=== PATIENT | female | born 1970 | race Caucasian/White ===

== ENCOUNTER 2022-12-20 09:23 | Outpatient (OUT) | payer MEDICARE, MEDICAID, SELFPAY ==
[2022-12-20 10:16] LABS: Basophils Absolute Auto 0.1 10^3/uL (0.0-0.1); Basophils Percent Auto 0.5 % (0.2-2.0); Eosinophils Absolute Auto 0.2 10^3/uL (0.0-0.7); Eosinophils Percent Auto 1.9 % (0.9-7.0); Hematocrit 47.2 % (36.0-48.0); Hemoglobin 15.5 g/dL (12.0-16.0); Immature Granulocytes Abs Auto 0.05 10^3/uL (0.00-0.03); Immature Granulocytes Pct Auto 0.5 % (0.0-0.5); Lymphocytes Absolute Auto 2.7 10^3/uL (1.2-3.8); Lymphocytes Percent Auto 25.8 % (20.5-60.0); Mean Corpuscular HGB Conc 32.8 g/dL (29.9-35.2); Mean Corpuscular Hemoglobin 27.9 pg (26.7-34.0); Mean Corpuscular Volume 84.9 fL (81.0-99.0); Mean Platelet Volume 10.1 fL (9.5-13.5); Monocytes Absolute Auto 0.8 10^3/uL (0.3-0.8); Monocytes Percent Auto 7.4 % (1.7-12.0); Neutrophils Absolute Auto 6.6 10^3/uL (1.4-6.5); Neutrophils Percent Auto 63.9 % (43.0-75.0); Platelet Count 326 10^3/uL (150-450); Red Blood Count 5.56 10^6/uL (4.20-5.40); Red Cell Distribution Width 14.4 % (11.0-15.0); White Blood Count 10.4 10^3/uL (4.0-11.0)
[2022-12-20 13:15] LABS: Anion Gap 14.7; Carbon Dioxide 24.6 mmol/L (21.0-32.0); Chloride 102 mmol/L (98-107); Potassium 4.3 mmol/L (3.5-5.1); Sodium 137 mmol/L (136-145)
[2022-12-20 13:16] LABS: Alanine Aminotransferase 44 U/L (14-59); Albumin Globulin Ratio 0.8; Albumin Level 3.4 g/dL (3.4-5.0); Alkaline Phosphatase 128 U/L (46-116); Aspartate Amino Transferase 20 U/L (15-37); BUN Creatinine Ratio 19.1; Bilirubin Total 0.3 mg/dL (0.2-1.0); Calcium 9.3 mg/dL (8.5-10.1); Cholesterol 210 mg/dL (<=200); Estimated GFR (African America >60 (>=60); Estimated GFR (Non-African Ame >60 (>=60); Globulin 4.4 g/dL; Glucose 99 mg/dL (74-106); Total Protein 7.8 g/dL (6.4-8.2); Triglycerides 144 mg/dL (<=150); VLDL CHOLESTEROL 28.8 mg/dL
[2022-12-20 13:17] LABS: Chol HDL Ratio 4.5; HDL Cholesterol 47 mg/dL (40-60)
[2022-12-20 13:45] LABS: Estimated Average Glucose 111 mg/dL; Glycohemoglobin A1C 5.5 % (4.5-6.2)
== END 2022-12-20 09:24 | disposition home or self-care (01) ==
PROVIDERS: PCP Family Medicine; Visit Provider Nurse Practitioner Acute Care
DX: I11.9 Hypertensive heart disease without heart failure (principal); E78.2 Mixed hyperlipidemia; E11.9 Type 2 diabetes mellitus without complications
CPT/HCPCS: 36415; 80053; 80061; 83036; 85025

== ENCOUNTER 2023-11-08 07:43 | Outpatient (OUT) | payer MEDICARE, MEDICAID, SELFPAY ==
--- NOTE | 2023-11-08 07:46 | CT_ITS ---
The [address] [address] Patient Name: AGNES ROSSI MRN: [id number] date: 1970 Sex: F Assigned Patient Location: CT Current Patient Location: Accession/Order Number: [id number] Exam Date: 11/08/2023 07:49 Report Date: 11/09/2023 09:21 At the request of: RAFAEL MELTON Procedure: CT lung screening low-dose EXAMINATION: CT lung screening low-dose HISTORY: Nicotine Dependence F17.219 COMPARISON: CT chest 10/27/2022 TECHNIQUE: Axial, Coronal, and Sagittal images were created without the administration of IV contrast material. Dose reduction techniques were achieved by using automated exposure control and/or adjustment of mA and/or kV according to patient size and/or use of iterative reconstruction technique. FINDINGS: LUNGS: Scattered calcified granulomas. No suspicious nodules or acute infiltrates. No significant emphysematous changes. PLEURA: No mass, effusion, or pneumothorax. VASCULATURE: No abnormality. NEY: Calcified lymph nodes compatible with chronic granulomatous disease. MEDIASTINUM: Calcified lymph nodes. CARDIAC: No enlargement, pericardial thickening, or pericardial effusion. Coronary artery calcifications: Absent. AORTA: No aneurysm or dissection. CHEST WALL: No mass or axillary adenopathy BONES: No bone lesion or fracture. LIMITED ABDOMEN: No suspicious findings. Limited images of the upper abdomen. OTHER: Negative. CT/CT lung screening low-dose IMPRESSION: 1. Lung-RADS 2- Benign Appearance or Behavior. Nodules with a very low likelihood of becoming a clinically active cancer due to size or lack of growth. Follow-up CT Chest in 1 year. Electronically authenticated by: ALEM PASCUAL Date: 11/09/2023 09:21
== END 2023-11-08 07:44 | disposition home or self-care (01) ==
LOC: CT 07:43
PROVIDERS: PCP Family Medicine; Visit Provider Internal Medicine
DX: F17.219 Nicotine dependence, cigarettes, with unspecified nicotine-induced disorders (principal)
CPT/HCPCS: 71271

== ENCOUNTER 2023-12-14 12:57 | Outpatient (OUT) | payer MEDICARE, SELFPAY ==
--- NOTE | 2023-12-14 13:02 | MM_ITS ---
Patient Name: AGNES ROSSI MR#: [id number] : 1970 Exam Date: 12/14/2023 Ordering Doctor: DR. MELISSA ERAZO . RADIOLOGY REPORT PROCEDURE: MM TOMOSYNTHESIS SCREENING BI COMPARISON: MG MAMM SCREEN ROMI W CAD, 09/19/2016. MG MAMM SCREEN 3D ROMI CAD, 12/01/2021. INDICATIONS: Screening Calculator Name NCI Breast Cancer Risk Assessment Tool 5 Year Breast Cancer Risk 1.00% Lifetime Breast Cancer Risk 8.50% Personal Breast Cancer No Personal Ovarian Cancer No Treatments None Family Cancers None LOCATION: [facility] BREAST COMPOSITION: The breasts are heterogeneously dense,which may obscure small masses. FINDINGS: DIAGNOSTIC CATEGORY 2--BENIGN FINDING. NO CHANGE FROM COMPARISON. Scattered benign-appearing lymph nodes are present. RIGHT BREAST: No significant suspicious finding. LEFT BREAST: No significant suspicious finding. RECOMMENDATIONS: ROUTINE MAMMOGRAM AND CLINICAL EVALUATION IN 12 MONTHS. PLEASE NOTE: A NORMAL MAMMOGRAM DOES NOT EXCLUDE THE POSSIBILITY OF BREAST CANCER. A CLINICALLY SUSPICIOUS PALPABLE LUMP SHOULD BE BIOPSIED. Dictated by: Minh Sanderson MD on 12/14/2023 at 14:38 Approved by: Minh Sanderson MD on 12/14/2023 at 14:39
== END 2023-12-14 12:58 | disposition home or self-care (01) ==
LOC: MAMMO 12:57
PROVIDERS: PCP Family Medicine; Visit Provider Family Medicine
DX: Z12.31 Encounter for screening mammogram for malignant neoplasm of breast (principal)
CPT/HCPCS: 77063; 77067

== ENCOUNTER 2023-12-19 19:41 | Outpatient (OUT) | payer MEDICARE, MEDICAID, SELFPAY ==
--- OUTSIDE RECORDS SUMMARY | 2023-12-19 20:07 | XMS_ITS | CCD ---
Author Organization [facility] Care Team Providers Care Fire Lieutenant Name Role Phone MD Charu Pham Attending Provider [phone] MD Elvia Sweeney Primary Care Provider Charu Pham Unavailable MD Elvia Sweeney Primary Care Provider MD Charu Pham Attending Provider ELVIA SWEENEY Primary Care Physician MD Elvia Sweeney Primary Care Provider [phone] MD Charu Pham Attending Provider SWEENEY ., DR ELVIA Alex Attending Unavailable SWEENEY ., DR ELVIA Alex Consulting Unavailable SWEENEY ., DR ELVIA Alex Admitting Unavailable SWEENEY ., DR ELVIA Alex Primary Care Unavailable SWEENEY ., DR ELVIA Alex Primary Care Unavailable ALGHONAVDEEP EVANS Admitting Unavailable MAYANK MOHAMAD Attending Unavailable DR BRAD SHORE Admitting Unavailable SWEENEY ., DR ELVIA Alex Primary Care Unavailable MONE, DR SALINAS Attending Unavailable DR BRAD SHORE Consulting Unavailable BERRY VIRGEN Admitting Unavailable SWEENEY ., DR ELVIA Alex Primary Care Unavailable BERRY VIRGEN Attending Unavailable BERRY VIRGEN Consulting Unavailable CAITLYN WATTS Consulting Unavailable SWEENEY ., DR ELVIA Alex Primary Care Unavailable JOHANNA MAHAN Admitting Unavailable JOHANNA MAHAN Attending Unavailable JOHANNA MAHAN Consulting Unavailable SWEENEY ., DR ELVIA Alex Primary Care Unavailable JOHANNA MAHAN Admitting Unavailable JOHANNA MAHAN Attending Unavailable JOHANNA MAHAN Consulting Unavailable DR ALEM PASCUAL Consulting Unavailable RENALDO, ASHA Admitting Unavailable MELISSA ERAZO Primary Care Unavailable RENALDO, ASHA Attending Unavailable RENALDO, ASHA Consulting Unavailable SAMSA ., RAFAEL Admitting Unavailable MELISSA ERAZO Primary Care Unavailable SAMSA ., RAFAEL Attending Unavailable ANKUR, DR ALEM Amado Consulting Unavailable SAMSA ., RAFAEL Consulting Unavailable SWEENEY ., DR ELVIA Alex Admitting Unavailable SWEENEY ., DR ELVIA Alex Attending Unavailable SWEENEY ., DR ELVIA Alex Consulting Unavailable SWEENEY ., DR ELVIA Alex Primary Care Unavailable RUDY, DR EULALIA West Consulting Unavailable Renaldobing BRIAN, Asha Unavailable Melissa Erazo Primary Care Physician NAVDEEP TALLEY Attending Unavailable ROCHELLE WOOTENMITPadmini Attending Unavailable NAVDEEP TALLEY Attending Unavailable LUÍS WOOTEN Attending Unavailable Edenilson Moyer Attending Unavailab Edenilson Caballero Admitting Unavailab Elvia Velasco Primary Care Unavailable Melissa Erazo Attending Unavailable Melissa Erazo Attending Unavailable Melissa Erazo Attending Unavailable Melissa Erazo Attending Unavailable Melissa Erazo Attending Unavailable Melissa Erazo Attending Unavailable Melissa Erazo Attending Unavailable Momario, Mohamad A. Admitting Unavailable Mouchmaye Mohamad A. Attending Unavailable Steffanie Mohamad A. Referring Unavailable Melissa Erazo Admitting Unavailable Melissa Erazo Attending Unavailable Matthew Valienteamad A. Attending Unavailable Steffanie Mohamad A. Attending Unavailable Melissa Erazo Referring Unavailable Allergies Allergy Classification Reported Allergen(s) Allergy Type Date of Onset Reaction(s) Facility (20 sources) Dexamethasone; Translations: [dexamethasone] Drug Allergy 12-11-19 21 Unknown (qualifier value), GI Upset [facility] (8 sources) Penicillins; Translations: [Penicillins] Allergy to substance 02-12-20 13 Other: See Comments [facility] (5 sources) Penicillins (Antibiotic) Propensity to adverse reactions [email or web address] Other (8 sources) Penicillin; Translations: [penicillin] Drug Allergy Unknown (qualifier value) [facility] (6 sources) predniSONE; Translations: [prednisone] Drug Allergy Unknown (qualifier value) [facility] (1 source) Acetaminophen / HYDROcodone; Translations: [HYDROCODONE-ACET AMINOPHEN] Drug Allergy 06-23-19 17 [facility] (1 source) Lisinopril; Translations: [LISINOPRIL] Drug Allergy 05-15-20 [facility] (1 source) Dexamethasone; Translations: [Decadron] Drug Allergy [facility] Repository Medications Current Medications Medication Drug Class(es) Dates Sig (Normalized) Sig (Original) 3 ML semaglutide 1.34 MG/ML Pen Injector [Ozempic] (4 sources) Start: 09-25-2023 inject 1 mg by subcutaneous injection every week Ozempic (1 mg dose) 4 mg/3 mL subcutaneous solution See Instructions, INJECT 1 MG SUBCUANEOUSLY WEEKLY, # 9 mL, Refills(s) 3, Pharmacy: [id number], 162, cm, 09/25/23 13:12:00 EDT, Height/Length Dosing, 121.7, kg, 09/25/23 13:12:00 EDT, Weight Dosing Start Date: 09/25/23 Status: Ordered acetaminophen 325 mg / HYDROcodone bitartrate 5 mg oral tablet (7 sources) Opioid Agonist Start: 09-22-2021 take 1 tablet by mouth every four to six hours Hydrocodone-Acetami nophen Active 1 - 2 TAB PO EVERY 4-6 HOURS 30 September 22, 2021 Start: 04-14-2021 End: 09-15-2021 take 1 tablet by mouth every four to six hours Hydrocodone-Acetaminophen Discontinued 1 - 2 TAB PO EVERY 4-6 HOURS 30 April 14, 2021 September 15, 2021 1:33pm apixaban 5 mg oral tablet (1 source) Factor Xa Inhibitor Start: 10-30-2023 take 1 tablet by mouth twice daily Eliquis 5 mg oral tablet 5 mg = 1 tab(s), Oral, BID, Refills(s) 0 Start Date: 10/30/23 Status: Ordered carvedilol 12.5 mg oral tablet (1 source) alpha-Adrenergic Pranay, beta-Adrenergic Pranay Start: 10-31-2023 take 1 tablet by mouth twice daily Coreg 12.5 mg Tab 12.5 mg = 1 tab(s), Oral, BID, Refills(s) 0 Start Date: 10/31/23 Status: Ordered cephalexin 500 mg oral capsule (8 sources) Cephalosporin Antibacterial Start: 09-15-2021 take 500 mg by mouth three times daily Cephalexin Active 500 MG PO Three times daily September 15, 2021 12:00am Start: 09-15-2021 End: 09-15-2021 Cephalexin Discontinued MG A pril 2021 12:00am September 15, 2021 2:19pm cholecalciferol 0.125 mg oral capsule (4 sources) Vitamin D Start: 04-01-2021 take 125 ug by mouth once daily Cholecalciferol (Vitamin D3) Active 125 MCG PO Daily April 01, 2021 12:00am doxycycline hyclate 100 mg oral tablet (11 sources) Tetracycline-c lass Drug Start: 09-22-2021 take 100 mg by mouth twice daily Doxycycline Hyclate Active 100 MG PO Twice daily 03 08September 22, 2021 12:00am Start: 04-14-2021 End: 09-15-2021 take 100 mg by mouth twice daily Doxycycline Hyclate Discontinued 100 MG PO Twice daily 03 08April 14, 2021 1:00am September 15, 2021 1:31pm Start: 02-14-2018 End: 02-24-2018 take 100 mg by mouth twice daily Doxycycline Hyclate Discontinued 100 MG PO Twice daily 23 03February 14, 2018 12:00am February 24, 2018 12:02am DULoxetine 30 mg delayed release oral capsule (9 sources) Serotonin and Norepinephrine Reuptake Inhibitor Start: 04-01-2021 take 60 mg by mouth once daily at bedtime Duloxetine Active 60 MG PO Daily at bedtime April 01, 2021 12:00am take 1 capsule by [facility] every twenty-four hours DULoxetine HCl 60 MG 1 capsule Orally Once a day Active take 1 capsule by mo [facility] every twenty-four hours DULoxetine HCl 30 MG 1 capsule Orally Once a day Active duloxetine 30 mg Cap-DR (1 source) Start: 09-01-2022 take 1 capsule by mouth once daily duloxetine 30 mg Cap-DR 30 mg, Oral, Daily, Refills(s) 0 Start Date: 09/01/22 Status: Ordered famotidine 20 mg oral tablet (9 sources) Histamine-2 Receptor Antagonist Start: 09-15-2021 take 20 mg by mouth once daily Famotidine Active 20 MG PO Daily September 15, 2021 12:00am Start: 05-16-2016 End: 04-01-2021 take 40 mg by mouth once daily Famotidine Discontinued 40 MG PO Daily February 14, 2018 12:00am April 01, 2021 11:02am Comment on above: Famotidine Active 40 MG Oral Daily February 14, 2018 11:07am gabapentin 100 mg oral capsule (12 sources) Anti-epileptic Agent Start: 2020 take 100 mg by mouth three times daily Gabapentin Active 100 MG PO Three times daily April 01, 2021 12:00am Comment on above: Take 100 mg by mouth three times daily. hydroCHLOROthiazide 25 mg oral tablet (3 sources) Thiazide Diuretic Start: 2023 take 1 tablet by mouth once daily hydrochlorothiazide 25 mg Tab 25 mg = 1 tab(s), Oral, Daily, # 90 tab(s), Refills(s) 0, Pharmacy: [id number], 162, cm, 09/25/23 13:12:00 EDT, Height/Length Dosing, 121.7, kg, 09/25/23 13:12:00 EDT, Weight Dosing Start Date: 09/25/23 Status: Ordered hydroCHLOROthiazide 12.5 mg / lisinopril 20 mg oral tablet (3 sources) Thiazide Diuretic, Angiotensin Converting Enzyme Inhibitor take 1 tablet by mouth every twenty-four hours Lisinopril-hydroCHLOROthi azide 20-12.5 MG 1 tablet Orally Once a day Active take 1 tablet by mouth every twe nty-four hours losartan potassium 100 mg oral tablet (11 sources) Angiotensin 2 Receptor Pranay Start: 09-25-2023 take 1 tablet by mouth once daily losartan 100 mg Tab 100 mg = 1 tab(s), Oral, Daily, # 90 tab(s), Refills(s) 0, Pharmacy: [id number], 162, cm, 09/25/23 13:12:00 EDT, Height/Length Dosing, 121.7, kg, 09/25/23 13:12:00 EDT, Weight Dosing Start Date: 09/25/23 Status: Ordered Start: 09-15-2021 take 1 tablet by bony once daily losartan 25 mg Tab 25 mg = 1 tab(s), Oral, Daily, Refills(s) 0 Start Date: 09/01/22 Status: Ordered Losartan Leigh um Active metFORMIN hydrochloride 500 mg oral tablet (17 sources) Biguanide Start: 01-23-2023 take 1 tablet by mouth once daily metformin 500 mg Tab See Instructions, TAKE 1 TABLET BY MOUTH EVERY DAY, # 90 tab(s), Refills(s) 3, Pharmacy: [id number], 162, cm, 09/25/22 11:02:00 EDT, Height/Length Dosing, 138.5, kg, 09/25/22 11:02:00 EDT, Weight Dosing Start Date: 01/23/23 Status: Ordered Start: 02-14-2018 metFORMIN (GLU COPHAGE) 500 mg tablet Metformin Active 500 MG Oral Daily February 14, 2018 11:07am 0 02/14/2018 Active Comment on above: Metformin Active 500 MG Oral Daily February 14, 2018 11:07am minocycline 100 mg oral capsule (1 source) Tetracycline-class Drug take 1 capsule by mouth every twelve hours Minocycline HCl 100 MG 1 capsule Orally every 12 hrs Active montelukast 10 mg oral tablet (5 sources) Leukotriene Receptor Antagonist Start: take 1 tablet by mouth once daily montelukast 10 mg Tab 10 mg = 1 tab(s), Oral, Daily, Refills(s) 0, Shortness of breath or wheezing Start Date: 09/01/22 Status: Ordered Comment on above: Take 10 mg by mouth once daily. Nurtec (3 sources) Nurtec Active Nurtec Damien-Olinda g omeprazole 20 mg delayed release oral capsule (16 sources) Proton Pump Inhibitor Start: 09-01-2022 omeprazo le 20 mg Cap-DR 20 mg = 1 cap(s), Oral, Daily, Refills(s) 0, Control of stomach acid Start Date: 09/01/22 Status: Ordered Start: 04-01-2021 End: 09-15-2021 take 20 mg by mouth once daily in the morning Omeprazole Discontinued 20 MG PO Every morning April 01, 2021 12:00am September 15, 2021 1:43pm take 1 capsule by [facility] once daily Omeprazole 40 MG 1 capsule 30 minutes before morning meal Orally Once a day Active Ozempic (3 sources) Ozempic Active polyethylene glycol 3350 88276 mg powder for oral solution (3 sources) Osmotic Laxative Start: 3 take 17 g by mouth once daily polyethylene glycol 3350 Oral Pwdr for Recon 17 gm, Oral, Daily, Refills(s) 0 Start Date: 09/01/22 Status: Ordered rimegepant 75 mg disintegrating oral tablet (9 sources) Start: 3 take 1 tablet under the tongue once Nurtec ODT 75 mg oral tablet, disintegrating 75 mg = 1 tab(s), SubLingual, Once, at onset of migraine, Refills(s) 0, Migraine headache Start Date: 09/25/22 Status: Ordered Start: 09-15-2021 Rimegepant (Nu rtec Odt) 75 mg tablet,disintegrating Active 75 MG PO As Directed September 15, 2021 12:00am 1 mg dose 1.5 ml semaglutide 1.34 mg/ml pen injector (1 source) Start: 09-25-2022 inject 1 mg by subcutaneous injection every week Ozempic 2 mg/1.5 mL (1 mg dose) subcutaneous solution 1 mg, SubCutaneous, qWeek, 6 EA, Refill(s) 0, [facility] #[id number], 162, cm, 09/25/22 11:02:00 EDT, Height/Length Dosing, 138.5, kg, 09/25/22 11:02:00 EDT, Weight Dosing Start Date: 09/25/22 Status: Ordered SUMAtriptan 100 mg oral tablet (6 sources) Serotonin-1b and Serotonin-1d Receptor Agonist Start: 10-04-2020 Sumatriptan Succinate Active 100 MG PO As Directed April 01, 2021 12:00am SUMAtriptan Acti ve Comment on above: TAKE 1 TAB AT ONSET OF MIGRAINE,MAY REPEAT IN 2 HRS MAX 2 TABS/DAY, 2 TIMES A WEEK topiramate 50 mg oral tablet (20 sources) Start: 09-01-2022 take 1 tablet by mouth twice daily Topamax 50 mg Tab 50 mg = 1 tab(s), Oral, BID, Refills(s) 0, Migraine headache Start Date: 09/01/22 Status: Ordered Start: 04-01-2021 End: 09-15-2021 take 1 tablet by mouth twice daily Topamax 50 mg Tab 50 mg = 1 tab(s), Oral, BID, Refills(s) 0 Start Date: 09/01/22 Status: Ordered Start: 12-01-2020 take 1 tablet by bony th twice daily topiramate (TOPAMAX) 25 mg tablet Take 25 mg by mouth twice daily. 0 12/01/2020 Active take 1 tablet by bony th every twenty-four hours Topamax 50 MG 1 tablet Orally Once a day Active Comment on above: Take 25 mg by mouth twice daily. Vitamin D3 (1 source) Vitamin D3 Activ e Completed/Discontinued Medications Medication Drug Class(es) Dates Sig (Normalized) Sig (Original) acetaminophen 300 mg / codeine phosphate 30 mg oral tablet (4 sources) Opioid Agonist Start: 02-14-2018 End: 04-01-2021 take 1 tablet by mouth every four to six hours Acetaminophen-Code ine Discontinued 1 TAB PO EVERY 4-6 HOURS February 14, 2018 12:00am April 01, 2021 11:05am albuterol 0.83 mg/ml inhalation solution (11 sources) beta2-Adrenergic Agonist Start: 02-14-2018 albuterol (PROVENTIL) 2.5 mg /3 mL (0.083 %) nebulizer solution Albuterol Sulfate Active 1 INH Inhalation EVERY 4-6 HOURS February 14, 2018 11:07am 0 02/14/2018 Active Start: 02-14-2018 take 1 puff(s) by in halation every four to six hours Albuterol Sulfate Active 1 PUFF INHALATION EVERY 4-6 HOURS February 14, 2018 12:07pm Start: 02-14-2018 Albuterol Sulf ate Active 1 INH INHALATION EVERY 4-6 HOURS February 14, 2018 12:00am Start: 02-14-2018 take 1 puff(s) by in halation every four to six hours Albuterol Sulfate Active 1 PUFF INHALATION EVERY 4-6 HOURS February 14, 2018 12:00am Start: 02-14-2018 take 1 puff(s) by in halation every four to six hours Albuterol Sulfate Active 1 PUFF INHALATION EVERY 4-6 HOURS February 13, 2018 11:00pm take 2 puff(s) by in halation every four hours as needed Albuterol Sulfate HFA 108 (90 Base) MCG/ACT INHALE 2 PUFFS EVERY 4 HOURS NEEDED Inhalation for 17 Days Active Comment on above: Albuterol Sulfate Ac tive 1 INH Inhalation EVERY 4-6 HOURS February 14, 2018 11:07am benzonatate 100 mg oral capsule (4 sources) Non-narcotic Antitussive Start: 02-15-20 18 End: 02-20-20 18 take 1 capsule by mouth three times daily Benzonatate (Tessalon Perles) 100 mg capsule Discontinued 100 MG PO Three times daily 20 February 14, 2018 12:57pm February 19, 2018 12:01am 60 actuat budesonide 0.16 mg/actuat / formoterol fumarate 0.0045 mg/actuat metered dose inhaler (7 sources) Corticosteroid, beta2-Adrenergic Agonist Start: 11-27-19 take 2 puff(s) by inhalation twice daily SYMBICORT 160-4.5 mcg/actuation inhaler Inhale 2 Puffs as instructed twice daily. 0 11/26/2020 Active Start: 02-14-2018 End: 04-01-2021 take 1 puff(s) by inhalation every four to six hours Budesonide-Formoterol (Symbicort) 160-4.5 mcg/actuation HFA aerosol inhaler Discontinued 1 PUFF INHALATION EVERY 4-6 HOURS February 14, 2018 12:07pm April 01, 2021 11:05am Start: 02-14-2018 End: 04-01-2021 take 1 puff(s) by inhalation every four to six hours Budesonide-Formoterol (Symbicort) 160-4.5 mcg/actuation HFA aerosol inhaler Discontinued 1 PUFF INHALATION EVERY 4-6 HOURS February 14, 2018 12:00am April 01, 2021 11:05am Start: 02-14-2018 End: 04-01-2021 take 1 puff(s) by inhalation every four to six hours Budesonide-Formoterol (Symbicort) 160-4.5 mcg/actuation HFA aerosol inhaler Discontinued 1 PUFF INHALATION EVERY 4-6 HOURS February 13, 2018 11:00pm April 01, 2021 10:05am take 2 puff(s) by mo uth twice daily Symbicort 160-4.5 MCG/ACT INHALE 2 PUFFS BY MOUTH TWICE A DAY Inhalation for 30 Days Active Comment on above: Inhale 2 Puffs as in structed twice daily. dicyclomine hydrochloride 20 mg oral tablet (1 source) Anticholinergic Start: take 1 tablet by mouth every six hours as needed for pain dicyclomine (BENTYL) 20 mg tablet TAKE 1 TABLET BY MOUTH EVERY 6 HOURS NEEDED FOR ABDOMINAL PAIN 0 10/17/2020 Active Comment on above: TAKE 1 TABLET BY BONY TH EVERY 6 HOURS NEEDED FOR ABDOMINAL PAIN metoclopramide 10 mg oral tablet (1 source) Dopamine-2 Receptor Antagonist Start: take 1 tablet by mouth every six hours as needed metoclopramide HCl (REGLAN) 10 mg tablet Take 10 mg by mouth every 6 hours as needed. 0 10/17/2020 Active Comment on above: Take 10 mg by mouth every 6 hours as needed. nystatin 100 unt/mg topical powder (1 source) Polyene Antifungal Start: nystatin (MYCOSTATIN) powder APPLY TO AFFECTED AREA 4 TIMES A DAY NEEDED 0 12/29/2019 Active Comment on above: APPLY TO AFFECTED AR EA 4 TIMES A DAY NEEDED sertraline 25 mg oral tablet (1 source) Serotonin Reuptake Inhibitor Start: take 1 tablet by mouth once daily in the morning sertraline (ZOLOFT) 25 mg tablet TAKE 1 TABLET BY MOUTH EVERY DAY IN THE MORNING 0 12/26/2019 Active Comment on above: TAKE 1 TABLET BY BONY TH EVERY DAY IN THE MORNING triamcinolone acetonide 40 mg/ml injectable suspension (2 sources) Corticosteroid Start: Kenalog-40 October, 20 mg verapamil hydrochloride 120 mg extended release oral tablet (9 sources) Calcium Channel Pranay Start: End: Verapamil Discontinued 120 MG PO 1700 April 01, 2021 12:00am September 15, 2021 2:19pm take 1 tablet by mouth every eig ht hours Verapamil HCl 120 MG 1 tablet Orally Three times a day Not-Taking Problems Active Problems Problem Classification Problem Date Documented Da te Episodic/Chronic Abdominal hernia (2 sources) Diaphragmatic hernia; Translations: [Diaphragmatic hernia without obstruction or gangrene] Onset: 4 Episodic Asthma (11 sources) 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; Translations: [Asthma] Onset: 3 09-01-2022 Chronic Cardiac dysrhythmias (1 source) Atrial fibrillation 10-30-2023 Chronic Cardiac dysrhythmias (2 sources) Palpitations; Translations: [Palpitations] Onset: 3 Episodic Chronic obstructive pulmonary disease and bronchiectasis (2 sources) Chronic obstructive pulmonary disease, unspecified; Translations: [Chronic obstructive pulmonary disease, unspecified] Onset: 3 Chronic Diabetes mellitus with complications (1 source) Type 2 diabetes mellitus with unspecified complications; Translations: [TYPE 2 DM W/UNS COMPLICATIONS] Onset: 2 Chronic Diabetes mellitus without complication (12 sources) Type 2 diabetes mellitus; Translations: [Type 2 diabetes mellitus without complication] Onset: 3 09-01-2022 Chronic Disorders of lipid metabolism (3 sources) Pure hypercholesterolemia, unspecified; Translations: [Mixed hyperlipidemia] Onset: 2 Chronic Esophageal disorders (5 sources) Gastroesophageal reflux disease without esophagitis; Translations: [Gastro-esophageal reflux disease without esophagitis] Onset: 4 Chronic Essential hypertension (7 sources) Hypertensive disorder; Translations: [Essential (primary) hypertension] Onset: 3 09-25-2022 Chronic Headache; including migraine (5 sources) Headache 09-01-2022 Episodic Hemorrhoids (5 sources) Hemorrhoids 09-01-2022 Episodic Hypertension with complications and secondary hypertension (2 sources) Hypertensive heart disease without heart failure; Translations: [Hypertensive heart disease without heart failure] Onset: 3 Chronic Joint disorders and dislocations; trauma-related (5 sources) Derangement of knee 09-01-2022 Chronic Nutritional deficiencies (6 sources) Deficiency of vitamin D3; Translations: [Vitamin D deficiency, unspecified] Onset: 2 09-01-2022 Chronic Osteoarthritis (5 sources) Osteoarthritis 09-01-2022 Chronic Comment on above: idiopathic Other and unspecified benign neoplasm (2 sources) Polyp of colon; Translations: [Polyp of colon] Onset: 4 Episodic Other circulatory disease (10 sources) Raynaud's phenomenon 09-01-2022 Chronic Comment on above: isolated, primary Other connective tissue disease (5 sources) Thumb joint painful on movement 09-25-2022 Episodic Other connective tissue disease (2 sources) Pain in right hand Episodic Other connective tissue disease (2 sources) Trigger thumb, right thumb Episodic Other connective tissue disease (1 source) Disorder of muscle; Translations: [Other specified disorders of muscle] Onset: 4 Episodic Other connective tissue disease (3 sources) Pelvic floor dysfunction 10-18-2023 Episodic Other gastrointestinal disorders (1 source) Constipation by outlet obstruction; Translations: [Outlet dysfunction constipation] Onset: 4 Episodic Other gastrointestinal disorders (3 sources) Constipation 10-18-2023 Episodic Other gastrointestinal disorders (1 source) Constipation, unspecified; Translations: [Constipation, unspecified] Onset: 4 Episodic Other inflammatory condition of skin (5 sources) Psoriasis 09-01-2022 Chronic Other liver diseases (5 sources) Steatosis of liver 09-01-2022 Chronic Other liver diseases (1 source) Fatty (change of) liver, not elsewhere classified; Translations: [FATTY CHANGE LIVER NEC] Onset: 2 Chronic Other lower respiratory disease (1 source) Apnea; Translations: [Apnea, not elsewhere classified] Onset: 4 Episodic Other nervous system disorders (4 sources) Carpal tunnel syndrome; Translations: [Carpal tunnel syndrome, unspecified upper limb] 04-14-2021 Chronic Other nervous system disorders (4 sources) Ulnar nerve entrapment at elbow; Translations: [Lesion of ulnar nerve, unspecified upper limb] 04-14-2021 Chronic Other nervous system disorders (12 sources) Lesion of ulnar nerve, left upper limb; Translations: [Cubital tunnel syndrome on left] Onset: 1 Resolved: 2 Chronic Other nervous system disorders (7 sources) Carpal tunnel syndrome of left wrist; Translations: [Carpal tunnel syndrome, left upper limb] Chronic Other nervous system disorders (5 sources) Carpal tunnel syndrome, left upper limb; Translations: [Left carpal tunnel syndrome G56.02] Onset: 1 Resolved: 2 Chronic Other nervous system disorders (3 sources) Carpal tunnel syndrome of right wrist; Translations: [Carpal tunnel syndrome, right upper limb] Chronic Other nervous system disorders (1 source) Carpal tunnel syndrome, right upper limb Chronic Other nervous system disorders (5 sources) 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 Comment on above: left arm Other nervous system disorders (4 sources) Pain in limb; Translations: [Other acute postprocedural pain] 04-14-2021 Episodic Other nervous system disorders (2 sources) Anesthesia of skin Onset: 2 Resolved: 2 Episodic Other non-traumatic joint disorders (4 sources) Pain in unspecified hip; Translations: [PAIN IN UNSPECIFIED HIP] Onset: 3 Episodic Other nutritional; endocrine; and metabolic disorders (5 sources) Metabolic syndrome X 09-01-2022 Chronic Other nutritional; endocrine; and metabolic disorders (6 sources) Morbid obesity; Translations: [Morbid (severe) obesity due to excess calories] Onset: 4 09-01-2022 Chronic Other nutritional; endocrine; and metabolic disorders (1 source) Metabolic syndrome; Translations: [METABOLIC SYNDROME] Onset: 2 Chronic Other nutritional; endocrine; and metabolic disorders (5 sources) Body mass index 40+ - severely obese; Translations: [Morbid (severe) obesity due to excess calories] Onset: 1 12-10-2020 Chronic Other nutritional; endocrine; and metabolic disorders (2 sources) Morbid (severe) obesity due to excess calories; Translations: [Morbid (severe) obesity due to excess calories] Onset: 3 Chronic Other nutritional; endocrine; and metabolic disorders (1 source) Obesity; Translations: [Other obesity due to excess calories] Onset: 4 Chronic Other nutritional; endocrine; and metabolic disorders (1 source) Obesity caused by energy imbalance 11-14-2023 Chronic Other screening for suspected conditions (not mental disorders or infectious disease) (9 sources) Encounter for screening mammogram for malignant neoplasm of breast; Translations: [Encounter for screening for malignant neoplasm of cervix] Onset: 2 Episodic Residual codes; unclassified (4 sources) Obstructive sleep apnea (adult) (pediatric); Translations: [OBSTRUCTIVE SLEEP APNEA] Onset: 2 Chronic Residual codes; unclassified (1 source) Idiopathic hypersomnia with long sleep time; Translations: [IDIO HYPERSOMNIA W/LONG SLEEP TIME] Onset: 2 Chronic Residual codes; unclassified (4 sources) Other specified postprocedural states Onset: 1 Resolved: 2 Episodic Residual codes; unclassified (2 sources) Acquired absence of organ; Translations: [Acquired absence of other specified parts of digestive tract] Onset: 4 Episodic Residual codes; unclassified (2 sources) Pelvic organ finding; Translations: [Acquired absence of both cervix and uterus] Onset: 4 Episodic Spondylosis; intervertebral disc disorders; other back problems (2 sources) Arthropathy of lumbar facet joint; Translations: [Spondylosis without myelopathy or radiculopathy, lumbar region] 02-02-2021 Chronic Spondylosis; intervertebral disc disorders; other back problems (5 sources) Sciatica 09-01-2022 Episodic Substance-related disorders (11 sources) Smoker; Translations: [Nicotine dependence, cigarettes, with unspecified nicotine-induced disorders] Onset: 3 09-25-2022 Chronic Unclassified (2 sources) COUGH, UNSPECIFIED; Translations: [COUGH, UNSPECIFIED] Onset: 2 Unclassified (1 source) CONTACT W/AND (SUSP) EXPOS COVID-19; Translations: [CONTACT W/AND (SUSP) EXPOS COVID-19] Onset: 2 Unclassified (4 sources) Patient encounter status 09-25-2023 Past or Other Problems Problem Classification Problem Date Documented Da te Episodic/Chronic Other upper respiratory infections (1 source) Acute upper respiratory infection, unspecified; Translations: [ACUTE UP RESPIRATORY INFECTION UNS] Onset: 11-28-2021 Episodic Residual codes; unclassified (2 sources) Tobacco use; Translations: [Tobacco use] Onset: 02-16-2023 Episodic Unclassified (1 source) COUGH, UNSPECIFIED; Translations: [COUGH, UNSPECIFIED] Onset: 11-25-2021 Results Test Name Value Interpretation Reference Range [facility] [place] [facility] Office/Clini c Noteon 12-13-2023 Family Medicine Office/Clinic Note Family Medicine Office/Clinic Note Chief Complaint Inital Medicare Wellness Visit Review of Systems PHQ Score Initial Depression Screen Score: 0 SCORE Physical Exam Vitals & Measurements HR: 65(Peripheral) BP: 130/70 SpO2: 93% HT: 161.5 cm HT: 64 in WT: 123.7 kg WT: 272.14 lb BMI: 47.43 Assessment/Plan 1. Encounter for initial annual wellness visit in Medicare patient (Z00.00: Encounter for general adult medical examination without abnormal findings) The patient was given a customized and personalized print out of all the current AHRQ USPSTF?s recommendations for preventative services and all current CDC recommended immunizations, relevant risk recommendations and the following patient brochures were given. Reviewed Medicare Prevention Services checklist. CDC-Falls Prevention and home safety screening reviewed. [place] Advance Directives reviewed. Patient provided with education and documents given to patient to take home and complete. Patient encouraged to bring in for scanning into chart. Patient denies any problems with ADL?s and Instrumental ADL?s. Cognitive screening completed with memory and clock face drawing. No deficits noted. Immunization record reviewed patient declined flu and pneumococcal immunizations today. Discussed Shingrix vaccine with educational handout and availability. No COVID vaccines have been administered. Allergies and medications reviewed and up to date. No concerns with taking medication as prescribed. Reviewed OTC medications, medication list up to date. Blood tests were reviewed. Labs are UTD. No concerns with bowel/bladder. Colonoscopy last completed 10/22/2023. Reviewed pain symptoms : chronic knee pain, rates pain as a 3 out of 10, no pain medications taken. Patient sees Dr. Kay as needed for knee pain. Patient does not have a follow up scheduled as she reports she is to call and make an appointment when she is ready for knee replacement surgery. Patient declines any signs or symptoms of depression at this time. 8 minutes spent with screening and documentation. PHQ2 screening score 0. Patient denies alcohol usage. 2 minutes spent with screening and documentation. Audit score 0 . Follow up scheduled with PCP, 12/27/2023. AWV has been scheduled, 12/04/2024. Abnormal findings with fall risk. Patient admits to 3-4 falls in last 12 months and voices worries about falling. Patient has problems with sitting, standing or ambulation due to chronic pain in her knees. Patient aware with keeping walk way area free of clutter to prevent tripping and/or falling. Patient admits to using a cane at home to assist her with ambulation. Patient qualifies for chronic care management, declines at this time. Handout provided to patient on CCM and instructed to call office if she changes her mind. 2. Afib (I48.91: Unspecified atrial fibrillation) Patient denies having episodes with irregular or fast/rapid heartbeat. Heart rate in office today is 65 and regular. Taking medications Eliquis and carvedilol. Denies concerns with increased fatigue and/or sudden change in weight. No pain to chest or belly region. Patients are at higher risk of this condition if you smoke, are older, have diabetes, or are overweight. Voices understanding with symptoms to monitor for and follow instructions about medicines, diet, exercise, and follow up visits. Patient follows up with [facility], last visit notes available in chart and have been reviewed. Cardiac Healthy Nutrition reviewed with patient. Patient has cardiology follow up 12/14/2023. 3. Morbid obesity (E66.01: Morbid (severe) obesity due to excess calories) A combination of diet and exercise can help you lose weight. Discussed weight loss benefits to dietary management and overall health with increased cardiovascular risks associated with waist measurement female>35 men>40. Reminded of importance to work on lowering current body weight with healthy dietary intake choices and portion control. Reviewed goals and patients readiness with needing to make a lifestyle change. Will work on increasing daily activity to prevent further weight gain. Will continue to monitor during office visits with progress. 4. Body mass index (BMI) of 45.0-49.9 in adult (Z68.42: Body mass index [BMI] 45.0-49.9, adult) The standard range for ages 18 and older is >=18.5 and < 25 kg/m2. Your BMI 47.43 today was above this range, this falls in the morbid obese category and there are medical benefits to weight loss. BMI monitoring is helpful with identifying a weight problem that may be related to a medical condition, or may increase the risk for medical problems. Your BMI and weight management will be followed at subsequent visits with your provider and monitored for progress. 5. Controlled type 2 diabetes mellitus without complication, without long-term current use of insulin, (E11.9: Type 2 diabetes mellitus without complications)Diabe tavo mellitus type II, controlled Patient is compliant on current DM medica (more content not included)... [facility] Comment on above: Result Comment: Elec tronically Signed By: Freeman AIKEN, Melissa Mary\.br\Date and Time Signed: 12/13/23 08:15 EDT\.br\Electronically Co-Signed By: Sophie Cano\.elijah\Date and Time Co-Signed: 12/03/23 15:44 EDT Ambulatory Visit Summaryon 0 12-03-2023 Ambulatory Visit Summary Ambulatory Visit Summary JOVANA XIE :1970 Visit Date:12/03/2023 Ambulatory Visit Instructions Your Diagnosis Encounter for initial annual wellness visit in Medicare patient Afib Morbid obesity Body mass index (BMI) of 45.0-49.9 in adult Controlled type 2 diabetes mellitus without complication, without long-term current use of insulin, Diabetes mellitus type II, controlled HTN (hypertension) Osteoarthritis Advanced directives, counseling/discussi on Screening mammogram for breast cancer, Screening mammogram for breast cancer Immunization refused Tests Performed [place] Mamm Screen w/CAD if perf and 3D Armaan -- Results Pending -- Please visit your patient portal for your results or contact your primary care physician. Your Care Team Attending Physician - Melissa Erazo MD Primary Care Physician - Melissa Erazo MD. This Is Your Medications List apixaban (Eliquis 5 mg oral tablet) carvedilol (Coreg 12.5 mg Tab) hydrochlorothiazide (hydrochlorothiazid e 25 mg Tab) losartan (losartan 100 mg Tab) metformin (metformin 500 mg Tab) omeprazole (omeprazole 20 mg Cap-DR) rimegepant (Nurtec ODT 75 mg oral tablet, disintegrating) semaglutide (Ozempic (1 mg dose) 4 mg/3 mL subcutaneous solution) topiramate (Topamax 50 mg Tab) Procedures Performed Colonoscopy (10/22/2023), Esophagogastroduode noscopy (10/22/2023), Cardiac catheter (2005), MANDI BSO - Total abdominal hysterectomy and bilateral salpingo-oophorecto my (01/15/2004), Arthroscopy, History of lumbar spine surgery, Tonsillectomy and adenoidectomy. Discharge Vitals Heart Rate (Peripheral) 65 Blood Pressure 130/70 Height 161.5 cm Height 64 in Weight 123.7 kg Weight 272.14 lb BMI 47.43 What to do next Scheduled Follow-Up Appointments 2023 2:00 PM EDT With: Freeman AIKEN, Melissa Mary Where: [facility] [address] [place] [id number]- \.br\ Medications\.br\ What How Much When Instructions\.br\ Unchanged apixaban (Eliquis 5 mg oral tablet) 1 Tablets By Mouth 2 times a day\.br\ Unchanged carvedilol (Coreg 12.5 mg Tab) 1 Tablets By Mouth 2 times a day\.br\ Unchanged hydrochlorothiazide (hydrochlorothiazide 25 mg Tab) 1 Tablets By Mouth Every day\.br\ Unchanged losartan (losartan 100 mg Tab) 1 Tablets By Mouth Every day\.br\ Unchanged metformin (metformin 500 mg Tab) See instructions TAKE 1 TABLET BY MOUTH EVERY DAY \.br\ Unchanged omeprazole (omeprazole 20 mg Cap-DR) 1 Capsules By Mouth Every day\.br\ Unchanged rimegepant (Nurtec ODT 75 mg oral tablet, disintegrating) 1 Tablets Sublingual Once at onset of migraine \.br\ Unchanged semaglutide (Ozempic (1 mg dose) 4 mg/ 3 mL subcutaneous solution) See instructions INJECT 1 MG SUBCUANEOUSLY WEEKLY \.br\ Unchanged topiramate (Topamax 50 mg Tab) 1 Tablets By Mouth 2 times a day\.br\ Allergies\.br\ Decadron (Unknown)\.br\ predniSONE (Unknown)\.br\ penicillin (Unknown)\.br\ Problems\.br\ Ongoing - Any problem that you are currently receiving treatment for.\.br\ Afib\.br\ Body mass index (BMI) of 45.0-49.9 in adult\.br\ Chronic GERD\.br\ Colon cancer screening\.br\ Colon polyp\.br\ Constipation, outlet dysfunction\.br\ Controlled type 2 diabetes mellitus without complication, without long-term current use of insulin\.br\ Derangement of knee\.br\ Diabetes mellitus type II, controlled\.br\ Extrinsic asthma with status asthmaticus\.br\ Headache\.br\ Hemorrhoids\.br\ Hiatal hernia\.br\ HTN (hypertension)\.br\ Metabolic syndrome X\.br\ Morbid obesity\.br\ Obesity due to excess calories\.br\ Osteoarthritis\.br\ Pain in thumb joint with movement of right hand\.br\ Pelvic floor dysfunction\.br\ Psoriasis\.br\ Raynaud's phenomenon without gangrene\.br\ Raynauds phenomenon\.br\ S/P cholecystectomy\.br\ S/P hysterectomy\.br\ Sciatica\.br\ Smoker\.br\ Steatosis of liver\.br\ Ulnar neuropathy\.br\ Vitamin D3 deficiency\.br\ Historical - Any problem that you are no longer receiving treatment for.\.br\ Asthma\.br\ Patient Survey\.br\ You may receive a survey via text or e-mail asking about your office visit. Please share your experience with us by completing your survey. We appreciate your feedback and thank you for choosing us for your care.\.br\ Education Materials\.br\ Diabetes Mellitus Basics\.br\ \.br\ Diabetes mellitus, or diabetes, is a long-term (chronic) disease. It occurs when the body does not properly use sugar (glucose) that is released from food after you eat.\.br\ Diabetes mellitus may be caused by one or both of these problems:\.br\ ? \.br\ Your pancreas does not make enough of a hormone called insulin.\.br\ ? \.br\ Your body does not react in a normal way to the insulin that it makes.\.br\ Insulin lets glucose enter cells in your body. This gives you energy. If you have diabetes, glucose cannot get into cells. This causes high blood glucose (hyperglycemia).\.br \ How to treat and manage diabetes\.br\ You may need to take insulin or other diabetes medicines daily to keep your glucose in balance. If you are prescribed insulin, you will learn how to give yourself insulin by injection. You may need to adjust the amount of insulin you take based on the foods that you eat.\.br\ You will need to check your blood glucose levels using a glucose monitor as told by your health care provider. The readings can help determine if you have low or high blood glucose.\.br\ Generally, you should have these blood glucose levels:\.br\ ? \.br\ Before meals (preprandial): 80?130 mg/dL (4.4?7.2 mmol/L).\.br\ ? \.br\ After meals (postprandial): below 180 mg/dL (10 mmol/L).\.br\ ? \.br\ Hemoglobin A1c (HbA1c) level: less than 7%.\.br\ Your health care provider will set treatment goals for you.\.br\ Keep all follow-up visits. This is important.\.br\ Follow these instructions at home:\.br\ Diabetes medicines\.br\ Take your diabetes medicines every day as told by your health care provider. List your diabetes medicines here:\.br\ ? \.br\ Name of medicine: \.br\ ? \.br\ Amount (dose): Time (a.m./p.m.): Notes: \.br\ ? \.br\ Name of medicine: \.br\ ? \.br\ Amount (dose): Time (a.m./p.m.): Notes: \.br\ ? \.br\ Name of medicine: \.br\ ? \.br\ Amount (dose): Time (a.m./p.m.): Notes: \.br\ Insulin\.br\ If you use insulin, list the types of insulin you use here:\.br\ ? \.br\ Insulin type: \.br\ ? \.br\ Amount (dose): Time (a.m./p.m.): Notes : \.br\ ? \.br\ Insulin type: \.br\ ? \.br\ Amount (dose): Time (a.m./p.m.): Notes: \.br\ ? \.br\ Insulin type: \.br\ ? \.br\ Amount (dose): Time (a.m./p.m.): Notes: \.br\ ? \.br\ Insulin type: \.br\ ? \.br\ Amount (dose): Time (a.m./p.m.): Notes: \.br\ ? \.br\ Insulin type: \.br\ ? \.br\ Amount (dose): Time (a.m./p.m.): Notes: \.br\ Managing blood glucose\.br\ \.br\ Check your blood glucose levels using a glucose monitor as told by your health care provider.\.br\ Write down the times that you check your glucose levels here:\.br\ ? \.br\ Time: Notes: \.br\ ? \.br\ Time: Notes: \.br\ ? \.br\ Time: Notes: \.br\ ? \.br\ Time: Notes: \.br\ ? \.br\ Time: Notes: \.br\ ? \.br\ Time: Notes: \.br\ Low blood glucose\.br\ Low blood glucose (hypoglycemia) is when glucose is at or below 70 mg/dL (3.9 mmol/L). Symptoms may include:\.br\ ? \.br\ Feeling:\.br\ ? \.br\ Hungry.\.br\ ? \.br\ Sweaty and clammy.\.br\ ? \.br\ Irritable or easily upset.\.br\ ? \.br\ Dizzy.\.br\ ? \.br\ Sleepy.\.br\ ? \.br\ Having:\.br\ ? \.br\ A fast heartbeat.\.br\ ? \.br\ A headache.\.br\ ? \.br\ A change in your vision.\.br\ ? \.br\ Numbness around the mouth, lips, or tongue.\.br\ ? \.br\ Having trouble with:\.br\ ? \.br\ Moving (coordination).\.br\ ? \.br\ Sleeping.\.br\ Treating low blood glucose\.br\ To treat low blood glucose, eat or drink something containing sugar right away. If you can think clearly and swallow safely, follow the 15:15 rule:\.br\ ? \.br\ Take 15 grams of a fast-acting carb (carbohydrate), as told by your health care provider.\.br\ ? \.br\ Some fast-acting carbs are:\.br\ ? \.br [facility] Consultation Noteon 11-28-19 Consultation Note [id number] Normal [facility] Ambulatory Visit Summaryon 0 11-27-2023 Ambulatory Visit Summary JOVANA XIE :1970 Visit Date:11/27/2023 Ambulatory Visit Instructions Your Diagnosis HTN (hypertension) Your Care Team Attending Physician - Melissa Erazo MD Primary Care Physician - Melissa Erazo MD This Is Your Medications List apixaban (Eliquis 5 mg oral tablet) carvedilol (Coreg 12.5 mg Tab) losartan (losartan 100 mg Tab) metformin (metformin 500 mg Tab) omeprazole (omeprazole 20 mg Cap-DR) rimegepant (Nurtec ODT 75 mg oral tablet, disintegrating) semaglutide (Ozempic (1 mg dose) 4 mg/3 mL subcutaneous solution) topiramate (Topamax 50 mg Tab) Procedures Performed Colonoscopy (10/22/2023), Esophagogastroduode noscopy (10/22/2023), Cardiac catheter (2005), MANDI BSO - Total abdominal hysterectomy and bilateral salpingo-oophorecto my (01/15/2004), Arthroscopy, History of lumbar spine surgery, Tonsillectomy and adenoidectomy. Discharge Vitals Temperature (Oral) 36.6 ?C Heart Rate (Peripheral) 70 Respiratory Rate 18 Blood Pressure 128/82 Height 162 cm Height 64 in Weight 122.5 kg Weight 269.5 lb BMI 46.68 What to do next Scheduled Follow-Up Appointments Sunday 11:00 AM EDT Where: [facility] [place] [facility] Family Medicine Office/Clini c Noteon 11-27-2023 Family Medicine Office/Clinic Note HPI Staff Jovana is a 53 year old female presenting for one month follow up htn Patient is here for follow up on hypertension. How often are you checking your blood pressure? Daily What are your average readings? feels it's good Yearly BMP: 09/25/23 questions/concerns; says the a fib is driving her nuts, has appt cardiology the 12th History of Present Illness Pt here for follow up. - Feeling off with the her HR - Has had pulses of 30-40 by machine and then 70-80 manually. Review of Systems PHQ Score Initial Depression Screen Score: 0 SCORE Physical Exam Vitals & Measurements T: 36.6 ?C(Oral) HR: 70(Peripheral) RR: 18 BP: 128/82 SpO2: 98% HT: 64 in HT: 162 cm WT: 122.5 kg WT: 269.5 lb BMI: 46.68 General: alert, no acute distress ENMT: oral mucosa moist, Cardiovascular: irregularly-irregul ar rate and rhythm, normal peripheral perfusion Respiratory: Lungs CTA, respirations non labored Extremities: no deformity, no trauma Neurological: oriented x 4, LOC appropriate for age, CN II-XII intact, motor strength equal & normal bilaterally, speech normal Abdomen: Soft, Nontender, Non-distended, + BS Assessment/Plan Total time spent preparing for the encounter, evaluating and assessing the patient, documenting the visit, and ordering appropriate follow-up work was 40 minutes. 1. HTN (hypertension) (I10: Essential (primary) hypertension) - At goal. - No issues at this time. - On a BB 2. Afib (I48.91: Unspecified atrial fibrillation) - Intermittent - Normal SR then has a bout of Afib. - Called cardiology they want to see her. - Then if its abnormal, they want her to go to the ER - Concerns discussed with [facility] that its when she coughs that her heart rhythm goes back in NSR. Follow-up No qualifying data available Patient Education Hypertension, Adult Problem List/Past Medical History Ongoing Afib Asthma Body mass index (BMI) of 45.0-49.9 in adult Chronic GERD Colon cancer screening Colon polyp Constipation, outlet dysfunction Controlled type 2 diabetes mellitus without complication, without long-term current use of insulin Derangement of knee Diabetes mellitus type II, controlled Extrinsic asthma with status asthmaticus Headache Hemorrhoids Hiatal hernia HTN (hypertension) Metabolic syndrome X Morbid obesity Obesity due to excess calories Osteoarthritis Pain in thumb joint with movement of right hand Pelvic floor dysfunction Psoriasis Raynaud's phenomenon without gangrene Raynauds phenomenon S/P cholecystectomy S/P hysterectomy Sciatica Smoker Steatosis of liver Ulnar neuropathy Vitamin D3 deficiency Historical No qualifying data Procedure/Surgical History Colonoscopy (10/22/2023), Esophagogastroduode noscopy (10/22/2023), Cardiac catheter (2005), MANDI BSO - Total abdominal hysterectomy and bilateral salpingo-oophorecto my (01/15/2004), Arthroscopy, History of lumbar spine surgery, Tonsillectomy and adenoidectomy. Medications Coreg 12.5 mg Tab, 12.5 mg= 1 tab(s), Oral, BID Eliquis 5 mg oral tablet, 5 mg= 1 tab(s), Oral, BID losartan 100 mg Tab, 100 mg= 1 tab(s), Oral, Daily metformin 500 mg Tab, See Instructions Nurtec ODT 75 mg oral tablet, disintegrating, 75 mg= 1 tab(s), SubLingual, Once omeprazole 20 mg Cap-DR, 20 mg= 1 cap(s), Oral, Daily Ozempic (1 mg dose) 4 mg/3 mL subcutaneous solution, See Instructions, 3 refills Topamax 50 mg Tab, 50 mg= 1 tab(s), Oral, BID, Not taking Allergies Decadron (Unknown) predniSONE (Unknown) penicillin (Unknown) Social History Tobacco Former smoker, quit more than 30 days ago Tobacco Use:. Never Smokeless Tobacco Use:. Cigarettes, Vaping, 11/27/2023 Former smoker, quit more than 30 days ago Tobacco Use:., 11/14/2023 Family History Patient was adopted Diabetes mellitus type 1: Father. Primary malignant neoplasm of female breast: Mother. [facility] Comment on above: Result Comment: Elec tronically Signed By: Freeman AIKEN, Melissa Mary\.br\Date and Time Signed: 11/27/23 09:49 EDT Patient Educationon 11-27-19 Patient Education Cardiovascular Hypertension, Adult High blood pressure (hypertension) is when the force of blood pumping through the arteries is too strong. The arteries are the blood vessels that carry blood from the heart throughout the body. Hypertension forces the heart to work harder to pump blood and may cause arteries to become narrow or stiff. Untreated or uncontrolled hypertension can lead to a heart attack, heart failure, a stroke, kidney disease, and other problems. A blood pressure reading consists of a higher number over a lower number. Ideally, your blood pressure should be below 120/80. The first ( top ) number is called the systolic pressure. It is a measure of the pressure in your arteries as your heart beats. The second ( bottom ) number is called the diastolic pressure. It is a measure of the pressure in your arteries as the heart relaxes. What are the causes? The exact cause of this condition is not known. There are some conditions that result in high blood pressure. What increases the risk? Certain factors may make you more likely to develop high blood pressure. Some of these risk factors are under your control, including: ? Smoking. ? Not getting enough exercise or physical activity. ? Being overweight. ? Having too much fat, sugar, calories, or salt (sodium) in your diet. ? Drinking too much alcohol. Other risk factors include: ? Having a personal history of heart disease, diabetes, high cholesterol, or kidney disease. ? Stress. ? Having a family history of high blood pressure and high cholesterol. ? Having obstructive sleep apnea. ? Age. The risk increases with age. What are the signs or symptoms? High blood pressure may not cause symptoms. Very high blood pressure (hypertensive crisis) may cause: ? Headache. ? Fast or irregular heartbeats (palpitations). ? Shortness of breath. ? Nosebleed. ? Nausea and vomiting. ? Vision changes. ? Severe chest pain, dizziness, and seizures. How is this diagnosed? This condition is diagnosed by measuring your blood pressure while you are seated, with your arm resting on a flat surface, your legs uncrossed, and your feet flat on the floor. The cuff of the blood pressure monitor will be placed directly against the skin of your upper arm at the level of your heart. Blood pressure should be measured at least twice using the same arm. Certain conditions can cause a difference in blood pressure between your right and left arms. If you have a high blood pressure reading during one visit or you have normal blood pressure with other risk factors, you may be asked to: ? Return on a different day to have your blood pressure checked again. ? Monitor your blood pressure at home for 1 week or longer. If you are diagnosed with hypertension, you may have other blood or imaging tests to help your health care provider understand your overall risk for other conditions. How is this treated? This condition is treated by making healthy lifestyle changes, such as eating healthy foods, exercising more, and reducing your alcohol intake. You may be referred for counseling on a healthy diet and physical activity. Your health care provider may prescribe medicine if lifestyle changes are not enough to get your blood pressure under control and if: ? Your systolic blood pressure is above 130. ? Your diastolic blood pressure is above 80. Your personal target blood pressure may vary depending on your medical conditions, your age, and other factors. Follow these instructions at home: Eating and drinking ? Eat a diet that is high in fiber and potassium, and low in sodium, added sugar, and fat. An example of this eating plan is called the DASH diet. DASH stands for Dietary Approaches to Stop Hypertension. To eat this way: ? Eat plenty of fresh fruits and vegetables. Try to fill one half of your plate at each meal with fruits and vegetables. ? Eat whole grains, such as whole-wheat pasta, brown rice, or whole-grain bread. Fill about one fourth of your plate with whole grains. ? Eat or drink low-fat dairy products, such as skim milk or low-fat yogurt. ? Avoid fatty cuts of meat, processed or cured meats, and poultry with skin. Fill about one fourth of your plate with lean proteins, such as fish, chicken without skin, beans, eggs, or tofu. ? Avoid pre-made and processed foods. These tend to be higher in sodium, added sugar, and fat. ? Reduce your daily sodium intake. Many people with hypertension should eat less than 1,500 mg of sodium a day. ? Do not drink alcohol if: ? Your health care provider tells you not to drink. ? You are , may be , or are planning to become . ? If you drink alcohol: ? Limit how much you have to: ? 0?1 drink a day for women. ? 0?2 drinks a day for men. ? Know how much alcohol is in your drink. In the [place] one drink equals one 12 oz bottle of beer (355 mL), one 5 oz glass of wine (148 mL), or one 1? oz glass (more content not included)... Normal [facility] RAD - CT Reporton 11-15-2023 RAD - CT Report [id number] [id number] Normal [facility] Ambulatory Visit Summaryon 0 11-14-2023 Ambulatory Visit Summary JOVANA XIE :1970 Visit Date:11/14/2023 Ambulatory Visit Instructions Your Diagnosis Chronic GERD Constipation Colon polyp S/P hysterectomy S/P cholecystectomy Obesity due to excess calories Hiatal hernia Your Care Team Attending Physician - Steffanie AIKEN, Navdeep Rodríguez Primary Care Physician - Freeman AIKEN, Melissa Mary This Is Your Medications List Contact prescribing physician if questions or concerns apixaban (Eliquis 5 mg oral tablet) carvedilol (Coreg 12.5 mg Tab) losartan (losartan 100 mg Tab) metformin (metformin 500 mg Tab) omeprazole (omeprazole 20 mg Aidan-) rimegepant (Nurtec ODT 75 mg oral tablet, disintegrating) semaglutide (Ozempic (1 mg dose) 4 mg/3 mL subcutaneous solution) topiramate (Topamax 50 mg Tab) Procedures Performed Colonoscopy (10/22/2023), Esophagogastroduode noscopy (10/22/2023), Cardiac catheter (2005), MANDI BSO - Total abdominal hysterectomy and bilateral salpingo-oophorecto my (01/15/2004), Arthroscopy, History of lumbar spine surgery, Tonsillectomy and adenoidectomy. Discharge Vitals Heart Rate (Peripheral) 71 Respiratory Rate 16 Blood Pressure 122/83 Height 162 cm Height 64 in Weight 120 kg Weight 264 lb BMI 45.72 What to do next Scheduled Follow-Up Appointments Sunday 9:15 AM EDT With: Melissa Erazo MD Where: [facility] [place] Normal [facility] Gastroenterology Office/Clin ic Noteon 11-14-2023 Gastroenterology Office/Clinic Note Chief Complaint follow up to EGD/Colon HPI Staff This is a 53 year old female who presents today for a follow up to EGD and Colonoscopy. Last office visit w/ Dr Valiente. History of Present Illness PT is asymptomatic constipation for years every other day - BMs pt pushes for BMs incomplete evacuation Pt tried miralax in the past hysterectomy in the past on omeprazole for GERD. started in second grade Assessment/Plan 1. Screen for colon cancer (Z12.11: Encounter for screening for malignant neoplasm of colon) 2. Morbid obesity (E66.01: Morbid (severe) obesity due to excess calories) 3. Chronic GERD (K21.9: Gastro-esophageal reflux disease without esophagitis) 4. Constipation, outlet dysfunction (K59.02: Outlet dysfunction constipation) 5. Pelvic floor dysfunction (M62.89: Other specified disorders of muscle) 6. S/P cholecystectomy (Z90.49: Acquired absence of other specified parts of digestive tract) 7. S/P hysterectomy (Z90.710: Acquired absence of both cervix and uterus) Apnea, not elsewhere classified (R06.81: Apnea, not elsewhere classified) Schedule upper endoscopy to evaluate GERD Schedule colonoscopy to screen for colon cancer Patient will benefit from losing weight and eating healthy Advised to use squatty potty and massage the colon Continue MiraLAX as needed Advised to use prunes and kiwi fruits EGD/Colon w/ Dr Valiente 10/22/23 Impression and Plan gastropathy Nonobstructing Schatzki's ring Hiatal hernia Impression and Plan Sigmoid colon polyp Internal and external hemorrhoids Recommendations: Repeat colonoscopy:: In 5 years. Final Diagnosis (Verified) A: STOMACH, BIOPSY: - Gastric antral and fundic gland mucosa with mild chronic nonspecific gastritis - Negative for intestinal metaplasia or dysplasia - Negative for H. pylori (immunohistochemica l staining) Note: Appropriate positive controls reviewed for H. pylori immunostaining. B: POLYP, SIGMOID COLON, POLYPECTOMY: - Tubular adenoma History of Present Illness I have reviewed HPI staff note, most recent labs and imaging, more than 30 minutes spent reviewing the chart, during encounter, placing orders and counseling the patient. Pt eats spices every now and then constipation is doing better Review of Systems All systems reviewed, negative except as mentioned above Physical Exam Vitals & Measurements HR: 71(Peripheral) RR: 16 BP: 122/83 HT: 64 in HT: 162 cm WT: 120 kg WT: 264 lb BMI: 45.72 General: alert, no acute distress HEENT: atraumatic normocephalic Extremities: no deformity, no trauma Assessment/Plan 1. Chronic GERD (K21.9: Gastro-esophageal reflux disease without esophagitis) 2. Constipation (K59.00: Constipation, unspecified) 3. Colon polyp (K63.5: Polyp of colon) 4. S/P hysterectomy (Z90.710: Acquired absence of both cervix and uterus) 5. S/P cholecystectomy (Z90.49: Acquired absence of other specified parts of digestive tract) 6. Obesity due to excess calories (E66.09: Other obesity due to excess calories) 7. Hiatal hernia (K44.9: Diaphragmatic hernia without obstruction or gangrene) cont PPI cont ozempic. advised to continue to lose weight and eat healthy Patient should lose 10% of current weight if possible Continue as needed MiraLAX/prunes Repeat colonoscopy after 5 years Follow-up No qualifying data available Problem List/Past Medical History Ongoing Afib Asthma Body mass index (BMI) of 45.0-49.9 in adult Chronic GERD Colon cancer screening Colon polyp Constipation, outlet dysfunction Controlled type 2 diabetes mellitus without complication, without long-term current use of insulin Derangement of knee Diabetes mellitus type II, controlled Extrinsic asthma with status asthmaticus Headache Hemorrhoids Hiatal hernia HTN (hypertension) Metabolic syndrome X Morbid obesity Obesity due to excess calories Osteoarthritis Pain in thumb joint with movement of right hand Pelvic floor dysfunction Psoriasis Raynaud's phenomenon without gangrene Raynauds phenomenon S/P cholecystectomy S/P hysterectomy Sciatica Smoker Steatosis of liver Ulnar neuropathy Vitamin D3 deficiency Historical No qualifying data Procedure/Surgical History Colonoscopy (10/22/2023), Esophagogastroduode noscopy (10/22/2023), Cardiac catheter (2005), MANDI BSO - Total abdominal hysterectomy and bilateral salpingo-oophorecto my (01/15/2004), Arthroscopy, History of lumbar spine surgery, Tonsillectomy and adenoidectomy. Medications Coreg 12.5 mg Tab, 12.5 mg= 1 tab(s), Oral, BID Eliquis 5 mg oral tablet, 5 mg= 1 tab(s), Oral, BID losartan 100 mg Tab, 100 mg= 1 tab(s), Oral, Daily metformin 500 mg Tab, See Instructions Nurtec ODT 75 mg oral tablet, disintegrating, 75 mg= 1 tab(s), SubLingual, Once omeprazole 20 mg Cap-DR, 20 mg= 1 cap(s), Oral, Daily Ozempic (1 mg dose) 4 mg/3 mL subcutaneous solution, See Instructions, 3 refills Topamax 50 mg Tab, 50 mg (more content not included)... Normal [facility] Comment on above: Result Comment: Elec tronically Signed By: Steffanie AIKEN, Navdeep Rodríguez\.br\Date and Time Signed: 11/14/23 12:56 EDT Consultation Noteon 11-01-19 Consultation Note [id number] 8#1.00TIFF Normal [facility] Medicine Office/Clini c Noteon 10-30-2023 Family Medicine Office/Clinic Note HPI Staff Jovana is a 53 year old female presenting for one month follow up DM, HTN JIMMIE increased losartan and added HCTZ Do you have any of the following symptoms? Foot Exam: none Eye Exam: coming up Last A1C: Hgb A1C %: 5.2 % (09/25/23 13:45:00) Statin: Patient is here for follow up on hypertension. How often are you checking your blood pressure? randomly What are your average readings? up and down Yearly BMP: 09/25/23 questions/concerns: saw heating and ventilating tender and wearing a heart monitor. she was called yesterday by heating and ventilating tender [facility] and he put her on a blood thinner eliquis 5mg bid History of Present Illness Here for follow up. - BS have been great. - No concerns Bps are great. Found to have Afib on her holter. Ed called in already. - Needs rate control meds. Review of Systems PHQ Score Initial Depression Screen Score: 0 SCORE Physical Exam Vitals & Measurements T: 36.1 ?C(Oral) HR: 76(Peripheral) RR: 16 BP: 130/72 SpO2: 96% HT: 64 in HT: 162 cm WT: 122.8 kg WT: 270.16 lb BMI: 46.79 General: alert, no acute distress ENMT: oral mucosa moist, Cardiovascular: irregularly-irregul ar rate and rhythm, normal peripheral perfusion Respiratory: Lungs CTA, respirations non labored Extremities: no deformity, no trauma Neurological: oriented x 4, LOC appropriate for age, CN II-XII intact, motor strength equal & normal bilaterally, speech normal Abdomen: Soft, Nontender, Non-distended, + BS Assessment/Plan 1. Controlled type 2 diabetes mellitus without complication, without long-term current use of insulin (E11.9: Type 2 diabetes mellitus without complications) - At goal. - Continue on meds - Follow up in 6 months. 2. HTN (hypertension) (I10: Essential (primary) hypertension) - Will D/C HCTZ and add BB - Follow up with Cardiology. - Will see back in 1 month. 3. Afib (I48.91: Unspecified atrial fibrillation) - As above - Please supervisor opening and picking the elquis. 4. Colon polyp (K63.5: Polyp of colon) - Per Patient. - Following with GI. Orders: metoprolol, 25 mg = 1 tab(s), Oral, Daily, # 90 tab(s), Refills(s) 0, Pharmacy: [facility]/pharmacy #[id number], 162, cm, 10/30/23 9:51:00 EDT, Height/Length Dosing, 122.8, kg, 10/30/23 9:51:00 EDT, Weight Dosing Follow-up No qualifying data available Problem List/Past Medical History Ongoing Afib Asthma Body mass index (BMI) of 45.0-49.9 in adult Chronic GERD Colon cancer screening Colon polyp Constipation, outlet dysfunction Controlled type 2 diabetes mellitus without complication, without long-term current use of insulin Derangement of knee Diabetes mellitus type II, controlled Extrinsic asthma with status asthmaticus Headache Hemorrhoids HTN (hypertension) Metabolic syndrome X Morbid obesity Osteoarthritis Pain in thumb joint with movement of right hand Pelvic floor dysfunction Psoriasis Raynaud's phenomenon without gangrene Raynauds phenomenon S/P cholecystectomy S/P hysterectomy Sciatica Smoker Steatosis of liver Ulnar neuropathy Vitamin D3 deficiency Historical No qualifying data Procedure/Surgical History Colonoscopy (10/22/2023), Esophagogastroduode noscopy (10/22/2023), Cardiac catheter (2005), MANDI BSO - Total abdominal hysterectomy and bilateral salpingo-oophorecto my (01/15/2004), Arthroscopy, History of lumbar spine surgery, Tonsillectomy and adenoidectomy. Medications Eliquis 5 mg oral tablet, 5 mg= 1 tab(s), Oral, BID losartan 100 mg Tab, 100 mg= 1 tab(s), Oral, Daily metformin 500 mg Tab, See Instructions metoprolol 25 mg ER Tab, 25 mg= 1 tab(s), Oral, Daily Nurtec ODT 75 mg oral tablet, disintegrating, 75 mg= 1 tab(s), SubLingual, Once omeprazole 20 mg Cap-DR, 20 mg= 1 cap(s), Oral, Daily Ozempic (1 mg dose) 4 mg/3 mL subcutaneous solution, See Instructions, 3 refills Topamax 50 mg Tab, 50 mg= 1 tab(s), Oral, BID Allergies Decadron (Unknown) predniSONE (Unknown) penicillin (Unknown) Social History Tobacco Former smoker, quit more than 30 days ago Tobacco Use:. Never Smokeless Tobacco Use:. Cigarettes, Vaping, 10/30/2023 Family History Patient was adopted Diabetes mellitus type 1: Father. Primary malignant neoplasm of female breast: Mother. [facility] Comment on above: Result Comment: Elec tronically Signed By: Freeman AIKEN, Melissa Carson\Date and Time Signed: 10/30/23 10:17 EDT IntraOperative Documentson 0 10-26-2023 IntraOperative Documents [id number]#1.00TIFF [facility] Postoperative Documentson Postoperative Documents [id number]#1.00TIFF [facility] Consenton 10-23-2023 Consent [id number] 67#1.00TIFF [facility] Discharge Instructionson Discharge Instructions [id number] 80#1.00TIFF [facility] Main OR Intraoperative Recor don 10-23-2023 Main OR Intraoperative Record IntraOp Document Type FT Summary Primary Physician: Navdeep Valiente MD Finalized Date/Time: 10/23/23 11:51:00 Pt. Name: JOVANA XIE/Sex: 1970 Female Med Rec #: [id number] Physician: Navdeep Valiente MD Financial #: [id number] Pt. Type: O Room/Bed: / Admit/Disch: 10/22/23 09:21:35 - 10/22/23 23:59:59 Institution: Case Times FT Entry 1 Patient Times In Room 10/22/23 10:23:00 Out Room 10/22/23 10:51:00 Procedure Times Start 10/22/23 10:30:00 Stop 10/22/23 10:47:00 Anesthesia Times Start 10/22/23 10:23:00 Stop 10/22/23 10:51:00 Time at [place] 10/22/23 10:37:00 Last Modified By: Kannan SWAIN, Maki 10/22/23 10:49:12 General Comments: 1033-EGD completed/AW RN 1035-Colonoscopy started/AW RN 10/23/23 Chart opened for charge review per Rito Aldana RN. [place] Case Attendance FT Entry 1 Entry 2 Entry 3 Case Attendee Kylee CEE, Pa Oliveira, Camille Clemons CAR FERRIER, Radha Abebe Role Performed Anesthesiologist Scrub - Primary Staff - Other Digital Assistant Time In 10/22/23 10:23:00 10/22/23 10:23:00 10/22/23 10:23:00 Time Out 10/22/23 10:51:00 10/22/23 10:51:00 10/22/23 10:51:00 Procedure EGD AND COLONOSCOPY(.) EGD AND COLONOSCOPY(.) EGD AND COLONOSCOPY(.) Comments supervising help in room Last Modified By: Kannan RN, Maki Brunner RN, Maki Brunner RN, Maki 10/22/23 10:49:13 10/22/23 10:49:13 10/22/23 10:49:13 Entry 4 Entry 5 Case Attendee Steffanie AIKEN, Navdeep Brunner RN, Maki Role Performed Surgeon - Primary Hardware Assembler - Primary Time In 10/22/23 10:23:00 10/22/23 10:23:00 Time Out 10/22/23 10:51:00 10/22/23 10:51:00 Procedure EGD AND COLONOSCOPY(.) EGD AND COLONOSCOPY(.) Comments Last Modified By: Kannan RN, Maki Brunner RN, Maki 10/22/23 10:49:13 10/22/23 10:49:13 Perioperative Protocols FT Pre-Care Text: Implements protective measures prior to operative or invasive procedure, confirms identity before the operative or invasive procedure, verifies operative procedure, surgical site, and laterality Entry 1 Procedure(s) EGD AND COLONOSCOPY(.) Patient Identity Birthday, ID Band Verified (select at Check, Patient least 2): Participation Consents / H and P Anesthesia Consent, Operative Site N/A Verified HandP, Surgery/Procedure Marking Verified Consent Surgical Site No Laterality Verified n/a Verified Procedure Verified Yes Correct Patient Yes Position Verified Availability Equipment, Medication Prep Dry n/a Verified (If Applicable) PreOp Antibiotic No Time Out Pa Sotelo Given Participants Roxanne Wilkinson Micala E, Deonte CAR FERRIER, Steffanie Egan MD, Navdeep Rodríguez, Maki Brunner RN Time Out Complete 10/22/23 10:27:00 Outcomes Met? Yes Last Modified By: Maki Brunnre RN 10/22/23 10:28:39 Post-Care Text: The patient is free from signs and symptoms of injury caused by extraneous objects Allergy Information FT Pre-Care Text: Verifies allergies Entry 1 Allergies Reviewed? Yes Allergies Reviewed Self/Patient With Outcomes Met? Yes Last Modified By: Maki Brunner RN 10/22/23 10:28:48 Post-Care Text: The patient received appropriate medication(s) safely administered during the perioperative period Surgical Procedures FT Entry 1 Procedure Description Procedure EGD AND COLONOSCOPY Modifiers . Surgeon Description EGD with gastric biopsy. Colonoscopy with sigmoid colon polypectomy Primary Procedure Yes Primary Surgeon Steffanie AIKEN, Navdeep Rodríguez Start 10/22/23 10:30:00 Stop 10/22/23 10:47:00 Anesthesia Type General Surgical Service Gastroenterology Wound Class 2 - Clean-Contaminated Last Modified By: Maki Brunner RN 10/22/23 10:48:14 General Case Data FT Pre-Care Text: Classifies surgical wound, implements aseptic technique, initiates traffic control Entry 1 Case Information OR ENDO 1 FT Case Level Level 2 Wound Class 2 - Clean-Contaminated Specialty Gastroenterology ASA Class 3 Preop Diagnosis SCREENING, GERD Postop Same As Preop No Postop Diagnosis EGD-hiatal hernia, Outcomes Met? Yes gastropathy, schatzki ring. Colonoscopy-sigmoid colon polyp, diverticulosis and internal hemorrhoids Last Modified By: Maki Brunner RN 10/22/23 10:49:03 Post-Care Text: The patient is free from signs and symptoms of infection Skin Assessment (Pre Procedure) FT Pre-Care Text: Implements protective measures to prevent skin/ tissue injury due to thermal or mechanical sources Evaluates for signs and symptoms of physical injury to skin and tissue Entry 1 Skin Integrity Intact, [place], Warm, and Skin Abnormality No Dry Outcomes Met? Yes Last Modified By: Maki Brunner RN 10/22/23 10:29:47 Post-Care Text: The patient is free from signs and symptoms of injury caused by extraneous objects Patient Positioning FT Pre-Care Text: Identifies physical alterations that require additional precautions for procedure-specific (more content not included)... [facility] Consent for Treatmenton 10-03 Consent for Treatment [id number]#1.00TIFF [facility] Discharge Instructionson Discharge Instructions JOVANA XIE :1970 Visit Date:10/22/2023 Inpatient Discharge Instructions Your Care Team Admitting Physician - Navdeep Vlaiente MD Referring Physician - Navdeep Valiente MD Reason for Your Visit SCREENING, GERD Your Diagnosis Gastropathy Hiatal hernia Polyp of sigmoid colon Schatzki's ring Tests Performed Pathology Tissue Exam -- Results Pending -- Please visit your patient portal for your results or contact your primary care physician. This Is Your Medications List hydrochlorothiazide (hydrochlorothiazid e 25 mg Tab) losartan (losartan 100 mg Tab) metformin (metformin 500 mg Tab) montelukast (montelukast 10 mg Tab) omeprazole (omeprazole 20 mg Cap-DR) rimegepant (Nurtec ODT 75 mg oral tablet, disintegrating) semaglutide (Ozempic (1 mg dose) 4 mg/3 mL subcutaneous solution) topiramate (Topamax 50 mg Tab) Procedure History Cardiac catheter (2005), MANDI BSO - Total abdominal hysterectomy and bilateral salpingo-oophorecto my (01/15/2004), Arthroscopy, History of lumbar spine surgery, Tonsillectomy and adenoidectomy. Discharge Vitals Temperature (Temporal Artery) 36.9 ?C Heart Rate (Monitored) 66 Respiratory Rate 25 Blood Pressure 96/56 Height 162 cm Weight 121.6 kg What to do next Instructions From Your Doctor No qualifying data available. Previously Scheduled Follow-Up Appointments Sunday 9:45 AM EDT With: Freeman AIKEN, Melissa Mary Where: [facility] Comment on above: Result Comment: Elec tronically Signed By: Daniel SWAIN, Olvin.elijah\Date and Time Signed: 10/22/23 11:00 EDT Gurmeet 10-22-2023 Esophagogastroduod enoscopy Patient: JOVANA XIE Age: 53 years Sex: Female : 1970 Associated Diagnoses: None Author: Navdeep Valiente MD Pre-Procedure Procedure Date 10/22/2023 10:55:00 . Procedure Type: Esophagogastroduode noscopy with biopsy. Procedure provider Performed by Navdeep Valiente MD. Current history and physical Documented on chart. Informed Consent After discussing the rationale, risks and benefits, and alternatives to this procedure, the patient provided signed consent for the procedure. Pre-procedure diagnosis: anemia. Medications (Selected) Inpatient Medications Ordered Sodium Chloride 0.9% IV Ruth 1000 mL 1,000 mL: 1,000 mL, IV, 20 mL/hr, Routine, Start date 10/22/23 6:40:00 EDT, 50 hour(s), Total volume (mL): 1,000, 121.6 kg, 2.34, m2 Prescriptions Prescribed Ozempic (1 mg dose) 4 mg/3 mL subcutaneous solution: See Instructions, INJECT 1 MG SUBCUANEOUSLY WEEKLY, # 9 mL, Refills(s) 3, Pharmacy: [id number], 162, cm, 09/25/23 13:12:00 EDT, Height/Length Dosing, 121.7, kg, 09/25/23 13:12:00 EDT, Weight Dosing hydrochlorothiazide 25 mg Tab: 25 mg = 1 tab(s), Oral, Daily, # 90 tab(s), Refills(s) 0, Pharmacy: [id number], 162, cm, 09/25/23 13:12:00 EDT, Height/Length Dosing, 121.7, kg, 09/25/23 13:12:00 EDT, Weight Dosing losartan 100 mg Tab: 100 mg = 1 tab(s), Oral, Daily, # 90 tab(s), Refills(s) 0, Pharmacy: [id number], 162, cm, 09/25/23 13:12:00 EDT, Height/Length Dosing, 121.7, kg, 09/25/23 13:12:00 EDT, Weight Dosing metformin 500 mg Tab: See Instructions, TAKE 1 TABLET BY MOUTH EVERY DAY, # 90 tab(s), Refills(s) 3, Pharmacy: [id number], 162, cm, 09/25/22 11:02:00 EDT, Height/Length Dosing, 138.5, kg, 09/25/22 11:02:00 EDT, Weight Dosing Documented Medications Documented Nurtec ODT 75 mg oral tablet, disintegratin mg = 1 tab(s), SubLingual, Once, at onset of migraine, Refills(s) 0, Migraine headache Topamax 50 mg Tab: 50 mg = 1 tab(s), Oral, BID, Refills(s) 0, Migraine headache montelukast 10 mg Tab: 10 mg = 1 tab(s), Oral, Daily, Refills(s) 0, Shortness of breath or wheezing omeprazole 20 mg Cap-DR: 20 mg = 1 cap(s), Oral, Daily, Refills(s) 0, Control of stomach acid Anticoagulant/antip latelet None. ASA Classification: Class III. . Monitoring: See anesthesia record. . Procedure The procedure was performed in the hospital. See anesthesia record for sedation given during procedure. The patient was positioned starting in the left lateral decubitus position and with safety measures. Endoscope type used was a pediatric-size, introduced orally, advanced to the 2nd portion of the duodenum. No difficulty was encountered during the procedure. Views were excellent. The patient tolerated the procedure well. Findings 1. Normal esophagus. Z-line at 38 cm. 2 cm hiatal hernia. Nonobstructing Schatzki's ring in the lower esophagus. 2. Erythema in the antrum, mild patchy. Otherwise normal stomach. Biopsies of the stomach were taken to rule out H. pylori. 3. Normal duodenum. Images Procedure images: [id number]_hd_video_2023_ _[id number] jpg Rec1_hd_video_2023_ _[id number]. jpg Rec1_hd_video_2023_ _[id number] Rec_hd_video__[id number]. jpg Rec1_hd_video_2023_ _[id number]. jpg Rec1_hd_video_2023_ _[id number]. jpg . Post-Procedure Complications: none. Estimated blood loss: minimal. Specimens: sent to pathology. Devices/ implants: none left in place. Impression and Plan gastropathy Nonobstructing Schatzki's ring Hiatal hernia Recommendations: -Resume previous diet -Resume home medications -Avoid NSAIDs -Await pathology results, follow in GI clinic in 1-2 after discharge [facility] Comment on above: Other Comment: Latha sim Attachment - attachment storage system not supported [id number] Can be viewed in source systemMissing Attachment - attachment storage system not supported [id number] Can be viewed in source systemMissing Attachment - attachment storage system not supported [id number] Can be viewed in source systemMissing Attachment - attachment storage system not supported [id number] Can be viewed in source systemMissing Attachment - attachment storage system not supported [id number] Can be viewed in source systemMissing Attachment - attachment storage system not supported [id number] Can be viewed in source system Colonoscopy Procedure Report Patient: JOVANA XIE Age: 53 years Sex: Female : 1970 Associated Diagnoses: None Author: Navdeep Valiente MD Pre-Procedure Procedure Date 10/22/2023 10:52:00 . Procedure Type: Colonoscopy with removal of tumor(s), polyp(s), or other lesion(s) by cold snare technique. Procedure provider Performed by Navdeep Valiente MD. Current history and physical Documented on chart. Cardiac catheter ([id number]) in 2006 at 36 Years. [facility] - Total abdominal hysterectomy and bilateral salpingo-oophorecto my ([id number]) on 01/15/2004 at 33 Years. Tonsillectomy and adenoidectomy ([id number]). Arthroscopy ([id number]). Comments: 09/01/2022 10:00 Daija Mendosa LPN left and right, separate times History of lumbar spine surgery ([id number]). Comments: 09/01/2022 10:01 Daija Mendosa LPN L4-L5 disc December 2015. Past Medical History No active or resolved past medical history items have been selected or recorded.. Family History Patient was adopted. Diabetes mellitus type 1 Father Primary malignant neoplasm of female breast Mother . Procedure History Cardiac catheter ([id number]) in 2005 at 36 Years. [facility] - Total abdominal hysterectomy and bilateral salpingo-oophorecto my ([id number]) on 01/15/2004 at 33 Years. Tonsillectomy and adenoidectomy ([id number]). Arthroscopy ([id number]). Comments: 09/01/2022 10:00 Daija Mendosa LPN left and right, separate times History of lumbar spine surgery ([id number]). Comments: 09/01/2022 10:01 Daija Mendosa LPN L4-L5 disc December 2015. Colorectal neoplasm risk assessment Average risk. Informed Consent After discussing the rationale, risks and benefits, and alternatives to this procedure, the patient provided signed consent for the procedure. Pre-procedure diagnosis: Screening. Medications (Selected) Inpatient Medications Ordered Sodium Chloride 0.9% IV Ruth 1000 mL 1,000 mL: 1,000 mL, IV, 20 mL/hr, Routine, Start date 10/22/23 6:40:00 EDT, 50 hour(s), Total volume (mL): 1,000, 121.6 kg, 2.34, m2 Prescriptions Prescribed Ozempic (1 mg dose) 4 mg/3 mL subcutaneous solution: See Instructions, INJECT 1 MG SUBCUANEOUSLY WEEKLY, # 9 mL, Refills(s) 3, Pharmacy: [facility], 162, cm, 09/25/23 13:12:00 EDT, Height/Length Dosing, 121.7, kg, 09/25/23 13:12:00 EDT, Weight Dosing hydrochlorothiazide 25 mg Tab: 25 mg = 1 tab(s), Oral, Daily, # 90 tab(s), Refills(s) 0, Pharmacy: [facility], 162, cm, 09/25/23 13:12:00 EDT, Height/Length Dosing, 121.7, kg, 09/25/23 13:12:00 EDT, Weight Dosing losartan 100 mg Tab: 100 mg = 1 tab(s), Oral, Daily, # 90 tab(s), Refills(s) 0, Pharmacy: [facility], 162, cm, 09/25/23 13:12:00 EDT, Height/Length Dosing, 121.7, kg, 09/25/23 13:12:00 EDT, Weight Dosing metformin 500 mg Tab: See Instructions, TAKE 1 TABLET BY MOUTH EVERY DAY, # 90 tab(s), Refills(s) 3, Pharmacy: [facility] [id number], 162, cm, 09/25/22 11:02:00 EDT, Height/Length Dosing, 138.5, kg, 09/25/22 11:02:00 EDT, Weight Dosing Documented Medications Documented Nurtec ODT 75 mg oral tablet, disintegratin mg = 1 tab(s), SubLingual, Once, at onset of migraine, Refills(s) 0, Migraine headache Topamax 50 mg Tab: 50 mg = 1 tab(s), Oral, BID, Refills(s) 0, Migraine headache montelukast 10 mg Tab: 10 mg = 1 tab(s), Oral, Daily, Refills(s) 0, Shortness of breath or wheezing omeprazole 20 mg Cap-DR: 20 mg = 1 cap(s), Oral, Daily, Refills(s) 0, Control of stomach acid ASA Classification: Class III. . Monitoring: See anesthesia record. . Procedure The procedure was performed in the hospital. See anesthesia record for sedation given during procedure. The patient was positioned starting in the left lateral decubitus position. Endoscope type used was a pediatric-size. The endoscope was lubricated then introduced through the anus. The scope was advanced to the cecum. No difficulties encountered during the procedure. The bowel preparation quality was good and was adequate (see polyps greater than or equal to 6 millimeters). The patient tolerated the procedure well. Time to Cecum: min Withdrawal time min Last colonoscopy: Findings 1. Large internal and external hemorrhoids 2. Five mm sessile polyp seen in the sigmoid resected with cold snare completely Images Procedure images: Rec1_hd_video_2023_ _[id number]. jpg Rec1_hd_video_2023_ _[id number]. jpg Rec1_hd_video_2023_ _[id number]. jpg Rec1_hd_video_2023_ _[id number]. jpg Rec1_hd_video_2023_ _[id number]. jpg Rec1_hd_video_2023_ _[id number]. jpg Rec1_hd_video_2023_ _[id number]. jpg Rec1_hd_video_20 (more content not included)... [facility] Comment on above: Other Comment: Latha sim Attachment - attachment storage system not supported [id number] Can be [facility] Attachment - attachment storage system not supported [id number] Can be viewed [facility] Attachment - attachment storage system not supported [id number] Can be viewed [facility] Attachment - attachment storage system not supported [id number] Can be viewed [facility] Attachment - attachment storage system not supported [id number] Can be viewed [facility] Attachment - attachment storage system not supported [id number] Can be viewed [facility] Attachment - attachment storage system not supported [id number] Can be viewed [facility] Attachment - attachment storage system not supported [id number] Can be viewed in source system Esophagogastroduod enoscopy Patient: JOVANA XIE Age: 53 years Sex: Female : 1970 Associated Diagnoses: None Author: Navdeep Valiente MD Pre-Procedure Procedure Date 10/22/2023 10:52:00 . Procedure Type: Colonoscopy with removal of tumor(s), polyp(s), or other lesion(s) by cold snare technique. Procedure provider Performed by Navdeep Valiente MD. Current history and physical Documented on chart. Cardiac catheter ([id number]) in 2005 at 36 Years. [facility] - Total abdominal hysterectomy and bilateral salpingo-oophorecto my ([id number]) on 01/15/2004 at 33 Years. Tonsillectomy and adenoidectomy ([id number]). Arthroscopy ([id number]). Comments: 09/01/2022 10:00 Daija Mendosa LPN left and right, separate times History of lumbar spine surgery ([id number]). Comments: 09/01/2022 10:01 Daija Mendosa LPN L4-L5 disc December 2015. Past Medical History No active or resolved past medical history items have been selected or recorded.. Family History Patient was adopted. Diabetes mellitus type 1 Father Primary malignant neoplasm of female breast Mother . Procedure History Cardiac catheter ([id number]) in 2005 at 36 Years. [facility] - Total abdominal hysterectomy and bilateral salpingo-oophorecto my ([id number]) on 01/15/2004 at 33 Years. Tonsillectomy and adenoidectomy ([id number]). Arthroscopy ([id number]). Comments: 09/01/2022 10:00 Daija Mendosa LPN left and right, separate times History of lumbar spine surgery ([id number]). Comments: 09/01/2022 10:01 Daija Mendosa LPN L4-L5 disc December 2015. Colorectal neoplasm risk assessment Average risk. Informed Consent After discussing the rationale, risks and benefits, and alternatives to this procedure, the patient provided signed consent for the procedure. Pre-procedure diagnosis: Screening. Medications (Selected) Inpatient Medications Ordered Sodium Chloride 0.9% IV Ruth 1000 mL 1,000 mL: 1,000 mL, IV, 20 mL/hr, Routine, Start date 10/22/23 6:40:00 EDT, 50 hour(s), Total volume (mL): 1,000, 121.6 kg, 2.34, m2 Prescriptions Prescribed Ozempic (1 mg dose) 4 mg/3 mL subcutaneous solution: See Instructions, INJECT 1 MG SUBCUANEOUSLY WEEKLY, # 9 mL, Refills(s) 3, Pharmacy: [facility], 162, cm, 09/25/23 13:12:00 EDT, Height/Length Dosing, 121.7, kg, 09/25/23 13:12:00 EDT, Weight Dosing hydrochlorothiazide 25 mg Tab: 25 mg = 1 tab(s), Oral, Daily, # 90 tab(s), Refills(s) 0, Pharmacy: [facility], 162, cm, 09/25/23 13:12:00 EDT, Height/Length Dosing, 121.7, kg, 09/25/23 13:12:00 EDT, Weight Dosing losartan 100 mg Tab: 100 mg = 1 tab(s), Oral, Daily, # 90 tab(s), Refills(s) 0, Pharmacy: [facility], 162, cm, 09/25/23 13:12:00 EDT, Height/Length Dosing, 121.7, kg, 09/25/23 13:12:00 EDT, Weight Dosing metformin 500 mg Tab: See Instructions, TAKE 1 TABLET BY MOUTH EVERY DAY, # 90 tab(s), Refills(s) 3, Pharmacy: [facility] [id number], 162, cm, 09/25/22 11:02:00 EDT, Height/Length Dosing, 138.5, kg, 09/25/22 11:02:00 EDT, Weight Dosing Documented Medications Documented Nurtec ODT 75 mg oral tablet, disintegratin mg = 1 tab(s), SubLingual, Once, at onset of migraine, Refills(s) 0, Migraine headache Topamax 50 mg Tab: 50 mg = 1 tab(s), Oral, BID, Refills(s) 0, Migraine headache montelukast 10 mg Tab: 10 mg = 1 tab(s), Oral, Daily, Refills(s) 0, Shortness of breath or wheezing omeprazole 20 mg Cap-DR: 20 mg = 1 cap(s), Oral, Daily, Refills(s) 0, Control of stomach acid ASA Classification: Class III. . Monitoring: See anesthesia record. . Procedure The procedure was performed in the hospital. See anesthesia record for sedation given during procedure. The patient was positioned starting in the left lateral decubitus position. Endoscope type used was a pediatric-size. The endoscope was lubricated then introduced through the anus. The scope was advanced to the cecum. No difficulties encountered during the procedure. The bowel preparation quality was good and was adequate (see polyps greater than or equal to 6 millimeters). The patient tolerated the procedure well. Time to Cecum: min Withdrawal time min Last colonoscopy: Findings 1. Large internal and external hemorrhoids 2. Five mm sessile polyp seen in the sigmoid resected with cold snare completely Images Procedure images: Rec1_hd_video_2023_ _[id number]. jpg Rec1_hd_video_2023_ _[id number]. jpg Rec1_hd_video_2023_ _[id number]. jpg Rec1_hd_video_2023_ _[id number]. jpg Rec1_hd_video_2023_ _[id number]. jpg Rec1_hd_video_2023_ _[id number]. jpg Rec1_hd_video_2023_ _[id number]. jpg Rec1_hd_video_20 (more content not included)... [facility] Comment on above: Other Comment: Latha sim Attachment - attachment storage system not supported [id number] Can be viewed in source systemMissing Attachment - attachment storage system not supported [id number] Can be viewed in source systemMissing Attachment - attachment storage system not supported [id number] Can be viewed in source systemMissing Attachment - attachment storage system not supported [id number] Can be viewed in source systemMissing Attachment - attachment storage system not supported [id number] Can be viewed in source systemMissing Attachment - attachment storage system not supported [id number] Can be viewed in source systemMissing Attachment - attachment storage system not supported [id number] Can be viewed in source systemMissing Attachment - attachment storage system not supported [id number] Can be viewed in source system Main OR PACU I Recordon 05 Main OR PACU I Record PACU Phase I Document Type FT Summary Primary Physician: Navdeep Valiente MD Finalized Date/Time: 10/22/23 12:06:11 Pt. Name: ANNE-MARIE JOVANA Dorcas/Sex: 1970 Female Med Rec #: [id number] Physician: Navdeep Valiente MD Financial #: [id number] Pt. Type: O Room/Bed: / Admit/Disch: 10/22/23 09:21:35 - Institution: Case Times PACU I FT Pre-Care Text: Identifies barriers to communication and implements measures to provide psychological support Develops individualized plan of care, and ensures continuity of care Maintains patient's dignity and privacy, and maintains patient confidentiality Identifies and reports philosophical, cultural, and spiritual beliefs and values Identifies individual values and wishes concerning care Implements aseptic technique, and administers prescribed antibiotic therapy and immunizing agents as ordered Evaluates postoperative tissue perfusion Implements thermoregulation measures, and monitors body temperature Evaluates postoperative respiratory status Evaluates postoperative cardiac status Evaluates postoperative neurological status Assesses pain control, collaborated in initiating patient-controlled analgesia and implements alternative methods of pain control Verifies allergies, administers prescribed medications and solutions, evaluates response to medications Entry 1 In PACU I 10/22/23 10:52:00 Discharge from PACU 10/22/23 11:35:00 I Outcomes Met? Yes Last Modified By: Lorri Sanchez RN 10/22/23 12:05:52 Post-Care Text: The patient demonstrates knowledge of the expected response to the operative or invasive procedure The patient's care is consistent with the individualized perioperative plan of care The patient's right to privacy is maintained The patient's value system, lifestyle, ethnicity, and culture are considered, respected, and incorporated into the perioperative plan of care The patient participates in decisions affecting his or her perioperative plan of care The patient is free from signs and symptoms of infection The patient has wound/tissue perfusion consistent with or improved from baseline levels established preoperatively The patient is at or returning to normothermia at the conclusion of the immediate postoperative period The patient's respiratory function is consistent with or improved from baseline levels established preoperatively The patient's cardiovascular status is consistent with or improved from baseline levels established preoperatively The patient's cardiovascular status is consistent with or improved from baseline levels established preoperatively The patient demonstrates and/or reports adequate pain control throughout the perioperative period The patient received appropriate medication(s), safely administered during the perioperative period Acuity Level PACU I FT Entry 1 Start Time 10/22/23 10:52:00 Stop Time 10/22/23 11:35:00 Acuity Level Acuity Level I Last Modified By: Lorri Sanchez RN 10/22/23 12:06:07 Finalized By: Lorri Sanchez RN Document Signatures Signed By: Lorri Sanchez RN 10/22/23 12:06 Normal [facility] Main OR Preoperative Recordo n 10-22-2023 Main OR Preoperative Record Holding Area Document Type FT Summary Primary Physician: Navdeep Valiente MD Finalized Date/Time: 10/22/23 09:34:35 Pt. Name: JOVANA XIE Dorcas/Sex: 1970 Female Med Rec #: [id number] Physician: Navdeep Valiente MD Financial #: [id number] Pt. Type: O Room/Bed: / Admit/Disch: 10/22/23 09:21:35 - Institution: Case Times Holding FT Pre-Care Text: Verifies consent for planned procedure, identifies individual values and wishes concerning care, includes family members in perioperative teaching Secures patient's records' belongings, and valuables, maintains patient's dignity and privacy, and maintains patient confidentiality Entry 1 In Holding 10/22/23 09:26:00 Outcomes Met? Yes Last Modified By: Fely Leon RN 10/22/23 09:28:00 Post-Care Text: The patient participates in decisions affecting his or her perioperative plan of care The patient's right to privacy is maintained Surgery Checklist FT Entry 1 Patient Birthday, ID Band Procedure History and Physical, Identification: Check, Patient Verification: Surgical Consent, With Participation Patient NPO after Midnight: Yes Results Reviewed Clear/yellow Comments: Personal Items: Glasses, Jewelry Personal Items Glassess, heart Comment: monitor, ring Limitations: Vision Complaints of Pain: No Pain Comment: Denies Operative Site n/a Marking: Availability Equipment Verified: Does Patient Smoke Yes If Yes to Smoking. Occasional Cigars or Cigarettes. How much per day? Patient states Yes Comment - Adult Shanon postop adult Supervision supervision available Case Cancelled in No Holding Area see comments below for reason Last Modified By: Fely Leon RN 10/22/23 09:34:31 General Comments: Pt completed prep at 0500 and remained NPO since/TANYARN Finalized By: Fely Leon RN Document Signatures Signed By: Fely Leon RN 10/22/23 09:34 Normal [facility] Monitor Recordon 10-22-2023 Monitor Record [id number] Normal [facility] Monitor Record [id number] Normal [facility] Patient Education - Texton 0 10-22-2023 Patient Education - Text Diverticulosis Many people have small pouches in their colon called diverticulum. The diverticulum bulge outward through weak spots in the colon. You could have one or more of these pouches in the colon. The condition of having these pouches in the colon is called diverticulosis or diverticular disease. Diverticulosis is usually diagnosed by tests to evaluate something else. For example, you may have had a colonoscopy to screen for colon cancer when the diverticulosis was found. Most people with diverticulosis do not have any discomfort or problems. If symptoms develop, they may include mild cramps, bloating, and constipation. A complication of this condition is called diverticulitis. This is when the diverticulum become inflamed and infected. How to treat diverticulosis: Increasing the amount of fiber in the diet may reduce symptoms of diverticulosis and prevent complications such as diverticulitis (infected diverticuli). Fiber keeps stool soft and lowers pressure inside the colon so that bowel contents can move through easily. You should eat 20 to 35 grams of fiber each day. The table below shows the amount of fiber in some foods that you can easily add to your diet. Adding fiber slowly may decrease the bloating and fullness sometimes felt with an immediate high fiber diet. The doctor may also recommend taking a fiber product such as Citrucel or Metamucil once a day. In the past people with diverticulosis were to avoid nuts, corn, and seeds. This has not been found to be true. If you find that certain foods create cramping or bloating, avoid that food. Foods high in fiber include: Fresh fruits, fresh vegetables, legumes (beans), whole wheat bread, bran muffins or cereal, and nuts. See the table below for examples of high fiber foods. Remember, your goal is 20-35 grams per day. Amount of fiber in different foods Food Serving Grams of fiber Fruits Apple (with skin) 1 medium apple 4.4 Banana 1 medium banana 3.1 Oranges 1 orange 3.1 Prunes 1 cup, pitted 12.4 Juices Apple, unsweetened, w/added ascorbic acid 1 cup 0.5 Grapefruit, white, canned, sweetened 1 cup 0.2 Grape, unsweetened, w/added ascorbic acid 1 cup 0.5 [place] 1 cup 0.7 Vegetables Cooked Green beans 1 cup 4.0 Carrots 1/2 cup sliced 2.3 Peas 1 cup 8.8 Potato (baked, with skin) 1 medium potato 3.8 Raw [place] (with peel) 1 cucumber 1.5 Lettuce 1 cup shredded 0.5 Tomato 1 medium tomato 1.5 Spinach 1 cup 0.7 Legumes Baked beans, canned, no salt added 1 cup 13.9 Kidney beans, canned 1 cup 13.6 Nova beans, canned 1 cup 11.6 Lentils, boiled 1 cup 15.6 Breads, pastas, flours Bran muffins 1 medium muffin 5.2 Oatmeal, cooked 1 cup 4.0 White bread 1 slice 0.6 Whole-wheat bread 1 slice 1.9 Pasta and rice, cooked Macaroni 1 cup 2.5 Rice, brown 1 cup 3.5 Rice, white 1 cup 0.6 Spaghetti (regular) 1 cup 2.5 Nuts Almonds 1/2 cup 8.7 Peanuts 1/2 cup 7.9 Chart from [facility] 2013. SEEK IMMEDIATE MEDICAL CARE IF: You develop abdominal (belly) pain. An oral temperature above _ 101? F__develops. Repeated vomiting occurs. Blood is being passed in stools (bright red or black tarry stools). You develop any bowel problems or changes which you have not had before. Extra Information: To learn how much fiber and other nutrients are in different foods, visit the [place] Department of Agriculture (USDA) National Nutrient Database at: http://www.[employer].usda .gov/fnic/foodcomp/ search/ Created using data from the USDA National Nutrient Database for Standard Reference. Available at http://www.[employer].usda .gov/fnic/foodcomp/ search/. Information adapted from: [facility]? Patient Information ?2009 [place]. [facility] 2012 http://www.[employer]/contents/diver moxtxev-lqizeyt-swm vqn-how-iacxrh Colonoscopy Care After Surgery Please read the instructions outlined below and refer to this sheet in the next few weeks. These discharge instructions provide you with general information on caring for yourself after you leave the hospital. Your doctor may also give you specific instructions. While your treatment has been planned according to the most current medical practices available, unavoidable complications occasionally occur. If you have any problems or questions after discharge, please call your doctor. ACTIVITY You may resume your regular activity, but move at a slower pace for the next 24 hours. Take frequent rest periods for the next 24 hours. Walking will help get rid of the air and reduce the bloated feeling in your abdomen (belly). No driving for 24 hours (because of the anesthesia (medicine) used during the test). You may shower. Do not sign any important legal documents or operate any machinery for 24 hours (because of the anesthesia used during the test). NUTRITION Drink plenty of fluids. You may resume your normal diet as instructed by your doctor. Begin with a light meal and progress (more content not included)... Normal [facility] Progress Note-Physicianon Progress Note-Physician Patient: JOVANA XIE Age: 53 years Sex: Female : 1970 Associated Diagnoses: None Author: Campbell Santiago DO Postoperative Information Postoperative disposition: Postoperative disposition: To PACU. Anesthetic utilized: General. Health Status Allergies: Allergic Reactions (Selected) Severe Decadron- Unknown. Mild PredniSONE- Unknown. Severity Not Documented Penicillin- Unknown. Current medications: (Selected) Inpatient Medications Ordered Sodium Chloride 0.9% IV Ruth 1000 mL 1,000 mL: 1,000 mL, IV, 20 mL/hr, Routine, Start date 10/22/23 6:40:00 EDT, 50 hour(s), Total volume (mL): 1,000, 121.6 kg, 2.34, m2 Prescriptions Prescribed Ozempic (1 mg dose) 4 mg/3 mL subcutaneous solution: See Instructions, INJECT 1 MG SUBCUANEOUSLY WEEKLY, # 9 mL, Refills(s) 3, Pharmacy: [facility], 162, cm, 09/25/23 13:12:00 EDT, Height/Length Dosing, 121.7, kg, 09/25/23 13:12:00 EDT, Weight Dosing hydrochlorothiazide 25 mg Tab: 25 mg = 1 tab(s), Oral, Daily, # 90 tab(s), Refills(s) 0, Pharmacy: [facility], 162, cm, 09/25/23 13:12:00 EDT, Height/Length Dosing, 121.7, kg, 09/25/23 13:12:00 EDT, Weight Dosing losartan 100 mg Tab: 100 mg = 1 tab(s), Oral, Daily, # 90 tab(s), Refills(s) 0, Pharmacy: [facility], 162, cm, 09/25/23 13:12:00 EDT, Height/Length Dosing, 121.7, kg, 09/25/23 13:12:00 EDT, Weight Dosing metformin 500 mg Tab: See Instructions, TAKE 1 TABLET BY MOUTH EVERY DAY, # 90 tab(s), Refills(s) 3, Pharmacy: [facility] [address], 162, cm, 09/25/22 11:02:00 EDT, Height/Length Dosing, 138.5, kg, 04/24/23 11:02:00 EDT, Weight Dosing Documented Medications Documented Nurtec ODT 75 mg oral tablet, disintegratin mg = 1 tab(s), SubLingual, Once, at onset of migraine, Refills(s) 0, Migraine headache Topamax 50 mg Tab: 50 mg = 1 tab(s), Oral, BID, Refills(s) 0, Migraine headache montelukast 10 mg Tab: 10 mg = 1 tab(s), Oral, Daily, Refills(s) 0, Shortness of breath or wheezing omeprazole 20 mg Cap-DR: 20 mg = 1 cap(s), Oral, Daily, Refills(s) 0, Control of stomach acid, Home Medications (8) Active hydrochlorothiazide 25 mg Tab 25 mg = 1 tab(s), Oral, Daily losartan 100 mg Tab 100 mg = 1 tab(s), Oral, Daily metformin 500 mg Tab See Instructions montelukast 10 mg Tab 10 mg = 1 tab(s), Oral, Daily Nurtec ODT 75 mg oral tablet, disintegrating 75 mg = 1 tab(s), SubLingual, Once omeprazole 20 mg Cap-DR 20 mg = 1 cap(s), Oral, Daily Ozempic (1 mg dose) 4 mg/3 mL subcutaneous solution See Instructions Topamax 50 mg Tab 50 mg = 1 tab(s), Oral, BID Problem list: All Problems Asthma / SNOMED CT [id number] / Confirmed Body mass index (BMI) of 45.0-49.9 in adult / SNOMED CT 9563020244 / Confirmed Chronic GERD / SNOMED CT 262911180 / Confirmed Colon cancer screening / SNOMED CT 083228156 / Confirmed Constipation, outlet dysfunction / SNOMED CT 62173055 / Confirmed Controlled type 2 diabetes mellitus without complication, without long-term current use of insulin / SNOMED CT 075380318 / Confirmed Derangement of knee / SNOMED CT 630064646 / Confirmed Diabetes mellitus type II, controlled / SNOMED CT 037047731 / Confirmed Extrinsic asthma with status asthmaticus / SNOMED CT 3320340457 / Confirmed Headache / SNOMED CT 08762134 / Confirmed Hemorrhoids / SNOMED CT 582426291 / Confirmed HTN (hypertension) / SNOMED CT 8974246273 / Confirmed Metabolic syndrome X / SNOMED CT 513266866 / Confirmed Morbid obesity / SNOMED CT 011853754 / Confirmed Osteoarthritis / SNOMED CT 1951375064 / Confirmed idiopathic Pain in thumb joint with movement of right hand / SNOMED CT 379196478 / Confirmed Pelvic floor dysfunction / SNOMED CT 1661031784 / Confirmed Psoriasis / SNOMED CT 72591920 / Confirmed Raynaud's phenomenon without gangrene / SNOMED CT 981725294 / Confirmed Raynauds phenomenon / SNOMED CT 747991020 / Confirmed isolated, primary S/P cholecystectomy / SNOMED CT 8150330348 / Confirmed S/P hysterectomy / SNOMED CT 799505928 / Confirmed Sciatica / SNOMED CT 88905292 / Confirmed Smoker / SNOMED CT 720912187 / Confirmed Steatosis of liver / SNOMED CT 449724875 / Confirmed 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 Vitamin D3 deficiency / SNOMED CT 0532267532 / Confirmed Canceled: Fatigue / IMO 54742 Canceled: Folliculitis / IMO 43 Canceled: GERD with apnea / SNOMED CT 3718923406 Physical Examination Vital Signs 10/22/2023 11:00 EDT Heart Rate Monitored 68 bpm Respiratory Rate Monitored 13 br/min Systolic Blood Pressure 90 mmHg Diastolic Blood Pressure 55 mmHg LOW Blood Pressure Location Right arm Mean Arterial Pressure, Cuff 67 mmHg SpO2 96 % 10/22/2023 10:55 EDT Heart Rate Monitored 66 bpm Respiratory Rate Monitored 25 br/min Systolic Blood Pressure 96 mmHg Diastolic Blood Pressure 56 mmHg LOW Blood Pressure Location Right arm Mean Arterial Pressure, Cuff 69 mmHg SpO2 93 % 10/22/2023 10:52 E (more content not included)... Normal [facility] Comment on above: Result Comment: Elec tronically Signed By: Campbell Santiago DO\.br\Date and Time Signed: 10/22/23 11:08 EDT Progress Note-Physician Patient: JOVANA XIE Age: 53 years Sex: Female : 1970 Associated Diagnoses: None Author: Campbell Santiago DO Preoperative Information Anesthesia history: Patient history: None. Family history+: None. Anesthesia results Informed consent: Signed by patient. Including risks, benefits, and alternatives related to the: Anesthetic plan, Postoperative pain management plan. Re-evaluation prior to induction: Campbell Santiago DO Health Status Allergies: Allergic Reactions (Selected) Severe Decadron- Unknown. Mild PredniSONE- Unknown. Severity Not Documented Penicillin- Unknown., Allergies (3) Active Severity Reaction Decadron Severe Unknown predniSONE Mild Unknown penicillin Unknown Current medications: (Selected) Inpatient Medications Ordered Sodium Chloride 0.9% IV Ruth 1000 mL 1,000 mL: 1,000 mL, IV, 20 mL/hr, Routine, Start date 10/22/23 6:40:00 EDT, 50 hour(s), Total volume (mL): 1,000, 121.6 kg, 2.34, m2 Prescriptions Prescribed Ozempic (1 mg dose) 4 mg/3 mL subcutaneous solution: See Instructions, INJECT 1 MG SUBCUANEOUSLY WEEKLY, # 9 mL, Refills(s) 3, Pharmacy: [id number], 162, cm, 09/25/23 13:12:00 EDT, Height/Length Dosing, 121.7, kg, 09/25/23 13:12:00 EDT, Weight Dosing hydrochlorothiazide 25 mg Tab: 25 mg = 1 tab(s), Oral, Daily, # 90 tab(s), Refills(s) 0, Pharmacy: [facility], 162, cm, 09/25/23 13:12:00 EDT, Height/Length Dosing, 121.7, kg, 09/25/23 13:12:00 EDT, Weight Dosing losartan 100 mg Tab: 100 mg = 1 tab(s), Oral, Daily, # 90 tab(s), Refills(s) 0, Pharmacy: [facility], 162, cm, 09/25/23 13:12:00 EDT, Height/Length Dosing, 121.7, kg, 09/25/23 13:12:00 EDT, Weight Dosing metformin 500 mg Tab: See Instructions, TAKE 1 TABLET BY MOUTH EVERY DAY, # 90 tab(s), Refills(s) 3, Pharmacy: [facility] [id number], 162, cm, 09/25/22 11:02:00 EDT, Height/Length Dosing, 138.5, kg, 09/25/22 11:02:00 EDT, Weight Dosing Documented Medications Documented Nurtec ODT 75 mg oral tablet, disintegratin mg = 1 tab(s), SubLingual, Once, at onset of migraine, Refills(s) 0, Migraine headache Topamax 50 mg Tab: 50 mg = 1 tab(s), Oral, BID, Refills(s) 0, Migraine headache montelukast 10 mg Tab: 10 mg = 1 tab(s), Oral, Daily, Refills(s) 0, Shortness of breath or wheezing omeprazole 20 mg Cap-DR: 20 mg = 1 cap(s), Oral, Daily, Refills(s) 0, Control of stomach acid, Home Medications (8) Active hydrochlorothiazide 25 mg Tab 25 mg = 1 tab(s), Oral, Daily losartan 100 mg Tab 100 mg = 1 tab(s), Oral, Daily metformin 500 mg Tab See Instructions montelukast 10 mg Tab 10 mg = 1 tab(s), Oral, Daily Nurtec ODT 75 mg oral tablet, disintegrating 75 mg = 1 tab(s), SubLingual, Once omeprazole 20 mg Cap-DR 20 mg = 1 cap(s), Oral, Daily Ozempic (1 mg dose) 4 mg/3 mL subcutaneous solution See Instructions Topamax 50 mg Tab 50 mg = 1 tab(s), Oral, BID , Medications (1) Active Scheduled: (0) Continuous: (1) Sodium Chloride 0.9% 1,000 mL 1,000 mL, IV, 20 mL/hr PRN: (0) Problem list: All Problems Asthma / SNOMED CT 268440215 / Confirmed Body mass index (BMI) of 45.0-49.9 in adult / SNOMED CT 9794437900 / Confirmed Chronic GERD / SNOMED CT 764386272 / Confirmed Colon cancer screening / SNOMED CT 558571089 / Confirmed Constipation, outlet dysfunction / SNOMED CT 31422323 / Confirmed Controlled type 2 diabetes mellitus without complication, without long-term current use of insulin / SNOMED CT 199269068 / Confirmed Derangement of knee / SNOMED CT 058555716 / Confirmed Diabetes mellitus type II, controlled / SNOMED CT 834376713 / Confirmed Extrinsic asthma with status asthmaticus / SNOMED CT 3243543198 / Confirmed Headache / SNOMED CT 30460760 / Confirmed Hemorrhoids / SNOMED CT 995037264 / Confirmed HTN (hypertension) / SNOMED CT 0465101604 / Confirmed Metabolic syndrome X / SNOMED CT 450790392 / Confirmed Morbid obesity / SNOMED CT 952771231 / Confirmed Osteoarthritis / SNOMED CT 5601318535 / Confirmed idiopathic Pain in thumb joint with movement of right hand / SNOMED CT 900394443 / Confirmed Pelvic floor dysfunction / SNOMED CT 0052062754 / Confirmed Psoriasis / SNOMED CT 04193929 / Confirmed Raynaud's phenomenon without gangrene / SNOMED CT 763045093 / Confirmed Raynauds phenomenon / SNOMED CT 160471423 / Confirmed isolated, primary S/P cholecystectomy / SNOMED CT 6031303524 / Confirmed S/P hysterectomy / SNOMED CT 070893641 / Confirmed Sciatica / SNOMED CT 61582319 / Confirmed Smoker / SNOMED CT 046907981 / Confirmed Steatosis of liver / SNOMED CT 448684560 / Confirmed Ulnar neuropathy / SNOMED CT 602884258 / Confirmed left arm Vitamin D3 deficiency / SNOMED CT 2083563860 / Confirmed Canceled: Fatigue / IMO 53416 Canceled: Folliculitis / IMO 43 Canceled: GERD with apnea / SNOMED CT 6056127665, Active Problems (27) Asthma Body mass index (BMI) of 45.0-49.9 in adult Chronic GERD Col (more content not included)... Normal [facility] Comment on above: Result Comment: Elec tronically Signed By: Campbell Santiago DO\.br\Date and Time Signed: 10/22/23 09:59 EDT Consent for Procedure/Surger yon 10-19-2023 Consent for Procedure/Surgery [id number] Normal [facility] Office Visiton 10-19-2023 Follow-up visit [id number] Jovana Xie 1970 F Date Provider Department Center 10/19/2023 Dyan8-NAVDEEP TALLEY Family History Problem Relation Age of Onset Coronary artery disease Mother Other Mother Family Status - Relation Status Age at Mother Level of Service:54336 NE OFFICE/OUTPATIENT ESTABLISHED MOD MDM 30 MIN Normal [facility] Ambulatory Visit Summaryon 0 10-18-2023 Ambulatory Visit Summary JOVANA XIE :1970 Visit Date:10/18/2023 Ambulatory Visit Instructions Your Diagnosis Screen for colon cancer Morbid obesity Chronic GERD Constipation, outlet dysfunction Pelvic floor dysfunction S/P cholecystectomy S/P hysterectomy Apnea, not elsewhere classified Your Care Team Attending Physician - Navdeep Valiente MD Primary Care Physician - Melissa Erazo MD Referring Physician - Melissa Erazo MD This Is Your Medications List Contact prescribing physician if questions or concerns hydrochlorothiazide (hydrochlorothiazid e 25 mg Tab) losartan (losartan 100 mg Tab) metformin (metformin 500 mg Tab) montelukast (montelukast 10 mg Tab) omeprazole (omeprazole 20 mg Cap-DR) polyethylene glycol 3350 (polyethylene glycol 3350 Oral Pwdr for Recon) rimegepant (Nurtec ODT 75 mg oral tablet, disintegrating) semaglutide (Ozempic (1 mg dose) 4 mg/3 mL subcutaneous solution) topiramate (Topamax 50 mg Tab) Procedures Performed Cardiac catheter (2005), MANDI BSO - Total abdominal hysterectomy and bilateral salpingo-oophorecto my (01/15/2004), Arthroscopy, History of lumbar spine surgery, Tonsillectomy and adenoidectomy. Discharge Vitals Heart Rate (Peripheral) 76 Blood Pressure 118/82 Height 162 cm Height 64 in Weight 121.6 kg Weight 267.52 lb BMI 46.33 What to do next Scheduled Follow-Up Appointments October. 2023 9:30 AM EDT With: Melissa Erazo MD Where: [facility] [place] Normal [facility] Gastroenterology Office/Clin ic Noteon 10-18-2023 Gastroenterology Office/Clinic Note Chief Complaint Colonoscopy HPI Staff Patient referred by: Dr Erazo Screening colonoscopy Family history of colon cancer : Unknown Patient adopted If yes - relation :_ Age relative diagnosed if known : Symptoms: Rectal bleeding: Denies Diarrhea: Denies Constipation: Complains of Rectal pain: Denies Change in bowel habits: Denies Abdominal Pain: Denies Abdominal cramping: Denies Currently taking blood thinner? Denies If yes, list medication and why taking: Cardiac history? Yes Name of heating and ventilating tender: [facility] Cardiology If yes, does patient have pacemaker or stents? _ Is patient currently taking any of the following GLP-1 medication? Yes Ozempic If yes, appropriate instruction to hold prior to procedure given. Dulaglutide (Trulicity) (weekly) Exenatide extended release (Bydureon bcise) (weekly) Exenatide (Byetta) (twice daily) Semaglutide (Ozempic) (weekly) Liraglutide (Victoza, Saxenda) (daily) Any previous issues with anesthesia? No History of Present Illness I have reviewed HPI staff note, most recent labs and imaging, more than 30 minutes spent reviewing the chart, during encounter, placing orders and counseling the patient. PT is asymptomatic constipation for years every other day - BMs pt pushes for BMs incomplete evacuation Pt tried miralax in the past hysterectomy in the past on omeprazole for GERD. started in second grade Review of Systems PHQ Score Initial Depression Screen Score: 0 SCORE All systems reviewed, negative except as mentioned above Physical Exam Vitals & Measurements HR: 76(Peripheral) BP: 118/82 HT: 64 in HT: 162 cm WT: 121.6 kg WT: 267.52 lb BMI: 46.33 General: alert, no acute distress HEENT: atraumatic normocephalic Cardiovascular: regular rate and rhythm, normal peripheral perfusion Respiratory: Lungs CTA, respirations non labored Extremities: no deformity, no trauma Abdomen: Benign, soft, nontender nondistended Assessment/Plan 1. Screen for colon cancer (Z12.11: Encounter for screening for malignant neoplasm of colon) Ordered: Colonoscopy (Hospital Procedure) EGD Endoscopy (Hospital Procedure) 2. Morbid obesity (E66.01: Morbid (severe) obesity due to excess calories) Ordered: EGD Endoscopy (Hospital Procedure) 3. Chronic GERD (K21.9: Gastro-esophageal reflux disease without esophagitis) 4. Constipation, outlet dysfunction (K59.02: Outlet dysfunction constipation) 5. Pelvic floor dysfunction (M62.89: Other specified disorders of muscle) 6. S/P cholecystectomy (Z90.49: Acquired absence of other specified parts of digestive tract) 7. S/P hysterectomy (Z90.710: Acquired absence of both cervix and uterus) Apnea, not elsewhere classified (R06.81: Apnea, not elsewhere classified) Schedule upper endoscopy to evaluate GERD Schedule colonoscopy to screen for colon cancer Patient will benefit from losing weight and eating healthy Advised to use squatty potty and massage the colon Continue MiraLAX as needed Advised to use prunes and kiwi fruits Follow-up No qualifying data available Problem List/Past Medical History Ongoing Asthma Body mass index (BMI) of 45.0-49.9 in adult Chronic GERD Colon cancer screening Constipation, outlet dysfunction Controlled type 2 diabetes mellitus without complication, without long-term current use of insulin Derangement of knee Diabetes mellitus type II, controlled Extrinsic asthma with status asthmaticus Headache Hemorrhoids HTN (hypertension) Metabolic syndrome X Morbid obesity Osteoarthritis Pain in thumb joint with movement of right hand Pelvic floor dysfunction Psoriasis Raynaud's phenomenon without gangrene Raynauds phenomenon S/P cholecystectomy S/P hysterectomy Sciatica Smoker Steatosis of liver Ulnar neuropathy Vitamin D3 deficiency Historical No qualifying data Procedure/Surgical History Cardiac catheter (2005), MANDI BSO - Total abdominal hysterectomy and bilateral salpingo-oophorecto my (01/15/2004), Arthroscopy, History of lumbar spine surgery, Tonsillectomy and adenoidectomy. Medications hydrochlorothiazide 25 mg Tab, 25 mg= 1 tab(s), Oral, Daily losartan 100 mg Tab, 100 mg= 1 tab(s), Oral, Daily metformin 500 mg Tab, See Instructions montelukast 10 mg Tab, 10 mg= 1 tab(s), Oral, Daily Nurtec ODT 75 mg oral tablet, disintegrating, 75 mg= 1 tab(s), SubLingual, Once omeprazole 20 mg Cap-DR, 20 mg= 1 cap(s), Oral, Daily Ozempic (1 mg dose) 4 mg/3 mL subcutaneous solution, See Instructions, 3 refills polyethylene glycol 3350 Oral Pwdr for Recon, 17 gm, Oral, Daily Topamax 50 mg Tab, 50 mg= 1 tab(s), Oral, BID Allergies Decadron (Unknown) predniSONE (Unknown) penicillin (Unknown) Social History Tobacco Former smoker, quit more than 30 days ago Tobacco Use:. Never, Former vaping or e-cigarette use Smokeless Tobacco Use:. Cigarettes, Vaping, 10/18/2023 Family History Patient was adopted Diabetes toño (more content not included)... Normal [facility] Comment on above: Result Comment: Elec tronically Signed By: Steffanie AIKEN, Navdeep Rodríguez\.br\Date and Time Signed: 10/18/23 10:03 EDT Ambulatory Visit Summaryon 0 4-23-2024 Ambulatory Visit Summary JOVANA XIE :1970 Visit Date:09/25/2023 Ambulatory Visit Instructions Your Diagnosis Controlled type 2 diabetes mellitus without complication, without long-term current use of insulin Morbid obesity, Class 3 severe obesity due to excess calories with body mass index (BMI) of 45.0 to 49.9 in adult HTN (hypertension) Colon cancer screening Derangement of knee Body mass index (BMI) of 45.0-49.9 in adult, BMI 45.0-49.9, adult, Body mass index [BMI] 45.0-49.9, adult Former smoker Your Care Team Attending Physician - Melissa Erazo MD. Primary Care Physician - Melissa Erazo MD This Is Your Medications List hydrochlorothiazide (hydrochlorothiazid e 25 mg Tab) losartan (losartan 100 mg Tab) semaglutide (Ozempic (1 mg dose) 4 mg/3 mL subcutaneous solution) Contact prescribing physician if questions or concerns metformin (metformin 500 mg Tab) montelukast (montelukast 10 mg Tab) omeprazole (omeprazole 20 mg Cap-DR) polyethylene glycol 3350 (polyethylene glycol 3350 Oral Pwdr for Recon) rimegepant (Nurtec ODT 75 mg oral tablet, disintegrating) topiramate (Topamax 50 mg Tab) [Image Removed: STOP]Stop taking these medications duloxetine (duloxetine 30 mg Cap-DR) Procedures Performed Cardiac catheter (2005), MANDI BSO - Total abdominal hysterectomy and bilateral salpingo-oophorecto my (01/15/2004), Arthroscopy, History of lumbar spine surgery, Tonsillectomy and adenoidectomy. Discharge Vitals Temperature (Temporal Artery) 37.0 ?C Heart Rate (Peripheral) 72 Respiratory Rate 16 Blood Pressure 150/96 Height 162 cm Height 64 in Weight 121.7 kg Weight 267.74 lb BMI 46.37 What to do next Scheduled Follow-Up Appointments 2023 9:30 AM EDT With: Melissa Erazo MD Where: [facility] [place] Normal [facility] CBC w/ Auto Diffon 4 Basophils/100 WBC (Bld) 0.3 % Normal 0.0-2.0 [facility] Comment on above: Performed By: #### 2 [id number], [id number], 9967159, 78845100 ####[address] [address] Basophils/Leukocyt es Auto (Bld) [Pure # fraction] 0.0 E9/L Normal 0.0-0.2 [facility] Comment on above: Performed By: #### 2 063054, [id number], 7340273, [id number] ####[address] [address] Eosinophils (Bld) [#/Vol] 0.5 E9/L Normal 0.0-0.5 [facility] Comment on above: Performed By: #### 2 737324, [id number], 9778862, 27788419 ####[address] [address] Eosinophils/100 WBC (Bld) 4.4 % Normal 0.0-8.0 [facility] Comment on above: Performed By: #### 2 440401, 912376968, 8522693, 83344479 ####[address] [address] Erythrocyte distribution width (RBC) [Ratio] 15.2 % High 10.9-14.2 [facility] Comment on above: Performed By: #### 2 578753, [id number], 4985484, 32465049 ####[address] [address] Hematocrit (Bld) [Volume fraction] 38.6 % Normal 34.0-46.0 [facility] Comment on above: Performed By: #### 2 617128, [id number], 0269080, 88788701 ####[address] [address] Hemoglobin (Bld) [Mass/Vol] 12.7 g/dL Normal 12.0-16.0 [facility] Comment on above: Performed By: #### 2 928919, 346954606, 7597489, 81825050 ####[address] [address] Lymphocytes (Bld) [#/Vol] 2.5 E9/L Normal 1.0-4.0 [facility] Comment on above: Performed By: #### 2 730672, 813315994, 2754363, 72688328 ####[address] [address] Lymphocytes/100 WBC (Bld) 23.7 % Normal 14.0-50.0 [facility] Comment on above: Performed By: #### 2 120116, 246622205, 7979158, 76830526 ####[address] [address] MCH (RBC) [Entitic mass] 29.0 pg Normal 27.0-34.0 [facility] Comment on above: Performed By: #### 2 217788, 192523997, 9136043, 27782084 ####[address] [address] MCHC (RBC) [Mass/Vol] 33.0 g/dL Normal 31.4-36.0 [facility] Comment on above: Performed By: #### 2 701764, 907841789, 1710118, 20556837 ####[address] [address] MCV (RBC) [Entitic vol] 88.1 fL Normal 80.0-100.0 [facility] Comment on above: Performed By: #### 2 505044, 824306825, 3217212, 43391058 ####[address] [address] Monocytes (Bld) [#/Vol] 0.6 E9/L Normal 0.2-1.0 [facility] Comment on above: Performed By: #### 2 496818, 339874020, 1636861, 45903117 ####[facility] [address] [place] [address] Neutrophils (Bld) [#/Vol] 7.0 E9/L Normal 2.0-7.5 [facility] Comment on above: Performed By: #### 2 239314, 049282351, 8870228, 21454608 ####[facility] [address] [place] [address] Neutrophils/100 WBC (Bld) 65.8 % Normal 36.0-75.0 [facility] Comment on above: Performed By: #### 2 417117, 171463605, 8690385, 96384304 ####[address] [address] Platelet 344.0 E9/L Normal 150.0-500.0 [facility] Comment on above: Performed By: #### 2 104353, 543717284, 3676090, 61183868 ####[address] [address] Platelet mean volume (Bld) [Entitic vol] 8.9 fL Normal 6.4-10.8 [facility] Comment on above: Performed By: #### 2 640640, 641754983, 8171810, 51974585 ####[address] [address] RBC (Bld) [#/Vol] 4.4 E12/L Normal 4.3-5.9 [facility] Comment on above: Performed By: #### 2 735611, 941374081, 5532810, 88412756 ####[facility] [address] [place] [address] WBC corrected for nucl RBC Auto (Bld) [#/Vol] 10.6 E9/L Normal 4.0-11.0 [facility] Comment on above: Performed By: #### 2 942855, 270927671, 9029705, 05599382 ####[facility] [address] [place] [address] CHEMISTRYOrdered By: SYSTEM SYSTEM on 09-25-2023 Albumin [Mass/Vol] 3.5 g/dL Normal 3.3 - 5.0 gm/dL R emisol Chem Albumin DL <= 20 mg/L (U) [Mass/Vol] 0.7 mg/dL Normal 0.0 - 1.9 mg/dL Remisol Chem Albumin/Globulin [Mass ratio] 1.2 {ratio} Normal 1.1 - 2.2 Remisol Chem ALP [Catalytic activity/Vol] 99 [iU]/d High 21 - 98 Int._Unit/L Remisol Chem ALT No additional P-5'-P [Catalytic activity/Vol] 30 [iU]/d Normal 6 - 46 Int._Unit/L Remisol Chem Anion gap [Moles/Vol] 11 mmol/L Normal 6 - 16 mEq/L Remisol Chem AST [Catalytic activity/Vol] 20 [iU]/d Normal 5 - 43 Int._Unit/L Remisol Chem Bilirubin [Mass/Vol] 0.5 mg/dL Normal 0.0 - 1.1 mg/dL Remisol Chem Calcium [Mass/Vol] 9.4 mg/dL Normal 8.9 - 11.1 mg/dL Remisol Chem Chloride [Moles/Vol] 104 mmol/L Normal 101 - 111 mmol/L Remisol Chem CO2 [Moles/Vol] 26 mmol/L Normal 21 - 31 mmol/L Remis ol Chem Creatinine [Mass/Vol] 0.8 mg/dL Normal 0.5 - 1.3 mg/dL Remisol Chem eGFR 88 mL/min/1.73 m2 Normal >=59mL/min/1.73 m2 Remisol Chem Globulin (S) [Mass/Vol] 3.0 g/dL Normal 1.4 - 4.0 gm/dL Remisol Chem Glucose [Mass/Vol] 113 mg/dL Normal 55 - 199 mg/dL Re misol Chem Potassium [Moles/Vol] 4.3 mmol/L Normal 3.5 - 5.3 mmol/L Remisol Chem Protein [Mass/Vol] 6.5 g/dL Normal 6.0 - 7.8 gm/dL R emisol Chem Sodium [Moles/Vol] 137 mmol/L Normal 135 - 145 mmol/L Remisol Chem Urea nitrogen [Mass/Vol] 20 mg/dL Normal 5 - 21 mg/dL Remisol Chem Urea nitrogen/Creatinin e [Mass ratio] 25 mg/mg High 10 - 20 Remisol Chem CHEMISTRYOrdered By: Leyn Crabtree on 09-25-2023 HbA1c (Bld) [Mass fraction] 5.2 % Normal <=5.9% [facility] ChemAutoSS CMPon 09-25-2023 Albumin [Mass/Vol] 3.5 g/dL Normal 3.3-5.0 [facility] Comment on above: Performed By: #### 2 879701, [id number], 3499758, 17664534 ####[facility] [address] [place] [address] Albumin/Globulin (S) [Mass conc ratio] 1.2 Normal 1.1-2.2 [facility] Comment on above: Performed By: #### 2 396753, 221005529, 4498856, 27217273 ####[facility] [address] [place] [address] ALP [Catalytic activity/Vol] 99 Int._Unit/L High 21-98 [facility] Comment on above: Performed By: #### 2 981226, 359162118, 4138805, 31200044 ####[facility] [address] [facility] [place] [address] ALT No additional P-5'-P [Catalytic activity/Vol] 30 Int._Unit/L Normal 6-46 [facility] Comment on above: Performed By: #### 2 967761, 065886552, 0012191, 14407686 ####[facility] [address] [facility] [place] [address] Anion gap [Moles/Vol] 11 mmol/L Normal 6-16 [facility] Comment on above: Performed By: #### 2 709196, 102072545, 2824828, 56249805 ####[facility] [address] [facility] [place] [address] AST [Catalytic activity/Vol] 20 Int._Unit/L Normal 5-43 [facility] Comment on above: Performed By: #### 2 887743, [id number], 0153316, 90615146 ####[facility] [address] [place] [address] Bilirubin [Mass/Vol] 0.5 mg/dL Normal 0.0-1.1 [facility] Comment on above: Performed By: #### 2 831290, 790280400, 3228121, 08892915 ####[facility] [address] [place] [address] Calcium [Mass/Vol] 9.4 mg/dL Normal 8.9-11.1 [facility] Comment on above: Performed By: #### 2 767489, 906822207, 4428745, 78974767 ####[address] [address] Chloride [Moles/Vol] 104 mmol/L Normal 101-111 [facility] Comment on above: Performed By: #### 2 346585, 035592483, 8850048, 16773220 ####[facility] [address] [place] [address] CO2 [Moles/Vol] 26 mmol/L Normal 21-31 [facility] Comment on above: Performed By: #### 2 914026, 772236940, 5171051, 50832002 ####[facility] [address] [place] [address] Creatinine [Mass/Vol] 0.8 mg/dL Normal 0.5-1.3 [facility] Comment on above: Performed By: #### 2 [id number], [id number], [id number], [id number] ####[facility] [address] [place] [address] Globulin (S) [Mass/Vol] 3.0 g/dL Normal 1.4-4.0 [facility] Comment on above: Performed By: #### 2 [id number], [id number], [id number], [id number] ####[facility] [address] [place] [address] [place] [address] Glucose [Mass/Vol] 113 mg/dL Normal 55-199 [facility] Comment on above: Performed By: #### 2 160909, [id number], [id number], [id number] ####[facility] [address] [place] [address] Potassium [Moles/Vol] 4.3 mmol/L Normal 3.5-5.3 [facility] Comment on above: Performed By: #### 2 450756, [id number], [id number], [id number] ####[facility] [address] [place] [address] Protein [Mass/Vol] 6.5 g/dL Normal 6.0-7.8 [facility] Comment on above: Performed By: #### 2 111240, [id number], [id number], [id number] ####[facility] [address] [place] [address] Sodium [Moles/Vol] 137 mmol/L Normal 135-145 [facility] Comment on above: Performed By: #### 2 336594, [id number], [id number], [id number] ####[facility] [address] [place] [address] Urea nitrogen [Mass/Vol] 20 mg/dL Normal 5-21 [facility] Comment on above: Performed By: #### 2 [id number], [id number], [id number], [id number] ####[facility] [address] [place] [address] Urea nitrogen/Creatinin e [Mass ratio] 25 No Units High 10-20 [facility] Comment on above: Performed By: #### 2 [id number], [id number], [id number], [id number] ####[facility] [address] [place] [address] Family Medicine Office/Clini c Noteon 09-25-2023 Family Medicine Office/Clinic Note HPI Staff Jovana is a 53 year old female presenting for medication refills Acute: lost weight, medication making her sick Says she's been incarcerated for a couple months and lost weight while there had the shot while there but got home and once she got home the shot started making her sick, vomiting badly and diarrhea also. Never was able to get a colonoscopy done, faltered on some things. Wants to get back on track now that's she's home History of Present Illness - Here to re-establish. - Was incarcerated - Unsure where your BS are. - Unsure where her labs are. Review of Systems PHQ Score Initial Depression Screen Score: 0 SCORE Physical Exam Vitals & Measurements T: 37.0 ?C(Temporal Artery) HR: 72(Peripheral) RR: 16 BP: 150/96 SpO2: 95% HT: 64 in HT: 162 cm WT: 121.7 kg WT: 267.74 lb BMI: 46.37 General: alert, no acute distress, Morbidly Obese ENMT: oral mucosa moist, Cardiovascular: regular rate and rhythm, normal peripheral perfusion Respiratory: Lungs CTA, respirations non labored Extremities: no deformity, no trauma Neurological: oriented x 4, LOC appropriate for age, CN II-XII intact, motor strength equal & normal bilaterally, speech normal Abdomen: Soft, Nontender, Non-distended, + BS Assessment/Plan 1. Controlled type 2 diabetes mellitus without complication, without long-term current use of insulin (E11.9: Type 2 diabetes mellitus without complications) - Will do labs. - Continue on meds - Adjust base of labs. - Follow up in 1 month. Ordered: hydrochlorothiazide , 25 mg = 1 tab(s), Oral, Daily, # 90 tab(s), Refills(s) 0, Pharmacy: [facility], 162, cm, 09/25/23 13:12:00 EDT, Height/Length Dosing, 121.7, kg, 09/25/23 13:12:00 EDT, Weight Dosing CBC w/ Auto Diff Comprehensive Metabolic Panel [facility] Internal Ambulatory Referral HgbA1c Microalbumin Level Urine 2. Morbid obesity (E66.01: Morbid (severe) obesity due to excess calories) - Diet and exercise advised Ordered: hydrochlorothiazide , 25 mg = 1 tab(s), Oral, Daily, # 90 tab(s), Refills(s) 0, Pharmacy: [facility], 162, cm, 09/25/23 13:12:00 EDT, Height/Length Dosing, 121.7, kg, 09/25/23 13:12:00 EDT, Weight Dosing CBC w/ Auto Diff Comprehensive Metabolic Panel [facility] Internal Ambulatory Referral HgbA1c Microalbumin Level Urine 3. HTN (hypertension) (I10: Essential (primary) hypertension) - Will increase the losartan and add HCTZ. - Follow up in 1 month Ordered: hydrochlorothiazide , 25 mg = 1 tab(s), Oral, Daily, # 90 tab(s), Refills(s) 0, Pharmacy: [facility], 162, cm, 09/25/23 13:12:00 EDT, Height/Length Dosing, 121.7, kg, 09/25/23 13:12:00 EDT, Weight Dosing CBC w/ Auto Diff Comprehensive Metabolic Panel [facility] Internal Ambulatory Referral HgbA1c Microalbumin Level Urine 4. Colon cancer screening (Z12.11: Encounter for screening for malignant neoplasm of colon) - Will send for colonoscopy Ordered: hydrochlorothiazide , 25 mg = 1 tab(s), Oral, Daily, # 90 tab(s), Refills(s) 0, Pharmacy: [facility], 162, cm, 09/25/23 13:12:00 EDT, Height/Length Dosing, 121.7, kg, 09/25/23 13:12:00 EDT, Weight Dosing CBC w/ Auto Diff Comprehensive Metabolic Panel [facility] Internal Ambulatory Referral HgbA1c Microalbumin Level Urine 5. Derangement of knee (M23.90: Unspecified internal derangement of unspecified knee) - Use of cane PRN. - Follow up next month Ordered: hydrochlorothiazide , 25 mg = 1 tab(s), Oral, Daily, # 90 tab(s), Refills(s) 0, Pharmacy: [facility], 162, cm, 09/25/23 13:12:00 EDT, Height/Length Dosing, 121.7, kg, 09/25/23 13:12:00 EDT, Weight Dosing CBC w/ Auto Diff Comprehensive Metabolic Panel [facility] Internal Ambulatory Referral HgbA1c Microalbumin Level Urine 6. Body mass index (BMI) of 45.0-49.9 in adult (Z68.42: Body mass index [BMI] 45.0-49.9, adult) - BMI education discussed. - Diet and exercise advised. Ordered: hydrochlorothiazide , 25 mg = 1 tab(s), Oral, Daily, # 90 tab(s), Refills(s) 0, Pharmacy: [facility], 162, cm, 09/25/23 13:12:00 EDT, Height/Length Dosing, 121.7, kg, 09/25/23 13:12:00 EDT, Weight Dosing Orders: losartan, 100 mg = 1 tab(s), Oral, Daily, # 90 tab(s), Refills(s) 0, Pharmacy: [facility], 162, cm, 09/25/23 13:12:00 EDT, Height/Length Dosing, 121.7, kg, 09/25/23 13:12:00 EDT, Weight Dosing semaglutide, See Instructions, INJECT 1 MG SUBCUANEOUSLY WEEKLY, # 9 mL, Refills(s) 3, Pharmacy: [facility], 162, cm, 09/25/23 13:12:00 EDT, Height/Length Dosing, 121.7, kg, 09/25/23 13:12:00 EDT, Weight Dosing Follow-up No qualifying data available Patient Education BMI for Adults Problem List/Past Medical History Ongoing Asthma Body mass index (BMI) of 45.0-49.9 in adult Colon cancer screening Controlled type 2 diabetes mellitus without complication, without long-term current use of insulin Derangement of knee Diabetes mellitus type II, controlled Extrinsic asthma with st (more content not included)... Normal [facility] Comment on above: Result Comment: Elec tronically Signed By: Freeman AIKEN, Melissa [email or web address].br\Date and Time Signed: 09/25/23 13:42 EDT HEMATOLOGYOrdered By: SYSTEM SYSTEM on 09-25-2023 Basophils/100 WBC (Bld) 0.3 % Normal 0.0 - 2.0 % Remisol Heme Basophils/Leukocyt es Auto (Bld) [Pure # fraction] 0.0 E9/L Normal 0.0 - 0.2 E9/L Remisol Heme Eosinophils (Bld) [#/Vol] 0.5 E9/L Normal 0.0 - 0.5 E9/L Remisol Heme Eosinophils/100 WBC (Bld) 4.4 % Normal 0.0 - 8.0 % Remisol Heme Erythrocyte distribution width (RBC) [Ratio] 15.2 % High 10.9 - 14.2 % Remisol Heme Hematocrit (Bld) [Volume fraction] 38.6 % Normal 34.0 - 46.0 % Remisol Heme Hemoglobin (Bld) [Mass/Vol] 12.7 g/dL Normal 12.0 - 16.0 gm/dL Remisol Heme Lymphocytes (Bld) [#/Vol] 2.5 E9/L Normal 1.0 - 4.0 E9/L Remisol Heme Lymphocytes/100 WBC (Bld) 23.7 % Normal 14.0 - 50.0 % Remisol Heme MCH (RBC) [Entitic mass] 29.0 pg Normal 27.0 - 34.0 pg Remisol Heme MCHC (RBC) [Mass/Vol] 33.0 g/dL Normal 31.4 - 36.0 gm/dL Remisol Heme MCV (RBC) [Entitic vol] 88.1 fL Normal 80.0 - 100.0 fL Remisol Heme Monocytes (Bld) [#/Vol] 0.6 E9/L Normal 0.2 - 1.0 E9/L Remisol Heme Monocytes/100 WBC (Bld) 5.8 % Normal 4.0 - 14.0 % Remisol Heme Neutrophils (Bld) [#/Vol] 7.0 E9/L Normal 2.0 - 7.5 E9/L Remisol Heme Neutrophils/100 WBC (Bld) 65.8 % Normal 36.0 - 75.0 % Remisol Heme Platelet 344.0 E9/L Normal 150.0 - 500.0 E9/L Remiso l Heme Platelet mean volume (Bld) [Entitic vol] 8.9 fL Normal 6.4 - 10.8 fL Remisol Heme RBC (Bld) [#/Vol] 4.4 E12/L Normal 4.3 - 5.9 E12/L Re misol Heme WBC corrected for nucl RBC Auto (Bld) [#/Vol] 10.6 E9/L Normal 4.0 - 11.0 E9/L Remisol Heme [id number] 09-25-2023 HbA1c (Bld) [Mass fraction] 5.2 % Normal <=5.9 [facility] Comment on above: Performed By: #### 2 [id number], [id number], [id number], [id number] ####[facility] [address] [place] [address] Patient Educationon 09-25-19 24 Patient Education Nutrition BMI for Adults What is BMI? Body mass index (BMI) is a number that is calculated from a person's weight and height. BMI can help estimate how much of a person's weight is composed of fat. BMI does not measure body fat directly. Rather, it is an alternative to procedures that directly measure body fat, which can be difficult and expensive. BMI can help identify people who may be at higher risk for certain medical problems. What are BMI measurements used for? BMI is used as a screening tool to identify possible weight problems. It helps determine whether a person is obese, overweight, a healthy weight, or underweight. BMI is useful for: ? Identifying a weight problem that may be related to a medical condition or may increase the risk for medical problems. ? Promoting changes, such as changes in diet and exercise, to help reach a healthy weight. BMI screening can be repeated to see if these changes are working. How is BMI calculated? BMI involves measuring your weight in relation to your height. Both height and weight are measured, and the BMI is calculated from those numbers. This can be done either in [place] ([place] or metric measurements. Note that charts and online BMI calculators are available to help you find your BMI quickly and easily without having to do these calculations yourself. To calculate your BMI in [place] measurements: 1. Measure your weight in pounds (lb). 2. Multiply the number of pounds by 703. ? For example, for a person who weighs 180 lb, multiply that number by 703, which equals 126,540. 3. Measure your height in inches. Then multiply that number by itself to get a measurement called inches squared. ? For example, for a person who is 70 inches tall, the inches squared measurement is 70 inches x 70 inches, which equals 4,900 inches squared. 4. Divide the total from step 2 (number of lb x 703) by the total from step 3 (inches squared): 126,540 ? 4,900 = 25.8. This is your BMI. To calculate your BMI in metric measurements: 1. Measure your weight in kilograms (kg). 2. Measure your height in meters (m). Then multiply that number by itself to get a measurement called meters squared. ? For example, for a person who is 1.75 m tall, the meters squared measurement is 1.75 m x 1.75 m, which is equal to 3.1 meters squared. 3. Divide the number of kilograms (your weight) by the meters squared number. In this example: 70 ? 3.1 = 22.6. This is your BMI. What do the results mean? BMI charts are used to identify whether you are underweight, normal weight, overweight, or obese. The following guidelines will be used: ? Underweight: BMI less than 18.5. ? Normal weight: BMI between 18.5 and 24.9. ? Overweight: BMI between 25 and 29.9. ? Obese: BMI of 30 or above. Keep these notes in mind: ? Weight includes both fat and muscle, so someone with a muscular build, such as an athlete, may have a BMI that is higher than 24.9. In cases like these, BMI is not an accurate measure of body fat. ? To determine if excess body fat is the cause of a BMI of 25 or higher, further assessments may need to be done by a health care provider. ? BMI is usually interpreted in the same way for men and women. Where to find more information For more information about BMI, including tools to quickly calculate your BMI, go to these websites: ? Centers for Disease Control and Prevention: www.cdc.gov ? [place] Heart Association: www.heart.org ? National Heart, Lung, and Blood [place]: www.nhlbi.nih.gov Summary ? Body mass index (BMI) is a number that is calculated from a person's weight and height. ? BMI may help estimate how much of a person's weight is composed of fat. BMI can help identify those who may be at higher risk for certain medical problems. ? BMI can be measured using [place]ese measurements or metric measurements. ? BMI charts are used to identify whether you are underweight, normal weight, overweight, or obese. This information is not intended to replace advice given to you by your health care provider. Make sure you discuss any questions you have with your health care provider. Document Revised: 02/11/2020 Document Reviewed: 12/19/2019 [employer] Patient Education ? 2022 [employer] Normal [facility] U Microalbon 09-25-2023 Albumin DL <= 20 mg/L (U) [Mass/Vol] 0.7 mg/dL Normal 0.0-1.9 [facility] Comment on above: Performed By: #### 1 [id number] ####[facility] [address] [place] [address] eGFRon 09-25-2023 eGFR 88 mL/min/1.73 m2 Normal >=59 [facility] Comment on above: Order Comment: Order added by Discern Expert. Performed By: #### 2 [id number], [id number], [id number], [id number] ####[facility] [address] [place] [address] Pre-Certification Formon Pre-Certification Form [id number] 97#[id number] Normal [facility] Consultation Noteon 06-05-19 Consultation Note [id number] BF#1.00TIFF Normal [facility] Office Visiton 02-16-2023 Follow-up visit [id number] Jovana Xie 1970 Date Provider Department Center 02/16/2023 [id number]-QTCWCCLYFLUÍS ARTIS Family History Problem Relation Age of Onset Coronary artery disease Mother Other Mother Family Status - Relation Status Age at Mother Level of Service:99882 NE OFFICE/OUTPATIENT ESTABLISHED MOD MDM 30-39 MIN Normal [facility] Office Visiton 12-20-2022 Follow-up visit [id number] Jovana Xie 1970 F Date Provider Department Center 12/20/2022 [id number]-XUYTNVYBALUÍS DAVIDSON Family History Problem Relation Age of Onset Coronary artery disease Mother Other Mother Family Status - Relation Status Age at Mother Level of Service:92172 NE OFFICE/OUTPATIENT ESTABLISHED MOD MDM 30-39 MIN Reason for Visit and Comments: Follow-up [807910] - 1 month follow up Normal [facility] Office Visiton 11-13-2022 Follow-up visit [id number] Jovana Xie 1970 F Date Provider Department Center 11/13/2022 3848-SILVERIOROMAMATTHEW EVANSMARIISury TENZIN [facility] Family History Problem Relation Age of Onset Coronary artery disease Mother Other Mother Family Status - Relation Status Age at Mother Level of Service:08483 NE OFFICE/OUTPATIENT ESTABLISHED MOD MDM 30-39 MIN Normal [facility] CT LUNG CANCER SCREENINGon 0 10-27-2022 CT LUNG CANCER SCREENING EXAMINATION: CT LUNG CANCER SCREENING HISTORY: Nicotine dependence COMPARISON: No relevant comparison available. TECHNIQUE: Axial, Coronal, and Sagittal images were created without the administration of IV contrast material. Dose reduction techniques were achieved by using automated exposure control and/or adjustment of mA and/or kV according to patient size and/or use of iterative reconstruction technique. FINDINGS: LUNGS: A few calcified granulomas. No suspicious nodules. No infiltrates or significant chronic interstitial changes. PLEURA: No mass, effusion, or pneumothorax. VASCULATURE: No abnormality. NEY: Calcified lymph nodes bilaterally. MEDIASTINUM: Calcified lymph nodes. CARDIAC: No enlargement, pericardial thickening, or significant calcification. AORTA: No aneurysm or dissection. CHEST WALL: No mass or axillary adenopathy BONES: No bone lesion or fracture. LIMITED ABDOMEN: No suspicious findings. Limited images of the upper abdomen. OTHER: Negative. IMPRESSION: 1. Lung-RADS 2- Benign Appearance or Behavior. Nodules with a very low likelihood of becoming a clinically active cancer due to size or lack of growth. Follow-up CT Chest in 1 year. Electronically authenticated by: ALEM PASCUAL Date: 2022-10-27 09:10 Normal [facility] HEMOGLOBINon 10-27-2022 Hemoglobin (Bld) [Mass/Vol] 14.8 g/dL Normal 12.0-16.0 [facility] Comment on above: Performed By: #### H GB #### [facility] [address] [place] [address] Dr. Eron Spencer XR hand BI 3Von 10-11-2022 XR hand BI 3V [facility] [employer] Other XR hand BI 3V [facility] [place] [employer] Other XR hand BI 3V [address] [facility] [employer] Other XR hand [place] [address] [facility] [employer] Other XR hand BI 3V XRay Report Merged with [facility] [employer] Other XR hand BI 3V Signed [email or web address] Other XR hand BI 3V Patient: Jovana Xie MR#: [id number] [place] [employer] Other XR hand BI 3V 585 [email or web address] Other XR hand BI 3V : 1970 Acct:[id number] [place] [employer] Other XR hand BI 3V Age/Sex: 52 / F ADM Date: 10/11/22 [email or web address] Other XR hand BI 3V Loc: [facility]XD Room: Type: [facility] [email or web address] Other XR hand BI 3V Attending Dr: Charu Pham MD [email or web address] Other XR hand BI 3V Copies to: Charu Pham MD [email or web address] Other XR hand BI 3V Ordering Provider: Charu Pham MD [email or web address] Other XR hand BI 3V Date of Service: 10/11/22 [email or web address] Other XR hand BI 3V XR/XR hand BI 3V: Right hand pain [email or web address] Other XR hand BI 3V BILATERAL HANDS - 4 views each [email or web address] Other XR hand BI 3V COMPARISON: None [email or web address] Other XR hand BI 3V CLINICAL DATA: Bilateral hand pain, greatest at the right first carpometacarpal joint. Numbness at [email or web address] Other XR hand BI 3V the left third through fifth fingers. [email or web address] Other XR hand BI 3V AP, lateral, oblique and supplemental AP views of the thumbs were obtained. There are no acute [email or web address] Other XR hand BI 3V fractures or dislocation. No disproportionate joint space narrowing or prominent hypertrophy is [email or web address] Other XR hand BI 3V seen. There are no focal soft tissue abnormalities. [email or web address] Other XR hand BI 3V XR/XR hand BI 3V [email or web address] Other XR hand BI 3V IMPRESSION: [employer] Other XR hand BI 3V NO ACUTE BONY FINDINGS. [email or web address] Other XR hand BI 3V Impression dictated by: Daina Downs M.D.10/11/2022 2:43 PM [email or web address] Other XR hand BI 3V Dictation Location: [place] [address] [email or web address] Other XR hand BI 3V Transcribed By: DEANGELO 10/11/22 [facility] [email or web address] Other XR hand BI 3V Dictated By: Daina Downs MD 10/11/22 [facility] [email or web address] Other XR hand BI 3V Signed By: [email or web address] Other XR hand BI 3V 10/11/22 [facility] [employer] Other XR cerv spine AP/LAT/FLX/EXT on 06-21-2022 XR cerv spine AP/LAT/FLX/EXT [facility] [email or web address] Other XR cerv spine AP/LAT/FLX/EXT [facility] [address] [email or web address] Other XR cerv spine AP/LAT/FLX/EXT [address] [place] [address] [email or web address] Other XR cerv spine AP/LAT/FLX/[place] [address] [email or web address] Other XR cerv spine AP/LAT/FLX/EXT XRay Report [email or web address] Other XR cerv spine AP/LAT/FLX/EXT Signed [email or web address] Other XR cerv spine AP/LAT/FLX/EXT Patient: Jovana Xie MR#: [id number] [email or web address] Other XR cerv spine AP/LAT/FLX/EXT 585 [email or web address] Other XR cerv spine AP/LAT/FLX/EXT : 1970 Acct:[id number] [email or web address] Other XR cerv spine AP/LAT/FLX/EXT Age/Sex: 52 / F ADM Date: 06/21/22 [email or web address] Other XR cerv spine AP/LAT/FLX/EXT Loc: SOXD Room: Type: [facility] [email or web address] Other XR cerv spine AP/LAT/FLX/EXT Attending Dr: Charu Pham MD [email or web address] Other XR cerv spine AP/LAT/FLX/EXT Copies to: Charu Pham MD [email or web address] Other XR cerv spine AP/LAT/FLX/EXT Ordering Provider: Charu Pham MD [email or web address] Other XR cerv spine AP/LAT/FLX/EXT Date of Service: 06/21/22 [email or web address] Other XR cerv spine AP/LAT/FLX/EXT XR/XR cerv spine AP/LAT/FLX/EXT: Numbness of left hand [email or web address] Other XR cerv spine AP/LAT/FLX/EXT AP with lateral neutral, flexion extension views of the cervical spine [email or web address] Other XR cerv spine AP/LAT/FLX/EXT HISTORY: Cervical spine pain. Numbness and tingling of the arms [email or web address] Other XR cerv spine AP/LAT/FLX/EXT COMPARISON: None [email or web address] Other XR cerv spine AP/LAT/FLX/EXT Cervical lordosis is adequate. [email or web address] Other XR cerv spine AP/LAT/FLX/EXT No acute cervical spine fracture identified. [email or web address] Other XR cerv spine AP/LAT/FLX/EXT No cervical spine listhesis identified. [email or web address] Other XR cerv spine AP/LAT/FLX/EXT Disc spaces are adequate. [email or web address] Other XR cerv spine AP/LAT/FLX/EXT Facets are in adequate alignment. [email or web address] Other XR cerv spine AP/LAT/FLX/EXT No hypermobility with flexion and extension views. [email or web address] Other XR cerv spine AP/LAT/FLX/EXT The dens is intact. [email or web address] Other XR cerv spine AP/LAT/FLX/EXT The craniocervical junction is unremarkable. [email or web address] Other XR cerv spine AP/LAT/FLX/EXT No paraspinal soft tissue abnormality seen. Benign posterior soft tissue calcification at C7 level. [email or web address] Other XR cerv spine AP/LAT/FLX/EXT XR/XR cerv spine AP/LAT/FLX/EXT [email or web address] Other XR cerv spine AP/LAT/FLX/EXT IMPRESSION: No hypermobility. No acute cervical spine fracture. [email or web address] Other XR cerv spine AP/LAT/FLX/EXT Impression dictated by: Devin Norwood M.D.06/21/2022 3:15 PM [email or web address] Other XR cerv spine AP/LAT/FLX/EXT Dictation Location: [facility]-- [email or web address] Other XR cerv spine AP/LAT/FLX/EXT Transcribed By: PWS 06/21/22 8527 [email or web address] Other XR cerv spine AP/LAT/FLX/EXT Dictated By: Devin Norwood DO 06/21/22 7772 [email or web address] Other XR cerv spine AP/LAT/FLX/EXT Signed By: [email or web address] Other XR cerv spine AP/LAT/FLX/EXT 06/21/22 7340 [email or web address] Other PAP ACOG PANEL 2: 30 to 65on 12-06-2021 . . Normal [facility] Comment on above: Result Comment: Perf ormed at: WB Performed By: #### 4 [id number] #### [facility] [address] [place] [address] Dr. Eron Spencer Age Gdln ACOG Testing 30-65 Normal [facility] Comment on above: Performed By: #### 4 [id number] #### [facility] [address] [place] [address] Dr. Eron Spencer DIAGNOSIS: Comment Normal [facility] Comment on above: Result Comment: NEGA TIVE FOR INTRAEPITHELIAL LESION OR MALIGNANCY. THIS SPECIMEN WAS RESCREENED PART OF OUR MAINTENANCE PAINTER PROGRAM. Performed at: WB Performed By: #### 4 [id number] #### [facility] [address] [place] [address] [address] Eron Spencer HPV Aptima Negative Normal Negative [facility] Comment on above: Result Comment: This nucleic acid amplification test detects fourteen high-risk HPV types (16,18,31,33,35,39,45,51,52,56,58,59,66,68) without differentiation. Performed at: =G Performed By: #### 4 [id number] #### [facility] [address] [place] [address] Dr. Eron Spencer Methodology: Comment Normal [facility] Comment on above: Result Comment: This liquid based ThinPrep(R) pap test was screened with the use of an image guided system. Performed at: WB Performed By: #### 4 [id number] #### [facility] [address] [place] [address] Dr. Eron Spencer Note: Comment Normal [facility] Comment on above: Result Comment: The Pap smear is a screening test designed to aid in the detection of premalignant and malignant conditions of the uterine cervix. It is not a diagnostic procedure and should not be used as the sole means of detecting cervical cancer. Both false-positive and false-negative reports do occur. . Performed at: WB Performed By: #### 4 [id number] #### [facility] [address] [place] [address] Dr. Eron Spencer Performed by: Comment Normal [facility] Comment on above: Result Comment: Kimberly Duarte, Multi Slide Machine Tender (ASCP) Performed at: WB Performed By: #### [id number] #### [facility] [address] [place] [address] Dr. Eron Spencer QC reviewed by: Comment Normal [facility] Comment on above: Result Comment: Israel Velazquez, Supervisory Multi Slide Machine Tender (ASCP) Performed at: WB Performed By: #### [id number] #### [facility] [address] [place] [address] Dr. Eron Spencer Specimen adequacy: Comment Normal [facility] Comment on above: Result Comment: Sati sfactory for evaluation. No endocervical component is identified. Performed at: WB Performed By: #### [id number] #### [facility] [address] [place] [address] Dr. Eron Spencer MG MAMM SCREEN 3D ARMAAN CADon 12-01-2021 MG MAMM SCREEN 3D ARMAAN CAD Patient: JOVANA XIE Exam Date: 12/01/2021 : 1970 Gender:F Ordering : DR ELVIA SWEENEY . Admission #: [id number] Family : Order #: [id number] CLICK HERE TO VIEW EXAM RADIOLOGY REPORT PROCEDURE: MAMMOGRAM SCREENING 3D BILATERAL CAD COMPARISON: DIGITIZED_MAMMO, 04/15/2010. MG MAMM SCREEN ARMAAN W CAD, 09/19/2016. INDICATIONS: Screening mammography Calculator Name NCI Breast Cancer Risk Assessment Tool 5 Year Breast Cancer Risk 0.90% Lifetime Breast Cancer Risk 8.80% Personal Breast Cancer No Personal Ovarian Cancer No Treatments None Family Cancers None LOCATION: [facility] BREAST COMPOSITION: Heterogeneously dense,which may obscure small masses. FINDINGS: DIAGNOSTIC CATEGORY 1--NEGATIVE. NO CHANGE FROM COMPARISON ASSESSMENT. Scattered benign-appearing calcifications are present. Scattered benign-appearing lymph nodes are present. RIGHT BREAST: No significant suspicious finding. LEFT BREAST: No significant suspicious finding. Stable focal asymmetry upper outer quadrant, posterior breast RECOMMENDATIONS: ROUTINE MAMMOGRAM AND CLINICAL EVALUATION IN 12 MONTHS. PLEASE NOTE: A NORMAL MAMMOGRAM DOES NOT EXCLUDE THE POSSIBILITY OF BREAST CANCER. A CLINICALLY SUSPICIOUS PALPABLE LUMP SHOULD BE BIOPSIED. Dictated by: Eulalia Sanderson MD on 12/01/2021 at 11:29 Approved by: Eulalia Sanderson MD on 12/01/2021 at 11:45 Normal [facility] CBC AUTO DIFFon 11-30-2021 BASO # 0.0 103/ul Normal 0.0-0.1 [facility] Comment on above: Performed By: #### L IPID, CMP #### [facility] [address] [address] [address] Eron Spencer Basophils/100 WBC (Bld) 0.4 % Normal 0.2-2.0 [facility] Comment on above: Performed By: #### L IPID, CMP #### [facility] [address] [address] [address] Eron Spencer EO # 0.2 103/ul Normal 0.0-0.7 [facility] Comment on above: Performed By: #### L IPID, CMP #### [facility] [address] [address] [address] Eron Spencer Eosinophils/100 WBC (Bld) 2.0 % Normal 0.9-7.0 [facility] Comment on above: Performed By: #### L IPID, CMP #### [facility] [address] [address] [address] Eron Spencer Erythrocyte distribution width (RBC) [Ratio] 14.0 % Normal 11.0-15.0 [facility] Comment on above: Performed By: #### L IPID, CMP #### [facility] [address] [place] [address] Dr. Eron Spencer Hematocrit (Bld) [Volume fraction] 46.7 % Normal 36.0-48.0 [facility] Comment on above: Performed By: #### L IPID, CMP #### [facility] [address] [place] [address] Dr. Eron Spencer Hemoglobin (Bld) [Mass/Vol] 15.3 g/dL Normal 12.0-16.0 [facility] Comment on above: Performed By: #### L IPID, CMP #### [facility] [address] [place] [address] Dr. Eron Spencer IG # 0.03 10e3/ul Normal 0.00-0.03 [facility] Comment on above: Performed By: #### L IPID, CMP #### [facility] [address] [place] [address] Dr. Erno Spencer IG % 0.3 % Normal 0.0-0.5 [facility] Comment on above: Performed By: #### L IPID, CMP #### [facility] [address] [place] [address] Dr. Eron Spencer LYMPH # 2.7 103/ul Normal 1.2-3.8 [facility] Comment on above: Performed By: #### L IPID, CMP #### [facility] [address] [place] [address] Dr. Eron Spencer Lymphocytes/100 WBC (Bld) 29.7 % Normal 20.5-60.0 [facility] Comment on above: Performed By: #### L IPID, CMP #### [facility] [address] [place] [address] Dr. Eron Spencer MANUAL DIFF REQ NO Normal [facility] Comment on above: Performed By: #### L IPID, CMP #### [facility] [address] [place] [address] Dr. Eron Spencer MCH (RBC) [Entitic mass] 27.7 pg Normal 26.7-34.0 [facility] Comment on above: Performed By: #### L IPID, CMP #### [facility] [address] [place] [address] Dr. Eron Spencer MCHC (RBC) [Mass/Vol] 32.8 g/dL Normal 29.9-35.2 [facility] Comment on above: Performed By: #### L IPID, CMP #### [facility] [address] [place] [address] Dr. Eron Spencer MCV (RBC) [Entitic vol] 84.6 fL Normal 81.0-99.0 [facility] Comment on above: Performed By: #### L IPID, CMP #### [facility] [address] [place] [address] Dr. Eron Spencer MONO # 0.6 103/ul Normal 0.3-0.8 [facility] Comment on above: Performed By: #### L IPID, CMP #### [facility] [address] [place] [address] Dr. Eron Spencer Monocytes/100 WBC (Bld) 7.0 % Normal 1.7-12.0 [facility] Comment on above: Performed By: #### L IPID, CMP #### [facility] [address] [place] [address] Dr. Eron Spencer NEUT # 5.4 103/ul Normal 1.4-6.5 [facility] Comment on above: Performed By: #### L IPID, CMP #### [facility] [address] [place] [address] Dr. Eron Spencer Neutrophils/100 WBC (Bld) 60.6 % Normal 43.0-75.0 [facility] Comment on above: Performed By: #### L IPID, CMP #### [facility] [address] [place] [address] Dr. Eron Spencer Platelet mean volume (Bld) [Entitic vol] 10.1 fL Normal 9.5-13.5 [facility] Comment on above: Performed By: #### L IPID, CMP #### [facility] [address] [address] [address] Eron Spencer PLT 297 103/ul Normal 150-450 [facility] Comment on above: Performed By: #### L IPID, CMP #### [facility] [address] [place] [address] Dr. Eron Spencer RBC 5.52 106/ul Critically high 4.20-5.40 [facility] Comment on above: Performed By: #### L IPID, CMP #### [facility] [address] [place] [address] Dr. Eron Spencer WBC 9.0 103/ul Normal 4.0-11.0 [facility] Comment on above: Performed By: #### L IPID, CMP #### [facility] [address] [place] [address] Dr. Eron Spencer GLYCOHEMOGLOBIN A1Con 2021 ADA RECOMMENDATION SEE BELOW Normal [facility] Comment on above: Result Comment: ADA RECOMMENDED LIMIT 4.0 - 6.0 ADA THERAPEUTIC TARGET < 7.0 ACTION SUGGESTED > 7.0 Performed By: #### A 1C #### [facility] [address] [place] [address] Dr. Eron Spencer Glucose [Mass/Vol] 117 mg/dL Normal [facility] Comment on above: Performed By: #### A 1C #### [facility] [address] [place] [address] Dr. Eron Spencer HbA1c (Bld) [Mass fraction] 5.7 % Normal 4.5-6.2 [facility] Comment on above: Performed By: #### A 1C #### [facility] [address] [place] [address] Dr. Eron Spencer LIPID PROFILEon 11-30-2021 CHOL-HDL RATIO NORM SEE BELOW Normal [facility] Comment on above: Result Comment: 3.3 - 4.4 LOW RISK 4.4 - 7.1 AVERAGE RISK 7.1 - 11.0 MODERATE RISK >11.0 HIGH RISK Performed By: #### L IPID, CMP #### [facility] [address] [place] [address] Dr. Eron Spencer Cholesterol [Mass/Vol] 187 mg/dL Normal <=200 [facility] Comment on above: Performed By: #### L IPID, CMP #### [facility] [address] [address] [address] Eron Spencer Cholesterol in HDL [Mass/Vol] 42 mg/dL Normal 40-60 [facility] Comment on above: Performed By: #### L IPID, CMP #### [facility] [address] [address] [address] Eron Spencer Cholesterol in LDL [Mass/Vol] 127.4 mg/dL Normal [facility] Comment on above: Performed By: #### L IPID, CMP #### [facility] [address] [address] [address] Eron Spencer Cholesterol.total/ Cholesterol in HDL [Mass ratio] 4.5 {ratio} Normal [facility] Comment on above: Performed By: #### L IPID, CMP #### [facility] [address] [address] [address] Eron Spencer HDL NORMAL > or = 60 mg/dl - LOW CARDIOVASCULAR RISK <40 mg/dl - HIGH CARDIOVASCULAR RISK Normal [facility] Comment on above: Performed By: #### L IPID, CMP #### [facility] [address] [place] [address] Dr. Eron Spencer LDL CALC NORMAL SEE BELOW Normal [facility] Comment on above: Result Comment: <100 mg/dl OPTIMAL 100 - 129 mg/dl NEAR OR ABOVE OPTIMAL 130 - 159 mg/dl BORDERLINE HIGH 160 - 189 mg/dl HIGH >190 mg/dl VERY HIGH Performed By: #### L IPID, CMP #### [facility] [address] [address] [address] Eron Spencer Triglyceride [Mass/Vol] 88 mg/dL Normal <=150 [facility] Comment on above: Performed By: #### L IPID, CMP #### [facility] [address] [address] [address] Eron Spencer VLDL CALC 17.6 mg/dL Normal [facility] Comment on above: Performed By: #### L IPID, CMP #### [facility] [address] [address] [address] Eron Spencer PROF 14(COMP METB)on 022 Albumin [Mass/Vol] 3.3 g/dL Critically low 3.4-5.0 [facility] Comment on above: Performed By: #### L IPID, CMP #### [facility] [address] [address] [address] Eron Spencer Albumin/Globulin [Mass ratio] 0.8 {ratio} Normal [facility] Comment on above: Performed By: #### L IPID, CMP #### [facility] [address] [address] [address] Eron Spencer ALP [Catalytic activity/Vol] 132 U/L Critically high 46-116 [facility] Comment on above: Performed By: #### L IPID, CMP #### [facility] [address] [address] [address] Eron Spencer ALT [Catalytic activity/Vol] 79 U/L Critically high 14-59 [facility] Comment on above: Performed By: #### L IPID, CMP #### [facility] [address] [place] [address] Dr. Eron Spencer Anion gap [Moles/Vol] 15.4 mmol/L Normal [facility] Comment on above: Performed By: #### L IPID, CMP #### [facility] [address] [address] [address] Eron Spencer AST [Catalytic activity/Vol] 44 U/L Critically high 15-37 [facility] Comment on above: Performed By: #### L IPID, CMP #### [facility] [address] [address] [address] Eron Spencer Bilirubin [Mass/Vol] 0.6 mg/dL Normal 0.2-1.0 [facility] Comment on above: Performed By: #### L IPID, CMP #### [facility] [address] [address] [address] Eron Spencer Calcium [Mass/Vol] 9.0 mg/dL Normal 8.5-10.1 [facility] Comment on above: Performed By: #### L IPID, CMP #### [facility] [address] [place] [address] Dr. Eron Spencer Chloride [Moles/Vol] 102 mmol/L Normal 98-107 [facility] Comment on above: Performed By: #### L IPID, CMP #### [facility] [address] [place] [address] Dr. Eron Spencer CO2 [Moles/Vol] 24.5 mmol/L Normal 21.0-32.0 [facility] Comment on above: Performed By: #### L IPID, CMP #### [facility] [address] [place] [address] Dr. Eron Spencer Creatinine [Mass/Vol] 0.90 mg/dL Normal 0.55-1.02 [facility] Comment on above: Performed By: #### L IPID, CMP #### [facility] [address] [place] [address] Dr. Eron Spencer EGFR-AF MONTENEGRIN >80 Normal >=60 [facility] Comment on above: Performed By: #### L IPID, CMP #### [facility] [address] [place] [address] Dr. Eron Spencer EGFR-NON AF MONTENEGRIN >66 Normal >=60 [facility] Comment on above: Performed By: #### L IPID, CMP #### [facility] [address] [place] [address] Dr. Eron Spencer Globulin (S) [Mass/Vol] 4.1 g/dL Normal [facility] Comment on above: Performed By: #### L IPID, CMP #### [facility] [address] [place] [address] Dr. Eron Spencer Glucose [Mass/Vol] 96 mg/dL Normal 74-106 [facility] Comment on above: Performed By: #### L IPID, CMP #### [facility] [address] [place] [address] Dr. Eron Spencer Potassium [Moles/Vol] 3.9 mmol/L Normal 3.5-5.1 [facility] Comment on above: Performed By: #### L IPID, CMP #### [facility] [address] [place] [address] Dr. Eron Spencer Protein [Mass/Vol] 7.4 g/dL Normal 6.4-8.2 [facility] Comment on above: Performed By: #### L IPID, CMP #### [facility] [address] [place] [address] Dr. Eron Spencer Sodium [Moles/Vol] 138 mmol/L Normal 136-145 [facility] Comment on above: Performed By: #### L IPID, CMP #### [facility] [address] [place] [address] Dr. Eron Spencer Urea nitrogen [Mass/Vol] 12.0 mg/dL Normal 7.0-18.0 [facility] Comment on above: Performed By: #### L IPID, CMP #### [facility] [address] [place] [address] Dr. Eron Spencer Urea nitrogen/Creatinin e [Mass ratio] 13.3 mg/mg Normal [facility] Comment on above: Performed By: #### L IPID, CMP #### [facility] [address] [place] [address] Dr. Eron Spencer VITAMIN D 25 OHon 11-30-2021 VIT D 25-OH 35.6 ng/mL Normal [facility] Comment on above: Performed By: #### L IPID, CMP #### [facility] [address] [place] [address] Dr. Eron Spencer VIT D RANGES SEE BELOW Normal [facility] Comment on above: Result Comment: <20 ng/mL Vit D deficient 20 - <30 ng/mL Vit D insufficient 30 - 100 ng/mL Vit D sufficient >100 ng/mL Potential Toxicity Performed By: #### L IPID, CMP #### [facility] [address] [place] [address] Dr. Eron Spencer GROUP A STREP CULTUREon 11-03 S. pyogenes Ag Ql (Unsp spec) Culture Observations: NEGATIVE FOR GROUP A STREPTOCOCCUS. Normal [facility] Comment on above: Performed By: #### L IPID, CMP #### [facility] [address] [address] [address] Eron Spencer STREPT SCREENon 11-25-2021 STREP SCREEN A Negative Normal NEGATIVE [facility] Comment on above: Performed By: #### S SCRN, GRASTCX #### [facility] [address] [id number] Eron Spencer XR CHEST 1 Von 11-25-2021 XR CHEST 1 V EXAM: XR CHEST 1 V HISTORY: COUGH EXAM: XR CHEST 1 V INDICATION: 51 years old Female COUGH COMPARISON: September 14, 2021 FINDINGS: The cardiac silhouette is normal. There is no pulmonary edema. The lungs are clear. There is no pneumonia. There is no pneumothorax. There is no abnormal foreign body. IMPRESSION: There is no acute abnormality. Electronically authenticated by: CAITLYN WATTS Date: 2021-11-25 15:41 Normal [facility] Covid-19 PCR (CVDTB)on 11-03 SARS-CoV-2 (COVID-19) RNA SAVANNAH+probe Ql (Unsp spec) Not detected Normal NOT DETECTED [facility] Comment on above: Result Comment: This test is not yet approved or cleared by the [place] FDA. When there are no FDA-approved or cleared tests available, and other criteria are met, FDA can make tests available under an emergency access mechanism called an Emergency Use Authorization (EUA). The EUA for this test is supported by the [place] of Health and Human Service's (HHS's) declaration that circumstances exist to justify the emergency use of in vitro diagnostics for the detection and/or diagnosis of the virus that causes COVID-19. This EUA will remain in effect (meaning this test can be used) for the duration of the COVID-19 declaration justifying emergency of IVDs, unless it is terminated or revoked by FDA (after which the test may no longer be used). When diagnostic testing is negative, the possibility of a false negative should be considered in the context of a patient's recent exposures and the presence of clinical signs and symptoms consistent with SARS-CoV-2. Performed By: #### L IPID, CMP #### [facility] [address] [address] [address] Eron Spencer Glucose Glucometer (BldC) [M ass/Vol]Ordered By: Charu Pham on 09-22-2021 Glucose [Mass/Vol] 97 mg/dL [facility] Comment on above: Random Glucose Refer ence Range is dependent on time and content of last meal. Glucose of more than 200 mg/dL in a nonstressed, ambulatory subject supports the diagnosis of Diabetes Mellitus. COVID-19 Positive/NegativeOr dered By: Charu Pham on 09-20-2021 SARS-CoV-2 (COVID-19) N gene SAVANNAH+probe Ql (Resp) Negative Negative [facility] Comment on above: Testing for SARS-CoV -2 by RT-PCRThis test was developed and its performance characteristics determined by [employer] and validated at the [facility]. This test has not been FDA cleared or approved. This test has been authorized by FDA under an Emergency Use Authorization (EUA). This test has been validated in accordance with the FDA's Guidance Document (Policy for Diagnostics Testing in Laboratories Certified to Perform High Complexity Testing under CLIA prior to Emergency Use Authorization for Coronavirus Disease-2019 during the Public Health Emergency) issued on September 04, 2019. This test is only authorized for the duration of time the declaration that circumstances exist justifying the authorization of the emergency use of in vitro diagnostic tests for detection of SARS-CoV-2 virus and/or diagnosis of COVID-19 infection under section 564(b)(1) of the Act, 21 U.S.C. 360bbb-3(b)(1), unless the authorization is terminated or revoked sooner. Basophils Auto (Bld) [#/Vol] Ordered By: Charu Pham on 09-15-2021 Basophils (Bld) [#/Vol] 0.1 10*3/uL 0.0-0.2 [facility] Basophils/100 WBC Auto (Bld) Ordered By: Charu Pham on 09-15-2021 Basophils/100 WBC (Bld) 0.6 % [facility] Blood hemoglobin measurement (mass/volume)Ordered By: Charu Pham on 09-15-2021 Hemoglobin (Bld) [Mass/Vol] 13.7 g/dL 11.8-15.4 [facility] Blood leukocytes automated c ount (number/volume)Ordered By: Charu Pham on 09-15-2021 WBC (Bld) [#/Vol] 9.4 10*3/uL 4.5-11.0 [facility] Body fluid albumin measureme nt (mass/volume)Ordered By: Charu Pham on 09-15-2021 Albumin (Body fld) [Mass/Vol] 3.0 g/dL 3.2-5.5 [facility] Creatinine and Glomerular fi ltration rate.predicted panel (S/P/Bld)Ordered By: Charu Pham on 09-15-2021 Creatinine [Mass/Vol] 0.82 mg/dL 0.44-1.03 [facility] Eosinophils Auto (Bld) [#/Vo l]Ordered By: Charu Pham on 09-15-2021 Eosinophils (Bld) [#/Vol] 0.3 10*3/uL 0.0-0.45 [facility] Eosinophils/100 WBC Auto (Bl d)Ordered By: Charu Pham on 09-15-2021 Eosinophils/100 WBC (Bld) 3.1 % [facility] Erythrocyte distribution wid th Auto (RBC) [Ratio]Ordered By: Charu Pham on 09-15-2021 Erythrocyte distribution width (RBC) [Ratio] 15.0 % 11.9-15.3 [facility] Estimated glomerular filtrat ion rate (GFR) non- AmericanOrdered By: Charu Pham on 09-15-2021 GFR/1.73 sq M.predicted among non-blacks MDRD (S/P/Bld) [Vol rate/Area] > 60 mL/Min [facility] Globulin Calc (S) [Mass/Vol] Ordered By: Charu Pham on 09-15-2021 Globulin (S) [Mass/Vol] 2.9 g/dL [facility] Hematocrit Auto (Bld) [Volum e fraction]Ordered By: Charu Pham on 09-15-2021 Hematocrit (Bld) [Volume fraction] 40.8 % 34.0-46.4 [facility] Laboratory - Hematology and Cell countsOrdered By: Charu Pham on 09-15-2021 Nucleated RBC/100 WBC (Bld) [Ratio] 0.0 % 0-0.5 [facility] Lymphocytes Auto (Bld) [#/Vo l]Ordered By: Charu Pham on 09-15-2021 Lymphocytes (Bld) [#/Vol] 2.3 10*3/uL 1.00-4.8 [facility] Lymphocytes/100 WBC Auto (Bl d)Ordered By: Charu Pham on 09-15-2021 Lymphocytes/100 WBC (Bld) 24.5 % [facility] MCH Auto (RBC) [Entitic mass ]Ordered By: Charu Pham on 09-15-2021 MCH (RBC) [Entitic mass] 28.4 pg 24.7-34.3 [facility] MCHC Auto (RBC) [Mass/Vol]Or dered By: Charu Pham on 09-15-2021 MCHC (RBC) [Mass/Vol] 33.6 g/dL 32.0-35.0 [facility] MCV Auto (RBC) [Entitic vol] Ordered By: Charu Pham on 09-15-2021 MCV (RBC) [Entitic vol] 84.6 fL 80-100 [facility] Monocytes Auto (Bld) [#/Vol] Ordered By: Charu Pham on 09-15-2021 Monocytes (Bld) [#/Vol] 0.9 10*3/uL 0.0-0.8 [facility] Monocytes/100 WBC Auto (Bld) Ordered By: Charu Pham on 09-15-2021 Monocytes/100 WBC (Bld) 9.7 % [facility] Neutrophils Auto (Bld) [#/Vo l]Ordered By: Charu Pham on 09-15-2021 Neutrophils (Bld) [#/Vol] 5.9 10*3/uL 1.8-7.7 [facility] Neutrophils/100 WBC Auto (Bl d)Ordered By: Charu Pham on 09-15-2021 Neutrophils/100 WBC (Bld) 62.1 % [facility] No Panel InformationOrdered By: Charu Pham on 09-15-2021 Estimated GFR () > 60 mL/Min [facility] Comment on above: GFR estimated refere nce range: According to KDOQI guidelines, <60 ml/min/1.73m2 is sufficient to diagnose a patient with chronic kidney disease. Pharmacy Creatinine Clearance (Chem N/A [facility] Platelet mean volume Auto (B ld) [Entitic vol]Ordered By: Charu Pham on 09-15-2021 Platelet mean volume (Bld) [Entitic vol] 9.1 fL 6.3-10.7 [facility] Platelets Auto (Bld) [#/Vol] Ordered By: Charu Pham on 09-15-2021 Platelets (Bld) [#/Vol] 285 10*3/uL 150-450 [facility] Protein [Mass/volume] in Ser um or PlasmaOrdered By: Charu Pham on 09-15-2021 Protein [Mass/Vol] 5.9 g/dL 6.1-7.9 [facility] RBC Auto (Bld) [#/Vol]Ordere d By: Charu Pham on 09-15-2021 RBC (Bld) [#/Vol] 4.82 10*6/uL 3.60-5.00 [facility] Serum or plasma alanine martinez otransferase measurement without P-5'-P (enzymatic activiOrdered By: Charu Pham on 09-15-2021 ALT No additional P-5'-P [Catalytic activity/Vol] 59 U/L 10-60 [facility] Serum or plasma albumin/glob ulin mass ratioOrdered By: Charu Pham on 09-15-2021 Albumin/Globulin [Mass ratio] 1.0 {ratio} [facility] Serum or plasma alkaline sera sphatase measurement (enzymatic activity/volume)Ordered By: Charu Pham on 09-15-2021 ALP [Catalytic activity/Vol] 90 U/L 32-92 [facility] Serum or plasma aspartate am inotransferase measurement (enzymatic activity/volume)Ordered By: Charu Pham on 09-15-2021 AST [Catalytic activity/Vol] 40 U/L 10-42 [facility] Serum or plasma calcium khurram urement (mass/volume)Ordered By: Charu Pham on 09-15-2021 Calcium [Mass/Vol] 8.9 mg/dL 8.2-10.2 [facility] Serum or plasma chloride rae surement (moles/volume)Ordered By: Charu Pham on 09-15-2021 Chloride [Moles/Vol] 105 mmol/L 95-114 [facility] Serum or plasma glucose khurram urement (mass/volume)Ordered By: Charu Pham on 09-15-2021 Glucose [Mass/Vol] 94 mg/dL 70-100 [facility] Comment on above: ADA recommended refe rence rangeRandom Glucose Reference Range is dependent on time and content of last meal. Glucose of more than 200 mg/dL in a nonstressed, ambulatory subject supports the diagnosis of Diabetes Mellitus. Serum or plasma potassium me asurement (moles/volume)Ordered By: Charu Pham on 09-15-2021 Potassium [Moles/Vol] 4.3 mmol/L 3.5-5.1 [facility] Serum or plasma sodium measu rement (moles/volume)Ordered By: Charu Pham on 09-15-2021 Sodium [Moles/Vol] 140 mmol/L 136-146 [facility] Serum or plasma total biliru bin measurement (mass/volume)Ordered By: Charu Pham on 09-15-2021 Bilirubin [Mass/Vol] 0.6 mg/dL 0.3-1.2 [facility] Serum or plasma total carbon dioxide measurement (moles/volume)Ordered By: Charu Pham on 09-15-2021 CO2 [Moles/Vol] 25.2 mmol/L 22.0-30.0 [facility] Serum or plasma urea nitroge n measurement (mass/volume)Ordered By: Charu Pham on 09-15-2021 Urea nitrogen [Mass/Vol] 11 mg/dL 02-24 [facility] Bhumi 04-26-2021 KARLA Telephone (JACOBO) ---- JOVANA XIE ([id number]) 1970 F Date Time Provider Department 04/26/21 MAEGAN ANGULO During your visit today, we recorded the following information about you: Calli Wu Jj 04/26/2021 10:21 AM Signed Patient called to follow up on records to see if they had been received. Informed patient that they are not in her chart at this time. Encouraged patient to have records sent to [phone]. Calli L Jj Martinezaliyah Wu Jj 04/26/2021 11:57 AM Signed Records received and placed on Maris Ramirez's desk for review. Calli Wu Jj Allergies As of Date: 04/26/2021 Noted Allergy Reaction DEXAMETHASONE 12/10/2020 8 - GI Upset Comments: HAIR LOSS PENICILLINS 12/10/2020 14 - Other: See Comments Comments: HIGH FEVER-CHILLS Date Reviewed: 02/10/2021 Reviewed by: Maris Ramirez, CESAR.ASPHALT ENGINEER - Fully Assessed Reason for Visit: Nurse Triage Call [185] Prescriptions as of 04/26/2021 - albuterol (PROVENTIL) 2.5 mg /3 mL (0.083 %) nebulizer solution Albuterol Sulfate Active 1 INH Inhalation EVERY 4-6 HOURS February 14, 2018 11:07am - SYMBICORT 160-4.5 mcg/actuation inhaler Inhale 2 Puffs as instructed twice daily. - dicyclomine (BENTYL) 20 mg tablet TAKE 1 TABLET BY MOUTH EVERY 6 HOURS NEEDED FOR ABDOMINAL PAIN - famotidine (PEPCID) 40 mg tablet Famotidine Active 40 MG Oral Daily February 14, 2018 11:07am - gabapentin (NEURONTIN) 100 mg capsule Take 100 mg by mouth three times daily. - metFORMIN (GLUCOPHAGE) 500 mg tablet Metformin Active 500 MG Oral Daily February 14, 2018 11:07am - metoclopramide HCl (REGLAN) 10 mg tablet Take 10 mg by mouth every 6 hours as needed. - montelukast (SINGULAIR) 10 mg tablet Take 10 mg by mouth once daily. - nystatin (MYCOSTATIN) powder APPLY TO AFFECTED AREA 4 TIMES A DAY NEEDED - sertraline (ZOLOFT) 25 mg tablet TAKE 1 TABLET BY MOUTH EVERY DAY IN THE MORNING - SUMAtriptan (IMITREX) 100 mg tablet TAKE 1 TAB AT ONSET OF MIGRAINE,MAY REPEAT IN 2 HRS MAX 2 TABS/DAY, 2 TIMES A WEEK - topiramate (TOPAMAX) 25 mg tablet Take 25 mg by mouth twice daily. Problem List As Of Date 04/26/2021 Noted Resolved Obesity, Class III, BMI >= 40 [E66.01] 12/10/2020 Encounter Status:Closed by CALLI LIVE on 04/26/21 [facility] Bhumi 02-11-2021 KARLA Telephone (PAINMN) ---- JOVANA XIE ([id number]) 1970 F Date Time Provider Department 02/11/21 MARIS RAMIREZ During your visit today, we recorded the following information about you: Maris Ramirez APRN.ASPHALT ENGINEER 02/11/2021 7:37 AM Signed Please advise patient we received a fax from [facility]. It was the discharge page after her MRI. This is not what I had asked her to send. We need the procedure notes from her pain physician to see what procedures she has had done in the past. Thanks, LITTLE Steel APRN.CNP 02/11/2021 7:40 AM Signed Her provider in [place] is [facility]. Also need the EMG. Thanks, Maris Ramirez APRN.ILEANA Allergies As of Date: 02/11/2021 Noted Allergy Reaction DEXAMETHASONE 12/10/2020 8 - GI Upset Comments: HAIR LOSS PENICILLINS 12/10/2020 14 - Other: See Comments Comments: HIGH FEVER-CHILLS Date Reviewed: 02/10/2021 Reviewed by: Maris Ramirez APRN.ASPHALT ENGINEER - Fully Assessed Reason for Visit: Patient Update [1234] Prescriptions as of 02/11/2021 - albuterol (PROVENTIL) 2.5 mg /3 mL (0.083 %) nebulizer solution Albuterol Sulfate Active 1 INH Inhalation EVERY 4-6 HOURS February 14, 2018 11:07am - SYMBICORT 160-4.5 mcg/actuation inhaler Inhale 2 Puffs as instructed twice daily. - dicyclomine (BENTYL) 20 mg tablet TAKE 1 TABLET BY MOUTH EVERY 6 HOURS NEEDED FOR ABDOMINAL PAIN - famotidine (PEPCID) 40 mg tablet Famotidine Active 40 MG Oral Daily February 14, 2018 11:07am - gabapentin (NEURONTIN) 100 mg capsule Take 100 mg by mouth three times daily. - metFORMIN (GLUCOPHAGE) 500 mg tablet Metformin Active 500 MG Oral Daily February 14, 2018 11:07am - metoclopramide HCl (REGLAN) 10 mg tablet Take 10 mg by mouth every 6 hours as needed. - montelukast (SINGULAIR) 10 mg tablet Take 10 mg by mouth once daily. - nystatin (MYCOSTATIN) powder APPLY TO AFFECTED AREA 4 TIMES A DAY NEEDED - sertraline (ZOLOFT) 25 mg tablet TAKE 1 TABLET BY MOUTH EVERY DAY IN THE MORNING - SUMAtriptan (IMITREX) 100 mg tablet TAKE 1 TAB AT ONSET OF MIGRAINE,MAY REPEAT IN 2 HRS MAX 2 TABS/DAY, 2 TIMES A WEEK - topiramate (TOPAMAX) 25 mg tablet Take 25 mg by mouth twice daily. Problem List As Of Date 02/11/2021 Noted Resolved Obesity, Class III, BMI >= 40 [E66.01] 12/10/2020 Encounter Status:[facility] ILEANAN [facility] (PAINMN) ---- JOVANA XIE ([id number]) 1970 F Date Time Provider Department 02/02/21 MARIS RAMIREZ PAINMN During your visit today, we recorded the following information about you: Maris Ramirez APRN.ASPHALT ENGINEER 02/02/2021 12:33 PM Signed Please advise patient that the flexion extension xrays are still needed. She has a virtual visit with me on morning. Copied from staff messages: Maris I looked at the MRI and her other imaging studies. 1. There is no value in doing any epidural injections. 2. She still needs to get the lumbar spine flexion and extension imaging to be certain there is no movement from her old pars fractures. 3. She has some facet arthropathy on the left side at L4-5 and L5-S1 and might benefit from medial branch blocks and a subsequent RFA procedure. 4. Her biggest problem is her weight and it will be extremely challenging to provide meaningful back pain relief in the absence of weight loss and an overall improvement in her physical conditioning. Steve Live 02/02/2021 2:44 PM Signed Spoke with patient and informed her of need for x-ray films. Patient states she will try to get to [facility] today to get films. Calli Live Allergies As of Date: 02/02/2021 Noted Allergy Reaction DEXAMETHASONE 12/10/2020 8 - GI Upset Comments: HAIR LOSS PENICILLINS 12/10/2020 14 - Other: See Comments Comments: HIGH FEVER-CHILLS Date Reviewed: 01/27/2021 Reviewed by: José Miguel Suarez, truck operator - Fully Assessed Reason for Visit: Results [95] Prescriptions as of 02/02/2021 - albuterol (PROVENTIL) 2.5 mg /3 mL (0.083 %) nebulizer solution Albuterol Sulfate Active 1 INH Inhalation EVERY 4-6 HOURS February 14, 2018 11:07am - SYMBICORT 160-4.5 mcg/actuation inhaler Inhale 2 Puffs as instructed twice daily. - dicyclomine (BENTYL) 20 mg tablet TAKE 1 TABLET BY MOUTH EVERY 6 HOURS NEEDED FOR ABDOMINAL PAIN - famotidine (PEPCID) 40 mg tablet Famotidine Active 40 MG Oral Daily February 14, 2018 11:07am - gabapentin (NEURONTIN) 100 mg capsule Take 100 mg by mouth three times daily. - metFORMIN (GLUCOPHAGE) 500 mg tablet Metformin Active 500 MG Oral Daily February 14, 2018 11:07am - metoclopramide HCl (REGLAN) 10 mg tablet Take 10 mg by mouth every 6 hours as needed. - montelukast (SINGULAIR) 10 mg tablet Take 10 mg by mouth once daily. - nystatin (MYCOSTATIN) powder APPLY TO AFFECTED AREA 4 TIMES A DAY NEEDED - sertraline (ZOLOFT) 25 mg tablet TAKE 1 TABLET BY MOUTH EVERY DAY IN THE MORNING - SUMAtriptan (IMITREX) 100 mg tablet TAKE 1 TAB AT ONSET OF MIGRAINE,MAY REPEAT IN 2 HRS MAX 2 TABS/DAY, 2 TIMES A WEEK - topiramate (TOPAMAX) 25 mg tablet Take 25 mg by mouth twice daily. Problem List As Of Date 02/02/2021 Noted Resolved Obesity, Class III, BMI >= 40 [E66.01] 12/10/2020 Encounter Status:Closed by MARIS RAMIREZ on 02/02/21 [facility] XR LUMBAR 4V AP/LAT/ FLEX/EX Ton 02-02-2021 XR LUMBAR 4V AP/LAT/ FLEX/EXT * * *Final Report* * * DATE OF EXAM: Feb 02 2021 5:22PM LNX [id number] - XR LUMBAR 4V AP/LAT/ FLEX/EXT / PROCEDURE REASON: multiple diagnoses * * * * Physician Interpretation * * * * EXAMINATION: XR LUMBAR 4V AP/LAT/ FLEX/EXT HISTORY: Low back pain, bilateral leg pain, foot swelling Facet arthropathy, lumbar Degenerative disc disease, lumbar . TECHNIQUE: XR LUMBAR 4V AP/LAT/ FLEX/EXT Laterality: NOT APPLICABLE Number of different views (projections): 4 M: XB_1 COMPARISON: Lumbar spine MRI 01/27/2021 RESULT: 5 images all labeled upright include dynamic flexion and extension lateral views. Counting reference: Lumbosacral junction. For the purposes of this report, L5 pedicles is considered the level of the iliac crest. Partial lumbarization of S1. Small accessory ribs L1. Very slight lateral curvature. Maintained gradual lordosis. Slight L5-S1 anterolisthesis does not change with extension and flexion. Identifiable appropriate angular motion at each level. Disc space narrowing mild L4-5 and L5-S1. Endplate osteophytosis mild L4-5. Facet joint hypertrophy moderate to severe L4-5 and L5-S1, worse on the left than the right. No vertebral collapse or evident bone destruction or other acute abnormality. No acute soft tissue abnormality. Postoperative right upper abdomen. IMPRESSION: 1. No acute findings. 2. Transitional anatomy as above. 3. Mild L5-S1 degenerative spondylolisthesis without findings of dynamic instability. 4. Advanced lower lumbar facet arthrosis. Mild lower lumbar spondylosis. Superintendent House: [facility] Transcribe Date/Time: Feb 03 2021 9:38A Dictated by : SAULO ROCA MD This examination was interpreted and the report reviewed and electronically signed by: SAULO ROCA MD on Feb 03 2021 9:44AM EST [id number] Normal [facility] XR LUMBAR MOTION 4V AP/LAT/ FLEX/EXTon 02-02-2021 [facility] MRI LUMBAR SPINE WO/W IVCONo n 01-27-2021 MRI LUMBAR SPINE WO/W IVCON * * *Final Report* * * DATE OF EXAM: Jan 27 2021 10:37AM [facility] 0304 - MRI LUMBAR SPINE WO/W IVCON / PROCEDURE REASON: Pathological fracture, other site, initial encounter for fracture * * * * Physician Interpretation * * * * EXAMINATION: MRI LUMBAR SPINE WO/W IVCON CLINICAL HISTORY: Degenerative changes noted on outside CT of the abdomen and pelvis. History of prior spine surgery. TECHNIQUE: Routine lumbosacral spine MR protocol without and with intravenous gadolinium. MQ: [id number] Contrast: IV administration of 20 ml of Dotarem COMPARISON: Outside MRI of the lumbar spine 04/21/2020 and 11/18/2019, outside CT abdomen pelvis 10/17/2020 RESULT: Counting reference: Lumbosacral junction. For the purposes of this report, L4-5 is considered the level of the iliac crest and assume there are 5 lumbar-type vertebrae. Anatomic variant: None. Localizer images: No significant findings. Alignment: Alignment is anatomic. Remote postsurgical changes of right L4 hemilaminotomy. Bone marrow signal/fracture: No evidence of pathologic marrow infiltration. Hemangioma of the T12 vertebral body. Chronic appearing fractures of the right L4 inferior articular facet and the left L4 pars interarticularis. These changes were likely present on the outside CT from 04/21/2020. Conus: The conus is within normal limits of signal intensity and morphology. No abnormal enhancement. Paraspinal soft tissues: Paraspinal soft tissues are within normal limits. Lower thoracic spine: Visualized lower thoracic canal and foramina are patent. T12-L1: Canal and foramina are patent. Meningeal cyst versus small synovial cyst in the superior aspect of the left foramen without apparent mass effect on the exiting nerve root. No significant change since 11/18/2019. L1-L2: Canal and foramina are patent. L2-L3: Canal and foramina are patent L3-L4: Mild narrowing of the left subarticular recess secondary to disc bulge and facet arthropathy. Spinal canal is otherwise patent. Mild left foraminal stenosis due to endplate spurring and facet arthropathy. Patent right foramen. Incidental 4 mm synovial cyst in the dorsal epidural space without significant mass effect. No significant change since 11/18/2019. L4-L5: No significant spinal canal stenosis despite central disc protrusion. Mild to moderate bilateral foraminal stenosis due to endplate spurring and facet arthropathy. No significant change L5-S1: Canal and foramina are patent. Sacrum and iliac wings: The visualized sacrum and iliac wings are within normal limits. IMPRESSION: 1. Degenerative changes of the lumbar spine without high-grade spinal canal stenosis. Foraminal stenosis is most pronounced bilaterally at L4-L5. No significant change since outside MRI from 11/18/2019. 2. Remote fractures of the L4 pars interarticularis bilaterally, likely present on outside MRI from 11/18/2019. 3. Remote postsurgical changes of right L4 hemilaminotomy. Anatomic Thoracic/Lumbar Variant: None. L4-5 is considered the level of the iliac crest and assume there are 5 lumbar-type vertebrae. Superintendent House: [facility] Transcribe Date/Time: Jan 27 2021 11:21A Dictated by : MARIELLE SCOTT MD This examination was interpreted and the report reviewed and electronically signed by: MARIELLE SCOTT MD on Jan 27 2021 11:45AM EST [id number] Normal [facility] Bhumi 12-22-2020 CNPN Telephone (PAINMN) ---- JOVANA XIE ([id number]) 1970 F Date Time Provider Department 12/22/20 MARIS RAMIREZ During your visit today, we recorded the following information about you: Maris Ramirez APRN.ASPHALT ENGINEER 12/22/2020 3:00 PM Signed ----- Message from [employer] sent at 12/22/2020 12:17 PM EDT ----- Regarding: Confidential // Denial: Pt. Jovana Xie // // Maegan Silva morning all, The below information is for a peer to peer and appeal for a service you have requested. Peer to Peer Information Is a Peer to Peer available?: Yes Does Peer to Peer need to be scheduled?: No Who can schedule?: N/A Who can complete the Peer to Peer?: , PA, DIRECTOR CLINICAL RESEARCH, LN Allowable Peer to Peer timeframe?: 3 business days starting from 12/20/2020 Payer Information Insurance Name: [employer] Insurance P2P option 3 Case #: [id number] Appeal Information Appeal Address: [employer]. Attn: Appeals Department [address] [place] [address] Appeal Fax#: [phone] Special Appeal Instruction: Send it attention to: Appeals department and attached any pertinent supporting documenation Allowable Timeframe for Appeal: 90 days from the denial date Facility Information Location: [facility] Tax ID#: [id number] Patient Demographics Patient Last Name: Anne-Marie Patient First Name: Jovana Date of : 1970 Clinical/Denial Information Ordering Provider: Maegan Angulo Approved Services: N/A Denied Services: [id number] - MRI LUMBAR SPINE WO/W IVCON Alternative Recommendation : N/A Date of Service (DOS): 12/27/20 Denial Reason: The notes sent do not meet JENN's Lumbar Spine MRI guidelines. Thus, the procedure is not shown to be medically needed. A physician reviewer made this decision based on a review of the following notes that were sent: pain. . Prior to an approval, the following doctor's notes should be sent: doctor's notes that say you did six weeks of back stretches (physical therapy, chiropractic treatments, or medically directed home exercise program) in the last six months. If you did this, the notes do not show the dates that you did the exercises. Doctor's notes also say the findings of a recent test (same test approved on 04/15/20). That test should show why more picture tests are needed. Clinical documentation provided: OFFICE NOTES:Latia ANGULO For questions, please contact April [email or web address]. Thank you for the Selma pritchard. Maris Ramirez APRN.CNP 12/22/2020 3:03 PM Signed Can you check on this? For authorization for MRI that was ordered. Prior to an approval, the following doctor's notes should be sent: doctor's notes that say you did six weeks of back stretches (physical therapy, chiropractic treatments, or medically directed home exercise program) in the last six months. If you did this, the notes do not show the dates that you did the exercises. Thanks, LITTLE Steel APRN.CNP 12/23/2020 9:26 AM Signed I called the patient to ask about previous PT. Needs to be within the last 6 months to get MRI authorized. I had to leave a message asking for a call back. LITTLE Steel 12/24/2020 2:15 PM Signed Patient returned call. States that she has completed PT at [facility]. Patient given fax number to have records sent to our office. Calli Live 12/24/2020 2:50 PM Signed PT report received from [facility]. Scanned into chart. Calli Ramirez APRN.CNP 12/24/2020 4:21 PM Signed I have now spoken to 2 physician reviewers and reviewed previous MRI and advised that PT notes are scanned into [employer]. They are requiring the PT notes be uploaded to [email or web address]. I sent a message to our authorization folks to have this done. She will need to reschedule the MRI. I sent her a [employer] message advising her of this. Maris Ramirez APRN.ASPHALT ENGINEER Calli Wu Jj 12/24/2020 4:34 PM Signed Patient notified via phone and verbalizes understanding. She will reschedule. Calli Wu [place] Allergies As of Date: 12/22/2020 Noted Allergy Reaction DEXAMETHASONE 12/10/2020 8 - GI Upset Comments: HAIR LOSS PENICILLINS 12/10/2020 14 - Other: See Comments Comments: HIGH FEVER-CHILLS Date Reviewed: 12/10/2020 Reviewed by: Jovana Sepulveda LPN - Fully Assessed Reason for Visit: Patient Update [1234] Prescriptions as of 12/24/2020 - albuterol (PROVENTIL) 2.5 mg /3 mL (0.083 %) nebulizer solution Albuterol Sulfate Active 1 INH Inhalation EVERY 4-6 HOURS February 14, 2018 11:07am - SYMBICORT 160-4.5 mcg/actuation inhaler Inhale 2 Puffs as instructed twice daily. - dicyclomine (BENTYL) 20 m (more content not included)... Normal [facility] Bhumi 12-17-2020 KARLA Telephone (PAINMN) ---- JOVANA XIE ([id number]) 1970 F Date Time Provider Department 12/17/20 MAEGAN ANGULO (HIST) JACOBO During your visit today, we recorded the following information about you: Calli Wu Jj 12/17/2020 12:11 PM Signed Patient called asking if her records had been faxed to her referring provider, Asha Louis. Records faxed per patient request. Calli Live Allergies As of Date: 12/17/2020 Noted Allergy Reaction DEXAMETHASONE 12/10/2020 8 - GI Upset Comments: HAIR LOSS PENICILLINS 12/10/2020 14 - Other: See Comments Comments: HIGH FEVER-CHILLS Date Reviewed: 12/10/2020 Reviewed by: Jovana Sepulveda LPN - Fully Assessed Reason for Visit: Nurse Triage Call [185] Prescriptions as of 12/17/2020 - albuterol (PROVENTIL) 2.5 mg /3 mL (0.083 %) nebulizer solution Albuterol Sulfate Active 1 INH Inhalation EVERY 4-6 HOURS February 14, 2018 11:07am - SYMBICORT 160-4.5 mcg/actuation inhaler Inhale 2 Puffs as instructed twice daily. - dicyclomine (BENTYL) 20 mg tablet TAKE 1 TABLET BY MOUTH EVERY 6 HOURS NEEDED FOR ABDOMINAL PAIN - famotidine (PEPCID) 40 mg tablet Famotidine Active 40 MG Oral Daily February 14, 2018 11:07am - gabapentin (NEURONTIN) 100 mg capsule Take 100 mg by mouth three times daily. - metFORMIN (GLUCOPHAGE) 500 mg tablet Metformin Active 500 MG Oral Daily February 14, 2018 11:07am - metoclopramide HCl (REGLAN) 10 mg tablet Take 10 mg by mouth every 6 hours as needed. - montelukast (SINGULAIR) 10 mg tablet Take 10 mg by mouth once daily. - nystatin (MYCOSTATIN) powder APPLY TO AFFECTED AREA 4 TIMES A DAY NEEDED - sertraline (ZOLOFT) 25 mg tablet TAKE 1 TABLET BY MOUTH EVERY DAY IN THE MORNING - SUMAtriptan (IMITREX) 100 mg tablet TAKE 1 TAB AT ONSET OF MIGRAINE,MAY REPEAT IN 2 HRS MAX 2 TABS/DAY, 2 TIMES A WEEK - topiramate (TOPAMAX) 25 mg tablet Take 25 mg by mouth twice daily. Problem List As Of Date 12/17/2020 Noted Resolved Obesity, Class III, BMI >= 40 [E66.01] 12/10/2020 Encounter Status:Closed by CALLI LIVE on 12/17/20 [facility] CNOVon 12-10-2020 CNOV Office Visit (PAINMN) ---- JOVANA XIE ([id number]) 1970 F Date Time Provider Department 12/10/20 3:30 PM MAEGAN ANGULO During your visit today, we recorded the following information about you: Temperature Pulse Respiration Blood pressure 97.8 degrees 104/minute 16/minute 160/109 Weight Height 131.5 kg 1.626 m Maegan Angulo MD 12/11/2020 9:37 AM Signed Chronic Pain Consult Note Date: December 10, 2020 - 4:01 PM Referring physician: Self This consult was requested by Self for my medical opinion. My final recommendations will be communicated to the referring physician by way of the shared medical record for internal providers or by letter via the [employer] for external providers. Chief Complaint: Back pain History of Present Illness: Jovana Xie is a 50 year old who presents to [facility] Pain Management Department for a follow up appointment for low back pain. She states that she has had this pain for years. She has had lumbar decompression surgery approx 4-5 years ago. She states that she was pain free up until about a year and a half ago when she had a fall. She states that after her fall she had knee pain and was told that it was her back pain that was causing her knee pain. Per MRI report that was brought with her to her appt she has degenerative facet arthropathy at L5-S1. She was being treated by [facility] management [facility] and was receiving steroid injections with moderate relief of pain for 1 week. She states that her pain management physician wanted to do an ablation but she sought a second opinion and per patient she was discharged from his practice which meant she was also cut off her Tylenol #3 prescription. She states the Tylenol #3 was helping. She states that the pain is in her lower back and intermittently radiates down her buttocks or up her back at times. The patient is unable to describe the pain. The pain is constant. The pain is partially relieved by lying down, the pain is exacerbated by standing or walking. The patient denies difficulty with bowel or bladder control, unintentional weight loss and fevers, chills, or night sweats. Previous pain treatments: physical therapy, medications, surgery, injections Physical Therapy/Home Exercise: Yes Pain Medications: - Opioids: none - NSAIDs: none - Anti-Depressants: zoloft 25 mg daily, topamax 25 mg BID - Anti-Convulsants: neurontin 100 mg TID - Others: NA OARRS Report: Reviewed: The patient's OARRS report was reviewed and is consistent with the reported medication use. Pain medications reviewed: Yes Past Medical History: PAST MEDICAL HISTORY Diagnosis Date - Anxiety state - Arthritis - COPD (chronic obstructive pulmonary disease) (HCC) - Essential hypertension - Insulin resistance - Tobacco use disorder Past Surgical History: PAST SURGICAL HISTORY Procedure Laterality Date - PAST SURGICAL HISTORY OF BACK SURGERY DUE TO HERNIATED DISC X6 - PAST SURGICAL HISTORY OF Bilateral KNEE SCOPE - REMOVAL GALLBLADDER - VAGINAL HYSTERECTOMY Family History: FAMILY HISTORY Adopted: Yes Social History: Alcohol Use: Never Tobacco Use: .5 packs/day Types: Cigarettes Drug Use: Yes Occupation: off work for now due to pain, seeking disability Psychiatric History: depression, anxiety Allergies: ALLERGIES Allergen Reactions - Dexamethasone GI Upset HAIR LOSS - Penicillins Other: See Comments HIGH FEVER-CHILLS Current Outpatient Medications: Current Outpatient Medications Medication Sig - albuterol (PROVENTIL) 2.5 mg /3 mL (0.083 %) nebulizer solution Albuterol Sulfate Active 1 INH Inhalation EVERY 4-6 HOURS February 14, 2018 11:07am - SYMBICORT 160-4.5 mcg/actuation inhaler Inhale 2 Puffs as instructed twice daily. - dicyclomine (BENTYL) 20 mg tablet TAKE 1 TABLET BY MOUTH EVERY 6 HOURS NEEDED FOR ABDOMINAL PAIN - famotidine (PEPCID) 40 mg tablet Famotidine Active 40 MG Oral Daily February 14, 2018 11:07am - gabapentin (NEURONTIN) 100 mg capsule Take 100 mg by mouth three times daily. - metFORMIN (GLUCOPHAGE) 500 mg tablet Metformin Active 500 MG Oral Daily February 14, 2018 11:07am - metoclopramide HCl (REGLAN) 10 mg tablet Take 10 mg by mouth every 6 hours as needed. - montelukast (SINGULAIR) 10 mg tablet Take 10 mg by mouth once daily. - nystatin (MYCOSTATIN) powder APPLY TO AFFECTED AREA 4 TIMES A DAY NEEDED - sertraline (ZOLOFT) 25 mg tablet TAKE 1 TABLET BY MOUTH EVERY DAY IN THE MORNING - SUMAtriptan (IMITREX) 100 mg tablet TAKE 1 TAB AT ONSET OF MIGRAINE,MAY REPEAT IN 2 HRS MAX 2 TABS/DAY, 2 TIMES A WEEK - topiramate (TOPAMAX) 25 mg tablet Take 25 mg by mouth twice daily. - iv contrast (will be provided with radiology test) MRI LSP Inject, intravenously, once for 1 dose. No IV access, insert saline lock prior to (more content not included)... Normal [facility] OT-CT ABD/PELVIS WO CON IMPO RTon 10-17-2020 OT-CT ABD/PELVIS WO CON IMPORT Images were obtained outside of [facility] [id number] Normal [facility] Vital Signs Date Time Vital Sign Value Performing Clinician Facility 11-14-2023 12:31-0400 Blood Pressure Location Navdeep Valiente [facility] 11-14-2023 12:31-0400 Diastolic blood pressure 83 mm[Hg] Navdeep Valiente [facility] 11-14-2023 12:31-0400 Heart rate 71 /min Navdeep Valiente [facility] 11-14-2023 12:31-0400 Respiratory rate 16 /min Navdeep Valiente [facility] 11-14-2023 12:31-0400 Systolic blood pressure 122 mm[Hg] Navdeep Valiente [facility] 10-22-2023 11:30-0400 Blood Pressure Location Navdeep Valiente [facility] 10-22-2023 11:30-0400 Diastolic blood pressure 64 mm[Hg] Navdeep Valiente [facility] 10-22-2023 11:30-0400 Heart rate 63 /min Mohamad Mouchli [facility] 10-22-2023 11:30-0400 Mean blood pressure 83 mm[Hg] Mohamad Mouchli [facility] 10-22-2023 11:30-0400 Respiratory rate 13 /min Mohamad Mouchli [facility] 10-22-2023 11:30-0400 SaO2% (BldA) [Mass fraction] 93 % Mohamad Mouchli [facility] 10-22-2023 11:30-0400 Systolic blood pressure 122 mm[Hg] Mohamad Mouchli [facility] 10-22-2023 11:20-0400 Blood Pressure Location Mohamad Mouchli [facility] 10-22-2023 11:20-0400 Diastolic blood pressure 63 mm[Hg] Mohamad Mouchli [facility] 10-22-2023 11:20-0400 Heart rate 64 /min Mohamad Mouchli [facility] 10-22-2023 11:20-0400 Mean blood pressure 79 mm[Hg] Mohamad Mouchli [facility] 10-22-2023 11:20-0400 Respiratory rate 12 /min Mohamad Mouchli [facility] 10-22-2023 11:20-0400 SaO2% (BldA) [Mass fraction] 93 % Mohamad Mouchli [facility] 10-22-2023 11:20-0400 Systolic blood pressure 111 mm[Hg] Mohamad Mouchli [facility] 10-22-2023 11:05-0400 Blood Pressure Location Mohamad Mouchli [facility] 10-22-2023 11:05-0400 Diastolic blood pressure 57 mm[Hg] Mohamad Mouchli [facility] 10-22-2023 11:05-0400 Heart rate 64 /min Mohamad Mouchli [facility] 10-22-2023 11:05-0400 Mean blood pressure 72 mm[Hg] Mohamad Mouchli [facility] 10-22-2023 11:05-0400 Respiratory rate 25 /min Mohamad Mouchli [facility] 10-22-2023 11:05-0400 SaO2% (BldA) [Mass fraction] 95 % Mohamad Mouchli [facility] 10-22-2023 11:05-0400 Systolic blood pressure 102 mm[Hg] Mohamad Mouchli [facility] 10-22-2023 10:52-0400 Body temperature 98.42 [degF] Mohamad Mouchli [facility] 10-22-2023 09:47-0400 Body temperature 97.52 [degF] Mohamad Mouchli [facility] 10-18-2023 09:31-0400 Blood Pressure Location Mohamad Mouchli [facility] 10-18-2023 09:31-0400 Diastolic blood pressure 82 mm[Hg] Mohamad Mouchli [facility] 10-18-2023 09:31-0400 Heart rate 76 /min Mohamad Mouchli [facility] 10-18-2023 09:31-0400 Systolic blood pressure 118 mm[Hg] Navdeep Valiente [facility] 11-08-2022 09:45-0400 Body height 162.56 cm Charu Calvey Other [email or web address] Other 11-08-2022 09:45-0400 Body mass index (BMI) [Ratio] 51.49 kg/m2 Charu Calvey Other [email or web address] Other 11-08-2022 09:45-0400 Body weight 136.08 kg Charu Calvey Other [email or web address] Other 10-11-2022 11:15-0400 Body height 162.56 cm Charu Calvey Other [email or web address] Other 10-11-2022 11:15-0400 Body mass index (BMI) [Ratio] 51.49 kg/m2 Charu Calvey Other [email or web address] Other 10-11-2022 11:15-0400 Body weight 136.08 kg Charu Calvey Other [email or web address] Other 06-21-2022 11:30-0500 Body height 162.56 cm Charu Calvey Other [email or web address] Other 06-21-2022 11:30-0500 Body mass index (BMI) [Ratio] 48.06 kg/m2 Charu Calvey Other [email or web address] Other 06-21-2022 11:30-0500 Body weight 127.01 kg Charu Calvey Other [email or web address] Other 09-22-2021 14:30-0400 Diastolic blood pressure 77 mm[Hg] MD Charu Pham Work Phone: [facility] 09-22-2021 14:30-0400 Heart rate 65 /min MD Charu Pham Work Phone: [facility] 09-22-2021 14:30-0400 Respiratory rate 16 /min MD Charu Pham Work Phone: [facility] 09-22-2021 14:30-0400 SaO2% (BldA) [Mass fraction] 95 % MD Charu Pham Work Phone: [facility] 09-22-2021 14:30-0400 Systolic blood pressure 131 mm[Hg] MD Charu Pham Work Phone: [facility] 09-22-2021 13:37-0400 Inhaled oxygen flow rate 8 L/min MD Charu Pham Work Phone: [facility] 09-22-2021 12:37-0400 Body height 162.56 cm MD Charu Pham Work Phone: [facility] 09-22-2021 12:37-0400 Body mass index (BMI) [Ratio] 54.1 kg/m2 MD Charu Pham Work Phone: [facility] 09-22-2021 12:37-0400 Body weight 143 kg MD Charu Pham Work Phone: [facility] 09-22-2021 11:44-0400 Body temperature 97.6 [degF] MD Charu Pham Work Phone: [facility] 07-29-2021 09:30-0500 Body height 162.56 cm Charu Pham Other [facility] [employer] Other 07-29-2021 09:30-0500 Body mass index (BMI) [Ratio] 53.21 kg/m2 Charu Pham Other [email or web address] Other 07-29-2021 09:30-0500 Body weight 140.62 kg Charu Calvey Other [email or web address] Other 06-17-2021 09:15-0500 Body height 162.56 cm Charu Calvey Other [email or web address] Other 06-17-2021 09:15-0500 Body mass index (BMI) [Ratio] 53.21 kg/m2 Charu Calvey Other [email or web address] Other 06-17-2021 09:15-0500 Body weight 140.62 kg Charu Calvey Other [email or web address] Other 05-20-2021 09:30-0500 Body height 162.56 cm Charu Calvey Other [email or web address] Other 05-20-2021 09:30-0500 Body mass index (BMI) [Ratio] 51.49 kg/m2 Charu Calvey Other [email or web address] Other 05-20-2021 09:30-0500 Body weight 136.08 kg Charu Calvey Other [email or web address] Other 03-23-2021 11:00-0400 Body height 162.56 cm Charu Calvey Other [email or web address] Other 03-23-2021 11:00-0400 Body mass index (BMI) [Ratio] 51.15 kg/m2 Charu Calvey Other [email or web address] Other 03-23-2021 11:00-0400 Body weight 135.17 kg Charu Calvey Other [email or web address] Other Encounters Encounter Date Encounter Type Care Provider Facility Start: 12-04-2024 ambulatory Melissa Erazo Facility :[facility] [place] Start: 12-27-2023 ambulatory Melissa Erazo Facility :[facility] [place] Start: 12-04-2023 ambulatory Edenilson Wise acility:[facility] Start: 12-03-2023 End: 12-03-2023 ambulatory Melissa Erazo Facility:[facility] [place] Start: 11-27-2023 End: 11-27-2023 ambulatory Melissa Erazo Facility:[facility] [place] Start: 11-14-2023 End: 11-14-2023 ambulatory Navdeep Valiente Facility:[facility] Start: 11-14-2023 End: 11-14-2023 Patient encounter procedure Navdeep Valiente [facility] Start: 10-30-2023 End: 10-30-2023 ambulatory Melissa Erazo Facility:[facility] [place] Start: 10-25-2023 End: 10-25-2023 ambulatory Melissa Erazo Facility:[facility] [place] Start: 10-22-2023 End: 10-22-2023 ambulatory Navdeep Valiente Facility:[facility] Start: 10-22-2023 End: 10-22-2023 Patient encounter procedure Navdeep Valiente [facility] Start: 10-19-2023 End: 10-19-2023 [facility] Start: 10-18-2023 End: 10-18-2023 ambulatory Navdeep Valiente Facility:[facility] Start: 10-18-2023 End: 10-18-2023 Patient encounter procedure Navdeep Valiente [facility] Start: 09-26-2023 ambulatory [facility] Start: 09-25-2023 End: 09-25-2023 Lab Drop off Melissa Erazo [facility] Start: 09-25-2023 End: 09-25-2023 ambulatory Melissa Erazo Facility:[facility] Start: 02-16-2023 End: 02-16-2023 ambulatory [facility] Start: 12-20-2022 End: 12-20-2022 ambulatory [facility] Start: 11-13-2022 End: 11-13-2022 ambulatory NAVDEEP [facility] Start: 11-08-2022 End: 11-08-2022 ambulatory Charu Pham Other [email or web address] Other Start: 11-08-2022 Office outpatient vi sit 15 minutes Charu Calvey [facility] Start: 10-27-2022 End: 10-28-[address] ALEM PASCUAL Facility: Start: 10-11-2022 Office outpatient vi sit 15 minutes Charu Calvey [facility] Start: 10-11-2022 End: 10-11-2022 ambulatory MD Elvia Sweeney Work Phone: [facility] Work Phone: Start: 10-11-2022 End: 10-11-2022 Patient encounter procedure MD Elvia Sweeney Work Phone: [facility] Start: 09-25-2022 End: 09-25-2022 Lab Drop off Melissa Erazo [facility] Start: 06-21-2022 Office outpatient vi sit 15 minutes Charu Calvey [facility] Start: 06-21-2022 End: 01-18-2023 ambulatory MD Elvia Sweeney Work Phone: [facility] Work Phone: Start: 06-21-2022 End: 06-21-2022 Patient encounter procedure MD Elvia Sweeney Work Phone: [facility] Start: 12-27-2021 End: 12-28-[address] ELVIA SWEENEY . Facility:[facility] Start: 12-01-2021 End: 12-02-[address] ELVIA SWEENEY . Facility:[facility] Start: 11-30-2021 End: 12-01-[address] ELVIA SWEENEY . Facility:[facility] Start: 11-29-2021 End: 11-30-[address] ELVIA SWEENEY . Facility:[facility] Start: 11-25-2021 End: 11-25-2021 ambulatory BERRY VIRGEN Facility:[facility] Start: 11-23-2021 Encounter for preprocedural laboratory examination DR BRAD SHORE [facility] Start: 11-21-2021 End: 11-21-[address] BRAD SHORE Facility:[facility] Start: 11-21-2021 End: 11-21-2021 Encounter for preprocedural laboratory examination DR BRAD SHORE Facility:[facility] Start: 09-22-2021 End: 09-22-2021 Admission to same day surgery center MD Charu Pham Work Phone: [facility] Start: 09-20-2021 End: 09-20-2021 Patient encounter procedure MD Charu Pham Work Phone: [facility] Start: 09-15-2021 End: 09-15-2021 Patient encounter procedure MD Charu Pham Work Phone: [facility] Start: 07-29-2021 End: 07-29-2021 ambulatory Charu Pham Other [email or web address] Other Start: 07-29-2021 Office outpatient vi sit 15 minutes [facility] Start: 06-17-2021 End: 06-17-2021 ambulatory Charu Pham Other [email or web address] Other Start: 06-17-2021 Postop follow up vis it related to original px Charuruth Pham [facility] Start: 05-20-2021 End: 05-20-2021 ambulatory Charu Pham Other [email or web address] Other Start: 05-20-2021 Postop follow up vis it related to original px Charu Pham [facility] Start: 03-23-2021 Encounter for other preprocedural examination Charu Pham [facility] Start: 03-23-2021 Office outpatient ne w 45 minutes Charu Pham [facility] Start: 02-02-2021 End: 02-02-2021 Subsequent hospital visit by physician Ester [facility] Radiology Comment on above: Facet arthropathy, l umbar [M47.816] Procedures Date Procedure Procedure Detail Performing Clinician Start: 10-22-2023 Colonoscopy Navdeep Valiente Start: 10-22-2023 Esophagogastroduodenoscopy Navdeep villavicencio Start: 10-11-2022 Plain X-ray of bilateral hands MD Elvia kulkarni Work Phone: Start: 06-21-2022 X-ray of cervical spine MD Elvia Sweeney Work Phone: Start: 09-22-2021 Decompression of median nerve MD Charu Pham Work Phone: Start: 02-02-2021 Radex spine lumbosacral minimum 4 views Aparna Boudreaux MD Work Phone: Start: 06-04-2005 Cardiac catheter (physical object) Melissa Erazo Start: 01-15-2004 Total abdominal hysterectomy with bilateral salpingo-oophorectomy Melissa Erazo Arthroscopy Melissa Erazo Comment on above: left and right, separate times H/O: hysterectomy S/P hysterectomy Chuck sury Valiente History of cholecystectomy S/P cholecyste ctomy Chucksury Valiente History of operative procedure on lumbar spinal structure Melissa Erazo Comment on above: L4-L5 disc December 2015 Tonsillectomy and adenoidectomy Melissa Erazo Plan of Treatment Date Care Activity Detail Author Start: 02-02-2023 Influenza vaccination INFLUENZA (#1) [facility] Start: 06-04-2022 DEPRESSION ASSESSMENT DEPRESSION ASSESSMENT [facility] Start: 2021 SHINGRIX VACCINE (1 of 2) SHINGRIX VACCINE (1 of 2) [facility] Start: 2016 COLOGUARD (FIT-DNA) COLOGUARD (FIT-DNA) [facility] Start: 2016 Colonoscopy COLONOSCOPY [facility] Start: 2016 COLORECTAL CANCER SCREENING COLORECTAL CANCER SCREENING [facility] Start: [address] COLONOGRAPHY [facility] Start: 2016 DIABETES SCREEN DIABETES SCREEN [facility] Start: 2016 FECAL OCCULT BLOOD FECAL OCCULT BLOOD [facility] Start: 2016 LIPID SCREEN LIPID SCREEN [facility] Start: 2016 SIGMOIDOSCOPY SIGMOIDOSCOPY [facility] Start: 2011 Mammography MAMMOGRAM [facility] Start: 2001 HPV TESTING HPV TESTING [facility] Start: 1992 PAP TESTING PAP TESTING [facility] Start: 1990 Urine microalbumin profile DTAP,TDAP,TD (1 - Tdap) [facility] Start: 1989 HEPATITIS C SCREENING HEPATITIS C SCREENING [facility] Start: 1989 HIV SCREENING HIV SCREENING [facility] Start: 1977 PNEUMOCOCCAL (1 - PCV) PNEUMOCOCCAL (1 - PCV) [facility] Start: 1971 COVID-19 VACCINE (#1) COVID-19 VACCINE (#1) [facility] Start: 1971 HEPATITIS B (1 of 3 - 3-dose series) HEPATITIS B (1 of 3 - 3-dose series) [facility] Patient referral [facility] Work Phone: Payers Date Payer Category Payer Self-pay [id number] 2017 Medicaid [employer] [facility] MEDICAID [id number] 2017-2022 [address] [place] [address] Medicaid [id number] 1971 Unknown [id number] [id number] 1971 Unknown [id number] 2.16.840.1.477798.3.579.2.593 1971 Unknown [id number] 2.16.840.1.834717.3.579.2.593 1971 Unknown [id number] 2.16.840.1.621794.3.579.2.593 1971 Unknown [id number] 2.16.840.1.520882.3.579.2.593 1971 Unknown [id number] 2.16.840.1.477076.3.579.2.593 1971 Unknown [id number] 2.16.840.1.906672.3.579.2.593 1971 Unknown [id number] 2.16.840.1.975871.3.579.2.593 1971 Unknown [id number] 2.16.840.1.854439.3.579.2.593 1971 Unknown [id number] 2.16.840.1.202089.3.579.2.727 1971 Unknown [id number] 2.16.840.1.678089.3.579.2.727 1971 Unknown [id number] 2.16.840.1.794584.3.579.2.727 1971 Unknown [id number] 2.16.840.1.062019.3.579.2.727 1971 Unknown [id number] 2.16.840.1.136779.3.579.2.727 1971 Unknown [id number] 2.16.840.1.775743.3.579.2.727 1971 Unknown [id number] 2.16.840.1.049864.3.579.2.727 1971 Unknown [id number] 2.16.840.1.428847.3.579.2.727 1971 Unknown [id number] 2.16.840.1.089174.3.579.2.727 1971 Unknown [id number] 2.16.840.1.585471.3.579.2.727 1971 Unknown [id number] 2.16.840.1.146855.3.579.2.727 1959 Medicaid [id number] 1958 Medicare [id number] [id number] Unknown [facility] [id number] Unknown [employer] [id number] Unknown [id number] [id number] Social History Date Type Detail Facility Start: 09-15-2021 End: 09-22-2021 Tobacco smoking status PRIS Smoker (finding) [facility] Start: 1970 Sex Assigned At Female F [facility] Start: 12-10-2020 Sex Assigned At F [facility] Start: 09-25-2022 Tobacco smoking status Heavy t obacco smoker (finding) [facility] Tobacco smoking status Never [facility] Start: 12-10-2020 [facility] History of tobacco use Cigarette Smoker [facility] Start: 12-10-2020 Cigarettes smoked current (pack per day) - Reported 0.5 [facility] Start: 12-10-2020 Tobacco use and exposure Smokeless tobacco non-user [facility] Start: 12-10-2020 Alcohol intake Lifetime non-d joey (finding) [facility] Start: 12-14-2020 Gender identity Identifies as female gender (finding) [facility] Start: 12-14-2020 Sexual orientation Heterosexual (fin ding) [facility] Start: 12-28-2020 End: 01-27-2021 Exposure to SARS-CoV-2 (event) Not sure [facility] Start: 09-25-2023 End: 11-14-2023 Tobacco smoking status Ex-smoker (finding) [facility] Goals Date Patient Goal Desired Activity /State Functional Status Date Assessment Result Facility 11-14-2023 Functional Status N/A [facility] 10-22-2023 Functional Status N/A [facility] 10-18-2023 Functional Status N/A [facility] Clinical Notes 12-10-2020 to 12-03-2023 Note Date & Type Note Facility 12-03-2023 Note Patient Education Cardiovascular Atrial Fibrillation Atrial fibrillation is a type of heartbeat that is irregular or fast. If you have this condition, your heart beats without any order. This makes it hard for your heart to pump blood in a normal way. Atrial fibrillation may come and go, or it may become a long-lasting problem. If this condition is not treated, it can put you at higher risk for stroke, heart failure, and other heart problems. What are the causes? This condition may be caused by diseases that damage the heart. They include: ? High blood pressure. ? Heart failure. ? Heart valve disease. ? Heart surgery. Other causes include: ? Diabetes. ? Thyroid disease. ? Being overweight. ? Kidney disease. Sometimes the cause is not known. What increases the risk? You are more likely to develop this condition if: ? You are older. ? You smoke. ? You exercise often and very hard. ? You have a family history of this condition. ? You are a man. ? You use drugs. ? You drink a lot of alcohol. ? You have lung conditions, such as emphysema, pneumonia, or COPD. ? You have sleep apnea. What are the signs or symptoms? Common symptoms of this condition include: ? A feeling that your heart is beating very fast. ? Chest pain or discomfort. ? Feeling short of breath. ? Suddenly feeling light-headed or weak. ? Getting tired easily during activity. ? Fainting. ? Sweating. In some cases, there are no symptoms. How is this treated? Treatment for this condition depends on underlying conditions and how you feel when you have atrial fibrillation. They include: ? Medicines to: ? Prevent blood clots. ? Treat heart rate or heart rhythm problems. ? Using devices, such as a pacemaker, to correct heart rhythm problems. ? Doing surgery to remove the part of the heart that sends bad signals. ? Closing an area where clots can form in the heart (left atrial appendage). In some cases, your doctor will treat other underlying conditions. Follow these instructions at home: Medicines ? Take fzvi-eiq-gwzcshj and prescription medicines only as told by your doctor. ? Do not take any new medicines without first talking to your doctor. ? If you are taking blood thinners: ? Talk with your doctor before you take any medicines that have aspirin or NSAIDs, such as ibuprofen, in them. ? Take your medicine exactly as told by your doctor. Take it at the same time each day. ? Avoid activities that could hurt or bruise you. Follow instructions about how to prevent falls. ? Wear a bracelet that says you are taking blood thinners. Or, carry a card that lists what medicines you take. Lifestyle ? Do not use any products that have nicotine or tobacco in them. These include cigarettes, e-cigarettes, and chewing tobacco. If you need help quitting, ask your doctor. ? Eat heart-healthy foods. Talk with your doctor about the right eating plan for you. ? Exercise regularly as told by your doctor. ? Do not drink alcohol. ? Lose weight if you are overweight. ? Do not use drugs, including cannabis. General instructions ? If you have a condition that causes breathing to stop for a short period of time (apnea), treat it as told by your doctor. ? Keep a healthy weight. Do not use diet pills unless your doctor says they are safe for you. Diet pills may make heart problems worse. ? Keep all follow-up visits as told by your doctor. This is important. Contact a doctor if: ? You notice a change in the speed, rhythm, or strength of your heartbeat. ? You are taking a blood-thinning medicine and you get more bruising. ? You get tired more easily when you move or exercise. ? You have a sudden change in weight. Get help right away if: ? You have pain in your chest or your belly (abdomen). ? You have trouble breathing. ? You have side effects of blood thinners, such as blood in your vomit, poop (stool), or pee (urine), or bleeding that cannot stop. ? You have any signs of a stroke. BE FAST is an easy way to remember the main warning signs: ? B - Balance. Signs are dizziness, sudden trouble walking, or loss of balance. ? E - Eyes. Signs are trouble seeing or a change in how you see. ? F - Face. Signs are sudden weakness or loss of feeling in the face, or the face or eyelid drooping on one side. ? A - Arms. Signs are weakness or loss of feeling in an arm. This happens suddenly and usually on one side of the body. ? S - Speech. Signs are sudden trouble speaking, slurred speech, or trouble understanding what people say. ? T - Time. Time to call emergency services. Write down what time symptoms started. ? You have other signs of a stroke, such as: ? A sudden, very bad headache with no known cause. ? Feeling like you may vomit (nausea). ? Vomiting. ? A seizure. Thes (more content not included)... [facility] 10-23-2023 Note [id number] #[id number] [facility] 10-22-2023 Evaluation + Plan note Extrac olesya from: Title:ANES Post General Author:Nolan Santiago DO Date:10/22/23 Plan Transfer/Discharge: Patient exhibiting no signs of N/V. Hydration status is adequate. Extracted from: Title:Jack Basic PRE Author:Jordin Santiago DO Date:10/22/23 Plan [place] [employer] (ASA) physical status classification: Class III. Anesthetic Preoperative Plan: Anesthesia General. Future Appointments Appointment Date:10/30/2023 09:45:00 AM Scheduled Provider:Melissa Erazo MD Location:[facility] Appointment Type:[facility]05-20-2024 Hospital Discharge instructions Patient Education 10/22/2023 11:00:14 Hiatal Hernia Hiatal Hernia A hiatal hernia occurs when part of the stomach slides above the muscle that separates the abdomen from the chest (diaphragm). A person can be born with a hiatal hernia (congenital), or it may develop over time. In almost all cases of hiatal hernia, only the top part of the stomach pushes through the diaphragm. Many people have a hiatal hernia with no symptoms. The larger the hernia, the more likely it is that you will have symptoms. In some cases, a hiatal hernia allows stomach acid to flow back into the tube that carries food from your mouth to your stomach (esophagus). This may cause heartburn symptoms. The development of heartburn symptoms may mean that you have a condition called gastroesophageal reflux disease (GERD). What are the causes? This condition is caused by a weakness in the opening (hiatus) where the esophagus passes through the diaphragm to attach to the upper part of the stomach. A person may be born with a weakness in thehiatus, or a weakness can develop over time. What increases the risk? This condition is more likely to develop in: Older people. Age is a major risk factor for a hiatal hernia, especially if you are over the age of50. women. People who are overweight. People who have frequent constipation. What are the signs or symptoms? Symptoms of this condition usually develop in the form of GERD symptoms. Symptoms include: Heartburn. Upset stomach (indigestion). Trouble swallowing. Coughing or wheezing. Wheezing is making high-pitched whistling sounds when you breathe. Sore throat. Chest pain. Nausea and vomiting. How is this diagnosed? This condition may be diagnosed during testing for GERD. Tests that may be done include: X-rays of your stomach or chest. An upper gastrointestinal (GI) series. This is an X-ray exam of your GI tract that is taken after you swallow a chalky liquid that shows up clearly on the X-ray. Endoscopy. This is a procedure to look into your stomach using a thin, flexible tube that has a tiny camera and light on the end of it. How is this treated? This condition may be treated by: Dietary and lifestyle changes to help reduce GERD symptoms. Medicines. These may include: ?Zurr-uyr-nwufagk antacids. ?Medicines that make your stomach empty more quickly. ?Medicines that block the production of stomach acid (H2 blockers). ?Stronger medicines to reduce stomach acid (proton pump inhibitors). Surgery to repair the hernia, if other treatments are not helping. If you have no symptoms, you may not need treatment. Follow these instructions at home: Lifestyle and activity Do not use any products that contain nicotine or tobacco. These products include cigarettes, chewing tobacco, and vaping devices, such as e-cigarettes. If you need help quitting, ask your health careprovider. Try to achieve and maintain a healthy body weight. Avoid putting pressure on your abdomen. Anything that puts pressure on your abdomen increases the amount of acid that may be pushed up into your esophagus. ?Avoid bending over, especially after eating. ?Raise the head of your bed by putting blocks under the legs. This keeps your head and esophagus higher than your stomach. ?Do not wear tight clothing around your chest or stomach. ?Try not to strain when having a bowel movement, when urinating, or when lifting heavy objects. Eating and drinking Avoid foods that can worsen GERD symptoms. These may include: ?Fatty foods, like fried foods. ?[place] fruits, like oranges or lemon. ?Other foods and drinks that contain acid, like orange juice or tomatoes. ?Spicy food. ?Chocolate. Eat frequent small meals instead of three large meals a day. This helps prevent your stomach from getting too full. ?Eat slowly. ?Do not lie down right after eating. ?Do not eat 1 2 hours before bed. Do not drink beverages with caffeine. These include cola, coffee, cocoa, and tea. Do not drink alcohol. General instructions Take okzg-qeq-ozwrxij and prescription medicines only as told by your health care provider. Keep all follow-up visits. Your health care provider will want to check that any new prescribed medicines are helping your symptoms. Contact a health care provider if: Your symptoms are not controlled with medicines or lifestyle changes. You are having trouble swallowing. You have coughing or wheezing that will not go away. Your pain is getting worse. Your pain spreads to your arms, neck, jaw, teeth, or back. You feel nauseous or you vomit. Get help right away if: You have shortness of breath. You vomit blood. You have bright red blood in your stools. You have black, tarry stools. These symptoms may be an emergency. Get help right away. Call 911. Do not wait to see if the symptoms will go away. Do not drive yourself to the hospital. Summary A hiatal hernia occurs when part of the stomach slides above the muscle that separates the abdomen from the chest. A person may be born with a weakness in the hiatus, or a weakness can develop over time. Symptoms of a hiatal hernia may include heartburn, trouble swallowing, or sore throat. Management of a hiatal hernia includes eating frequent small meals instead of three large meals a day. Get help right away if you vomit blood, have bright red blood in your stools, or have black, tarry stools. This information is not intended to replace advice given to you by your health care provider. Make sure you discuss any questions you have with your health care provider. Document Revised: 07/18/2022 Document Reviewed: 07/18/2022 [employer] Patient Education 2022 [employer]. 10/22/2023 11:00:06 Diverticulosis MAGR (CUSTOM) Diverticulosis Many people have small pouches in their colon called diverticulum. The diverticulum bulge outward through weak spots in the colon. You could have one or more of these pouches in the colon. The condition of having these pouches in the colon is called diverticulosis or diverticular disease. Diverticulosis is usually diagnosed by tests to evaluate something else. For example, you may have had a colonoscopy to screen for colon cancer when the diverticulosis was found. Most people with diverticulosis do not have any discomfort or problems. If symptoms develop, they may include mild cramps, bloating, and constipation. A complication of this condition is called diverticulitis. This is when the diverticulum become inflamed and infected. How to treat diverticulosis: Increasing the amount of fiber in the diet may reduce symptoms of diverticulosis and prevent complications such as diverticulitis (infected diverticuli). Fiber keeps stool soft and lowers pressure inside the colon so that bowel contents can move througheasily. You should eat 20 to 35 grams of fiber each day. The table below shows the amount of fiber in some foods that you can easily add to your diet. Adding fiber slowly may decrease the bloating and fullness sometimes felt with an immediate high fiber diet. The doctor may also recommend taking a fiber product such as Citrucel or Metamucil once a day. In the past people with diverticulosis were to avoid nuts, corn, and seeds. This has not been foundto be true. If you find that certain foods create cramping or bloating, avoid that food. Foods high in fiber include: Fresh fruits, fresh vegetables, legumes (beans), whole wheat bread, bran muffins or cereal, and nuts. See the table below for examples of high fiber foods. Remember, your goal is 20- 35 grams per day. Amount of fiber in different foods Food Serving Grams of fiber Fruits Apple (with skin) 1 medium apple 4.4 Banana 1 medium banana 3.1 Oranges 1 orange 3.1 Prunes 1 cup, pitted 12.4 Juices Apple, unsweetened, w/added ascorbic acid 1 cup 0.5 Grapefruit, white, canned, sweetened 1 cup 0.2 Grape, unsweetened, w/added ascorbic acid 1 cup 0.5 [place] 1 cup 0.7 Vegetables Cooked Green beans 1 cup 4.0 Carrots 1/2 cup sliced 2.3 Peas 1 cup 8.8 Potato (baked, with skin) 1 medium potato 3.8 Raw [place] (with peel) 1 cucumber 1.5 Lettuce 1 cup shredded 0.5 Tomato 1 medium tomato 1.5 Spinach 1 cup 0.7 Legumes Baked beans, canned, no salt added 1 cup 13.9 Kidney beans, canned 1 cup 13.6 Nova beans, canned 1 cup 11.6 Lentils, boiled 1 cup 15.6 Breads, pastas, flours Bran muffins 1 medium muffin 5.2 Oatmeal, cooked 1 cup 4.0 White bread 1 slice 0.6 Whole-wheat bread 1 slice 1.9 Pasta and rice, cooked Macaroni 1 cup 2.5 Rice, brown 1 cup 3.5 Rice, white 1 cup 0.6 Spaghetti (regular) 1 cup 2.5 Nuts Almonds 1/2 cup 8.7 Peanuts 1/2 cup 7.9 Chart from [facility] 2013. SEEK IMMEDIATE MEDICAL CARE IF: You develop abdominal (belly) pain. An oral temperature above _ 101 F__develops. Repeated vomiting occurs. Blood is being passed in stools (bright red or black tarry stools). You develop any bowel problems or changes which you have not had before. Extra Information: To learn how much fiber and other nutrients are in different foods, visit the [place] Department of Agriculture (USDA) National Nutrient Database at: http://www.nal.usda.gov/fnic/foodcomp/search/ Created using data from the USDA National Nutrient Database for Standard Reference. Available at http://www.[employer].usda.gov/fnic/foodcomp/search/. Information adapted from: ExitCare Patient Information 2009 [employer]. [employer] 2013 http://www.[employer]/contents/boickogrywcd-zfvcdxs-ncsgzz-the-basics 10/22/2023 11:00:00 Colon Polyps Colon Polyps Colon polyps are tissue growths inside the colon, which is part of the large intestine. They are one of the types of polyps that can grow in the body. A polyp may be a round bump or a mushroom-shapedgrowth. You could have one polyp or more than one. Most colon polyps are noncancerous (benign). However, some colon polyps can become cancerous over time. Finding and removing the polyps early can help prevent this. What are the causes? The exact cause of colon polyps is not known. What increases the risk? The following factors may make you more likely to develop this condition: Having a family history of colorectal cancer or colon polyps. Being older than 45 years of age. Being younger than 45 years of age and having a significant family history of colorectal cancer or colon polyps or a genetic condition that puts you at higher risk of getting colon polyps. Having inflammatory bowel disease, such as ulcerative colitis or Crohn's disease. Having certain conditions passed from parent to child (hereditary conditions), such as: ?Familial adenomatous polyposis (FAP). ?Earl syndrome. ?Turcot syndrome. ?Peutz Jeghers syndrome. ?MUTYH-associated polyposis (MAP). Being overweight. Certain lifestyle factors. These include smoking cigarettes, drinking too much alcohol, not gettingenough exercise, and eating a diet that is high in fat and red meat and low in fiber. Having had childhood cancer that was treated with radiation of the abdomen. What are the signs or symptoms? Many times, there are no symptoms. If you have symptoms, they may include: Blood coming from the rectum during a bowel movement. Blood in the stool (feces). The blood may be bright red or very dark in color. Pain in the abdomen. A change in bowel habits, such as constipation or diarrhea. How is this diagnosed? This condition is diagnosed with a colonoscopy. This is a procedure in which a lighted, flexible scope is inserted into the opening between the buttocks (anus) and then passed into the colon to examine the area. Polyps are sometimes found when a colonoscopy is done as part of routine cancer screening tests. How is this treated? This condition is treated by removing any polyps that are found. Most polyps can be removed during a colonoscopy. Those polyps will then be tested for cancer. Additional treatment may be needed depending on the results of testing. Follow these instructions at home: Eating and drinking Eat foods that are high in fiber, such as fruits, vegetables, and whole grains. Eat foods that are high in calcium and vitamin D, such as milk, cheese, yogurt, eggs, liver, fish, and broccoli. Limit foods that are high in fat, such as fried foods and desserts. Limit the amount of red meat, precooked or cured meat, or other processed meat that you eat, such as hot dogs, sausages, hua, or meat loaves. Limit sugary drinks. Lifestyle Maintain a healthy weight, or lose weight if recommended by your health care provider. Exercise every day or as told by your health care provider. Do not use any products that contain nicotine or tobacco, such as cigarettes, e- cigarettes, and chewing tobacco. If you need help quitting, ask your health care provider. Do not drink alcohol if: ?Your health care provider tells you not to drink. ?You are , may be , or are planning to become . If you drink alcohol: ?Limit how much you use to: ?0 1 drink a day for women. ?0 2 drinks a day for men. ?Know how much alcohol is in your drink. In the [place] one drink equals one 12 oz bottle of beer (355 mL), one 5 oz glass of wine (148 mL), or one 1 oz glass of hard liquor (44 mL). General instructions Take ytmb-jfs-lalkzgv and prescription medicines only as told by your health care provider. Keep all follow-up visits. This is important. This includes having regularly scheduled colonoscopies. Talk to your health care provider about when you need a colonoscopy. Contact a health care provider if: You have new or worsening bleeding during a bowel movement. You have new or increased blood in your stool. You have a change in bowel habits. You lose weight for no known reason. Summary Colon polyps are tissue growths inside the colon, which is part of the large intestine. They are one type of polyp that can grow in the body. Most colon polyps are noncancerous (benign), but some can become cancerous over time. This condition is diagnosed with a colonoscopy. This condition is treated by removing any polyps that are found. Most polyps can be removed during a colonoscopy. This information is not intended to replace advice given to you by your health care provider. Make sure you discuss any questions you have with your health care provider. Document Revised: 09/08/2020 Document Reviewed: 09/08/2020 [employer] Patient Education 2022 [employer]. 10/22/2023 10:59:59 Colonoscopy, Care After Surgery Salam (CUSTOM) Colonoscopy Care After Surgery Please read the instructions outlined below and refer to this sheet in the next few weeks. These discharge instructions provide you with general information on caring [facility] Your doctor may also give you specific instructions. While your treatment has been planned according to the most current medical practices available, unavoidable complications occasionally occur. If you have any problems or questions after discharge, please call your doctor. ACTIVITY You may resume your regular activity, but move at a slower pace for the next 24 hours. Take frequent rest periods for the next 24 hours. Walking will help get rid of the air and reduce the bloated feeling in your abdomen (belly). No driving for 24 hours (because of the anesthesia (medicine) used during the test). You may shower. Do not sign any important legal documents or operate any machinery for 24 hours (because of the anesthesia used during the test). NUTRITION Drink plenty of fluids. You may resume your normal diet as instructed by your doctor. Begin with a light meal and progress to your normal diet. Heavy or fried foods are harder to digestand may make you feel nauseated (sick to your stomach). Avoid alcoholic beverages for 24 hours or as instructed. MEDICATIONS You may resume your normal medications unless your doctor tells you otherwise. WHAT YOU CAN EXPECT TODAY Some feelings of bloating in the abdomen. Passage of more gas than usual. Spotting of blood in your stool or on the toilet paper. FOLLOW-UP Your doctor will discuss the results of your test with you. SEEK IMMEDIATE MEDICAL ATTENTION IF: There is more than a spotting of blood in your stool. There is abdominal distention (your abdomen is swollen). There is vomiting. You have a temperature over 101.5 F. There is abdominal pain or discomfort that is severe or gets worse throughout the day. 10/22/2023 10:59:56 Endoscopy, Care After Procedure [facility] ([facility]) Endoscopy Care After Procedure Please read the instructions outlined below and refer to this sheet in the next few weeks. These discharge instructions provide you with general information on caring for [facility] Your doctor may also give you specific instructions. While your treatment has been planned according to the most current medical practices available, unavoidable complications occasionally occur. If you have any problems or questions after discharge, please call your doctor. ACTIVITY You may resume your regular activity but move at a slower pace for the next 24 hours. Take frequent rest periods for the next 24 hours. Walking will help expel (get rid of) the air and reduce the bloated feeling in your abdomen. No driving for 24 hours (because of the anesthesia (medicine) used during the test). You may shower. Do not sign any important legal documents or operate any machinery for 24 hours (because of the anesthesia used during the test). NUTRITION Drink plenty of fluids. You may resume your normal diet. Begin with a light meal and progress to your normal diet. Avoid alcoholic beverages for 24 hours or as instructed by your caregiver. MEDICATIONS You may resume your normal medications unless your caregiver tells you otherwise. WHAT YOU CAN EXPECT TODAY You may experience abdominal discomfort such as a feeling of fullness or gas pains. FOLLOW-UP Your doctor will discuss the results of your test with you. SEEK IMMEDIATE MEDICAL ATTENTION IF ANY OF THE FOLLOWING OCCUR: Excessive nausea (feeling sick to your stomach) and/or vomiting. Severe abdominal pain and distention (swelling). Trouble swallowing. Temperature over 100 F (37.8 C). Rectal bleeding or vomiting of blood. Document Released: 01/02/2005 Document Re-Released: 11/12/2006 ExitCare Patient Information 2009 [employer]. Follow Up Care 10/18/2023 10:35:15 With:Navdeep Valiente Address: [address] [place] [address], [address] [place] [address]- [phone] Business (1) When:1 to 2 weeks Comments:Call for any problems. [facility] Subjective Jovana Xie is a 53 y.o. year old female With past medical history of hyperlipidemia, hypertension, COPD, and obstructive sleep apnea on CPAP. She presents today for follow up. Patient today complains of palpitations. States she feels like a butterfly is having a seizure in her chest. Denies chest pain and SOB. Says her BP last night was 130/88 and HR 141. She [facility] in [facility] 3 months and has lost 35# since last visit. Had labs recently for Dr. Erazo. She said since she wasn't getting all her meds while in [facility], Dr. Erazo wanted to start from scratch with her meds. She was not restarted on carvedilol, verapamil, or atorvastatin yet. States she has bottles of them at home still. No additional complaints or concerns ROS 10 points ROS is performed and is negative unless otherwise specified in HPI Patient Active Problem List Diagnosis Hypertension Asthma Chronic pain syndrome Controlled type 2 diabetes mellitus without complication, without long-term current use of insulin ([facility]) Diabetes mellitus type II, controlled ([facility]) Derangement of knee Dyspnea Extrinsic asthma with status asthmaticus Headache Hemorrhoids Low back pain Metabolic syndrome X Morbid obesity ([facility]) Obesity, Class III, BMI 40-49.9 (morbid obesity) ([facility]) Osteoarthritis Pain in right foot Pain in thumb joint with movement of right hand Raynaud's phenomenon without gangrene Psoriasis Palpitations Sciatica Smoker Unilateral primary osteoarthritis, left knee Ulnar neuropathy Steatosis of liver Vitamin D3 deficiency Family History Problem Relation Name Age of Onset Coronary artery disease Mother Other (pacemaker) Mother Social History Tobacco Use Smoking status: Every Day Packs/day: .5 Types: Cigarettes Smokeless tobacco: Never Substance Use Topics Alcohol use: Not Currently Update: 12/20/2022 She is here to follow-up on hypertension She was started on verapamil 180 mg daily during last office visit with Dr. Gomez 1 month ago Thinks she is using Verapamil Checks BP daily, does not have log but thinks they are high Smoking half a pack a day ROS 10 point ROS is performed and is negative unless otherwise specified in HPI Objective Visit Vitals Smoking Status Every Day Physical Exam General: Awake, alert, good spirits. NAD Pulm: Breath sounds clear to ascultation bilaterally with no wheeze, crackles or rhonchi Cards: Regular rate and rhythm, S1, S2. No S3 or S4 gallop. Murmur: none Extr: Lower extremity edema: None. Skin: warm, dry, well perfused Neuro: A&Ox3, No gross deficits Allergies Allergies Allergen Reactions Dexamethasone Other HAIR LOSS Hydrocodone-Acetaminophen Lisinopril Penicillins Other HIGH FEVER-CHILLS Medications Current Outpatient Medications: Advair Diskus 250-50 mcg/dose diskus inhaler, INHALE 1 PUFF BY MOUTH TWICE A DAY *RINSE MOUTH AFTER USE*, Disp: , Rfl: albuterol 90 mcg/actuation inhaler, albuterol sulfate HFA 90 mcg/actuation aerosol inhaler, Disp: , Rfl: atorvastatin (Lipitor) 40 mg tablet, Take 1 tablet (40 mg) by mouth at bedtime., Disp: 90 tablet, Rfl: 3 budesonide-formoteroL (Symbicort) 160-4.5 mcg/actuation inhaler, Symbicort 160 mcg-4.5 mcg/actuation HFA aerosol inhaler, Disp: , Rfl: carvedilol (Coreg) 12.5 mg tablet, Take 1 tablet (12.5 mg) by mouth with breakfast and with evening meal., Disp: 180 tablet, Rfl: 3 famotidine (Pepcid) 20 mg tablet, famotidine 20 mg tablet TAKE 1 TABLET BY MOUTH EVERY DAY AT BEDTIME FOR 30 DAYS, Disp: , Rfl: gabapentin (Neurontin) 100 mg capsule, if needed., Disp: , Rfl: losartan-hydrochlorothiazide (Hyzaar) 100-25 mg tablet, Take 1 tablet by mouth in the morning., Disp: 30 tablet, Rfl: 11 metFORMIN (Glucophage) 500 mg tablet, metformin 500 mg tablet TAKE 1 TABLET BY MOUTH EVERY DAY, Disp: , Rfl: omeprazole (PriLOSEC) [address] capsule, omeprazole 40 mg capsule,delayed release TAKE 1 CAPSULE BY MOUTH EVERY MORNING 30 TO 60 MINUTES PRIOR TO BREAKFAST, Disp: , Rfl: rimegepant (Nurtec ODT) 75 mg tablet,disintegrating, Nurtec ODT 75 mg disintegrating tablet TAKE 1 TABLET AT ONSET OF MIGRAINE, MAX 1 TABLET DAILY 2 DAYS PER WEEK, Disp: , Rfl: semaglutide (Ozempic) 0.25 mg or 0.5 mg(2 mg/1.5 mL) pen injector, Ozempic 0.25 mg or 0.5 mg (2 mg/1.5 mL) subcutaneous pen injector INJECT 0.25MG SUBCUTANEOUSLY EVERY WEEK, Disp: , Rfl: topiramate 50 mg tablet, Take 1 tablet by mouth at bedtime., Disp: , Rfl: verapamil SR (Calan-SR) 180 mg ER tablet, Take 1 tablet (180 mg) by mouth once daily as directed. Do not crush or chew., Disp: 90 tablet, Rfl: 3 Recent Labs Labs 06/07/2021: CBC-WBC 7.9, Hgb 13.5, HCT 42.3, platelet 288 CMP-creatinine 0.88, BUN 19, K3.9, NA 141, GFR greater than 60, ALT 85, AST 42, High-sensitivity troponin-7.7 TSH-3.773 Imaging and other test Echo: 07/06/2021 Normal ventricu (more content not included)...[facility]09-15-2023 NotePatient here for 2 mo follow up hypertension and hyperlipidemia. At last apt in December, carvedilol was doubled to 12.5mg bid. She brought her BP log from home with her today. Says she's still running high, around 165/115. Yesterday was 195 systolic. Her home BP cuff read 150/108 today in the office (L wrist sitting). Review of Systems Cardiovascular: Positive for dyspnea on exertion and leg swelling. Respiratory: Positive for shortness of breath. Musculoskeletal: Positive for back pain. Gastrointestinal: Positive for nausea. Neurological: Positive for headaches. All other systems reviewed and are negative.[facility] 02-16-2023 NoteCardiology Clinic Note Subjective Jovana Xie is a 52 y.o. year old female With past medical history of hyperlipidemia, hypertension, GERD, insulin resistance, migraines, COPD, and obstructive sleep apnea on CPAP seen in follow-up. Patient Active Problem List Diagnosis Hypertension Asthma Chronic pain syndrome Controlled type 2 diabetes mellitus without complication, without long-term current use of insulin (CMS/HCC) Diabetes mellitus type II, controlled (CMS/HCC) Derangement of knee Dyspnea Extrinsic asthma with status asthmaticus Headache Hemorrhoids Low back pain Metabolic syndrome X Morbid obesity (CMS/HCC) Obesity, Class III, BMI 40-49.9 (morbid obesity) (CMS/HCC) Osteoarthritis Pain in right foot Pain in thumb joint with movement of right hand Raynaud's phenomenon without gangrene Psoriasis Palpitations Sciatica Smoker Unilateral primary osteoarthritis, left knee Ulnar neuropathy Steatosis of liver Vitamin D3 deficiency Family History Problem Relation Name Age of Onset Coronary artery disease Mother Other (pacemaker) Mother Social History Tobacco Use Smoking status: Every Day Packs/day: 0.50 Types: Cigarettes Smokeless tobacco: Never Substance Use Topics Alcohol use: Not Currently Update: 12/20/2022 She is here to follow-up on hypertension She was started on verapamil 180 mg daily during last office visit with Dr. Gomez 1 month ago Thinks she is using Verapamil Checks BP daily, does not have log but thinks they are high Smoking half a pack a day Update: 02/16/2023 Blood pressure remains poorly controlled Monitoring at least 2-3x/day averaging 150-160/90-100s Smoking 1/2 ppd Review of Systems Cardiovascular: Negative for chest pain, dyspnea on exertion, irregular heartbeat, leg swelling, near-syncope, orthopnea, palpitations, paroxysmal nocturnal dyspnea and syncope. Respiratory: Positive for cough. Objective Visit Vitals BP (!) 173/94 (BP Location: Left wrist, Patient Position: Sitting) Pulse 76 Ht 1.626 m (5' 4 ) Wt (!) 137 kg (303 lb) SpO2 93% BMI 52.01 kg/m??? Smoking Status Every Day BSA 2.49 m??? Physical Exam General: Awake, alert, good spirits. NAD Pulm: Breath sounds clear to ascultation bilaterally with no wheeze, crackles or rhonchi Cards: Regular rate and rhythm, S1, S2. No S3 or S4 gallop. Murmur: none Extr: Lower extremity edema: None. Skin: warm, dry, well perfused Neuro: A&Ox3, No gross deficits Allergies Allergies Allergen Reactions Dexamethasone Other HAIR LOSS Hydrocodone-Acetaminophen Lisinopril Penicillins Other HIGH FEVER-CHILLS Medications Current Outpatient Medications: Advair Diskus 250-50 mcg/dose diskus inhaler, INHALE 1 PUFF BY MOUTH TWICE A DAY *RINSE MOUTH AFTER USE*, Disp: , Rfl: albuterol 90 mcg/actuation inhaler, albuterol sulfate HFA 90 mcg/actuation aerosol inhaler, Disp: , Rfl: budesonide-formoteroL (Symbicort) 160-4.5 mcg/actuation inhaler, Symbicort 160 mcg-4.5 mcg/actuation HFA aerosol inhaler, Disp: , Rfl: carvedilol (Coreg) 12.5 mg tablet, Take 1 tablet (12.5 mg) by mouth with breakfast and with evening meal., Disp: 180 tablet, Rfl: 3 famotidine (Pepcid) 20 mg tablet, famotidine 20 mg tablet TAKE 1 TABLET BY MOUTH EVERY DAY AT BEDTIME FOR 30 DAYS, Disp: , Rfl: gabapentin (Neurontin) 100 mg capsule, if needed., Disp: , Rfl: metFORMIN (Glucophage) 500 mg tablet, metformin 500 mg tablet TAKE 1 TABLET BY MOUTH EVERY DAY, Disp: , Rfl: omeprazole (PriLOSEC) [address] capsule, omeprazole 40 mg capsule,delayed release TAKE 1 CAPSULE BY MOUTH EVERY MORNING 30 TO 60 MINUTES PRIOR TO BREAKFAST, Disp: , Rfl: rimegepant (Nurtec ODT) 75 mg tablet,disintegrating, Nurtec ODT 75 mg disintegrating tablet TAKE 1 TABLET AT ONSET OF MIGRAINE, MAX 1 TABLET DAILY 2 DAYS PER WEEK, Disp: , Rfl: semaglutide (Ozempic) 0.25 mg or 0.5 mg(2 mg/1.5 mL) pen injector, Ozempic 0.25 mg or 0.5 mg (2 mg/1.5 mL) subcutaneous pen injector INJECT 0.25MG SUBCUTANEOUSLY EVERY WEEK, Disp: , Rfl: topiramate 50 mg tablet, Take 1 tablet by mouth at bedtime., Disp: , Rfl: verapamil SR (Calan-SR) 180 mg ER tablet, Take 1 tablet (180 mg) by mouth once daily as directed. Do not crush or chew., Disp: 90 tablet, Rfl: 3 atorvastatin (Lipitor) 40 mg tablet, Take 1 tablet (40 mg) by mouth at bedtime., Disp: 90 tablet, Rfl: 3 losartan-hydrochlorothiazide (Hyzaar) 100-25 mg tablet, Take 1 tablet by mouth in the morning., Disp: 30 tablet, Rfl: 11 Recent Labs 12/20/2022 WBC 10.4, Hgb 15.5, Hct 47.2, Platelet 326 Sodium 137, potassium 4.3, chloride 102, CO2 24.6, BUN 17, Scr 0.89, eGFR >60%, AST 20, ALT 44 Hgcb A1C 5.5% TC 210, TG 144, LDL 13, HDL 47 Labs 06/07/2021: CBC-WBC 7.9, Hgb 13.5, HCT 42.3, platelet 288 CMP-creatinine 0.88, BUN 19, K3.9, NA 141, GFR greater than 60, ALT 85, AST 42, High-sensitivity troponin-7.7 TSH-3.773 Imaging and other test (more content not included)...[facility]07-19-2023 NoteCardiology Clinic Note Subjective Jovana Xie is a 52 y.o. year old female With past medical history of hyperlipidemia, hypertension, GERD, insulin resistance, migraines, COPD, and obstructive sleep apnea on CPAP seen in follow-up. Patient Active Problem List Diagnosis Hypertension Asthma Chronic pain syndrome Controlled type 2 diabetes mellitus without complication, without long-term current use of insulin ([facility]) Diabetes mellitus type II, controlled (CMS/[facility]) Derangement of knee Dyspnea Extrinsic asthma with status asthmaticus Headache Hemorrhoids Low back pain Metabolic syndrome X Morbid obesity (CMS/HCC) Obesity, Class III, BMI 40-49.9 (morbid obesity) (CMS/[facility]) Osteoarthritis Pain in right foot Pain in thumb joint with movement of right hand Raynaud's phenomenon without gangrene Psoriasis Palpitations Sciatica Smoker Unilateral primary osteoarthritis, left knee Ulnar neuropathy Steatosis of liver Vitamin D3 deficiency Family History Problem Relation Name Age of Onset Coronary artery disease Mother Other (pacemaker) Mother Social History Tobacco Use Smoking status: Every Day Packs/day: 0.50 Types: Cigarettes Smokeless tobacco: Never Substance Use Topics Alcohol use: Not Currently Update: 12/20/2022 She is here to follow-up on hypertension She was started on verapamil 180 mg daily during last office visit with Dr. Gomez 1 month ago Thinks she is using Verapamil Checks BP daily, does not have log but thinks they are high Smoking half a pack a day Review of Systems Cardiovascular: Negative for chest pain, dyspnea on exertion, irregular heartbeat, leg swelling, near-syncope, orthopnea, palpitations, paroxysmal nocturnal dyspnea and syncope. Respiratory: Positive for cough. Objective Visit Vitals BP (!) 168/107 (BP Location: Left arm, Patient Position: Sitting) Pulse 78 Ht 1.626 m (5' 4 ) Wt 136 kg (299 lb) SpO2 97% BMI 51.32 kg/m??? Smoking Status Every Day BSA 2.48 m??? Physical Exam General: Awake, alert, good spirits. NAD Pulm: Breath sounds clear to ascultation bilaterally with no wheeze, crackles or rhonchi Cards: Regular rate and rhythm, S1, S2. No S3 or S4 gallop. Murmur: none Extr: Lower extremity edema: None. Skin: warm, dry, well perfused Neuro: A&Ox3, No gross deficits Allergies Allergies Allergen Reactions Dexamethasone Other HAIR LOSS Hydrocodone-Acetaminophen Lisinopril Penicillins Other HIGH FEVER-CHILLS Medications Current Outpatient Medications: Advair Diskus 250-50 mcg/dose diskus inhaler, INHALE 1 PUFF BY MOUTH TWICE A DAY *RINSE MOUTH AFTER USE*, Disp: , Rfl: albuterol 90 mcg/actuation inhaler, albuterol sulfate HFA 90 mcg/actuation aerosol inhaler, Disp: , Rfl: budesonide-formoteroL (Symbicort) 160-4.5 mcg/actuation inhaler, Symbicort 160 mcg-4.5 mcg/actuation HFA aerosol inhaler, Disp: , Rfl: famotidine (Pepcid) 20 mg tablet, famotidine 20 mg tablet TAKE 1 TABLET BY MOUTH EVERY DAY AT BEDTIME FOR 30 DAYS, Disp: , Rfl: gabapentin (Neurontin) 100 mg capsule, if needed., Disp: , Rfl: losartan (Cozaar) 50 mg tablet, Take 1 tablet (50 mg) by mouth once daily as directed., Disp: 90 tablet, Rfl: 1 metFORMIN (Glucophage) 500 mg tablet, metformin 500 mg tablet TAKE 1 TABLET BY MOUTH EVERY DAY, Disp: , Rfl: omeprazole (PriLOSEC) [address] capsule, omeprazole 40 mg capsule,delayed release TAKE 1 CAPSULE BY MOUTH EVERY MORNING 30 TO 60 MINUTES PRIOR TO BREAKFAST, Disp: , Rfl: rimegepant (Nurtec ODT) 75 mg tablet,disintegrating, Nurtec ODT 75 mg disintegrating tablet TAKE 1 TABLET AT ONSET OF MIGRAINE, MAX 1 TABLET DAILY 2 DAYS PER WEEK, Disp: , Rfl: semaglutide (Ozempic) 0.25 mg or 0.5 mg(2 mg/1.5 mL) pen injector, Ozempic 0.25 mg or 0.5 mg (2 mg/1.5 mL) subcutaneous pen injector INJECT 0.25MG SUBCUTANEOUSLY EVERY WEEK, Disp: , Rfl: topiramate 50 mg tablet, Take 1 tablet by mouth at bedtime., Disp: , Rfl: carvedilol (Coreg) 12.5 mg tablet, Take 1 tablet (12.5 mg) by mouth with breakfast and with evening meal., Disp: 180 tablet, Rfl: 3 verapamil SR (Calan-SR) 180 mg ER tablet, Take 1 tablet (180 mg) by mouth once daily as directed. Do not crush or chew., Disp: 90 tablet, Rfl: 3 Recent Labs Labs 06/07/2021: CBC-WBC 7.9, Hgb 13.5, HCT 42.3, platelet 288 CMP-creatinine 0.88, BUN 19, K3.9, NA 141, GFR greater than 60, ALT 85, AST 42, High-sensitivity troponin-7.7 TSH-3.773 Imaging and other test Echo: 07/06/2021 Normal ventricular function No valvular dysfunction Normal right-sided pressures No pericardial effusion EC06/07/2021 Sinus rhythm with sinus arrhythmia Assessment Diagnoses and all orders for this visit: Benign hypertensive heart disease without congestive heart failure - verapamil SR (Calan-SR) 180 mg ER tablet; Take 1 tablet (180 mg) by mouth once daily as directed. Do not crush or chew. - CBC; Future - Comprehensi (more content not included)...[facility] 12-20-2022 NotePatient here for 1 mo follow up hypertension. She is back on verapamil but says her BP is still elevated when she checks it at home. Still denies chest pain. Says she's only taking carvedilol once daily. Review of Systems Cardiovascular: Positive for dyspnea on exertion and leg swelling. Respiratory: Positive for shortness of breath. Musculoskeletal: Positive for back pain. Gastrointestinal: Positive for nausea. Neurological: Positive for headaches. All other systems reviewed and are negative.[facility] 11-13-2022 NotePatient here for 6 mo follow up hypertension, EVANS, and palpitations. Had PFT's a few weeks ago for Dr. Merritt. Denies chest pain. Corina Stock asked her to resume verapamil at her last apt in May 2022, but she states she misunderstood this and is still not taking it.[facility]06-12-2023 Note Cardiology Clinic Note Subjective Jovana Xie is a 52 y.o. year old female With past medical history of hyperlipidemia, hypertension, COPD, and obstructive sleep apnea on CPAP. She presents today for follow up. Today, patient states that she feels well. She denies any cardiac complaints or concerns. She denies any chest pain or shortness of breath. She denies any lower extreme edema, orthopnea, paroxysmal nocturnal dyspnea. Her blood pressure is elevated in clinic today. She is not taking her verapamil. She is only taking losartan. She denies any headache or dizziness. No visual disturbances. Patient Active Problem List Diagnosis Hypertension Asthma Chronic pain syndrome Controlled type 2 diabetes mellitus without complication, without long-term current use of insulin ([facility]) Diabetes mellitus type II, controlled ([facility]) Derangement of knee Dyspnea Extrinsic asthma with status asthmaticus Headache Hemorrhoids Low back pain Metabolic syndrome X Morbid obesity ([facility]) Obesity, Class III, BMI 40-49.9 (morbid obesity) ([facility]) Osteoarthritis Pain in right foot Pain in thumb joint with movement of right hand Raynaud's phenomenon without gangrene Psoriasis Palpitations Sciatica Smoker Unilateral primary osteoarthritis, left knee Ulnar neuropathy Steatosis of liver Vitamin D3 deficiency Family History Problem Relation Name Age of Onset Coronary artery disease Mother Other (pacemaker) Mother Social History Tobacco Use Smoking status: Every Day Packs/day: 0.50 Types: Cigarettes Smokeless tobacco: Never Substance Use Topics Alcohol use: Not Currently Update: 12/20/2022 She is here to follow-up on hypertension She was started on verapamil 180 mg daily during last office visit with Dr. Gomez 1 month ago Thinks she is using Verapamil Checks BP daily, does not have log but thinks they are high Smoking half a pack a day ROS 10 point ROS is performed and is negative unless otherwise specified in HPI Objective Visit Vitals BP (!) 170/100 (BP Location: Left arm, Patient Position: Sitting) Pulse 88 Ht 1.626 m (5' 4 ) Wt (!) 137 kg (303 lb) SpO2 96% BMI 52.01 kg/m??? Smoking Status Every Day BSA 2.49 m??? Physical Exam General: Awake, alert, good spirits. NAD Pulm: Breath sounds clear to ascultation bilaterally with no wheeze, crackles or rhonchi Cards: Regular rate and rhythm, S1, S2. No S3 or S4 gallop. Murmur: none Extr: Lower extremity edema: None. Skin: warm, dry, well perfused Neuro: A&Ox3, No gross deficits Allergies Allergies Allergen Reactions Dexamethasone Other HAIR LOSS Hydrocodone-Acetaminophen Lisinopril Penicillins Other HIGH FEVER-CHILLS Medications Current Outpatient Medications: albuterol 90 mcg/actuation inhaler, albuterol sulfate HFA 90 mcg/actuation aerosol inhaler, Disp: , Rfl: budesonide-formoteroL (Symbicort) 160-4.5 mcg/actuation inhaler, Symbicort 160 mcg-4.5 mcg/actuation HFA aerosol inhaler, Disp: , Rfl: famotidine (Pepcid) 20 mg tablet, famotidine 20 mg tablet TAKE 1 TABLET BY MOUTH EVERY DAY AT BEDTIME FOR 30 DAYS, Disp: , Rfl: gabapentin (Neurontin) 100 mg capsule, if needed., Disp: , Rfl: losartan (Cozaar) 50 mg tablet, Take 1 tablet (50 mg) by mouth once daily as directed., Disp: 90 tablet, Rfl: 1 metFORMIN (Glucophage) 500 mg tablet, metformin 500 mg tablet TAKE 1 TABLET BY MOUTH EVERY DAY, Disp: , Rfl: omeprazole (PriLOSEC) [address] capsule, omeprazole 40 mg capsule,delayed release TAKE 1 CAPSULE BY MOUTH EVERY MORNING 30 TO 60 MINUTES PRIOR TO BREAKFAST, Disp: , Rfl: rimegepant (Nurtec ODT) 75 mg tablet,disintegrating, Nurtec ODT 75 mg disintegrating tablet TAKE 1 TABLET AT ONSET OF MIGRAINE, MAX 1 TABLET DAILY 2 DAYS PER WEEK, Disp: , Rfl: semaglutide (Ozempic) 0.25 mg or 0.5 mg(2 mg/1.5 mL) pen injector, Ozempic 0.25 mg or 0.5 mg (2 mg/1.5 mL) subcutaneous pen injector INJECT 0.25MG SUBCUTANEOUSLY EVERY WEEK, Disp: , Rfl: topiramate 50 mg tablet, Take 1 tablet by mouth at bedtime., Disp: , Rfl: Advair Diskus 250-50 mcg/dose diskus inhaler, INHALE 1 PUFF BY MOUTH TWICE A DAY *RINSE MOUTH AFTER USE*, Disp: , Rfl: carvedilol (Coreg) 12.5 mg tablet, Take 1 tablet (12.5 mg) by mouth with breakfast and with evening meal., Disp: 180 tablet, Rfl: 3 verapamil SR (Calan-SR) 180 mg ER tablet, Take 1 tablet (180 mg) by mouth once daily as directed. Do not crush or chew., Disp: 90 tablet, Rfl: 3 Recent Labs Labs 06/07/2021: CBC-WBC 7.9, Hgb 13.5, HCT 42.3, platelet 288 CMP-creatinine 0.88, BUN 19, K3.9, NA 141, GFR greater than 60, ALT 85, AST 42, High-sensitivity troponin-7.7 TSH-3.773 Imaging and other test Echo: 07/06/2021 Normal ventricular function No valvular dysfunction Normal right-sided pressures No pericardial effusion EC06/07/2021 Sinus rhythm with sinus arrhythmia Assessment Diagnoses and all orders for this visi (more content not included)...[facility]06-07-2023 Evaluation note* Encounter Date Diagnosis Assessment Notes Treatment Notes Treatment Clinical Notes Nov, Right hand pain (ICD-10 - M79.641) Nov, Trigger thumb, right thumb (ICD-10 - M65.311) Patient is progressing well. May return for repeat injection or to discuss surgical release if recurs. Call with questions/concerns. [email or web address] Other 05-26-2023 NotePROCEDURE: XR HIPS ARMAAN 3_4V WO PELVIS, XR SACROILIAC JOINT 3 VIEWS HISTORY: Hip pain ; chronic bilateral hip pain COMPARISON: None. FINDINGS: BONES:No fracture, acute abnormality, or significant arthropathy. SOFT TISSUES:No visible soft tissue swelling. EFFUSION:None visible. SACRUM: No fracture, disruption of the sacral ala line, or cortical irregularity. COCCYX: No fracture or suspicious alignment. SOFT TISSUES: No widening of the sacroiliac joints. No radiopaque foreign body. OTHER: IMPRESSION: 1. No acute bone abnormality or significant degenerative changes of the hip joints. 2. Unremarkable sacroiliac joints. Electronically authenticated by: ALEM PASCUAL Date: 2022-10-27 09:15[facility]05-26-2023 NotePROCEDURE: XR HIPS ARMAAN 3_4V WO PELVIS, XR SACROILIAC JOINT 3 VIEWS HISTORY: Hip pain ; chronic bilateral hip pain COMPARISON: None. FINDINGS: BONES:No fracture, acute abnormality, or significant arthropathy. SOFT TISSUES:No visible soft tissue swelling. EFFUSION:None visible. SACRUM: No fracture, disruption of the sacral ala line, or cortical irregularity. COCCYX: No fracture or suspicious alignment. SOFT TISSUES: No widening of the sacroiliac joints. No radiopaque foreign body. OTHER: IMPRESSION: 1. No acute bone abnormality or significant degenerative changes of the hip joints. 2. Unremarkable sacroiliac joints. Electronically authenticated by: ALEM PASCUAL Date: 2022-10-27 09:15[facility]05-10-2023 Evaluation note* Encounter Date Diagnosis Assessment Notes Treatment Notes Treatment Clinical Notes October, Right hand pain (ICD-10 - M79.641) October, Trigger thumb, right thumb (ICD-10 - M65.311) This appears to trigger finger. We discussed the cause of this condition and the treatment options. We discussed stretching of the finger as well as massage of the palmar MCP region. We discussed the use of cortisone injection into the palmar aspect of the hand at the trigger site can be helpful in relieving painful symptoms. We also discussed the option of surgical release which can eliminate the problem. We performed a cortisone injection into the palmar aspect of the right thumb near at the A1 paulo under sterile technique. The patient tolerated this well without complication. We discussed that the finger may feel numb and tingle for hours after this injection. Patient advised to followup with neurosurgeon regarding left hand/arm numbness [email or web address] Other 01-18-2023 Evaluation note* Encounter Date Diagnosis Assessment Notes Treatment Notes Treatment Clinical Notes Jun, Cubital tunnel syndrome on left (ICD-10 - G56.22) Jun, Right carpal tunnel syndrome (ICD-10 - G56.01) Jun, Left carpal tunnel syndrome (ICD-10 - G56.02) Jun, Other specified postprocedural states (ICD-10 - Z98.890) Jun, Numbness of left crowley d (ICD-10 - R20.0) Discussed patient may be experiencing some level of compression at the cervical spine, versus neuropathy secondary to her diabetes. Extensive discussion about current condition and treatment options available. Based on relatively benign cervical spine radiographs, it appears more likely this is a neuropathy. We will have patient follow up with neurology as scheduled for further treatment options. Call with questions/concerns . [email or web address] Other 02-25-2022 Evaluation note* Encounter Date Diagnosis Assessment Notes Treatment Notes Treatment Clinical Notes Jul, Cubital tunnel syndrome on left (ICD-10 - G56.22) Patient doing well, progress as tolerated Jul, Left carpal tunnel syndrome (ICD-10 - G56.02) Jul, Other specified postprocedural states (ICD-10 - Z98.890) Jul, Numbness of right hand (ICD-10 - R20.0) We will refer patient for EMG right upper extremity [email or web address] Other 12-17-2021 Evaluation note* Encounter Date Diagnosis Assessment Notes Treatment Notes Treatment Clinical Notes May, Cubital tunnel syndrome on left (ICD-10 - G56.22) Patient is healing well and improving as expected. We will continue to give this more healing time. She can continue with activity as tolerated without restrictions. We will follow up with the patient in about 4 weeks. May, Left carpal tunnel syndrome (ICD-10 - G56.02) May, Other specified postprocedural states (ICD-10 - Z98.890) [email or web address] Other 10-20-2021 Evaluation note* Encounter Date Diagnosis Assessment Notes Treatment Notes Treatment Clinical Notes Mar, Cubital tunnel syndrome on left (ICD-10 - G56.22) EMG was reviewed. Based on location of pain and exam findings we will proceed with a left cubital tunnel release and a left carpal tunnel release. Risks and benefits of procedure explained to patient; patient verbalizes understanding. Mar, Left carpal tunnel syndrome (ICD-10 - G56.02) Mar, Pre-op exam (ICD-10 - Z01.818) [email or web address] Other 09-09-2021 NoteHNO ID: [id number] Author: Maris Ramirez APRN.ASPHALT ENGINEER Service: ? Author Type: Nurse Practitioner Type: Progress Notes Filed: 02/11/2021 7:54 AM Note Text: Chronic Pain Clinic Virtual Visit Evaluation Patient is identified by name and date of . This is a virtual visit using [employer] video visit. It required patient-provider interaction for the medical decision making as documented below. Date: February 10, 2021 - 7:34 AM Chief Complaint: lower back pain SUBJECTIVE: Jovana Xie is a 50 year old who presents to [facility] for a follow up appointment. She is seen by pain management for lower back pain. It radiates to the lateral legs down to her knee. She is s/p lumbar decompression surgery approx 4-5 years ago. She states that she was pain free up until about a year and a half ago when she had a fall. She relates that her pain is rated 5 today on 0-10 scale. It is exacerbated by standing and walking and alleviated by rest, medicaiton. The plan from the last visit on was: ? 1. MRI lumbar spine with and without contrast 2. Flexion/extension xrays of Lumbar spine 3. Ms. iXe to return to clinic to discuss results when completed Since the last office visit, she states her pain has been persistent. She has b/l foot and ankle swelling that at times goes up to her mid calf. Her feet and ankles are painful. She describes it as burring and spasms. Feels like it is pulsating. She has had this for about a year. She has had an EMG in the past for her LE's. She does not recall being advised that she has neuropathy. She has had multiple injections with her local pain physician in [place]. She does not recall the names of the injections, she states she is allergic to Dexamethasone. She is seen by [facility]. She is Rx'd Gabapentin 100 mg TID. She can not take higher doses due to nausea. She is also on Topamax 50 mg BID. Current Outpatient Medications: Current Outpatient Medications Medication Sig - albuterol (PROVENTIL) 2.5 mg /3 mL (0.083 %) nebulizer solution Albuterol Sulfate Active 1 INH Inhalation EVERY 4-6 HOURS February 14, 2018 11:07am - SYMBICORT 160-4.5 mcg/actuation inhaler Inhale 2 Puffs as instructed twice daily. - dicyclomine (BENTYL) 20 mg tablet TAKE 1 TABLET BY MOUTH EVERY 6 HOURS NEEDED FOR ABDOMINAL PAIN - famotidine (PEPCID) 40 mg tablet Famotidine Active 40 MG Oral Daily February 14, 2018 11:07am - gabapentin (NEURONTIN) 100 mg capsule Take 100 mg by mouth three times daily. - metFORMIN (GLUCOPHAGE) 500 mg tablet Metformin Active 500 MG Oral Daily February 14, 2018 11:07am - metoclopramide HCl (REGLAN) 10 mg tablet Take 10 mg by mouth every 6 hours as needed. - montelukast (SINGULAIR) 10 mg tablet Take 10 mg by mouth once daily. - nystatin (MYCOSTATIN) powder APPLY TO AFFECTED AREA 4 TIMES A DAY NEEDED - sertraline (ZOLOFT) 25 mg tablet TAKE 1 TABLET BY MOUTH EVERY DAY IN THE MORNING - SUMAtriptan (IMITREX) 100 mg tablet TAKE 1 TAB AT ONSET OF MIGRAINE,MAY REPEAT IN 2 HRS MAX 2 TABS/DAY, 2 TIMES A WEEK - topiramate (TOPAMAX) 25 mg tablet Take 25 mg by mouth twice daily. No current facility-administered medications for this visit. Exam: She is a very pleasant female, awake alert and oriented, comfortable and conversant. There is no sedation. Respirations are unlabored. Her thought processes are logical and organized. She points to her lower back and posterior legs as areas of pain. Also photos sent via [employer] were reviewed during this visit. New Imaging and Diagnostic Studies: No Lumbar MRI 01/27/21 IMPRESSION: 1. ?Degenerative changes of the lumbar spine without high-grade spinal canal stenosis. ?Foraminal stenosis is most pronounced bilaterally at L4-L5. ?No significant change since outside MRI from 11/18/2019. 2. ?Remote fractures of the L4 pars interarticularis bilaterally, likely present on outside MRI from 11/18/2019. 3. ?Remote postsurgical changes of right L4 hemilaminotomy. Anatomic Thoracic/Lumbar Variant: None. ?L4-5 is considered the level of the iliac crest and assume there are 5 lumbar-type vertebrae. 02/03/21 - XR Lumbar - flexion/extention: IMPRESSION: 1. ?No acute findings. 2. ?Transitional anatomy as above. 3. ?Mild L5-S1 degenerative spondylolisthesis without findings of dynamic instability. 4. ?Advanced lower lumbar facet arthrosis. ?Mild lower lumbar spondylosis. ASSESSMENT: M43.06 Lumbar spondylolysis (primary encounter diagnosis) M47.816 Facet arthropathy, lumbar M51.36 Degenerative disc disease, lumbar E66.01 Obesity, Class III, BMI 40-49.9 (morbid obesity) ([facility]) Jovana Xie is a 50 year old female with lower back pain that intermittently radiates down to her buttocks and posterior legs. She is s/p lumbar decompression surgery approx 4-5 years ago. She states that she was pain free up until about a year and a half ago (more content not included)...[facility]09-01-2021 NoteHNO ID: [id number] Author: RT Nikkie(R) Service: ? Author Type: Business Continuity Planning Director Type: Progress Notes Filed: 02/02/2021 5:23 PM Note Text: Radiology Service Progress Note PATIENT NAME: Jovana Xie DATE OF SERVICE: February 02, 2021 TIME: 5:23 PM PATIENT IDENTITY VERIFICATION COMPLETED USING TWO (2) IDENTIFIERS: Name and Date of confirmed by patient verbally. FALL SCREENING: Has the patient had 2 falls in the last year or 1 fall with injury or currently using an Ambulatory Assistive Device (Walker, Cane, Wheelchair, Crutches, etc.)? No PATIENT GENDER DATA: Female. status: : No status: NO. PATIENT RELEVANT IMPLANT DATA REVIEWED: Not Applicable RADIOLOGY DEPARTMENT: General X-ray: Exam(s) Completed: Spine X-Ray(s): Lumbar AP / LAT / L5-S1 / FLEX-EXT PERIPHERAL IV DATA: Not applicable SIGNED BY: Kourtney Johnson RT(R) February 02, 2021 5:23 [facility]08-26-2021 NoteHNO ID: [id number] Author: SHABANA Nelson Service: Radiology Author Type: Business Continuity Planning Director Type: Progress Notes Filed: 01/27/2021 10:27 AM Note Text: Radiology Service Progress Note DATE OF SERVICE: January 27, 2021 TIME: 10:02 AM PATIENT IDENTITY VERIFICATION COMPLETED USING TWO (2) STANDARD IDENTIFIERS: Name and Date of confirmed by patient verbally. FALL SCREENING: Has the patient had 2 falls in the last year or 1 fall with injury or currently using an Ambulatory Assistive Device (Walker, Cane, Wheelchair, Crutches, etc.)? No PATIENT GENDER DATA: Female. status: : No status: NO. PATIENT RELEVANT IMPLANT DATA REVIEWED: Yes ALLERGIES: Reviewed and unchanged CONTRAST ALLERGY: NO. EXAM: MRI - CONTRAST TYPE: GROUP II PERIPHERAL IV DATA: Ambulatory: A peripheral IV was started in the Right hand with a Butterfly: 25 gauge. RADIOLOGY DEPARTMENT: MR; Exam(s) Completed: Spine: Lumbar spine SIGNATURE: SHABANA Nelson PATIENT NAME: Jovana Xie DATE: January 27, 2021 TIME: 10:02 [facility]07-09-2021 NoteHNO ID: [id number] Author: Maegan Angulo MD Service: ? Author Type: Physician Type: Progress Notes Filed: 12/11/2020 9:37 AM Note Text: Chronic Pain Consult Note Date: December 10, 2020 - 4:01 PM Referring physician: Self This consult was requested by Self for my medical opinion. My final recommendations will be communicated to the referring physician by way of the shared medical record for internal providers or by letter via the [employer] for external providers. Chief Complaint: Back pain History of Present Illness: Jovana Xie is a 50 year old who presents to [facility] for a follow up appointment for low back pain. She states that she has had this pain for years. She has had lumbar decompression surgery approx 4-5 years ago. She states that she was pain free up until about a year and a half ago when she had a fall. She states that after her fall she had knee pain and was told that it was her back pain that was causing her knee pain. Per MRI report that was brought with her to her appt she has degenerative facet arthropathy at L5-S1. She was being treated by [facility] management [facility] and was receiving steroid injections with moderate relief of pain for 1 week. She states that her pain management physician wanted to do an ablation but she sought a second opinion and per patient she was discharged from his practice which meant she was also cut off her Tylenol #3 prescription. She states the Tylenol #3 was helping. She states that the pain is in her lower back and intermittently radiates down her buttocks or up her back at times. The patient is unable to describe the pain. The pain is constant. The pain is partially relieved by lying down, the pain is exacerbated by standing or walking. The patient denies difficulty with bowel or bladder control, unintentional weight loss and fevers, chills, or night sweats. Previous pain treatments: physical therapy, medications, surgery, injections Physical Therapy/Home Exercise: Yes Pain Medications: - Opioids: none - NSAIDs: none - Anti-Depressants: zoloft 25 mg daily, topamax 25 mg BID - Anti-Convulsants: neurontin 100 mg TID - Others: NA OARRS Report: Reviewed: The patient's OARRS report was reviewed and is consistent with the reported medication use. Pain medications reviewed: Yes Past Medical History: PAST MEDICAL HISTORY Diagnosis Date - Anxiety state - Arthritis - COPD (chronic obstructive pulmonary disease) (HCC) - Essential hypertension - Insulin resistance - Tobacco use disorder Past Surgical History: PAST SURGICAL HISTORY Procedure Laterality Date - PAST SURGICAL HISTORY OF BACK SURGERY DUE TO HERNIATED DISC X6 - PAST SURGICAL HISTORY OF Bilateral KNEE SCOPE - REMOVAL GALLBLADDER - VAGINAL HYSTERECTOMY Family History: FAMILY HISTORY Adopted: Yes Social History: Alcohol Use: Never Tobacco Use: .5 packs/day Types: Cigarettes Drug Use: Yes Occupation: off work for now due to pain, seeking disability Psychiatric History: depression, anxiety Allergies: ALLERGIES Allergen Reactions - Dexamethasone GI Upset HAIR LOSS - Penicillins Other: See Comments HIGH FEVER-CHILLS Current Outpatient Medications: Current Outpatient Medications Medication Sig - albuterol (PROVENTIL) 2.5 mg /3 mL (0.083 %) nebulizer solution Albuterol Sulfate Active 1 INH Inhalation EVERY 4-6 HOURS February 14, 2018 11:07am - SYMBICORT 160-4.5 mcg/actuation inhaler Inhale 2 Puffs as instructed twice daily. - dicyclomine (BENTYL) 20 mg tablet TAKE 1 TABLET BY MOUTH EVERY 6 HOURS NEEDED FOR ABDOMINAL PAIN - famotidine (PEPCID) 40 mg tablet Famotidine Active 40 MG Oral Daily February 14, 2018 11:07am - gabapentin (NEURONTIN) 100 mg capsule Take 100 mg by mouth three times daily. - metFORMIN (GLUCOPHAGE) 500 mg tablet Metformin Active 500 MG Oral Daily February 14, 2018 11:07am - metoclopramide HCl (REGLAN) 10 mg tablet Take 10 mg by mouth every 6 hours as needed. - montelukast (SINGULAIR) 10 mg tablet Take 10 mg by mouth once daily. - nystatin (MYCOSTATIN) powder APPLY TO AFFECTED AREA 4 TIMES A DAY NEEDED - sertraline (ZOLOFT) 25 mg tablet TAKE 1 TABLET BY MOUTH EVERY DAY IN THE MORNING - SUMAtriptan (IMITREX) 100 mg tablet TAKE 1 TAB AT ONSET OF MIGRAINE,MAY REPEAT IN 2 HRS MAX 2 TABS/DAY, 2 TIMES A WEEK - topiramate (TOPAMAX) 25 mg tablet Take 25 mg by mouth twice daily. - iv contrast (will be provided with radiology test) MRI LSP Inject, intravenously, once for 1 dose. No IV access, insert saline lock prior to the beginning of sedation, infusion, injection of imaging exam. Discontinue saline lock post exam. If Pt. has a central line or IVAD, may access for administration according to line specific nursing protocol. Once exam is complete flush line and de-access according to line specific nursing protocol (more content not included)...[facility] Evaluation + Plan note No data available for this section [facility] Future Appointments Appointment Date:10/25/2023 09:30:00 AM Scheduled Provider:Melissa Erazo MD [facility] Appointments Appointment Date:10/22/2023 10:30:00 AM Scheduled Provider: Location:[facility] Appointment Type:Surgery FT Appointment Date:10/25/2023 09:30:00 AM Scheduled Provider:Melissa Erazo MD Location:[facility] Appointment Type:[facility] Evaluation + Plan note Future Appointments Appointment Date:11/27/2023 09:15:00 AM Scheduled Provider:Melissa Erazo MD Location:[facility] Appointment Type:[facility] evaluation noteNo assessment information available [facility] Work Phone: Evaluation noteNort [employer] Other Evaluation note* Diagnosis Facet arthropathy, lumbar Lumbosacral spondylosis without myelopathy Degenerative disc disease, lumbar Degeneration of lumbar or lumbosacral intervertebral disc documented in this encounter [facility] general Narrative - Reported* Type Description Date Medical History CARPAL TUNNEL Medical History HTN Medical History hyperglycemia Surgical History HYSTERECTOMY Surgical History TONSILECTOMY Surgical History BACK SURGERY Surgical History cholecystectomy Surgical History dental surgery Hospitalization History See Above [facility] ExpertFile Other History general [facility] - [facility] [employer] Other Hospital Discharge instructions No data available for this section [facility] No data available for this section [facility] Summary Purpose Family History No Family History Records Found Relationship Condition Age at Onset Recorded Date/T priya Not Specified Adopted Unknown daughter Lupus Unknown family member Heart disease Unknown Advance Directives No Advanced Directives Records Found Advance Directive Response Recorded Date/ Time Advance Directives No February 12:34pm Advance Directive Response Recorded Date/ Time Advance Directives No February 11:34am Chief Complaint and Reason for Visit Chief Complaint Carpal Tunnel Carpal Tunnel Chief Complaint Carpal Tunnel Carpal Tunnel Carpal Tunnel Chief Complaint R20.0 Reason for Referral Reason Refer to [facility] or Dr Padmini nath for EMG right upper ext Diagnosis 1 Numbness of right ro[place] nd (R20.0) Referral Organization [facility] Referring Provider First Name Charu Referring Provider Last Name Jaylondominga Referring Provider Specialty Hand Surger y Referred Organization Unknown Facility Referred Provider Specialty Neurology Referral Priority Routine Additional Source Comments INFORMATION SOURCE (unrecogn ized section and content) DATE CREATED AUTHOR 07/07/2021 [facility] DATE CREATED AUTHOR AUTHOR'S ORGANIZ ATION 11/10/2022 [facility] DATE CREATED AUTHOR AUTHOR'S ORGANIZ ATION 10/30/2023 [facility] DATE CREATED AUTHOR AUTHOR'S ORGANIZ ATION 12/05/2023 [facility] DATE CREATED AUTHOR AUTHOR'S ORGANIZ ATION 12/19/2023 [facility] Care Teams (unrecognized sec tion and content) Team Status: Inactive Member Role Status Dates Charu Pham MD Attending Provider Active Elvia Sweeney MD Primary Care Provider Active Team Status: Active Member Role Status Dates Elvia Sweeney MD Primary Care Provider Active Team Status: Inactive Member Role Status Dates Elvia Sweeney MD Primary Care Provider Active Charu Pham MD Attending Provider Active Fire Lieutenant Relationship Specialty Start Date End Date Asha Louis PA-C [address] [place] [address] Referring Neurology 12/09/20 Goals (unrecognized section and content) Goals may be documented in a n alternate sectionNo InformationNo InformationNo InformationGoals may be documented in an alternate sectionNo Information No data available for this sectionGoals may be documented in an alternate sectionNo InformationNo Information No data available for this section No data available for this section No data available for this section No data available for this section REASON FOR VISIT (unrecogniz ed section and content) Left Upper Extremity PainRec heck Left HandRecheck Left Cubital Tunnel ReleaseLeft Capral TunnelRight Thumb PainRecheck Right Thumb Source Comments (unrecognize d section and content) In the event this informatio n is protected by the Federal Confidentiality of Alcohol and Drug Abuse Patient Records regulations: The Federal rules restrict any use of the information to criminally investigate or prosecute any alcohol or drug abuse patient.[facility] FOR RECORDS PERTAINING TO PATIENTS WHO ARE OR HAVE BEEN ENROLLED IN A CHEMICAL DEPENDENCY/SUBSTANCEABUSE PROGRAM, SOME INFORMATION MAY BE OMITTED. This clinical summary was aggregated from multiple sources. Caution should be exercised in using it in the provision of clinical care. This summary normalizes information from multiple sources, and as a consequence, information in this document may materially change the coding, format and clinical context of patient data. In addition, data may be omitted in some cases. CLINICAL DECISIONS SHOULD BE BASED ON THE PRIMARY CLINICAL RECORDS. [facility] [employer] [facility]. provides no warranty or guarantee of the accuracy or completeness of information in this document.
== END 2023-12-19 19:42 | disposition home or self-care (01) ==
LOC: SLEEP 20:03
PROVIDERS: PCP Nurse Practitioner; Visit Provider Nurse Practitioner
DX: G47.33 Obstructive sleep apnea (adult) (pediatric) (principal)
CPT/HCPCS: 95810

== ENCOUNTER 2023-12-25 08:59 | Outpatient (OUT) | payer MEDICARE, SELFPAY ==
--- NOTE | 2023-12-25 09:00 | CA_ITS ---
Patient Name: AGNES ROSSI MR#: [id number] : 1970 Exam Date: 12/25/2023 Ordering Doctor: MEGAN MURPHY ECHOCARDIOGRAM REPORT PROCEDURE: CA ECHO DOPPLER COMPLETE INDICATIONS: Dyspnea on exertion, hypertension, diabetes, smoker COMPARISON: None. DESCRIPTION: COMPLETE ECHOCARDIOGRAM Real-time transthoracic echocardiography with 2D, M-mode, spectral and color flow Doppler performed. QUALITY: Technical quality was good. LEFT VENTRICLE: Normal chamber size. Mild concentric left ventricular hypertrophy. Normal systolic function. LV EF: Normal left ventricular ejection fraction, (>55%). DIASTOLIC: Diastolic function is indeterminate. ATRIAL SEPTUM: LEFT ATRIUM: Normal chamber size. RIGHT ATRIUM: Normal chamber size. RIGHT VENTRICLE: Normal chamber size. Normal right ventricular systolic function. TRICUSPID VALVE: Normal mobility and thickness. No stenosis with no regurgitation. Unable to assess right-sided pressures due to lack of measurable tricuspid regurgitation. MITRAL VALVE: Normal mobility and thickness. No evidence of mitral valve stenosis. There is no mitral annular calcification. No mitral regurgitation. AORTIC VALVE: Normal trileaflet appearance. No visible sclerosis. Normal leaflet mobility. No evidence of aortic valve stenosis. No aortic regurgitation. AORTIC ROOT: Normal diameter and appearance. Ascending aorta is normal in size. PULMONIC VALVE: Normal thickness and mobility. No stenosis. No regurgitation. PERICARDIUM: No evidence of pericardial effusion. IVC: IVC is normal in size, does not collapse. PLEURA: CONCLUSION: 1. Mild concentric left ventricular hypertrophy with normal systolic function. LVEF is estimated at 60 to 65%. 2. Normal right ventricular size and systolic function. 3. No significant valvular dysfunction. 4. Unable to assess right-sided pressures due to lack of measurable tricuspid regurgitation. Adult Echocardiography Procedure Report Left Ventricle LVEDD (3.7 - 5.6 cm): 4.81 cm LVESD (2.2 - 4.0 cm): 3.25 cm LVIVS thickness (0.6 - 1.2 cm): 1.43 cm LVPW thickness (0.5 - 1.0 cm): 1.18 cm e': 0.08 m/s E - e': 8.70 LVOT Max Gradient: 1.14 mm[Hg] LVOT Area (cm2): 0.53 m/s Peak Velocity (LVOT): 0.53 m/s Mean Velocity (LVOT): 0.35 m/s LVOT Diameter 2.52 cm Left Atrium LA Volume Index (2D A2C): 35.32 ml/m2 Left Atrium Systolic Dimension: 3.90 cm Mitral Valve MV E to A Ratio: 0.90 Mitral Valve A-Wave Peak Velocity: 0.80 m/s Mitral Valve E-Wave Peak Velocity: 0.71 m/s Right Ventricle Aorta AO Root Diam: 3.75 cm Ascending Ao Diam: 3.13 cm Aortic Valve AoV Area (Peak Hari): 3.47 cm2, 3.47 cm2 AoV Area (VTI): 3.74 cm2, 3.74 cm2 Peak Velocity(Antegrade Flow): 0.76 m/s Peak Gradient(Antegrade Flow): 2.34 mm[Hg] Mean Velocity(Antegrade Flow): 0.50 m/s Mean Gradient(Antegrade Flow): 1.14 mm[Hg] Velocity Time Integral: 17.12 cm Tricuspid Valve Pulmonic Valve Mean Gradient: 1.75 mm[Hg] Mean Velocity: 0.60 m/s Peak Velocity: 0.94 m/s, 0.87 m/s Peak Gradient: 3.55 mm[Hg], 3.02 mm[Hg] Right Atrium Right Atrium Systolic Pressure: 63.17 ml, 63.17 ml Dictated by: Jose Figueroa M.D. on 12/26/2023 at 15:53 Approved by: Jose Figueroa M.D. on 12/26/2023 at 15:56
== END 2023-12-25 09:00 | disposition home or self-care (01) ==
LOC: CARD 08:59
PROVIDERS: PCP Nurse Practitioner; Visit Provider Nurse Practitioner
DX: I10 Essential (primary) hypertension (principal); R06.09 Other forms of dyspnea
CPT/HCPCS: 93306

== ENCOUNTER 2023-12-26 08:29 | Outpatient (OUT) | payer MEDICARE, SELFPAY ==
--- OUTSIDE RECORDS SUMMARY | 2023-12-26 08:42 | XMS_ITS | CCD ---
Author Organization [facility] Care Team Providers Care Hazardous Substances Engineer Name Role Phone MD Charu Pham Attending Provider MD Elvia Sweeney Primary Care Provider Charu Pham Unavailable MD Elvia Sweeney Primary Care Provider MD Charu Pham Attending Provider [phone] ELVIA SWEENEY Primary Care Physician [phone] MD Elvia Sweeney Primary Care Provider MD Charu Pham Attending Provider SWEENEY ., DR ELVIA Alex Attending Unavailable SWEENEY ., DR ELVIA Alex Consulting Unavailable SWEENEY ., DR ELVIA Alex Admitting Unavailable SWEENEY ., DR ELVIA Alex Primary Care Unavailable SWEENEY ., DR ELVIA Alex Primary Care Unavailable ALGHOCRISTINA, NAVDEEP Admitting Unavailable MAYANK, MOHAMAD Attending Unavailable MONE, DR SALINAS Admitting Unavailable SWEENEY ., DR ELVIA Alex [...] MAHAN Attending Unavailable JOHANNA MAHAN Consulting Unavailable ANKUR, DR ALEM Amado Consulting Unavailable RENALDO, ASHA Admitting Unavailable MELISSA [...] ., DR ELVIA Alex Primary Care Unavailable [employer], DR EULALIA West Consulting Unavailable Renaldobing BRIAN, Asha Unavailable Melissa Erazo Primary Care Physician [phone] MEGAN MURPHY Attending Unavailable NAVDEEP TALLEY Attending Unavailable LUÍS WOOTEN Attending Unavailable LUÍS WOOTEN Attending Unavailable Edenilson Moyer Attending Unavailab Edenilson Caballero Admitting Unavailab Elvia Velasco Primary Care Unavailable Melissa Erazo Attending Unavailable Melissa Erazo Attending Unavailable Melissa Erazo Attending Unavailable Melissa Erazo Attending Unavailable Melissa Erazo Attending Unavailable Melissa Erazo Attending Unavailable Melissa Erazo Attending Unavailable Momario, Mohamad A. Admitting Unavailable Moamrio Mohamad A. Attending Unavailable Steffanie Mohamad A. Referring Unavailable Melissa Erazo Admitting Unavailable Melissa Erazo Attending Unavailable Navdeep Valiente ASantos Attending Unavailable Steffanie Mohamad A. Attending Unavailable Melissa Erazo Referring Unavailable Allergies Allergy Classification Reported Allergen(s) Allergy Type Date of Onset Reaction(s) Facility (20 sources) Dexamethasone; Translations: [dexamethasone] Drug Allergy 12-11-19 21 Unknown (qualifier value), GI Upset [facility] (8 sources) Penicillins; Translations: [Penicillins] Allergy to substance 02-12-20 13 Other: See Comments [facility] (5 sources) Penicillins (Antibiotic) Propensity to adverse reactions [facility] Other (8 sources) Penicillin; Translations: [penicillin] Drug Allergy Unknown (qualifier value) [facility] (6 sources) predniSONE; Translations: [prednisone] Drug Allergy Unknown (qualifier value) [facility] (1 source) Acetaminophen / HYDROcodone; Translations: [HYDROCODONE-ACET AMINOPHEN] Drug Allergy 06-23-19 17 [facility] Repository (1 source) Lisinopril; Translations: [LISINOPRIL] Drug Allergy 05-15-20 [facility] Repository (1 source) Dexamethasone; Translations: [Decadron] Drug Allergy [facility] Repository Medications Current Medications Medication Drug Class(es) Dates Sig (Normalized) Sig (Original) 3 ML semaglutide 1.34 MG/ML Pen Injector [Ozempic] (4 sources) Start: 09-25-2023 inject 1 mg by subcutaneous injection every week Ozempic (1 mg dose) 4 mg/3 mL subcutaneous solution See Instructions, INJECT 1 MG SUBCUANEOUSLY WEEKLY, # 9 mL, Refills(s) 3, Pharmacy: [facility], 162, cm, 09/25/23 13:12:00 EDT, [...] Hyclate Active 100 MG PO Twice daily 10 September 22, 2021 12:00am Start: 04-14-2021 End: 09-15-2021 [...] 01, 2021 12:00am take 1 capsule by [facility] every twenty-four hours DULoxetine HCl 60 MG 1 capsule Orally Once a day Active take 1 capsule by mo ut every twenty-four hours DULoxetine HCl 30 MG [...] Daily, # 90 tab(s), Refills(s) 0, Pharmacy: [facility], 162, cm, 09/25/23 13:12:00 EDT, [...] Daily, # 90 tab(s), Refills(s) 0, Pharmacy: [facility], 162, cm, 09/25/23 13:12:00 EDT, [...] DAY, # 90 tab(s), Refills(s) 3, Pharmacy: [id number], 162, cm, 09/25/22 11:02:00 EDT, Height/Length Dosing, [...] 15, 2021 1:43pm take 1 capsule by [facility] once daily Omeprazole 40 MG 1 capsule 30 minutes before morning meal Orally Once a day Active Ozempic (3 sources) Ozempic Active polyethylene glycol 3350 98226 mg powder for oral solution (3 sources) [...] mg, SubCutaneous, qWeek, 6 EA, Refill(s) 0, [facility]/pharmacy #[id number], 162, cm, 09/25/22 11:02:00 EDT, Height/Length [...] Hypertensive disorder; Translations: [Essential (primary) hypertension] Onset: 2 09-25-2022 Chronic Headache; including migraine (5 sources) Headache 09-01-2022 Episodic Hemorrhoids (5 sources) Hemorrhoids 09-01-2022 Episodic Hypertension with complications and secondary hypertension (2 sources) Hypertensive heart disease without heart failure; Translations: [Hypertensive heart disease without heart failure] Onset: 4 Chronic Joint disorders and dislocations; trauma-related (5 sources) Derangement of knee 09-01-2022 Chronic Nonspecific chest pain (2 sources) Other chest pain; Translations: [Other chest pain] Onset: 4 Episodic Nutritional deficiencies (6 sources) Deficiency of vitamin [...] not elsewhere classified] Onset: 4 Episodic Other lower respiratory disease (2 sources) Other forms of dyspnea; Translations: [Other forms of dyspnea] Onset: 4 Episodic Other nervous system disorders [...] caused by energy imbalance 11-14-2023 Chronic Other nutritional; endocrine; and metabolic disorders (2 sources) Morbid (severe) obesity due to excess calories; Translations: [Morbid (severe) obesity due to excess calories] Onset: 3 Chronic Other screening for suspected conditions (not mental disorders or infectious disease) (9 sources) Encounter for screening mammogram for malignant neoplasm of breast; Translations: [Encounter for screening for malignant neoplasm of cervix] Onset: 2 Episodic Residual codes; unclassified (6 sources) Obstructive sleep apnea (adult) (pediatric); Translations: [...] both cervix and uterus] Onset: 4 Episodic Residual codes; unclassified (2 sources) Inadequate sleep hygiene; Translations: [Inadequate sleep hygiene] Onset: 4 Episodic Spondylosis; intervertebral disc disorders; [...] Results Test Name Value Interpretation Reference Range Facil itsachi 37on 12-14-2023 37 Increase Carvedilol to 25 mg twice a day Call office for any concerns- increased fatigue, shortness of breath, lightheadedness/diz ziness or any concerns Orders for sleep study, stress test and echcocardiogram Normal [facility] Office Visiton 12-14-2023 Follow-up visit [id number] Jovana Xie 1970 F Date Provider Department Center 12/14/2023 MEGAN GUO CARD [facility] Family History Problem Relation Age of Onset Coronary artery disease Mother Other Mother Family Status - Relation Status Age at Mother Level of Service:54657 [place] OFFICE/OUTPATIENT ESTABLISHED MOD MDM 30 MIN Normal [facility] Family Medicine Office/Clini c Noteon 12-13-2023 Family [...] CDC-Falls Prevention and home safety screening reviewed. [place] Advance Directives reviewed. Patient provided with education [...] follow up visits. Patient follows up with Manager Bridge, last visit notes available in chart and [...] DM medica (more content not included)... Normal [facility] Comment on above: Result Comment: Elec tronically Signed By: Melissa Erazo MD\.br\Date and Time Signed: 12/13/23 08:15 EDT\.br\Electronically Co-Signed By: Sophie Cano\.br\Date and Time Co-Signed: 12/03/23 15:44 EDT Ambulatory [...] (10/22/2023), Esophagogastroduode noscopy (10/22/2023), Cardiac catheter (2005), [facility] - Total abdominal hysterectomy and bilateral salpingo-oophorecto my (01/15/2004), Arthroscopy, History of lumbar spine surgery, Tonsillectomy and adenoidectomy. Discharge Vitals Heart Rate (Peripheral) 65 Blood Pressure 130/70 Height 161.5 cm Height 64 in Weight 123.7 kg Weight 272.14 lb BMI 47.43 What to do next Scheduled Follow-Up Appointments 2023 2:00 PM EDT With: Freeman AIKEN, Melissa Mary Where: [place] [id number] \.br\ Medications\.br\ What How Much When Instructions\.br\ [...] \.br\ Some fast-acting carbs are:\.br\ ? \.br [facility] Consultation Noteon 11-28-19 24 Consultation Note [id number] 1C#1.00TIFF Normal [facility] Ambulatory Visit Summaryon 0 11-27-2023 Ambulatory [...] Follow-Up Appointments Sunday 11:00 AM EDT Where: [facility] [place] Normal [facility] Medicine Office/Clini c Noteon 11-27-2023 Family Medicine Office/Clinic Note HPI Staff Jovana is a 53 year old female presenting for one month follow up htn Patient is here for follow up on hypertension. How often are you checking your blood pressure? Daily What are your average readings? feels it's good Yearly BMP: 09/25/23 questions/concerns; says the shirlene slater is driving her nuts, has appt cardiology the History of Present Illness Pt here for [...] the ER - Concerns discussed with [facility] that its when she coughs that her [...] Primary malignant neoplasm of female breast: Mother. Normal [facility] Comment on above: Result Comment: Elec [...] oz glass (more content not included)... Normal [facility] RAD - CT Reporton 11-15-2023 RAD - CT Report [id number] F#1.00TIFF Normal [facility] Ambulatory Visit Summaryon 0 11-14-2023 Ambulatory [...] Follow-Up Appointments Sunday 9:15 AM EDT With: Freeman AIKEN, Melissa Mary Where: [facility] [place] Normal [facility] Gastroenterology Office/Clin ic Noteon 11-14-2023 Gastroenterology [...] 50 mg (more content not included)... Normal [facility] Comment on above: Result Comment: Elec tronically Signed By: Steffanie AIKEN, Navdeep Rodríguez\.br\Date and Time Signed: 11/14/23 12:56 EDT Consultation Noteon 11-01-19 Consultation Note [id number] 8#1.00TIFF Normal [facility] Family Medicine Office/Clini c Noteon 10-30-2023 Family Medicine [...] and down Yearly BMP: 09/25/23 questions/concerns: saw loan supervisor and wearing a heart monitor. she was called yesterday by loan supervisor [facility] and he put her on a blood [...] atrial fibrillation) - As above - Please shredder picker the elquis. 4. Colon polyp (K63.5: Polyp of colon) - Per Patient. - Following with GI. Orders: metoprolol, 25 mg = 1 tab(s), Oral, Daily, # 90 tab(s), Refills(s) 0, Pharmacy: [facility]/pharmacy #[id number], 162, cm, 10/30/23 9:51:00 EDT, Height/Length [...] Primary malignant neoplasm of female breast: Mother. [facility] Comment on above: Result Comment: Elec tronically Signed By: Freeman AIKEN, Melissa Peterson.br\Date and Time Signed: 10/30/23 10:17 EDT IntraOperative Documentson 0 10-26-2023 IntraOperative Documents [id number] 0451#1.00TIFF [facility] Postoperative Documentson Postoperative Documents [id number] 0988#1.00TIFF [facility] Consenton 10-23-2023 Consent [id number] 67#1.00TIFF [facility] Discharge Instructionson Discharge Instructions [id number] 80#1.00TIFF Normal [facility] Main OR Intraoperative Recor don 10-23-2023 Main OR Intraoperative Record IntraOp Document Type FT Summary Primary Physician: Navdeep Valiente MD Finalized Date/Time: 10/23/23 11:51:00 Pt. Name: JOVANA XIE Dorcas/Sex: 1970 Female Med Rec #: [id number] Physician: Navdeep Valiente MD Financial #: [id number] Pt. Type: O Room/Bed: / Admit/Disch: 10/22/23 09:21:35 - 10/22/23 23:59:59 Institution: Case Times FT Entry 1 Patient Times In Room 10/22/23 10:23:00 Out Room 10/22/23 10:51:00 Procedure Times Start 10/22/23 10:30:00 Stop 10/22/23 10:47:00 Anesthesia Times Start 10/22/23 10:23:00 Stop 10/22/23 10:51:00 Time at [facility] 10/22/23 10:37:00 Last Modified By: Maki Brunner RN 10/22/23 10:49:12 General Comments: 1033-EGD completed/AW RN 1035-Colonoscopy started/AW RN 10/23/23 Chart opened for charge review per Rito Aldana RN. [place] Case Attendance FT Entry 1 Entry 2 Entry 3 Case Attendee Kylee CEE, Pa Oliveira, Camille Clemons ROUGH AND TRUING MACHINE OPERATOR, Radha Abebe Role Performed Anesthesiologist Scrub - Primary Staff - Other Environmental Health Nurse Time In 10/22/23 10:23:00 10/22/23 10:23:00 10/22/23 10:23:00 Time Out 10/22/23 10:51:00 10/22/23 10:51:00 10/22/23 10:51:00 Procedure EGD AND COLONOSCOPY(.) EGD AND COLONOSCOPY(.) EGD AND COLONOSCOPY(.) Comments supervising help in room Last Modified By: Kannan SWAIN, Maki Brunner RN, Maki Liu RN 10/22/23 10:49:13 10/22/23 10:49:13 10/22/23 10:49:13 Entry 4 Entry 5 Case Attendee Steffanie AIKEN, Navdeep Brunner RN, Maki Role Performed Surgeon - Primary Missile Inspector Preflight - Primary Time In 10/22/23 10:23:00 10/22/23 10:23:00 Time Out 10/22/23 10:51:00 10/22/23 10:51:00 Procedure EGD AND COLONOSCOPY(.) EGD AND COLONOSCOPY(.) Comments Last Modified By: Kannan SWAIN, Maki Brunner RN, Maki 10/22/23 10:49:13 10/22/23 [...] Sotelo Given Participants Roxanne Wilkinson Micala E, Schafer CST, Steffanie Egan MD, Kannan Mireles RN, Angela Time Out Complete 10/22/23 10:27:00 Outcomes Met? Yes Last Modified By: Maki Brunner RN 10/22/23 10:28:39 Post-Care Text: The patient [...] colon polypectomy Primary Procedure Yes Primary Surgeon Navdeep Valiente MD Start 10/22/23 10:30:00 Stop 10/22/23 10:47:00 Anesthesia [...] and tissue Entry 1 Skin Integrity Intact, [place], Warm, and Skin Abnormality No Dry Outcomes Met? Yes Last Modified By: Maki Brunner RN 10/22/23 10:29:47 Post-Care Text: The patient is free from signs and symptoms of injury caused by extraneous objects Patient Positioning FT Pre-Care Text: Identifies physical alterations that require additional precautions for procedure-specific (more content not included)... Normal [facility] Consent for Treatmenton 10-03 Consent for Treatment [id number] 5A#1.00TIFF [facility] Discharge Instructionson Discharge Instructions JOVANA XIE :1970 Visit Date:10/22/2023 Inpatient Discharge Instructions Your Care Team Admitting Physician - Navdeep Valiente MD Referring Physician - Navdeep Valiente MD [...] qualifying data available. Previously Scheduled Follow-Up Appointments Sunday. 2023 9:45 AM EDT With: Freeman AIKEN, Melissa Mary Where: [facility] Comment on above: Result Comment: Elec tronically Signed By: Daniel SWAIN, Lorri\.br\Date and Time Signed: 10/22/23 11:00 EDT Gurmeet [...] WEEKLY, # 9 mL, Refills(s) 3, Pharmacy: [facility], 162, cm, 09/25/23 13:12:00 EDT, Height/Length Dosing, 121.7, kg, 09/25/23 13:12:00 EDT, Weight Dosing hydrochlorothiazide 25 mg Tab: 25 mg = 1 tab(s), Oral, Daily, # 90 tab(s), Refills(s) 0, Pharmacy: [facility], 162, cm, 09/25/23 13:12:00 EDT, Height/Length Dosing, 121.7, kg, 09/25/23 13:12:00 EDT, Weight Dosing losartan 100 mg Tab: 100 mg = 1 tab(s), Oral, Daily, # 90 tab(s), Refills(s) 0, Pharmacy: [facility], 162, cm, 09/25/23 13:12:00 EDT, Height/Length Dosing, 121.7, kg, 09/25/23 13:12:00 EDT, Weight Dosing metformin 500 mg Tab: See Instructions, TAKE 1 TABLET BY MOUTH EVERY DAY, # 90 tab(s), Refills(s) 3, Pharmacy: [id number], 162, cm, 09/25/22 11:02:00 EDT, Height/Length Dosing, [...] 3. Normal duodenum. Images Procedure images: Rec1_hd_video_2023_ _[id number]. jpg Rec1_hd_video__[id number]. jpg Rec1_hd_video__T09_[id number]. jpg Rec1_hd_video__[id number]. jpg Rec1_hd_video__T09_[id number]. jpg Rec1_hd_video__[id number]. jpg . Post-Procedure Complications: none. Estimated blood loss: minimal. Specimens: sent to pathology. Devices/ implants: none left in place. Impression and Plan gastropathy Nonobstructing Schatzki's ring Hiatal hernia Recommendations: -Resume previous diet -Resume home medications -Avoid NSAIDs -Await pathology results, follow in GI clinic in 1-2 after discharge Normal [facility] Comment on above: Other Comment: Latha sim Attachment - attachment storage system not supported [id number] Can be viewed in source systemMissing Attachment - attachment storage system not supported [id number] Can be viewed in source systemMissing Attachment - attachment storage system not supported [id number] Can be viewed in source systemMissing Attachment - attachment storage system not supported [id number] Can be viewed in source systemMissing Attachment - attachment storage system not supported [id number] Can be viewed in source systemMissing Attachment - attachment storage system not supported [id number] Can be viewed in source system Colonoscopy Procedure Report Patient: JOVANA XIE Age: 53 years Sex: Female : 1970 Associated Diagnoses: None Author: Navdeep Valiente MD Pre-Procedure Procedure Date 10/22/2023 10:52:00 . Procedure Type: Colonoscopy with removal of tumor(s), polyp(s), or other lesion(s) by cold snare technique. Procedure provider Performed by Navdeep Valiente MD. Current history and physical Documented on chart. Cardiac catheter ([id number]) in 2005 at 36 Years. [facility] - Total abdominal hysterectomy and bilateral salpingo-oophorecto my ([id number]) on 01/15/2004 at 33 Years. Tonsillectomy and adenoidectomy ([id number]). Arthroscopy ([id number]). Comments: 09/01/2022 10:00 Daija Mendosa LPN left and right, separate times History of lumbar spine surgery ([id number]). Comments: 09/01/2022 10:01 Daija Mendosa LPN L4-L5 disc December 2015. Past Medical History No active or resolved past medical history items have been selected or recorded.. Family History Patient was adopted. Diabetes mellitus type 1 Father Primary malignant neoplasm of female breast Mother . Procedure History Cardiac catheter ([id number]) in 2005 at 36 Years. [facility] - Total abdominal hysterectomy and bilateral salpingo-oophorecto my ([id number]) on 01/15/2004 at 33 Years. Tonsillectomy and adenoidectomy ([id number]). Arthroscopy ([id number]). Comments: 09/01/2022 10:00 Daija Mendosa LPN left and right, separate times History of lumbar spine surgery ([id number]). Comments: 09/01/2022 10:01 EDT - Zara MILLERDaija L4-L5 disc December 2015. Colorectal neoplasm risk [...] WEEKLY, # 9 mL, Refills(s) 3, Pharmacy: [facility], 162, cm, 09/25/23 13:12:00 EDT, Height/Length Dosing, 121.7, kg, 09/25/23 13:12:00 EDT, Weight Dosing hydrochlorothiazide 25 mg Tab: 25 mg = 1 tab(s), Oral, Daily, # 90 tab(s), Refills(s) 0, Pharmacy: [facility], 162, cm, 09/25/23 13:12:00 EDT, Height/Length Dosing, 121.7, kg, 09/25/23 13:12:00 EDT, Weight Dosing losartan 100 mg Tab: 100 mg = 1 tab(s), Oral, Daily, # 90 tab(s), Refills(s) 0, Pharmacy: [facility], 162, cm, 09/25/23 13:12:00 EDT, Height/Length Dosing, 121.7, kg, 09/25/23 13:12:00 EDT, Weight Dosing metformin 500 mg Tab: See Instructions, TAKE 1 TABLET BY MOUTH EVERY DAY, # 90 tab(s), Refills(s) 3, Pharmacy: [facility], 162, cm, 09/25/22 11:02:00 EDT, Height/Length Dosing, 138.5, kg, 09/25/22 11:02:00 EDT, Weight Dosing Documented Medications Documented Nurte ODT 75 mg oral tablet, disintegratin mg [...] with cold snare completely Images Procedure images: Rec_hd_video__[id number]. jpg Rec_hd_video__[id number]. jpg Rec_hd_video__[id number]. jpg Rec_hd_video__51_11_[id number]. jpg Rec_hd_video__52_[id number]. jpg Rec_hd_video__53_[id number]. jpg Rec_hd_video_2023_ 05_20T09_[id number]. jpg Rec1_hd_video_20 (more content not included)... Normal [facility] Comment on above: Other Comment: Latha sim Attachment - attachment storage system not supported [id number] Can be viewed in source systemMissing Attachment - attachment storage system not supported [id number] Can be viewed in source systemMissing Attachment - attachment storage system not supported [id number] Can be viewed in source systemMissing Attachment - attachment storage system not supported [id number] Can be viewed in source systemMissing Attachment - attachment storage system not supported [id number] Can be viewed in source systemMissing Attachment - attachment storage system not supported [id number] Can be viewed in source systemMissing Attachment - attachment storage system not supported [id number] Can be viewed in source systemMissing Attachment - attachment storage system not supported [id number] Can be viewed in source system Esophagogastroduod enoscopy Patient: JOVANA XIE Age: 53 years Sex: Female : 1970 Associated Diagnoses: None Author: Navdeep Valiente MD Pre-Procedure Procedure Date 10/22/2023 10:52:00 . Procedure Type: Colonoscopy with removal of tumor(s), polyp(s), or other lesion(s) by cold snare technique. Procedure provider Performed by Navdeep Valiente MD. Current history and physical Documented on chart. Cardiac catheter ([id number]) in 2005 at 36 Years. [facility] - Total abdominal hysterectomy and bilateral salpingo-oophorecto my ([id number]) on 01/15/2004 at 33 Years. Tonsillectomy and adenoidectomy ([id number]). Arthroscopy ([id number]). Comments: 09/01/2022 10:00 Daija Mendosa LPN left and right, separate times History of lumbar spine surgery ([id number]). Comments: 09/01/2022 10:01 Daija Mendosa LPN L4-L5 disc December 2015. Past Medical History No active or resolved past medical history items have been selected or recorded.. Family History Patient was adopted. Diabetes mellitus type 1 Father Primary malignant neoplasm of female breast Mother . Procedure History Cardiac catheter ([id number]) in 2005 at 36 Years. [facility] - Total abdominal hysterectomy and bilateral salpingo-oophorecto my ([id number]) on 01/15/2004 at 33 Years. Tonsillectomy and adenoidectomy ([id number]). Arthroscopy ([id number]). Comments: 09/01/2022 10:00 EDT Daija Beyer LPN left and right, separate times History of lumbar spine surgery ([id number]). Comments: 09/01/2022 10:01 Daija Mendosa LPN L4-L5 [...] WEEKLY, # 9 mL, Refills(s) 3, Pharmacy: [facility], 162, cm, 09/25/23 13:12:00 EDT, Height/Length Dosing, 121.7, kg, 09/25/23 13:12:00 EDT, Weight Dosing hydrochlorothiazide 25 mg Tab: 25 mg = 1 tab(s), Oral, Daily, # 90 tab(s), Refills(s) 0, Pharmacy: [facility], 162, cm, 09/25/23 13:12:00 EDT, Height/Length Dosing, 121.7, kg, 09/25/23 13:12:00 EDT, Weight Dosing losartan 100 mg Tab: 100 mg = 1 tab(s), Oral, Daily, # 90 tab(s), Refills(s) 0, Pharmacy: [facility], 162, cm, 09/25/23 13:12:00 EDT, Height/Length Dosing, 121.7, kg, 09/25/23 13:12:00 EDT, Weight Dosing metformin 500 mg Tab: See Instructions, TAKE 1 TABLET BY MOUTH EVERY DAY, # 90 tab(s), Refills(s) 3, Pharmacy: [facility], 162, cm, 09/25/22 11:02:00 EDT, Height/Length Dosing, [...] with cold snare completely Images Procedure images: Rec_hd_video_2023_ _[id number]. jpg Rec_hd_video_2023_ _[id number]. jpg Rec_hd_video_2023_ _[id number]. jpg Rec1_hd_video__09_51_11_[id number]. jpg Rec_hd_video_09_[id number]. jpg [id number]. jpg Rec1_hd_video_2023_ _[id number]. jpg Rec1_hd_video_20 (more content not included)... [facility] Comment on above: Other Comment: Latha sim Attachment - attachment storage system not supported [id number] Can be viewed in source systemMissing Attachment - attachment storage system not supported [id number] Can be viewed in source systemMissing Attachment - attachment storage system not supported [id number] Can be viewed in source systemMissing Attachment - attachment storage system not supported [id number] Can be viewed in source systemMissing Attachment - attachment storage system not supported [id number] Can be viewed in source systemMissing Attachment - attachment storage system not supported [id number] Can be viewed in source systemMissing Attachment - attachment storage system not supported [id number] Can be viewed in source systemMissing Attachment - attachment storage system not supported [id number] Can be viewed in source system Main OR PACU I Recordon 10-03 Main OR PACU I Record PACU Phase I Document Type FT Summary Primary Physician: Navdeep Valiente MD Finalized Date/Time: 10/22/23 12:06:11 Pt. Name: JOVANA XIE/Sex: 1970 Female Med Rec #: [id number] Physician: Navdeep Valiente MD Financial #: [id number] Pt. Type: O Room/Bed: / Admit/Disch: 10/22/23 [...] Signed By: Lorri Sanchez RN 10/22/23 12:[address] [facility] Main OR Preoperative Recordo n 10-22-2023 Main OR Preoperative Record Holding Area Document Type FT Summary Primary Physician: Navdeep Valiente MD Finalized Date/Time: 10/22/23 09:34:35 Pt. Name: JOVANA XIE/Sex: 1970 Female Med Rec #: [id number] Physician: Navdeep Valiente MD Financial #: [id number] Pt. Type: O Room/Bed: / Admit/Disch: 10/22/23 [...] comments below for reason Last Modified By: Fley Leon RN 10/22/23 09:34:31 General Comments: Pt completed prep at 0500 and remained NPO since/BRYNN MARTÍNEZ Finalized By: Fely Leon RN Document Signatures Signed By: Fely Leon RN 10/22/23 09:[address] [facility] Monitor Recordon 10-22-2023 Monitor Record [id number] [facility] Monitor Record [id number] Normal [facility] Patient Education - Texton 0 10-22-2023 [...] unsweetened, w/added ascorbic acid 1 cup 0.5 [place] 1 cup 0.7 Vegetables Cooked Green beans 1 cup 4.0 Carrots 1/2 cup sliced 2.3 Peas 1 cup 8.8 Potato (baked, with skin) 1 medium potato 3.8 Raw [place] (with peel) 1 cucumber 1.5 Lettuce 1 [...] 8.7 Peanuts 1/2 cup 7.9 Chart from [facility] 2013. SEEK IMMEDIATE MEDICAL CARE IF: You [...] of Agriculture (USDA) National Nutrient Database at: http://www.nal.usda .gov/fnic/foodcomp/ search/ Created using data from the USDA National Nutrient Database for Standard Reference. Available at http://www.nal.usda .gov/fnic/foodcomp/ search/. Information adapted from: Nikky? Patient Information ?2009 [employer]. [facility] 2012 [email or web address]/diver ntiscmu-iggotcd-mdw byp-kgf-zbzqqr Colonoscopy Care After Surgery Please read the [...] and progress (more content not included)... Normal [facility] Progress Note-Physicianon Progress Note-Physician Patient: JOVANA [...] WEEKLY, # 9 mL, Refills(s) 3, Pharmacy: [facility], 162, cm, 09/25/23 13:12:00 EDT, Height/Length Dosing, 121.7, kg, 09/25/23 13:12:00 EDT, Weight Dosing hydrochlorothiazide 25 mg Tab: 25 mg = 1 tab(s), Oral, Daily, # 90 tab(s), Refills(s) 0, Pharmacy: [facility], 162, cm, 09/25/23 13:12:00 EDT, Height/Length Dosing, 121.7, kg, 09/25/23 13:12:00 EDT, Weight Dosing losartan 100 mg Tab: 100 mg = 1 tab(s), Oral, Daily, # 90 tab(s), Refills(s) 0, Pharmacy: [facility], 162, cm, 09/25/23 13:12:00 EDT, Height/Length Dosing, 121.7, kg, 09/25/23 13:12:00 EDT, Weight Dosing metformin 500 mg Tab: See Instructions, TAKE 1 TABLET BY MOUTH EVERY DAY, # 90 tab(s), Refills(s) 3, Pharmacy: [facility] [address], 162, cm, 09/25/22 11:02:00 EDT, Height/Length Dosing, [...] list: All Problems Asthma / SNOMED CT 266549331 / Confirmed Body mass index (BMI) of 45.0-49.9 in adult / SNOMED CT 9679350391 / Confirmed Chronic GERD / SNOMED CT 130003342 / Confirmed Colon cancer screening / SNOMED CT 166827632 / Confirmed Constipation, outlet dysfunction / SNOMED CT 25850407 / Confirmed Controlled type 2 diabetes mellitus without complication, without long-term current use of insulin / SNOMED CT 403003759 / Confirmed Derangement of knee / SNOMED CT 247054605 / Confirmed Diabetes mellitus type II, controlled / SNOMED CT 638558437 / Confirmed Extrinsic asthma with status asthmaticus / SNOMED CT 6364655087 / Confirmed Headache / SNOMED CT 79400552 / Confirmed Hemorrhoids / SNOMED CT 342840391 / Confirmed HTN (hypertension) / SNOMED CT 7102685103 / Confirmed Metabolic syndrome X / SNOMED CT 927427718 / Confirmed Morbid obesity / SNOMED CT 362394590 / Confirmed Osteoarthritis / SNOMED CT 5055793986 / Confirmed idiopathic Pain in thumb joint with movement of right hand / SNOMED CT 885066747 / Confirmed Pelvic floor dysfunction / SNOMED CT 9252716608 / Confirmed Psoriasis / SNOMED CT 73691170 / Confirmed Raynaud's phenomenon without gangrene / SNOMED CT 492340550 / Confirmed Raynauds phenomenon / SNOMED CT 160724437 / Confirmed isolated, primary S/P cholecystectomy / SNOMED CT 5323958673 / Confirmed S/P hysterectomy / SNOMED CT 540223423 / Confirmed Sciatica / SNOMED CT 16047287 / Confirmed Smoker / SNOMED CT 309004528 / Confirmed Steatosis of liver / SNOMED CT 651468053 / Confirmed 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 Normal [facility] Comment on above: Result Comment: Elec [...] plan. Re-evaluation prior to induction: Campbell Santiago DO. Health Status Allergies: Allergic Reactions (Selected) Severe [...] WEEKLY, # 9 mL, Refills(s) 3, Pharmacy: [facility], 162, cm, 09/25/23 13:12:00 EDT, Height/Length Dosing, 121.7, kg, 09/25/23 13:12:00 EDT, Weight Dosing hydrochlorothiazide 25 mg Tab: 25 mg = 1 tab(s), Oral, Daily, # 90 tab(s), Refills(s) 0, Pharmacy: [facility], 162, cm, 09/25/23 13:12:00 EDT, Height/Length Dosing, 121.7, kg, 09/25/23 13:12:00 EDT, Weight Dosing losartan 100 mg Tab: 100 mg = 1 tab(s), Oral, Daily, # 90 tab(s), Refills(s) 0, Pharmacy: [facility], 162, cm, 09/25/23 13:12:00 EDT, Height/Length Dosing, 121.7, kg, 09/25/23 13:12:00 EDT, Weight Dosing metformin 500 mg Tab: See Instructions, TAKE 1 TABLET BY MOUTH EVERY DAY, # 90 tab(s), Refills(s) 3, Pharmacy: [facility] [address], 162, cm, 09/25/22 11:02:00 EDT, Height/Length Dosing, [...] list: All Problems Asthma / SNOMED CT 931695003 / Confirmed Body mass index (BMI) of 45.0-49.9 in adult / SNOMED CT 8828767577 / Confirmed Chronic GERD / SNOMED CT 940373570 / Confirmed Colon cancer screening / SNOMED CT 592238224 / Confirmed Constipation, outlet dysfunction / SNOMED CT 19641171 / Confirmed Controlled type 2 diabetes mellitus without complication, without long-term current use of insulin / SNOMED CT 476064712 / Confirmed Derangement of knee / SNOMED CT 470905188 / Confirmed Diabetes mellitus type II, controlled / SNOMED CT 618099667 / Confirmed Extrinsic asthma with status asthmaticus / SNOMED CT 9861111614 / Confirmed Headache / SNOMED CT 35248184 / Confirmed Hemorrhoids / SNOMED CT 457779137 / Confirmed HTN (hypertension) / SNOMED CT 2376804813 / Confirmed Metabolic syndrome X / SNOMED CT 473188852 / Confirmed Morbid obesity / SNOMED CT 436281228 / Confirmed Osteoarthritis / SNOMED CT 6170002638 / Confirmed idiopathic Pain in thumb joint with movement of right hand / SNOMED CT 325345771 / Confirmed Pelvic floor dysfunction / SNOMED CT 9814652677 / Confirmed Psoriasis / SNOMED CT 14301308 / Confirmed Raynaud's phenomenon without gangrene / SNOMED CT 635209005 / Confirmed Raynauds phenomenon / SNOMED CT 405146230 / Confirmed isolated, primary S/P cholecystectomy / SNOMED CT 2710474221 / Confirmed S/P hysterectomy / SNOMED CT 162666038 / Confirmed Sciatica / SNOMED CT 01432241 / Confirmed Smoker / SNOMED CT 142870642 / Confirmed Steatosis of liver / SNOMED CT 449346846 / Confirmed Ulnar neuropathy / SNOMED CT 705885813 / Confirmed left arm Vitamin D3 deficiency / SNOMED CT 6302073770 / Confirmed Canceled: Fatigue / IMO 99754 Canceled: Folliculitis / IMO 43 Canceled: GERD with apnea / SNOMED CT 0353584216, Active Problems (27) Asthma Body mass index (BMI) of 45.0-49.9 in adult Chronic GERD Col (more content not included)... Normal [facility] Comment on above: Result Comment: Elec tronically Signed By: Campbell Santiago DO\Santosbr\Date and Time Signed: 10/22/23 09:59 EDT Consent for Procedure/Surger yon 10-19-2023 Consent for Procedure/Surgery [id number] Normal [facility] Office Visiton 10-19-2023 Follow-up visit [id number] Jovana Xie Shirlene 1970 F Date Provider Department Center 10/19/2023 3848-NAVDEEP TALLEY Family History Problem Relation Age of Onset Coronary artery disease Mother Other Mother Family Status - Relation Status Age at Mother Level of Service:00338 [place] OFFICE/OUTPATIENT ESTABLISHED MOD MDM 30 MIN Normal [facility] Ambulatory Visit Summaryon 0 10-18-2023 [...] Appointments October. 2023 9:30 AM EDT With: Freeman AIKEN, Melissa Mary Where: [facility] [place] Normal [facility] Gastroenterology Office/Clin ic Noteon 10-18-2023 Gastroenterology [...] why taking: Cardiac history? 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 Normal [facility] Comment on above: Result Comment: Elec tronically Signed By: Steffanie AIKEN, Navdeep Rodríguez\.br\Date and Time Signed: 10/18/23 10:03 EDT Ambulatory Visit Summaryon 0 09-25-2023 Ambulatory Visit Summary JOVANA XIE :1970 Visit [...] Follow-Up Appointments 2023 9:30 AM EDT With: Freeman AIKEN, Melissa Mary Where: [facility] [place] Normal [facility] CBC w/ Auto Diffon 4 Basophils/100 WBC (Bld) 0.3 % Normal 0.0-2.0 [facility] Comment on above: Performed By: #### 2 829150, [id number], 4763873, 02374487 ####[facility] [address] [place] [address] Basophils/Leukocyt es Auto (Bld) [Pure # fraction] 0.0 E9/L Normal 0.0-0.2 [facility] Comment on above: Performed By: #### 2 752102, 181833383, 7552667, 88698093 ####[facility] [address] [place] [address] Eosinophils (Bld) [#/Vol] 0.5 E9/L Normal 0.0-0.5 [facility] Comment on above: Performed By: #### 2 318298, 436189029, 7913706, 52591107 ####[facility] [address] [place] [address] Eosinophils/100 WBC (Bld) 4.4 % Normal 0.0-8.0 [facility] Comment on above: Performed By: #### 2 502142, 259215372, 9054126, 68707545 ####[address] [place] [address] Erythrocyte distribution width (RBC) [Ratio] 15.2 % High 10.9-14.2 [facility] Comment on above: Performed By: #### 2 936194, 027314901, 7861336, 55866727 ####[address] [address] Hematocrit (Bld) [Volume fraction] 38.6 % Normal 34.0-46.0 [facility] Comment on above: Performed By: #### 2 718591, 857781243, 3319865, 27811188 ####[address] [address] Hemoglobin (Bld) [Mass/Vol] 12.7 g/dL Normal 12.0-16.0 [facility] Comment on above: Performed By: #### 2 487515, 145298539, 0458311, 19818457 ####[address] [address] Lymphocytes (Bld) [#/Vol] 2.5 E9/L Normal 1.0-4.0 [facility] Comment on above: Performed By: #### 2 619628, 803332034, 2220218, 02721319 ####[address] [place] [address] Lymphocytes/100 WBC (Bld) 23.7 % Normal 14.0-50.0 [facility] Comment on above: Performed By: #### 2 546750, 968937518, 1389046, 99292869 ####[address] [place] [address] MCH (RBC) [Entitic mass] 29.0 pg Normal 27.0-34.0 [facility] Comment on above: Performed By: #### 2 938317, 652986793, 1096226, 86446282 ####[address] [address] MCHC (RBC) [Mass/Vol] 33.0 g/dL Normal 31.4-36.0 [facility] Comment on above: Performed By: #### 2 164658, 971115785, 7482408, 22462090 ####[address] [address] MCV (RBC) [Entitic vol] 88.1 fL Normal 80.0-100.0 [facility] Comment on above: Performed By: #### 2 830336, 524699603, 7725005, 53043167 ####[address] [address] Monocytes (Bld) [#/Vol] 0.6 E9/L Normal 0.2-1.0 [facility] Comment on above: Performed By: #### 2 438474, 873702195, 1817207, 70436459 ####[address] [address] Neutrophils (Bld) [#/Vol] 7.0 E9/L Normal 2.0-7.5 [facility] Comment on above: Performed By: #### 2 678735, 266538048, 5571081, 94227054 ####[address] [address] Neutrophils/100 WBC (Bld) 65.8 % Normal 36.0-75.0 [facility] Comment on above: Performed By: #### 2 612226, 617726494, 1220736, 21024788 ####[address] [address] Platelet 344.0 E9/L Normal 150.0-500.0 [facility] Comment on above: Performed By: #### 2 460697, 856984740, 0938364, 30797156 ####[address] [address] Platelet mean volume (Bld) [Entitic vol] 8.9 fL Normal 6.4-10.8 [facility] Comment on above: Performed By: #### 2 803862, 374725115, 2857165, 47018344 ####[facility] [address] [place] [address] RBC (Bld) [#/Vol] 4.4 E12/L Normal 4.3-5.9 [facility] Comment on above: Performed By: #### 2 455742, 642049232, 3776081, 15804717 ####[facility] [address] [place] [address] WBC corrected for nucl RBC Auto (Bld) [#/Vol] 10.6 E9/L Normal 4.0-11.0 [facility] Comment on above: Performed By: #### 2 627246, 779182627, 6170046, 34380929 ####[facility] [address] [place] [address] CHEMISTRYOrdered By: SYSTEM SYSTEM on 09-25-2023 Albumin [...] 10 - 20 Remisol Chem CHEMISTRYOrdered By: Leny Crabtree on 09-25-2023 HbA1c (Bld) [Mass fraction] 5.2 % Normal <=5.9% [facility] ChemAutoSS CMPon 09-25-2023 Albumin [Mass/Vol] 3.5 g/dL Normal 3.3-5.0 [facility] Comment on above: Performed By: #### 2 372272, 595466220, 3262586, 73982439 ####[facility] [address] [place] [address] Albumin/Globulin (S) [Mass conc ratio] 1.2 Normal 1.1-2.2 [facility] Comment on above: Performed By: #### 2 597273, 074385967, 0643770, 17465357 ####[facility] [address] [place] [address] ALP [Catalytic activity/Vol] 99 Int._Unit/L High 21-98 [facility] Comment on above: Performed By: #### 2 724407, 194545671, 0761954, 44907946 ####[facility] [address] [place] [address] ALT No additional P-5'-P [Catalytic activity/Vol] 30 Int._Unit/L Normal 6-46 [facility] Comment on above: Performed By: #### 2 677742, 928683252, 2648327, 26729930 ####[facility] [address] [place] [address] Anion gap [Moles/Vol] 11 mmol/L Normal 6-16 [facility] Comment on above: Performed By: #### 2 580413, 967900561, 8887016, 53439388 ####[address] [address] AST [Catalytic activity/Vol] 20 Int._Unit/L Normal 5-43 [facility] Comment on above: Performed By: #### 2 919422, 952874557, 5963529, 37606275 ####[facility] [address] [place] [address] Bilirubin [Mass/Vol] 0.5 mg/dL Normal 0.0-1.1 [facility] Comment on above: Performed By: #### 2 258645, 439232844, 7703060, 11707211 ####[facility] [address] [place] [address] Calcium [Mass/Vol] 9.4 mg/dL Normal 8.9-11.1 [facility] Comment on above: Performed By: #### 2 745190, 570636151, 9081651, 50970315 ####[facility] [address] [place] [address] Chloride [Moles/Vol] 104 mmol/L Normal 101-111 [facility] Comment on above: Performed By: #### 2 522067, 087987903, 5474008, 94621672 ####[facility] [address] [place] [address] CO2 [Moles/Vol] 26 mmol/L Normal 21-31 [facility] Comment on above: Performed By: #### 2 844052, 488646229, 1799207, 84675203 ####[facility] [address] [facility] [place] [address] Creatinine [Mass/Vol] 0.8 mg/dL Normal 0.5-1.3 [facility] Comment on above: Performed By: #### 2 711542, 279237090, 6888523, 71558919 ####[facility] [address] [place] [address] Globulin (S) [Mass/Vol] 3.0 g/dL Normal 1.4-4.0 [facility] Comment on above: Performed By: #### 2 935556, 009001916, 4329357, 51804841 ####[facility] [address] [place] [address] Glucose [Mass/Vol] 113 mg/dL Normal 55-199 [facility] Comment on above: Performed By: #### 2 393145, 340949599, 7128148, 83768127 ####[facility] [address] [place] [address] Potassium [Moles/Vol] 4.3 mmol/L Normal 3.5-5.3 [facility] Comment on above: Performed By: #### 2 431282, 911782015, 4357663, 59949966 ####[facility] [address] [place] [address] Protein [Mass/Vol] 6.5 g/dL Normal 6.0-7.8 [facility] Comment on above: Performed By: #### 2 756199, 576682243, 0574170, 26438642 ####[facility] [address] [place] [address] Sodium [Moles/Vol] 137 mmol/L Normal 135-145 [facility] Comment on above: Performed By: #### 2 426007, 577038958, 9167847, 52806479 ####[facility] [address] [place] [address] Urea nitrogen [Mass/Vol] 20 mg/dL Normal 5-21 [facility] Comment on above: Performed By: #### 2 169822, 462237732, 5435505, 68192589 ####[facility] [address] [place] [address] Urea nitrogen/Creatinin e [Mass ratio] 25 No Units High 10-20 [facility] Comment on above: Performed By: #### 2 983147, 782730413, 2927116, 73856597 ####[facility] [address] [place] [address] Family Medicine Office/Clini c Noteon 09-25-2023 Family [...] Daily, # 90 tab(s), Refills(s) 0, Pharmacy: [facility], 162, cm, 09/25/23 13:12:00 EDT, Height/Length Dosing, 121.7, kg, 09/25/23 13:12:00 EDT, Weight Dosing CBC w/ Auto Diff Comprehensive Metabolic Panel [facility] Internal Ambulatory Referral HgbA1c Microalbumin Level Urine 2. Morbid obesity (E66.01: Morbid (severe) obesity due to excess calories) - Diet and exercise advised Ordered: hydrochlorothiazide , 25 mg = 1 tab(s), Oral, Daily, # 90 tab(s), Refills(s) 0, Pharmacy: [facility], 162, cm, 09/25/23 13:12:00 EDT, Height/Length Dosing, 121.7, kg, 09/25/23 13:12:00 EDT, Weight Dosing CBC w/ Auto Diff Comprehensive Metabolic Panel [facility] Internal Ambulatory Referral HgbA1c Microalbumin Level Urine 3. HTN (hypertension) (I10: Essential (primary) hypertension) - Will increase the losartan and add HCTZ. - Follow up in 1 month Ordered: hydrochlorothiazide , 25 mg = 1 tab(s), Oral, Daily, # 90 tab(s), Refills(s) 0, Pharmacy: [facility], 162, cm, 09/25/23 13:12:00 EDT, Height/Length Dosing, 121.7, kg, 09/25/23 13:12:00 EDT, Weight Dosing CBC w/ Auto Diff Comprehensive Metabolic Panel [facility] Internal Ambulatory Referral HgbA1c Microalbumin Level Urine 4. Colon cancer screening (Z12.11: Encounter for screening for malignant neoplasm of colon) - Will send for colonoscopy Ordered: hydrochlorothiazide , 25 mg = 1 tab(s), Oral, Daily, # 90 tab(s), Refills(s) 0, Pharmacy: [facility], 162, cm, 09/25/23 13:12:00 EDT, Height/Length Dosing, 121.7, kg, 09/25/23 13:12:00 EDT, Weight Dosing CBC w/ Auto Diff Comprehensive Metabolic Panel [facility] Internal Ambulatory Referral HgbA1c Microalbumin Level Urine 5. Derangement of knee (M23.90: Unspecified internal derangement of unspecified knee) - Use of cane PRN. - Follow up next month Ordered: hydrochlorothiazide , 25 mg = 1 tab(s), Oral, Daily, # 90 tab(s), Refills(s) 0, Pharmacy: [facility], 162, cm, 09/25/23 13:12:00 EDT, Height/Length Dosing, 121.7, kg, 09/25/23 13:12:00 EDT, Weight Dosing CBC w/ Auto Diff Comprehensive Metabolic Panel [facility] Internal Ambulatory Referral HgbA1c Microalbumin Level Urine 6. Body mass index (BMI) of 45.0-49.9 in adult (Z68.42: Body mass index [BMI] 45.0-49.9, adult) - BMI education discussed. - Diet and exercise advised. Ordered: hydrochlorothiazide , 25 mg = 1 tab(s), Oral, Daily, # 90 tab(s), Refills(s) 0, Pharmacy: [facility], 162, cm, 09/25/23 13:12:00 EDT, Height/Length Dosing, 121.7, kg, 09/25/23 13:12:00 EDT, Weight Dosing Orders: losartan, 100 mg = 1 tab(s), Oral, Daily, # 90 tab(s), Refills(s) 0, Pharmacy: [facility], 162, cm, 09/25/23 13:12:00 EDT, Height/Length Dosing, 121.7, kg, 09/25/23 13:12:00 EDT, Weight Dosing semaglutide, See Instructions, INJECT 1 MG SUBCUANEOUSLY WEEKLY, # 9 mL, Refills(s) 3, Pharmacy: [facility], 162, cm, 09/25/23 13:12:00 EDT, [...] with st (more content not included)... Normal [facility] Comment on above: Result Comment: Elec [...] Normal 4.0 - 11.0 E9/L Remisol Heme MboJ2iti 09-25-2023 HbA1c (Bld) [Mass fraction] 5.2 % Normal <=5.9 [facility] Comment on above: Performed By: #### 2 132883, [id number], 2518353, 29643776 ####[facility] [address] [place] [id number] Patient Educationon 09-25-19 24 Patient Education Nutrition [...] numbers. This can be done either in [place] ([place].) or metric measurements. Note that charts and online BMI calculators are available to help you find your BMI quickly and easily without having to do these calculations yourself. To calculate your BMI in [place] ([place].) measurements: 1. Measure your weight in [...] for Disease Control and Prevention: www.cdc.gov ? [place] [employer]: www.heart.org ? National Heart, Lung, and Blood [place]: www.nhlbi.nih.gov Summary ? Body mass index (BMI) is a number that is calculated from a person's weight and height. ? BMI may help estimate how much of a person's weight is composed of fat. BMI can help identify those who may be at higher risk for certain medical problems. ? BMI can be measured using [place]ian measurements or metric measurements. ? BMI charts are used to identify whether you are underweight, normal weight, overweight, or obese. This information is not intended to replace advice given to you by your health care provider. Make sure you discuss any questions you have with your health care provider. Document Revised: 02/11/2020 Document Reviewed: 12/19/2019 [employer] Patient Education ? 2022 theeventwall. Normal [facility] U Microalbon 09-25-2023 Albumin DL <= 20 mg/L (U) [Mass/Vol] 0.7 mg/dL Normal 0.0-1.9 [facility] Comment on above: Performed By: #### 1 [id number] ####[facility] [address] [place] [address] eGFRon 09-25-2023 eGFR 88 mL/min/1.73 m2 Normal >=59 [facility] Comment on above: Order Comment: Order added by Discern Expert. Performed By: #### 2 [id number] ####[facility] [address] [place] [address] Pre-Certification Formon Pre-Certification Form [id number] 97#[id number] Normal [facility] Consultation Noteon 01-02-20 24 Consultation Note [id number] BF#1.00TIFF Normal [facility] Office Visiton 02-16-2023 Follow-up visit [id number] Jovana Xie 1970 Date Provider Department Center 02/16/[id number] [facility] Family History Problem Relation Age of Onset Coronary artery disease Mother Other Mother Family Status - Relation Status Age at Mother Level of Service:73792 [place] OFFICE/OUTPATIENT ESTABLISHED MOD MDM 30-39 MIN Normal [facility] Office Visiton 12-20-2022 Follow-up visit [id number] Jovana iXe 1970 Date Provider Department Center 12/20/2022 [id number] WOOTEN TEN[place] [facility] Family History Problem Relation Age of Onset Coronary artery disease Mother Other Mother Family Status - Relation Status Age at Mother Level of Service:02921 [place] OFFICE/OUTPATIENT ESTABLISHED MOD MDM 30-39 MIN Reason for Visit and Comments: Follow-up [831161] - 1 month follow up Normal [facility] CT LUNG CANCER SCREENINGon 0 [...] by: ALEM PASCUAL Date: 2022-10-27 09:10 Normal [facility] HEMOGLOBINon 10-27-2022 Hemoglobin (Bld) [Mass/Vol] 14.8 g/dL Normal 12.0-16.0 [facility] Comment on above: Performed By: #### H GB #### [facility] [address] [address] [address] Eron Spencer XR hand BI 3Von 10-11-2022 XR hand BI 3V [facility] [employer] Other XR hand BI 3V [facility] [employer] Other XR hand BI 3V [address] [place] [address] [employer] Other XR hand BI 3V [place], [place] [id number] [place] [address] [employer] Other XR hand BI 3V XRay Report [facility] [employer] Other XR hand BI 3V Signed [employer] Other XR hand BI 3V Patient: Jovana Xie MR#: [id number] [facility] [employer] Other XR hand BI 3V 585 [employer] Other XR hand BI 3V : 1970 Acct:[id number] [employer] Other XR hand BI 3V Age/Sex: 52 / F ADM Date: 10/11/22 [employer] Other XR hand BI 3V Loc: SOXD Room: Type: [facility] [employer] Other XR hand BI 3V Attending Dr: Charu Pham MD [employer] Other XR hand BI 3V Copies to: Charu Pham MD [employer] Other XR hand BI 3V Ordering Provider: Charu Pham MD [employer] Other XR hand BI 3V Date of Service: 10/11/22 [employer] Other XR hand BI 3V XR/XR hand BI 3V: Right hand pain [employer] Other XR hand BI 3V BILATERAL HANDS - 4 views each [employer] Other XR hand BI 3V COMPARISON: None [employer] Other XR hand BI 3V CLINICAL DATA: Bilateral hand pain, greatest at the right first carpometacarpal joint. Numbness at [employer] Other XR hand BI 3V the left third through fifth fingers. [employer] Other XR hand BI 3V AP, lateral, oblique and supplemental AP views of the thumbs were obtained. There are no acute [employer] Other XR hand BI 3V fractures or dislocation. No disproportionate joint space narrowing or prominent hypertrophy is [employer] Other XR hand BI 3V seen. There are no focal soft tissue abnormalities. [employer] Other XR hand BI 3V XR/XR hand BI 3V [employer] Other XR hand BI 3V IMPRESSION: [employer] Other XR hand BI 3V NO ACUTE BONY FINDINGS. [employer] Other XR hand BI 3V Impression dictated by: Daina Downs M.D.10/11/2022 2:43 PM [employer] Other XR hand BI 3V Dictation Location: [facility] [address] [employer] Other XR hand BI 3V Transcribed By: DEANGELO 10/11/22 [facility] [employer] Other XR hand BI 3V Dictated By: Daina Downs MD 10/11/22 [facility] [employer] Other XR hand BI 3V Signed By: [employer] Other XR hand BI 3V 10/11/22 1443 [facility] [employer] Other XR cerv spine AP/LAT/FLX/EXT on 06-21-2022 XR cerv spine AP/LAT/FLX/EXT [facility] [employer] Other XR cerv spine AP/LAT/FLX/EXT [facility] [employer] Other XR cerv spine AP/LAT/FLX/EXT [address] [facility] [employer] Other XR cerv spine AP/LAT/FLX/[place] [address] [employer] Other XR cerv spine AP/LAT/FLX/EXT XRay Report [employer] Other XR cerv spine AP/LAT/FLX/EXT Signed [employer] Other XR cerv spine AP/LAT/FLX/EXT Patient: Jovana Xie MR#: [id number] [employer] Other XR cerv spine AP/LAT/FLX/EXT 585 [employer] Other XR cerv spine AP/LAT/FLX/EXT : 1970 Acct:[id number] [employer] Other XR cerv spine AP/LAT/FLX/EXT Age/Sex: 52 / F ADM Date: 06/21/22 [employer] Other XR cerv spine AP/LAT/FLX/EXT Loc: SOXD Room: Type: REG CLI [employer] Other XR cerv spine AP/LAT/FLX/EXT Attending Dr: Charu Pham MD [employer] Other XR cerv spine AP/LAT/FLX/EXT Copies to: Charu Pham MD [employer] Other XR cerv spine AP/LAT/FLX/EXT Ordering Provider: Charu Pham MD [employer] Other XR cerv spine AP/LAT/FLX/EXT Date of Service: 06/21/22 [employer] Other XR cerv spine AP/LAT/FLX/EXT XR/XR cerv spine AP/LAT/FLX/EXT: Numbness of left hand [employer] Other XR cerv spine AP/LAT/FLX/EXT AP with lateral neutral, flexion extension views of the cervical spine [employer] Other XR cerv spine AP/LAT/FLX/EXT HISTORY: Cervical spine pain. Numbness and tingling of the arms [employer] Other XR cerv spine AP/LAT/FLX/EXT COMPARISON: None [employer] Other XR cerv spine AP/LAT/FLX/EXT Cervical lordosis is adequate. [employer] Other XR cerv spine AP/LAT/FLX/EXT No acute cervical spine fracture identified. [employer] Other XR cerv spine AP/LAT/FLX/EXT No cervical spine listhesis identified. [employer] Other XR cerv spine AP/LAT/FLX/EXT Disc spaces are adequate. [employer] Other XR cerv spine AP/LAT/FLX/EXT Facets are in adequate alignment. [employer] Other XR cerv spine AP/LAT/FLX/EXT No hypermobility with flexion and extension views. [employer] Other XR cerv spine AP/LAT/FLX/EXT The dens is intact. [employer] Other XR cerv spine AP/LAT/FLX/EXT The craniocervical junction is unremarkable. [employer] Other XR cerv spine AP/LAT/FLX/EXT No paraspinal soft tissue abnormality seen. Benign posterior soft tissue calcification at C7 level. [employer] Other XR cerv spine AP/LAT/FLX/EXT XR/XR cerv spine AP/LAT/FLX/EXT [employer] Other XR cerv spine AP/LAT/FLX/EXT IMPRESSION: No hypermobility. No acute cervical spine fracture. [employer] Other XR cerv spine AP/LAT/FLX/EXT Impression dictated by: Devin Norwood M.D.06/21/2022 3:15 PM [employer] Other XR cerv spine AP/LAT/FLX/EXT Dictation Location: [place] [address] [employer] Other XR cerv spine AP/LAT/FLX/EXT Transcribed By: PWS 06/21/22 [facility] [employer] Other XR cerv spine AP/LAT/FLX/EXT Dictated By: Devin Norwood DO 06/21/22 Pending sale to [facility] [employer] Other XR cerv spine AP/LAT/FLX/EXT Signed By: [employer] Other XR cerv spine AP/LAT/FLX/EXT 06/21/22 [facility] [employer] Other PAP ACOG PANEL 2: 30 to 65on 12-06-2021 . . Normal [facility] Comment on above: Result Comment: Perf ormed at: WB Performed By: #### 4 [id number] #### [facility] [address] [address] [address] Eron Spencer Age Gdln ACOG Testing 30-65 Normal [facility] Comment on above: Performed By: #### 4 [id number] #### [facility] [address] [address] [address] Eron Spencer DIAGNOSIS: Comment Normal [facility] Comment on above: Result Comment: NEGA TIVE FOR INTRAEPITHELIAL LESION OR MALIGNANCY. THIS SPECIMEN WAS RESCREENED PART OF OUR WIRE WINDING MACHINE TENDER PROGRAM. Performed at: WB Performed By: #### 4 [id number] #### [facility] [address] [place] [address] Dr. Eron Spencer HPV Aptima Negative Normal Negative [facility] Comment on above: Result Comment: This nucleic acid amplification test detects fourteen high-risk HPV types (16,18,31,33,35,39,45,51,52,56,58,59,66,68) without differentiation. Performed at: =G Performed By: #### 4 [id number] #### [facility] [address] [place] [address] Dr. Eron Spencer Methodology: Comment Normal [facility] Comment on above: Result Comment: This liquid based ThinPrep(R) pap test was screened with the use of an image guided system. Performed at: WB Performed By: #### 4 [id number] #### [facility] [address] [place] [address] Dr. Eron Spencer Note: Comment Normal [facility] Comment on above: Result Comment: The Pap smear is a screening test designed to aid in the detection of premalignant and malignant conditions of the uterine cervix. It is not a diagnostic procedure and should not be used as the sole means of detecting cervical cancer. Both false-positive and false-negative reports do occur. . Performed at: WB Performed By: #### 4 [id number] #### [facility] [address] [place] [address] Dr. Eron Spencer Performed by: Comment Normal [facility] Comment on above: Result Comment: Kimberly Duarte, Acid Patroller (ASCP) Performed at: WB Performed By: #### 4 [id number] #### [facility] [address] [place] [address] Dr. Eron Spencer QC reviewed by: Comment Normal [facility] Comment on above: Result Comment: Israel Velazquez, Supervisory Acid Patroller (ASCP) Performed at: WB Performed By: #### 4 [id number] #### [facility] [address] [place] [address] Dr. Eron Spencer Specimen adequacy: Comment Normal [facility] Comment on above: Result Comment: Sati sfactory for evaluation. No endocervical component is identified. Performed at: WB Performed By: #### 4 [id number] #### [facility] [address] [address] [address] Eron Spencer MG MAMM SCREEN 3D ARMAAN CADon 12-01-2021 MG MAMM SCREEN 3D ARMAAN CAD Patient: JOVANA XIE Exam Date: 12/01/2021 : 1970 Gender:F Ordering : DR ELVIA SWEENEY . Admission #: [id number] Family : Order #: [id number] CLICK HERE TO VIEW EXAM RADIOLOGY REPORT PROCEDURE: MAMMOGRAM SCREENING 3D BILATERAL CAD COMPARISON: DIGITIZED_MAMMO, 04/15/2010. MG MAMM SCREEN ARMAAN W CAD, 09/19/2016. INDICATIONS: Screening mammography Calculator Name NCI Breast Cancer Risk Assessment Tool 5 Year Breast Cancer Risk 0.90% Lifetime Breast Cancer Risk 8.80% Personal Breast Cancer No Personal Ovarian Cancer No Treatments None Family Cancers None LOCATION: [facility] BREAST COMPOSITION: Heterogeneously dense,which may obscure [...] Sanderson MD on 12/01/2021 at 11:45 Normal [facility] CBC AUTO DIFFon 11-30-2021 BASO # 0.0 103/ul Normal 0.0-0.1 [facility] Comment on above: Performed By: #### L IPID, CMP #### [facility] [address] [address] [address] Eron Spencer Basophils/100 WBC (Bld) 0.4 % Normal 0.2-2.0 [facility] Comment on above: Performed By: #### L IPID, CMP #### [facility] [address] [address] [address] Eron Spencer EO # 0.2 103/ul Normal 0.0-0.7 [facility] Comment on above: Performed By: #### L IPID, CMP #### [facility] [address] [place] [address] Dr. Eron Spencer Eosinophils/100 WBC (Bld) 2.0 % Normal 0.9-7.0 [facility] Comment on above: Performed By: #### L IPID, CMP #### [facility] [address] [place] [address] Dr. Eron Spencer Erythrocyte distribution width (RBC) [Ratio] 14.0 % Normal 11.0-15.0 [facility] Comment on above: Performed By: #### L IPID, CMP #### [facility] [address] [place] [address] Dr. Eron Spencer Hematocrit (Bld) [Volume fraction] 46.7 % Normal 36.0-48.0 [facility] Comment on above: Performed By: #### L IPID, CMP #### [facility] [address] [place] [address] Dr. Eron Spencer Hemoglobin (Bld) [Mass/Vol] 15.3 g/dL Normal 12.0-16.0 [facility] Comment on above: Performed By: #### L IPID, CMP #### [facility] [address] [place] [address] Dr. Eron Spencer IG # 0.03 10e3/ul Normal 0.00-0.03 [facility] Comment on above: Performed By: #### L IPID, CMP #### [facility] [address] [place] [address] Dr. Eron Spencer IG % 0.3 % Normal 0.0-0.5 [facility] Comment on above: Performed By: #### L IPID, CMP #### [facility] [address] [place] [address] Dr. Eron Spencer LYMPH # 2.7 103/ul Normal 1.2-3.8 [facility] Comment on above: Performed By: #### L IPID, CMP #### [facility] [address] [place] [address] Dr. Eron Spencer Lymphocytes/100 WBC (Bld) 29.7 % Normal 20.5-60.0 [facility] Comment on above: Performed By: #### L IPID, CMP #### [facility] [address] [place] [address] Dr. Eron Spencer MANUAL DIFF REQ NO Normal [facility] Comment on above: Performed By: #### L IPID, CMP #### [facility] [address] [place] [address] Dr. Eron Spencer MCH (RBC) [Entitic mass] 27.7 pg Normal 26.7-34.0 [facility] Comment on above: Performed By: #### L IPID, CMP #### [facility] [address] [place] [address] Dr. Eron Spencer MCHC (RBC) [Mass/Vol] 32.8 g/dL Normal 29.9-35.2 [facility] Comment on above: Performed By: #### L IPID, CMP #### [facility] [address] [place] [address] Dr. Eron Spencer MCV (RBC) [Entitic vol] 84.6 fL Normal 81.0-99.0 [facility] Comment on above: Performed By: #### L IPID, CMP #### [facility] [address] [place] [address] Dr. Eron Spencer MONO # 0.6 103/ul Normal 0.3-0.8 [facility] Comment on above: Performed By: #### L IPID, CMP #### [facility] [address] [place] [address] Dr. Eron Spencer Monocytes/100 WBC (Bld) 7.0 % Normal 1.7-12.0 [facility] Comment on above: Performed By: #### L IPID, CMP #### [facility] [address] [place] [address] Dr. Eron Spencer NEUT # 5.4 103/ul Normal 1.4-6.5 [facility] Comment on above: Performed By: #### L IPID, CMP #### [facility] [address] [address] [address] Eron Spencer Neutrophils/100 WBC (Bld) 60.6 % Normal 43.0-75.0 [facility] Comment on above: Performed By: #### L IPID, CMP #### [facility] [address] [address] [address] Eron Spencer Platelet mean volume (Bld) [Entitic vol] 10.1 fL Normal 9.5-13.5 [facility] Comment on above: Performed By: #### L IPID, CMP #### [facility] [address] [address] [address] Eron Spencer PLT 297 103/ul Normal 150-450 [facility] Comment on above: Performed By: #### L IPID, CMP #### [facility] [address] [address] [address] Eron Spencer RBC 5.52 106/ul Critically high 4.20-5.40 [facility] Comment on above: Performed By: #### L IPID, CMP #### [facility] [address] [address] [address] Eron Spencer WBC 9.0 103/ul Normal 4.0-11.0 [facility] Comment on above: Performed By: #### L IPID, CMP #### [facility] [address] [address] [address] Eron Spencer GLYCOHEMOGLOBIN A1Con 2021 ADA RECOMMENDATION SEE BELOW Normal [facility] Comment on above: Result Comment: ADA RECOMMENDED LIMIT 4.0 - 6.0 ADA THERAPEUTIC TARGET < 7.0 ACTION SUGGESTED > 7.0 Performed By: #### A 1C #### [facility] [address] [place] [address] Dr. Eron Spencer Glucose [Mass/Vol] 117 mg/dL Normal [facility] Comment on above: Performed By: #### A 1C #### [facility] [address] [address] [address] Eron Spencer HbA1c (Bld) [Mass fraction] 5.7 % Normal 4.5-6.2 [facility] Comment on above: Performed By: #### A 1C #### [facility] [address] [address] [address] Eron Spencer LIPID PROFILEon 11-30-2021 CHOL-HDL RATIO NORM SEE BELOW Normal [facility] Comment on above: Result Comment: 3.3 - 4.4 LOW RISK 4.4 - 7.1 AVERAGE RISK 7.1 - 11.0 MODERATE RISK >11.0 HIGH RISK Performed By: #### L IPID, CMP #### [facility] [address] [address] [address] Eron Spencer Cholesterol [Mass/Vol] 187 mg/dL Normal <=200 [facility] Comment on above: Performed By: #### L IPID, CMP #### [facility] [address] [address] [address] Eron Spencer Cholesterol in HDL [Mass/Vol] 42 mg/dL Normal 40-60 [facility] Comment on above: Performed By: #### L IPID, CMP #### [facility] [address] [address] [address] Eron Spencer Cholesterol in LDL [Mass/Vol] 127.4 mg/dL Normal [facility] Comment on above: Performed By: #### L IPID, CMP #### [facility] [address] [address] [address] Eron Spencer Cholesterol.total/ Cholesterol in HDL [Mass ratio] 4.5 {ratio} Normal [facility] Comment on above: Performed By: #### L IPID, CMP #### [facility] [id number] Eron Spencer HDL NORMAL > or = 60 mg/dl - LOW CARDIOVASCULAR RISK <40 mg/dl - HIGH CARDIOVASCULAR RISK Normal [facility] Comment on above: Performed By: #### L IPID, CMP #### [facility] [address] [address] [address] Eron Spencer LDL CALC NORMAL SEE BELOW Normal [facility] Comment on above: Result Comment: <100 mg/dl OPTIMAL 100 - 129 mg/dl NEAR OR ABOVE OPTIMAL 130 - 159 mg/dl BORDERLINE HIGH 160 - 189 mg/dl HIGH >190 mg/dl VERY HIGH Performed By: #### L IPID, CMP #### [facility] [address] [place] [address] Dr. Eron Spencer Triglyceride [Mass/Vol] 88 mg/dL Normal <=150 [facility] Comment on above: Performed By: #### L IPID, CMP #### [facility] [address] [place] [address] Dr. Eron Spencer VLDL CALC 17.6 mg/dL Normal [facility] Comment on above: Performed By: #### L IPID, CMP #### [facility] [address] [place] [address] Dr. Erno Spencer PROF 14(COMP METB)on 022 Albumin [Mass/Vol] 3.3 g/dL Critically low 3.4-5.0 [facility] Comment on above: Performed By: #### L IPID, CMP #### [facility] [address] [place] [address] Dr. Eron Spencer Albumin/Globulin [Mass ratio] 0.8 {ratio} Normal [facility] Comment on above: Performed By: #### L IPID, CMP #### [facility] [address] [place] [address] Dr. Eron Spencer ALP [Catalytic activity/Vol] 132 U/L Critically high 46-116 [facility] Comment on above: Performed By: #### L IPID, CMP #### [facility] [address] [place] [address] Dr. Eron Spencer ALT [Catalytic activity/Vol] 79 U/L Critically high 14-59 [facility] Comment on above: Performed By: #### L IPID, CMP #### [facility] [address] [place] [address] Dr. Eron Spencer Anion gap [Moles/Vol] 15.4 mmol/L Normal [facility] Comment on above: Performed By: #### L IPID, CMP #### [facility] [address] [place] [address] Dr. Eron Spencer AST [Catalytic activity/Vol] 44 U/L Critically high 15-37 [facility] Comment on above: Performed By: #### L IPID, CMP #### [facility] [address] [address] [address] Eron Spencer Bilirubin [Mass/Vol] 0.6 mg/dL Normal 0.2-1.0 [facility] Comment on above: Performed By: #### L IPID, CMP #### [facility] [address] [place] [address] Dr. Eron Spencer Calcium [Mass/Vol] 9.0 mg/dL Normal 8.5-10.1 [facility] Comment on above: Performed By: #### L IPID, CMP #### [facility] [address] [place] [address] Dr. Eron Spencer Chloride [Moles/Vol] 102 mmol/L Normal 98-107 [facility] Comment on above: Performed By: #### L IPID, CMP #### [facility] [address] [place] [address] Dr. Eron Spencer CO2 [Moles/Vol] 24.5 mmol/L Normal 21.0-32.0 [facility] Comment on above: Performed By: #### L IPID, CMP #### [facility] [address] [place] [address] Dr. Eron Spencer Creatinine [Mass/Vol] 0.90 mg/dL Normal 0.55-1.02 [facility] Comment on above: Performed By: #### L IPID, CMP #### [facility] [address] [place] [address] Dr. Eron Spencer EGFR-AF GUINEAN >80 Normal >=60 [facility] Comment on above: Performed By: #### L IPID, CMP #### [facility] [address] [place] [address] Dr. Eron Spencer EGFR-NON AF GUINEAN >66 Normal >=60 [facility] Comment on above: Performed By: #### L IPID, CMP #### [facility] [address] [place] [address] Dr. Eron Spencer Globulin (S) [Mass/Vol] 4.1 g/dL Normal [facility] Comment on above: Performed By: #### L IPID, CMP #### [facility] [address] [place] [address] Dr. Eron Spencer Glucose [Mass/Vol] 96 mg/dL Normal 74-106 [facility] Comment on above: Performed By: #### L IPID, CMP #### [facility] [address] [place] [address] Dr. Eron Spencer Potassium [Moles/Vol] 3.9 mmol/L Normal 3.5-5.1 [facility] Comment on above: Performed By: #### L IPID, CMP #### [facility] [address] [place] [address] Dr. Eron Spencer Protein [Mass/Vol] 7.4 g/dL Normal 6.4-8.2 [facility] Comment on above: Performed By: #### L IPID, CMP #### [facility] [address] [place] [address] Dr. Eron Spencer Sodium [Moles/Vol] 138 mmol/L Normal 136-145 [facility] Comment on above: Performed By: #### L IPID, CMP #### [facility] [address] [place] [address] Dr. Eron Spencer Urea nitrogen [Mass/Vol] 12.0 mg/dL Normal 7.0-18.0 [facility] Comment on above: Performed By: #### L IPID, CMP #### [facility] [address] [place] [address] Dr. Eron Spencer Urea nitrogen/Creatinin e [Mass ratio] 13.3 mg/mg Normal [facility] Comment on above: Performed By: #### L IPID, CMP #### [facility] [address] [place] [address] Dr. Eron Spencer VITAMIN D 25 OHon 11-30-2021 VIT D 25-OH 35.6 ng/mL Normal [facility] Comment on above: Performed By: #### L IPID, CMP #### [facility] [address] [place] [address] Dr. Eron Spencer VIT D RANGES SEE BELOW Normal [facility] Comment on above: Result Comment: <20 ng/mL Vit D deficient 20 - <30 ng/mL Vit D insufficient 30 - 100 ng/mL Vit D sufficient >100 ng/mL Potential Toxicity Performed By: #### L IPID, CMP #### [facility] [address] [place] [address] Dr. Eron Spencer GROUP A STREP CULTUREon 11-03 S. pyogenes Ag Ql (Unsp spec) Culture Observations: NEGATIVE FOR GROUP A STREPTOCOCCUS. Normal [facility] Comment on above: Performed By: #### L IPID, CMP #### [facility] [address] [place] [address] Dr. Eron Spencer STREPT SCREENon 11-25-2021 STREP SCREEN A Negative Normal NEGATIVE [facility] Comment on above: Performed By: #### S SCRN, GRASTCX #### [facility] [address] [place] [address] Dr. Eron Spencer XR CHEST 1 Von [...] CAITLYN WATTS Date: 2021-11-25 15:41 Normal [facility] Covid-19 PCR (CVDTBH)on 11-03 SARS-CoV-2 (COVID-19) RNA SAVANNAH+probe Ql (Unsp spec) Not detected Normal NOT DETECTED [facility] Comment on above: Result Comment: This test is not yet approved or cleared by the [place] FDA. When there are no FDA-approved or cleared tests available, and other criteria are met, FDA can make tests available under an emergency access mechanism called an Emergency Use Authorization (EUA). The EUA for this test is supported by the [employer] of Health and Human Service's (HHS's) declaration [...] Performed By: #### L IPID, CMP #### [facility] [address] [place] [address] Dr. Eron Spencer Glucose Glucometer (dC) [M ass/Vol]Ordered By: Charu Pham on 09-22-2021 Glucose [Mass/Vol] 97 mg/dL [facility] [place] Comment on above: Random Glucose Refer ence Range is dependent on time and content of last meal. Glucose of more than 200 mg/dL in a nonstressed, ambulatory subject supports the diagnosis of Diabetes Mellitus. COVID-19 Positive/NegativeOr dered By: Chrau Pham on 09-20-2021 SARS-CoV-2 (COVID-19) N gene SAVANNAH+probe Ql (Resp) Negative Negative [facility] Comment on above: Testing for SARS-CoV -2 by RT-PCRThis test was developed and its performance characteristics determined by [employer] ([employer]) and validated at the [facility]. This test has not been FDA cleared [...] 09-15-2021 Basophils (Bld) [#/Vol] 0.1 10*3/uL 0.0-0.2 [facility] Basophils/100 WBC Auto (Bld) Ordered By: Charu Pham on 09-15-2021 Basophils/100 WBC (Bld) 0.6 % [facility] Blood hemoglobin measurement (mass/volume)Ordered By: Charu Pham on 09-15-2021 Hemoglobin (Bld) [Mass/Vol] 13.7 g/dL 11.8-15.4 [facility] Blood leukocytes automated c ount (number/volume)Ordered By: Charu Pham on 09-15-2021 WBC (Bld) [#/Vol] 9.4 10*3/uL 4.5-11.0 [facility] [place] Body fluid albumin measureme nt (mass/volume)Ordered By: Charu Pham on 09-15-2021 Albumin (Body fld) [Mass/Vol] 3.0 g/dL 3.2-5.5 [facility] Creatinine and Glomerular fi ltration rate.predicted panel (S/P/Bld)Ordered By: Charu Pham on 09-15-2021 Creatinine [Mass/Vol] 0.82 mg/dL 0.44-1.03 [facility] Eosinophils Auto (Bld) [#/Vo l]Ordered By: Charu Pham on 09-15-2021 Eosinophils (Bld) [#/Vol] 0.3 10*3/uL 0.0-0.45 [facility] Eosinophils/100 WBC Auto (Bl d)Ordered By: Charu Pham on 09-15-2021 Eosinophils/100 WBC (Bld) 3.1 % [facility] Erythrocyte distribution wid th Auto (RBC) [Ratio]Ordered By: Charu Pham on 09-15-2021 Erythrocyte distribution width (RBC) [Ratio] 15.0 % 11.9-15.3 [facility] Estimated glomerular filtrat ion rate (GFR) non- AmericanOrdered By: Charu Pham on 09-15-2021 GFR/1.73 sq M.predicted among non-blacks MDRD (S/P/Bld) [Vol rate/Area] > 60 mL/Min [facility] Globulin Calc (S) [Mass/Vol] Ordered By: Charu Pham on 09-15-2021 Globulin (S) [Mass/Vol] 2.9 g/dL [facility] Hematocrit Auto (Bld) [Volum e fraction]Ordered By: Charu Pham on 09-15-2021 Hematocrit (Bld) [Volume fraction] 40.8 % 34.0-46.4 [facility] Laboratory - Hematology and Cell countsOrdered By: Charu Pham on 09-15-2021 Nucleated RBC/100 WBC (Bld) [Ratio] 0.0 % 0-0.5 [facility] Lymphocytes Auto (Bld) [#/Vo l]Ordered By: Charu Pham on 09-15-2021 Lymphocytes (Bld) [#/Vol] 2.3 10*3/uL 1.00-4.8 [facility] Lymphocytes/100 WBC Auto (Bl d)Ordered By: Charu Pham on 09-15-2021 Lymphocytes/100 WBC (Bld) 24.5 % [facility] MCH Auto (RBC) [Entitic mass ]Ordered By: Charu Pham on 09-15-2021 MCH (RBC) [Entitic mass] 28.4 pg 24.7-34.3 [facility] MCHC Auto (RBC) [Mass/Vol]Or dered By: Charu Pham on 09-15-2021 MCHC (RBC) [Mass/Vol] 33.6 g/dL 32.0-35.0 [facility] MCV Auto (RBC) [Entitic vol] Ordered By: Charu Pham on 09-15-2021 MCV (RBC) [Entitic vol] 84.6 fL 80-100 [facility] Monocytes Auto (Bld) [#/Vol] Ordered By: Charu Pham on 09-15-2021 Monocytes (Bld) [#/Vol] 0.9 10*3/uL 0.0-0.8 [facility] Monocytes/100 WBC Auto (Bld) Ordered By: Charu Pham on 09-15-2021 Monocytes/100 WBC (Bld) 9.7 % [facility] Neutrophils Auto (Bld) [#/Vo l]Ordered By: Charu Pham on 09-15-2021 Neutrophils (Bld) [#/Vol] 5.9 10*3/uL 1.8-7.7 [facility] Neutrophils/100 WBC Auto (Bl d)Ordered By: Charu Pham on 09-15-2021 Neutrophils/100 WBC (Bld) 62.1 % [facility] No Panel InformationOrdered By: Charu Pham on 09-15-2021 Estimated GFR () > 60 mL/Min [facility] Comment on above: GFR estimated refere nce range: According to KDOQI guidelines, <60 ml/min/1.73m2 is sufficient to diagnose a patient with chronic kidney disease. Pharmacy Creatinine Clearance (Chem N/A [facility] Platelet mean volume Auto (B ld) [Entitic vol]Ordered By: Charu Pham on 09-15-2021 Platelet mean volume (Bld) [Entitic vol] 9.1 fL 6.3-10.7 [facility] Platelets Auto (Bld) [#/Vol] Ordered By: Charu Pham on 09-15-2021 Platelets (Bld) [#/Vol] 285 10*3/uL 150-450 [facility] Protein [Mass/volume] in Ser um or PlasmaOrdered By: Charu Pham on 09-15-2021 Protein [Mass/Vol] 5.9 g/dL 6.1-7.9 [facility] RBC Auto (Bld) [#/Vol]Ordere d By: Charu Pham on 09-15-2021 RBC (Bld) [#/Vol] 4.82 10*6/uL 3.60-5.00 [facility] Serum or plasma alanine martinez otransferase measurement without P-5'-P (enzymatic activiOrdered By: Charu Pham on 09-15-2021 ALT No additional P-5'-P [Catalytic activity/Vol] 59 U/L 10-60 [facility] Serum or plasma albumin/glob ulin mass ratioOrdered By: Charu Pham on 09-15-2021 Albumin/Globulin [Mass ratio] 1.0 {ratio} [facility] Serum or plasma alkaline sera sphatase measurement (enzymatic activity/volume)Ordered By: Charu Pham on 09-15-2021 ALP [Catalytic activity/Vol] 90 U/L 32-92 [facility] Serum or plasma aspartate am inotransferase measurement (enzymatic activity/volume)Ordered By: Charu Pham on 09-15-2021 AST [Catalytic activity/Vol] 40 U/L 10-42 [facility] Serum or plasma calcium khurram urement (mass/volume)Ordered By: Charu Pham on 09-15-2021 Calcium [Mass/Vol] 8.9 mg/dL 8.2-10.2 [facility] Serum or plasma chloride rae surement (moles/volume)Ordered By: Charu Pham on 09-15-2021 Chloride [Moles/Vol] 105 mmol/L 95-114 [facility] Serum or plasma glucose khurram urement (mass/volume)Ordered By: Charu Pham on 09-15-2021 Glucose [Mass/Vol] 94 mg/dL 70-100 [facility] Comment on above: ADA recommended refe rence rangeRandom Glucose Reference Range is dependent on time and content of last meal. Glucose of more than 200 mg/dL in a nonstressed, ambulatory subject supports the diagnosis of Diabetes Mellitus. Serum or plasma potassium me asurement (moles/volume)Ordered By: Charu Pham on 09-15-2021 Potassium [Moles/Vol] 4.3 mmol/L 3.5-5.1 [facility] Serum or plasma sodium measu rement (moles/volume)Ordered By: Charu Pham 09-15-2021 Sodium [Moles/Vol] 140 mmol/L 136-146 [facility] Serum or plasma total biliru bin measurement (mass/volume)Ordered By: Charu Pham 09-15-2021 Bilirubin [Mass/Vol] 0.6 mg/dL 0.3-1.2 [facility] Serum or plasma total carbon dioxide measurement (moles/volume)Ordered By: Charu Pham on 09-15-2021 CO2 [Moles/Vol] 25.2 mmol/L 22.0-30.0 [facility] Serum or plasma urea nitroge n measurement (mass/volume)Ordered By: Charu Pham on 09-15-2021 Urea nitrogen [Mass/Vol] 11 mg/dL 02-24 [facility] Bhumi 04-26-2021 CNPN Telephone (JACOBO) ---- JOVANA XIE ([id number]) 1970 F Date Time Provider Department 04/26/21 MAEGAN ANGULO During your visit today, we recorded the following information about you: Calli Live 04/26/2021 10:21 AM Signed Patient called to follow up on records to see if they had been received. Informed patient that they are not in her chart at this time. Encouraged patient to have records sent to [phone]. [facility] 04/26/2021 11:57 AM Signed Records received and placed on Maris Ramirez's desk for review. [facility] Allergies As of Date: 04/26/2021 Noted Allergy Reaction DEXAMETHASONE 12/10/2020 8 - GI Upset Comments: HAIR LOSS PENICILLINS 12/10/2020 14 - Other: See Comments Comments: HIGH FEVER-CHILLS Date Reviewed: 02/10/2021 Reviewed by: Maris Ramirez, CESAR.BATTERY SERVICE TECHNICIAN - Fully Assessed Reason for Visit: Nurse [...] Encounter Status:Closed by CALLI LIVE on 04/26/21 [facility] 02-11-2021 KARLA Telephone (BRAXTONMN) ---- JOVANA XIE ([id number]) 1970 F Date Time Provider Department 02/11/21 MARIS RAMIREZ During your visit today, we recorded the following information about you: Maris Ramirez APRN.[facility] 02/11/2021 7:37 AM Signed Please advise patient we received a fax from [facility]. It was the discharge page after her MRI. This is not what I had asked her to send. We need the procedure notes from her pain physician to see what procedures she has had done in the past. Thanks, Maris Ramirez APRN.ILEANA Ramirez APRN.ILEANA 02/11/2021 7:40 AM Signed Her provider in [place] is [facility]. Also need the EMG. Thanks, Maris Ramirez APRN.ILEANA Allergies As of Date: 02/11/2021 Noted Allergy Reaction DEXAMETHASONE 12/10/2020 8 - GI Upset Comments: HAIR LOSS PENICILLINS 12/10/2020 14 - Other: See Comments Comments: HIGH FEVER-CHILLS Date Reviewed: 02/10/2021 Reviewed by: Maris Ramirez APRN.CNP - Fully Assessed Reason for Visit: Patient [...] Encounter Status:Closed by [facility]N Tele[facility] (PAINMN) ---- SABINO XIEA ([id number]) 1970 F Date Time Provider Department 02/02/21 MARIS RAMIREZ During your visit today, we recorded the following information about you: Maris Ramirez APRN.BATTERY SERVICE TECHNICIAN 02/02/2021 12:33 PM Signed Please advise patient that the flexion extension xrays are still needed. She has a virtual visit with me on . Copied from staff messages: Cam Arita looked at the MRI and her other [...] states she will try to get to [facility] today to get films. [facility]i Live Allergies As of Date: 02/02/2021 Noted Allergy Reaction DEXAMETHASONE 12/10/2020 8 - GI Upset Comments: HAIR LOSS PENICILLINS 12/10/2020 14 - Other: See Comments Comments: HIGH FEVER-CHILLS Date Reviewed: 01/27/2021 Reviewed by: José Miguel Suarez, mold filler and drainer - Fully Assessed Reason for Visit: Results [...] Encounter Status:Closed by MARIS RAMIREZ on 02/02/21 Normal [facility] XR LUMBAR 4V AP/LAT/ FLEX/EX Ton [...] lumbar facet arthrosis. Mild lower lumbar spondylosis. Oyster Bed Worker: PSCB Transcribe Date/Time: Feb 03 2021 9:38A Dictated by : SAULO ROCA MD This examination was interpreted and the report reviewed and electronically signed by: SAULO ROCA MD on Feb 03 2021 9:44AM EST [id number] Normal [facility] XR LUMBAR MOTION 4V AP/LAT/ FLEX/EXTon 02-02-2021 [facility] MRI LUMBAR SPINE WO/W IVCONo n 01-27-2021 MRI LUMBAR SPINE WO/W IVCON * * *Final Report* * * DATE OF EXAM: Jan 27 2021 10:37AM [facility] 0304 - MRI LUMBAR SPINE [...] and assume there are 5 lumbar-type vertebrae. Oyster Bed Worker: RASHMI Transcribe Date/Time: Jan 27 2021 11:21A Dictated by : MARIELLE SCOTT MD This examination was interpreted and the report reviewed and electronically signed by: MARIELLE SCOTT MD on Jan 27 2021 11:45AM EST [id number] Normal [facility] CNPNon 12-22-2020 CNPN Telephone (PAINMN) ---- JOVANA XIE ([id number]) 1970 F Date Time Provider Department 12/22/20 MARIS RAMRIEZ During your visit today, we recorded the following information about you: Maris Ramirez APRN.BATTERY SERVICE TECHNICIAN 12/22/2020 3:00 PM Signed ----- Message from [employer]ar[employer] Vendor sent at 12/22/2020 12:17 PM EDT ----- Regarding: Confidential // Denial: PtSantos Xie // // Meagan Silva morning all, The below information is for a peer to peer and appeal for a service you have requested. Peer to Peer Information Is a Peer to Peer available?: Yes Does Peer to Peer need to be scheduled?: No Who can schedule?: N/A Who can complete the Peer to Peer?: , PA, PRODUCT MARKETING ENGINEER, LN Allowable Peer to Peer timeframe?: 3 business days starting from 12/20/2020 Payer Information Insurance Name: [employer] Insurance P2P option 3 Case #: [id number] Appeal Information Appeal Address: [facility]. Attn: Appeals Department [address] [place] [address] Appeal Fax#: [phone] Special Appeal Instruction: Send it attention to: Appeals department and attached any pertinent supporting documenation Allowable Timeframe for Appeal: 90 days from the denial date Facility Information Location: [facility] Tax ID#: [id number] Patient Demographics Patient Last Name: Anne-Marie Patient First Name: Jovana Date of : 1970 Clinical/Denial Information Ordering Provider: Maegan Angulo Approved Services: N/A Denied Services: 99646 - MRI LUMBAR SPINE WO/W IVCON Alternative [...] NOTES:Latia ANGULO For questions, please contact April [email or web address]. Thank you for the attentionSelma. Maris Ramirez APRN.CNP 12/22/2020 3:03 PM Signed [...] a message asking for a call back. Maris Ramirez APRN.ILEANA Calli Wu Jj 12/24/2020 2:15 PM Signed Patient returned call. States that she has completed PT at [facility]. Patient given fax number to have records sent to our office. Calli Wu Jj Calli Wu Jj 12/24/2020 2:50 PM Signed PT report received from [facility]. Scanned into chart. Calli Wu Jj Ramirez APRN.ILEANA 12/24/2020 4:21 PM Signed I have now spoken to 2 physician reviewers and reviewed previous MRI and advised that PT notes are scanned into [facility]. They are requiring the PT notes be uploaded to [facility] book. I sent a message to our authorization folks to have this done. She will need to reschedule the MRI. I sent her a MtoV message advising her of this. Maris Ramirez APRN.ILEANA Calli Wu Jj 12/24/2020 4:34 PM Signed Patient notified via phone and verbalizes understanding. She will reschedule. Calli Wu Jj Allergies As of Date: 12/22/2020 Noted Allergy [...] 20 m (more content not included)... Normal [facility] Bhumi 12-17-2020 KARLA Telephone (PAINMN) ---- JOVANA XIE ([id number]) 1970 F Date Time Provider Department 12/17/20 MAEGAN ANGULO (HIST) PAINMN During your visit today, we recorded the following information about you: Calli Live 12/17/2020 12:11 PM Signed Patient called asking [...] Encounter Status:Closed by CALLI LIVE on 12/17/20 Normal [facility] CNOVon 12-10-2020 CNOV Office Visit (PAINMN) ---- JOVANA XIE ([id number]) 1970 F Date Time Provider Department 12/10/20 [...] internal providers or by letter via the [employer] Postal Service for external providers. Chief Complaint: Back pain History of Present Illness: Jovana Xie is a 50 year old who presents to [facility] Pain Management Department for a follow [...] prior to (more content not included)... Normal [facility] OT-CT ABD/PELVIS WO CON IMPO RTon 10-17-2020 OT-CT ABD/PELVIS WO CON IMPORT Images were obtained outside of [facility] [id number] [id number] Normal [facility] Vital Signs Date Time Vital Sign Value Performing Clinician Facility 11-14-2023 12:31-0400 Blood Pressure Location Navdeep Valiente [facility] 11-14-2023 12:31-0400 Diastolic blood pressure 83 mm[Hg] Navdeep Valiente [facility] 11-14-2023 12:31-0400 Heart rate 71 /min Navdeep Valiente [facility] 11-14-2023 12:31-0400 Respiratory rate 16 /min Mohamad Mouchli [facility] 11-14-2023 12:31-0400 Systolic blood pressure 122 mm[Hg] Mohamad Mouchli [facility] 10-22-2023 11:30-0400 Blood Pressure Location Mohamad Mouchli [facility] 10-22-2023 11:30-0400 Diastolic blood pressure 64 mm[Hg] Mohamad Mouchli [facility] 10-22-2023 11:30-0400 Heart rate 63 /min Mohamad Mouchli [facility] 10-22-2023 11:30-0400 Mean blood pressure 83 mm[Hg] Mohamad Mouchli [facility] 10-22-2023 11:30-0400 Respiratory rate 13 /min Mohamad Mouchli [facility] 10-22-2023 11:30-0400 SaO2% (BldA) [Mass fraction] 93 % Mohamad Mouchli [facility] 10-22-2023 11:30-0400 Systolic blood pressure 122 mm[Hg] Mohamad Mouchli [facility] 10-22-2023 11:20-0400 Blood Pressure Location Mohamad Mouchli [facility] 10-22-2023 11:20-0400 Diastolic blood pressure 63 mm[Hg] Mohamad Mouchli [facility] 10-22-2023 11:20-0400 Heart rate 64 /min Mohamad Mouchli [facility] 10-22-2023 11:20-0400 Mean blood pressure 79 mm[Hg] Mohamad Mouchli [facility] 10-22-2023 11:20-0400 Respiratory rate 12 /min Mohamad Mouchli [facility] 10-22-2023 11:20-0400 SaO2% (BldA) [Mass fraction] 93 % Mohamad Mouchli [facility] 10-22-2023 11:20-0400 Systolic blood pressure 111 mm[Hg] Mohamad Mouchli [facility] 10-22-2023 11:05-0400 Blood Pressure Location Mohamad Mouchli [facility] 10-22-2023 11:05-0400 Diastolic blood pressure 57 mm[Hg] Mohamad Mouchli [facility] 10-22-2023 11:05-0400 Heart rate 64 /min Mohamad Mouchli [facility] 10-22-2023 11:05-0400 Mean blood pressure 72 mm[Hg] Mohamad Mouchli [facility] 10-22-2023 11:05-0400 Respiratory rate 25 /min Mohamad Mouchli [facility] 10-22-2023 11:05-0400 SaO2% (BldA) [Mass fraction] 95 % Mohamad Mouchli [facility] 10-22-2023 11:05-0400 Systolic blood pressure 102 mm[Hg] Mohamad Mouchli [facility] 10-22-2023 10:52-0400 Body temperature 98.42 [degF] Mohamad Mouchli [facility] 10-22-2023 09:47-0400 Body temperature 97.52 [degF] Navdeep CrockettTheramyt [employer] [facility] 10-18-2023 09:31-0400 Blood Pressure Location Navdeep Crockettmaye [facility] 10-18-2023 09:31-0400 Diastolic blood pressure 82 mm[Hg] Jermainesury Keirali [facility] 10-18-2023 09:31-0400 Heart rate 76 /min Jermainesury KeiraTheramyt [employer] 10-18-2023 09:31-0400 Systolic blood pressure 118 mm[Hg] [facility] [facility] [employer] Vitalea SciencelanTheramyt [employer] [facility] 11-08-2022 09:45-0400 Body height 162.56 cm Charu Calvdominga Other [employer] Other 11-08-2022 09:45-0400 Body mass index (BMI) [Ratio] 51.49 kg/m2 Charu Calvey Other [employer] Other 11-08-2022 09:45-0400 Body weight 136.08 kg Charu Calvey Other [employer] Other 10-11-2022 11:15-0400 Body height 162.56 cm Charu Calvey Other [employer] Other 10-11-2022 11:15-0400 Body mass index (BMI) [Ratio] 51.49 kg/m2 Charu Calvey Other [employer] Other 10-11-2022 11:15-0400 Body weight 136.08 kg Charu Calvey Other [employer] Other 06-21-2022 11:30-0500 Body height 162.56 cm Charu Pham Other [employer] Other 06-21-2022 11:30-0500 Body mass index (BMI) [Ratio] 48.06 kg/m2 Charu Pham Other [employer] Other 06-21-2022 11:30-0500 Body weight 127.01 kg Charu Pham Other [employer] Other 09-22-2021 14:30-0400 Diastolic blood pressure 77 mm[Hg] MD Charu Pham Work Phone: [facility] 09-22-2021 14:30-0400 Heart rate 65 /min MD Charu Pham Work Phone: [facility] 09-22-2021 14:30-0400 Respiratory rate 16 /min MD Charu Pham Work Phone: [facility] 09-22-2021 14:30-0400 SaO2% (BldA) [Mass fraction] 95 % MD Charu Pham Work Phone: [facility] 09-22-2021 14:30-0400 Systolic blood pressure 131 mm[Hg] MD Charu Pham Work Phone: [facility] 09-22-2021 13:37-0400 Inhaled oxygen flow rate 8 L/min MD Charu Pham Work Phone: [facility] 09-22-2021 12:37-0400 Body height 162.56 cm MD Charu Pham Work Phone: [facility] 09-22-2021 12:37-0400 Body mass index (BMI) [Ratio] 54.1 kg/m2 MD Charu Pham Work Phone: [facility] 09-22-2021 12:37-0400 Body weight 143 kg MD Charu Pham Work Phone: [facility] 09-22-2021 11:44-0400 Body temperature 97.6 [degF] MD Charu Pham Work Phone: [facility] 07-29-2021 09:30-0500 Body height 162.56 cm Charu Calvey Other [employer] Other 07-29-2021 09:30-0500 Body mass index (BMI) [Ratio] 53.21 kg/m2 Charu Calvey Other [employer] Other 07-29-2021 09:30-0500 Body weight 140.62 kg Charu Calvey Other [employer] Other 06-17-2021 09:15-0500 Body height 162.56 cm Charu Calvey Other [employer] Other 06-17-2021 09:15-0500 Body mass index (BMI) [Ratio] 53.21 kg/m2 Charu Calvey Other [employer] Other 06-17-2021 09:15-0500 Body weight 140.62 kg Charu Calvey Other [employer] Other 05-20-2021 09:30-0500 Body height 162.56 cm Charu Calvey Other [employer] Other 05-20-2021 09:30-0500 Body mass index (BMI) [Ratio] 51.49 kg/m2 Charu Calvey Other [employer] Other 05-20-2021 09:30-0500 Body weight 136.08 kg Charu Calvey Other [employer] Other 03-23-2021 11:00-0400 Body height 162.56 cm Charu Pham Other [employer] Other 03-23-2021 11:00-0400 Body mass index (BMI) [Ratio] 51.15 kg/m2 Charu Pham Other [employer] Other 03-23-2021 11:00-0400 Body weight 135.17 kg Charu Pham Other [employer] Other Encounters Encounter Date Encounter Type Care Provider Facility Start: 12-04-2024 ambulatory Melissa Erazo Facility : [facility] Start: 12-27-2023 ambulatory Melissa Erazo Facility : [facility] Start: 12-14-2023 End: 12-14-2023 ambulatory [facility] Start: 12-03-2023 End: 12-03-2023 ambulatory Melissa Erazo Facility:[facility] Start: 11-27-2023 End: 11-27-2023 ambulatory Melissa Erazo Facility: [facility] [place] Start: 11-14-2023 End: 11-14-2023 ambulatory Navdeep Valiente Facility:[facility] Start: 11-14-2023 End: 11-14-2023 Patient encounter procedure Navdeep Valiente [facility] Start: 10-30-2023 End: 10-30-2023 ambulatory Melissa Erazo Facility: [facility] Start: 10-25-2023 End: 10-25-2023 ambulatory Melissa Erazo Facility: [facility] Start: 10-22-2023 End: 10-22-2023 ambulatory Navdeep Valiente Facility:[facility] Start: 10-22-2023 End: 10-22-2023 Patient encounter procedure Navdeep Valiente [facility] Start: 10-19-2023 End: 10-19-2023 ambulatory JERMAINESury [facility] Start: 10-18-2023 End: 10-18-2023 ambulatory Navdeep Valiente Facility:[facility] Start: 10-18-2023 End: 10-18-2023 Patient encounter procedure [facility] Health Start: 09-26-2023 ambulatory Melissa Erazo Facility:[facility] Start: 09-25-2023 End: 09-25-2023 Lab Drop off Melissa Erazo [facility] Start: 09-25-2023 End: 09-25-2023 ambulatory Melissa Erazo Facility:[facility] Start: 02-16-2023 End: 02-16-2023 ambulatory [facility] Start: 12-20-2022 End: 12-20-2022 ambulatory [facility] Start: 11-08-2022 End: 11-08-2022 ambulatory Charu Pham Other [employer] Other Start: 11-08-2022 Office outpatient vi sit 15 minutes Charu Ankit [facility] Start: 10-27-2022 End: 10-28-[address] ALEM PASCUAL Facility: Start: 10-11-2022 Office outpatient vi sit 15 minutes Charu Calvey [facility] Start: 10-11-2022 End: 10-11-2022 ambulatory MD Elvia Sweeney Work Phone: [facility] Work Phone: Start: 10-11-2022 End: 10-11-2022 Patient encounter procedure MD Elvia Sweeney Work Phone: [facility] Start: 09-25-2022 End: 09-25-2022 Lab Drop off Melissa Erazo [facility] Start: 06-21-2022 Office outpatient vi sit 15 minutes [facility] Start: 06-21-2022 End: 06-21-2022 ambulatory MD Elvia Sweeney Work Phone: [facility] Work Phone: Start: 06-21-2022 End: 06-21-2022 Patient encounter procedure MD Elvia Sweeney Work Phone: [facility] Start: 12-27-2021 End: 12-28-[address] ELVIA SWEENEY . Facility:[facility] Start: 12-01-2021 End: 12-02-[address] ELVIA SWEENEY . Facility:[facility] Start: 11-30-2021 End: 12-01-[address] ELVIA SWEENEY . Facility:[facility] Start: 11-29-2021 End: 11-30-[address] ELVIA SWEENEY . Facility:[facility] Start: 11-25-2021 End: 11-25-2021 ambulatory BERRY VIRGEN Facility:[facility] Start: 11-23-2021 Encounter for preprocedural laboratory examination DR BRAD SHORE [facility] Start: 11-21-2021 End: 11-21-[address] BRAD SHORE Facility:[facility] Start: 11-21-2021 End: 11-21-2021 Encounter for preprocedural laboratory examination DR BRAD SHORE Facility:[facility] Start: 09-22-2021 End: 09-22-2021 Admission to same day surgery center MD Charu Pham Work Phone: [facility] [address] Start: 09-20-2021 End: 09-20-2021 Patient encounter procedure MD Charu Pham Work Phone: [facility] Start: 09-15-2021 End: 09-15-2021 Patient encounter procedure MD Charu Pham Work Phone: [facility] Start: 07-29-2021 End: 07-29-2021 ambulatory Charu Pham Other [employer] Other Start: 07-29-2021 Office outpatient vi sit 15 minutes Charu Jayloney [facility] Start: 06-17-2021 End: 06-17-2021 ambulatory Charu Calvdominga Other [employer] Other Start: 06-17-2021 Postop follow up vis it related to original px Charu Calvey [facility] Start: 05-20-2021 End: 05-20-2021 ambulatory Charuruth Pham Other [employer] Other Start: 05-20-2021 Postop follow up vis it related to original px Charu Calvey [facility] Start: 03-23-2021 Encounter for other preprocedural examination Charu Calvey [facility] Start: 03-23-2021 Office outpatient ne w 45 minutes Charu Calvey [facility] Start: 02-02-2021 End: 02-02-2021 Subsequent hospital visit by physician Ester [facility] Comment on above: Facet arthropathy, l [...] right, separate times H/O: hysterectomy S/P hysterectomy Nikhillane sury Adanmario History of cholecystectomy S/P cholecyste ctomy Jermainesury Adanmario History of operative procedure on lumbar spinal structure Melissa Erazo Comment on above: L4-L5 disc December 2015 Tonsillectomy and adenoidectomy Melissa Erazo Plan of Treatment Date Care Activity Detail Author Start: 02-02-2023 Influenza vaccination INFLUENZA (#1) [facility] Start: 06-04-2022 DEPRESSION ASSESSMENT DEPRESSION ASSESSMENT [facility] Start: 2021 SHINGRIX VACCINE (1 of 2) SHINGRIX VACCINE (1 of 2) [facility] Start: 2016 COLOGUARD (FIT-DNA) COLOGUARD (FIT-DNA) [facility] Start: 2016 Colonoscopy COLONOSCOPY [facility] Start: 2016 COLORECTAL CANCER SCREENING COLORECTAL CANCER SCREENING [facility] Start: [address] COLONOGRAPHY [facility] Start: 2016 DIABETES SCREEN DIABETES SCREEN [facility] Start: 2016 FECAL OCCULT BLOOD FECAL OCCULT BLOOD [facility] Start: 2016 LIPID SCREEN LIPID SCREEN [facility] Start: 2016 SIGMOIDOSCOPY SIGMOIDOSCOPY [facility] Start: 2011 Mammography MAMMOGRAM [facility] Start: 2001 HPV TESTING HPV TESTING [facility] Start: 1992 PAP TESTING PAP TESTING [facility] Start: 1990 Urine microalbumin profile DTAP,TDAP,TD (1 - Tdap) [facility] Start: 1989 HEPATITIS C SCREENING HEPATITIS C SCREENING [facility] Start: 1989 HIV SCREENING HIV SCREENING [facility] Start: 1977 PNEUMOCOCCAL (1 - PCV) PNEUMOCOCCAL (1 - PCV) [facility] Start: 1971 COVID-19 VACCINE (#1) COVID-19 VACCINE (#1) [facility] Start: 1971 HEPATITIS B (1 of 3 - 3-dose series) HEPATITIS B (1 of 3 - 3-dose series) [facility] Patient referral [facility] Work Phone: Payers Date Payer Category Payer Self-pay [id number] 2017 Medicaid [id number] [id number] 2017-[address] [place] [address] Medicaid [id number] 1971 Unknown [id number] 2.16.840.1.844867.3.579.2.593 1971 Unknown [id number] 2.16.840.1.763677.3.579.2.593 1971 Unknown [id number] 2.16.840.1.290737.3.579.2.593 1971 Unknown [id number] 2.16.840.1.837195.3.579.2.593 1971 Unknown [id number] 2.16.840.1.797220.3.579.2.593 1971 Unknown [id number] 2.16.840.1.468027.3.579.2.593 1971 Unknown [id number] 2.16.840.1.382255.3.579.2.593 1971 Unknown [id number] 2.16.840.1.106500.3.579.2.593 1971 Unknown [id number] 2.16.840.1.912168.3.579.2.593 1971 Unknown [id number] 2.16.840.1.736416.3.579.2.727 1971 Unknown [id number] 2.16.840.1.252856.3.579.2.727 1971 Unknown [id number] 2.16.840.1.203360.3.579.2.727 1971 Unknown [id number] 2.16.840.1.779432.3.579.2.727 1971 Unknown [id number] 2.16.840.1.029019.3.579.2.727 1971 Unknown [id number] 2.16.840.1.813385.3.579.2.727 1971 Unknown [id number] 2.16.840.1.827873.3.579.2.727 1971 Unknown [id number] 2.16.840.1.790729.3.579.2.727 1971 Unknown [id number] 2.16.840.1.980581.3.579.2.727 1971 Unknown [id number] 2.16.840.1.530422.3.579.2.727 1971 Unknown [id number] 2.16.840.1.965238.3.579.2.727 1959 Medicaid [id number] 1958 Medicare [id number] 2.16.840.1.214890.19 Unknown [facility] [id number] [facility] [id number] Unknown [id number] 2.16.840.1.138345.3.579.2.531 Social History Date Type Detail Facility Start: 09-15-2021 End: 09-22-2021 Tobacco smoking status NHIS Smoker (finding) [facility] Start: 1970 Sex Assigned At Female F [facility] Start: 12-10-2020 Sex Assigned At F [facility] Start: 09-25-2022 Tobacco smoking status Heavy t obacco smoker (finding) [facility] Tobacco smoking status Never [facility] Start: 12-10-2020 [facility] History of tobacco use Cigarette Smoker C [facility] Start: 12-10-2020 Cigarettes smoked current (pack per day) - Reported 0.5 [facility] Start: 12-10-2020 Tobacco use and exposure Smokeless tobacco non-user [facility] Start: 12-10-2020 Alcohol intake Lifetime non-d joey (finding) [facility] Start: 12-14-2020 Gender identity Identifies as female gender (finding) [facility] Start: 12-14-2020 Sexual orientation Heterosexual (fin zander) [facility] Start: 12-28-2020 End: 01-27-2021 Exposure to SARS-CoV-2 (event) Not sure [facility] Start: 09-25-2023 End: 11-14-2023 Tobacco smoking status Ex-smoker (finding) [facility] Goals Date Patient Goal Desired Activity /State Functional Status Date Assessment Result Facility 11-14-2023 Functional Status N/A [facility] 10-22-2023 Functional Status N/A [facility] 10-18-2023 Functional Status N/A [facility] Clinical Notes 12-10-2020 to 12-15-2023 Note Date & Type Note Facility 12-15-2023 Note In light of recurren t chest pain and EVANS, risk factors of HTN, DM, current smoker and obesity. Further testing with echocardiogram and stress test ordered. [facility] 12-15-2023 Note In light of EVANS, piter st pain, new onset a fib will order echocardiogram for cardiac evaluation of cardiac and valvular function, and lexiscan for cardiac perfusion- she states that she is not able to walk a treadmill r/t SOB. [facility] 12-15-2023 Note Hypertension is unch anged. Continue medications as prescribed Blood pressure will be reassessed at the next regular appointment. [facility] 12-15-2023 Note Pt states that she w as diagnosed with YU in the past and know that she needs to wear a Cpap- but she was not able to wear in the past and states she needs to be re-evaluated and f/U with sleep medicine [facility] 12-14-2023 Note Patient here for fol low up 30 day event monitor. She was started on Eliquis by Dr. Talley for new onset afib. She denies lightheadedness/syncope and bleeding on Eliquis. Denies chest pain. Says EVANS remains unchanged and LE edema is improving. Review of Systems Cardiovascular: Positive for dyspnea on exertion, leg swelling (improving) and palpitations. Respiratory: Positive for shortness of breath. Musculoskeletal: Positive for back pain. Gastrointestinal: Positive for nausea. Neurological: Positive for headaches. All other systems reviewed and are negative. [facility] 12-14-2023 Note [facility] CARDIOLOGY PROGR ESS NOTE HPI: Jovana Xie is a 53 y.o. female here for routine F/U 53 y.o. year old female With past medical history of hyperlipidemia, hypertension, COPD, and obstructive sleep apnea. Patient here for follow up 30 day event monitor. She was started on Eliquis by Dr. Talley for new onset afib. She denies lightheadedness/syncope and bleeding on Eliquis. Denies chest pain. Says EVANS remains unchanged and LE edema is improving. Reports palpitations almost daily and fast heart rate. Admits SOB on exertion- and that she would not be able to walk up 1-2 flights of stairs or 1 block without SOB stopping her. Admits chest heaviness with exertion with SOB, denied radiation, nausea or sweating with CP. Reports this lasts only a couple minutes and resolves with rest. Admits weight gain over the last couple of months. Admits that she does not sleep well at night, + snoring, and awakens multiple times a night and C/o daytime sleepiness. Chest Pain This is a recurrent problem. The current episode started more than 1 month ago. The onset quality is sudden. The problem occurs every several days. The problem has been unchanged. The pain is present in the substernal region. The pain is at a severity of 3/10. The pain is mild. The quality of the pain is described as pressure. The pain does not radiate. Associated symptoms include exertional chest pressure, irregular heartbeat, palpitations and shortness of breath. The pain is aggravated by exertion. She has tried rest for the symptoms. The treatment provided no relief. Risk factors include post-menopausal, sedentary lifestyle, smoking/tobacco exposure, lack of exercise and obesity. Her past medical history is significant for diabetes, hypertension and sleep apnea. Pertinent negatives for past medical history include no COPD. Her family medical history is significant for diabetes, heart disease and hypertension. Review of Systems Cardiovascular: Positive for dyspnea on exertion, leg swelling (improving) and palpitations. Respiratory: Positive for shortness of breath. Musculoskeletal: Positive for back pain. Gastrointestinal: Positive for nausea. Neurological: Positive for headaches. All other systems reviewed and are negative. Previous HPI per Dr Talley Subjective Jovana Xie is a 53 y.o. [...] 130/88 and HR 141. [facility] and has lost 35# since last visit. Had labs recently for Dr. Erazo. She said since she wasn't getting all her meds [facility]. Erazo wanted to start from scratch with her meds. She was not restarted on carvedilol, verapamil, or atorvastatin yet. States she has bottles of them at home still. Visit Vitals BP 138/86 (BP Location: Right wrist, Patient Position: Sitting) Pulse 78 Ht 1.626 m (5' 4 ) Wt 124 kg (273 lb) SpO2 95% BMI 46.86 kg/m??? Smoking Status Every Day BSA 2.37 m??? Allergies Allergen Reactions Dexamethasone Other HAIR LOSS Hydrocodone-Acetaminophen Lisinopril Penicillins Other HIGH FEVER-CHILLS Medications: Current Outpatient Medications on File Prior to Visit Medication Sig Dispense Refill Advair Diskus 250-50 mcg/dose diskus inhaler INHALE 1 PUFF BY MOUTH TWICE A DAY *RINSE MOUTH AFTER USE* albuterol 90 mcg/actuation inhaler albuterol sulfate HFA 90 mcg/actuation aerosol inhaler apixaban (Eliquis) 5 mg tablet Take 1 tablet (5 mg) by mouth in the morning and at bedtime. 60 tablet 3 budesonide-formoteroL (Symbicort) 160-4.5 mcg/actuation inhaler Symbicort 160 mcg-4.5 mcg/actuation HFA aerosol inhaler famotidine (Pepcid) 20 mg tablet famotidine 20 mg tablet TAKE 1 TABLET BY MOUTH EVERY DAY AT BEDTIME FOR 30 DAYS gabapentin (Neurontin) 100 mg capsule if needed. hydroCHLOROthiazide (HYDRODiuril) 25 mg tablet Take 25 mg by mouth in the morning. losartan (Cozaar) 100 mg tablet Take 100 mg by mouth in the morning. metFORMIN (Glucophage) 500 mg tablet metformin 500 mg tablet TAKE 1 TABLET BY MOUTH EVERY DAY omeprazole (PriLOSEC) [address] capsule omeprazole 40 mg capsule,delayed release TAKE 1 CAPSULE BY MOUTH EVERY MORNING 30 TO 60 MINUTES PRIOR TO BREAKFAST rimegepant (Nurtec ODT) 75 mg tablet,disintegrating Nurtec ODT 75 mg disintegrating tablet TAKE 1 TABLET AT ONSET OF MIGRAINE, MAX 1 TABLET DAILY 2 DAYS PER WEEK [DISCONTINUED] carvedilol (Coreg) 12.5 mg tablet Take 1 tablet (12.5 mg) by mouth with breakfast and with evening meal. 60 tablet 3 [DISCONTINUED] semaglutide (Ozempic) 0.25 mg or 0.5 mg(2 mg/1.5 mL) pen injector Ozempic 0.25 mg or 0.5 mg (2 mg/1.5 mL) subcutaneous pen injector INJECT (more content not included)... [facility] 12-14-2023 Note [id number] 3 fema le, HTN, DM Continue eliquis anticoagulation, and coreg Event monitor to be reviewed by Dr Watts RTC with Dr Watts in 1-3 months [facility] 12-03-2023 Note Patient Education Cardiovascular Atrial Fibrillation [...] these instructions at home: Medicines ? Take oknw-wqu-gnnyjmj and prescription medicines only as told by [...] A seizure. Thes (more content not included)... [facility] 10-23-2023 Note [id number] [facility] 10-22-2023 Evaluation + Plan note Extrac olesya from: Title:ANES Post General Author:Nolan Santiago DO Date:10/22/23 Plan Transfer/Discharge: Patient exhibiting no signs of N/V. Hydration status is adequate. Extracted from: Title:Jack Basic PRE Author:Jordin Santiago DO Date:10/22/23 Plan [place] [employer] Anesthesiologists (ASA) physical status classification: Class III. Anesthetic Preoperative Plan: Anesthesia General. Future Appointments Appointment Date:10/30/2023 09:45:00 AM Scheduled Provider:Melissa Erazo MD Location:[facility] Appointment Type:[facility]05-20-2024 Hospital Discharge instructions Patient Education 10/22/2023 11:00:14 [...] reduce GERD symptoms. Medicines. These may include: ?Cqgb-cyd-caczuiq antacids. ?Medicines that make your stomach empty [...] may include: ?Fatty foods, like fried foods. ?[employer] fruits, like oranges or lemon. ?Other foods [...] Do not drink alcohol. General instructions Take jacq-ilf-qtcuqqz and prescription medicines only as told by [...] provider. Document Revised: 07/18/2022 Document Reviewed: 07/18/2022 [employer] Patient Education 2022 [email or web address]. 10/22/2023 11:00:06 Diverticulosis MAGR (CUSTOM) Diverticulosis Many [...] unsweetened, w/added ascorbic acid 1 cup 0.5 [place] 1 cup 0.7 Vegetables Cooked Green beans 1 cup 4.0 Carrots 1/2 cup sliced 2.3 Peas 1 cup 8.8 Potato (baked, with skin) 1 medium potato 3.8 Raw [place] (with peel) 1 cucumber 1.5 Lettuce 1 [...] 8.7 Peanuts 1/2 cup 7.9 [facility]. SEEK IMMEDIATE MEDICAL CARE IF: You [...] Nutrient Database for Standard Reference. Available at http://www.nal.usda.gov/fnic/foodcomp/search/. Information adapted from: ExitCare Patient Information 2009 [employer]. MoonbasaDaAGC 2012 http://www.Health Data Vision/contents/loicydyprqso-walnyqm-czldzb-the-basics 10/22/2023 11:00:00 Colon Polyps Colon Polyps Colon [...] hard liquor (44 mL). General instructions Take xnlm-jus-cjtztll and prescription medicines only as told by [...] provider. Document Revised: 09/08/2020 Document Reviewed: 09/08/2020 [employer] Patient Education 2022 [email or web address]. 10/22/2023 10:59:59 Colonoscopy, Care After Surgery [facility] (CUSTOM) Colonoscopy Care After Surgery Please read the instructions outlined below and refer to this sheet in the next few weeks. These discharge instructions provide you with general information on caring for yourself after you leave thehospital. Your doctor may also give you specific [...] day. 10/22/2023 10:59:56 Endoscopy, Care After Procedure [facility] (CUSTOM) Endoscopy Care After Procedure Please read the instructions outlined below and refer to this sheet in the next few weeks. These discharge instructions provide you with general information on caring for yourself after you leave thehospital. Your doctor may also give you specific [...] Document Re-Released: 11/12/2006 ExitCare Patient Information 2009 [employer]. Follow Up Care 10/18/2023 10:35:15 With:Navdeep Valiente Address: [address] [place] [address], [address] [place] [address]- [phone] Business (1) When:1 to 2 weeks Comments:Call for any problems. [facility] Subjective Jovana [...] 130/88 and HR 141. [facility] and has lost 35# since last visit. Had labs recently for Dr. Erazo. She said since she wasn't getting all her meds [facility] in [facility], [facility]. Erazo wanted to start from scratch [...] complication, without long-term current use of insulin ([facility]) Diabetes mellitus type II, controlled ([facility]) Derangement of knee Dyspnea Extrinsic asthma with status asthmaticus Headache Hemorrhoids Low back pain Metabolic syndrome X Morbid obesity ([facility]) Obesity, Class III, BMI 40-49.9 (morbid obesity) ([facility]) Osteoarthritis Pain in right foot Pain in [...] Echo: 07/06/2021 Normal ventricu (more content not included)...[facility]09-15-2023 NoteCardiology Clinic Note Subjective Jovana Xie is [...] Imaging and other test (more content not included)...[facility]09-15-2023 NotePatient here for 2 mo [...] headaches. All other systems reviewed and are negative.[facility] 12-20-2022 NoteCardiology Clinic Note Subjective Jovana Xie is a 52 y.o. year old female With past medical history of hyperlipidemia, hypertension, GERD, insulin resistance, migraines, COPD, and obstructive sleep apnea on CPAP seen in follow-up. Patient Active Problem List Diagnosis Hypertension Asthma Chronic pain syndrome Controlled type 2 diabetes mellitus without complication, without long-term current use of insulin ([facility]) Diabetes mellitus type II, controlled ([facility]) Derangement of knee Dyspnea Extrinsic asthma with status asthmaticus Headache Hemorrhoids Low back pain Metabolic syndrome X Morbid obesity ([facility]) Obesity, Class III, BMI 40-49.9 (morbid obesity) ([facility]) Osteoarthritis Pain in right foot Pain in [...] CBC; Future - Comprehensi (more content not included)...[facility] 12-20-2022 NotePatient here for 1 [...] headaches. All other systems reviewed and are negative.[facility] 11-08-2022 Evaluation note* Encounter Date Diagnosis Assessment Notes Treatment Notes Treatment Clinical Notes Nov, Right hand pain (ICD-10 - M79.641) Nov, Trigger thumb, right thumb (ICD-10 - M65.311) Patient is progressing well. May return for repeat injection or to discuss surgical release if recurs. Call with questions/concerns. [facility] Other 05-26-2023 NotePROCEDURE: XR HIPS ARMAAN 3_4V [...] Electronically authenticated by: ALEM PASCUAL Date: 2022-10-27 09:15[facility]05-26-2023 NotePROCEDURE: XR HIPS ARMAAN 3_4V WO [...] Electronically authenticated by: ALEM PASCUAL Date: 2022-10-27 09:15[facility]05-10-2023 Evaluation note* Encounter Date Diagnosis Assessment [...] followup with neurosurgeon regarding left hand/arm numbness [facility] Other 01-18-2023 Evaluation note* Encounter Date Diagnosis [...] further treatment options. Call with questions/concerns . [facility] Other 02-25-2022 Evaluation note* Encounter Date Diagnosis Assessment Notes Treatment Notes Treatment Clinical Notes Jul, Cubital tunnel syndrome on left (ICD-10 - G56.22) Patient doing well, progress as tolerated Jul, Left carpal tunnel syndrome (ICD-10 - G56.02) Jul, Other specified postprocedural states (ICD-10 - Z98.890) Jul, Numbness of right hand (ICD-10 - R20.0) We will refer patient for EMG right upper extremity [facility] 12-17-2021 Evaluation note* Encounter Date Diagnosis [...] Other specified postprocedural states (ICD-10 - Z98.890) [facility] 10-20-2021 Evaluation note* Encounter Date Diagnosis [...] G56.02) Mar, Pre-op exam (ICD-10 - Z01.818) [facility] Other 09-09-2021 NoteHNO ID: [id number] Author: Maris Ramirez APRN.[facility] Service: ? Author Type: Nurse Practitioner Type: Progress Notes Filed: 02/11/2021 7:54 AM Note Text: Chronic Pain Clinic Virtual Visit Evaluation Patient is identified by name and date of . This is a virtual visit using T3 MOTION video visit. It required patient-provider interaction for the medical decision making as documented below. Date: February 10, 2021 - 7:34 AM Chief Complaint: lower back pain SUBJECTIVE: Jovana Xie is a 50 year old who presents to [facility] Pain Management Department for a follow [...] Flexion/extension xrays of Lumbar spine 3. Ms. Xie to return to clinic to discuss results [...] injections with her local pain physician in [place]. She does not recall the names of [...] areas of pain. Also photos sent via MtoV were reviewed during this visit. New Imaging [...] Obesity, Class III, BMI 40-49.9 (morbid obesity) ([facility]) Jovana Xie is a 50 year old female with lower back pain that intermittently radiates down to her buttocks and posterior legs. She is s/p lumbar decompression surgery approx 4-5 years ago. She states that she was pain free up until about a year and a half ago (more content not included)...[facility]09-01-2021 NoteHNO ID: [id number] Author: Kourtney Johnson RT(R) Service: ? Author Type: Knit Goods Cutter Hand Type: Progress Notes Filed: 02/02/2021 5:23 PM [...] IV DATA: Not applicable SIGNED BY: Kourtney Johnson, RT(R) February 02, 2021 5:23 [facility]08-26-2021 NoteHNO ID: [id number] Author: SHABANA Nelson Service: Radiology Author Type: Knit Goods Cutter Hand Type: Progress Notes Filed: 01/27/2021 10:27 AM [...] Xie DATE: January 27, 2021 TIME: 10:02 [facility]07-09-2021 NoteHNO ID: [id number] Author: Maegan Angulo MD Service: ? Author [...] internal providers or by letter via the [employer] for external providers. Chief Complaint: Back pain History of Present Illness: Jovana Xie is a 50 year old who presents to [facility] Pain Management Department for a follow [...] line specific nursing protocol (more content not included)...[facility] Evaluation + Plan note No data available for this section [facility] App[facility]ments Appointment Date:10/25/2023 09:30:00 AM Scheduled Provider:Melissa Erazo MD Location:[facility] Future Appointments Appointment Date:10/22/2023 10:30:00 AM Scheduled Provider: Location:[facility] Appointment Type:Surgery FT Appointment Date:10/25/2023 09:30:00 AM Scheduled Provider:Melissa Erazo MD Location:[facility] Appointment Type:[facility] Evaluation + Plan note Future Appointments Appointment Date:11/27/2023 09:15:00 AM Scheduled Provider:Melissa Erazo MD Location:[facility] Appointment Type:[facility] Evaluation noteNo assessment information available [facility] Work Phone: Evaluation noteNort [facility] Other Evaluation note* Diagnosis Facet arthropathy, lumbar Lumbosacral spondylosis without myelopathy Degenerative disc disease, lumbar Degeneration of lumbar or lumbosacral intervertebral disc documented in this encounter [facility] general Narrative - Reported* Type Description Date Medical History CARPAL TUNNEL Medical History HTN Medical History hyperglycemia Surgical History HYSTERECTOMY Surgical History TONSILECTOMY Surgical History BACK SURGERY Surgical History cholecystectomy Surgical History dental surgery Hospitalization History See Above [facility] Other History general Narrative - ReportedNort [facility] Other Hospital Discharge instructions No data available for this section [facility] No data available for this section [facility] Summary Purpose Family History No Family [...] of right [place] (R20.0) Referral Organization [facility] Referring Provider First Name Charu Referring Provider Last Name Ankit Referring Provider Specialty Hand Surger y Referred Organization Unknown Facility Referred Provider Specialty Neurology Referral Priority Routine Additional Source Comments INFORMATION SOURCE (unrecogn ized section and content) DATE CREATED AUTHOR 07/07/2021 [facility] DATE CREATED AUTHOR AUTHOR'S ORGANIZ ATION 11/10/2022 [facility] DATE CREATED AUTHOR AUTHOR'S ORGANIZ ATION 12/20/2023 [facility] DATE CREATED AUTHOR AUTHOR'S ORGANIZ ATION 12/20/2023 [facility] DATE CREATED AUTHOR AUTHOR'S ORGANIZ ATION 12/24/2023 [facility] Care Teams (unrecognized sec tion and content) Team Status: Inactive Member Role Status Dates Charu Pham MD Attending Provider Active Elvia Sweeney MD Primary Care Provider Active Team Status: Active Member Role Status Dates Elvia Sweeney MD Primary Care Provider Active Team Status: Inactive Member Role Status Dates Elvia Sweeney MD Primary Care Provider Active Charu Pham MD Attending Provider Active Hazardous Substances Engineer Relationship Specialty Start Date End Date Asha Louis PA-C [address] [place] [address] Referring Neurology 12/09/20 Goals (unrecognized section and [...] or prosecute any alcohol or drug abuse patient.[facility] FOR RECORDS PERTAINING TO PATIENTS WHO [...] BE BASED ON THE PRIMARY CLINICAL RECORDS. [facility] [employer] [facility]. provides no warranty or guarantee of the accuracy or completeness of information in this document.
== END 2023-12-26 08:30 | disposition home or self-care (01) ==
LOC: NM 08:30
PROVIDERS: PCP Family Medicine; Visit Provider Nurse Practitioner
DX: R07.89 Other chest pain (principal); E11.9 Type 2 diabetes mellitus without complications; R06.09 Other forms of dyspnea
CPT/HCPCS: 78452; A9500

== ENCOUNTER 2024-01-01 08:59 | Outpatient (OUT) | payer MEDICARE, SELFPAY ==
--- OUTSIDE RECORDS SUMMARY | 2024-01-01 09:14 | XMS_ITS | CCD ---
Author Organization [facility] Care Team Providers Care Rig Site Engineer Name Role Phone MD Charu Pham Attending Provider MD Elvia Sweeney Primary Care Provider Charu Pham Unavailable MD Elvia Sweeney Primary Care Provider MD Charu Pham Attending Provider SANAZ, ELVIA Alex Primary Care Physician MD Elvia Sweeney Primary Care Provider [phone] MD Charu Pham Attending Provider SWEENEY ., DR ELVIA Alex Attending Unavailable SWEENEY ., DR ELVIA Alex Consulting Unavailable SWEENEY ., DR ELVIA Alex Admitting Unavailable SWEENEY ., DR ELVIA Alex Primary Care Unavailable SWEENEY ., DR ELVIA Alex Primary Care Unavailable ALGHOTHJOVI, NAVDEEP Admitting Unavailable ALGHOCRISTINA MOHAMAD Attending Unavailable MONE, DR SALINAS Admitting Unavailable SWEENEY ., DR ELVIA Alex Primary Care Unavailable MONE, DR SALINAS Attending Unavailable MONE, DR SALINAS Consulting Unavailable BERRY VIRGEN Admitting Unavailable SWEENEY ., DR ELVIA Alex Primary Care Unavailable BERRY VIRGEN Attending Unavailable BERRY VIRGEN Consulting Unavailable WATTS, CAITLYN Consulting Unavailable SWEENEY ., DR ELVIA Alex Primary Care Unavailable JOHANNA MAHAN Admitting Unavailable JOHANNA MAHAN Attending Unavailable JOHANNA MAHAN Consulting Unavailable SWEENEY ., DR ELVIA Alex Primary Care Unavailable JOHANNA MAHAN Admitting Unavailable JOHANNA MAHAN Attending Unavailable JOHANNA MAHAN Consulting Unavailable ANKUR, DR ALEM Amado Consulting Unavailable RENALDO, ASHA Admitting Unavailable MELISSA ERAZO Primary Care Unavailable RENALDO ASHA Attending Unavailable RENALDO, ASHA Consulting Unavailable SAM ., RAFAEL Admitting Unavailable MELISSA ERAZO Primary Care Unavailable SAMSA ., RAFAEL Attending Unavailable ANKUR, DR ALEM Amado Consulting Unavailable SAMSA ., RAFAEL Consulting Unavailable SWEENEY ., DR ELVIA Alex Admitting Unavailable SWEENEY ., DR ELVIA Alex Attending Unavailable SWEENEY ., DR ELVIA Alex Consulting Unavailable SWEENEY ., DR ELVIA Alex Primary Care Unavailable [place]AM, DR EULALIA West Consulting Unavailable Renaldo BRIAN Asha Unavailable Melissa Erazo Primary Care Physician MEGAN MURPHY Attending Unavailable NAVDEEP TALLEY Attending Unavailable LUÍS WOOTEN Attending Unavailable LUÍS WOOTEN Attending Unavailable Edenilson Moyer Attending Unavailab Edenilson Caballero Admitting Unavailab Elvia Velasco Primary Care Unavailable Melissa Erazo Attending Unavailable Melissa Erazo Attending Unavailable Melissa Erazo Attending Unavailable Melissa Erazo Attending Unavailable Melissa Erazo Attending Unavailable Melissa Erazo Attending Unavailable Melissa Erazo Attending Unavailable Navdeep Valiente ASantos Admitting Unavailable MoNikhil martinamad A. Attending Unavailable Nikhil Valienteamad ASantos Referring Unavailable Melissa Erazo Admitting Unavailable Melissa Erazo Attending Unavailable Navdeep Valiente Attending Unavailable Navdeep Valiente ASantos Attending Unavailable Melissa Erazo Referring Unavailable Allergies Allergy Classification Reported Allergen(s) Allergy Type Date of Onset Reaction(s) Facility (20 sources) Dexamethasone; Translations: [dexamethasone] Drug Allergy 12-11-19 21 Unknown (qualifier value), GI Upset [facility] (8 sources) Penicillins; Translations: [Penicillins] Allergy to substance 02-12-20 13 Other: See Comments [facility] (5 sources) Penicillins (Antibiotic) Propensity to adverse reactions AFINOS Other (8 sources) Penicillin; Translations: [penicillin] Drug Allergy Unknown (qualifier value) [facility] (6 sources) predniSONE; Translations: [prednisone] Drug Allergy Unknown (qualifier value) [facility] (1 source) Acetaminophen / HYDROcodone; Translations: [HYDROCODONE-ACET AMINOPHEN] Drug Allergy 06-23-19 [facility] Repository (1 source) Lisinopril; Translations: [LISINOPRIL] Drug Allergy 05-15-20 [facility] Repository (1 source) Dexamethasone; Translations: [Decadron] Drug Allergy [facility] Repository Medications Current Medications Medication Drug Class(es) Dates Sig (Normalized) Sig (Original) 3 ML semaglutide 1.34 MG/ML Pen Injector [Ozempic] (4 sources) Start: 09-25-2023 inject 1 mg by subcutaneous injection every week Ozempic (1 mg dose) 4 mg/3 mL subcutaneous solution See Instructions, INJECT 1 MG SUBCUANEOUSLY WEEKLY, # 9 mL, Refills(s) 3, Pharmacy: [facility], 162, cm, 09/25/23 [...] 01, 2021 12:00am take 1 capsule by mo ut every twenty-four hours DULoxetine HCl 60 MG 1 capsule Orally Once a day Active take 1 capsule by mo uth every twenty-four hours DULoxetine HCl 30 MG [...] Daily, # 90 tab(s), Refills(s) 0, Pharmacy: [facility], 162, cm, 09/25/23 [...] Daily, # 90 tab(s), Refills(s) 0, Pharmacy: [facility], 162, cm, 09/25/23 13:12:00 EDT, Height/Length Dosing, 121.7, kg, 09/25/23 13:12:00 EDT, Weight Dosing Start Date: 09/25/23 Status: Ordered Start: 09-15-2021 take 1 tablet by bony th once daily losartan 25 mg Tab 25 mg = 1 tab(s), Oral, Daily, Refills(s) 0 Start Date: 09/01/22 Status: Ordered Losartan Potassi um Active metFORMIN hydrochloride 500 mg oral tablet (17 sources) Biguanide Start: 01-23-2023 take 1 tablet by mouth once daily metformin 500 mg Tab See Instructions, TAKE 1 TABLET BY MOUTH EVERY DAY, # 90 tab(s), Refills(s) 3, Pharmacy: [id number], 162, cm, 09/25/22 11:02:00 EDT, Height/Length Dosing, [...] Nurtec (3 sources) Nurtec Active Nurtec Damien-Olinda carey omeprazole 20 mg delayed release oral capsule [...] 15, 2021 1:43pm take 1 capsule by [facility] once daily Omeprazole 40 MG 1 capsule 30 minutes before morning meal Orally Once a day Active Ozempic (3 sources) Ozempic Active polyethylene glycol 3350 52068 mg powder for oral solution (3 sources) [...] mg, SubCutaneous, qWeek, 6 EA, Refill(s) 0, [facility]/pharmacy #[id number], 162, cm, 09/25/22 11:02:00 EDT, [...] capsule (4 sources) Non-narcotic Antitussive Start: 02-15-20 End: 02-20-20 take 1 capsule by mouth three times daily Benzonatate (Tessalon Perles) 100 mg capsule Discontinued 100 MG PO Three times daily 20 5 February 14, 2018 12:57pm February 19, 2018 [...] 2021 10:05am take 2 puff(s) by mo ut twice daily Symbicort 160-4.5 MCG/ACT INHALE 2 [...] Test Name Value Interpretation Reference Range Facil ity Patient Letter FTMCon 2023 Patient Letter [facility] Patient Letter [facility] December 24, 2023 JOVANA XIE [facility]ly [facility] [address] : 1970 Our office has been trying to reach you, when you receive this letter please give our office a call Family [address] [address] Normal [facility] 37on 12-14-2023 37 Increase Carvedilol to 25 mg twice a day Call office for any concerns- increased fatigue, shortness of breath, lightheadedness/diz ziness or any concerns Orders for sleep study, stress test and echcocardiogram Normal [facility] Office Visiton 12-14-2023 Follow-up visit [id number] Jovana Xie 1970 F Date Provider Department Center 12/14/2023 MEGAN GUO [facility] Family History Problem Relation Age of Onset Coronary artery disease Mother Other Mother Family Status - Relation Status Age at Mother Level of Service:04349 MD OFFICE/OUTPATIENT ESTABLISHED MOD MDM 30 MIN Normal [facility] Family Medicine Office/Clini c Noteon 12-13-2023 Family [...] CDC-Falls Prevention and home safety screening reviewed. [place] Advance Directives reviewed. Patient provided with education [...] follow up visits. Patient follows up with Merchandiser, last visit notes available in chart and [...] DM medica (more content not included)... Normal [facility] Comment on above: Result Comment: [...] Follow-Up Appointments 2023 2:00 PM EDT With: Melissa Erazo MD Where: [facility] Normal [address] [place] [address]- \.br\ Medications\.br\ What How Much When Instructions\.br\ [...] \.br\ Some fast-acting carbs are:\.br\ ? \.br [facility] Consultation Noteon 11-28-19 Consultation Note [id number] 1C#1.00TIFF Normal [facility] Ambulatory Visit Summaryon 0 11-27-2023 [...] Follow-Up Appointments Sunday 11:00 AM EDT Where: [facility] [place] Normal [facility] Family Medicine Office/Clini c Noteon 11-27-2023 [...] to the ER - Concerns discussed with [facility] that its when she coughs that [...] malignant neoplasm of female breast: Mother. Normal [facility] Comment on above: Result Comment: [...] oz glass (more content not included)... Normal [facility] RAD - CT Reporton 11-15-2023 RAD - CT Report [id number] F#1.00TIFF [facility] Ambulatory Visit Summaryon 0 11-14-2023 Ambulatory Visit [...] EDT With: Freeman AIKEN, Melissa Mary Where: [facility] [place] Normal [facility] Gastroenterology Office/Clin ic Noteon 11-14-2023 [...] 50 mg (more content not included)... Normal [facility] Comment on above: Result Comment: Elec tronically Signed By: Steffanie AIKEN, Navdeep Rodríguez\.br\Date and Time Signed: 11/14/23 12:56 EDT Consultation Noteon 11-01-19 Consultation Note [id number] 8#1.00TIFF Normal [facility] Family Medicine Office/Clini c Noteon [...] and down Yearly BMP: 09/25/23 questions/concerns: saw project design engineer and wearing a heart monitor. she was called yesterday by project design engineer [facility] and he put her on a [...] atrial fibrillation) - As above - Please pharmacy picking technician the elquis. 4. Colon polyp (K63.5: Polyp of colon) - Per Patient. - Following with GI. Orders: metoprolol, 25 mg = 1 tab(s), Oral, Daily, # 90 tab(s), Refills(s) 0, Pharmacy: [facility]/pharmacy #[id number], 162, cm, 10/30/23 9:51:00 EDT, [...] Primary malignant neoplasm of female breast: Mother. [facility] Comment on above: Result Comment: Elec tronically Signed By: Freeman AIKEN, Melissa Peterson.br\Date and Time Signed: 10/30/23 10:17 EDT IntraOperative Documentson 0 10-26-2023 IntraOperative Documents [id number]#1.00TIFF Normal [facility] Postoperative Documentson Postoperative Documents [id number] 0988#1.00TIFF Normal [facility] Consenton 10-23-2023 Consent [id number] 67#1.00TIFF Normal [facility] Discharge Instructionson Discharge Instructions [id number] 80#1.00TIFF Normal [facility] Main OR Intraoperative Recor don 10-23-2023 Main OR Intraoperative Record IntraOp Document Type FT Summary Primary Physician: Navdeep Valiente MD Finalized Date/Time: 10/23/23 11:51:00 Pt. Name: XIEJOVANA/Sex: 1970 Female Med Rec #: [id number] Physician: Navdeep Valiente MD Financial #: [id number] Pt. Type: O Room/Bed: / Admit/Disch: 10/22/23 [...] Attendee Kylee CEE, Pa Oliveira, Camille Clemons PERSONAL INVESTMENT ADVISER, Radha Abebe Role Performed Anesthesiologist Scrub - Primary Staff - Other [employer] Time In 10/22/23 10:23:00 10/22/23 10:23:00 10/22/23 [...] RN, Maki Role Performed Surgeon - Primary Electroencephalographic Technician - Primary Time In 10/22/23 10:23:00 10/22/23 [...] Micala E, Schafer CST, Steffanie Egan MD, Navdeep Rodríguez, Kannan SWAIN, Maki Time Out Complete 10/22/23 10:27:00 Outcomes Met? [...] and tissue Entry 1 Skin Integrity Intact, [place], Warm, and Skin Abnormality No Dry Outcomes Met? Yes Last Modified By: Maki Brunner RN 10/22/23 10:29:47 Post-Care Text: The patient is free from signs and symptoms of injury caused by extraneous objects Patient Positioning FT Pre-Care Text: Identifies physical alterations that require additional precautions for procedure-specific (more content not included)... Normal [facility] Consent for Treatmenton 10-03 Consent for Treatment [id number] 5A#1.00TIFF Normal [facility] Discharge Instructionson Discharge Instructions JOVANA XIE :1970 Visit Date:10/22/2023 Inpatient Discharge Instructions Your Care Team Admitting Physician - Navdeep Valiente MD. Referring Physician - Navdeep Valiente MD. Reason for Your Visit SCREENING, GERD Your [...] Appointments Sunday. 2023 9:45 AM EDT With: Melissa Erazo MD Where: [facility] Comment on above: Result Comment: Elec tronically Signed By: Daniel SWAIN, Lorri\.elijah\Date and Time Signed: 10/22/23 11:00 EDT Gurmeet [...] WEEKLY, # 9 mL, Refills(s) 3, Pharmacy: [facility], 162, cm, 09/25/23 13:12:00 EDT, Height/Length Dosing, 121.7, kg, 09/25/23 13:12:00 EDT, Weight Dosing hydrochlorothiazide 25 mg Tab: 25 mg = 1 tab(s), Oral, Daily, # 90 tab(s), Refills(s) 0, Pharmacy: [facility], 162, cm, 09/25/23 13:12:00 EDT, Height/Length Dosing, 121.7, kg, 09/25/23 13:12:00 EDT, Weight Dosing losartan 100 mg Tab: 100 mg = 1 tab(s), Oral, Daily, # 90 tab(s), Refills(s) 0, Pharmacy: [facility], 162, cm, 09/25/23 13:12:00 EDT, Height/Length Dosing, 121.7, kg, 09/25/23 13:12:00 EDT, Weight Dosing metformin 500 mg Tab: See Instructions, TAKE 1 TABLET BY MOUTH EVERY DAY, # 90 tab(s), Refills(s) 3, Pharmacy: [facility], 162, cm, 09/25/22 11:02:00 EDT, Height/Length Dosing, [...] pylori. 3. Normal duodenum. Images Procedure images: Rec_hd_video__[id number]. jpg Rec_hd_video__[id number]. jpg Rec_hd_video__[id number]. jpg Rec_hd_video__40_[id number]. jpg Rec_hd_video__40_[id number]. jpg Rec_hd_video__[id number]. jpg . Post-Procedure Complications: none. Estimated blood loss: minimal. Specimens: sent to pathology. Devices/ implants: none left in place. Impression and Plan gastropathy Nonobstructing Schatzki's ring Hiatal hernia Recommendations: -Resume previous diet -Resume home medications -Avoid NSAIDs -Await pathology results, follow in GI clinic in 1-2 after discharge [facility] Comment on above: Other Comment: Latha sim Attachment - attachment storage system not supported [id number] Can be viewed in source systemMissing Attachment - attachment storage system not supported [id number] Can be viewed in source systemMissing Attachment - attachment storage system not supported [id number] Can be viewed in source systemMissing Attachment - attachment storage system not supported [id number] Can be viewed in source systemMissing Attachment - attachment storage system not supported [id number] Can be viewed in source systemMissing Attachment - attachment storage system not supported [id number] Can be viewed in source system Colonoscopy Procedure Report Patient: JOVANA XIE Age: 53 years Sex: Female : 1970 Associated Diagnoses: None Author: Navdeep Valiente MD Pre-Procedure Procedure Date 10/22/2023 10:52:00 . Procedure Type: Colonoscopy with removal of tumor(s), polyp(s), or other lesion(s) by cold snare technique. Procedure provider Performed by Navdeep Valiente MD. Current history and physical Documented on chart. Cardiac catheter ([id number]) in 2005 at 36 Years. MANDI BSO - Total abdominal hysterectomy and bilateral salpingo-oophorecto my ([id number]) on 01/15/2004 at 33 Years. Tonsillectomy and adenoidectomy (241179421). Arthroscopy ([id number]). Comments: 09/01/2022 10:00 Daija Mendosa LPN left and right, separate times History of lumbar spine surgery ([id number]). Comments: 09/01/2022 10:01 Daija Mendosa LPN L4-L5 disc December 2015. Past Medical History No active or resolved past medical history items have been selected or recorded.. Family History Patient was adopted. Diabetes mellitus type 1 Father Primary malignant neoplasm of female breast Mother . Procedure History Cardiac catheter ([id number]) in 2006 at 36 Years. [facility] BSO - Total abdominal hysterectomy and bilateral salpingo-oophorecto my ([id number]) on 01/15/2004 at 33 Years. Tonsillectomy and adenoidectomy (977540302). Arthroscopy ([id number]). Comments: 09/01/2022 10:00 EDT - Daija Zuñiga LPN left and right, separate times History of lumbar spine surgery (6989852887). Comments: 09/01/2022 10:01 EDT Daija Beyer LPN L4-L5 disc December 2015. Colorectal neoplasm [...] WEEKLY, # 9 mL, Refills(s) 3, Pharmacy: [facility], 162, cm, 09/25/23 13:12:00 EDT, Height/Length Dosing, 121.7, kg, 09/25/23 13:12:00 EDT, Weight Dosing hydrochlorothiazide 25 mg Tab: 25 mg = 1 tab(s), Oral, Daily, # 90 tab(s), Refills(s) 0, Pharmacy: [facility], 162, cm, 09/25/23 13:12:00 EDT, Height/Length Dosing, 121.7, kg, 09/25/23 13:12:00 EDT, Weight Dosing losartan 100 mg Tab: 100 mg = 1 tab(s), Oral, Daily, # 90 tab(s), Refills(s) 0, Pharmacy: [facility], 162, cm, 09/25/23 13:12:00 EDT, Height/Length Dosing, 121.7, kg, 09/25/23 13:12:00 EDT, Weight Dosing metformin 500 mg Tab: See Instructions, TAKE 1 TABLET BY MOUTH EVERY DAY, # 90 tab(s), Refills(s) 3, Pharmacy: [facility], 162, cm, 09/25/22 11:02:00 EDT, Height/Length Dosing, [...] completely Images Procedure images: Rec_hd_video_2023_ _[id number]. jpg Rec_hd_video__[id number]. jpg Rec_hd_video_2023_ _[id number]. jpg Rec1_hd_video_2023_ _[id number]. jpg Rec1_hd_video__T09_[id number]. jpg Rec1_hd_video_2023_ _[id number]. jpg Rec1_hd_video_2023_ _[id number]. jpg Rec1_hd_video_20 (more content not included)... [facility] Comment on above: Other Comment: Latha sim Attachment - attachment storage system not supported [id number] Can be viewed in source systemMissing Attachment - attachment storage system not supported [id number] Can be viewed in source systemMissing Attachment - attachment storage system not supported [id number] Can be viewed in source systemMissing Attachment - attachment storage system not supported [id number] Can be viewed in source systemMissing Attachment - attachment storage system not supported [id number] Can be viewed in source systemMissing Attachment - attachment storage system not supported [id number] Can be viewed in source systemMissing Attachment - attachment storage system not supported [id number] Can be viewed in source systemMissing Attachment - attachment storage system not supported 8945386 Can be viewed in source system Esophagogastroduod enoscopy Patient: JOVANA XIE Age: 53 years Sex: Female : 1970 Associated Diagnoses: None Author: Navdeep Valiente MD Pre-Procedure Procedure Date 10/22/2023 10:52:00 . Procedure Type: Colonoscopy with removal of tumor(s), polyp(s), or other lesion(s) by cold snare technique. Procedure provider Performed by Navdeep Valiente MD. Current history and physical Documented on chart. Cardiac catheter ([id number]) in 2005 at 36 Years. [facility]I BSO - Total abdominal hysterectomy and bilateral salpingo-oophorecto my ([id number]) on 01/15/2004 at 33 Years. Tonsillectomy and adenoidectomy (448326026). Arthroscopy ([id number]). Comments: 09/01/2022 10:00 Daija Mendosa LPN left and right, separate times History of lumbar spine surgery (2515724739). Comments: 09/01/2022 10:01 Daija Mendosa LPN L4-L5 disc December 2015. Past Medical History No active or resolved past medical history items have been selected or recorded.. Family History Patient was adopted. Diabetes mellitus type 1 Father Primary malignant neoplasm of female breast Mother . Procedure History Cardiac catheter ([id number]) in 2005 at 36 Years. MANDI BSO - Total abdominal hysterectomy and bilateral salpingo-oophorecto my ([id number]) on 01/15/2004 at 33 Years. Tonsillectomy and adenoidectomy (157009077). Arthroscopy ([id number]). Comments: 09/01/2022 10:00 Daija Mendosa LPN left and right, separate times History of lumbar spine surgery ([id number]). Comments: 09/01/2022 10:01 Daija Mendosa LPN L4-L5 [...] WEEKLY, # 9 mL, Refills(s) 3, Pharmacy: [facility], 162, cm, 09/25/23 13:12:00 EDT, Height/Length Dosing, 121.7, kg, 09/25/23 13:12:00 EDT, Weight Dosing hydrochlorothiazide 25 mg Tab: 25 mg = 1 tab(s), Oral, Daily, # 90 tab(s), Refills(s) 0, Pharmacy: [facility], 162, cm, 09/25/23 13:12:00 EDT, Height/Length Dosing, 121.7, kg, 09/25/23 13:12:00 EDT, Weight Dosing losartan 100 mg Tab: 100 mg = 1 tab(s), Oral, Daily, # 90 tab(s), Refills(s) 0, Pharmacy: [facility], 162, cm, 09/25/23 13:12:00 EDT, Height/Length Dosing, 121.7, kg, 09/25/23 13:12:00 EDT, Weight Dosing metformin 500 mg Tab: See Instructions, TAKE 1 TABLET BY MOUTH EVERY DAY, # 90 tab(s), Refills(s) 3, Pharmacy: [facility] [address], 162, cm, 09/25/22 11:02:00 EDT, Height/Length Dosing, [...] jpg Rec1_hd_video_2023_ _[id number]. jpg Rec1_hd_video_2023_ _[id number]. jpg Rec1_hd_video__T09_53_17_111. jpg Rec1_hd_video_20 (more content not included)... [facility] Comment on above: Other Comment: Latha sim Attachment - attachment storage system not supported [id number] Can be viewed in source systemMissing Attachment - attachment storage system not supported [id number] Can be viewed in source systemMissing Attachment - attachment storage system not supported 3035962 Can be viewed in source systemMissing Attachment - attachment storage system not supported [id number] Can be viewed in source systemMissing Attachment - attachment storage system not supported 4535908 Can be viewed in source systemMissing Attachment - attachment storage system not supported 8113448 Can be viewed in [facility] Attachment - attachment storage system not supported [id number] Can be viewed in source systemMissing Attachment - attachment storage system not supported [id number] Can be viewed in source system Main OR PACU I Recordon 05 Main OR PACU I Record PACU Phase I Document Type FT Summary Primary Physician: Navdeep Valiente MD Finalized Date/Time: 10/22/23 12:06:11 Pt. Name: JOVANA XIE /Sex: 1970 Female Med Rec #: [id number] Physician: aNvdeep Valiente MD Financial #: [id number] Pt. Type: O Room/Bed: / Admit/Disch: 10/22/23 [...] By: Lorri Sanchez RN 10/22/23 12:06 Normal [facility] Main OR Preoperative Recordo n 10-22-2023 Main OR Preoperative Record Holding Area Document Type FT Summary Primary Physician: Navdeep Valiente MD Finalized Date/Time: 10/22/23 09:34:35 Pt. Name: ANNE-MARIEJOVANA/Sex: 1970 Female Med Rec #: [id number] Physician: Navdeep Valiente MD Financial #: [id number] Pt. Type: O Room/Bed: / Admit/Disch: 10/22/23 [...] completed prep at 0500 and remained NPO since/TANYA,RN Finalized By: Fely Leon RN Document Signatures Signed By: Fely Leon RN 10/22/23 09:34 Normal [facility] Monitor Recordon 10-22-2023 Monitor Record [id number] 751#1.00TIFF Normal [facility] Monitor Record [id number] 432#1.00TIFF Normal [facility] Patient Education - Texton 0 [...] unsweetened, w/added ascorbic acid 1 cup 0.5 [place] 1 cup 0.7 Vegetables Cooked Green beans 1 cup 4.0 Carrots 1/2 cup sliced 2.3 Peas 1 cup 8.8 Potato (baked, with skin) 1 medium potato 3.8 Raw [place] (with peel) 1 cucumber 1.5 Lettuce 1 [...] 8.7 Peanuts 1/2 cup 7.9 Chart from [facility] 2013. SEEK IMMEDIATE MEDICAL CARE IF: You [...] Nutrient Database for Standard Reference. Available at http://www.[employer].usda .gov/fnic/foodcomp/ search/. Information adapted from: [employer]ky? Patient Information ?2009 [employer]. [employer] 2012 http://www.[employer]/contents/diver zauergi-ciekebw-stv axh-koe-slurye Colonoscopy Care After Surgery Please read the [...] and progress (more content not included)... Normal [facility] Progress Note-Physicianon Progress Note-Physician Patient: [...] WEEKLY, # 9 mL, Refills(s) 3, Pharmacy: [facility] #[facility], 162, cm, 09/25/23 13:12:00 EDT, Height/Length Dosing, 121.7, kg, 09/25/23 13:12:00 EDT, Weight Dosing hydrochlorothiazide 25 mg Tab: 25 mg = 1 tab(s), Oral, Daily, # 90 tab(s), Refills(s) 0, Pharmacy: [facility] #142, 162, cm, 09/25/23 13:12:00 EDT, Height/Length Dosing, 121.7, kg, 09/25/23 13:12:00 EDT, Weight Dosing losartan 100 mg Tab: 100 mg = 1 tab(s), Oral, Daily, # 90 tab(s), Refills(s) 0, Pharmacy: [facility] #142, 162, cm, 09/25/23 13:12:00 EDT, Height/Length Dosing, 121.7, kg, 09/25/23 13:12:00 EDT, Weight Dosing metformin 500 mg Tab: See Instructions, TAKE 1 TABLET BY MOUTH EVERY DAY, # 90 tab(s), Refills(s) 3, Pharmacy: [facility] [address], 162, cm, 09/25/22 11:02:00 EDT, Height/Length Dosing, [...] list: All Problems Asthma / SNOMED CT 003487935 / Confirmed Body mass index (BMI) of 45.0-49.9 in adult / SNOMED CT 9271877372 / Confirmed Chronic GERD / SNOMED CT 135596216 / Confirmed Colon cancer screening / SNOMED CT 114048190 / Confirmed Constipation, outlet dysfunction / SNOMED CT 53957202 / Confirmed Controlled type 2 diabetes mellitus without complication, without long-term current use of insulin / SNOMED CT 731679601 / Confirmed Derangement of knee / SNOMED CT 618688765 / Confirmed Diabetes mellitus type II, controlled / SNOMED CT 167842562 / Confirmed Extrinsic asthma with status asthmaticus / SNOMED CT 8058389077 / Confirmed Headache / SNOMED CT 03126828 / Confirmed Hemorrhoids / SNOMED CT 261490654 / Confirmed HTN (hypertension) / SNOMED CT 0807614822 / Confirmed Metabolic syndrome X / SNOMED CT 787012744 / Confirmed Morbid obesity / SNOMED CT 603976821 / Confirmed Osteoarthritis / SNOMED CT 9667853608 / Confirmed idiopathic Pain in thumb joint with movement of right hand / SNOMED CT 590615457 / Confirmed Pelvic floor dysfunction / SNOMED CT 4963673198 / Confirmed Psoriasis / SNOMED CT 63858419 / Confirmed Raynaud's phenomenon without gangrene / SNOMED CT 512748867 / Confirmed Raynauds phenomenon / SNOMED CT 610427729 / Confirmed isolated, primary S/P cholecystectomy / SNOMED CT 7988823723 / Confirmed S/P hysterectomy / SNOMED CT 418970598 / Confirmed Sciatica / SNOMED CT 41918390 / Confirmed Smoker / SNOMED CT 056644025 / Confirmed Steatosis of liver / SNOMED CT 331301618 / Confirmed 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 Normal [facility] Comment on above: Result Comment: [...] WEEKLY, # 9 mL, Refills(s) 3, Pharmacy: [facility], 162, cm, 09/25/23 13:12:00 EDT, Height/Length Dosing, 121.7, kg, 09/25/23 13:12:00 EDT, Weight Dosing hydrochlorothiazide 25 mg Tab: 25 mg = 1 tab(s), Oral, Daily, # 90 tab(s), Refills(s) 0, Pharmacy: [facility] #[facility], 162, cm, 09/25/23 13:12:00 EDT, Height/Length Dosing, 121.7, kg, 09/25/23 13:12:00 EDT, Weight Dosing losartan 100 mg Tab: 100 mg = 1 tab(s), Oral, Daily, # 90 tab(s), Refills(s) 0, Pharmacy: [facility], 162, cm, 09/25/23 13:12:00 EDT, Height/Length Dosing, 121.7, kg, 09/25/23 13:12:00 EDT, Weight Dosing metformin 500 mg Tab: See Instructions, TAKE 1 TABLET BY MOUTH EVERY DAY, # 90 tab(s), Refills(s) 3, Pharmacy: [facility] [address], 162, cm, 09/25/22 11:02:00 EDT, Height/Length Dosing, 138.5, kg, 09/25/22 11:02:00 EDT, Weight Dosing Documented Medications Documented [facility] ODT 75 mg oral tablet, disintegratin mg [...] list: All Problems Asthma / SNOMED CT 887250589 / Confirmed Body mass index (BMI) of 45.0-49.9 in adult / SNOMED CT 6613013358 / Confirmed Chronic GERD / SNOMED CT 219750660 / Confirmed Colon cancer screening / SNOMED CT 677151614 / Confirmed Constipation, outlet dysfunction / SNOMED CT 13816959 / Confirmed Controlled type 2 diabetes mellitus without complication, without long-term current use of insulin / SNOMED CT 482391873 / Confirmed Derangement of knee / SNOMED CT 713435371 / Confirmed Diabetes mellitus type II, controlled / SNOMED CT 418235103 / Confirmed Extrinsic asthma with status asthmaticus / SNOMED CT 5501637234 / Confirmed Headache / SNOMED CT 11380344 / Confirmed Hemorrhoids / SNOMED CT 652281131 / Confirmed HTN (hypertension) / SNOMED CT 2482519160 / Confirmed Metabolic syndrome X / SNOMED CT 231131102 / Confirmed Morbid obesity / SNOMED CT 936703293 / Confirmed Osteoarthritis / SNOMED CT 4390854098 / Confirmed idiopathic Pain in thumb joint with movement of right hand / SNOMED CT 753852027 / Confirmed Pelvic floor dysfunction / SNOMED CT 1200862559 / Confirmed Psoriasis / SNOMED CT 39315702 / Confirmed Raynaud's phenomenon without gangrene / SNOMED CT 308102404 / Confirmed Raynauds phenomenon / SNOMED CT 107587971 / Confirmed isolated, primary S/P cholecystectomy / SNOMED CT 3016968123 / Confirmed S/P hysterectomy / SNOMED CT 743142282 / Confirmed Sciatica / SNOMED CT 27718829 / Confirmed Smoker / SNOMED CT 764676528 / Confirmed Steatosis of liver / SNOMED CT 111979703 / Confirmed Ulnar neuropathy / SNOMED CT 719990684 / Confirmed left arm Vitamin D3 deficiency / SNOMED CT 7955901543 / Confirmed Canceled: Fatigue / IMO 09066 Canceled: Folliculitis / IMO 43 Canceled: GERD with apnea / SNOMED CT 2076736561, Active Problems (27) Asthma Body mass index (BMI) of 45.0-49.9 in adult Chronic GERD Col (more content not included)... Normal [facility] Comment on above: Result Comment: Elec tronically Signed By: Campbell Santiago DO\.br\Date and Time Signed: 10/22/23 09:59 EDT Consent for Procedure/Surger yon 10-19-2023 Consent for Procedure/Surgery [id number] Normal [facility] Office Visiton 10-19-2023 Follow-up visit [id number] Jovana Xie 1970 F Date Provider Department Center 10/19/2023 3848-NAVDEEP TALLEY TENZIN Arboleda Family History Problem Relation Age of Onset Coronary artery disease Mother Other Mother Family Status - Relation Status Age at Mother Level of Service:85920 MD OFFICE/OUTPATIENT ESTABLISHED MOD MDM 30 MIN Normal [facility] Ambulatory Visit Summaryon 0 10-18-2023 Ambulatory Visit Summary JOVANA XIE :1970 Visit Date:10/18/2023 Ambulatory Visit Instructions Your Diagnosis Screen for colon cancer Morbid obesity Chronic GERD Constipation, outlet dysfunction Pelvic floor dysfunction S/P cholecystectomy S/P hysterectomy Apnea, not elsewhere classified Your Care Team Attending Physician - Steffanie AIKEN, Navdeep Rodríguez Primary Care Physician - Melissa Erazo MD [...] EDT With: Freeman AIKEN, Melissa Mary Where: [facility] [place] Normal [facility] Gastroenterology Office/Clin ic Noteon 10-18-2023 [...] why taking: Cardiac history? 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 Normal [facility] Comment on above: Result Comment: [...] AM EDT With: Melissa Erazo MD Where: [facility] [place] Normal [facility] CBC w/ Auto Diffon 4 Basophils/100 WBC (Bld) 0.3 % Normal 0.0-2.0 [facility] Comment on above: Performed By: #### 2 657211, 829880713, 2200992, 31550304 ####[facility] [address] [place] [address] Basophils/Leukocyt es Auto (Bld) [Pure # fraction] 0.0 E9/L Normal 0.0-0.2 [facility] Comment on above: Performed By: #### 2 434888, 567010880, 8320909, 59289360 ####[address] [address] Eosinophils (Bld) [#/Vol] 0.5 E9/L Normal 0.0-0.5 [facility] Comment on above: Performed By: #### 2 686193, 783478381, 3830297, 01059238 ####[address] [address] Eosinophils/100 WBC (Bld) 4.4 % Normal 0.0-8.0 [facility] Comment on above: Performed By: #### 2 503185, 444045382, 4562184, 96776442 ####[address] [address] Erythrocyte distribution width (RBC) [Ratio] 15.2 % High 10.9-14.2 [facility] Comment on above: Performed By: #### 2 442714, 593396759, 8235980, 54399246 ####[address] [address] Hematocrit (Bld) [Volume fraction] 38.6 % Normal 34.0-46.0 [facility] Comment on above: Performed By: #### 2 620144, 540266293, 0997007, 47800120 ####[address] [address] Hemoglobin (Bld) [Mass/Vol] 12.7 g/dL Normal 12.0-16.0 [facility] Comment on above: Performed By: #### 2 782356, 524525042, 5563263, 98394069 ####[address] [address] Lymphocytes (Bld) [#/Vol] 2.5 E9/L Normal 1.0-4.0 [facility] Comment on above: Performed By: #### 2 325969, 146932938, 6326943, 85278294 ####[address] [address] Lymphocytes/100 WBC (Bld) 23.7 % Normal 14.0-50.0 [facility] Comment on above: Performed By: #### 2 360571, 839392154, 8881453, 83837248 ####[address] [address] MCH (RBC) [Entitic mass] 29.0 pg Normal 27.0-34.0 [facility] Comment on above: Performed By: #### 2 935089, 989663307, 6727386, 21002175 ####[address] [address] MCHC (RBC) [Mass/Vol] 33.0 g/dL Normal 31.4-36.0 [facility] Comment on above: Performed By: #### 2 341395, 517832593, 1621543, 23509924 ####[address] [address] MCV (RBC) [Entitic vol] 88.1 fL Normal 80.0-100.0 [facility] Comment on above: Performed By: #### 2 868871, 650040309, 9096503, 69269694 ####[address] [address] Monocytes (Bld) [#/Vol] 0.6 E9/L Normal 0.2-1.0 [facility] Comment on above: Performed By: #### 2 128278, 187325941, 6992393, 67138319 ####[address] [address] Neutrophils (Bld) [#/Vol] 7.0 E9/L Normal 2.0-7.5 [facility] Comment on above: Performed By: #### 2 597315, 506009449, 5077661, 01538767 ####[address] [address] Neutrophils/100 WBC (Bld) 65.8 % Normal 36.0-75.0 [facility] Comment on above: Performed By: #### 2 024561, 281161777, 0454246, 01741309 ####[facility] [address] [place] [address] Platelet 344.0 E9/L Normal 150.0-500.0 [facility] Comment on above: Performed By: #### 2 851106, 473600240, 0300262, 26552807 ####[address] [place] [address] Platelet mean volume (Bld) [Entitic vol] 8.9 fL Normal 6.4-10.8 [facility] Comment on above: Performed By: #### 2 989152, 566048159, 3199095, 06057331 ####[address] [place] [address] RBC (Bld) [#/Vol] 4.4 E12/L Normal 4.3-5.9 [facility] Comment on above: Performed By: #### 2 399664, 369782717, 4060938, 22585540 ####[address] [place] [address] WBC corrected for nucl RBC Auto (Bld) [#/Vol] 10.6 E9/L Normal 4.0-11.0 [facility] Comment on above: Performed By: #### 2 647870, 330981590, 8350190, 93872248 ####[address] [address] CHEMISTRYOrdered By: SYSTEM SYSTEM on 09-25-2023 Albumin [...] (Bld) [Mass fraction] 5.2 % Normal <=5.9% [facility] ChemAutoSS CMPon 09-25-2023 Albumin [Mass/Vol] 3.5 g/dL Normal 3.3-5.0 [facility] Comment on above: Performed By: #### 2 391269, 809537832, 3420752, 21176794 ####[facility] [address] [place] [address] Albumin/Globulin (S) [Mass conc ratio] 1.2 Normal 1.1-2.2 [facility] Comment on above: Performed By: #### 2 936680, 006421186, 4786937, 06676849 ####[facility] [address] [place] [address] ALP [Catalytic activity/Vol] 99 Int._Unit/L High 21-98 [facility] Comment on above: Performed By: #### 2 888425, 305036594, 2467152, 33242801 ####[facility] [address] [place] [address] ALT No additional P-5'-P [Catalytic activity/Vol] 30 Int._Unit/L Normal 6-46 [facility] Comment on above: Performed By: #### 2 744927, 631419907, 1250655, 00382416 ####[facility] [address] [place] [address] Anion gap [Moles/Vol] 11 mmol/L Normal 6-16 [facility] Comment on above: Performed By: #### 2 221593, 237102002, 8757013, 90628825 ####[facility] [address] [place] [address] AST [Catalytic activity/Vol] 20 Int._Unit/L Normal 5-43 [facility] Comment on above: Performed By: #### 2 921173, 975123098, 8415297, 63387123 ####[facility] [address] [place] [address] Bilirubin [Mass/Vol] 0.5 mg/dL Normal 0.0-1.1 [facility] Comment on above: Performed By: #### 2 342373, 836448907, 3092425, 55000733 ####[facility] [address] [place] [address] Calcium [Mass/Vol] 9.4 mg/dL Normal 8.9-11.1 [facility] Comment on above: Performed By: #### 2 159819, 720100468, 6801231, 07310362 ####[facility] [address] [place] [address] Chloride [Moles/Vol] 104 mmol/L Normal 101-111 [facility] Comment on above: Performed By: #### 2 286828, 049531791, 6699744, 74164335 ####[facility] [address] [place] [address] CO2 [Moles/Vol] 26 mmol/L Normal 21-31 [facility] Comment on above: Performed By: #### 2 474402, 318295986, 1782989, 81428940 ####[facility] [address] [place] [address] Creatinine [Mass/Vol] 0.8 mg/dL Normal 0.5-1.3 [facility] Comment on above: Performed By: #### 2 913919, 678805146, 2340235, 42087588 ####[facility] [address] [place] [address] Globulin (S) [Mass/Vol] 3.0 g/dL Normal 1.4-4.0 [facility] Comment on above: Performed By: #### 2 953454, 605032839, 4984754, 05197227 ####[facility] [address] [place] [address] Glucose [Mass/Vol] 113 mg/dL Normal 55-199 [facility] Comment on above: Performed By: #### 2 938196, 336204208, 7551520, 66143055 ####[facility] [address] [place] [address] Potassium [Moles/Vol] 4.3 mmol/L Normal 3.5-5.3 [facility] Comment on above: Performed By: #### 2 081713, 417647065, 6010822, 19101889 ####[facility] [address] [place] [address] Protein [Mass/Vol] 6.5 g/dL Normal 6.0-7.8 [facility] Comment on above: Performed By: #### 2 809632, 659455629, 8927354, 23204335 ####[facility] [address] [place] [address] Sodium [Moles/Vol] 137 mmol/L Normal 135-145 [facility] Comment on above: Performed By: #### 2 273828, 431722264, 4489826, 99256894 ####[facility] [address] [place] [address] Urea nitrogen [Mass/Vol] 20 mg/dL Normal 5-21 [facility] Comment on above: Performed By: #### 2 567411, 845570061, 0918304, 15071644 ####[facility] [address] [place] [address] Urea nitrogen/Creatinin e [Mass ratio] 25 No Units High 10-20 [facility] Comment on above: Performed By: #### 2 022417, 364770141, 8495958, 98251930 ####[facility] [address] [place] [address] Family Medicine Office/Clini c Noteon 09-25-2023 Family [...] Daily, # 90 tab(s), Refills(s) 0, Pharmacy: [facility] #142, 162, cm, 09/25/23 13:12:00 EDT, Height/Length Dosing, 121.7, kg, 09/25/23 13:12:00 EDT, Weight Dosing CBC w/ Auto Diff Comprehensive Metabolic Panel [facility] Internal Ambulatory Referral HgbA1c Microalbumin Level Urine 2. Morbid obesity (E66.01: Morbid (severe) obesity due to excess calories) - Diet and exercise advised Ordered: hydrochlorothiazide , 25 mg = 1 tab(s), Oral, Daily, # 90 tab(s), Refills(s) 0, Pharmacy: [facility] #[facility], 162, cm, 09/25/23 13:12:00 EDT, Height/Length Dosing, 121.7, kg, 09/25/23 13:12:00 EDT, Weight Dosing CBC w/ Auto Diff Comprehensive Metabolic Panel [facility] Internal Ambulatory Referral HgbA1c Microalbumin Level Urine 3. HTN (hypertension) (I10: Essential (primary) hypertension) - Will increase the losartan and add HCTZ. - Follow up in 1 month Ordered: hydrochlorothiazide , 25 mg = 1 tab(s), Oral, Daily, # 90 tab(s), Refills(s) 0, Pharmacy: [facility], 162, cm, 09/25/23 13:12:00 EDT, Height/Length Dosing, 121.7, kg, 09/25/23 13:12:00 EDT, Weight Dosing CBC w/ Auto Diff Comprehensive Metabolic Panel [facility] Internal Ambulatory Referral HgbA1c Microalbumin Level Urine 4. Colon cancer screening (Z12.11: Encounter for screening for malignant neoplasm of colon) - Will send for colonoscopy Ordered: hydrochlorothiazide , 25 mg = 1 tab(s), Oral, Daily, # 90 tab(s), Refills(s) 0, Pharmacy: [facility], 162, cm, 09/25/23 13:12:00 EDT, Height/Length Dosing, 121.7, kg, 09/25/23 13:12:00 EDT, Weight Dosing CBC w/ Auto Diff Comprehensive Metabolic Panel [facility] Internal Ambulatory Referral HgbA1c Microalbumin Level Urine 5. Derangement of knee (M23.90: Unspecified internal derangement of unspecified knee) - Use of cane PRN. - Follow up next month Ordered: hydrochlorothiazide , 25 mg = 1 tab(s), Oral, Daily, # 90 tab(s), Refills(s) 0, Pharmacy: [facility], 162, cm, 09/25/23 13:12:00 EDT, Height/Length Dosing, 121.7, kg, 09/25/23 13:12:00 EDT, Weight Dosing CBC w/ Auto Diff Comprehensive Metabolic Panel [facility] Internal Ambulatory Referral HgbA1c Microalbumin Level Urine 6. Body mass index (BMI) of 45.0-49.9 in adult (Z68.42: Body mass index [BMI] 45.0-49.9, adult) - BMI education discussed. - Diet and exercise advised. Ordered: hydrochlorothiazide , 25 mg = 1 tab(s), Oral, Daily, # 90 tab(s), Refills(s) 0, Pharmacy: [facility], 162, cm, 09/25/23 13:12:00 EDT, Height/Length Dosing, 121.7, kg, 09/25/23 13:12:00 EDT, Weight Dosing Orders: losartan, 100 mg = 1 tab(s), Oral, Daily, # 90 tab(s), Refills(s) 0, Pharmacy: [facility], 162, cm, 09/25/23 13:12:00 EDT, Height/Length Dosing, 121.7, kg, 09/25/23 13:12:00 EDT, Weight Dosing semaglutide, See Instructions, INJECT 1 MG SUBCUANEOUSLY WEEKLY, # 9 mL, Refills(s) 3, Pharmacy: [facility], 162, cm, 09/25/23 [...] with st (more content not included)... Normal [facility] Comment on above: Result Comment: Elec tronically Signed By: Freeman AIKEN, Melissa Mary\.br\Date and Time Signed: 09/25/23 13:42 EDT HEMATOLOGYOrdered [...] Normal 4.0 - 11.0 E9/L Remisol Heme RufF1fly 09-25-2023 HbA1c (Bld) [Mass fraction] 5.2 % Normal <=5.9 [facility] Comment on above: Performed By: #### 2 112904, 548455179, 2923095, 49999419 ####[facility] [address] [place] [address] Patient Educationon 09-25-19 24 Patient Education Nutrition [...] numbers. This can be done either in [place] or metric measurements. Note that charts and online BMI calculators are available to help you find your BMI quickly and easily without having to do these calculations yourself. To calculate your BMI in [place] measurements: 1. Measure your weight in [...] for Disease Control and Prevention: www.cdc.gov ? [place] Heart [employer]: www.heart.org ? National Heart, Lung, and Blood Victor: www.nhlbi.nih.gov Summary ? Body mass index (BMI) is a number that is calculated from a person's weight and height. ? BMI may help estimate how much of a person's weight is composed of fat. BMI can help identify those who may be at higher risk for certain medical problems. ? BMI can be measured using [place] measurements or metric measurements. ? BMI charts are used to identify whether you are underweight, normal weight, overweight, or obese. This information is not intended to replace advice given to you by your health care provider. Make sure you discuss any questions you have with your health care provider. Document Revised: 02/11/2020 Document Reviewed: 12/19/2019 [employer] Patient Education ? 2022 [employer] Normal [facility] U Microalbon 09-25-2023 Albumin DL <= 20 mg/L (U) [Mass/Vol] 0.7 mg/dL Normal 0.0-1.9 [facility] Comment on above: Performed By: #### 1 8285091 ####[facility] [address] [place] [address] eGFRon 09-25-2023 eGFR 88 mL/min/1.73 m2 Normal >=59 [facility] Comment on above: Order Comment: Order added by Discern Expert. Performed By: #### 2 807934, 226009781, 5525073, 86320203 ####[facility] [address] [place] [address] Pre-Certification Formon Pre-Certification Form [id number]#1.00TIFF Normal [facility] Consultation Noteon 06-05-19 Consultation Note [id number] BF#1.00TIFF Normal [facility] Office Visiton 02-16-2023 Follow-up visit [id number] Jovana Xie Shirlene 1970 Date Provider Department Center 02/16/202391815-BTBEUWPFZLUÍS DAVIDSON Family History Problem Relation Age of Onset Coronary artery disease Mother Other Mother Family Status - Relation Status Age at Mother Level of Service:87652 MD OFFICE/OUTPATIENT ESTABLISHED MOD MDM 30-39 MIN Normal [facility] Office Visiton 12-20-2022 Follow-up visit [id number] Odilia Xieshirlene Garber 1970 Date Provider Department Center 12/20/2022 LUÍS ANDREWS Family History Problem Relation Age of Onset Coronary artery disease Mother Other Mother Family Status - Relation Status Age at Mother Level of Service:08844 MD OFFICE/OUTPATIENT ESTABLISHED MOD MDM 30-39 MIN Reason for Visit and Comments: Follow-up [422672] - 1 month follow up Normal [facility] CT LUNG CANCER SCREENINGon 0 10-27-2022 CT [...] by: ALEM PASCUAL Date: 2022-10-27 09:10 Normal [facility] HEMOGLOBINon 10-27-2022 Hemoglobin (Bld) [Mass/Vol] 14.8 g/dL Normal 12.0-16.0 [facility] Comment on above: Performed By: #### H GB #### [facility] [address] [place] [address] Dr. Eron Spencer XR hand BI 3Von 10-11-2022 XR hand BI 3V [facility] [employer] Other XR hand BI 3V [facility] [employer] Other XR hand BI 3V [address] [place] [address] [employer] Other XR hand BI 3V [address] [employer] Other XR hand BI 3V XRay Report [facility] [employer] Other XR hand BI 3V Signed [facility] [employer] Other XR hand BI 3V Patient: Jovana Xie MR#: [id number] [facility] [employer] Other XR hand BI 3V 585 [facility] [employer] Other XR hand BI 3V : 1970 Acct:[id number] [facility] [employer] Other XR hand BI 3V Age/Sex: 52 / F ADM Date: 10/11/22 [facility] [employer] Other XR hand BI 3V Loc: [facility] Room: Type: [facility] CLI [employer] Other XR hand BI 3V Attending Dr: Charu Pham MD [employer] Other XR hand BI 3V Copies to: Charu Pham MD [employer] Other XR hand BI 3V Ordering Provider: Charu Pham MD [employer] Other XR hand BI 3V Date of Service: 10/11/22 [employer] Other XR hand BI 3V XR/XR hand BI 3V: Right hand pain [employer] Other XR hand BI 3V BILATERAL HANDS - 4 views each [employer] Other XR hand BI 3V COMPARISON: None [employer] Other XR hand BI 3V CLINICAL DATA: Bilateral hand pain, greatest at the right first carpometacarpal joint. Numbness at [employer] Other XR hand BI 3V the left third through fifth fingers. [employer] Other XR hand BI 3V AP, lateral, oblique and supplemental AP views of the thumbs were obtained. There are no acute [employer] Other XR hand BI 3V fractures or dislocation. No disproportionate joint space narrowing or prominent hypertrophy is [employer] Other XR hand BI 3V seen. There are no focal soft tissue abnormalities. [employer] Other XR hand BI 3V XR/XR hand BI 3V [employer] Other XR hand BI 3V IMPRESSION: [employer] Other XR hand BI 3V NO ACUTE BONY FINDINGS. [employer] Other XR hand BI 3V Impression dictated by: Daina Downs M.D.10/11/2022 2:43 PM [employer] Other XR hand BI 3V Dictation Location: [facility]-10 [employer] Other XR hand BI 3V Transcribed By: PWS 10/11/22 1443 [employer] Other XR hand BI 3V Dictated By: Daina Downs MD 10/11/22 1442 [employer] Other XR hand BI 3V Signed By: [employer] Other XR hand BI 3V 10/11/22 1443 [employer] [facility] [employer] Other XR cerv spine AP/LAT/FLX/EXT on 06-21-2022 XR cerv spine AP/LAT/FLX/EXT [facility] [employer] Other XR cerv spine AP/LAT/FLX/EXT [facility] [employer] Other XR cerv spine AP/LAT/FLX/EXT [address] [facility] [employer] Other XR cerv spine AP/LAT/FLX/[place] [address] [employer] Other XR cerv spine AP/LAT/FLX/EXT XRay Report [employer] Other XR cerv spine AP/LAT/FLX/EXT Signed [employer] Other XR cerv spine AP/LAT/FLX/EXT Patient: Jovana Xie MR#: [id number] [employer] Other XR cerv spine AP/LAT/FLX/EXT 585 [employer] Other XR cerv spine AP/LAT/FLX/EXT : 1970 Acct:[id number] [employer] Other XR cerv spine AP/LAT/FLX/EXT Age/Sex: 52 / F ADM Date: 06/21/22 [employer] Other XR cerv spine AP/LAT/FLX/EXT Loc: [facility] Room: Type: [facility] [employer] Other XR cerv spine AP/LAT/FLX/EXT Attending Dr: Charu Pham MD [employer] Other XR cerv spine AP/LAT/FLX/EXT Copies to: Charu Pham MD [employer] Other XR cerv spine AP/LAT/FLX/EXT Ordering Provider: Charu Pham MD [employer] Other XR cerv spine AP/LAT/FLX/EXT Date of Service: 06/21/22 [employer] Other XR cerv spine AP/LAT/FLX/EXT XR/XR cerv spine AP/LAT/FLX/EXT: Numbness of left hand [employer] Other XR cerv spine AP/LAT/FLX/EXT AP with lateral neutral, flexion extension views of the cervical spine [employer] Other XR cerv spine AP/LAT/FLX/EXT HISTORY: Cervical spine pain. Numbness and tingling of the arms [employer] Other XR cerv spine AP/LAT/FLX/EXT COMPARISON: None [employer] Other XR cerv spine AP/LAT/FLX/EXT Cervical lordosis is adequate. [employer] Other XR cerv spine AP/LAT/FLX/EXT No acute cervical spine fracture identified. [employer] Other XR cerv spine AP/LAT/FLX/EXT No cervical spine listhesis identified. [employer] Other XR cerv spine AP/LAT/FLX/EXT Disc spaces are adequate. [employer] Other XR cerv spine AP/LAT/FLX/EXT Facets are in adequate alignment. [employer] Other XR cerv spine AP/LAT/FLX/EXT No hypermobility with flexion and extension views. [employer] Other XR cerv spine AP/LAT/FLX/EXT The dens is intact. [employer] Other XR cerv spine AP/LAT/FLX/EXT The craniocervical junction is unremarkable. [employer] Other XR cerv spine AP/LAT/FLX/EXT No paraspinal soft tissue abnormality seen. Benign posterior soft tissue calcification at C7 level. [employer] Other XR cerv spine AP/LAT/FLX/EXT XR/XR cerv spine AP/LAT/FLX/EXT [employer] Other XR cerv spine AP/LAT/FLX/EXT IMPRESSION: No hypermobility. No acute cervical spine fracture. [employer] Other XR cerv spine AP/LAT/FLX/EXT Impression dictated by: Devin Norwood M.D.06/21/2022 3:15 PM [employer] Other XR cerv spine AP/LAT/FLX/EXT Dictation Location: [place] [address] [employer] Other XR cerv spine AP/LAT/FLX/EXT Transcribed By: PWS 06/21/22 [facility] [employer] Other XR cerv spine AP/LAT/FLX/EXT Dictated By: Devin Norwood DO 06/21/22 [facility] [employer] Other XR cerv spine AP/LAT/FLX/EXT Signed By: [employer] Other XR cerv spine AP/LAT/FLX/EXT 06/21/22 [facility]7 [employer] Other PAP ACOG PANEL 2: 30 to 65on 12-06-2021 . . Normal [facility] Comment on above: Result Comment: Perf ormed at: WB Performed By: #### [id number] #### [facility] [address] [place] [address] Dr. Eron Spencer Age Gdln ACOG Testing 30-65 Normal [facility] Comment on above: Performed By: #### [id number] #### [facility] [address] [place] [address] Dr. Eron Spencer DIAGNOSIS: Comment Normal [facility] Comment on above: Result Comment: NEGA TIVE FOR INTRAEPITHELIAL LESION OR MALIGNANCY. THIS SPECIMEN WAS RESCREENED PART OF OUR MANAGER ACCOUNT MANAGEMENT PROGRAM. Performed at: WB Performed By: #### [id number] #### [facility] [address] [place] [address] Dr. Eron Spencer HPV Aptima Negative Normal Negative [facility] Comment on above: Result Comment: This nucleic acid amplification test detects fourteen high-risk HPV types (16,18,31,33,35,39,45,51,52,56,58,59,66,68) without differentiation. Performed at: =G Performed By: #### [id number] #### [facility] [address] [place] [address] Dr. Eron Spencer Methodology: Comment Normal [facility] Comment on above: Result Comment: This liquid based ThinPrep(R) pap test was screened with the use of an image guided system. Performed at: WB Performed By: #### [id number] #### [facility] [address] [place] [address] Dr. Eron Spencer Note: Comment Normal [facility] Comment on above: Result Comment: The Pap smear is a screening test designed to aid in the detection of premalignant and malignant conditions of the uterine cervix. It is not a diagnostic procedure and should not be used as the sole means of detecting cervical cancer. Both false-positive and false-negative reports do occur. . Performed at: WB Performed By: #### [id number] #### [facility] [address] [place] [address] Dr. Eron Spencer Performed by: Comment Normal [facility] Comment on above: Result Comment: Kimberly Duarte, Thin Film Technician (ASCP) Performed at: WB Performed By: #### [id number] #### [facility] [address] [place] [address] Dr. Eron Spencer QC reviewed by: Comment Normal [facility] Comment on above: Result Comment: Israel Velazquez, Supervisory Thin Film Technician (ASCP) Performed at: WB Performed By: #### [id number] #### [facility] [address] [address] [address] Eron Spencer Specimen adequacy: Comment Normal [facility] Comment on above: Result Comment: Sati sfactory for evaluation. No endocervical component is identified. Performed at: WB Performed By: #### [id number] #### [facility] [address] [address] [address] Eron Spencer MG MAMM SCREEN 3D ARMAAN CADon 12-01-2021 MG MAMM SCREEN 3D ARMAAN CAD Patient: JOVANA XIE Exam Date: 12/01/2021 : 1970 Gender:F Ordering : DR ELVIA SWEENEY . Admission #: [id number] Family : Order #: [id number] CLICK HERE TO VIEW EXAM RADIOLOGY REPORT PROCEDURE: MAMMOGRAM SCREENING 3D BILATERAL CAD COMPARISON: DIGITIZED_MAMMO, 04/15/2010. MG MAMM SCREEN ARMAAN W CAD, 09/19/2016. INDICATIONS: Screening mammography Calculator Name NCI Breast Cancer Risk Assessment Tool 5 Year Breast Cancer Risk 0.90% Lifetime Breast Cancer Risk 8.80% Personal Breast Cancer No Personal Ovarian Cancer No Treatments None Family Cancers None LOCATION: [facility] BREAST COMPOSITION: Heterogeneously dense,which may obscure [...] Sanderson MD on 12/01/2021 at 11:45 Normal [facility] CBC AUTO DIFFon 11-30-2021 BASO # 0.0 103/ul Normal 0.0-0.1 [facility] Comment on above: Performed By: #### L IPID, CMP #### [facility] [address] [place] [address] Dr. Eron Spencer Basophils/100 WBC (Bld) 0.4 % Normal 0.2-2.0 [facility] Comment on above: Performed By: #### L IPID, CMP #### [facility] [address] [place] [address] Dr. Eron Spencer EO # 0.2 103/ul Normal 0.0-0.7 [facility] Comment on above: Performed By: #### L IPID, CMP #### [facility] [address] [place] [address] Dr. Eron Spencer Eosinophils/100 WBC (Bld) 2.0 % Normal 0.9-7.0 [facility] Comment on above: Performed By: #### L IPID, CMP #### [facility] [address] [place] [address] Dr. Eron Spencer Erythrocyte distribution width (RBC) [Ratio] 14.0 % Normal 11.0-15.0 [facility] Comment on above: Performed By: #### L IPID, CMP #### [facility] [address] [place] [address] Dr. Eron Spencer Hematocrit (Bld) [Volume fraction] 46.7 % Normal 36.0-48.0 [facility] Comment on above: Performed By: #### L IPID, CMP #### [facility] [address] [place] [address] Dr. Eron Spencer Hemoglobin (Bld) [Mass/Vol] 15.3 g/dL Normal 12.0-16.0 [facility] Comment on above: Performed By: #### L IPID, CMP #### [facility] [address] [place] [address] Dr. Eron Spencer IG # 0.03 10e3/ul Normal 0.00-0.03 [facility] Comment on above: Performed By: #### L IPID, CMP #### [facility] [address] [address] [address] Eron Spencer IG % 0.3 % Normal 0.0-0.5 [facility] Comment on above: Performed By: #### L IPID, CMP #### [facility] [address] [place] [address] Dr. Eron Spencer LYMPH # 2.7 103/ul Normal 1.2-3.8 [facility] Comment on above: Performed By: #### L IPID, CMP #### [facility] [address] [place] [address] Dr. Eron Spencer Lymphocytes/100 WBC (Bld) 29.7 % Normal 20.5-60.0 [facility] Comment on above: Performed By: #### L IPID, CMP #### [facility] [address] [place] [address] Dr. Eron Spencer MANUAL DIFF REQ NO Normal [facility] Comment on above: Performed By: #### L IPID, CMP #### [facility] [address] [place] [address] Dr. Eron Spencer MCH (RBC) [Entitic mass] 27.7 pg Normal 26.7-34.0 [facility] Comment on above: Performed By: #### L IPID, CMP #### [facility] [address] [place] [address] Dr. Eron Spencer MCHC (RBC) [Mass/Vol] 32.8 g/dL Normal 29.9-35.2 [facility] Comment on above: Performed By: #### L IPID, CMP #### [facility] [address] [place] [address] Dr. Eron Spencer MCV (RBC) [Entitic vol] 84.6 fL Normal 81.0-99.0 [facility] Comment on above: Performed By: #### L IPID, CMP #### [facility] [address] [place] [address] Dr. Eron Spencer MONO # 0.6 103/ul Normal 0.3-0.8 [facility] Comment on above: Performed By: #### L IPID, CMP #### [facility] [address] [address] [address] Eron Spencer Monocytes/100 WBC (Bld) 7.0 % Normal 1.7-12.0 [facility] Comment on above: Performed By: #### L IPID, CMP #### [facility] [address] [address] [address] Eron Spencer NEUT # 5.4 103/ul Normal 1.4-6.5 [facility] Comment on above: Performed By: #### L IPID, CMP #### [facility] [address] [place] [address] Dr. Eron Spencer Neutrophils/100 WBC (Bld) 60.6 % Normal 43.0-75.0 [facility] Comment on above: Performed By: #### L IPID, CMP #### [facility] [address] [place] [address] Dr. Eron Spencer Platelet mean volume (Bld) [Entitic vol] 10.1 fL Normal 9.5-13.5 [facility] Comment on above: Performed By: #### L IPID, CMP #### [facility] [address] [place] [address] Dr. Eron Spencer PLT 297 103/ul Normal 150-450 [facility] Comment on above: Performed By: #### L IPID, CMP #### [facility] [address] [place] [address] Dr. Eron Spencer RBC 5.52 106/ul Critically high 4.20-5.[address] [facility] Comment on above: Performed By: #### L IPID, CMP #### [facility] [address] [place] [address] Dr. Eron Spencer WBC 9.0 103/ul Normal 4.0-11.0 [facility] Comment on above: Performed By: #### L IPID, CMP #### [facility] [address] [place] [address] Dr. Eron Spencer GLYCOHEMOGLOBIN A1Con 2021 ADA RECOMMENDATION SEE BELOW Normal [facility] Comment on above: Result Comment: ADA RECOMMENDED LIMIT 4.0 - 6.0 ADA THERAPEUTIC TARGET < 7.0 ACTION SUGGESTED > 7.0 Performed By: #### A 1C #### [facility] [address] [address] [address] Eron Spencer Glucose [Mass/Vol] 117 mg/dL Normal [facility] Comment on above: Performed By: #### A 1C #### [facility] [address] [address] [address] Eron Spencer HbA1c (Bld) [Mass fraction] 5.7 % Normal 4.5-6.2 [facility] Comment on above: Performed By: #### A 1C #### [facility] [address] [address] [address] Eron Spencer LIPID PROFILEon 11-30-2021 CHOL-HDL RATIO NORM SEE BELOW Normal [facility] Comment on above: Result Comment: 3.3 - 4.4 LOW RISK 4.4 - 7.1 AVERAGE RISK 7.1 - 11.0 MODERATE RISK >11.0 HIGH RISK Performed By: #### L IPID, CMP #### [facility] [address] [place] [address] Dr. Eron Spencer Cholesterol [Mass/Vol] 187 mg/dL Normal <=200 [facility] Comment on above: Performed By: #### L IPID, CMP #### [facility] [address] [place] [address] Dr. Eron Spencer Cholesterol in HDL [Mass/Vol] 42 mg/dL Normal 40-60 [facility] Comment on above: Performed By: #### L IPID, CMP #### [facility] [address] [address] [address] Eron Spencer Cholesterol in LDL [Mass/Vol] 127.4 mg/dL Normal [facility] Comment on above: Performed By: #### L IPID, CMP #### [facility] [address] [place] [address] Dr. Eron Spencer Cholesterol.total/ Cholesterol in HDL [Mass ratio] 4.5 {ratio} Normal [facility] Comment on above: Performed By: #### L IPID, CMP #### [facility] [address] [address] [address] Eron Spencer HDL NORMAL > or = 60 mg/dl - LOW CARDIOVASCULAR RISK <40 mg/dl - HIGH CARDIOVASCULAR RISK Normal [facility] Comment on above: Performed By: #### L IPID, CMP #### [facility] [address] [address] [address] Eron Spencer LDL CALC NORMAL SEE BELOW Normal [facility] Comment on above: Result Comment: <100 mg/dl OPTIMAL 100 - 129 mg/dl NEAR OR ABOVE OPTIMAL 130 - 159 mg/dl BORDERLINE HIGH 160 - 189 mg/dl HIGH >190 mg/dl VERY HIGH Performed By: #### L IPID, CMP #### [facility] [address] [place] [address] Dr. Eron Spencer Triglyceride [Mass/Vol] 88 mg/dL Normal <=150 [facility] Comment on above: Performed By: #### L IPID, CMP #### [facility] [address] [place] [address] Dr. Eron Spencer VLDL CALC 17.6 mg/dL Normal [facility] Comment on above: Performed By: #### L IPID, CMP #### [facility] [address] [place] [address] Dr. Eron Spencer PROF 14(COMP METB)on 022 Albumin [Mass/Vol] 3.3 g/dL Critically low 3.4-5.0 [facility] Comment on above: Performed By: #### L IPID, CMP #### [facility] [address] [place] [address] Dr. Eron Spencer Albumin/Globulin [Mass ratio] 0.8 {ratio} Normal [facility] Comment on above: Performed By: #### L IPID, CMP #### [facility] [address] [place] [address] Dr. Eron Spenecr ALP [Catalytic activity/Vol] 132 U/L Critically high 46-116 [facility] Comment on above: Performed By: #### L IPID, CMP #### [facility] [address] [place] [address] Dr. Eron Spencer ALT [Catalytic activity/Vol] 79 U/L Critically high 14-59 [facility] Comment on above: Performed By: #### L IPID, CMP #### [facility] [address] [place] [address] Dr. Eron Spencer Anion gap [Moles/Vol] 15.4 mmol/L Normal [facility] Comment on above: Performed By: #### L IPID, CMP #### [facility] [address] [place] [address] Dr. Eron Spencer AST [Catalytic activity/Vol] 44 U/L Critically high 15-37 [facility] Comment on above: Performed By: #### L IPID, CMP #### [facility] [address] [place] [address] Dr. Eron Spencer Bilirubin [Mass/Vol] 0.6 mg/dL Normal 0.2-1.0 [facility] Comment on above: Performed By: #### L IPID, CMP #### [facility] [address] [place] [address] Dr. Eron Spencer Calcium [Mass/Vol] 9.0 mg/dL Normal 8.5-10.1 [facility] Comment on above: Performed By: #### L IPID, CMP #### [facility] [address] [place] [address] Dr. Eron Spencer Chloride [Moles/Vol] 102 mmol/L Normal 98-107 [facility] Comment on above: Performed By: #### L IPID, CMP #### [facility] [address] [place] [address] Dr. Eron Spencer CO2 [Moles/Vol] 24.5 mmol/L Normal 21.0-32.0 [facility] Comment on above: Performed By: #### L IPID, CMP #### [facility] [address] [place] [address] Dr. Eron Spencer Creatinine [Mass/Vol] 0.90 mg/dL Normal 0.55-1.02 [facility] Comment on above: Performed By: #### L IPID, CMP #### [facility] [address] [place] [address] Dr. Eron Spencer EGFR-AF NAMIBIAN >80 Normal >=[address] [facility] Comment on above: Performed By: #### L IPID, CMP #### [facility] [address] [address] [address] Eron Spencer EGFR-NON AF NAMIBIAN >66 Normal >=60 [facility] Comment on above: Performed By: #### L IPID, CMP #### [facility] [address] [address] [address] Eron Spencer Globulin (S) [Mass/Vol] 4.1 g/dL Normal [facility] Comment on above: Performed By: #### L IPID, CMP #### [facility] [address] [address] [address] Eron Spencer Glucose [Mass/Vol] 96 mg/dL Normal 74-106 [facility] Comment on above: Performed By: #### L IPID, CMP #### [facility] [address] [address] [address] Eron Spencer Potassium [Moles/Vol] 3.9 mmol/L Normal 3.5-5.1 [facility] Comment on above: Performed By: #### L IPID, CMP #### [facility] [address] [place] [address] Dr. Eron Spencer Protein [Mass/Vol] 7.4 g/dL Normal 6.4-8.2 [facility] Comment on above: Performed By: #### L IPID, CMP #### [facility] [address] [address] [address] Eron Spencer Sodium [Moles/Vol] 138 mmol/L Normal 136-145 [facility] Comment on above: Performed By: #### L IPID, CMP #### [facility] [address] [place] [address] Dr. Eron Spencer Urea nitrogen [Mass/Vol] 12.0 mg/dL Normal 7.0-18.0 [facility] Comment on above: Performed By: #### L IPID, CMP #### [facility] [address] [place] [address] Dr. Eron Spencer Urea nitrogen/Creatinin e [Mass ratio] 13.3 mg/mg Normal [facility] Comment on above: Performed By: #### L IPID, CMP #### [facility] [address] [place] [address] Dr. Eron Spencer VITAMIN D 25 OHon 11-30-2021 VIT D 25-OH 35.6 ng/mL Normal [facility] Comment on above: Performed By: #### L IPID, CMP #### [facility] [address] [place] [address] Dr. Eron Spencer VIT D RANGES SEE BELOW Normal [facility] Comment on above: Result Comment: <20 ng/mL Vit D deficient 20 - <30 ng/mL Vit D insufficient 30 - 100 ng/mL Vit D sufficient >100 ng/mL Potential Toxicity Performed By: #### L IPID, CMP #### [facility] [address] [place] [address] Dr. Eron Spencer GROUP A STREP CULTUREon 11-03 S. pyogenes Ag Ql (Unsp spec) Culture Observations: NEGATIVE FOR GROUP A STREPTOCOCCUS. Normal [facility] Comment on above: Performed By: #### L IPID, CMP #### [facility] [address] [place] [address] Dr. Eron Spencer STREPT SCREENon 11-25-2021 STREP SCREEN A Negative Normal NEGATIVE [facility] Comment on above: Performed By: #### S SCRN, GRASTCX #### [facility] [address] [place] [address] Dr. Eron Spencer XR CHEST 1 Von [...] by: CAITLYN WATTS Date: 2021-11-25 15:41 Normal [facility] Covid-19 PCR (CVDTBH)on 11-03 SARS-CoV-2 (COVID-19) RNA SAVANNAH+probe Ql (Unsp spec) Not detected Normal NOT DETECTED [facility] Comment on above: Result Comment: This test is not yet approved or cleared by the [place] FDA. When there are no FDA-approved or cleared tests available, and other criteria are met, FDA can make tests available under an emergency access mechanism called an Emergency Use Authorization (EUA). The EUA for this test is supported by the Information Assurance Officer of Health and Human Service's (HHS's) declaration [...] Performed By: #### L IPID, CMP #### [facility] [address] [place] [address] Dr. Eron Spencer Glucose Glucometer (dC) [M ass/Vol]Ordered By: Charu Pham on 09-22-2021 Glucose [Mass/Vol] 97 mg/dL [facility] Comment on above: Random Glucose Refer ence Range is dependent on time and content of last meal. Glucose of more than 200 mg/dL in a nonstressed, ambulatory subject supports the diagnosis of Diabetes Mellitus. COVID-19 Positive/NegativeOr dered By: Charu Pham on 09-20-2021 SARS-CoV-2 (COVID-19) N gene SAVANNAH+probe Ql (Resp) Negative Negative [facility] Comment on above: Testing for SARS-CoV -2 by RT-PCRThis test was developed and its performance characteristics determined by [employer] ([employer]) and validated at the [facility]. This test has not been FDA cleared [...] 09-15-2021 Basophils (Bld) [#/Vol] 0.1 10*3/uL 0.0-0.2 [facility] Basophils/100 WBC Auto (Bld) Ordered By: Charu Pham on 09-15-2021 Basophils/100 WBC (Bld) 0.6 % [facility] Blood hemoglobin measurement (mass/volume)Ordered By: Charu Pham on 09-15-2021 Hemoglobin (Bld) [Mass/Vol] 13.7 g/dL 11.8-15.4 [facility] Blood leukocytes automated c ount (number/volume)Ordered By: Charu Pham on 09-15-2021 WBC (Bld) [#/Vol] 9.4 10*3/uL 4.5-11.0 [facility] Body fluid albumin measureme nt (mass/volume)Ordered By: Charu Pham on 09-15-2021 Albumin (Body fld) [Mass/Vol] 3.0 g/dL 3.2-5.5 [facility] Creatinine and Glomerular fi ltration rate.predicted panel (S/P/Bld)Ordered By: Charu Pham on 09-15-2021 Creatinine [Mass/Vol] 0.82 mg/dL 0.44-1.03 [facility] Eosinophils Auto (Bld) [#/Vo l]Ordered By: Charu Pham on 09-15-2021 Eosinophils (Bld) [#/Vol] 0.3 10*3/uL 0.0-0.45 [facility] [facility] Eosin[facility]/100 WBC Auto (Bl d)Ordered By: Charu Pham on 09-15-2021 Eosinophils/100 WBC (Bld) 3.1 % [facility] Erythrocyte distribution wid th Auto (RBC) [Ratio]Ordered By: Charu Pham on 09-15-2021 Erythrocyte distribution width (RBC) [Ratio] 15.0 % 11.9-15.3 [facility] Estimated glomerular filtrat ion rate (GFR) non- AmericanOrdered By: Charu Pham on 09-15-2021 GFR/1.73 sq M.predicted among non-blacks MDRD (S/P/Bld) [Vol rate/Area] > 60 mL/Min [facility] Globulin Calc (S) [Mass/Vol] Ordered By: Charu Pham on 09-15-2021 Globulin (S) [Mass/Vol] 2.9 g/dL [facility] Hematocrit Auto (Bld) [Volum e fraction]Ordered By: Charu Pham on 09-15-2021 Hematocrit (Bld) [Volume fraction] 40.8 % 34.0-46.4 [facility] Laboratory - Hematology and Cell countsOrdered By: Charu Pham on 09-15-2021 Nucleated RBC/100 WBC (Bld) [Ratio] 0.0 % 0-0.5 [facility] Lymphocytes Auto (Bld) [#/Vo l]Ordered By: Charu Pham on 09-15-2021 Lymphocytes (Bld) [#/Vol] 2.3 10*3/uL 1.00-4.8 [facility] Lymphocytes/100 WBC Auto (Bl d)Ordered By: Charu Pham on 09-15-2021 Lymphocytes/100 WBC (Bld) 24.5 % [facility] MCH Auto (RBC) [Entitic mass ]Ordered By: Charu Pham on 09-15-2021 MCH (RBC) [Entitic mass] 28.4 pg 24.7-34.3 [facility] MCHC Auto (RBC) [Mass/Vol]Or dered By: Charu Pham on 09-15-2021 MCHC (RBC) [Mass/Vol] 33.6 g/dL 32.0-35.0 [facility] MCV Auto (RBC) [Entitic vol] Ordered By: Charu Pham on 09-15-2021 MCV (RBC) [Entitic vol] 84.6 fL 80-100 [facility] Monocytes Auto (Bld) [#/Vol] Ordered By: Charu Pham on 09-15-2021 Monocytes (Bld) [#/Vol] 0.9 10*3/uL 0.0-0.8 [facility] Monocytes/100 WBC Auto (Bld) Ordered By: Charu Pham on 09-15-2021 Monocytes/100 WBC (Bld) 9.7 % [facility] Neutrophils Auto (Bld) [#/Vo l]Ordered By: Charu Pham on 09-15-2021 Neutrophils (Bld) [#/Vol] 5.9 10*3/uL 1.8-7.7 [facility] Neutrophils/100 WBC Auto (Bl d)Ordered By: Charu Pham on 09-15-2021 Neutrophils/100 WBC (Bld) 62.1 % [facility] No Panel InformationOrdered By: Charu Pham on 09-15-2021 Estimated GFR () > 60 mL/Min [facility] Comment on above: GFR estimated refere nce range: According to KDOQI guidelines, <60 ml/min/1.73m2 is sufficient to diagnose a patient with chronic kidney disease. Pharmacy Creatinine Clearance (Chem N/A [facility] Platelet mean volume Auto (B ld) [Entitic vol]Ordered By: Charu Pham on 09-15-2021 Platelet mean volume (Bld) [Entitic vol] 9.1 fL 6.3-10.7 [facility] Platelets Auto (Bld) [#/Vol] Ordered By: Charu Pham on 09-15-2021 Platelets (Bld) [#/Vol] 285 10*3/uL 150-450 [facility] Protein [Mass/volume] in Ser um or PlasmaOrdered By: Charu Pham on 09-15-2021 Protein [Mass/Vol] 5.9 g/dL 6.1-7.9 [facility] RBC Auto (Bld) [#/Vol]Ordere d By: Charu Pham on 09-15-2021 RBC (Bld) [#/Vol] 4.82 10*6/uL 3.60-5.[address] [facility] Serum or plasma alanine martinez otransferase measurement without P-5'-P (enzymatic activiOrdered By: Charu Pham on 09-15-2021 ALT No additional P-5'-P [Catalytic activity/Vol] 59 U/L 10-60 [facility] Serum or plasma albumin/glob ulin mass ratioOrdered By: Charu Pham on 09-15-2021 Albumin/Globulin [Mass ratio] 1.0 {ratio} [facility] Serum or plasma alkaline sera sphatase measurement (enzymatic activity/volume)Ordered By: Charu Pham on 09-15-2021 ALP [Catalytic activity/Vol] 90 U/L 32-92 [facility] Serum or plasma aspartate am inotransferase measurement (enzymatic activity/volume)Ordered By: Charu Pham on 09-15-2021 AST [Catalytic activity/Vol] 40 U/L 10-42 [facility] Serum or plasma calcium khurram urement (mass/volume)Ordered By: Charu Pham on 09-15-2021 Calcium [Mass/Vol] 8.9 mg/dL 8.2-10.2 [facility] Serum or plasma chloride rae surement (moles/volume)Ordered By: Charu Pham on 09-15-2021 Chloride [Moles/Vol] 105 mmol/L 95-114 [facility] Serum or plasma glucose khurram urement (mass/volume)Ordered By: Charu Pham on 09-15-2021 Glucose [Mass/Vol] 94 mg/dL 70-100 [facility] Comment on above: ADA recommended refe rence rangeRandom Glucose Reference Range is dependent on time and content of last meal. Glucose of more than 200 mg/dL in a nonstressed, ambulatory subject supports the diagnosis of Diabetes Mellitus. Serum or plasma potassium me asurement (moles/volume)Ordered By: Charu Pham on 09-15-2021 Potassium [Moles/Vol] 4.3 mmol/L 3.5-5.1 [facility] Serum or plasma sodium measu rement (moles/volume)Ordered By: Charu Pham on 09-15-2021 Sodium [Moles/Vol] 140 mmol/L 136-146 [facility] Serum or plasma total biliru bin measurement (mass/volume)Ordered By: Charu Pham on 09-15-2021 Bilirubin [Mass/Vol] 0.6 mg/dL 0.3-1.2 [facility] Serum or plasma total carbon dioxide measurement (moles/volume)Ordered By: Charu Pham on 09-15-2021 CO2 [Moles/Vol] 25.2 mmol/L 22.0-30.0 [facility] Serum or plasma urea nitroge n measurement (mass/volume)Ordered By: Charu Pham on 09-15-2021 Urea nitrogen [Mass/Vol] 11 mg/dL 02-24 [facility] CNPNon 04-26-2021 CNPN Telephone (JACOBO) ---- JOVANA XIE ([id number]) 1970 F Date Time Provider Department 04/26/21 MAEGAN ANGULO During your visit today, we recorded the following information about you: Calli Live 04/26/2021 10:21 AM Signed Patient called to follow up on records to see if they had been received. Informed patient that they are not in her chart at this time. Encouraged patient to have records sent to [phone]. Calli Live 04/26/2021 11:57 AM Signed Records received and placed on Maris Ramirez's desk for review. [facility]i Live Allergies As of Date: 04/26/2021 Noted Allergy Reaction DEXAMETHASONE 12/10/2020 8 - GI Upset Comments: HAIR LOSS PENICILLINS 12/10/2020 14 - Other: See Comments Comments: HIGH FEVER-CHILLS Date Reviewed: 02/10/2021 Reviewed by: Maris Ramirez APRN.SOLUTION PROFESSIONAL - Fully Assessed Reason for Visit: Nurse [...] Encounter Status:Closed by CALLI LIVE on 04/26/21 [facility] Bhumi 02-11-2021 ILEANAN Telephone (PAINMN) ---- JOVANA XIE ([id number]) 1970 F Date Time Provider Department 02/11/21 MARIS RAMIREZ During your visit today, we recorded the following information about you: Maris Ramirez APRN.ILEANA 02/11/2021 7:37 AM Signed Please advise patient we received a fax from [facility]. It was the discharge page after her MRI. This is not what I had asked her to send. We need the procedure notes from her pain physician to see what procedures she has had done in the past. Thanks, Maris Ramirez APRN.ILEANA Ramirez APRN.CNP 02/11/2021 7:40 AM Signed Her provider in [place] is [facility]. Also need the EMG. Thanks, Maris Ramirez APRN.CNP Allergies As of Date: 02/11/2021 Noted Allergy Reaction DEXAMETHASONE 12/10/2020 8 - GI Upset Comments: HAIR LOSS PENICILLINS 12/10/2020 14 - Other: See Comments Comments: HIGH FEVER-CHILLS Date Reviewed: 02/10/2021 Reviewed by: Maris Ramirez APRN.ILEANA - Fully Assessed Reason for Visit: Patient [...] Status:Closed by MARIS RAMIREZ on 02/11/21 [facility] 02-02-2021 CNPN Telephone (PAINMN) ---- JOVANA XIE ([id number]) 1970 F Date Time Provider Department 02/02/21 MARIS RAMIREZ PAINMN During your visit today, we recorded the following information about you: Maris Ramirez APRN.[facility] 02/02/2021 12:33 PM Signed Please advise patient that the flexion extension xrays are still needed. She has a virtual visit with me on . Copied from staff messages: Maris I looked [...] states she will try to get to [facility] today to get films. Calli L Jj Allergies As of Date: 02/02/2021 Noted Allergy Reaction DEXAMETHASONE 12/10/2020 8 - GI Upset Comments: HAIR LOSS PENICILLINS 12/10/2020 14 - Other: See Comments Comments: HIGH FEVER-CHILLS Date Reviewed: 01/27/2021 Reviewed by: José Miguel Suarez, yeast culture developer - Fully Assessed Reason for Visit: Results [...] 12/10/2020 Encounter Status:Closed by MARIS RAMIREZ on 9/1/21 Normal [facility] XR LUMBAR 4V AP/LAT/ FLEX/EX Ton [...] lumbar facet arthrosis. Mild lower lumbar spondylosis. Director Of Preclinical Research: PSCChayo Transcribe Date/Time: Feb 03 2021 9:38A Dictated by : SAULO ROCA MD This examination was interpreted and the report reviewed and electronically signed by: SAULO ROCA MD on Feb 03 2021 9:44AM EST [id number] Normal [facility] XR LUMBAR MOTION 4V AP/LAT/ FLEX/EXTon 02-02-2021 [facility] MRI LUMBAR SPINE WO/W IVCONo n 01-27-2021 MRI LUMBAR SPINE WO/W IVCON * * *Final Report* * * DATE OF EXAM: Jan 27 2021 10:37AM LNM [id number] - MRI LUMBAR SPINE WO/W IVCON [...] and assume there are 5 lumbar-type vertebrae. Director Of Preclinical Research: PSCB Transcribe Date/Time: Jan 27 2021 11:21A Dictated by : MARIELLE SCOTT MD This examination was interpreted and the report reviewed and electronically signed by: MARIELLE SCOTT MD on Jan 27 2021 11:45AM EST [id number] Normal [facility] 12-22-2020 CNPN Telephone (PAINMN) ---- JOVANA XIE ([id number]) 1970 F Date Time Provider Department 12/22/20 MARIS RAMIREZ PAINMN During your visit today, we recorded the following information about you: Maris Ramirez APRN.[facility] 12/22/2020 3:00 PM Signed ----- Message from [email or web address] sent at 12/22/2020 12:17 PM EDT [...] Who can complete the Peer to Peer?: Dr, PA, [employer]TING, LN Allowable Peer to Peer timeframe?: 3 business days starting from 12/20/2020 Payer Information Insurance Name: [employer] P2P option 3 Case #: [id number] Appeal Information Appeal Address: [place]. Attn: Appeals Department [address] [place] [address] Appeal Fax#: [phone] Special Appeal Instruction: Send it attention to: Appeals department and attached any pertinent supporting documenation Allowable Timeframe for Appeal: 90 days from the denial date Facility Information Location: [facility] Tax ID#: [id number] Patient Demographics Patient Last Name: Anne-Marie Patient First Name: Jovana Date of : 1970 Clinical/Denial Information Ordering Provider: Maegan Angulo Approved Services: N/A Denied Services: 25689 - MRI LUMBAR SPINE WO/W IVCON Alternative [...] NOTES:Latia ANGULO For questions, please contact April [email or web address]. Thank you for the attentionSelma. Maris Ramirez APRN.SOLUTION PROFESSIONAL 12/22/2020 3:03 PM Signed Can you check [...] asking for a call back. Maris Ramirez APRN.CNP Calli Bryce Live 12/24/2020 2:15 PM Signed Patient returned call. States that she has completed PT at [facility]. Patient given fax number to have records sent to our office. Calli Live 12/24/2020 2:50 PM Signed PT report received from [facility]. Scanned into chart. Calli Wu Jj Ramirez APRN.CNP 12/24/2020 4:21 PM Signed I have now spoken to 2 physician reviewers and reviewed previous MRI and advised that PT notes are scanned into [employer]. They are requiring the PT notes be uploaded to [employer]. I sent a message to our authorization folks to have this done. She will need to reschedule the MRI. I sent her a [employer] message advising her of this. [employer] 12/24/2020 4:34 PM Signed Patient notified via phone and verbalizes understanding. She will reschedule. Calli Bryce Live Allergies As of Date: 12/22/2020 Noted Allergy [...] 20 m (more content not included)... Normal [facility] 12-17-2020 CNPN Telephone (PAINMN) ---- JOVANA XIE ([id number]) 1970 F Date Time Provider Department 12/17/20 MAEGAN ANGULO (HIST) PAINMN During your visit today, we recorded the following information about you: Calli Wu Jj 12/17/2020 12:11 PM Signed Patient called asking if her records had been faxed to her referring provider, Asha Louis. Records faxed per patient request. Calli Wu Jj Allergies As of Date: 12/17/2020 Noted Allergy [...] Encounter Status:Closed by CALLI LIVE on 12/17/20 [facility] CNOVon 12-10-2020 CNOV Office Visit (PAINMN) ---- JOVANA XIE ([id number]) 1970 F Date Time Provider Department 12/10/20 [...] internal providers or by letter via the [employer] for external providers. Chief Complaint: Back pain History of Present Illness: Jovana Xie is a 50 year old who presents to [facility] Pain Management Department for a follow [...] prior to (more content not included)... Normal [facility] OT-CT ABD/PELVIS WO CON IMPO RTon 10-17-2020 OT-CT ABD/PELVIS WO CON IMPORT Images were obtained outside of [facility] [id number] Normal [facility] Vital Signs Date Time Vital Sign Value Performing Clinician Facility 11-14-2023 12:31-0400 Blood Pressure Location Navdeep Valiente [facility] 11-14-2023 12:31-0400 Diastolic blood pressure 83 mm[Hg] Mohamad Mouchli [facility] 11-14-2023 12:31-0400 Heart rate 71 /min Mohamad Mouchli [facility] 11-14-2023 12:31-0400 Respiratory rate 16 /min Mohamad Mouchli [facility] 11-14-2023 12:31-0400 Systolic blood pressure 122 mm[Hg] Mohamad Mouchli [facility] 10-22-2023 11:30-0400 Blood Pressure Location Mohamad Mouchli [facility] 10-22-2023 11:30-0400 Diastolic blood pressure 64 mm[Hg] Mohamad Mouchli [facility] 10-22-2023 11:30-0400 Heart rate 63 /min Mohamad Mouchli [facility] 10-22-2023 11:30-0400 Mean blood pressure 83 mm[Hg] Mohamad Mouchli [facility] 10-22-2023 11:30-0400 Respiratory rate 13 /min Mohamad Mouchli [facility] 10-22-2023 11:30-0400 SaO2% (BldA) [Mass fraction] 93 % Mohamad Mouchli [facility] 10-22-2023 11:30-0400 Systolic blood pressure 122 mm[Hg] Mohamad Mouchli [facility] 10-22-2023 11:20-0400 Blood Pressure Location Mohamad Mouchli [facility] 10-22-2023 11:20-0400 Diastolic blood pressure 63 mm[Hg] Mohamad Mouchli [facility] 10-22-2023 11:20-0400 Heart rate 64 /min Mohamad Mouchli [facility] 10-22-2023 11:20-0400 Mean blood pressure 79 mm[Hg] Mohamad Mouchli [facility] 10-22-2023 11:20-0400 Respiratory rate 12 /min Mohamad Mouchli [facility] 10-22-2023 11:20-0400 SaO2% (BldA) [Mass fraction] 93 % Mohamad Mouchli [facility] 10-22-2023 11:20-0400 Systolic blood pressure 111 mm[Hg] Mohamad Mouchli [facility] 10-22-2023 11:05-0400 Blood Pressure Location Mohamad Mouchli [facility] 10-22-2023 11:05-0400 Diastolic blood pressure 57 mm[Hg] Mohamad Mouchli [facility] 10-22-2023 11:05-0400 Heart rate 64 /min Mohamad Mouchli [facility] 10-22-2023 11:05-0400 Mean blood pressure 72 mm[Hg] Mohamad Mouchli [facility] 10-22-2023 11:05-0400 Respiratory rate 25 /min Mohamad Mouchli [facility] 10-22-2023 11:05-0400 SaO2% (BldA) [Mass fraction] 95 % Chuckd Adanuchli [facility] 10-22-2023 11:05-0400 Systolic blood pressure 102 mm[Hg] Nikhilamad Adanuchli [facility] 10-22-2023 10:52-0400 Body temperature 98.42 [degF] Chuckd Mouchli [facility] 10-22-2023 09:47-0400 Body temperature 97.52 [degF] Chuckd Mouchli [facility] 10-18-2023 09:31-0400 Blood Pressure Location Mohlaned Keirali [facility] 10-18-2023 09:31-0400 Diastolic blood pressure 82 mm[Hg] Chuckd Adanuchli [facility] 10-18-2023 09:31-0400 Heart rate 76 /min Chuckd Adanuchli [facility] 10-18-2023 09:31-0400 Systolic blood pressure 118 mm[Hg] Chuckd Adanuchli [facility] 11-08-2022 09:45-0400 Body height 162.56 cm [employer] [facility] [employer] Other 11-08-2022 09:45-0400 Body mass index (BMI) [Ratio] 51.49 kg/m2 [employer] Other [employer] Other 11-08-2022 09:45-0400 Body weight 136.08 kg [employer] Other [employer] Other 10-11-2022 11:15-0400 Body height 162.56 cm Charu Pham Other [employer] Other 10-11-2022 11:15-0400 Body mass index (BMI) [Ratio] 51.49 kg/m2 Charu Pham Other [employer] Other 10-11-2022 11:15-0400 Body weight 136.08 kg Charu Pham Other [employer] Other 06-21-2022 11:30-0500 Body height 162.56 cm Charu Pham Other [employer] Other 06-21-2022 11:30-0500 Body mass index (BMI) [Ratio] 48.06 kg/m2 Charu Pham Other [employer] Other 06-21-2022 11:30-0500 Body weight 127.01 kg Charu Pham Other [employer] Other 09-22-2021 14:30-0400 Diastolic blood pressure 77 mm[Hg] MD Charu Pham Work Phone: [facility] 09-22-2021 14:30-0400 Heart rate 65 /min MD Charu Pham Work Phone: [facility] 09-22-2021 14:30-0400 Respiratory rate 16 /min MD Charu Pham Work Phone: [facility] 09-22-2021 14:30-0400 SaO2% (BldA) [Mass fraction] 95 % MD Charu Pham Work Phone: [facility] 09-22-2021 14:30-0400 Systolic blood pressure 131 mm[Hg] MD Charu Pham Work Phone: [facility] 09-22-2021 13:37-0400 Inhaled oxygen flow rate 8 L/min MD Charu Pham Work Phone: [facility] 09-22-2021 12:37-0400 Body height 162.56 cm MD Charu Pham Work Phone: [facility] 09-22-2021 12:37-0400 Body mass index (BMI) [Ratio] 54.1 kg/m2 MD Charu Pham Work Phone: [facility] 09-22-2021 12:37-0400 Body weight 143 kg MD Charu Pham Work Phone: [facility] 09-22-2021 11:44-0400 Body temperature 97.6 [degF] MD Charu Pham Work Phone: [facility] 07-29-2021 09:30-0500 Body height 162.56 cm Charu Iyerdominga Other [facility] [employer] Other 07-29-2021 09:30-0500 Body mass index (BMI) [Ratio] 53.21 kg/m2 Charu Calvey Other [employer] Other 07-29-2021 09:30-0500 Body weight 140.62 kg Charu Calvey Other [employer] Other 06-17-2021 09:15-0500 Body height 162.56 cm Charu Calvdominga Other [employer] Other 06-17-2021 09:15-0500 Body mass index (BMI) [Ratio] 53.21 kg/m2 Charu Calvey Other [employer] Other 06-17-2021 09:15-0500 Body weight 140.62 kg Charu Calvey Other [employer] Other 05-20-2021 09:30-0500 Body height 162.56 cm Charu Calvey Other [employer] Other 05-20-2021 09:30-0500 Body mass index (BMI) [Ratio] 51.49 kg/m2 Charu Calvdominga Other [employer] Other 05-20-2021 09:30-0500 Body weight 136.08 kg Charu Pham Other [employer] Other 03-23-2021 11:00-0400 Body height 162.56 cm Charu Pham Other [employer] Other 03-23-2021 11:00-0400 Body mass index (BMI) [Ratio] 51.15 kg/m2 Charu Pham Other [employer] Other 03-23-2021 11:00-0400 Body weight 135.17 kg Charu Pham Other [employer] Other Encounters Encounter Date Encounter Type Care Provider Facility Start: 12-04-2024 ambulatory Melissa Erazo Facility :[facility] [place] Start: 12-27-2023 ambulatory Melissa Erazo Facility :[facility] [place] Start: 12-14-2023 End: 12-14-2023 ambulatory [facility] Start: 12-03-2023 End: 12-03-2023 ambulatory Melissa Erazo Facility: [facility] [place] Start: 11-27-2023 End: 11-27-2023 ambulatory Melissa Erazo Facility:[facility] [place] Start: 11-14-2023 End: 11-14-2023 ambulatory Navdeep Valiente Facility:[facility] Start: 11-14-2023 End: 11-14-2023 Patient encounter procedure Navdeep Valiente [facility] Start: 10-30-2023 End: 10-30-2023 ambulatory Melissa Erazo [facility] Start: 10-25-2023 End: 10-25-2023 ambulatory Melissa Erazo Facility:[facility] Start: 10-22-2023 End: 10-22-2023 ambulatory Navdeep Valiente Facility:[facility] Start: 10-22-2023 End: 10-22-2023 Patient encounter procedure Navdeep Valiente [facility] Start: 10-19-2023 End: 10-19-2023 [facility] Start: 10-18-2023 End: 10-18-2023 ambulatory Navdeep Valiente Facility:[facility] Start: 10-18-2023 End: 10-18-2023 Patient encounter procedure Navdeep Valiente [facility] Start: 09-26-2023 ambulatory Melissa Erazo Facility:[facility] Start: 09-25-2023 End: 09-25-2023 Lab Drop off Melissa Erazo [facility] Start: 09-25-2023 End: 09-25-2023 ambulatory Melissa Erazo Facility:[facility] Start: 02-16-2023 End: 02-16-2023 ambulatory [facility] Start: 12-20-2022 End: 12-20-2022 ambulatory [facility] Start: 11-08-2022 End: 11-08-2022 ambulatory Charu Pham Other [employer] Other Start: 11-08-2022 Office outpatient vi sit 15 minutes Charu Pham [facility] Start: 10-27-2022 End: 10-28-[address] ALEM PASCUAL Facility:[facility] Start: 10-11-2022 Office outpatient vi sit 15 minutes Charu Calvey [facility] Start: 10-11-2022 End: 10-11-2022 ambulatory MD Elvia Sweeney Work Phone: [facility] Work Phone: Start: 10-11-2022 End: 10-11-2022 Patient encounter procedure MD Elvia Sweeney Work Phone: [facility] Start: 09-25-2022 End: 09-25-2022 Lab Drop off Melissa Erazo [facility] Start: 06-21-2022 Office outpatient vi sit 15 minutes Charuruth Pham [facility] Start: 06-21-2022 End: 06-21-2022 ambulatory MD Elvia Sweeney Work Phone: [facility] Work Phone: Start: 06-21-2022 End: 06-21-2022 Patient encounter procedure MD Elvia Sweeney Work Phone: [facility] Start: 12-27-2021 End: 12-28-[address] ELVIA SWEENEY . Facility:[facility] Start: 12-01-2021 End: 12-02-[address] ELVIA SWEENEY . Facility:[facility] Start: 11-30-2021 End: 12-01-[address] ELVIA SWEENEY . Facility:[facility] Start: 11-29-2021 End: 11-30-[address] ELVIA SWEENEY . Facility:[facility] Start: 11-25-2021 End: 11-25-2021 ambulatory BERRY VIRGEN Facility:[facility] Start: 11-23-2021 Encounter for preprocedural laboratory examination DR BRAD SHORE [facility] Start: 11-21-2021 End: 11-21-[address] BRAD SHORE Facility:[facility] Start: 11-21-2021 End: 11-21-2021 Encounter for preprocedural laboratory examination DR BRAD SHORE Facility:[facility] Start: 09-22-2021 End: 09-22-2021 Admission to same day surgery center MD Charu Pham Work Phone: [facility] [place] Start: 09-20-2021 End: 09-20-2021 Patient encounter procedure MD Charu Pham Work Phone: [facility] Start: 09-15-2021 End: 09-15-2021 Patient encounter procedure MD Charu Pham Work Phone: [facility] Start: 07-29-2021 End: 07-29-2021 ambulatory Charu Jaylondominga Other [employer] Other Start: 07-29-2021 Office outpatient vi sit 15 minutes Charu Calvey [facility] Start: 06-17-2021 End: 06-17-2021 ambulatory Charu Calvey Other [employer] Other Start: 06-17-2021 Postop follow up vis it related to original px Charu Calvey [facility] Start: 05-20-2021 End: 05-20-2021 ambulatory Charu Calvey Other [employer] Other Start: 05-20-2021 Postop follow up vis it related to original px Charu [facility] Start: 03-23-2021 Encounter for other preprocedural examination Charu [facility] Start: 03-23-2021 Office outpatient ne w 45 minutes Charu [facility] Start: 02-02-2021 End: 02-02-2021 Subsequent hospital visit by physician [facility] Comment on above: Facet arthropathy, l umbar [M47.816] Procedures Date Procedure Procedure Detail Performing Clinician Start: 10-22-2023 Colonoscopy Navdeep Valiente Start: 10-22-2023 Esophagogastroduodenoscopy Nikhillanesury villavicencio Start: 10-11-2022 Plain X-ray of bilateral [...] separate times H/O: hysterectomy S/P hysterectomy Chuck Valiente History of cholecystectomy S/P cholecyste ctomy Navdeep Valiente History of operative procedure on lumbar spinal structure Melissa Erazo Comment on above: L4-L5 disc December 2015 Tonsillectomy and adenoidectomy Melissa Erazo Plan of Treatment Date Care Activity Detail Author Start: 02-02-2023 Influenza vaccination INFLUENZA (#1) [facility] Start: 06-04-2022 DEPRESSION ASSESSMENT DEPRESSION ASSESSMENT [facility] Start: 2021 SHINGRIX VACCINE (1 of 2) SHINGRIX VACCINE (1 of 2) [facility] Start: 2016 COLOGUARD (FIT-DNA) COLOGUARD (FIT-DNA) [facility] Start: 2016 Colonoscopy COLONOSCOPY [facility] Start: 2016 COLORECTAL CANCER SCREENING COLORECTAL CANCER SCREENING [facility] Start: [address] COLONOGRAPHY [facility] Start: 2016 DIABETES SCREEN DIABETES SCREEN [facility] Start: 2016 FECAL OCCULT BLOOD FECAL OCCULT BLOOD [facility] Start: 2016 LIPID SCREEN LIPID SCREEN [facility] Start: 2016 SIGMOIDOSCOPY SIGMOIDOSCOPY [facility] Start: 2011 Mammography MAMMOGRAM [facility] Start: 2001 HPV TESTING HPV TESTING [facility] Start: 1992 PAP TESTING PAP TESTING [facility] Start: 1990 Urine microalbumin profile DTAP,TDAP,TD (1 - Tdap) [facility] Start: 1989 HEPATITIS C SCREENING HEPATITIS C SCREENING [facility] Start: 1989 HIV SCREENING HIV SCREENING [facility] Start: 1977 PNEUMOCOCCAL (1 - PCV) PNEUMOCOCCAL (1 - PCV) [facility] Start: 1971 COVID-19 VACCINE (#1) COVID-19 VACCINE (#1) [facility] Start: 1971 HEPATITIS B (1 of 3 - 3-dose series) HEPATITIS B (1 of 3 - 3-dose series) [facility] Patient referral [facility] Work Phone: Payers Date Payer Category Payer Self-pay [id number] 2017 Medicaid [place] [employer] [id number] [place] MEDICAID [id number] 2017-2022 [address] [place] [address] Medicaid [id number] 1971 Unknown [id number] 2.16.840.1.484943.3.579.2.593 1971 Unknown [id number] 2.16.840.1.441304.3.579.2.593 1971 Unknown [id number] 2.16.840.1.270198.3.579.2.593 1971 Unknown [id number] 2.16.840.1.433514.3.579.2.593 1971 Unknown [id number] 2.16.840.1.105398.3.579.2.593 1971 Unknown [id number] 2.16.840.1.794640.3.579.2.593 1971 Unknown [id number] 2.16.840.1.748182.3.579.2.593 1971 Unknown [id number] 2.16.840.1.524629.3.579.2.593 1971 Unknown [id number] 2.16.840.1.260938.3.579.2.593 1971 Unknown [id number] 2.16.840.1.852511.3.579.2.727 1971 Unknown [id number] 2.16.840.1.490121.3.579.2.727 1971 Unknown [id number] 2.16.840.1.298568.3.579.2.727 1971 Unknown [id number] 2.16.840.1.048051.3.579.2.727 1971 Unknown [id number] 2.16.840.1.636598.3.579.2.727 1971 Unknown [id number] 2.16.840.1.801158.3.579.2.727 1971 Unknown [id number] 2.16.840.1.372893.3.579.2.727 1971 Unknown [id number] 2.16.840.1.807976.3.579.2.727 1971 Unknown [id number] 2.16.840.1.910082.3.579.2.727 1971 Unknown [id number] 2.16.840.1.634719.3.579.2.727 1971 Unknown [id number] 2.16.840.1.856092.3.579.2.727 1959 Medicaid [id number] 1958 Medicare [id number] 2.16.840.1.385072.19 Unknown [facility] [id number] Unknown [employer] [id number] Unknown [id number] 2.16.840.1.582073.3.579.2.531 Social History Date Type Detail Facility Start: 09-15-2021 End: 09-22-2021 Tobacco smoking status NHIS Smoker (finding) [facility] Start: 1970 Sex Assigned At Female F [facility] Start: 12-10-2020 Sex Assigned At F [facility] Start: 09-25-2022 Tobacco smoking status Heavy t obacco smoker (finding) [facility] Tobacco smoking status Never [facility] Start: 12-10-2020 Tobacco smoking stat [facility] Smokes tobacco daily [facility] History of tobacco use Cigarette Smoker [facility] Start: 12-10-2020 Cigarettes smoked current (pack per day) - Reported 0.5 [facility] Start: 12-10-2020 Tobacco use and exposure Smokeless tobacco non-user [facility] Start: 12-10-2020 Alcohol intake Lifetime non-d joey (finding) [facility] Start: 12-14-2020 Gender identity Identifies as female gender (finding) [facility] Start: 12-14-2020 Sexual orientation Heterosexual (fin ding) [facility] Start: 12-28-2020 End: 01-27-2021 Exposure to SARS-CoV-2 (event) Not sure [facility] Start: 09-25-2023 End: 11-14-2023 Tobacco smoking status Ex-smoker (finding) [facility] Goals Date Patient Goal Desired Activity /State Functional Status Date Assessment Result Facility 11-14-2023 Functional Status N/A [facility] 10-22-2023 Functional Status N/A [facility] 10-18-2023 Functional Status N/A [facility] Clinical Notes 12-10-2020 to 12-15-2023 Note Date & Type Note Facility 12-15-2023 Note In light of recurren t chest pain and EVANS, risk factors of HTN, DM, current smoker and obesity. Further testing with echocardiogram and stress test ordered. [facility] 12-15-2023 Note In light of EVANS, piter st pain, new onset a fib will order echocardiogram for cardiac evaluation of cardiac and valvular function, and lexiscan for cardiac perfusion- she states that she is not able to walk a treadmill r/t SOB. [facility] 12-15-2023 Note Hypertension is unch anged. Continue medications as prescribed Blood pressure will be reassessed at the next regular appointment. [facility] 12-15-2023 Note Pt states that she w as diagnosed with YU in the past and know that she needs to wear a Cpap- but she was not able to wear in the past and states she needs to be re-evaluated and f/U with sleep medicine [facility] 12-14-2023 Note Patient here for fol low [...] All other systems reviewed and are negative. [facility] 12-14-2023 Note UTP CARDIOLOGY PROGR ESS NOTE [...] 130/88 and HR 141. She was in intermediate for 3 months and has lost 35# since last visit. Had labs recently for Dr. Erazo. She said since she wasn't getting all her meds while in intermediate, Dr. Erazo wanted to start from scratch [...] pen injector INJECT (more content not included)... [facility] 12-14-2023 Note [id number]- 3 fema le, HTN, DM Continue eliquis anticoagulation, and coreg Event monitor to be reviewed by Dr Watts RTC with Dr Watts in 1-3 months [facility] 12-03-2023 Note Patient Education Cardiovascular Atrial Fibrillation [...] these instructions at home: Medicines ? Take nwhz-vzk-fhomlvs and prescription medicines only as told by [...] A seizure. Thes (more content not included)... [facility] 10-23-2023 Note [id number] [facility] 10-22-2023 Evaluation + Plan note Extrac olesya from: Title:ANES Post General Author:Nolan Santiago DO Date:10/22/23 Plan Transfer/Discharge: Patient exhibiting no signs of N/V. Hydration status is adequate. Extracted from: Title:Jack Basic PRE Author:Jordin Santiago DO Date:10/22/23 Plan [place] [employer] Anesthesiologists (ASA) physical status classification: Class III. Anesthetic Preoperative Plan: Anesthesia General. Future Appointments Appointment Date:10/30/2023 09:45:00 AM Scheduled Provider:Melissa Erazo MD [facility] Hospital Discharge instructions Patient Education 10/22/2023 [...] reduce GERD symptoms. Medicines. These may include: ?Notk-gsj-rcxfzlr antacids. ?Medicines that make your stomach empty [...] may include: ?Fatty foods, like fried foods. ?[place] fruits, like oranges or lemon. ?Other foods [...] Do not drink alcohol. General instructions Take fhrf-xag-pkiewlp and prescription medicines only as told by [...] provider. Document Revised: 07/18/2022 Document Reviewed: 07/18/2022 [employer] Patient Education 2022 [employer] 10/22/2023 11:00:06 Diverticulosis MAGR (CUSTOM) Diverticulosis Many [...] unsweetened, w/added ascorbic acid 1 cup 0.5 [place] 1 cup 0.7 Vegetables Cooked Green beans 1 cup 4.0 Carrots 1/2 cup sliced 2.3 Peas 1 cup 8.8 Potato (baked, with skin) 1 medium potato 3.8 Raw [place] (with peel) 1 cucumber 1.5 Lettuce 1 [...] 8.7 Peanuts 1/2 cup 7.9 Chart from [facility] 2013. SEEK IMMEDIATE MEDICAL CARE IF: You [...] Information adapted from: ExitCare Patient Information 2009 [employer]. [employer] 2012 [email or web address] 10/22/2023 11:00:00 Colon Polyps Colon Polyps Colon [...] hard liquor (44 mL). General instructions Take ytzy-vqq-dqaolgx and prescription medicines only as told by [...] provider. Document Revised: 09/08/2020 Document Reviewed: 09/08/2020 [employer] Patient Education 2022 [employer] 10/22/2023 10:59:59 Colonoscopy, Care After Surgery Salam (CUSTOM) Colonoscopy Care After Surgery Please read the instructions outlined below and refer to this sheet in the next few weeks. These discharge instructions provide you with general information on caring for yourself after you leave thespital. Your doctor may also give you specific [...] day. 10/22/2023 10:59:56 Endoscopy, Care After Procedure [facility] Endoscopy Care After Procedure Please read the instructions outlined below and refer to this sheet in the next few weeks. These discharge instructions provide you with general information on [facility] Your doctor may also give you [...] Document Re-Released: 11/12/2006 ExitCare Patient Information 2009 [employer] [place]. Follow Up Care 10/18/2023 10:35:15 With:Navdeep Valiente Address: [address], [address] [place] [phone] Business (1) When:1 to 2 weeks Comments:Call for any problems. [facility]05[facility]17-[facility] Subjective Jovana Xie [...] 130/88 and HR 141. She was in intermediate for 3 months and has lost 35# since last visit. Had labs recently for Dr. Erazo. She said since she wasn't getting all her meds while in intermediate, Dr. Erazo wanted to start from scratch [...] complication, without long-term current use of insulin ([facility]) Diabetes mellitus type II, controlled ([facility]) Derangement of knee Dyspnea Extrinsic asthma with status asthmaticus Headache Hemorrhoids Low back pain Metabolic syndrome X Morbid obesity ([facility]) Obesity, Class III, BMI 40-49.9 (morbid obesity) ([facility]) Osteoarthritis Pain in right foot Pain [...] Echo: 07/06/2021 Normal ventricu (more content not included)...[facility]09-15-2023 NoteCardiology Clinic Note Subjective Jovana Xie is [...] Imaging and other test (more content not included)...[facility]09-15-2023 NotePatient here for 2 mo follow up hypertension and hyperlipidemia. At last apt in [place], carvedilol was doubled to 12.5mg bid. She [...] headaches. All other systems reviewed and are negative.[facility] 12-20-2022 NoteCardiology Clinic Note Subjective Jovana Xie is a 52 y.o. year old female With past medical history of hyperlipidemia, hypertension, GERD, insulin resistance, migraines, COPD, and obstructive sleep apnea on CPAP seen in follow-up. Patient Active Problem List Diagnosis Hypertension Asthma Chronic pain syndrome Controlled type 2 diabetes mellitus without complication, without long-term current use of insulin ([facility]) Diabetes mellitus type II, controlled ([facility]) Derangement of knee Dyspnea Extrinsic asthma [...] CBC; Future - Comprehensi (more content not included)...[facility] 12-20-2022 NotePatient here for 1 mo follow [...] headaches. All other systems reviewed and are negative.[facility] 11-08-2022 Evaluation note* Encounter Date Diagnosis Assessment Notes Treatment Notes Treatment Clinical Notes Nov, Right hand pain (ICD-10 - M79.641) Nov, Trigger thumb, right thumb (ICD-10 - M65.311) Patient is progressing well. May return for repeat injection or to discuss surgical release if recurs. Call with questions/concerns. [facility] Other 05-26-2023 NotePROCEDURE: XR HIPS ARMAAN 3_4V [...] Electronically authenticated by: ALEM PASCUAL Date: 2022-10-27 09:15[facility]05-26-2023 NotePROCEDURE: XR HIPS ARMAAN 3_4V WO PELVIS, [...] Electronically authenticated by: ALEM PASCUAL Date: 2022-10-27 09:15[facility]05-10-2023 Evaluation note* Encounter Date Diagnosis Assessment Notes [...] followup with neurosurgeon regarding left hand/arm numbness [facility] Other 01-18-2023 Evaluation note* Encounter Date Diagnosis Assessment Notes Treatment Notes Treatment Clinical Notes Jun, Cubital tunnel syndrome on left (ICD-10 - G56.22) Jun, Right carpal tunnel syndrome (ICD-10 - G56.01) Jun, Left carpal tunnel syndrome (ICD-10 - G56.02) Jun, Other specified postprocedural states (ICD-10 - Z98.890) Jun, Numbness of left crowlye d (ICD-10 - R20.0) Discussed patient may [...] further treatment options. Call with questions/concerns . [facility] Other 02-25-2022 Evaluation note* Encounter Date Diagnosis Assessment Notes Treatment Notes Treatment Clinical Notes Jul, Cubital tunnel syndrome on left (ICD-10 - G56.22) Patient doing well, progress as tolerated Jul, Left carpal tunnel syndrome (ICD-10 - G56.02) Jul, Other specified postprocedural states (ICD-10 - Z98.890) Jul, Numbness of right hand (ICD-10 - R20.0) We will refer patient for EMG right upper extremity [facility] Other 12-17-2021 Evaluation note* Encounter Date Diagnosis [...] Other specified postprocedural states (ICD-10 - Z98.890) [facility] Other 10-20-2021 Evaluation note* Encounter Date Diagnosis [...] G56.02) Mar, Pre-op exam (ICD-10 - Z01.818) [facility] Other 09-09-2021 NoteHNO ID: [id number] Author: Maris Ramirez APRN.SOLUTION PROFESSIONAL Service: ? Author Type: Nurse Practitioner Type: Progress Notes Filed: 02/11/2021 7:54 AM Note Text: Chronic Pain Clinic Virtual Visit Evaluation Patient is identified by name and date of . This is a virtual visit using EyeSpot video visit. It required patient-provider interaction for the medical decision making as documented below. Date: February 10, 2021 - 7:34 AM Chief Complaint: lower back pain SUBJECTIVE: Jovana Xie is a 50 year old who presents to [facility] Pain Management Department for a follow [...] injections with her local pain physician in [place]. She does not recall the names of [...] areas of pain. Also photos sent via Kw[employer] were reviewed during this visit. New Imaging [...] III, BMI 40-49.9 (morbid obesity) ([facility]) Jovana Xie is a 50 year old female with lower back pain that intermittently radiates down to her buttocks and posterior legs. She is s/p lumbar decompression surgery approx 4-5 years ago. She states that she was pain free up until about a year and a half ago (more content not included)...[facility]09-01-2021 NoteHNO ID: [id number] Author: Kourtney Johnson RT(R) Service: ? Author Type: Sugar Mixer Type: Progress Notes Filed: 02/02/2021 5:23 PM [...] Kourtney Johnson, RT(R) February 02, 2021 5:23 [facility]08-26-2021 NoteHNO ID: [id number] Author: SHABANA Nelson Service: Radiology Author Type: Sugar Mixer Type: Progress Notes Filed: 01/27/2021 10:27 AM [...] Xie DATE: January 27, 2021 TIME: 10:02 [facility]07-09-2021 NoteHNO ID: [id number] Author: Maegan Angulo MD Service: ? Author [...] internal providers or by letter via the [employer] for external providers. Chief Complaint: Back pain History of Present Illness: Jovana Xie is a 50 year old who presents to [facility] Pain Management Department for a follow [...] line specific nursing protocol (more content not included)...[facility] Evaluation + Plan note No data available for this section [facility] Future Appointments Appointment Date:10/25/2023 09:30:00 AM Scheduled Provider:Melissa Erazo MD [facility] Future Appointments Appointment Date:10/22/2023 10:30:00 AM Scheduled Provider: Location:[facility] Appointment Type:Surgery FT Appointment Date:10/25/2023 09:30:00 AM Scheduled Provider:Melissa Erazo MD [facility] Evaluation + Plan note Future Appointments Appointment Date:11/27/2023 09:15:00 AM Scheduled Provider:Melissa Erazo MD [facility] Appointment Type:[facility] evaluation noteNo assessment information available [facility] Work Phone: Evalubgbgx noteNort INCIDE Other Evaluation note* Diagnosis Facet arthropathy, lumbar Lumbosacral spondylosis without myelopathy Degenerative disc disease, lumbar Degeneration of lumbar or lumbosacral intervertebral disc documented in this encounter [facility] general Narrative - Reported* Type Description Date Medical History CARPAL TUNNEL Medical History HTN Medical History hyperglycemia Surgical History HYSTERECTOMY Surgical History TONSILECTOMY Surgical History BACK SURGERY Surgical History cholecystectomy Surgical History dental surgery Hospitalization History See Above [place] [facility] Other History general [facility] - [facility] Other Hospital Discharge instructions No data available for this section [facility] No data available for this section [facility] Summary Purpose Family History No Family History [...] of right ro[place] (R20.0) Referral Organization [facility] Referring Provider First Name Charu Referring Provider Last Name Ankit Referring Provider Specialty Hand Surger y Referred Organization Unknown Facility Referred Provider Specialty Neurology Referral Priority Routine Additional Source Comments INFORMATION SOURCE (unrecogn ized section and content) DATE CREATED AUTHOR 07/07/2021 [facility] DATE CREATED AUTHOR AUTHOR'S ORGANIZ ATION 11/10/2022 [facility] DATE CREATED AUTHOR AUTHOR'S ORGANIZ ATION 12/20/2023 [facility] DATE CREATED AUTHOR AUTHOR'S ORGANIZ ATION 12/20/2023 [facility] DATE CREATED AUTHOR AUTHOR'S ORGANIZ ATION 12/27/2023 [facility] Care Teams (unrecognized sec tion and content) Team Status: Inactive Member Role Status Dates Charu Pham MD Attending Provider Active Elvia Sweeney MD Primary Care Provider Active Team Status: Active Member Role Status Dates Elvia Sweeney MD Primary Care Provider Active Team Status: Inactive Member Role Status Dates Elvia Sweeney MD Primary Care Provider Active Charu Pham MD Attending Provider Active 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 FOR RECORDS PERTAINING TO PATIENTS WHO [...] BE BASED ON THE PRIMARY CLINICAL RECORDS. [employer] [facility]. provides no warranty or guarantee of the accuracy or completeness of information in this document.
[2024-01-01] MEDS: REGADENOSON 0.4 MG/5 ML SYRINGE IV (09:45)
--- NOTE | 2024-01-01 10:04 | PC.NURSE ---
Nursing Note Cardiac Stress Test Reviewed: Medication, allergies and patient history reviewed. Stress Test: [ x] Patient tolerated stress test well. [ ] Patient unable to tolerate walking on treadmill. Switched to Lexiscan stress test. [ ] No chest pain noted per patient [x ] Chest pain that resolved prior to leaving stress lab. [ x] No dyspnea noted. [ ] Dyspnea that resolved prior to leaving stress lab. [ x] Patient left stress lab asymptomatic and hemodynamically stable. [ ] Patient taken to the Emergency Room due to non-resolving symptoms following stress test. [ ] Patient achieved target heart rate. [ ] Patient unable to achieve target heart rate. [ ] Aminophylline administered as reversal agent to Lexiscan (Regadenoson). [ ] Nitro administered. Nursing Comments:Pt had Lexiscan done. Pt had some overall body and chest pressure after administration of lexiscan that went away within 3 minutes of injection. Pt states she felt back to normal prior to leaving stress lab and was taken down to the cafeteria by staff for breakfast prior to her second set of scans.
== END 2024-01-01 09:00 | disposition home or self-care (01) ==
LOC: CARD 08:59
PROVIDERS: PCP Family Medicine; Visit Provider Nurse Practitioner
DX: R06.09 Other forms of dyspnea (principal); R07.89 Other chest pain
CPT/HCPCS: 93017; J2785

== ENCOUNTER 2024-02-19 14:40 | Emergency (ER) | payer OTHER, MEDICAID, SELFPAY ==
[2024-02-19 14:46] VITALS: BP 136/96; PULSE 100; TEMP 36.6; O2SAT 97; BMI 47.9
--- NOTE | 2024-02-19 14:52 | ECG_ITS ---
[facility] Test Date: 2024-02-19 Pat Name: AGNES ROSSI Department: Room: - Gender: Female Chief Psychologist: : 1970 Requested By: MELISSA ERAZO Order Number: [id number] Reading MD: ADRIANNA KATZ Measurements Intervals [place] Rate: 92 P: 37 [place]: 160 QRS: 26 QRSD: 82 T: 27 QT: 356 QTc: 405 Interpretive Statements 1100 Sinus rhythm 8102 Low QRS voltage in chest leads 9120 atypical ECG Compared to ECG 11/25/2021 15:16:24 Low QRS voltage now present Electronically Signed On 02-19-2024 22:31:56 EDT by ADRIANNA KATZ
[2024-02-19] MEDS: 0.9 % SODIUM CHLORIDE 1,000 ML 1000 ML IV (15:32)
[2024-02-19] MEDS: ACETAMINOPHEN 500 MG TABLET PO (15:33)
[2024-02-19] MEDS: KETOROLAC TROMETHAMINE 30 MG/ML VIAL 15 MG IVP (15:33)
[2024-02-19] MEDS: METOCLOPRAMIDE HCL 10 MG/2 ML VIAL IVP (15:33)
--- NOTE | 2024-02-19 16:11 | ED_ITS ---
HPI HPI - General Adult General Chief complaint: Headache Stated complaint: FAST HEART RATE/ HEADACHE Time Seen by Provider: 02/19/24 15:03 Source: patient Mode of arrival: walk-in Limitations: no limitations History of Present Illness HPI narrative: Patient is a 53-year-old female who is presenting to the ER with chief complaint of headache to the top of her head. Patient states she does suffer from headaches and migraines in the past. Patient states that she was in the generalized headache, not more specific to the top of her head. Patient says it feels again a squeezing sensation, not necessarily sharp. Patient's headache was not the worse headache of her life, not sudden onset, not thunderclap in nature. Patient has no chest pain or shortness of breath. Patient was at Dr. Millard's office previously to the ER visit. Patient drove from Dr. Millard's office to the ER. Patient says that she lives [place] the [place] from the hospital. Patient does have a history of A-fib. Patient states that her heart rate was in the 170s in Dr. Millard's office, she can feel it going to her A-fib and then converted back to normal. Patient says that she felt her heart flip back into normal on the drive to the hospital. Patient went to see Dr. Millard initially just because of the headache to the top of her head. Patient does have history of headaches and migraines, patient does take migraine medication at home that typically works, but it did not help. Patient stated her headache started late Sunday evening or Sunday. Patient's had some nausea with no vomiting. No head injury, no recent falls. No vision or hearing changes. All systems are negative except as noted/marked. All systems reviewed and otherwise negative. Nurses note and vital signs reviewed and patient is not hypoxic. General: The patient appears well and in no apparent distress. Patient is resting comfortably on cart. Patient is not toxic, lethargic, or listless Skin: Warm, dry, no pallor noted. There is no rash noted. No petechiae, purpura. Head: Normocephalic, atraumatic; no tenderness to palpation to bilateral frontal or maxillary sinus. Eye: Normal conjunctiva, no drainage, EOMI. PERRL Ears, Nose, Mouth, and Throat: oral mucosa is moist. Nares patent. Mouth without vesicles. Cardiovascular: Regular Rate and Rhythm, no murmur, gallop, rub Respiratory: Patient is in no distress, no accessory muscle use, lungs are clear to auscultation, no wheezing, rales or rhonchi Back: non-tender, no CVA tenderness bilaterally to percussion. No CT LS midline pain GI: Obese, soft no tenderness Musculoskeletal: Patient has full range of motion of all of the extremities, no motor, sensory, or focal neurological deficits Neurological: A&O x4, normal speech Psychiatric: Cooperative Related Data Home Medications ?Medication ?Instructions ?Recorded ?Confirmed albuterol sulfate 90 mcg/actuation 2 puff inhalation Q4H PRN 02/19/24 02/19/24 aerosol inhaler shortness of breath or wheezing apixaban 5 mg tablet (Eliquis) 5 mg PO BID 02/19/24 02/19/24 nebivolol 10 mg tablet 10 mg PO DAILY 02/19/24 02/19/24 rimegepant 75 mg disintegrating 75 mg PO DAILY PRN migraine 02/19/24 02/19/24 tablet (Nurtec ODT) headache semaglutide 1 mg/dose (4 mg/3 mL) 1 mg subcut QWEEK 02/19/24 02/19/24 subcutaneous pen injector (Ozempic) Previous Rx's ?Medication ?Instructions ?Recorded metoclopramide HCl 10 mg tablet 10 mg PO Q6H PRN nausea and 02/19/24 (Reglan) vomiting 3 days #7 tabs ondansetron 4 mg disintegrating 4 mg PO Q4H PRN nausea and 02/19/24 tablet vomiting 3 days #6 tabs Allergies Allergy/AdvReac Type Severity Reaction Status Date / Time Penicillins AdvReac Severe pass out Verified 02/19/24 14:46 Opioid HPI Opioid Management Most Recent Opioid Data: No Data to Display PFSH PFSH Social History Little interest or pleasure in doing things: not at all Feeling down, depressed, or hopeless: not at all Exam Constitutional Vital Signs, click to edit/add: Last Vital Signs Temp 97.8 F 02/19/24 14:46 Pulse 100 H 02/19/24 14:46 Resp 18 02/19/24 14:46 BP 136/96 H 02/19/24 14:46 Pulse Ox 97 02/19/24 14:46 O2 Del Method Room Air 02/19/24 14:46 Course Vital Signs Vital signs: Vital Signs Temperature 97.8 F 02/19/24 14:46 Pulse Rate 100 H 02/19/24 14:46 Respiratory Rate 18 02/19/24 14:46 Blood Pressure 136/96 H 02/19/24 14:46 Pulse Oximetry 97 02/19/24 14:46 Oxygen Delivery Method Room Air 02/19/24 14:46 Temperature 97.8 F 02/19/24 14:46 Pulse Rate 100 H 02/19/24 14:46 Respiratory Rate 18 02/19/24 14:46 Blood Pressure 136/96 H 02/19/24 14:46 Pulse Oximetry 97 02/19/24 14:46 Oxygen Delivery Method Room Air 02/19/24 14:46 Medical Decision Making MDM Narrative Medical decision making narrative: Patient was initially given 1 L of IV fluid, Reglan, Toradol, and Tylenol. Patient did drive to the ER. Patient's heart rate has been in the 70s and 80s, she has not been in A-fib in the ER. Patient does take Eliquis for A-fib. Her social services designee is part of the [facility] group, she sees them at [facility]. 1630 patient's headache went from a 7/10 down to a 6/10. Patient has had a half a bag, 500 cc of normal saline. Patient was given IV fluids, Tylenol, Toradol, Reglan. Patient will be given Decadron, magnesium, Fioricet, and CT of the head to make sure there were not missing anything else acute. Patient's heart rate is stayed in the 70s, blood pressure has been normal. 1800 patient's headache has almost completely dissipated. CT of the head shows no acute findings. Patient felt much better with IV fluids and additional medication given. Patient was sent home with a prescription for Zofran and Reglan to use for nausea and headaches. Patient will follow-up with PCP. Patient has not had any tachycardic episode or A-fib with RVR the entire time patient has been in the ER. Patient has a history of A-fib, patient is on Eliquis, patient knows that A-fib does come and go, no cardiac workup was indicated at this time because she has been normal sinus rhythm entire time when she is in the ER Discharge Plan Discharge Chief Complaint: Headache Clinical Impression: Headache Patient Disposition: Home, Self-Care Time of Disposition Decision: 17:54 Condition: Fair Prescriptions / Home Meds: New ondansetron 4 mg tablet,disintegrating 4 mg PO Q4H PRN (Reason: nausea and vomiting) 3 Days Qty: 6 0RF metoclopramide HCl [Reglan] 10 mg tablet 10 mg PO Q6H PRN (Reason: nausea and vomiting) 3 Days Qty: 7 0RF No Action albuterol sulfate 90 mcg/actuation HFA aerosol inhaler 2 puff INHALATION Q4H PRN (Reason: shortness of breath or wheezing) Eliquis 5 mg tablet 5 mg PO BID nebivolol 10 mg tablet 10 mg PO DAILY Nurtec ODT 75 mg tablet,disintegrating 75 mg PO DAILY PRN (Reason: migraine headache) Ozempic 1 mg/dose (4 mg/3 mL) pen injector 1 mg SUBCUT QWEEK Print Language: Amharic Instructions: Acute Headache (ED) Additional Instructions: Use Zofran if needed for nausea. Use Reglan if needed for nausea, vomiting, or return of headache. You are given a dose of Decadron in the ER, this is to hopefully to prevent a rebound headache. Increase fluids at home. Follow-up with PCP for additional medication if needed. Referrals: MELISSA MILLARD [Primary Care Provider] - 1 week
--- NOTE | 2024-02-19 16:41 | CT_ITS ---
The [address] [address] Patient Name: AGNES ROSSI MRN: [id number] date: 1970 Sex: F Assigned Patient Location: ER Current Patient Location: .[facility] Accession/Order Number: [id number] Exam Date: 02/19/2024 16:39 Report Date: 02/19/2024 16:59 At the request of: JOSE SANTACRUZ Procedure: CT head/brain wo con EXAM: CT head/brain wo con HISTORY: top of head pain COMPARISON: CT brain 05/30/2018. TECHNIQUE: Axial CT scans through the head were obtained without IV contrast administration. Dose reduction techniques were achieved by using: automated exposure control and/or adjustment of mA and /or kV according to patient size and/or use of iterative reconstruction technique. FINDINGS: There is no acute intracranial hemorrhage or abnormal extra-axial fluid collection. No mass effect or midline shift is seen. There is no evidence of large acute territorial infarction. There is no hydrocephalus. To the limit of CT, the posterior fossa appears unremarkable. The calvaria and extra cranial soft tissues are unremarkable. The visualized orbits show no abnormality. The visualized paranasal sinuses show no air-fluid level. Mastoid air cells are clear. CT/CT head/brain wo con IMPRESSION: No acute intracranial process. Electronically authenticated by: MARIAELENA COMBS Date: 02/19/2024 16:59
[2024-02-19] MEDS: BUTALB/ACETAMINOPHEN/CAFFEINE 50-325-40MG TABLET 1 TAB PO (16:53)
[2024-02-19] MEDS: DEXAMETHASONE SOD PHOS 10 MG/ML VIAL IV (16:53)
[2024-02-19] MEDS: MAGNESIUM SULFATE IN WATER 2 GM/50 ML PREMIX IV (16:53)
== END 2024-02-19 18:16 | disposition home or self-care (01) ==
PROVIDERS: Emergency Provider Emergency Medicine; PCP Family Medicine
DX: R51.9 Headache, unspecified (principal); I48.91 Unspecified atrial fibrillation; E66.9 Obesity, unspecified; Z68.42 Body mass index [BMI] 45.0-49.9, adult; Z79.899 Other long term (current) drug therapy
CPT/HCPCS: 70450; 93005; 96365; 96375; 99285; J1100; J1885; J2765; J3475

== ENCOUNTER 2024-04-21 08:56 | Outpatient (RCR) | payer OTHER, MEDICAID, SELFPAY | END 2024-04-22 15:52 | disposition home or self-care (01) | LOC: PT 08:56 | PROVIDERS: PCP Family Medicine; Visit Provider Family Medicine | DX: M23.90 Unspecified internal derangement of unspecified knee (principal); M54.50 Low back pain, unspecified; M25.561 Pain in right knee; M25.562 Pain in left knee | CPT/HCPCS: 97110; 97112; 97161 ==

== ENCOUNTER 2024-07-08 08:30 | Outpatient (OUT) | payer OTHER, MEDICAID, SELFPAY ==
--- NOTE | 2024-07-08 08:35 | XR_ITS ---
The [address] [address] Patient Name: AGNES ROSSI MRN: [id number] date: 1970 Sex: F Assigned Patient Location: [facility] Current Patient Location: [facility] Accession/Order Number: [id number] Exam Date: 07/08/2024 08:40 Report Date: 07/08/2024 09:42 At the request of: MELISSA ERAZO Procedure: XR chest 2V EXAM: CHEST 2 VIEWS HISTORY: Rhonchi At Right Lung Base TECHNIQUE: PA and lateral views chest. COMPARISON: None. FINDINGS: Calcified right upper lobe granuloma. The lungs are clear. There is no focal lung consolidation, pleural effusion or pneumothorax. Pulmonary vasculature is within normal limits. Thoracic aorta is tortuous. Heart size is normal. XR/XR chest 2V IMPRESSION: 1. No acute cardiopulmonary disease. Electronically authenticated by: DAMIR HAN Date: 07/08/2024 09:42
--- OUTSIDE RECORDS SUMMARY | 2024-07-08 08:49 | XMS_ITS | CCD ---
Author Organization [facility] CliniSywy Care Team Providers Care Gta Name Role Phone MD Charu Pham Attending Provider MD Elvia Sweeney Primary Care Provider [phone] Charu Pham Unavailable MD Elvia Sweeney Primary Care Provider MD Charu Pham Attending Provider SANAZ, ELVIA Alex Primary Care Physician MD Elvia Sweeney Primary Care Provider [phone] MD Charu Pham Attending Provider SWEENEY ., DR ELVAI Alex Attending Unavailable SWEENEY ., DR ELVIA Alex Consulting Unavailable SWEENEY ., DR ELVIA Alex Admitting Unavailable SWEENEY ., DR ELVIA Alex Primary Care Unavailable SWEENEY ., DR ELVIA Alex Primary Care Unavailable ALGHONAVDEEP EVANS Admitting Unavailable MATTHEW TALLEYAMAD Attending Unavailable MONE, DR SALINAS Admitting Unavailable [...] Attending Unavailable RENALDO, ASHA Consulting Unavailable SAM .RAFAEL Admitting Unavailable MELISSA ERAZO Primary Care Unavailable SAMSA ., RAFAEL Attending Unavailable ANKUR, DR ALEM Amado Consulting Unavailable SAMSA ., RAFAEL Consulting Unavailable SWEENEY ., DR ELVIA Alex Admitting Unavailable SWEENEY ., DR ELVIA Alex Attending Unavailable SWEENEY ., DR ELVIA Alex Consulting Unavailable SWEENEY ., DR ELVIA Alex Primary Care Unavailable WEST, DR EULALIA West Consulting Unavailable Renaldo SNEHAL, Asha Unavailable [phone] Melissa Erazo. Primary Care Physician Unavailable Primary Care Provider UnavailYUSRA Otero Referring Unavailable Ayesha Brink DO Unavailable [phone] NAVDEEP TALLEY Attending Unavailable MEGAN MURPHY Attending Unavailable GRISEL SOLARES Attending Unavailable ADA PEDRAZA Attending Unavailable Aparna Briseno NP Unavailable Melissa Erazo MD Primary Care Provider [phone] AYESHA BRINK Attending Unavailable APARNA BRISENO Attending Unavailable Edenilson Moyer Attending Unavailab Edenilson Caballero Admitting Unavailab Elvia Velasco Primary Care Unavailable Freeman, Melissa E. Attending Unavailable Ross, Melissa E. Attending Unavailable Ross, Melissa E. Attending Unavailable Ross, Melissa E. Attending Unavailable Ross, Melissa E. Attending Unavailable Freeman, Melissa E. Attending Unavailable Freeman, Melissa E. Attending Unavailable Ross, Melissa E. Attending Unavailable Ross, Melissa E. Attending Unavailable Mouchli, Mohamad A. Referring Unavailable Mouchli, Mohamad A. Attending Unavailable Mouchli, Mohamad A. Admitting Unavailable Ross, Melissa E. Attending Unavailable Ross, Melissa E. Admitting Unavailable Ross, Melissa E. Attending Unavailable Ross, Melissa E. Attending Unavailable Ross, Melissa E. Attending Unavailable Ross, Melissa E. Attending Unavailable Ross, Melissa E. Admitting Unavailable Ross, Melissa E. Admitting Unavailable Mouchli, Mohamad A. Attending Unavailable Freeman, Melissa E. Referring Unavailable Mouchli, Mohamad A. Attending Unavailable Freeman, Melissa E. Attending Unavailable Ross, Melissa E. Attending Unavailable Ross, Melissa E. Attending Unavailable Ross, Melissa E. Attending Unavailable Ross, Melissa E. Admitting Unavailable Navdeep Valiente Attending Unavailable Melissa Erazo Attending Unavailable Allergies Allergy Classification Reported Allergen(s) Allergy Type Date of Onset Reaction(s) Facility (20 sources) Dexamethasone; Translations: [dexamethasone] Drug Allergy 12-11-19 21 Unknown (qualifier value), GI Upset, Nausea And Vomiting, Other (See Comments) [facility] (13 sources) Penicillins; Translations: [Penicillins] Allergy to substance 02-12-20 13 Other: See Comments, Unknown, Other [facility] (5 sources) Penicillins (Antibiotic) Propensity to adverse reactions [employer] Other (10 sources) Penicillin; Translations: [penicillin] Drug Allergy Unknown (qualifier value) [facility] (8 sources) predniSONE; Translations: [prednisone] Drug Allergy Unknown (qualifier value) [facility] (5 sources) Acetaminophen / HYDROcodone; Translations: [HYDROCODONE-ACET AMINOPHEN] Drug Allergy 06-23-19 17 [facility] (2 sources) Lisinopril; Translations: [LISINOPRIL] Drug Allergy 05-15-20 22 [facility] (4 sources) DULoxetine; Translations: [DULOXETINE] Drug Allergy 04-15-20 24 Nausea And Vomiting [facility] (3 sources) Lisinopril Propensity to adverse reactions 05-15-20 [facility] (2 sources) Dexamethasone; Translations: [Decadron] Drug Allergy [facility] Repository Medications Current Medications Medication Drug Class(es) Dates Sig (Normalized) Sig (Original) 3 ML semaglutide 1.34 MG/ML Pen Injector [Ozempic] (5 sources) Start: 12-27-2023 inject 1 mg by subcutaneous injection every week Ozempic (1 mg dose) 4 mg/3 mL subcutaneous solution See Instructions, INJECT 1 MG SUBCUANEOUSLY WEEKLY, # 9 mL, Refills(s) 3, Pharmacy: [facility]/pharmacy #[id number], 161.5, cm, 12/27/23 14:02:00 EDT, Height/Length Dosing, 124.4, kg, 12/27/23 14:02:00 EDT, Weight Dosing Start Date: 12/27/23 Status: Ordered Start: 09-25-2023 inject 1 mg by subcu taneous injection every week Ozempic (1 mg dose) 4 mg/3 mL subcutaneous solution See Instructions, INJECT 1 MG SUBCUANEOUSLY WEEKLY, # 9 mL, Refills(s) 3, Pharmacy: [id number], 162, cm, 09/25/23 13:12:00 EDT, Height/Length Dosing, 121.7, kg, 09/25/23 13:12:00 EDT, Weight Dosing Start Date: 09/25/23 Status: Ordered acetaminophen 300 mg / codeine phosphate 30 mg oral tablet (5 sources) Opioid Agonist Start: 11-17-2019 take 1 tablet by mouth once daily as needed acetaminophen-codeine (TYLENOL #3) 300-30 MG per tablet TAKE 1 TABLET BY MOUTH ONE TIME A DAY NEEDED. MUST LAST 30 DAYS. 11/17/2019 Active Start: 02-14-2018 End: 04-01-2021 take 1 tablet by mouth every four to six hours Acetaminophen-Codeine Discontinued 1 TAB PO EVERY 4-6 HOURS February 14, 2018 12:00am April 01, 2021 11:05am acetaminophen 325 mg / HYDROcodone bitartrate 5 mg oral tablet (7 sources) Opioid Agonist Start: 09-22-2021 take 1 tablet by mouth every four to six hours Hydrocodone-Acetaminophen Active 1 - 2 TAB PO EVERY 4-6 HOURS 30 September 22, 2021 Start: 04-14-2021 End: 09-15-2021 take 1 tablet by mouth every four to six hours Hydrocodone-Acetaminophen Discontinued 1 - 2 TAB PO EVERY 4-6 HOURS 30 4 April 14, 2021 September 15, 2021 1:33pm [id number] 200 actuat albuterol 0.09 mg/actuat metered dose inhaler (20 sources) beta2-Adrenergic Agonist Start: 12-29-2019 take 2 puff(s) by mouth every four hours as needed albuterol sulfate HFA 108 (90 Base) MCG/ACT inhaler TAKE 2 PUFFS BY MOUTH EVERY 4 HOURS NEEDED 12/29/2019 Active Start: 02-14-2018 albuterol (PRO VENTIL) 2.5 mg /3 mL (0.083 %) nebulizer solution Albuterol Sulfate Active 1 INH Inhalation EVERY 4-6 HOURS February 14, 2018 11:07am 02/14/2018 Active Start: 02-14-2018 take 1 puff(s) [...] 4-6 HOURS February 13, 2018 11:00pm take 1 puff(s) by in halation every four hours albuterol HFA 90 mcg/act inhaler Inhale 1 puff every 4 (four) hours if needed Active take 2 puff(s) by in halation every four hours as needed Albuterol Sulfate HFA 108 (90 Base) MCG/ACT INHALE 2 PUFFS EVERY 4 HOURS NEEDED Inhalation for 17 Days Active Comment on above: Albuterol Sulfate Ac tive 1 INH Inhalation EVERY 4-6 HOURS February 14, 2018 11:07am Albuterol (Eqv-Ventolin HFA) 90 mcg/inh inhalation aerosol (1 source) Start: 4 take 2 puff(s) by inhalation every six hours Albuterol (Eqv-Ventolin HFA) 90 mcg/inh inhalation aerosol 2 puff(s), Inhalation, q6hr Shortness of breath or wheezing, Refill(s) 0 Start Date: 01/07/24 Status: Ordered apixaban 5 mg oral tablet (9 sources) Factor Xa Inhibitor Start: 4 take 1 tablet by mouth twice daily ELIQUIS 5 MG TABS tablet Take 1 tablet by mouth 2 times daily 02/20/2024 Active take 1 tablet by mouth in the mo rning apixaban (Eliquis) 2.5 MG tablet Take 2.5 mg by mouth in the morning and 2.5 mg before bedtime. Active atorvastatin 40 mg oral tablet (7 sources) HMG-CoA Reductase Inhibitor Start: 02-16-2023 take 1 tablet by mouth at bedtime atorvastatin (Lipitor) 40 MG tablet Take 40 mg by mouth at bedtime 02/16/2023 Active betamethasone 0.5 mg/ml / clotrimazole 10 mg/ml topical cream (1 source) Azole Antifungal, Corticosteroid Start: 03-07-2024 clotrimazole-beta methasone (LOTRISONE) 1-0.05 % cream Indications: Vulvar itching Apply topically 2 times daily as needed for vulvar itching, not to exceed 6 weeks of continuous usage 45 g 1 03/07/2024 Active 60 actuat budesonide 0.16 mg/actuat / formoterol fumarate 0.0045 mg/actuat metered dose inhaler (9 sources) Corticosteroid, beta2-Adrenergic Agonist Start: 11-26-2020 take 2 puff(s) by inhalation twice daily SYMBICORT 160-4.5 mcg/actuation inhaler Inhale 2 Puffs as instructed twice daily. 11/26/2020 Active Start: 12-25-2019 take 2 puff(s) by mo uth twice daily SYMBICORT 160-4.5 MCG/ACT AERO TAKE TWO PUFFS BY MOUTH TWICE DAILY 12/25/2019 Active Start: 02-14-2018 End: 04-01-2021 take 1 [...] 2021 10:05am take 2 puff(s) by mo [facility] twice daily Symbicort 160-4.5 MCG/ACT INHALE 2 PUFFS BY MOUTH TWICE A DAY Inhalation for 30 Days Active Comment on above: Inhale 2 Puffs as in structed twice daily. carvedilol 25 mg oral tablet (9 sources) alpha-Adrenergic Pranay, beta-Adrenergic Pranay Start: 12-14-2023 take 1 tablet by mouth at dinner carvedilol (COREG) 25 MG tablet TAKE 1 TABLET BY MOUTH WITH BREAKFAST AND EVENING MEAL 12/14/2023 Active Start: 12-20-2022 take 1 tablet by bony in the morning carvedilol (Coreg) 12.5 MG tablet Take 12.5 mg by mouth in the morning and 12.5 mg in the evening. Take with meals. 12/20/2022 Active cephalexin 500 mg oral capsule (8 sources) Cephalosporin Antibacterial Start: 09-15-2021 take 500 mg by mouth three times daily Cephalexin Active 500 MG PO Three times daily September 15, 2021 12:00am Start: 09-15-2021 End: 09-15-2021 Cephalexin Discontinued MG A pril 2021 12:00am September 15, 2021 2:19pm cholecalciferol 0.125 mg oral capsule (12 sources) Vitamin D Start: 04-01-2021 take 125 ug by mouth once daily Cholecalciferol (Vitamin D3) Active 125 MCG PO Daily April 01, 2021 12:00am dicyclomine hydrochloride 20 mg oral tablet (2 sources) Anticholinergic Start: 10-17-2020 take 1 tablet by mouth every six hours as needed for pain dicyclomine (BENTYL) 20 mg tablet TAKE 1 TABLET BY MOUTH EVERY 6 HOURS NEEDED FOR ABDOMINAL PAIN 10/17/2020 Active Comment on above: TAKE 1 TABLET BY BONY EVERY 6 HOURS NEEDED FOR ABDOMINAL PAIN doxycycline hyclate 100 mg oral tablet (11 sources) Tetracycline-class Drug Start: 09-22-2021 take 100 mg by mouth twice daily Doxycycline Hyclate Active 100 MG PO Twice daily 10 September 22, 2021 12:00am Start: 04-14-2021 End: 09-15-2021 take 100 mg by mouth twice daily Doxycycline Hyclate Discontinued 100 MG PO Twice daily 10 April 14, 2021 1:00am September 15, 2021 1:31pm Start: 02-14-2018 End: 02-24-2018 take 100 mg by mouth twice daily Doxycycline Hyclate Discontinued 100 MG PO Twice daily 20 February 14, 2018 12:00am February 24, 2018 12:02am duloxetine 30 mg Cap-DR (1 source) Start: 09-01-2022 take 1 capsule by mouth once daily duloxetine 30 mg Cap-DR 30 mg, Oral, Daily, Refills(s) 0 Start Date: 09/01/22 Status: Ordered famotidine 20 mg oral tablet (18 sources) Histamine-2 Receptor Antagonist Start: 09-15-2021 take 1 tablet by mouth once daily famotidine (PEPCID) 20 MG tablet Take 1 tablet by mouth daily 01/07/2024 Active Start: 05-16-2016 famotidine (PE PCID) 40 mg tablet Famotidine Active 40 MG Oral Daily February 14, 2018 11:07am 05/16/2016 Active Start: 05-16-2016 End: 04-01-2021 take 40 mg by mouth once daily Famotidine Discontinued 40 MG PO Daily February 14, 2018 12:00am April 01, 2021 11:02am Comment on above: Famotidine Active 40 MG Oral Daily February 14, 2018 11:07am flecainide acetate 100 mg oral tablet (4 sources) Antiarrhythmic Start : 04-17 take 1 tablet by mouth every twelve hours flecainide 100 mg Tab 100 mg = 1 tab(s), Oral, q12hr, Refills(s) 0 Start Date: 04/17/24 Status: Ordered gabapentin 100 mg oral capsule (16 sources) Anti-epileptic Agent Start : 11-26 End: 04-07 take 1 capsule by mouth three times daily gabapentin (Neurontin) 100 MG capsule Indications: Chronic bilateral low back pain with bilateral sciatica TAKE 1 CAPSULE BY MOUTH THREE TIMES A DAY 90 capsule 3 05/10/2023 04/07/2024 Discontinued (Side effects) Comment on above: Take 100 mg by mouth three times daily. hydroCHLOROthiazide 25 mg oral tablet (3 sources) Thiazide Diuretic Start : 09-24 take 1 tablet by mouth once daily hydrochlorothiazide 25 mg Tab 25 mg = 1 tab(s), Oral, Daily, # 90 tab(s), Refills(s) 0, Pharmacy: [id number], 162, cm, 09/25/23 13:12:00 EDT, Height/Length Dosing, 121.7, kg, 09/25/23 13:12:00 EDT, Weight Dosing Start Date: 09/25/23 Status: Ordered hydroCHLOROthiazide 12.5 mg / lisinopril 20 mg oral tablet (3 sources) Thiazide Diuretic, Angiotensin Converting Enzyme Inhibitor take 1 tablet by mouth every twenty-four hours Lisinopril-hydroCHLOROth iazide 20-12.5 MG 1 tablet Orally Once a day Active take 1 tablet by mouth every twe nty-four hours losartan potassium 100 mg oral tablet (18 sources) Angiotensin 2 Receptor Pranay Start: 09-25-2023 take 1 tablet by mouth once daily losartan 100 mg Tab 100 mg = 1 tab(s), Oral, Daily, # 90 tab(s), Refills(s) 0, Pharmacy: [id number], 162, cm, 09/25/23 13:12:00 EDT, Height/Length Dosing, 121.7, kg, 09/25/23 13:12:00 EDT, Weight Dosing Start Date: 09/25/23 Status: Ordered Start: 09-15-2021 take 1 tablet by bony th once daily losartan 25 mg Tab 25 mg = 1 tab(s), Oral, Daily, Refills(s) 0 Start Date: 09/01/22 Status: Ordered take 1 tablet by bony th once daily losartan (Cozaar) 50 MG tablet Take 1 tablet by mouth Daily Active Losartan Potassi um Active metFORMIN hydrochloride 500 mg oral tablet (20 sources) Biguanide Start: 02-14-2018 take 1 tablet by mouth once daily metformin 500 mg Tab See Instructions, TAKE 1 TABLET BY MOUTH EVERY DAY, # 90 tab(s), Refills(s) 3, Pharmacy: [facility] [id number], 162, cm, 09/25/22 11:02:00 EDT, Height/Length Dosing, 138.5, kg, 09/25/22 11:02:00 EDT, Weight Dosing Start Date: 01/23/23 Status: Ordered Comment on above: Metformin Active 500 MG Oral Daily February 14, 2018 11:07am metoclopramide 10 mg oral tablet (3 sources) Dopamine-2 Receptor Antagonist Start: 10-17-2020 take 1 tablet by mouth every six hours as needed for nausea and vomiting metoclopramide (REGLAN) 10 MG tablet TAKE 1 TABLET ORALLY EVERY 6 HOURS NEEDED FOR NAUSEA AND VOMITING FOR 3 DAYS 02/19/2024 Active Comment on above: Take 10 mg by mouth every 6 hours as needed. minocycline 100 mg oral capsule (1 source) Tetracycline-clas s Drug take 1 capsule by mouth every twelve hours Minocycline HCl 100 MG 1 capsule Orally every 12 hrs Active montelukast 10 mg oral tablet (14 sources) Leukotriene Receptor Antagonist Start: 11-26-2020 take 1 tablet by mouth once daily montelukast (SINGULAIR) 10 mg tablet Take 10 mg by mouth once daily. 11/26/2020 Active Comment on above: Take 10 mg by mouth once daily. nebivolol 10 mg oral tablet (1 source) Start: 02-19-2024 take 1 tablet by mouth twice daily nebivolol 10 mg Tab 10 mg = 1 tab(s), Oral, BID, Refills(s) 0 Start Date: 02/19/24 Status: Ordered Nurtec (3 sources) Nurtec Active Nurte Not-Takin g nystatin 100 unt/mg topical powder (3 sources) Polyene Antifungal Start: 03-07-2024 nystatin (M YCOSTATIN) [id number] UNIT/GM powder Indications: Intertrigo Apply topically 3 times daily as needed for skin rash 30 g 5 03/07/2024 Active Start: 12-29-2019 nystatin (MYCO STATIN) powder APPLY TO AFFECTED AREA 4 TIMES A DAY NEEDED 12/29/2019 Active Comment on above: APPLY TO AFFECTED AR EA 4 TIMES A DAY NEEDED omeprazole 40 mg delayed release oral capsule (20 sources) Proton Pump Inhibitor Start: 06-26-2024 take 1 capsule by mouth once daily omeprazole 40 mg Cap-DR 40 mg = 1 cap(s), Oral, Daily, # 90 cap(s), Refills(s) 0, Pharmacy: [facility]/pharmacy #[id number], 161.5, cm, 06/26/24 10:09:00 EST, Height/Length Dosing, 131.1, kg, 06/26/24 10:09:00 EST, Weight Dosing Start Date: 06/26/24 Status: Ordered Start: 09-01-2022 omeprazole 20 mg Cap-DR 20 mg = 1 cap(s), Oral, Daily, Refills(s) 0, Control of stomach acid Start Date: 09/01/22 Status: Ordered Start: 04-01-2021 End: 09-15-2021 take 20 mg by mouth once daily in the morning Omeprazole Discontinued 20 MG PO Every morning April 01, 2021 12:00am September 15, 2021 1:43pm take 1 capsule by mo uth before mealtime omeprazole (PriLOSEC) [address] capsule Take 40 mg by mouth in the morning. Take before meals. Active ondansetron 4 mg disintegrating oral tablet (1 source) Serotonin-3 Receptor Antagonist Start: 02-19-2024 ondansetron (ZOFRAN-ODT) 4 MG disintegrating tablet DISSOLVE 1 TABLET UNDER THE TONGUE EVERY 4 HOURS NEEDED FOR NAUSEA/VOMITING FOR 3 DAYS 02/19/2024 Active Ozempic (3 sources) Ozempic Active OZEMPIC, 1 MG/DOSE, 4 MG/3ML SOPN sc injection (1 source) Start: 02-22-2024 OZEMPIC, 1 MG/DOSE, 4 MG/3ML SOPN sc injection 02/22/2024 Active PARoxetine hydrochloride 20 mg oral tablet (1 source) Serotonin Reuptake Inhibitor Start: 03-07-2024 take 1 tablet by mouth once daily PARoxetine (PAXIL) 20 MG tablet Indications: Menopausal syndrome (hot flashes) Take 1 tablet by mouth daily 30 tablet 5 03/07/2024 Active polyethylene glycol 3350 86162 mg powder for oral solution (10 sources) Osmotic Laxative Start: 09-01-2022 take 17 g by mouth once daily polyethylene glycol 3350 Oral Pwdr for Recon 17 gm, Oral, Daily, Refills(s) 0 Start Date: 09/01/22 Status: Ordered rimegepant 75 mg disintegrating oral tablet (20 sources) Start: 09-25-2022 take 1 tablet under the tongue once Nurtec ODT 75 mg oral tablet, disintegrating 75 mg = 1 tab(s), SubLingual, Once, at onset of migraine, Refills(s) 0, Migraine headache Start Date: 09/25/22 Status: Ordered Start: 09-15-2021 End: 04-07-2025 take 1 tablet by mouth once daily as needed Rimegepant Sulfate (Nurtec) 75 MG tablet dispersible Indications: Chronic migraine without aura with status migrainosus, not intractable (CMS/HCC) Take 75 mg by mouth Daily as needed (migraine) 8 tablet 11 04/07/2024 04/07/2025 Active 1 mg dose 1.5 ml semaglutide 1.34 mg/ml pen injector (8 sources) Start: 09-25-2022 inject 1 mg by subcutaneous injection every week Ozempic 2 mg/1.5 mL (1 mg dose) subcutaneous solution 1 mg, SubCutaneous, qWeek, 6 EA, Refill(s) 0, [facility]/pharmacy #[id number], 162, cm, 09/25/22 11:02:00 EDT, Height/Length Dosing, 138.5, kg, 09/25/22 11:02:00 EDT, Weight Dosing Start Date: 09/25/22 Status: Ordered semaglutide (Oze mpic, 0.25 or 0.5 MG/DOSE,) 2 MG/1.5ML solution pen-injector Active sertraline 25 mg oral tablet (2 sources) Serotonin Reuptake Inhibitor Start: 12-26-2019 take 1 tablet by mouth once daily in the morning sertraline (ZOLOFT) 25 mg tablet TAKE 1 TABLET BY MOUTH EVERY DAY IN THE MORNING 12/26/2019 Active Comment on above: TAKE 1 TABLET BY BONY TH EVERY DAY IN THE MORNING SUMAtriptan 100 mg oral tablet (7 sources) Serotonin-1b and Serotonin-1d Receptor Agonist Start: 10-04-2020 SUMAtriptan (IMITREX) 100 mg tablet TAKE 1 TAB AT ONSET OF MIGRAINE,MAY REPEAT IN 2 HRS MAX 2 TABS/DAY, 2 TIMES A WEEK 10/04/2020 Active SUMAtriptan Acti ve Comment on above: TAKE 1 TAB AT ONSET OF MIGRAINE,MAY REPEAT IN 2 HRS MAX 2 TABS/DAY, 2 TIMES A WEEK topiramate 50 mg oral tablet (20 sources) Start: 04-01-2021 End: 04-07-2024 take 1 tablet by mouth twice daily Topamax 50 mg Tab 50 mg = 1 tab(s), Oral, BID, Refills(s) 0, Migraine headache Start Date: 09/01/22 Status: Ordered Start: 12-01-2020 take 1 tablet by bony th twice daily topiramate (TOPAMAX) 25 mg tablet Take 25 mg by mouth twice daily. 12/01/2020 Active take 1 tablet by bony th every twenty-four hours Topamax 50 MG 1 tablet Orally Once a day Active Comment on above: Take 25 mg by mouth twice daily. verapamil hydrochloride 180 mg extended release oral tablet (12 sources) Calcium Channel Pranay Start: 3 End: take 1 tablet by mouth once daily verapamil SR (Calan SR) 180 MG ER tablet Take 1 tablet by mouth Daily 12/20/2022 04/07/2024 Discontinued (Therapy completed) Start: 04-01-2021 End: 09-15-2021 Verapamil Discontinued 120 M G PO 1700 April 01, 2021 12:00am September 15, 2021 2:19pm take 1 tablet by bony th every eight hours Verapamil HCl 120 MG 1 tablet Orally Three times a day Not-Taking Vitamin D3 (1 source) Vitamin D3 Activ e Completed/Discontinued Medications Medication Drug Class(es) Dates Sig (Normalized) Sig (Original) benzonatate 100 mg oral capsule (4 sources) Non-narcotic Antitussive Start: 02-14-2018 End: 02-19-2018 take 1 capsule by mouth three times daily Benzonatate (Tessalon Perles) 100 mg capsule Discontinued 100 MG PO Three times daily 20 5 February 14, 2018 12:57pm February 19, 2018 12:01am DULoxetine 30 mg delayed release oral capsule (17 sources) Serotonin and Norepinephrine Reuptake Inhibitor Start: 04-07-2024 End: 06-12-2024 take 2 capsules by mouth once daily DULoxetine (Cymbalta) [address] capsule Indications: Chronic migraine without aura with status migrainosus, not intractable (CMS/HCC) Take 2 capsules (60 mg) by mouth Daily Do not crush or chew. 30 capsule 2 04/07/2024 06/12/2024 Discontinued (Side effects) Start: 04-01-2021 take 60 mg by mouth once daily at bedtime Duloxetine Active 60 MG PO Daily at bedtime April 01, 2021 12:00am End: 04-07-2024 take 1 capsule by mouth once daily DULoxetine (Cymbalta) [address] capsule Take 60 mg by mouth Daily Do not crush or chew. 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; Translations: [Asthma] Onset: 10-31-1909-01-2022 Chronic Cardiac dysrhythmias (4 sources) Atrial fibrillation; Translations: [Paroxysmal atrial fibrillation] Onset: 12-14-1910-30-2023 Chronic Diabetes mellitus with complications (1 source) Type 2 diabetes mellitus with unspecified complications; Translations: [TYPE 2 DM W/UNS COMPLICATIONS] Onset: 12-03-19 Chronic Diabetes mellitus without complication (13 sources) Type 2 diabetes mellitus; Translations: [Type 2 diabetes mellitus without complication] Onset: 12-14-1909-01-2022 Chronic Disorders of lipid metabolism (1 source) Pure hypercholesterolemia, unspecified; Translations: [PURE HYPERCHOLESTEROLEMIA UNSPEC] Onset: 12-03-19 Chronic Esophageal disorders (6 sources) Gastroesophageal reflux disease without esophagitis; Translations: [Gastro-esophageal reflux disease without esophagitis] Onset: 10-18-19 Chronic Essential hypertension (16 sources) Hypertensive disorder; Translations: [Essential hypertension] Onset: 12-19-1909-25-2022 Chronic Headache; including migraine (13 sources) Migraine without aura, not refractory ; Translations: [Migraine without aura, not intractable, without status migrainosus] Onset: 10-25-19 24 10-25-2023 Chronic Headache; including migraine (6 sources) Headache 09-01-2022 Episodic Hemorrhoids (6 sources) Hemorrhoids 09-01-2022 Episodic Hypertension with complications and secondary hypertension (2 sources) Hypertensive heart disease without heart failure; Translations: [Hypertensive heart disease without heart failure] Onset: 12-14-19 Chronic Joint disorders and dislocations; trauma-related (6 sources) Derangement of knee 09-01-2022 Chronic Nutritional deficiencies (7 sources) Deficiency of vitamin D3; Translations: [Vitamin D deficiency, unspecified] Onset: 12-03-1909-01-2022 Chronic Osteoarthritis (7 sources) Osteoarthritis; Translations: [Osteoarthritis of left knee joint] Onset: 10-09-1909-01-2022 Chronic Comment on above: idiopathic Other and unspecified benign neoplasm (3 sources) Polyp of colon; Translations: [Polyp of colon] Onset: 11-09-19 Episodic Other circulatory disease (12 sources) Raynaud's phenomenon 09-01-2022 Chronic Comment on above: isolated, primary Other circulatory disease (1 source) Wheeze - rhonchi 06-26-2024 Episodic Other connective tissue disease (6 sources) Thumb joint painful on movement 09-25-2022 Episodic Other connective tissue disease (2 sources) Pain in right hand Episodic Other connective tissue disease (2 sources) Trigger thumb, right thumb Episodic Other connective tissue disease (1 source) Disorder of muscle; Translations: [Other specified disorders of muscle] Onset: 10-18-19 Episodic Other connective tissue disease (4 sources) Pelvic floor dysfunction 10-18-2023 Episodi c Other gastrointestinal disorders (1 source) Constipation by outlet obstruction; Translations: [Outlet dysfunction constipation] Onset: 10-18-19 Episodic Other gastrointestinal disorders (4 sources) Constipation 10-18-2023 Episodic Other gastrointestinal disorders (1 source) Constipation, unspecified; Translations: [Constipation, unspecified] Onset: 11-09-19 Episodic Other inflammatory condition of skin (6 sources) Psoriasis 09-01-2022 Chronic Other inflammatory condition of skin (1 source) Pruritus of vulva; Translations: [Pruritus vulvae] 03-07-2024 Episodic Other inflammatory condition of skin (1 source) Pruritus vulvae; Translations: [Pruritus vulvae] Onset: 03-07-20 Episodic Other liver diseases (6 sources) Steatosis of liver 09-01-2022 Chronic Other liver diseases (1 source) Fatty (change of) liver, not elsewhere classified; Translations: [FATTY CHANGE LIVER NEC] Onset: 12-03-19 Chronic Other lower respiratory disease (1 source) Apnea; Translations: [Apnea, not elsewhere classified] Onset: 10-18-19 Episodic Other nervous system disorders (4 sources) Carpal tunnel syndrome; Translations: [Carpal tunnel syndrome, unspecified upper limb] 04-14-2021 Chronic Other nervous system disorders (4 sources) Ulnar nerve entrapment at elbow; Translations: [Lesion of ulnar nerve, unspecified upper limb] 04-14-2021 Chronic Other nervous system disorders (12 sources) Lesion of ulnar nerve, left upper limb; Translations: [Cubital tunnel syndrome on left] Onset: 03-23-20 Resolved : 07-29-19 Chronic Other nervous system disorders (14 sources) Carpal tunnel syndrome of left wrist; Translations: [Carpal tunnel syndrome, left upper limb] Onset: 10-25-1910-25-2023 Chronic Other nervous system disorders (5 sources) Carpal tunnel syndrome, left upper limb; Translations: [Left carpal tunnel syndrome G56.02] Onset: 03-23-20 Resolved : 07-29-19 Chronic Other nervous system disorders (10 sources) Carpal tunnel syndrome of right wrist; Translations: [Carpal tunnel syndrome, right upper limb] Onset: 10-25-19 24 10-25-2023 Chronic Other nervous system disorders (1 source) Carpal tunnel syndrome, right upper limb Chronic Other nervous system disorders (13 sources) Ulnar neuropathy; Translations: [Lesion of ulnar nerve, unspecified upper limb] Onset: 10-25-19 24 09-01-2022 Chronic Comment on above: left arm Other nervous system disorders (8 sources) Chronic pain syndrome; Translations: [Chronic pain syndrome] Onset: 04-24-20 19 01-29-2020 Chronic Other nervous system disorders (11 sources) Ulnar neuropathy of left arm; Translations: [Lesion of ulnar nerve, left upper limb] Onset: 10-25-19 24 10-25-2023 Chronic Other nervous system disorders (7 sources) Bilateral carpal tunnel syndrome; Translations: [Carpal tunnel syndrome, bilateral upper limbs] Onset: 10-25-19 24 10-25-2023 Chronic Other nervous system disorders (4 sources) Pain in limb; Translations: [Other acute postprocedural pain] 04-14-2021 Episodic Other nervous system disorders (2 sources) Anesthesia of skin Onset: 07-29-19 Resolved : 07-29-19 Episodic Other non-traumatic joint disorders (4 sources) Pain in unspecified hip; Translations: [PAIN IN UNSPECIFIED HIP] Onset: 10-28-19 Episodic Other nutritional; endocrine; and metabolic disorders (6 sources) Metabolic syndrome X 09-01-2022 Chronic Other nutritional; endocrine; and metabolic disorders (7 sources) Morbid obesity; Translations: [Morbid (severe) obesity due to excess calories] Onset: 10-18-1909-01-2022 Chronic Other nutritional; endocrine; and metabolic disorders (1 source) Metabolic syndrome; Translations: [METABOLIC SYNDROME] Onset: 12-03-19 Chronic Other nutritional; endocrine; and metabolic disorders (7 sources) Body mass index 40+ - severely obese; Translations: [Morbid (severe) obesity due to excess calories] Onset: 12-11-1912-10-2020 Chronic Other nutritional; endocrine; and metabolic disorders (8 sources) Obesity; Translations: [Other obesity due to excess calories] Onset: 10-25-19 Chronic Other nutritional; endocrine; and metabolic disorders (2 sources) Obesity caused by energy imbalance 11-14-2023 Chronic Pathological fracture (1 source) Pathological fracture; Translations: [Pathological fracture, other site, initial encounter for fracture] 01-27-2021 Episodic Residual codes; unclassified (6 sources) Obstructive sleep apnea (adult) (pediatric); Translations: [OBSTRUCTIVE SLEEP APNEA] Onset: 12-28-19 Chronic Residual codes; unclassified (1 source) Idiopathic hypersomnia with long sleep time; Translations: [IDIO HYPERSOMNIA W/LONG SLEEP TIME] Onset: 12-03-19 Chronic Residual codes; unclassified (7 sources) Obstructive sleep apnea syndrome; Translations: [Obstructive sleep apnea (adult) (pediatric)] Onset: 10-25-1910-25-2023 Chronic Residual codes; unclassified (7 sources) Hypersomnia; Translations: [Hypersomnia, unspecified] Onset: 10-25-1910-25-2023 Chronic Residual codes; unclassified (4 sources) Other specified postprocedural states Onset: 05-20-20 Resolved : 07-29-19 Episodic Residual codes; unclassified (2 sources) Acquired absence of organ; Translations: [Acquired absence of other specified parts of digestive tract] Onset: 10-18-19 Episodic Residual codes; unclassified (2 sources) Pelvic organ finding; Translations: [Acquired absence of both cervix and uterus] Onset: 10-18-19 Episodic Residual codes; unclassified (1 source) Patient encounter status; Translations: [Other specified personal risk factors, not elsewhere classified] 03-07-2024 Episodic Residual codes; unclassified (1 source) Other specified personal risk factors, not elsewhere classified; Translations: [Other specified personal risk factors, not elsewhere classified] Onset: 03-07-20 Episodic Spondylosis; intervertebral disc disorders; other back problems (16 sources) Arthropathy of lumbar facet joint; Translations: [Spondylosis without myelopathy or radiculopathy, lumbar region] Onset: 10-25-1902-02-2021 Chronic Spondylosis; intervertebral disc disorders; other back problems (13 sources) Sciatica; Translations: [Low back pain] Onset: 04-24-2009-01-2022 Episodic Substance-related disorders (10 sources) Smoker; Translations: [Nicotine dependence, cigarettes, with unspecified nicotine-induced disorders] Onset: 10-28-1909-25-2022 Chronic Unclassified (2 sources) COUGH, UNSPECIFIED; Translations: [COUGH, UNSPECIFIED] Onset: 11-29-19 Unclassified (1 source) CONTACT W/AND (SUSP) EXPOS COVID-19; Translations: [CONTACT W/AND (SUSP) EXPOS COVID-19] Onset: 11-24-19 Unclassified (5 sources) Patient encounter status 09-25-2023 Unclassified (1 source) Supraventricular tachycardia, unspecified; Translations: [Supraventricular tachycardia, unspecified] Onset: 04-15-20 Past or Other Problems Problem Classification Problem Date Documented Date Episodic/Chronic Cardiac dysrhythmias (2 sources) Palpitations; Translations: [Palpitations] Onset: 11-13-2022 Episodic Nonspecific chest pain (2 sources) Other chest pain; Translations: [Other chest pain] Onset: 12-14-2023 Episodic Other connective tissue disease (1 source) Pain in right foot; Translations: [Pain in right foot] Onset: 11-23-2019 01-29-2020 Episodic Other lower respiratory disease (2 sources) Other forms of dyspnea; Translations: [Other forms of dyspnea] Onset: 12-14-2023 Episodic Other nervous system disorders (7 sources) Paresthesia; Translations: [Paresthesia of skin] Onset: 10-25-2023 10-25-2023 Episodic Other screening for suspected conditions (not mental disorders or infectious disease) (14 sources) Encounter for screening mammogram for malignant neoplasm of breast; Translations: [Encounter for screening for malignant neoplasm of cervix] Onset: 11-30-2021 Episodic Other upper respiratory infections (1 source) Acute upper respiratory infection, unspecified; Translations: [ACUTE UP RESPIRATORY INFECTION UNS] Onset: 11-28-2021 Episodic Residual codes; unclassified (7 sources) Insomnia; Translations: [Insomnia, unspecified] Onset: 10-25-2023 10-25-2023 Episodic Residual codes; unclassified (2 sources) Inadequate sleep hygiene; Translations: [Inadequate sleep hygiene] Onset: 12-14-2023 Episodic Unclassified (1 source) COUGH, UNSPECIFIED; Translations: [COUGH, UNSPECIFIED] Onset: 11-25-2021 Unclassified (1 source) Supraventricular tachycardia, unspecified; Translations: [Supraventricular tachycardia, unspecified] Onset: 04-15-2024 Results Test Name Value Interpretation Reference Range Facil ity Ambulatory Visit Summaryon 0 06-26-2024 Ambulatory Visit Summary Ambulatory Visit Summary JOVANA XIE :1970 Visit Date:06/26/2024 Ambulatory Visit Instructions Your Diagnosis Afib Controlled type 2 diabetes mellitus without complication, without long-term current use of insulin Chronic GERD Smoker Morbid obesity with BMI of 50.0-59.9, adult Body mass index [BMI] 50.0-59.9, adult Rhonchi at right lung base These Are Your Goals Reduce Fall Risk - Not met Interventions: Learn About Home Safety to Prevent Falls or Injury - Not done Review educational material - Not done Reduce and/or prevent episodes of breakthrough afb and avoid complications - Not met Interventions: Keep follow up appts and testing with Cardiology as schedued - Progressing Keep follow up appts with Dr. Merritt for treatment of sleep apnea - Not done Monitor HR and learn symptoms of afib to reprot to provider - Progressing Review educational materials - Done Take medications as prescribed - Not done Prevent complications of diabetes - Not met Interventions: Complete daily foot checks and report any abnormal findings to provider - Not done Consult with tooler - Not done Review educational material - Done Try to increase daily activity levels when back pain allows - Not done take medications as prescribed - Progressing Maintain therapeutic BP and prevent complications - Not met Interventions: Monitor BP daily and learn when to report to provider - Progressing Review educational material - Done Take Medications as Prescribed - Progressing limit salt intake, avoid foods high in salt such as: pickles, chips, olives, or adding extra salt Decrease back pain and maintain/ improve mobility - Not met Interventions: Partake in low impact activity 2-3 days per week (as tolerated) such as: swim, yoga, walk... - Not done Use heating pad or icepack as needed for soothing comfort - Progressing complete daily stretching exercises - Not done Trend weight down to improve overall health - Not met Interventions: Consult with tooler - Not done eat a well balanced diet rich in protein and avoid foods high in saturated fat - Not done increase low impact exercise as tolerated - Not done Tests Performed XR Chest 2 Views -- Results Pending -- Please visit your patient portal for your results or contact your primary care physician. Your Care Team Attending Physician - Melissa Erazo MD Primary Care Physician - Melissa Erazo MD. This Is Your Medications List omeprazole (omeprazole 40 mg Aidan-) Contact prescribing physician if questions or concerns albuterol (Albuterol (Eqv-Ventolin HFA) 90 mcg/inh inhalation aerosol) apixaban (Eliquis 5 mg oral tablet) flecainide (flecainide 100 mg Tab) metformin (metformin 500 mg Tab) nebivolol (nebivolol 10 mg Tab) rimegepant (Nurtec ODT 75 mg oral tablet, disintegrating) semaglutide (Ozempic (1 mg dose) 4 mg/3 mL subcutaneous solution) [Image Removed: STOP]Stop taking these medications famotidine (Pepcid 20 mg Tab) Procedures Performed Colonoscopy (10/22/2023), Esophagogastroduode noscopy (10/22/2023), Cardiac catheter (2005), MANDI BSO - Total abdominal hysterectomy and bilateral salpingo-oophorecto my (01/15/2004), Arthroscopy, History of lumbar spine surgery, Tonsillectomy and adenoidectomy. Discharge Vitals Temperature (Oral) 36.8 ???C Heart Rate (Peripheral) 90 Respiratory Rate 22 Blood Pressure 136/84 Height 161.5 cm Height 64 in Weight 131.1 kg Weight 289.026 lb BMI 50.26 What to do next Scheduled Follow-Up Appointments 2024 8:00 AM EDT With: Where: [address] [id number]- 2024 8:45 AM EDT With: Freeman AIKEN, Melissa Mary Where: [address] [address]- Medications What How Much When Instructions New omeprazole (omeprazole 40 mg Cap-DR) 1 Capsules By Mouth Every day Pickup at [facility]/pharmacy #[id number] Unchanged albuterol (Albuterol (Eqv-Ventolin HFA) 90 mcg/ inh inhalation aerosol) 2 Puffs Inhalation Every 6 hours as needed for Shortness of breath or wheezing Contact prescribing physician if questions or concerns Unchanged apixaban (Eliquis 5 mg oral tablet) 1 Tablets By Mouth 2 times a day Contact prescribing physician if questions or concerns Unchanged flecainide (flecainide 100 mg Tab) 1 Tablets By Mouth Every 12 hours Contact prescribing physician if questions or concerns Unchanged metformin (metformin 500 mg Tab) See instructions TAKE 1 TABLET BY MOUTH EVERY DAY Contact prescribing physician if questions or concerns Unchanged nebivolol (nebivolol 10 mg Tab) 1 Tablets By Mouth 2 times a day Contact prescribing physician if questions or concerns Unchanged rimegepant (Nurtec ODT 75 mg oral tablet, disintegrating) 1 Tablets Sublingual Once at onset of (more content not included)... Normal [facility] CBC w/ Auto Diffon 5 Basophils/100 WBC (Bld) 0.4 % Normal 0.0-2.0 [facility] Comment on above: Performed By: #### 2 [id number] #### [facility] [address] [place] [address] Basophils/Leukocyt es Auto (Bld) [Pure # fraction] 0.0 E9/L Normal 0.0-0.2 [facility] Comment on above: Performed By: #### 2 [id number] #### [facility] [address] [place] [address] Eosinophils (Bld) [#/Vol] 0.2 E9/L Normal 0.0-0.5 [facility] Comment on above: Performed By: #### 2 [id number] #### [facility] [address] [place] [address] Eosinophils/100 WBC (Bld) 2.5 % Normal 0.0-8.0 [facility] Comment on above: Performed By: #### 2 [id number] #### [facility] [address] [place] [address] Erythrocyte distribution width (RBC) [Ratio] 14.6 % High 10.9-14.2 [facility] Comment on above: Performed By: #### 2 [id number] #### [facility] [address] [place] [address] Hematocrit (Bld) [Volume fraction] 47.5 % High 34.0-46.0 [facility] Comment on above: Performed By: #### 2 [id number] #### [facility] [address] [place] [address] Hemoglobin (Bld) [Mass/Vol] 16.1 g/dL High 12.0-16.0 [facility] Comment on above: Performed By: #### 2 [id number] #### [facility] [address] [place] [address] Lymphocytes (Bld) [#/Vol] 2.6 E9/L Normal 1.0-4.0 [facility] Comment on above: Performed By: #### 2 [id number] #### [facility] [address] [place] [address] Lymphocytes/100 WBC (Bld) 27.5 % Normal 14.0-50.0 [facility] Comment on above: Performed By: #### 2 [id number] #### [facility] [address] [place] [address] MCH (RBC) [Entitic mass] 29.8 pg Normal 27.0-34.0 [facility] Comment on above: Performed By: #### 2 [id number] #### [facility] [address] [place] [address] MCHC (RBC) [Mass/Vol] 34.0 g/dL Normal 31.4-36.0 [facility] Comment on above: Performed By: #### 2 [id number] #### [facility] [address] [place] [address] MCV (RBC) [Entitic vol] 87.6 fL Normal 80.0-100.0 [facility] Comment on above: Performed By: #### 2 [id number] #### [facility] [address] [place] [address] Monocytes (Bld) [#/Vol] 0.8 E9/L Normal 0.2-1.0 [facility] Comment on above: Performed By: #### 2 [id number] #### [facility] [address] [place] [address] Neutrophils (Bld) [#/Vol] 5.7 E9/L Normal 2.0-7.5 [facility] Comment on above: Performed By: #### 2 [id number] #### [facility] [address] [place] [address] Neutrophils/100 WBC (Bld) 61.1 % Normal 36.0-75.0 [facility] Comment on above: Performed By: #### 2 [id number] #### [facility] [address] [place] [address] Platelet 298.0 E9/L Normal 150.0-500.0 [facility] Comment on above: Performed By: #### 2 [id number] #### [facility] [address] [place] [address] Platelet mean volume (Bld) [Entitic vol] 9.6 fL Normal 6.4-10.8 [facility] Comment on above: Performed By: #### 2 [id number] #### [facility] [address] [place] [address] RBC (Bld) [#/Vol] 5.4 E12/L Normal 4.3-5.9 [facility] Comment on above: Performed By: #### 2 [id number] #### [facility] [address] [place] [address] WBC corrected for nucl RBC Auto (Bld) [#/Vol] 9.3 E9/L Normal 4.0-11.0 [facility] Comment on above: Performed By: #### 2 [id number] #### [facility] [address] [place] [address] CHEMISTRYOrdered By: SYSTEM SYSTEM on 06-26-2024 Albumin [Mass/Vol] 4.2 g/dL Normal 3.3 - 5.0 gm/dL R emisol Chem Albumin DL <= 20 mg/L (U) [Mass/Vol] 7.3 mg/dL High 0.0 - 1.9 mg/dL Rem[facility] Albumin/Globulin [Mass ratio] 1.5 {ratio} Normal 1.1 - 2.2 [facility] ALP [Catalytic activity/Vol] 106 [iU]/d High 21 - 98 Int._Unit/L [facility] ALT No additional P-5'-P [Catalytic activity/Vol] 24 [iU]/d Normal 6 - 46 Int._Unit/L [facility] Anion gap [Moles/Vol] 10 mmol/L Normal 6 - 16 mEq/L [facility] AST [Catalytic activity/Vol] 18 [iU]/d Normal 5 - 43 Int._Unit/L [facility] Bilirubin [Mass/Vol] 0.5 mg/dL Normal 0.0 - 1.1 mg/dL [facility] Calcium [Mass/Vol] 10.0 mg/dL Normal 8.9 - 11.1 mg/dL [facility] Chloride [Moles/Vol] 105 mmol/L Normal 101 - 111 mmol/L [facility] Cholesterol [Mass/Vol] 228 mg/dL High 120 - 200 mg/dL [facility] Cholesterol in HDL [Mass/Vol] 41 mg/dL Invalid Interpretation Code [facility] Comment on above: Result Comment: '>= 60 LOW RISK' '<= 40 HIGH RISK' Cholesterol in LDL [Mass/Vol] 169 mg/dL High <=129mg/dL [facility] Cholesterol in VLDL [Mass/Vol] 42 mg/dL High 7 - 40 mg/dL [facility] CO2 [Moles/Vol] 29 mmol/L Normal 21 - 31 mmol/L Remis ol Chem Creatinine [Mass/Vol] 1.0 mg/dL Normal 0.5 - 1.3 mg/dL [facility] eGFR 67 mL/min/1.73 m2 Normal >=59mL/min/1.73 m2 [facility] Globulin (S) [Mass/Vol] 2.8 g/dL Normal 1.4 - 4.0 gm/dL [facility] Glucose [Mass/Vol] 99 mg/dL Normal 55 - 199 mg/dL Re misol Chem Potassium [Moles/Vol] 4.3 mmol/L Normal 3.5 - 5.3 mmol/L [facility] Protein [Mass/Vol] 7.0 g/dL Normal 6.0 - 7.8 gm/dL R emisol Chem Sodium [Moles/Vol] 140 mmol/L Normal 135 - 145 mmol/L [facility] Triglyceride [Mass/Vol] 209 mg/dL High <=149mg/dL [facility] Urea nitrogen [Mass/Vol] 21 mg/dL Normal 5 - 21 mg/dL [facility] Urea nitrogen/Creatinin e [Mass ratio] 21 mg/mg High 10 - 20 [facility] CHEMISTRYOrdered By: Braydon Hanson on 06-26-2024 HbA1c (Bld) [Mass fraction] 5.6 % Normal <=5.9% [facility] ChemAutoSS CMPon 06-26-2024 Albumin [Mass/Vol] 4.2 g/dL Normal 3.3-5.0 [facility] Comment on above: Performed By: #### 2 [id number] #### [facility] [address] [place] [address] Albumin/Globulin (S) [Mass conc ratio] 1.5 Normal 1.1-2.2 [facility] Comment on above: Performed By: #### 2 [id number] #### [facility] [address] [place] [address] ALP [Catalytic activity/Vol] 106 Int._Unit/L High 21-98 [facility] Comment on above: Performed By: #### 2 [id number] #### [facility] [address] [place] [address] ALT No additional P-5'-P [Catalytic activity/Vol] 24 Int._Unit/L Normal 6-46 [facility] Comment on above: Performed By: #### 2 [id number] #### [facility] [address] [place] [address] Anion gap [Moles/Vol] 10 mmol/L Normal 6-16 [facility] Comment on above: Performed By: #### 2 [id number] #### [facility] [address] [place] [address] AST [Catalytic activity/Vol] 18 Int._Unit/L Normal 5-43 [facility] Comment on above: Performed By: #### 2 [id number] #### [facility] [address] [place] [address] Bilirubin [Mass/Vol] 0.5 mg/dL Normal 0.0-1.1 [facility] Comment on above: Performed By: #### 2 [id number] #### [facility] [address] [place] [address] Calcium [Mass/Vol] 10.0 mg/dL Normal 8.9-11.1 [facility] Comment on above: Performed By: #### 2 [id number] #### [facility] [address] [place] [address] Chloride [Moles/Vol] 105 mmol/L Normal 101-111 [facility] Comment on above: Performed By: #### 2 [id number] #### [facility] [address] [place] [address] CO2 [Moles/Vol] 29 mmol/L Normal 21-31 [facility] Comment on above: Performed By: #### 2 [id number] #### [facility] [address] [place] [address] Creatinine [Mass/Vol] 1.0 mg/dL Normal 0.5-1.3 [facility] Comment on above: Performed By: #### 2 [id number] #### [facility] [address] [place] [address] Globulin (S) [Mass/Vol] 2.8 g/dL Normal 1.4-4.0 [facility] Comment on above: Performed By: #### 2 [id number] #### [facility] [address] [place] [address] Glucose [Mass/Vol] 99 mg/dL Normal 55-199 [facility] Comment on above: Performed By: #### 2 [id number] #### [facility] [address] [place] [address] Potassium [Moles/Vol] 4.3 mmol/L Normal 3.5-5.3 [facility] Comment on above: Performed By: #### 2 [id number] #### [facility] [address] [place] [address] Protein [Mass/Vol] 7.0 g/dL Normal 6.0-7.8 [facility] Comment on above: Performed By: #### 2 [id number] #### [facility] [address] [place] [address] Sodium [Moles/Vol] 140 mmol/L Normal 135-145 [facility] Comment on above: Performed By: #### 2 [id number] #### [facility] [address] [place] [address] Urea nitrogen [Mass/Vol] 21 mg/dL Normal 5-21 [facility] Comment on above: Performed By: #### 2 [id number] #### [facility] [address] [place] [address] Urea nitrogen/Creatinin e [Mass ratio] 21 No Units High 10-20 [facility] Comment on above: Performed By: #### 2 [id number] #### [facility] [address] [place] [address] Family Medicine Office/Clini c Noteon 06-26-2024 Family Medicine Office/Clinic Note Family Medicine Office/Clinic Note Chief Complaint Persistent right-sided chest pain and concern of upper respiratory symptoms. HPI Staff Jovana is a 54 year old female presenting with 3 month f/u Do you have any of the following symptoms? Foot Exam: its been awhile Eye Exam: last couple years Last A1C: September 25 2023 (5.2) Statin: She would like to switch Famotidine to omeprazole... because she is having to have take 2-3 Famotidine but when she took omeprazole she only had to take 1 History of Present Illness The patient is a 54-year-old female presenting with persistent right-sided chest pain and concern of upper respiratory symptoms. She reported experiencing the pain two weeks ago following an upper respiratory check, not associated with increased exertion or activity changes. The pain persists and has been described as localized to the right side, with an unclear source potentially due to a muscle strain or rib issue. She has a history of chronic GERD, previously managed with omeprazole, which alleviated symptoms but was switched to famotidine. Current symptoms might necessitate a referral for an esophagogastroduode noscopy (EGD) due to suboptimal control with the new medication. There are ongoing concerns about fluid in the lungs, prompting the need for further imaging. She manages type 2 diabetes and reports stable blood sugar control, albeit without regular home monitoring. The diabetes remains controlled without complications or the use of insulin. She confirmed the use of anticoagulation therapy with Eliquis for atrial fibrillation and acknowledged the importance of fall risk. - Discussed potential use of omeprazole and follow-up EGD for GERD management. - Advised on the potential use of Dexcom for glucose monitoring, pending insurance approval. - Reminded about the importance of monitoring for head injuries due to anticoagulant use. - Advised on obtaining a chest X-ray to rule out pneumonia or other respiratory issues. - Recommended discussion with a toy designer about persistent lung issues. Review of Systems PHQ Score Initial Depression Screen Score: 0 SCORE Physical Exam Vitals & Measurements T: 36.8 ???C(Oral) HR: 90(Peripheral) RR: 22 BP: 136/84 SpO2: 90% HT: 64 in HT: 161.5 cm WT: 131.1 kg WT: 289.026 lb BMI: 50.26 General: alert, no acute distress ENMT: oral mucosa moist Cardiovascular: Regular rate and rhythm, normal peripheral perfusion Respiratory: Lungs with crackles on right lower lung, respirations non labored Extremities: no deformity, no trauma Neurological: oriented x 4, level of consciousness appropriate for age, CN II-XII intact, motor strength equal & normal bilaterally, speech normal Abdomen: Soft, Non-tender, Non-distended, + Bowel sounds Assessment/Plan 1. Afib (I48.91: Unspecified atrial fibrillation) Continue current anticoagulation therapy with Eliquis. Emphasize fall prevention and immediate evaluation if head trauma occurs. Ordered: CBC w/ Auto Diff Comprehensive Metabolic Panel [facility] Internal Ambulatory Referral HgbA1c Lipid Panel Microalbumin Level Urine 2. Controlled type 2 diabetes mellitus without complication, without long-term current use of insulin (E11.9: Type 2 diabetes mellitus without complications) Maintain current diabetes regime; Recheck labs at this time. Ordered: CBC w/ Auto Diff Comprehensive Metabolic Panel [facility] Internal Ambulatory Referral HgbA1c Lipid Panel Microalbumin Level Urine 3. Chronic GERD (K21.9: Gastro-esophageal reflux disease without esophagitis) Transition back to omeprazole; if symptoms persist, proceed with EGD referral. Ordered: CBC w/ Auto Diff Comprehensive Metabolic Panel [facility] Internal Ambulatory Referral HgbA1c Lipid Panel Microalbumin Level Urine 4. Smoker (F17.200: Nicotine dependence, unspecified, uncomplicated) Encourage smoking cessation strategies and consider supportive therapies or resources. Ordered: CBC w/ Auto Diff Comprehensive Metabolic Panel [facility] Internal Ambulatory Referral HgbA1c Lipid Panel Microalbumin Level Urine 5. Morbid obesity with BMI of 50.0-59.9, adult (E66.01: Morbid (severe) obesity due to excess calories) Address lifestyle modifications, continue monitoring BMI, and equal opportunity counselor on weight management strategies. Ordered: CBC w/ Auto Diff Comprehensive Metabolic Panel [facility] Internal Ambulatory Referral HgbA1c Lipid Panel Microalbumin Level Urine 6. Body mass index [BMI] 50.0-59.9, adult (Z68.43: Body mass index [BMI] 50.0-59.9, adult) Monitor weight status and consider dietary and lifestyle interventions for managing obesity. Ordered: CBC w/ Auto Diff Comprehensive Metabolic Panel HgbA1c Lipid Panel Microalbumin Level Urine 7. Rhonchi at right lung base (R09.89: Other specified symptoms and signs involving the circulatory and respiratory systems) Found on exam. With the pain pt need a CXR. Will have patient follow up with kiki briceño (more content not included)... Normal [facility] Comment on above: Result Comment: Elec tronically Signed By: Freeman AIKEN, Melissa Mary\.br\Date and Time Signed: 06/26/24 10:28 EST HEMATOLOGYOrdered By: SYSTEM SYSTEM on 06-26-2024 Basophils/100 WBC (Bld) 0.4 % Normal 0.0 - 2.0 % Remisol Heme Basophils/Leukocyt es Auto (Bld) [Pure # fraction] 0.0 E9/L Normal 0.0 - 0.2 E9/L Remisol Heme Eosinophils (Bld) [#/Vol] 0.2 E9/L Normal 0.0 - 0.5 E9/L Remisol Heme Eosinophils/100 WBC (Bld) 2.5 % Normal 0.0 - 8.0 % Remisol Heme Erythrocyte distribution width (RBC) [Ratio] 14.6 % High 10.9 - 14.2 % Remisol Heme Hematocrit (Bld) [Volume fraction] 47.5 % High 34.0 - 46.0 % Remisol Heme Hemoglobin (Bld) [Mass/Vol] 16.1 g/dL High 12.0 - 16.0 gm/dL Remisol Heme Lymphocytes (Bld) [#/Vol] 2.6 E9/L Normal 1.0 - 4.0 E9/L Remisol Heme Lymphocytes/100 WBC (Bld) 27.5 % Normal 14.0 - 50.0 % Remisol Heme MCH (RBC) [Entitic mass] 29.8 pg Normal 27.0 - 34.0 pg Remisol Heme MCHC (RBC) [Mass/Vol] 34.0 g/dL Normal 31.4 - 36.0 gm/dL Remisol Heme MCV (RBC) [Entitic vol] 87.6 fL Normal 80.0 - 100.0 fL Remisol Heme Monocytes (Bld) [#/Vol] 0.8 E9/L Normal 0.2 - 1.0 E9/L Remisol Heme Monocytes/100 WBC (Bld) 8.5 % Normal 4.0 - 14.0 % Remisol Heme Neutrophils (Bld) [#/Vol] 5.7 E9/L Normal 2.0 - 7.5 E9/L Remisol Heme Neutrophils/100 WBC (Bld) 61.1 % Normal 36.0 - 75.0 % Remisol Heme Platelet 298.0 E9/L Normal 150.0 - 500.0 E9/L Remiso l Heme Platelet mean volume (Bld) [Entitic vol] 9.6 fL Normal 6.4 - 10.8 fL Remisol Heme RBC (Bld) [#/Vol] 5.4 E12/L Normal 4.3 - 5.9 E12/L Re misol Heme WBC corrected for nucl RBC Auto (Bld) [#/Vol] 9.3 E9/L Normal 4.0 - 11.0 E9/L Remisol Heme [id number] 06-26-2024 HbA1c (Bld) [Mass fraction] 5.6 % Normal <=5.9 [facility] Comment on above: Performed By: #### [id number] #### [facility] [address] [place] [address] Lipid Panelon 06-26-2024 Cholesterol [Mass/Vol] 228 mg/dL High 120-200 [facility] Comment on above: Performed By: #### [id number] #### [facility] [address] [place] [address] Cholesterol in HDL [Mass/Vol] 41 mg/dL Invalid Interpretation Code [facility] Comment on above: Result Comment: '>= 60 LOW RISK' '<= 40 HIGH RISK' Performed By: #### 2 [id number] #### [facility] [address] [place] [address] Cholesterol in LDL [Mass/Vol] 169 mg/dL High <=129 [facility] Comment on above: Performed By: #### 2 [id number] #### [facility] [address] [place] [address] Cholesterol in VLDL [Mass/Vol] 42 mg/dL High 7-40 [facility] Comment on above: Performed By: #### 2 [id number] #### [facility] [address] [place] [address] Triglyceride [Mass/Vol] 209 mg/dL High <=149 [facility] Comment on above: Performed By: #### 2 [id number] #### [facility] [address] [place] [address] U Microalbon 06-26-2024 Albumin DL <= 20 mg/L (U) [Mass/Vol] 7.3 mg/dL High 0.0-1.9 [facility] Comment on above: Performed By: #### 1 [id number] #### [facility] [address] [place] [address] eGFRon 06-26-2024 eGFR 67 mL/min/1.73 m2 Normal >=59 [facility] Comment on above: Performed By: #### 1 [id number] #### [facility] [address] [place] [address] Population Healthon 06-24-19 [facility] Case Information Case Priority: None Programs: -- Referral Source: Farm [employer] Referral Reason: Disease management Case Type: Chronic Care Management Risk Score: -- Case Status: Active (January 07, 2024) Date Assigned: December 27, 2023 Assigned By: Rodrigo Khanna Date Enrolled: January 07, 2024 Assigned Primary Personnel: Rodrigo Khanna Assigned Secondary Personnel: -- Case Physician: Melissa Erazo MD Problems Ongoing Afib Atrial fibrillation, rapid Body mass index (BMI) of 45.0-49.9 in [...] liver Ulnar neuropathy Vitamin D3 deficiency Historical Asthma Procedure/Surgical History Colonoscopy (10/22/2023), Esophagogastroduode noscopy (10/22/2023), Cardiac catheter (2005), MANDI BSO - Total abdominal hysterectomy and bilateral salpingo-oophorecto my (01/15/2004), Arthroscopy, History of lumbar spine surgery, Tonsillectomy and adenoidectomy. Home Medications Albuterol (Eqv-Ventolin HFA) 90 mcg/inh inhalation aerosol, 2 puff(s), Inhalation, q6hr, PRN Eliquis 5 mg oral tablet, 5 mg= 1 tab(s), Oral, BID flecainide 100 mg Tab, 100 mg= 1 tab(s), Oral, q12hr metformin 500 mg Tab, See Instructions nebivolol 10 mg Tab, 10 mg= 1 tab(s), Oral, BID Nurtec ODT 75 mg oral tablet, disintegrating, 75 mg= 1 tab(s), SubLingual, Once Ozempic (1 mg dose) 4 mg/3 mL subcutaneous solution, See Instructions, 3 refills Pepcid 20 mg Tab, 20 mg, Oral, Daily Allergies Decadron (Unknown) predniSONE (Unknown) penicillin (Unknown) Social History Alcohol - Denies Alcohol Use, 12/03/2023 Past. Liquor. 1-2 times per month., 03/26/2024 Substance Abuse - Denies Substance Abuse, 12/03/2023 Never., 03/26/2024 Tobacco Former smoker, quit more than 30 days ago, Quit June 2023 Tobacco Use:., 03/27/2024 Former smoker, quit more than 30 days ago Tobacco Use:., 11/14/2023 Family History Patient was adopted Diabetes mellitus type 1: Father. Primary malignant neoplasm of female breast: Mother. Screenings and Assessments 01/07/24 12:27:00 Result Name Value Comment CCM Program Enrollment Verbally agreed to receive [facility] services CCM Written Consent Written consent in progress CCM Verbal Consent By Self 01/07/24 11:00:00 Result Name Value Comment HIPPA Verified Type of Contact Telephone Information Given by Self CM Preferred Spoken Language Panamanian CM Preferred Written Language Panamanian Preferred Communication Mode Verbal Ability to Read/Write Able to read, Able to write Preferred Salutation MrsSantos Cloth Neutralizer Called No Preferred Method of Contact Cell Cell Preferred Mailing Address [address] [place] [address] [phone] Best Time to Visit or Contact 7-10 am Best Day to Visit or Contact No preference Appointment Reminders Other secured messaging Preferred Way to Send PHI Other secured messaging Able to Read Panamanian Able to read Panamanian Learning Style Pref Patient Demonstration Teaching Method Demonstration Barriers to Learning None evident Cognitive Deficit No Response to Current Year Correct Response to Current Month Correct Response to Current Time Correct Count Backward 20 to 1 Correct State Months in Reverse Order Correct Repeat Memory Phrase Correct [facility] Test Score Indication None or no significant cognitive impairment Lives In Single level home full basement Number in Household 3 Sleeping Arrangement Shares bed Support System Spouse/Significant other, Family member(s), Friend(s), Cultural/Spiritual community Special Services and Resources Counseling Primary Carroting Machine Offbearer of Home Medication Self Medication Adherence Method Does not use any method Current DME at Home Yes has several items in home: lift chair, walker, cane, shower chair, motor scooter Currently Receiving Skilled Services No Skilled Service Needs Anticipated No B (more content not included)... Normal [facility] 04-17-20 [facility] Case Information Case Priority: None Programs: -- Referral Source: Farm [employer]cher Referral Reason: Disease management Case Type: Chronic Care Management Risk Score: -- Case Status: Active (January 07, 2024) Date Assigned: December 27, 2023 Assigned By: Rodrigo Khanna Date Enrolled: January 07, 2024 Assigned Primary Personnel: Rodrigo Khanna Assigned Secondary Personnel: -- Case Physician: Melissa Erazo MD Problems Ongoing Afib Atrial fibrillation, rapid Body mass index (BMI) of 45.0-49.9 in [...] liver Ulnar neuropathy Vitamin D3 deficiency Historical Asthma Procedure/Surgical History Colonoscopy (10/22/2023), Esophagogastroduode noscopy (10/22/2023), Cardiac catheter (2005), MANDI BSO - Total abdominal hysterectomy and bilateral salpingo-oophorecto my (01/15/2004), Arthroscopy, History of lumbar spine surgery, Tonsillectomy and adenoidectomy. Home Medications Albuterol (Eqv-Ventolin HFA) 90 mcg/inh inhalation aerosol, 2 puff(s), Inhalation, q6hr, PRN Eliquis 5 mg oral tablet, 5 mg= 1 tab(s), Oral, BID metformin 500 mg Tab, See Instructions nebivolol 10 mg Tab, 10 mg= 1 tab(s), Oral, BID Nurtec ODT 75 mg oral tablet, disintegrating, 75 mg= 1 tab(s), SubLingual, Once Ozempic (1 mg dose) 4 mg/3 mL subcutaneous solution, See Instructions, 3 refills Pepcid 20 mg Tab, 20 mg, Oral, Daily Allergies Decadron (Unknown) predniSONE (Unknown) penicillin (Unknown) Social History Alcohol - Denies Alcohol Use, 12/03/2023 Past. Liquor. 1-2 times per month., 03/26/2024 Substance Abuse - Denies Substance Abuse, 12/03/2023 Never., 03/26/2024 Tobacco Former smoker, quit more than 30 days ago, Quit June 2023 Tobacco Use:., 03/27/2024 Former smoker, quit more than 30 days ago Tobacco Use:., 11/14/2023 Family History Patient was adopted Diabetes mellitus type 1: Father. Primary malignant neoplasm of female breast: Mother. Screenings and Assessments 01/07/24 12:27:00 Result Name Value Comment [facility] Program Enrollment Verbally agreed to receive [facility] services CCM Written Consent Written consent in progress [facility] Verbal Consent By Self 01/07/24 11:00:00 Result Name Value Comment HIPPA Verified Type of Contact Telephone Information Given by Self CM Preferred Spoken Language Panamanian CM Preferred Written Language Panamanian Preferred Communication Mode Verbal Ability to Read/Write Able to read, Able to write Preferred Salutation MrsSantos Cloth Neutralizer Called No Preferred Method of Contact Cell Cell Preferred Mailing Address [address] [place] [address] [phone] Best Time to Visit or Contact 7-10 am Best Day to Visit or Contact No preference Appointment Reminders Other secured messaging Preferred Way to Send PHI Other secured messaging Able to Read Panamanian Able to read Panamanian Learning Style Pref Patient Demonstration Teaching Method Demonstration Barriers to Learning None evident Cognitive Deficit No Response to Current Year Correct Response to Current Month Correct Response to Current Time Correct Count Backward 20 to 1 Correct State Months in Reverse Order Correct Repeat Memory Phrase Correct OMC Test Score Indication None or no significant cognitive impairment Lives In Single level home full basement Number in Household 3 Sleeping Arrangement Shares bed Support System Spouse/Significant other, Family member(s), Friend(s), Cultural/Spiritual community Special Services and Resources Counseling Primary Carroting Machine Offbearer of Home Medication Self Medication Adherence Method Does not use any method Current DME at Home Yes has several items in home: lift chair, walker, cane, shower chair, motor scooter Currently Receiving Skilled Services No Skilled Service Needs Anticipated No Barriers to Care None Home Barriers None (more content not included)... Normal [facility] Office Visiton 04-15-2024 Follow-up visit [id number] Jovana Xie Shirlene 1970 F Date Provider Department Center 04/15/2024 [facility] SOTELO TENZIN Arboleda Family History Problem Relation Age of Onset Coronary artery disease Mother Other Mother Family Status - Relation Status Age at Mother Level of Service:14574 ND OFFICE/OUTPATIENT NEW MODERATE MDM 45 MINUTES Normal [facility] Family Medicine Office/Clini c Noteon 03-27-2024 Family Medicine Office/Clinic Note Family Medicine Office/Clinic Note HPI Staff Jovana is a 53 year old female presenting for 3 month follow up a fib. DM Do you have any of the following symptoms? Foot Exam: Eye Exam: due can't find anyone to see her Last A1C: Hgb A1C %: 5.2 % (09/25/23 13:45:00) Statin: none questions/concerns: wants to discuss her mobility that's always been in the background, can't move around so can't lose weight History of Present Illness The patient is a 54-year-old female presenting with mobility issues. She describes long-standing difficulties with mobility, which she states have always been a problem but were not previously addressed. Despite some recent weight loss, she notes a gradual regain. Additionally, she mentions concerns regarding her back and sciatica, which have compounded her mobility challenges. 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 Her history includes a nearly 400-pound weight, contributing to her current mobility difficulties, particularly since her participation in physical activities like swimming has lessened. She expresses interest in regaining mobility through physical therapy, focusing on improving her ability to transition from sitting to standing and overall movement efficiency. Review of Systems PHQ Score Initial Depression Screen Score: 0 SCORE Physical Exam Vitals & Measurements T: 37.1 ???C(Temporal Artery) HR: 78(Peripheral) RR: 18 BP: 136/82 SpO2: 98% HT: 64 in HT: 161.5 cm WT: 128.2 kg WT: 282.04 lb BMI: 49.15 General: alert, no acute distress ENMT: oral mucosa moist Cardiovascular: Regular rate and rhythm, normal peripheral perfusion Respiratory: Lungs clear to auscultation, respirations non labored Extremities: no deformity, no trauma Neurological: oriented x 4, level of consciousness appropriate for age, CN II-XII intact, motor strength equal & normal bilaterally, speech normal Abdomen: Soft, Non-tender, Non-distended, + Bowel sounds Assessment/Plan 1. Diabetes mellitus type II, controlled (E11.9: Type 2 diabetes mellitus without complications) An A1c test is recommended and due to be performed today, considering the last assessment in September. Ordered: Body Mass Index (BMI) documented 3008F Current tobacco non-user 1036F Depression Screening Negative 3352F Most recent diastolic blood pressure 80-89 mm Hg 3079F Systolic BP 130-139 mm Hg (Most Recent) 3075F 2. Poor mobility (Z74.09: Other reduced mobility) Referral to physical therapy is planned to address mobility, focusing on lower back and overall functional improvement. 3. Afib (I48.91: Unspecified atrial fibrillation) Patient reports current regular rhythm. She has been advised to continue on blood thinners, and her blood pressure is well controlled. Routine monitoring of rhythm and medication effects will continue. Ordered: Body Mass Index (BMI) documented 3008F Current tobacco non-user 1036F Depression Screening Negative 3352F Most recent diastolic blood pressure 80-89 mm Hg 3079F Systolic BP 130-139 mm Hg (Most Recent) 3075F 4. BMI 45.0-49.9, adult (Z68.42: Body mass index [BMI] 45.0-49.9, adult) This was noted with recognition of associated obesity concerns and is part of ongoing weight management efforts. Ordered: Body Mass Index (BMI) documented 3008F Current tobacco non-user 1036F Depression Screening Negative 3352F Most recent diastolic blood pressure 80-89 mm Hg 3079F Systolic BP 130-139 mm Hg (Most Recent) 3075F 5. Morbid obesity with body mass index (BMI) of 40.0 to 49.9 (E66.01: Morbid (severe) obesity due to excess calories) Addressed in conjunction with mobility and weight concerns. Suggested push for physical activities such as physical therapy. Ordered: Body Mass Index (BMI) documented 3008F Current tobacco non-user 1036F Depression Screening Negative 3352F Most recent diastolic blood pressure 80-89 mm Hg 3079F Systolic BP 130-139 mm Hg (Most Recent) 3075F 6. Former smoker (Z87.891: Personal history of nicotine dependence) Patient confirms she is no longer smoking, and ongoing abstinence is encouraged. Ordered: Body Mass Index (BMI) documented 3008F Current tobacco non-user 1036F Depression Screening Negative 3352F Most recent diastolic blood pressure 80-89 mm Hg 3079F Systolic BP 130-139 mm Hg (Most Recent) 3075F Orders: losartan, See Instructions, TAKE 1 TABLET BY MOUTH EVERY DAY , # 90 tab(s), Refills(s) 0, Pharmacy: [id number], 161.5, cm, 12/27/23 14:02:00 EDT, Height/Length Dosing, 124.4, kg, 12/27/23 14:02:00 EDT, Weight Dosing Pt should be on a statin. Pt states she was recently taken off. Follow-up No qualifying data available Problem List/Past Medical History Ongoing Afib Atrial fibrillation, rapid Body mass index (BMI) of 45.0-49.9 in adult Chronic GERD Colon cancer screening Colon kiki (more content not included)... Normal [facility] Comment on above: Result Comment: Elec tronically Signed By: Freeman AIKEN, Melissa Peterson.br\Date and Time Signed: 03/27/24 13:25 EDT Cult,Genitalon 03-10-2024 Cult,Genital Specimen Description .VAGINA Special Requests Site: Genital Culture NORMAL URO-GENITAL SAMMIE NEGATIVE FOR NEISSERIA GONORRHOEAE Report Status FINAL 03/10/2024 [facility] Comment on above: Performed By: #### G EC #### [facility] [address] [place] [address] Seafood Team Member: Caio James MD [facility] [address] [place] [address] Seafood Team Member: Eulalia Montelongo MD Cytology Reporton 03-07-2024 Cytology report Cyto stain.thin prep Doc (Cvx/Vag) (NOTE) Path Number: [id number] DIAGNOSIS Imaged ThinPrep Pap - Vaginal (1 monolayer slide): Specimen Adequacy: Satisfactory for evaluation. Descriptive Diagnosis: Negative for intraepithelial lesion or malignancy. Cytotech Screener: EY Electronically Signed Out E. Young CT(ASCP) ey/03/20/2024 Source of Specimen: A: Imaged ThinPrep Pap - Vaginal (1 monolayer slide) HPV Reflex?............ ..........HPV if Abnormal Clinical History Processing Lab: [place] [id number] Interpretation performed at [address] [phone] This Pap Test has been evaluated with the assistance of the ThinPrep Pap Test Imaging System. The Pap smear is a screening test primarily for squamous epithelial lesions, which is subject to both false negative and false positive results. Your patient should be reminded to consult you immediately if she experiences any suspicious signs or symptoms, regardless of her Pap smear result. GYNECOLOGIC CYTOLOGY REPORT Patient Name: JOVANA XIE [facility] Rec: [id number] [facility] Re Pet [facility] ANATOMIC PATHOLOGY [address] [place] [id number] Normal [facility] Health 03-05-20 [facility] Case Information Case Priority: None Programs: -- Referral Source: Farm [employer]cher Referral Reason: Disease management Case Type: Chronic Care Management Risk Score: -- Case Status: Active (January 07, 2024) Date Assigned: December 27, 2023 Assigned By: Rodrigo Khanna Date Enrolled: January 07, 2024 Assigned Primary Personnel: Rodrigo Khanna Assigned Secondary Personnel: -- Case Physician: Ross MD, Melissa E. Problems Ongoing Afib Atrial fibrillation, rapid Body mass index (BMI) of 45.0-49.9 in [...] liver Ulnar neuropathy Vitamin D3 deficiency Historical Asthma Procedure/Surgical History Colonoscopy (10/22/2023), Esophagogastroduode noscopy (10/22/2023), Cardiac catheter (2005), MANDI BSO - Total abdominal hysterectomy and bilateral salpingo-oophorecto my (01/15/2004), Arthroscopy, History of lumbar spine surgery, Tonsillectomy and adenoidectomy. Home Medications Albuterol (Eqv-Ventolin HFA) 90 mcg/inh inhalation aerosol, 2 puff(s), Inhalation, q6hr, PRN Eliquis 5 mg oral tablet, 5 mg= 1 tab(s), Oral, BID hydrochlorothiazide 25 mg Tab, 25 mg= 1 tab(s), Oral, Daily, Not taking losartan 100 mg Tab, See Instructions, Not taking metformin 500 mg Tab, See Instructions nebivolol 10 mg Tab, 10 mg= 1 tab(s), Oral, BID Nurtec ODT 75 mg oral tablet, disintegrating, 75 mg= 1 tab(s), SubLingual, Once Ozempic (1 mg dose) 4 mg/3 mL subcutaneous solution, See Instructions, 3 refills Pepcid, 20 mg, Oral, Daily Pepcid 20 mg Tab, 20 mg, Oral, Daily Allergies Decadron (Unknown) predniSONE (Unknown) penicillin (Unknown) Social History Alcohol - Denies Alcohol Use, 12/03/2023 Substance Abuse - Denies Substance Abuse, 12/03/2023 Tobacco Former smoker, quit more than 30 days ago, Quit June 2023 Tobacco Use:. Never Smokeless Tobacco Use:. Cigarettes, 02/19/2024 Former smoker, quit more than 30 days ago Tobacco Use:., 11/14/2023 Family History Patient was adopted Diabetes mellitus type 1: Father. Primary malignant neoplasm of female breast: Mother. Screenings and Assessments 01/07/24 12:27:00 Result Name Value Comment CCM Program Enrollment Verbally agreed to receive [facility] services CCM Written Consent Written consent in progress CCM Verbal Consent By Self 01/07/24 11:00:00 Result Name Value Comment HIPPA Verified Type of Contact Telephone Information Given by Self CM Preferred Spoken Language Panamanian CM Preferred Written Language Panamanian Preferred Communication Mode Verbal Ability to Read/Write Able to read, Able to write Preferred Salutation MrsSantos Cloth Neutralizer Called No Preferred Method of Contact Cell Cell Preferred Mailing Address [address] [place] [address] [phone] Best Time to Visit or Contact 7-10 am Best Day to Visit or Contact No preference Appointment Reminders Other secured messaging Preferred Way to Send PHI Other secured messaging Able to Read Panamanian Able to read Panamanian Learning Style Pref Patient Demonstration Teaching Method Demonstration Barriers to Learning None evident Cognitive Deficit No Response to Current Year Correct Response to Current Month Correct Response to Current Time Correct Count Backward 20 to 1 Correct State Months in Reverse Order Correct Repeat Memory Phrase Correct [facility] Test Score Indication None or no significant cognitive impairment Lives In Single level home full basement Number in Household 3 Sleeping Arrangement Shares bed Support System Spouse/Significant other, Family member(s), Friend(s), Cultural/Spiritual community Special Services and Resources Counseling Primary Carroting Machine Offbearer of Home Medication Self Medication Adherence Method Does not use any method Current DME at Home Yes has several items in home: lift chair, walker, cane, shower chair, motor scooter Currently Receiving Skilled Ser (more content not included)... Normal [facility] Family Medicine Office/Clini c Noteon 02-19-2024 Family Medicine Office/Clinic Note Family Medicine Office/Clinic Note HPI Staff Jovana is a 53 year old female presenting for acute visit Acute: pain at top of her head Pain characteristics: Pain location: top of head, no injury and if she coughs she's seeing stars and pain shoot through the roof, not much appetite last few days due to the pain and nothing tastes right, sweating terribly, running air full force in her bedroom and still sweating, very short of breath. Intensity:8_ Onset: sunday afternoon Medication used: tried nurteq thinking migraine but it's not touching it. Heart rate 96 and regular for me but pulse ox read 165 and pt has a fib History of Present Illness - Here for pain on top of her head. During vitals she was noted to have a HR in the 160-170's. Pt was then seen and sent to the ER. ER called and notified. Pt wanted to go by car. Review of Systems PHQ Score Initial Depression Screen Score: 0 SCORE Physical Exam Vitals & Measurements T: 36.1 ?C(Temporal Artery) HR: 96(Peripheral) RR: 24 BP: 132/80 SpO2: 98% HT: 64 in HT: 161.5 cm WT: 127.2 kg WT: 279.84 lb BMI: 48.77 General: alert, no acute distress ENMT: oral mucosa moist, Cardiovascular: irregularly-irregul ar rate and rhythm, normal peripheral perfusion Respiratory: Lungs CTA, respirations non labored Extremities: no deformity, no trauma Neurological: oriented x 4, LOC appropriate for age, CN II-XII intact, motor strength equal & normal bilaterally, speech normal Abdomen: Soft, Nontender, Non-distended, + BS Assessment/Plan 1. Atrial fibrillation, rapid (I48.91: Unspecified atrial fibrillation) Patient was sent to the ER. Patient was very short of breath. ER doctor notified. Patient is already on Eliquis. Orders: Body Mass Index (BMI) documented 3008F Current tobacco non-user 1036F Depression Screening Negative 3352F Most recent diastolic blood pressure 80-89 mm Hg 3079F Systolic BP 130-139 mm Hg (Most Recent) 3075F Total time spent preparing for the encounter, evaluating and assessing the patient, documenting the visit, and ordering appropriate follow-up work was 30 minutes. Follow-up No qualifying data available Problem List/Past Medical History Ongoing Afib Atrial fibrillation, rapid Body mass index (BMI) of 45.0-49.9 in [...] liver Ulnar neuropathy Vitamin D3 deficiency Historical Asthma Procedure/Surgical History Colonoscopy (10/22/2023), Esophagogastroduode noscopy (10/22/2023), Cardiac catheter (2005), MANDI BSO - Total abdominal hysterectomy and bilateral salpingo-oophorecto my (01/15/2004), Arthroscopy, History of lumbar spine surgery, Tonsillectomy and adenoidectomy. Medications Albuterol (Eqv-Ventolin HFA) 90 mcg/inh inhalation aerosol, 2 puff(s), Inhalation, q6hr, PRN Eliquis 5 mg oral tablet, 5 mg= 1 tab(s), Oral, BID hydrochlorothiazide 25 mg Tab, 25 mg= 1 tab(s), Oral, Daily, Not taking losartan 100 mg Tab, See Instructions, Not taking metformin 500 mg Tab, See Instructions nebivolol 10 mg Tab, 10 mg= 1 tab(s), Oral, BID Nurtec ODT 75 mg oral tablet, disintegrating, 75 mg= 1 tab(s), SubLingual, Once Ozempic (1 mg dose) 4 mg/3 mL subcutaneous solution, See Instructions, 3 refills Pepcid, 20 mg, Oral, Daily Pepcid 20 mg Tab, 20 mg, Oral, Daily Allergies Decadron (Unknown) predniSONE (Unknown) penicillin (Unknown) Social History Alcohol - Denies Alcohol Use, 12/03/2023 Substance Abuse - Denies Substance Abuse, 12/03/2023 Tobacco Former smoker, quit more than 30 days ago, Quit June 2023 Tobacco Use:. Never Smokeless Tobacco Use:. Cigarettes, 02/19/2024 Former smoker, quit more than 30 days ago Tobacco Use:., 11/14/2023 Family History Patient was adopted Diabetes mellitus type 1: Father. Primary malignant neoplasm of female breast: Mother. Normal [facility] Comment on above: Result Comment: Elec tronically Signed By: Freeman AIKEN, Melissa Mary\.br\Date and Time Signed: 02/19/24 14:39 EDT Population Health 02-15-20 [facility] Case Information Case Priority: None Programs: -- Referral Source: Farm [employer] Referral Reason: Disease management Case Type: Chronic Care Management Risk Score: -- Case Status: Active (January 07, 2024) Date Assigned: December 27, 2023 Assigned By: Rodrigo Khanna Date Enrolled: January 07, 2024 Assigned Primary Personnel: Rodrigo Khanna Assigned Secondary Personnel: -- Case Physician: Melissa Erazo MD Problems Ongoing Afib Body mass index (BMI) of 45.0-49.9 in [...] liver Ulnar neuropathy Vitamin D3 deficiency Historical Asthma Procedure/Surgical History Colonoscopy (10/22/2023), Esophagogastroduode noscopy (10/22/2023), Cardiac catheter (2005), MANDI BSO - Total abdominal hysterectomy and bilateral salpingo-oophorecto my (01/15/2004), Arthroscopy, History of lumbar spine surgery, Tonsillectomy and adenoidectomy. Home Medications Albuterol (Eqv-Ventolin HFA) 90 mcg/inh inhalation aerosol, 2 puff(s), Inhalation, q6hr, PRN Coreg 12.5 mg Tab, 12.5 mg= 1 tab(s), Oral, BID Eliquis 5 mg oral tablet, 5 mg= 1 tab(s), Oral, BID hydrochlorothiazide 25 mg Tab, 25 mg= 1 tab(s), Oral, Daily losartan 100 mg Tab, See Instructions metformin 500 mg Tab, See Instructions Nurtec ODT 75 mg oral tablet, disintegrating, 75 mg= 1 tab(s), SubLingual, Once Ozempic (1 mg dose) 4 mg/3 mL subcutaneous solution, See Instructions, 3 refills Pepcid, 20 mg, Oral, Daily Pepcid 20 mg Tab, 20 mg, Oral, Daily Allergies Decadron (Unknown) predniSONE (Unknown) penicillin (Unknown) Social History Alcohol - Denies Alcohol Use, 12/03/2023 Substance Abuse - Denies Substance Abuse, 12/03/2023 Tobacco Former smoker, quit more than 30 days ago, Quit June 2023 Tobacco Use:. Never Smokeless Tobacco Use:. Cigarettes, 12/27/2023 Former smoker, quit more than 30 days ago Tobacco Use:., 11/14/2023 Family History Patient was adopted Diabetes mellitus type 1: Father. Primary malignant neoplasm of female breast: Mother. Screenings and Assessments 01/07/24 12:27:00 Result Name Value Comment CCM Program Enrollment Verbally agreed to receive [facility] services CCM Written Consent Written consent in progress CCM Verbal Consent By Self 01/07/24 11:00:00 Result Name Value Comment HIPPA Verified Type of Contact Telephone Information Given by Self CM Preferred Spoken Language Panamanian CM Preferred Written Language Panamanian Preferred Communication Mode Verbal Ability to Read/Write Able to read, Able to write Preferred Salutation Cloth Neutralizer Called No Preferred Method of Contact Cell Cell Preferred Mailing Address [address] [place] [address] [phone] Best Time to Visit or Contact 7-10 am Best Day to Visit or Contact No preference Appointment Reminders Other secured messaging Preferred Way to Send PHI Other secured messaging Able to Read Panamanian Able to read Panamanian Learning Style Pref Patient Demonstration Teaching Method Demonstration Barriers to Learning None evident Cognitive Deficit No Response to Current Year Correct Response to Current Month Correct Response to Current Time Correct Count Backward 20 to 1 Correct State Months in Reverse Order Correct Repeat Memory Phrase Correct [facility] Test Score Indication None or no significant cognitive impairment Lives In Single level home full basement Number in Household 3 Sleeping Arrangement Shares bed Support System Spouse/Significant other, Family member(s), Friend(s), Cultural/Spiritual community Special Services and Resources Counseling Primary Carroting Machine Offbearer of Home Medication Self Medication Adherence Method Does not use any method Current DME at Home Yes has several items in home: lift chair, walker, cane, shower chair, motor scooter Currently Receiving Skilled Services No Skilled Service Needs Anticipate (more content not included)... Normal [facility] 36on 01-24-2024 36 Please let patient know I discussed with pharmacy about her meds and concern for weight gain. Carvedilol does have the potential to cause weight but it is a low risk. We could try her on a different medication to see if this helps. Would recommend switching to nebivolol 10mg daily. This may also help her shortness of breath. Thanks! Normal [facility] Telephoneon 01-24-2024 Telephone [id number] Jovana Xie 1970 F Date Provider Department Center 01/24/2024 GRISEL MELÉNDEZ Gema Hassan Family History Problem Relation Age of Onset Coronary artery disease Mother Other Mother Family Status - Relation Status Age at Mother [facility] Office Visiton 01-16-2024 Follow-up visit [id number] Jovana Xie 1970 Date Provider Department Center 01/16/2024 GRISEL MELÉNDEZ Lizz Robles Family History Problem Relation Age of Onset Coronary artery disease Mother Other Mother Family Status - Relation Status Age at Mother Level of Service:11961 ND OFFICE/OUTPATIENT ESTABLISHED MOD MDM 30 MIN Reason for Visit and Comments: Atrial Fibrillation [80] Cardiac Stress Test [489] ECHO [Other] [facility] 36on 01-08-2024 36 Regarding stress test result from 12/26/2023: FLY Melgar MA Stress test did not show any ischemia Did note some premature atrial beat and tachycardia No acute concerns. Patient informed. She has follow up 01/16/2024. [facility] Population Health 01-07-20 [facility] Case Information Case Priority: None Programs: -- Referral Source: [employer] Referral Reason: Disease management Case Type: Chronic Care Management Risk Score: -- Case Status: Active (January 07, 2024) Date Assigned: December 27, 2023 Assigned By: Rodrigo Khanna Date Enrolled: January 07, 2024 Assigned Primary Personnel: Rodrigo Khanna Assigned Secondary Personnel: -- Case Physician: Melissa Erazo MD Problems Ongoing Afib Body mass index (BMI) of 45.0-49.9 in [...] liver Ulnar neuropathy Vitamin D3 deficiency Historical Asthma Procedure/Surgical History Colonoscopy (10/22/2023), Esophagogastroduode noscopy (10/22/2023), Cardiac catheter (2005), MANDI BSO - Total abdominal hysterectomy and bilateral salpingo-oophorecto my (01/15/2004), Arthroscopy, History of lumbar spine surgery, Tonsillectomy and adenoidectomy. Home Medications Albuterol (Eqv-Ventolin HFA) 90 mcg/inh inhalation aerosol, 2 puff(s), Inhalation, q6hr, PRN Coreg 12.5 mg Tab, 12.5 mg= 1 tab(s), Oral, BID Eliquis 5 mg oral tablet, 5 mg= 1 tab(s), Oral, BID hydrochlorothiazide 25 mg Tab, 25 mg= 1 tab(s), Oral, Daily losartan 100 mg Tab, See Instructions metformin 500 mg Tab, See Instructions Nurtec ODT 75 mg oral tablet, disintegrating, 75 mg= 1 tab(s), SubLingual, Once Ozempic (1 mg dose) 4 mg/3 mL subcutaneous solution, See Instructions, 3 refills Pepcid, 20 mg, Oral, Daily Allergies Decadron (Unknown) predniSONE (Unknown) penicillin (Unknown) Social History Alcohol - Denies Alcohol Use, 12/03/2023 Substance Abuse - Denies Substance Abuse, 12/03/2023 Tobacco Former smoker, quit more than 30 days ago, Quit June 2023 Tobacco Use:. Never Smokeless Tobacco Use:. Cigarettes, 12/27/2023 Former smoker, quit more than 30 days ago Tobacco Use:., 11/14/2023 Family History Patient was adopted Diabetes mellitus type 1: Father. Primary malignant neoplasm of female breast: Mother. Screenings and Assessments 01/07/24 12:27:00 Result Name Value Comment CCM Program Enrollment Verbally agreed to receive [facility] services CCM Written Consent Written consent in progress CCM Verbal Consent By Self 01/07/24 11:00:00 Result Name Value Comment HIPPA Verified Type of Contact Telephone Information Given by Self CM Preferred Spoken Language Panamanian CM Preferred Written Language Panamanian Preferred Communication Mode Verbal Ability to Read/Write Able to read, Able to write Preferred Salutation Mrs. Cloth Neutralizer Called No Preferred Method of Contact Cell Cell Preferred Mailing Address [address] [place] [address] [phone] Best Time to Visit or Contact 7-10 am Best Day to Visit or Contact No preference Appointment Reminders Other secured messaging Preferred Way to Send PHI Other secured messaging Able to Read Panamanian Able to read Panamanian Learning Style Pref Patient Demonstration Teaching Method Demonstration Barriers to Learning None evident Cognitive Deficit No Response to Current Year Correct Response to Current Month Correct Response to Current Time Correct Count Backward 20 to 1 Correct State Months in Reverse Order Correct Repeat Memory Phrase Correct O[facility] Test Score Indication None or no significant cognitive impairment Lives In Single level home full basement Number in Household 3 Sleeping Arrangement Shares bed Support System Spouse/Significant other, Family member(s), Friend(s), Cultural/Spiritual community Special Services and Resources Counseling Primary Carroting Machine Offbearer of Home Medication Self Medication Adherence Method Does not use any method Current DME at Home Yes has several items in home: lift chair, walker, cane, shower chair, motor scooter Currently Receiving Skilled Services No Skilled Service Needs Anticipated No Barriers to Care N (more content not included)... Normal [facility] Population Health Population Health Problems Ongoing Afib Body mass index (BMI) of 45.0-49.9 in [...] liver Ulnar neuropathy Vitamin D3 deficiency Historical Asthma Procedure/Surgical History Colonoscopy (10/22/2023), Esophagogastroduode noscopy (10/22/2023), Cardiac catheter (2005), MANDI BSO - Total abdominal hysterectomy and bilateral salpingo-oophorecto my (01/15/2004), Arthroscopy, History of lumbar spine surgery, Tonsillectomy and adenoidectomy. Medication List Coreg 12.5 mg Tab, 12.5 mg= 1 tab(s), Oral, BID Eliquis 5 mg oral tablet, 5 mg= 1 tab(s), Oral, BID hydrochlorothiazide 25 mg Tab, 25 mg= 1 tab(s), Oral, Daily losartan 100 mg Tab, See Instructions metformin 500 mg Tab, See Instructions Nurtec ODT 75 mg oral tablet, disintegrating, 75 mg= 1 tab(s), SubLingual, Once, Not taking Ozempic (1 mg dose) 4 mg/3 mL subcutaneous solution, See Instructions, 3 refills Allergies Decadron (Unknown) predniSONE (Unknown) penicillin (Unknown) Goals and Interventions Care Plan Goal: Reduce Fall Risk Start Date: 2023 Target: - - Status: Not met Barriers: - - Comments: - - Intervention Frequency Status Roofing Apprentice Learn About Home Safety to Prevent Falls or Injury - - Not done - - Review educational material - - Not done - - Goal: Reduce and/or prevent episodes of breakthrough afb and avoid complications Start Date: 2023 Target: - - Status: Not met Barriers: - - Comments: - - Intervention Frequency Status Roofing Apprentice Review educational materials - - Not done - - Take medications as prescribed - - Not done - - Keep follow up appts with Dr. Merritt for treatment of sleep apnea - - Not done - - Monitor HR and learn symptoms of afib to reprot to provider - - Not done - - Keep follow up appts and testing with Cardiology as schedued - - Not done - - Goal: Prevent complications of diabetes Start Date: 2023 Target: - - Status: Not met Barriers: - - Comments: - - Intervention Frequency Status Roofing Apprentice Review educational material - - Not done - - take medications as prescribed - - Not done - - Complete daily foot checks and report any abnormal findings to provider - - Not done - - Consult with tooler - - Not done - - Try to increase daily activity levels when back pain allows - - Not done - - Goal: Maintain therapeutic BP and prevent complications Start Date: 2023 Target: - - Status: Not met Barriers: - - Comments: - - Intervention Frequency Status Roofing Apprentice Review educational material - - Not done - - Monitor BP daily and learn when to report to provider - - Not done - - Take Medications as Prescribed - - Not done - - limit salt intake, avoid foods high in salt such as: pickles, chips, olives, or adding extra salt - - Not done - - Goal: Decrease back pain and maintain/ improve mobility Start Date: 2023 Target: - - Status: Not met Barriers: - - Comments: - - Intervention Frequency Status Roofing Apprentice complete daily stretching exercises - - Not done - - Partake in low impact activity 2-3 days per week (as tolerated) such as: swim, yoga, walk... - - Not done - - Use heating pad or icepack as needed for soothing comfort - - Not done - - Goal: Trend weight down to improve overall health Start Date: 2023 Target: - - Status: Not met Barriers: - - Comments: - - Intervention Frequency Status Roofing Apprentice Consult with tooler - - Not done - - eat a well balanced diet rich in protein and avoid foods high in saturated fat - - Not done - - increase low impact exercise as tolerated - - Not done - - Normal [facility] Family Medicine Office/Clini c Noteon 12-27-2023 Family Medicine Office/Clinic Note Family Medicine Office/Clinic Note HPI Staff Jovana is a 53 year old female presenting for one month follow up a fib Nurtec 75 mg- - last one was 2 days ago, pharmacy said she needs insurance approval before they can give her more refills Questions/Concerns- none No other refills Echo was done this week Sunday First part of stress test was yesterday, second part is December 31 Has appt with Respiratory Therapy Instructor- December 13 History of Present Illness - Here for follow-up. Patient is seeing cardiology. Stress test is being performed. Second phase is next week. Patient feels good. Patient had an echo done. Review of Systems PHQ Score Initial Depression Screen Score: 0 SCORE Physical Exam Vitals & Measurements T: 36.8 ?C(Temporal Artery) HR: 81(Peripheral) RR: 20 BP: 136/84 SpO2: 96% HT: 64 in HT: 161.5 cm WT: 124.4 kg WT: 273.68 lb BMI: 47.7 General: alert, no acute distress ENMT: oral mucosa moist, Cardiovascular: irregular rate and rhythm, normal peripheral perfusion Respiratory: Lungs CTA, respirations non labored Extremities: no deformity, no trauma Neurological: oriented x 4, LOC appropriate for age, CN II-XII intact, motor strength equal & normal bilaterally, speech normal Abdomen: Soft, Nontender, Non-distended, + BS Assessment/Plan 1. Afib (I48.91: Unspecified atrial fibrillation) - Sees cardiology - Needs follow up - Stress test next week - CCN referral placed. 2. Controlled type 2 diabetes mellitus without complication, without long-term current use of insulin (E11.9: Type 2 diabetes mellitus without complications) - Continue meds as before. 3. Former smoker (Z87.891: Personal history of nicotine dependence) - Please continue to not smoke. 4. Adult BMI 45.0-49.9 kg/sq m (Z68.42: Body mass index [BMI] 45.0-49.9, adult) - BMI education added. 5. HTN (hypertension) (I10: Essential (primary) hypertension) - At goal. Orders: semaglutide, See Instructions, INJECT 1 MG SUBCUANEOUSLY WEEKLY, # 9 mL, Refills(s) 3, Pharmacy: [facility]/pharmacy #[id number], 161.5, cm, 12/27/23 14:02:00 EDT, Height/Length Dosing, 124.4, kg, 12/27/23 14:02:00 EDT, Weight Dosing Follow-up No qualifying data available Problem List/Past Medical History Ongoing Afib Body mass index (BMI) of 45.0-49.9 in [...] liver Ulnar neuropathy Vitamin D3 deficiency Historical Asthma Procedure/Surgical History Colonoscopy (10/22/2023), Esophagogastroduode noscopy (10/22/2023), Cardiac catheter (2005), MANDI BSO - Total abdominal hysterectomy and bilateral salpingo-oophorecto my (01/15/2004), Arthroscopy, History of lumbar spine surgery, Tonsillectomy and adenoidectomy. Medications Coreg 12.5 mg Tab, 12.5 mg= 1 tab(s), Oral, BID Eliquis 5 mg oral tablet, 5 mg= 1 tab(s), Oral, BID hydrochlorothiazide 25 mg Tab, 25 mg= 1 tab(s), Oral, Daily losartan 100 mg Tab, 100 mg= 1 tab(s), Oral, Daily metformin 500 mg Tab, See Instructions Nurtec ODT 75 mg oral tablet, disintegrating, 75 mg= 1 tab(s), SubLingual, Once, Not taking Ozempic (1 mg dose) 4 mg/3 mL subcutaneous solution, See Instructions, 3 refills Allergies Decadron (Unknown) predniSONE (Unknown) penicillin (Unknown) Social History Alcohol - Denies Alcohol Use, 12/03/2023 Substance Abuse - Denies Substance Abuse, 12/03/2023 Tobacco Former smoker, quit more than 30 days ago, Quit June 2023 Tobacco Use:. Never Smokeless Tobacco Use:. Cigarettes, 12/27/2023 Former smoker, quit more than 30 days ago Tobacco Use:., 11/14/2023 Family History Patient was adopted Diabetes mellitus type 1: Father. Primary malignant neoplasm of female breast: Mother. [facility] Comment on above: Result Comment: Elec tronically Signed By: Freeman AIKEN, Melissa Mary\.br\Date and Time Signed: 12/27/23 14:23 EDT Patient Letter [facility] 2023 Patient Letter [facility] Patient Letter [facility] December 24, 2023 JOVANA XIE [address] [place] [phone] : 1970 Our office has been trying to reach you, when you receive this letter please give our office [place] [address] [facility] 37on 12-14-2023 37 Increase Carvedilol to 25 mg twice a day Call office for any concerns- increased fatigue, shortness of breath, lightheadedness/diz ziness or any concerns Orders for sleep study, stress test and echcocardiogram Normal [facility] Office Visiton 12-14-2023 Follow-up visit [id number] Jovana Xie 1970 F Date Provider Department Center 12/14/2023 MEGAN GUO TENZIN [facility] Family History Problem Relation Age of Onset Coronary artery disease Mother Other Mother Family Status - Relation Status Age at Mother Level of Service:68987 ND OFFICE/OUTPATIENT ESTABLISHED MOD MDM 30 MIN Normal [facility] Family Medicine Office/Clini c Noteon 12-13-2023 [...] CDC-Falls Prevention and home safety screening reviewed. [place] Advance Directives reviewed. Patient provided with education [...] follow up visits. Patient follows up with Respiratory Therapy Instructor, last visit notes available in chart and [...] DM medica (more content not included)... Normal [facility] Comment on above: Result Comment: Elec [...] EDT With: Freeman AIKEN, Melissa Mary Where: [place] [id number] \.br\ Medications\.br\ What How Much When Instructions\.br\ [...] \.br\ Some fast-acting carbs are:\.br\ ? \.br [facility] Consultation Noteon 11-28-19 24 Consultation Note [id number] 1C#1.00TIFF Normal [facility] Ambulatory Visit Summaryon 0 11-27-2023 Ambulatory [...] Follow-Up Appointments Sunday 11:00 AM EDT Where: [facility] Medicine [place] Normal [facility] Medicine Office/Clini c Noteon 11-27-2023 Family Medicine [...] to the ER - Concerns discussed with [facility] that its when she coughs that [...] malignant neoplasm of female breast: Mother. Normal [facility] Comment on above: Result Comment: Elec [...] oz glass (more content not included)... Normal [facility] RAD - CT Reporton 11-15-2023 RAD - CT Report [id number] F#1.00TIFF Normal [facility] Ambulatory Visit Summaryon 0 11-14-2023 Ambulatory [...] AM EDT With: Melissa Erazo MD Where: [facility] [place] Normal [facility] Gastroenterology Office/Clin ic Noteon 11-14-2023 Gastroenterology [...] 50 mg (more content not included)... Normal [facility] Comment on above: Result Comment: Elec tronically Signed By: Steffanie AIKEN, Navdeep Rodríguez\.br\Date and Time Signed: 11/14/23 12:56 EDT Consultation Noteon 11-01-19 Consultation Note [id number] 8#1.00TIFF Normal [facility] Family Medicine Office/Clini c Noteon 10-30-2023 [...] and down Yearly BMP: 09/25/23 questions/concerns: saw shingle inspector and wearing a heart monitor. she was called yesterday by shingle inspector [facility] and he put her on a blood thinner eliquis 5mg bid History of Present Illness Here for follow up. - BS have been great. - No concerns Bps are great. Found to have Afib on her holter. Elquis called in already. - Needs rate control [...] atrial fibrillation) - As above - Please diamond picker the elquis. 4. Colon polyp (K63.5: Polyp of colon) - Per Patient. - Following with GI. Orders: metoprolol, 25 mg = 1 tab(s), Oral, Daily, # 90 tab(s), Refills(s) 0, Pharmacy: [facility]/pharmacy #[id number], 162, cm, 10/30/23 9:51:00 EDT, Height/Length [...] Primary malignant neoplasm of female breast: Mother. [facility] Comment on above: Result Comment: Elec tronically Signed By: Freeman AIKEN, Melissa Peterson.br\Date and Time Signed: 10/30/23 10:17 EDT IntraOperative Documentson 0 10-26-2023 IntraOperative Documents [id number]#1.00TIFF [facility] Postoperative Documentson Postoperative Documents [id number] 0988#1.00TIFF [facility] Consenton 10-23-2023 Consent [id number] 67#1.00TIFF [facility] Discharge Instructionson Discharge Instructions [id number] 80#1.00TIFF [facility] Main OR Intraoperative Recor don 10-23-2023 Main OR Intraoperative Record IntraOp Document Type FT Summary Primary Physician: Steffanie AIKEN, Navdeep Rodríguez Finalized Date/Time: 10/23/23 11:51:00 Pt. Name: JOVANA XIE/Sex: 1970 Female Med Rec #: [id number] Physician: Steffanie AIKEN, Navdeep Rodríguez Financial #: [id number] Pt. Type: O Room/Bed: / Admit/Disch: 10/22/23 [...] Attendee Kylee CEE, Pa Oliveira, Camille Clemons TANK CLEANING SUPERVISOR, Radha Abebe Role Performed Anesthesiologist Scrub - Primary Staff - Other Materials Management Clerk Time In 10/22/23 10:23:00 10/22/23 10:23:00 10/22/23 [...] RN, Maki Role Performed Surgeon - Primary Hand Funnel Coater - Primary Time In 10/22/23 10:23:00 10/22/23 10:23:00 Time Out 10/22/23 10:51:00 10/22/23 10:51:00 Procedure EGD AND COLONOSCOPY(.) EGD AND COLONOSCOPY(.) Comments Last Modified By: Maki Brunner RN, RN, Angela 10/22/23 10:49:13 10/22/23 10:49:13 Perioperative Protocols FT [...] (If Applicable) PreOp Antibiotic No Time Out Kylee CEE, Pa Given Participants Roxanne Wilkinson Micala E, Deonte WEATHERS, Steffanie Egan MD, Navdeep Rodríguez, Maki Brunner [...] and tissue Entry 1 Skin Integrity Intact, [place], Warm, and Skin Abnormality No Dry Outcomes Met? Yes Last Modified By: Maki Brunner RN 10/22/23 10:29:47 Post-Care Text: The patient is free from signs and symptoms of injury caused by extraneous objects Patient Positioning FT Pre-Care Text: Identifies physical alterations that require additional precautions for procedure-specific (more content not included)... Normal [facility] Consent for Treatmenton 10-03 Consent for Treatment [id number] 5A#1.00TIFF Normal [facility] Discharge Instructionson Discharge Instructions JOVANA XIE :1970 Visit Date:10/22/2023 Inpatient Discharge Instructions Your Care Team Admitting Physician - Navdeep Valiente MD Referring Physician - Navdeep Valiente MD. Reason [...] EDT With: Freeman AIKEN, Melissa Mary Where: [facility] Comment on above: Result Comment: Elec [...] WEEKLY, # 9 mL, Refills(s) 3, Pharmacy: [facility], 162, cm, 09/25/23 13:12:00 EDT, Height/Length Dosing, 121.7, kg, 09/25/23 13:12:00 EDT, Weight Dosing hydrochlorothiazide 25 mg Tab: 25 mg = 1 tab(s), Oral, Daily, # 90 tab(s), Refills(s) 0, Pharmacy: [facility], 162, cm, 09/25/23 13:12:00 EDT, Height/Length Dosing, 121.7, kg, 09/25/23 13:12:00 EDT, Weight Dosing losartan 100 mg Tab: 100 mg = 1 tab(s), Oral, Daily, # 90 tab(s), Refills(s) 0, Pharmacy: [facility], 162, cm, 09/25/23 13:12:00 EDT, Height/Length Dosing, 121.7, kg, 09/25/23 13:12:00 EDT, Weight Dosing metformin 500 mg Tab: See Instructions, TAKE 1 TABLET BY MOUTH EVERY DAY, # 90 tab(s), Refills(s) 3, Pharmacy: [facility] [address], 162, cm, 09/25/22 11:02:00 EDT, Height/Length Dosing, [...] Rec1_hd_video_2023_ _[id number]. jpg Rec1_hd_video_2023_ _[id number]_[id number]. jpg Rec1_hd_video_2023_ _[id number]. jpg Rec1_hd_video_2023_ 05_20T09_40_25_569. jpg Rec1_hd_video_2023_ _[id number]_40_[id number]. jpg Rec1_hd_video_2023_ _[id number]_41_41_[id number]. jpg . Post-Procedure Complications: none. Estimated blood loss: minimal. Specimens: sent to pathology. Devices/ implants: none left in place. Impression and Plan gastropathy Nonobstructing Schatzki's ring Hiatal hernia Recommendations: -Resume previous diet -Resume home medications -Avoid NSAIDs -Await pathology results, follow in GI clinic in 1-2 after discharge Normal [facility] Comment on above: Other Comment: Latha sim Attachment - attachment storage system not supported [id number] Can be viewed in source systemMissing Attachment - attachment storage system not supported 1158621 Can be viewed in source systemMissing Attachment - attachment storage system not supported 9892410 Can be viewed in source systemMissing Attachment - attachment storage system not supported [id number] Can be viewed in source systemMissing Attachment - attachment storage system not supported 8329414 Can be viewed in source systemMissing Attachment - attachment storage system not supported [id number] Can be viewed in source system Colonoscopy Procedure Report Patient: JOVANA XIE Age: 53 years Sex: Female : 1970 Associated Diagnoses: None Author: Navdeep Valiente MD Pre-Procedure Procedure Date 10/22/2023 10:52:00 . Procedure Type: Colonoscopy with removal of tumor(s), polyp(s), or other lesion(s) by cold snare technique. Procedure provider Performed by Navdeep Valiente MD. Current history and physical Documented on chart. Cardiac catheter ([id number]) in 2005 at 36 Years. MANDI BSO - Total abdominal hysterectomy and bilateral salpingo-oophorecto my (7271400344) on 01/15/2004 at 33 Years. Tonsillectomy and adenoidectomy (357827666). Arthroscopy ([id number]). Comments: 09/01/2022 10:00 Daija Mendosa LPN left and right, separate times History of lumbar spine surgery (3532391823). Comments: 09/01/2022 10:01 Daija Mendosa LPN L4-L5 disc December 2015. Past Medical History No active or resolved past medical history items have been selected or recorded.. Family History Patient was adopted. Diabetes mellitus type 1 Father Primary malignant neoplasm of female breast Mother . Procedure History Cardiac catheter ([id number]) in 2005 at 36 Years. MANDI BSO - Total abdominal hysterectomy and bilateral salpingo-oophorecto my (8327433687) on 01/15/2004 at 33 Years. Tonsillectomy and adenoidectomy (888660791). Arthroscopy ([id number]). Comments: 09/01/2022 10:00 Daija Mendosa LPN left and right, separate times History of lumbar spine surgery (4140263372). Comments: 09/01/2022 10:01 Daija Mendosa LPN L4-L5 [...] WEEKLY, # 9 mL, Refills(s) 3, Pharmacy: [facility], 162, cm, 09/25/23 13:12:00 EDT, Height/Length Dosing, 121.7, kg, 09/25/23 13:12:00 EDT, Weight Dosing hydrochlorothiazide 25 mg Tab: 25 mg = 1 tab(s), Oral, Daily, # 90 tab(s), Refills(s) 0, Pharmacy: [facility], 162, cm, 09/25/23 13:12:00 EDT, Height/Length Dosing, 121.7, kg, 09/25/23 13:12:00 EDT, Weight Dosing losartan 100 mg Tab: 100 mg = 1 tab(s), Oral, Daily, # 90 tab(s), Refills(s) 0, Pharmacy: [facility], 162, cm, 09/25/23 13:12:00 EDT, Height/Length Dosing, 121.7, kg, 09/25/23 13:12:00 EDT, Weight Dosing metformin 500 mg Tab: See Instructions, TAKE 1 TABLET BY MOUTH EVERY DAY, # 90 tab(s), Refills(s) 3, Pharmacy: [facility] [address], 162, cm, 09/25/22 11:02:00 EDT, Height/Length Dosing, [...] _[id number]. jpg Rec1_hd_video_20 (more content not included)... [facility] Comment on above: Other Comment: Latha sim Attachment - attachment storage system not supported [id number] Can be viewed in source systemMissing Attachment - attachment storage system not supported 1734977 Can be viewed in source systemMissing Attachment - attachment storage system not supported 4012585 Can be viewed in source systemMissing Attachment - attachment storage system not supported 1036874 Can be viewed in source systemMissing Attachment - attachment storage system not supported 2470041 Can be viewed in source systemMissing Attachment - attachment storage system not supported 8892830 Can be viewed in source systemMissing Attachment - attachment storage system not supported 8437728 Can be viewed in source systemMissing Attachment - attachment storage system not supported 8749585 Can be viewed in source system Esophagogastroduod enoscopy Patient: JOVANA XIE Age: 53 years Sex: Female : 1970 Associated Diagnoses: None Author: Navdeep Valiente MD Pre-Procedure Procedure Date 10/22/2023 10:52:00 . Procedure Type: Colonoscopy with removal of tumor(s), polyp(s), or other lesion(s) by cold snare technique. Procedure provider Performed by Navdeep Valiente MD. Current history and physical Documented on chart. Cardiac catheter ([id number]) in 2005 at 36 Years. MANDI BSO - Total abdominal hysterectomy and bilateral salpingo-oophorecto my (5474763175) on 01/15/2004 at 33 Years. Tonsillectomy and adenoidectomy (397928369). Arthroscopy ([id number]). Comments: 09/01/2022 10:00 Daija Mendosa LPN left and right, separate times History of lumbar spine surgery (7453898247). Comments: 09/01/2022 10:01 Daija Mendosa LPN L4-L5 disc December 2015. Past Medical History No active or resolved past medical history items have been selected or recorded.. Family History Patient was adopted. Diabetes mellitus type 1 Father Primary malignant neoplasm of female breast Mother . Procedure History Cardiac catheter ([id number]) in 2005 at 36 Years. MANDI BSO - Total abdominal hysterectomy and bilateral salpingo-oophorecto my (5194899709) on 01/15/2004 at 33 Years. Tonsillectomy and adenoidectomy (322857240). Arthroscopy (74444309). Comments: 09/01/2022 10:00 Daija Mendosa LPN left and right, separate times History of lumbar spine surgery (0659504790). Comments: 09/01/2022 10:01 EDT - Zara MILLERDaija [...] WEEKLY, # 9 mL, Refills(s) 3, Pharmacy: [facility], 162, cm, 09/25/23 13:12:00 EDT, Height/Length Dosing, 121.7, kg, 09/25/23 13:12:00 EDT, Weight Dosing hydrochlorothiazide 25 mg Tab: 25 mg = 1 tab(s), Oral, Daily, # 90 tab(s), Refills(s) 0, Pharmacy: [facility], 162, cm, 09/25/23 13:12:00 EDT, Height/Length Dosing, 121.7, kg, 09/25/23 13:12:00 EDT, Weight Dosing losartan 100 mg Tab: 100 mg = 1 tab(s), Oral, Daily, # 90 tab(s), Refills(s) 0, Pharmacy: [facility], 162, cm, 09/25/23 13:12:00 EDT, Height/Length Dosing, 121.7, kg, 09/25/23 13:12:00 EDT, Weight Dosing metformin 500 mg Tab: See Instructions, TAKE 1 TABLET BY MOUTH EVERY DAY, # 90 tab(s), Refills(s) 3, Pharmacy: [facility] [address], 162, cm, 09/25/22 11:02:00 EDT, Height/Length Dosing, [...] jpg Rec_hd_video__51_11_056. jpg Rec_hd_video__52_24_292. jpg Rec_hd_video__53_07_534. jpg Rec1_hd_video_2023_ _T09_53_17_111. jpg Rec1_hd_video_20 (more content not included)... [facility] Comment on above: Other Comment: Latha sim Attachment - attachment storage system not supported [id number] Can be viewed in source systemMissing Attachment - attachment storage system not supported 4942156 Can be viewed in source systemMissing Attachment - attachment storage system not supported 0710131 Can be viewed in source systemMissing Attachment - attachment storage system not supported 2550737 Can be viewed in source systemMissing Attachment - attachment storage system not supported 9673809 Can be viewed in source systemMissing Attachment - attachment storage system not supported 4101573 Can be viewed in source systemMissing Attachment - attachment storage system not supported 6862674 Can be viewed in source systemMissing Attachment - attachment storage system not supported 8864920 Can be viewed in source system Main OR PACU I Recordon 05 Main OR PACU I Record PACU Phase I Document Type FT Summary Primary Physician: Navdeep Valiente MD Finalized Date/Time: 10/22/23 12:06:11 Pt. Name: JOVANA XIE/Sex: 1970 Female Med Rec #: [id number] Physician: Navdeep Valiente MD Financial #: [id number] Pt. Type: O Room/Bed: / Admit/Disch: 10/22/23 [...] Signed By: Lorri Sanchez RN 10/22/23 12:06 [facility] Main OR Preoperative Recordo n 10-22-2023 Main OR Preoperative Record Holding Area Document Type FT Summary Primary Physician: Navdeep Valiente MD Finalized Date/Time: 10/22/23 09:34:35 Pt. Name: JOVANA XIE/Sex: 1970 Female Med Rec #: [id number] Physician: Navdeep Valiente MD Financial #: [id number] Pt. Type: O Room/Bed: / Admit/Disch: 10/22/23 [...] By: Fely Leon RN 10/22/23 09:34 Normal [facility] Monitor Recordon 10-22-2023 Monitor Record [id number] 751#1.00TIFF Normal [facility] Monitor Record [id number] 432#1.00TIFF Normal [facility] Patient Education - [employer] 0 10-22-2023 [...] unsweetened, w/added ascorbic acid 1 cup 0.5 [place] 1 cup 0.7 Vegetables Cooked Green beans 1 cup 4.0 Carrots 1/2 cup sliced 2.3 Peas 1 cup 8.8 Potato (baked, with skin) 1 medium potato 3.8 Raw [place] (with peel) 1 cucumber 1.5 Lettuce 1 [...] 8.7 Peanuts 1/2 cup 7.9 Chart from [facility] 2013. SEEK IMMEDIATE MEDICAL CARE IF: [...] Nutrient Database for Standard Reference. Available at http://www.Immure Records.usda .gov/fnic/foodcomp/ search/. Information adapted from: [facility]? Patient Information ?2009 [employer], [facility]. [facility] 2012 [email or web address].[place]/contents/diver hmlsche-ifxkzmv-jfe qqj-iyk-plwroe Colonoscopy Care After Surgery Please read the [...] and progress (more content not included)... Normal [facility] Progress Note-Physicianon Progress Note-Physician Patient: JOVANA [...] WEEKLY, # 9 mL, Refills(s) 3, Pharmacy: [facility], 162, cm, 09/25/23 13:12:00 EDT, Height/Length Dosing, 121.7, kg, 09/25/23 13:12:00 EDT, Weight Dosing hydrochlorothiazide 25 mg Tab: 25 mg = 1 tab(s), Oral, Daily, # 90 tab(s), Refills(s) 0, Pharmacy: [facility], 162, cm, 09/25/23 13:12:00 EDT, Height/Length Dosing, 121.7, kg, 09/25/23 13:12:00 EDT, Weight Dosing losartan 100 mg Tab: 100 mg = 1 tab(s), Oral, Daily, # 90 tab(s), Refills(s) 0, Pharmacy: [facility], 162, cm, 09/25/23 13:12:00 EDT, Height/Length Dosing, 121.7, kg, 09/25/23 13:12:00 EDT, Weight Dosing metformin 500 mg Tab: See Instructions, TAKE 1 TABLET BY MOUTH EVERY DAY, # 90 tab(s), Refills(s) 3, Pharmacy: [facility], 162, cm, 09/25/22 11:02:00 EDT, Height/Length Dosing, [...] list: All Problems Asthma / SNOMED CT 845659250 / Confirmed Body mass index (BMI) of 45.0-49.9 in adult / SNOMED CT 7646297431 / Confirmed Chronic GERD / SNOMED CT 932951910 / Confirmed Colon cancer screening / SNOMED CT 007249164 / Confirmed Constipation, outlet dysfunction / SNOMED CT 35685633 / Confirmed Controlled type 2 diabetes mellitus without complication, without long-term current use of insulin / SNOMED CT 577901385 / Confirmed Derangement of knee / SNOMED CT 227767465 / Confirmed Diabetes mellitus type II, controlled / SNOMED CT 883546395 / Confirmed Extrinsic asthma with status asthmaticus / SNOMED CT 2775751938 / Confirmed Headache / SNOMED CT 02680915 / Confirmed Hemorrhoids / SNOMED CT 958906770 / Confirmed HTN (hypertension) / SNOMED CT 7337241405 / Confirmed Metabolic syndrome X / SNOMED CT 446189950 / Confirmed Morbid obesity / SNOMED CT 349791873 / Confirmed Osteoarthritis / SNOMED CT 6757247659 / Confirmed idiopathic Pain in thumb joint with movement of right hand / SNOMED CT 806246019 / Confirmed Pelvic floor dysfunction / SNOMED CT 8634900872 / Confirmed Psoriasis / SNOMED CT 43925884 / Confirmed Raynaud's phenomenon without gangrene / SNOMED CT 308015375 / Confirmed Raynauds phenomenon / SNOMED CT 250652405 / Confirmed isolated, primary S/P cholecystectomy / SNOMED CT 1257305167 / Confirmed S/P hysterectomy / SNOMED CT 473081082 / Confirmed Sciatica / SNOMED CT 90383496 / Confirmed Smoker / SNOMED CT 787616187 / Confirmed Steatosis of liver / SNOMED CT 226166135 / Confirmed 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 Normal [facility] Comment on above: Result Comment: Elec [...] WEEKLY, # 9 mL, Refills(s) 3, Pharmacy: [facility], 162, cm, 09/25/23 13:12:00 EDT, Height/Length Dosing, 121.7, kg, 09/25/23 13:12:00 EDT, Weight Dosing hydrochlorothiazide 25 mg Tab: 25 mg = 1 tab(s), Oral, Daily, # 90 tab(s), Refills(s) 0, Pharmacy: [facility], 162, cm, 09/25/23 13:12:00 EDT, Height/Length Dosing, 121.7, kg, 09/25/23 13:12:00 EDT, Weight Dosing losartan 100 mg Tab: 100 mg = 1 tab(s), Oral, Daily, # 90 tab(s), Refills(s) 0, Pharmacy: [facility], 162, cm, 09/25/23 13:12:00 EDT, Height/Length Dosing, 121.7, kg, 09/25/23 13:12:00 EDT, Weight Dosing metformin 500 mg Tab: See Instructions, TAKE 1 TABLET BY MOUTH EVERY DAY, # 90 tab(s), Refills(s) 3, Pharmacy: [facility], 162, cm, 09/25/22 11:02:00 EDT, Height/Length Dosing, [...] list: All Problems Asthma / SNOMED CT 483426364 / Confirmed Body mass index (BMI) of 45.0-49.9 in adult / SNOMED CT 8573236447 / Confirmed Chronic GERD / SNOMED CT 680964544 / Confirmed Colon cancer screening / SNOMED CT 630757821 / Confirmed Constipation, outlet dysfunction / SNOMED CT 61485863 / Confirmed Controlled type 2 diabetes mellitus without complication, without long-term current use of insulin / SNOMED CT 434951526 / Confirmed Derangement of knee / SNOMED CT 920018275 / Confirmed Diabetes mellitus type II, controlled / SNOMED CT 968816784 / Confirmed Extrinsic asthma with status asthmaticus / SNOMED CT 6827352442 / Confirmed Headache / SNOMED CT 56578125 / Confirmed Hemorrhoids / SNOMED CT 554988328 / Confirmed HTN (hypertension) / SNOMED CT 5156924144 / Confirmed Metabolic syndrome X / SNOMED CT 167170413 / Confirmed Morbid obesity / SNOMED CT 931287830 / Confirmed Osteoarthritis / SNOMED CT 9323741603 / Confirmed idiopathic Pain in thumb joint with movement of right hand / SNOMED CT 311466317 / Confirmed Pelvic floor dysfunction / SNOMED CT 6348823116 / Confirmed Psoriasis / SNOMED CT 59731319 / Confirmed Raynaud's phenomenon without gangrene / SNOMED CT 321548483 / Confirmed Raynauds phenomenon / SNOMED CT 681784168 / Confirmed isolated, primary S/P cholecystectomy / SNOMED CT 6253649461 / Confirmed S/P hysterectomy / SNOMED CT 839737049 / Confirmed Sciatica / SNOMED CT 36085262 / Confirmed Smoker / SNOMED CT 798505698 / Confirmed Steatosis of liver / SNOMED CT 586510268 / Confirmed Ulnar neuropathy / SNOMED CT 403456713 / Confirmed left arm Vitamin D3 deficiency / SNOMED CT 5599767682 / Confirmed Canceled: Fatigue / IMO 08412 Canceled: Folliculitis / IMO 43 Canceled: GERD with apnea / SNOMED CT 2057706087, Active Problems (27) Asthma Body mass index (BMI) of 45.0-49.9 in adult Chronic GERD Col (more content not included)... Normal [facility] Comment on above: Result Comment: Elec tronically Signed By: Campbell Santiago DObr\Date and Time Signed: 10/22/23 09:59 EDT Consent for Procedure/Surger yon 10-19-2023 Consent for Procedure/Surgery [id number] 439#1.00TIFF Normal [facility] Office Visiton 10-19-2023 Follow-up visit [id number] Jovana Xie A 1970 F Date Provider Department Center 10/19/2023 3848-NAVDEEP TALLEY Family History Problem Relation Age of Onset Coronary artery disease Mother Other Mother Family Status - Relation Status Age at Mother Level of Service:88181 [place] OFFICE/OUTPATIENT ESTABLISHED MOD MDM 30 MIN Normal [facility] Ambulatory Visit Summaryon 0 10-18-2023 Ambulatory [...] AM EDT With: Melissa Erazo MD Where: [facility] [place] Normal [facility] Gastroenterology Office/Clin ic Noteon 10-18-2023 Gastroenterology [...] why taking: Cardiac history? 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 Normal [facility] Comment on above: Result Comment: Elec [...] EDT With: Freeman AIKEN, Melissa Mary Where: [facility] [place] Normal [facility] CBC w/ Auto Diffon 4 Basophils/100 WBC (Bld) 0.3 % Normal 0.0-2.0 [facility] Comment on above: Performed By: #### 2 474210, [id number], 9679321, [id number] #### [facility] [address] [place] [address] Basophils/Leukocyt es Auto (Bld) [Pure # fraction] 0.0 E9/L Normal 0.0-0.2 [facility] Comment on above: Performed By: #### 2 436552, [id number], 0400749, [id number] #### [facility] [address] [place] [address] Eosinophils (Bld) [#/Vol] 0.5 E9/L Normal 0.0-0.5 [facility] Comment on above: Performed By: #### 2 410717, [id number], 9524948, [id number] #### [facility] [address] [place] [address] Eosinophils/100 WBC (Bld) 4.4 % Normal 0.0-8.0 [facility] Comment on above: Performed By: #### 2 550340, [id number], 6660447, 23354074 #### [facility] [address] [place] [address] Erythrocyte distribution width (RBC) [Ratio] 15.2 % High 10.9-14.2 [facility] Comment on above: Performed By: #### 2 551084, [id number], 3544318, 03854079 #### [facility] [address] [place] [address] Hematocrit (Bld) [Volume fraction] 38.6 % Normal 34.0-46.0 [facility] Comment on above: Performed By: #### 2 257155, 035735802, 3069903, 24373978 #### [facility] [address] [place] [address] Hemoglobin (Bld) [Mass/Vol] 12.7 g/dL Normal 12.0-16.0 [facility] Comment on above: Performed By: #### 2 950299, [id number], 9560295, 25125512 #### [facility] [address] [place] [address] Lymphocytes (Bld) [#/Vol] 2.5 E9/L Normal 1.0-4.0 [facility] Comment on above: Performed By: #### 2 052430, 690619549, 7170171, 83698127 #### [facility] [address] [place] [address] Lymphocytes/100 WBC (Bld) 23.7 % Normal 14.0-50.0 [facility] Comment on above: Performed By: #### 2 627281, 288479907, 4946401, 24289652 #### [facility] [address] [place] [address] MCH (RBC) [Entitic mass] 29.0 pg Normal 27.0-34.0 [facility] Comment on above: Performed By: #### 2 070479, 004610671, 5288774, 69369467 #### [facility] [address] [place] [address] MCHC (RBC) [Mass/Vol] 33.0 g/dL Normal 31.4-36.0 [facility] Comment on above: Performed By: #### 2 883076, 844037933, 6896276, 34713584 #### [facility] [address] [place] [address] MCV (RBC) [Entitic vol] 88.1 fL Normal 80.0-100.0 [facility] Comment on above: Performed By: #### 2 594342, 703942739, 6816445, 00225025 #### [facility] [address] [place] [address] Monocytes (Bld) [#/Vol] 0.6 E9/L Normal 0.2-1.0 [facility] Comment on above: Performed By: #### 2 266427, 851313484, 3623490, 90563972 #### [facility] [address] [place] [address] Neutrophils (Bld) [#/Vol] 7.0 E9/L Normal 2.0-7.5 [facility] Comment on above: Performed By: #### 2 880337, 961166574, 6421176, 96720505 #### [facility] [address] [place] [address] Neutrophils/100 WBC (Bld) 65.8 % Normal 36.0-75.0 [facility] Comment on above: Performed By: #### 2 755370, 994372842, 8901855, 46119393 #### [facility] [address] [place] [address] Platelet 344.0 E9/L Normal 150.0-500.0 [facility] Comment on above: Performed By: #### 2 119405, 117737254, 8323774, 70064335 #### [facility] [address] [place] [address] Platelet mean volume (Bld) [Entitic vol] 8.9 fL Normal 6.4-10.8 [facility] Comment on above: Performed By: #### 2 561471, 891545923, 2531937, 05387907 #### [facility] [address] [place] [address] RBC (Bld) [#/Vol] 4.4 E12/L Normal 4.3-5.9 [facility] Comment on above: Performed By: #### 2 902106, 020865600, 1439449, 13425239 #### [facility] [address] [place] [address] WBC corrected for nucl RBC Auto (Bld) [#/Vol] 10.6 E9/L Normal 4.0-11.0 [facility] Comment on above: Performed By: #### 2 548873, 536785363, 7194361, 84210060 #### [facility] [address] [place] [address] CHEMISTRYOrdered By: SYSTEM SYSTEM on 09-25-2023 Albumin [...] (Bld) [Mass fraction] 5.2 % Normal <=5.9% [facility] ChemAutoSS CMPon 09-25-2023 Albumin [Mass/Vol] 3.5 g/dL Normal 3.3-5.0 [facility] Comment on above: Performed By: #### 2 448417, 347416351, 2693631, 12982069 ####[facility] [address] [place] [address] Albumin/Globulin (S) [Mass conc ratio] 1.2 Normal 1.1-2.2 [facility] Comment on above: Performed By: #### 2 950270, 366373850, 2363120, 86618910 ####[facility] [address] [place] [address] ALP [Catalytic activity/Vol] 99 Int._Unit/L High 21-98 [facility] Comment on above: Performed By: #### 2 206309, 301686786, 3565082, 25457771 ####[facility] [address] [place] [address] ALT No additional P-5'-P [Catalytic activity/Vol] 30 Int._Unit/L Normal 6-46 [facility] Comment on above: Performed By: #### 2 212124, 640460074, 6376987, 20474481 ####[facility] [address] [place] [address] Anion gap [Moles/Vol] 11 mmol/L Normal 6-16 [facility] Comment on above: Performed By: #### 2 024858, 536326752, 4407340, 07332745 ####[facility] [address] [place] [address] AST [Catalytic activity/Vol] 20 Int._Unit/L Normal 5-43 [facility] Comment on above: Performed By: #### 2 997359, 574881301, 5833663, 37077407 ####[facility] [address] [place] [address] Bilirubin [Mass/Vol] 0.5 mg/dL Normal 0.0-1.1 [facility] Comment on above: Performed By: #### 2 089225, 514274197, 4164595, 58849719 ####[facility] [address] [place] [address] Calcium [Mass/Vol] 9.4 mg/dL Normal 8.9-11.1 [facility] Comment on above: Performed By: #### 2 971761, 478156130, 0615817, 15779016 ####[facility] [address] [place] [address] Chloride [Moles/Vol] 104 mmol/L Normal 101-111 [facility] Comment on above: Performed By: #### 2 335753, 846874316, 8202772, 96634984 ####[facility] [address] [place] [address] CO2 [Moles/Vol] 26 mmol/L Normal 21-31 [facility] Comment on above: Performed By: #### 2 963881, 737270096, 5871387, 29085399 ####[facility] [address] [place] [address] Creatinine [Mass/Vol] 0.8 mg/dL Normal 0.5-1.3 [facility] Comment on above: Performed By: #### 2 242527, 992107054, 7450477, 08036026 ####[facility] [address] [place] [address] Globulin (S) [Mass/Vol] 3.0 g/dL Normal 1.4-4.0 [facility] Comment on above: Performed By: #### 2 561090, 296401754, 7683051, 94691047 ####[facility] [address] [place] [address] Glucose [Mass/Vol] 113 mg/dL Normal 55-199 [facility] Comment on above: Performed By: #### 2 711840, 296641161, 5986724, 83277548 ####[address] [place] [address] Potassium [Moles/Vol] 4.3 mmol/L Normal 3.5-5.3 [facility] Comment on above: Performed By: #### 2 555337, 123886049, 1584409, 55895121 ####[facility] [address] [place] [address] Protein [Mass/Vol] 6.5 g/dL Normal 6.0-7.8 [facility] Comment on above: Performed By: #### 2 072517, 349118854, 8299306, 04522121 ####[facility] [address] [place] [address] Sodium [Moles/Vol] 137 mmol/L Normal 135-145 [facility] Comment on above: Performed By: #### 2 738640, 173433254, 5885470, 45951746 ####[facility] [address] [place] [address] Urea nitrogen [Mass/Vol] 20 mg/dL Normal 5-21 [facility] Comment on above: Performed By: #### 2 516722, 114217894, 2877209, 55809389 ####[facility] [address] [place] [address] Urea nitrogen/Creatinin e [Mass ratio] 25 No Units High 10-20 [facility] Comment on above: Performed By: #### 2 493218, 920387030, 8378355, 91507385 ####[facility] [address] [place] [address] Family Medicine Office/Clini c Noteon 09-25-2023 Family [...] Daily, # 90 tab(s), Refills(s) 0, Pharmacy: [facility], 162, cm, 09/25/23 13:12:00 EDT, Height/Length Dosing, 121.7, kg, 09/25/23 13:12:00 EDT, Weight Dosing CBC w/ Auto Diff Comprehensive Metabolic Panel [facility] Internal Ambulatory Referral HgbA1c Microalbumin Level Urine 2. Morbid obesity (E66.01: Morbid (severe) obesity due to excess calories) - Diet and exercise advised Ordered: hydrochlorothiazide , 25 mg = 1 tab(s), Oral, Daily, # 90 tab(s), Refills(s) 0, Pharmacy: [facility], 162, cm, 09/25/23 13:12:00 EDT, Height/Length Dosing, 121.7, kg, 09/25/23 13:12:00 EDT, Weight Dosing CBC w/ Auto Diff Comprehensive Metabolic Panel [facility] Internal Ambulatory Referral HgbA1c Microalbumin Level Urine 3. HTN (hypertension) (I10: Essential (primary) hypertension) - Will increase the losartan and add HCTZ. - Follow up in 1 month Ordered: hydrochlorothiazide , 25 mg = 1 tab(s), Oral, Daily, # 90 tab(s), Refills(s) 0, Pharmacy: [facility], 162, cm, 09/25/23 13:12:00 EDT, Height/Length Dosing, 121.7, kg, 09/25/23 13:12:00 EDT, Weight Dosing CBC w/ Auto Diff Comprehensive Metabolic Panel [facility] Internal Ambulatory Referral HgbA1c Microalbumin Level Urine 4. Colon cancer screening (Z12.11: Encounter for screening for malignant neoplasm of colon) - Will send for colonoscopy Ordered: hydrochlorothiazide , 25 mg = 1 tab(s), Oral, Daily, # 90 tab(s), Refills(s) 0, Pharmacy: [facility], 162, cm, 09/25/23 13:12:00 EDT, Height/Length Dosing, 121.7, kg, 09/25/23 13:12:00 EDT, Weight Dosing CBC w/ Auto Diff Comprehensive Metabolic Panel [facility] Internal Ambulatory Referral HgbA1c Microalbumin Level Urine 5. Derangement of knee (M23.90: Unspecified internal derangement of unspecified knee) - Use of cane PRN. - Follow up next month Ordered: hydrochlorothiazide , 25 mg = 1 tab(s), Oral, Daily, # 90 tab(s), Refills(s) 0, Pharmacy: [facility], 162, cm, 09/25/23 13:12:00 EDT, Height/Length Dosing, 121.7, kg, 09/25/23 13:12:00 EDT, Weight Dosing CBC w/ Auto Diff Comprehensive Metabolic Panel [facility] Internal Ambulatory Referral HgbA1c Microalbumin Level Urine 6. Body mass index (BMI) of 45.0-49.9 in adult (Z68.42: Body mass index [BMI] 45.0-49.9, adult) - BMI education discussed. - Diet and exercise advised. Ordered: hydrochlorothiazide , 25 mg = 1 tab(s), Oral, Daily, # 90 tab(s), Refills(s) 0, Pharmacy: [facility], 162, cm, 09/25/23 13:12:00 EDT, Height/Length Dosing, 121.7, kg, 09/25/23 13:12:00 EDT, Weight Dosing Orders: losartan, 100 mg = 1 tab(s), Oral, Daily, # 90 tab(s), Refills(s) 0, Pharmacy: [facility], 162, cm, 09/25/23 13:12:00 EDT, Height/Length Dosing, 121.7, kg, 09/25/23 13:12:00 EDT, Weight Dosing semaglutide, See Instructions, INJECT 1 MG SUBCUANEOUSLY WEEKLY, # 9 mL, Refills(s) 3, Pharmacy: [facility], 162, cm, 09/25/23 13:12:00 [...] with st (more content not included)... Normal [facility] Comment on above: Result Comment: Elec [...] Normal 4.0 - 11.0 E9/L Remisol Heme AifS1yjg 09-25-2023 HbA1c (Bld) [Mass fraction] 5.2 % Normal <=5.9 [facility] Comment on above: Performed By: #### 2 135137, [id number], 4888952, 46536756 ####[facility] [address] [place] [address] Patient Educationon 09-25-19 Patient Education Nutrition BMI for Adults What [...] numbers. This can be done either in [place] ([place] or metric measurements. Note that charts and online BMI calculators are available to help you find your BMI quickly and easily without having to do these calculations yourself. To calculate your BMI in [place]ian ([place] measurements: 1. Measure your weight in [...] for Disease Control and Prevention: www.cdc.gov ? [place] Heart [employer]: www.heart.org ? National Heart, Lung, and Blood [place]: www.nhlbi.nih.gov Summary ? Body mass index (BMI) is a number that is calculated from a person's weight and height. ? BMI may help estimate how much of a person's weight is composed of fat. BMI can help identify those who may be at higher risk for certain medical problems. ? BMI can be measured using [place]ian measurements or metric measurements. ? BMI charts are used to identify whether you are underweight, normal weight, overweight, or obese. This information is not intended to replace advice given to you by your health care provider. Make sure you discuss any questions you have with your health care provider. Document Revised: 02/11/2020 Document Reviewed: 12/19/2019 [employer] Patient Education ? 2022 [employer] Normal [facility] U Microalbon 09-25-2023 Albumin DL <= 20 mg/L (U) [Mass/Vol] 0.7 mg/dL Normal 0.0-1.9 [facility] Comment on above: Performed By: #### 1 [id number] ####[facility] [address] [place] [address] eGFRon 09-25-2023 eGFR 88 mL/min/1.73 m2 Normal >=59 [facility] Comment on above: Order Comment: Order added by Discern Expert. Performed By: #### 2 199433, [id number], 1158889, 19137553 ####[facility] [address] [place] [address] CT LUNG CANCER SCREENINGon 0 10-27-2022 CT [...] ALEM PASCUAL Date: 2022-10-27 09:10 Normal [facility] HEMOGLOBINon 10-27-2022 Hemoglobin (Bld) [Mass/Vol] 14.8 g/dL Normal 12.0-16.0 [facility] Comment on above: Performed By: #### H GB #### [facility] [address] [address] [address] Eron Spencer XR hand BI 3Von 10-11-2022 XR hand BI 3V [facility] [employer] Other XR hand BI 3V [facility] [employer] Other XR hand BI 3V [address] [place] [address] [employer] Other XR hand BI 3V [address] [employer] Other XR hand BI 3V XRay Report [facility] [email or web address] Other XR hand BI 3V Signed Monument [employer] Other XR hand BI 3V Patient: Jovana Xie MR#: [id number] [facility] [employer] Other XR hand BI 3V 585 [facility] [employer] Other XR hand BI 3V : 1970 Acct:[id number] [employer] Other XR hand BI 3V Age/Sex: 52 / F ADM Date: 10/11/22 [employer] Other XR hand BI 3V Loc: [facility]XD Room: Type: [facility] [employer] Other XR hand BI 3V Attending Dr: Charu Pham MD [facility] [employer] Other XR hand BI 3V Copies to: Charu Pham MD [employer] Other XR hand BI 3V Ordering Provider: Charu Pham MD [employer] Other XR hand BI 3V Date of Service: 10/11/22 [employer] Other XR hand BI 3V XR/XR hand BI 3V: Right hand pain [employer] Other XR hand BI 3V BILATERAL HANDS - 4 views each [employer] Other XR hand BI 3V COMPARISON: None [employer] Other XR hand BI 3V CLINICAL DATA: Bilateral hand pain, greatest at the right first carpometacarpal joint. Numbness at [employer] Other XR hand BI 3V the left third through fifth fingers. [employer] Other XR hand BI 3V AP, lateral, oblique and supplemental AP views of the thumbs were obtained. There are no acute [employer] Other XR hand BI 3V fractures or dislocation. No disproportionate joint space narrowing or prominent hypertrophy is [employer] Other XR hand BI 3V seen. There are no focal soft tissue abnormalities. [employer] Other XR hand BI 3V XR/XR hand BI 3V [employer] Other XR hand BI 3V IMPRESSION: [employer] Other XR hand BI 3V NO ACUTE BONY FINDINGS. [employer] Other XR hand BI 3V Impression dictated by: Daina Downs M.D.10/11/2022 2:43 PM [employer] Other XR hand BI 3V Dictation Location: [place] [address] [employer] Other XR hand BI 3V Transcribed By: DEANGELO 10/11/22 1443 [employer] Other XR hand BI 3V Dictated By: Daina Downs MD 10/11/22 [facility]2 [employer] Other XR hand BI 3V Signed By: [employer] Other XR hand BI 3V 10/11/22 1443 [employer] [facility] Other XR cerv spine AP/LAT/FLX/EXT on 06-21-2022 XR cerv spine AP/LAT/FLX/EXT [facility] [employer] Other XR cerv spine AP/LAT/FLX/EXT [facility] [employer] Other XR cerv spine AP/LAT/FLX/EXT [address] [place] [address] [employer] Other XR cerv spine AP/LAT/FLX/[place] [address] [employer] Other XR cerv spine AP/LAT/FLX/EXT XRay Report [employer] Other XR cerv spine AP/LAT/FLX/EXT Signed [employer] Other XR cerv spine AP/LAT/FLX/EXT Patient: Jovana Xie MR#: [id number] [employer] Other XR cerv spine AP/LAT/FLX/EXT 585 [employer] Other XR cerv spine AP/LAT/FLX/EXT : 1970 Acct:[id number] [employer] Other XR cerv spine AP/LAT/FLX/EXT Age/Sex: 52 / F ADM Date: 06/21/22 [employer] Other XR cerv spine AP/LAT/FLX/EXT Loc: SOX Room: Type: [facility] [employer] Other XR cerv spine AP/LAT/FLX/EXT Attending Dr: Charu Pham MD [employer] Other XR cerv spine AP/LAT/FLX/EXT Copies to: Charu Pham MD [employer] Other XR cerv spine AP/LAT/FLX/EXT Ordering Provider: Charu Pham MD [employer] Other XR cerv spine AP/LAT/FLX/EXT Date of Service: 06/21/22 [employer] Other XR cerv spine AP/LAT/FLX/EXT XR/XR cerv spine AP/LAT/FLX/EXT: Numbness of left hand [employer] Other XR cerv spine AP/LAT/FLX/EXT AP with lateral neutral, flexion extension views of the cervical spine [employer] Other XR cerv spine AP/LAT/FLX/EXT HISTORY: Cervical spine pain. Numbness and tingling of the arms [employer] Other XR cerv spine AP/LAT/FLX/EXT COMPARISON: None [employer] Other XR cerv spine AP/LAT/FLX/EXT Cervical lordosis is adequate. [employer] Other XR cerv spine AP/LAT/FLX/EXT No acute cervical spine fracture identified. [employer] Other XR cerv spine AP/LAT/FLX/EXT No cervical spine listhesis identified. [employer] Other XR cerv spine AP/LAT/FLX/EXT Disc spaces are adequate. [employer] Other XR cerv spine AP/LAT/FLX/EXT Facets are in adequate alignment. [employer] Other XR cerv spine AP/LAT/FLX/EXT No hypermobility with flexion and extension views. [employer] Other XR cerv spine AP/LAT/FLX/EXT The dens is intact. [employer] Other XR cerv spine AP/LAT/FLX/EXT The craniocervical junction is unremarkable. [employer] Other XR cerv spine AP/LAT/FLX/EXT No paraspinal soft tissue abnormality seen. Benign posterior soft tissue calcification at C7 level. [employer] Other XR cerv spine AP/LAT/FLX/EXT XR/XR cerv spine AP/LAT/FLX/EXT [employer] Other XR cerv spine AP/LAT/FLX/EXT IMPRESSION: No hypermobility. No acute cervical spine fracture. [employer] Other XR cerv spine AP/LAT/FLX/EXT Impression dictated by: Devin Norwood M.D.06/21/2022 3:15 PM [employer] Other XR cerv spine AP/LAT/FLX/EXT Dictation Location: [place] [address] [employer] Other XR cerv spine AP/LAT/FLX/EXT Transcribed By: PWS 06/21/22 [facility] [employer] Other XR cerv spine AP/LAT/FLX/EXT Dictated By: Devin Norwood DO 06/21/22 [facility] [employer] Other XR cerv spine AP/LAT/FLX/EXT Signed By: [employer] Other XR cerv spine AP/LAT/FLX/EXT 06/21/22 [facility]0 [employer] Other PAP ACOG PANEL 2: 30 to 65on 12-06-2021 . . Normal [facility] Comment on above: Result Comment: Perf ormed at: WB Performed By: #### 4 [id number] #### [facility] [address] [place] [address] Dr. Eron Spencer Age Gdln ACOG Testing 30-65 Normal [facility] Comment on above: Performed By: #### 4 [id number] #### [facility] [address] [place] [address] Dr. Eron Spencer DIAGNOSIS: Comment Normal [facility] Comment on above: Result Comment: NEGA TIVE FOR INTRAEPITHELIAL LESION OR MALIGNANCY. THIS SPECIMEN WAS RESCREENED PART OF OUR VP CARE MANAGEMENT PROGRAM. Performed at: WB Performed By: #### 4 [id number] #### [facility] [address] [place] [address] Dr. Eron Spencer HPV Aptima Negative Normal Negative [facility] Comment on above: Result Comment: This nucleic acid amplification test detects fourteen high-risk HPV types (16,18,31,33,35,39,45,51,52,56,58,59,66,68) without differentiation. Performed at: =G Performed By: #### 4 [id number] #### [facility] [address] [place] [address] Dr. Eron Spencer Methodology: Comment Normal [facility] Comment on above: Result Comment: This liquid based ThinPrep(R) pap test was screened with the use of an image guided system. Performed at: WB Performed By: #### 4 [id number] #### [facility] [address] [place] [address] Dr. Eron Spencer Note: Comment Normal [facility] Comment on above: Result Comment: The Pap smear is a screening test designed to aid in the detection of premalignant and malignant conditions of the uterine cervix. It is not a diagnostic procedure and should not be used as the sole means of detecting cervical cancer. Both false-positive and false-negative reports do occur. . Performed at: WB Performed By: #### 4 [id number] #### [facility] [address] [place] [address] Dr. Eron Spencer Performed by: Comment Normal [facility] Comment on above: Result Comment: Kimberly Duarte, Lighting Designer (ASCP) Performed at: WB Performed By: #### 4 [id number] #### [facility] [address] [place] [address] Dr. Eron Spencer QC reviewed by: Comment Normal [facility] Comment on above: Result Comment: Israel Velazquez, Supervisory Lighting Designer (ASCP) Performed at: WB Performed By: #### 4 [id number] #### [facility] [address] [address] [address] Eron Spencer Specimen adequacy: Comment Normal [facility] Comment on above: Result Comment: Sati sfactory for evaluation. No endocervical component is identified. Performed at: WB Performed By: #### 4 [id number] #### [facility] [address] [address] [address] Eron Spencer MG MAMM SCREEN 3D ARMAAN CADon 12-01-2021 MG MAMM SCREEN 3D ARMAAN CAD Patient: JOVANA XIE Exam Date: 12/01/2021 : 1970 Gender:F Ordering : DR ELVIA SWEENEY . Admission #: [id number] Family : Order #: [id number] CLICK HERE TO VIEW EXAM RADIOLOGY REPORT PROCEDURE: MAMMOGRAM SCREENING 3D BILATERAL CAD COMPARISON: DIGITIZED_MAMMO, 04/15/2010. MG MAMM SCREEN ARMAAN W CAD, 09/19/2016. INDICATIONS: Screening mammography Calculator Name NCI Breast Cancer Risk Assessment Tool 5 Year Breast Cancer Risk 0.90% Lifetime Breast Cancer Risk 8.80% Personal Breast Cancer No Personal Ovarian Cancer No Treatments None Family Cancers None LOCATION: [facility] BREAST COMPOSITION: Heterogeneously dense,which may obscure [...] Sanderson MD on 12/01/2021 at 11:45 Normal [facility] CBC AUTO DIFFon 11-30-2021 BASO # 0.0 103/ul Normal 0.0-0.1 [facility] Comment on above: Performed By: #### L IPID, CMP #### [facility] [address] [address] [address] Eron Spencer Basophils/100 WBC (Bld) 0.4 % Normal 0.2-2.0 [facility] Comment on above: Performed By: #### L IPID, CMP #### [facility] [address] [place] [address] Dr. Eron Spencer EO # 0.2 103/ul Normal 0.0-0.7 [facility] Comment on above: Performed By: #### L IPID, CMP #### [facility] [address] [place] [address] Dr. Eron Spencer Eosinophils/100 WBC (Bld) 2.0 % Normal 0.9-7.0 [facility] Comment on above: Performed By: #### L IPID, CMP #### [facility] [address] [place] [address] Dr. Eron Spencer Erythrocyte distribution width (RBC) [Ratio] 14.0 % Normal 11.0-15.0 [facility] Comment on above: Performed By: #### L IPID, CMP #### [facility] [address] [place] [address] Dr. Eron Spencer Hematocrit (Bld) [Volume fraction] 46.7 % Normal 36.0-48.0 [facility] Comment on above: Performed By: #### L IPID, CMP #### [facility] [address] [place] [address] Dr. Eron Spencer Hemoglobin (Bld) [Mass/Vol] 15.3 g/dL Normal 12.0-16.0 [facility] Comment on above: Performed By: #### L IPID, CMP #### [facility] [address] [place] [address] Dr. Eron Spencer IG # 0.03 10e3/ul Normal 0.00-0.03 [facility] Comment on above: Performed By: #### L IPID, CMP #### [facility] [address] [place] [address] Dr. Eron Spencer IG % 0.3 % Normal 0.0-0.5 [facility] Comment on above: Performed By: #### L IPID, CMP #### [facility] [address] [address] [address] Eron Spencer LYMPH # 2.7 103/ul Normal 1.2-3.8 [facility] Comment on above: Performed By: #### L IPID, CMP #### [facility] [address] [address] [address] Eron Spencer Lymphocytes/100 WBC (Bld) 29.7 % Normal 20.5-60.0 [facility] Comment on above: Performed By: #### L IPID, CMP #### [facility] [address] [address] [address] Eron Spencer MANUAL DIFF REQ NO Normal [facility] Comment on above: Performed By: #### L IPID, CMP #### [facility] [address] [place] [address] Dr. Eron Spencer MCH (RBC) [Entitic mass] 27.7 pg Normal 26.7-34.0 [facility] Comment on above: Performed By: #### L IPID, CMP #### [facility] [address] [place] [address] Dr. Eron Spencer MCHC (RBC) [Mass/Vol] 32.8 g/dL Normal 29.9-35.2 [facility] Comment on above: Performed By: #### L IPID, CMP #### [facility] [address] [place] [address] Dr. Eron Spencer MCV (RBC) [Entitic vol] 84.6 fL Normal 81.0-99.0 [facility] Comment on above: Performed By: #### L IPID, CMP #### [facility] [address] [place] [address] Dr. Eron Spencer MONO # 0.6 103/ul Normal 0.3-0.8 [facility] Comment on above: Performed By: #### L IPID, CMP #### [facility] [address] [place] [address] Dr. Eron Spencer Monocytes/100 WBC (Bld) 7.0 % Normal 1.7-12.0 [facility] Comment on above: Performed By: #### L IPID, CMP #### [facility] [address] [address] [address] Eron Spencer NEUT # 5.4 103/ul Normal 1.4-6.5 [facility] Comment on above: Performed By: #### L IPID, CMP #### [facility] [address] [place] [address] Dr. Eron Spencer Neutrophils/100 WBC (Bld) 60.6 % Normal 43.0-75.0 [facility] Comment on above: Performed By: #### L IPID, CMP #### [facility] [address] [place] [address] Dr. Eron Spencer Platelet mean volume (Bld) [Entitic vol] 10.1 fL Normal 9.5-13.5 [facility] Comment on above: Performed By: #### L IPID, CMP #### [facility] [address] [place] [address] Dr. Eron Spencer PLT 297 103/ul Normal 150-450 [facility] Comment on above: Performed By: #### L IPID, CMP #### [facility] [address] [place] [address] Dr. Eron Spencer RBC 5.52 106/ul Critically high 4.20-5.40 [facility] Comment on above: Performed By: #### L IPID, CMP #### [facility] [address] [place] [address] Dr. Eron Spencer WBC 9.0 103/ul Normal 4.0-11.0 [facility] Comment on above: Performed By: #### L IPID, CMP #### [facility] [address] [place] [address] Dr. Eron Spencer GLYCOHEMOGLOBIN A1Con 2021 ADA RECOMMENDATION SEE BELOW Normal [facility] Comment on above: Result Comment: ADA RECOMMENDED LIMIT 4.0 - 6.0 ADA THERAPEUTIC TARGET < 7.0 ACTION SUGGESTED > 7.0 Performed By: #### A 1C #### [facility] [address] [place] [address] Dr. Eron Spencer Glucose [Mass/Vol] 117 mg/dL Normal [facility] Comment on above: Performed By: #### A 1C #### [facility] [address] [place] [address] Dr. Eron Spencer HbA1c (Bld) [Mass fraction] 5.7 % Normal 4.5-6.2 [facility] Comment on above: Performed By: #### A 1C #### [facility] [address] [place] [address] Dr. Eron Spencer LIPID PROFILEon 11-30-2021 CHOL-HDL RATIO NORM SEE BELOW Normal [facility] Comment on above: Result Comment: 3.3 - 4.4 LOW RISK 4.4 - 7.1 AVERAGE RISK 7.1 - 11.0 MODERATE RISK >11.0 HIGH RISK Performed By: #### L IPID, CMP #### [facility] [address] [place] [address] Dr. Eron Spencer Cholesterol [Mass/Vol] 187 mg/dL Normal <=200 [facility] Comment on above: Performed By: #### L IPID, CMP #### [facility] [address] [place] [address] Dr. Eron Spencer Cholesterol in HDL [Mass/Vol] 42 mg/dL Normal 40-60 [facility] Comment on above: Performed By: #### L IPID, CMP #### [facility] [address] [place] [address] Dr. Eron Spencer Cholesterol in LDL [Mass/Vol] 127.4 mg/dL Normal [facility] Comment on above: Performed By: #### L IPID, CMP #### [facility] [address] [place] [address] Dr. Eron Spencer Cholesterol.total/ Cholesterol in HDL [Mass ratio] 4.5 {ratio} Normal [facility] Comment on above: Performed By: #### L IPID, CMP #### [facility] [address] [place] [address] Dr. Eron Spencer HDL NORMAL > or = 60 mg/dl - LOW CARDIOVASCULAR RISK <40 mg/dl - HIGH CARDIOVASCULAR RISK Normal [facility] Comment on above: Performed By: #### L IPID, CMP #### [facility] [address] [address] [address] Eron Spencer LDL CALC NORMAL SEE BELOW Normal [facility] Comment on above: Result Comment: <100 mg/dl OPTIMAL 100 - 129 mg/dl NEAR OR ABOVE OPTIMAL 130 - 159 mg/dl BORDERLINE HIGH 160 - 189 mg/dl HIGH >190 mg/dl VERY HIGH Performed By: #### L IPID, CMP #### [facility] [address] [address] [address] Eron Spencer Triglyceride [Mass/Vol] 88 mg/dL Normal <=150 [facility] Comment on above: Performed By: #### L IPID, CMP #### [facility] [address] [address] [address] Eron Spencer VLDL CALC 17.6 mg/dL Normal [facility] Comment on above: Performed By: #### L IPID, CMP #### [facility] [address] [place] [address] Dr. Eron Spencer PROF 14(COMP METB)on 022 Albumin [Mass/Vol] 3.3 g/dL Critically low 3.4-5.0 [facility] Comment on above: Performed By: #### L IPID, CMP #### [facility] [address] [place] [address] Dr. Eron Spencer Albumin/Globulin [Mass ratio] 0.8 {ratio} Normal [facility] Comment on above: Performed By: #### L IPID, CMP #### [facility] [address] [place] [address] Dr. Eron Spencer ALP [Catalytic activity/Vol] 132 U/L Critically high 46-116 [facility] Comment on above: Performed By: #### L IPID, CMP #### [facility] [address] [place] [address] Dr. Eron Spencer ALT [Catalytic activity/Vol] 79 U/L Critically high 14-59 [facility] Comment on above: Performed By: #### L IPID, CMP #### [facility] [address] [place] [address] Dr. Eron Spencer Anion gap [Moles/Vol] 15.4 mmol/L Normal [facility] Comment on above: Performed By: #### L IPID, CMP #### [facility] [address] [address] [address] Eron Spencer AST [Catalytic activity/Vol] 44 U/L Critically high 15-37 [facility] Comment on above: Performed By: #### L IPID, CMP #### [facility] [address] [address] [address] Eron Spencer Bilirubin [Mass/Vol] 0.6 mg/dL Normal 0.2-1.0 [facility] Comment on above: Performed By: #### L IPID, CMP #### [facility] [address] [place] [address] Dr. Eron Spencer Calcium [Mass/Vol] 9.0 mg/dL Normal 8.5-10.1 [facility] Comment on above: Performed By: #### L IPID, CMP #### [facility] [address] [place] [address] Dr. Eron Spencer Chloride [Moles/Vol] 102 mmol/L Normal 98-107 [facility] Comment on above: Performed By: #### L IPID, CMP #### [facility] [address] [place] [address] Dr. Eron Spencer CO2 [Moles/Vol] 24.5 mmol/L Normal 21.0-32.0 [facility] Comment on above: Performed By: #### L IPID, CMP #### [facility] [address] [place] [address] Dr. Eron Spencer Creatinine [Mass/Vol] 0.90 mg/dL Normal 0.55-1.02 [facility] Comment on above: Performed By: #### L IPID, CMP #### [facility] [address] [place] [address] Dr. Eron Spencer EGFR-AF SLOVENIAN >80 Normal >=60 [facility] Comment on above: Performed By: #### L IPID, CMP #### [facility] [address] [address] [address] Eron Spencer EGFR-NON AF SLOVENIAN >66 Normal >=60 [facility] Comment on above: Performed By: #### L IPID, CMP #### [facility] [address] [address] [address] Eron Spencer Globulin (S) [Mass/Vol] 4.1 g/dL Normal [facility] Comment on above: Performed By: #### L IPID, CMP #### [facility] [address] [address] [address] Eron Spencer Glucose [Mass/Vol] 96 mg/dL Normal 74-106 [facility] Comment on above: Performed By: #### L IPID, CMP #### [facility] [address] [place] [address] Dr. Eron Spencer Potassium [Moles/Vol] 3.9 mmol/L Normal 3.5-5.1 [facility] Comment on above: Performed By: #### L IPID, CMP #### [facility] [address] [place] [address] Dr. Eron Spencer Protein [Mass/Vol] 7.4 g/dL Normal 6.4-8.2 [facility] Comment on above: Performed By: #### L IPID, CMP #### [facility] [address] [address] [address] Eron Spencer Sodium [Moles/Vol] 138 mmol/L Normal 136-145 [facility] Comment on above: Performed By: #### L IPID, CMP #### [facility] [address] [place] [address] Dr. Eron Spencer Urea nitrogen [Mass/Vol] 12.0 mg/dL Normal 7.0-18.0 [facility] Comment on above: Performed By: #### L IPID, CMP #### [facility] [address] [place] [address] Dr. Eron Spencer Urea nitrogen/Creatinin e [Mass ratio] 13.3 mg/mg Normal [facility] Comment on above: Performed By: #### L IPID, CMP #### [facility] [address] [place] [address] Dr. Eron Spencer VITAMIN D 25 OHon 11-30-2021 VIT D 25-OH 35.6 ng/mL Normal [facility] Comment on above: Performed By: #### L IPID, CMP #### [facility] [address] [place] [address] Dr. Eron Spencer VIT D RANGES SEE BELOW Normal [facility] Comment on above: Result Comment: <20 ng/mL Vit D deficient 20 - <30 ng/mL Vit D insufficient 30 - 100 ng/mL Vit D sufficient >100 ng/mL Potential Toxicity Performed By: #### L IPID, CMP #### [facility] [address] [place] [address] Dr. Eron Spencer GROUP A STREP CULTUREon 11-03 S. pyogenes Ag Ql (Unsp spec) Culture Observations: NEGATIVE FOR GROUP A STREPTOCOCCUS. Normal [facility] Comment on above: Performed By: #### L IPID, CMP #### [facility] [address] [place] [address] Dr. Eron Spencer STREPT SCREENon 11-25-2021 STREP SCREEN A Negative Normal NEGATIVE [facility] Comment on above: Performed By: #### S SCRN, GRASTCX #### [facility] [address] [place] [address] Dr. Eron Spencer XR CHEST 1 Von [...] CAITLYN WATTS Date: 2021-11-25 15:41 Normal [facility] Covid-19 PCR (CVDTB)on 11-03 SARS-CoV-2 (COVID-19) RNA SAVANNAH+probe Ql (Unsp spec) Not detected Normal NOT DETECTED [facility] Comment on above: Result Comment: This test is not yet approved or cleared by the [place] FDA. When there are no FDA-approved or cleared tests available, and other criteria are met, FDA can make tests available under an emergency access mechanism called an Emergency Use Authorization (EUA). The EUA for this test is supported by the [place] of Health and Human Service's (HHS's) declaration [...] Performed By: #### L IPID, CMP #### [facility] [address] [place] [address] Dr. Eron Spencer Glucose Glucometer (BldC) [M ass/Vol]Ordered By: Charu Pham on 09-22-2021 Glucose [Mass/Vol] 97 mg/dL [facility] Comment on above: Random Glucose Refer ence Range is dependent on time and content of last meal. Glucose of more than 200 mg/dL in a nonstressed, ambulatory subject supports the diagnosis of Diabetes Mellitus. COVID-19 Positive/NegativeOr dered By: Charu Pham on 09-20-2021 SARS-CoV-2 (COVID-19) N gene SAVANNAH+probe Ql (Resp) Negative Negative [facility] Comment on above: Testing for SARS-CoV -2 by RT-PCRThis test was developed and its performance characteristics determined by [employer] ([place]) and validated at the [facility]. This test has not been FDA [...] 09-15-2021 Basophils (Bld) [#/Vol] 0.1 10*3/uL 0.0-0.2 [facility] Basophils/100 WBC Auto (Bld) Ordered By: Charu Pham on 09-15-2021 Basophils/100 WBC (Bld) 0.6 % [facility] Blood hemoglobin measurement (mass/volume)Ordered By: Charu Pham on 09-15-2021 Hemoglobin (Bld) [Mass/Vol] 13.7 g/dL 11.8-15.4 [facility] Blood leukocytes automated c ount (number/volume)Ordered By: Charu Pham on 09-15-2021 WBC (Bld) [#/Vol] 9.4 10*3/uL 4.5-11.0 [facility] Body fluid albumin measureme nt (mass/volume)Ordered By: Charu Pham on 09-15-2021 Albumin (Body fld) [Mass/Vol] 3.0 g/dL 3.2-5.5 [facility] Creatinine and Glomerular fi ltration rate.predicted panel (S/P/Bld)Ordered By: Charu Pham on 09-15-2021 Creatinine [Mass/Vol] 0.82 mg/dL 0.44-1.03 [facility] Eosinophils Auto (Bld) [#/Vo l]Ordered By: Charu Pham on 09-15-2021 Eosinophils (Bld) [#/Vol] 0.3 10*3/uL 0.0-0.45 [facility] Eosinophils/100 WBC Auto (Bl d)Ordered By: Charu Pham on 09-15-2021 Eosinophils/100 WBC (Bld) 3.1 % [facility] Erythrocyte distribution wid th Auto (RBC) [Ratio]Ordered By: Charu Pham on 09-15-2021 Erythrocyte distribution width (RBC) [Ratio] 15.0 % 11.9-15.3 [facility] Estimated glomerular filtrat ion rate (GFR) non- AmericanOrdered By: Charu Pham on 09-15-2021 GFR/1.73 sq M.predicted among non-blacks MDRD (S/P/Bld) [Vol rate/Area] > 60 mL/Min [facility] Globulin Calc (S) [Mass/Vol] Ordered By: Charu Pham on 09-15-2021 Globulin (S) [Mass/Vol] 2.9 g/dL [facility] Hematocrit Auto (Bld) [Volum e fraction]Ordered By: Charu Pham on 09-15-2021 Hematocrit (Bld) [Volume fraction] 40.8 % 34.0-46.4 [facility] - Hematology and Cell countsOrdered By: Charu Pham on 09-15-2021 Nucleated RBC/100 WBC (Bld) [Ratio] 0.0 % 0-0.5 [facility] Lymphocytes Auto (Bld) [#/Vo l]Ordered By: Charu Pham on 09-15-2021 Lymphocytes (Bld) [#/Vol] 2.3 10*3/uL 1.00-4.8 [facility] Lymphocytes/100 WBC Auto (Bl d)Ordered By: Charu Pham on 09-15-2021 Lymphocytes/100 WBC (Bld) 24.5 % [facility] MCH Auto (RBC) [Entitic mass ]Ordered By: Charu Pham on 09-15-2021 MCH (RBC) [Entitic mass] 28.4 pg 24.7-34.3 [facility] MCHC Auto (RBC) [Mass/Vol]Or dered By: Charu Pham on 09-15-2021 MCHC (RBC) [Mass/Vol] 33.6 g/dL 32.0-35.0 [facility] MCV Auto (RBC) [Entitic vol] Ordered By: Charu Pham on 09-15-2021 MCV (RBC) [Entitic vol] 84.6 fL 80-100 [facility] Monocytes Auto (Bld) [#/Vol] Ordered By: Charu Pham on 09-15-2021 Monocytes (Bld) [#/Vol] 0.9 10*3/uL 0.0-0.8 [facility] Monocytes/100 WBC Auto (Bld) Ordered By: Charu Pham on 09-15-2021 Monocytes/100 WBC (Bld) 9.7 % [facility] Neutrophils Auto (Bld) [#/Vo l]Ordered By: Charu Pham on 09-15-2021 Neutrophils (Bld) [#/Vol] 5.9 10*3/uL 1.8-7.7 [facility] Neutrophils/100 WBC Auto (Bl d)Ordered By: Charu Pham on 09-15-2021 Neutrophils/100 WBC (Bld) 62.1 % [facility] No Panel InformationOrdered By: Charu Pham on 09-15-2021 Estimated GFR () > 60 mL/Min [facility] Comment on above: GFR estimated refere nce range: According to KDOQI guidelines, <60 ml/min/1.73m2 is sufficient to diagnose a patient with chronic kidney disease. Pharmacy Creatinine Clearance (Chem N/A [facility] Platelet mean volume Auto (B ld) [Entitic vol]Ordered By: Charu Pham on 09-15-2021 Platelet mean volume (Bld) [Entitic vol] 9.1 fL 6.3-10.7 [facility] Platelets Auto (Bld) [#/Vol] Ordered By: Charu Pham on 09-15-2021 Platelets (Bld) [#/Vol] 285 10*3/uL 150-450 [facility] Protein [Mass/volume] in Ser um or PlasmaOrdered By: Charu Pham on 09-15-2021 Protein [Mass/Vol] 5.9 g/dL 6.1-7.9 [facility] RBC Auto (Bld) [#/Vol]Ordere d By: Charu Pham on 09-15-2021 RBC (Bld) [#/Vol] 4.82 10*6/uL 3.60-5.[address] [facility] Serum or plasma alanine martinez otransferase measurement without P-5'-P (enzymatic activiOrdered By: Charu Pham on 09-15-2021 ALT No additional P-5'-P [Catalytic activity/Vol] 59 U/L 10-60 [facility] Serum or plasma albumin/glob ulin mass ratioOrdered By: Charu Pham on 09-15-2021 Albumin/Globulin [Mass ratio] 1.0 {ratio} [facility] Serum or plasma alkaline sera sphatase measurement (enzymatic activity/volume)Ordered By: Charu Pham on 09-15-2021 ALP [Catalytic activity/Vol] 90 U/L 32-92 [facility] Serum or plasma aspartate am inotransferase measurement (enzymatic activity/volume)Ordered By: Charu Pham on 09-15-2021 AST [Catalytic activity/Vol] 40 U/L 10-42 [facility] Serum or plasma calcium khurram urement (mass/volume)Ordered By: Charu Pham on 09-15-2021 Calcium [Mass/Vol] 8.9 mg/dL 8.2-10.2 [facility] Serum or plasma chloride rae surement (moles/volume)Ordered By: Charu Pham on 09-15-2021 Chloride [Moles/Vol] 105 mmol/L 95-114 [facility] Serum or plasma glucose khurram urement (mass/volume)Ordered By: Charu Pham on 09-15-2021 Glucose [Mass/Vol] 94 mg/dL 70-100 [facility] Comment on above: ADA recommended refe rence rangeRandom Glucose Reference Range is dependent on time and content of last meal. Glucose of more than 200 mg/dL in a nonstressed, ambulatory subject supports the diagnosis of Diabetes Mellitus. Serum or plasma potassium me asurement (moles/volume)Ordered By: Charu Pham on 09-15-2021 Potassium [Moles/Vol] 4.3 mmol/L 3.5-5.1 [facility] Serum or plasma sodium measu rement (moles/volume)Ordered By: Charu Pham on 09-15-2021 Sodium [Moles/Vol] 140 mmol/L 136-146 [facility] Serum or plasma total biliru bin measurement (mass/volume)Ordered By: Charu Pham on 09-15-2021 Bilirubin [Mass/Vol] 0.6 mg/dL 0.3-1.2 [facility] Serum or plasma total carbon dioxide measurement (moles/volume)Ordered By: Charu Pham on 09-15-2021 CO2 [Moles/Vol] 25.2 mmol/L 22.0-30.0 [facility] Serum or plasma urea nitroge n measurement (mass/volume)Ordered By: Charu Pham on 09-15-2021 Urea nitrogen [Mass/Vol] 11 mg/dL 02-24 [facility] CNPNon 04-26-2021 CNPN Telephone (JACOBO) ---- JOVANA XIE ([id number]) 1970 F Date Time Provider Department 04/26/21 MAEGAN ANGULO During your visit today, we recorded the following information about you: [facility] 04/26/2021 10:21 AM Signed Patient called to follow up on records to see if they had been received. Informed patient that they are not in her chart at this time. Encouraged patient to have records sent to [phone]. [facility] 04/26/2021 11:57 AM Signed Records received and placed on Maris Ramirez's desk for review. [facility] Allergies As of Date: 04/26/2021 Noted Allergy Reaction DEXAMETHASONE 12/10/2020 8 - GI Upset Comments: HAIR LOSS PENICILLINS 12/10/2020 14 - Other: See Comments Comments: HIGH FEVER-CHILLS Date Reviewed: 02/10/2021 Reviewed by: Maris Ramirez, CESAR.TREATING INSPECTOR - Fully Assessed Reason for Visit: Nurse [...] by CALLI LIVE on 04/26/21 [facility] Bhumi 02-11-2021 CNPN Telephone (PAINMN) ---- JOVANA XIE ([id number]) 1970 F Date Time Provider Department 02/11/21 MARIS RAMIREZ PAINMN During your visit today, we recorded the following information about you: Maris Ramirez APRN.ILEANA 02/11/2021 7:37 AM Signed Please advise patient we received a fax from [facility]. It was the discharge page after her MRI. This is not what I had asked her to send. We need the procedure notes from her pain physician to see what procedures she has had done in the past. Thanks, Maris Ramirez APRN.ILEANA Ramirez APRN.CNP 02/11/2021 7:40 AM Signed Her provider in [place] is [facility]. Also need the EMG. [...] Encounter Status:Closed by MARIS RAMIREZ on 02/11/21 [facility] 02-02-2021 CNPN Telephone (PAINMN) ---- JOVANA XIE ([id number]) 1970 F Date Time Provider Department 02/02/21 MARIS RAMIREZ PAINMN During your visit today, we recorded the following information about you: Maris Ramirez APRN.TREATING INSPECTOR 02/02/2021 12:33 PM Signed Please advise patient [...] states she will try to get to [facility] today to get films. [facility] Allergies As of Date: 02/02/2021 Noted Allergy Reaction DEXAMETHASONE 12/10/2020 8 - GI Upset Comments: HAIR LOSS PENICILLINS 12/10/2020 14 - Other: See Comments Comments: HIGH FEVER-CHILLS Date Reviewed: 01/27/2021 Reviewed by: José Miguel Suarez, kiln placer - Fully Assessed Reason for Visit: Results [...] Encounter Status:Closed by MARIS RAMIREZ on 02/02/21 [facility] XR LUMBAR 4V AP/LAT/ FLEX/EX Ton 02-02-2021 XR LUMBAR 4V AP/LAT/ FLEX/EXT * * *Final Report* * * DATE OF EXAM: Sep 1 2021 5:22PM LNX [id number] - XR LUMBAR [...] lumbar facet arthrosis. Mild lower lumbar spondylosis. Ticket Sorter: RASHMI Transcribe Date/Time: Feb 03 2021 9:38A Dictated by : SAULO ROCA MD This examination was interpreted and the report reviewed and electronically signed by: SAULO ROCA MD on Feb 03 2021 9:44AM EST [id number] Normal [facility] XR LUMBAR MOTION 4V AP/LAT/ FLEX/EXTon 02-02-2021 [facility] MR Lumbar spine WO and W con trast [place] 01-27-2021 IMPRESSION: 1. Degenerative changes of the lumbar [...] and assume there are 5 lumbar-type vertebrae. Ticket Sorter: RASHMI Transcribe Date/Time: Jan 27 2021 11:21A Dictated by : MARIELLE SCOTT MD This examination was interpreted and the report reviewed and electronically signed by: MARIELLE SCOTT MD on Jan 27 2021 11:45AM [facility] DIVISION OF RADIOLOGY * * *Final Report* * * DATE OF EXAM: Jan 27 2021 10:37AM [facility] 0304 - MRI LUMBAR SPINE WO/W IVCON [...] and iliac wings are within normal limits. DIVISION OF RADIOLOGY Provider, [facility] [place] - 01/27/2021 * * *Final Report* * * DATE [...] and iliac wings are within normal limits. IMPRESSION IMPRESSION: 1. Degenerative changes of the lumbar [...] and assume there are 5 lumbar-type vertebrae. Ticket Sorter: RASHMI Transcribe Date/Time: Jan 27 2021 11:21A Dictated by : MARIELLE SCOTT MD This examination was interpreted and the report reviewed and electronically signed by: MARIELLE SCOTT MD on Jan 27 2021 11:45AM EST [facility] Radiology Study observation (narrative) [facility] MR Lumbar spine WO and W con trast IVOrdered By: Ccf Provider on 01-27-2021 [facility] MRI LUMBAR SPINE WO/W IVCONo [...] and assume there are 5 lumbar-type vertebrae. Ticket Sorter: PSCB Transcribe Date/Time: Jan 27 2021 11:21A Dictated by : MARIELLE SCOTT MD This examination was interpreted and the report reviewed and electronically signed by: MARIELLE SCOTT MD on Jan 27 2021 11:45AM EST [id number] Normal [facility] 12-22-2020 CNPN Telephone (PAINMN) ---- JOVANA XIE ([id number]) 1970 F Date Time Provider Department 12/22/20 MARIS RAMIREZ During your visit today, we recorded the following information about you: Maris Ramirez APRN.[facility] 12/22/2020 3:00 PM Signed ----- Message from [employer] sent at 12/22/2020 12:17 PM EDT ----- Regarding: Confidential // Denial: PtSantos Xie // // Maegan Silva all, The below information is for a peer to peer and appeal for a service you have requested. Peer to Peer Information Is a Peer to Peer available?: Yes Does Peer to Peer need to be scheduled?: No Who can schedule?: N/A Who can complete the Peer to Peer?: , PA, CUTLET [employer]KER [employer], LN Allowable Peer to Peer timeframe?: 3 business days starting from 12/20/2020 Payer Information Insurance Name: [employer] Insurance P2P option 3 Case #: [id number] Appeal Information Appeal Address: [place]. Attn: Appeals Department [address] [place] [address] Appeal Fax#: [phone] Special Appeal Instruction: Send it attention to: Appeals department and attached any pertinent supporting documenation Allowable Timeframe for Appeal: 90 days from the denial date Facility Information Location: [facility] Tax ID#: [id number] Patient Demographics Patient Last Name: Anne-Marie Patient First Name: Jovana Date of : 1970 Clinical/Denial Information Ordering Provider: Maegan Angulo Approved Services: N/A Denied Services: [id number] - MRI LUMBAR SPINE WO/W IVCON Alternative [...] NOTES:Latia ANGULO For questions, please contact April . Thank you for the Selma pritchard. Maris Ramirez APRN.TREATING INSPECTOR 12/22/2020 3:03 PM Signed Can you check [...] a call back. Maris Ramirez APRN.CNP Calli Wu Jj 12/24/2020 2:15 PM Signed Patient returned call. States that she has completed PT at [facility]. Patient given fax number to have records sent to our office. Calli Orellanae Bryce Live 12/24/2020 2:50 PM Signed PT report received from [facility]. Scanned into chart. Calli Bryce Ramirez APRN.CNP 12/24/2020 4:21 PM Signed I have now spoken to 2 physician reviewers and reviewed previous MRI and advised that PT notes are scanned into [employer]. They are requiring the PT notes be uploaded to [employer]. I sent a message to our authorization folks to have this done. She will need to reschedule the MRI. I sent her a [employer] message advising her of this. [employer] [...] 20 m (more content not included)... Normal [facility] 12-17-2020 CNPN Telephone (PAINMN) ---- JOVANA XIE ([id number]) 1970 F Date Time Provider Department 12/17/20 MAEGAN ANGULO (HIST) JACOBO During your visit today, we recorded the following information about you: Calli Wu Jj 12/17/2020 12:11 PM Signed Patient called asking if her records had been faxed to her referring provider, Asha Louis. Records faxed per patient request. Calli Bryce Live Allergies As of Date: 12/17/2020 Noted Allergy Reaction DEXAMETHASONE 12/10/2020 8 - GI Upset Comments: HAIR LOSS PENICILLINS 12/10/2020 14 - Other: See Comments Comments: HIGH FEVER-CHILLS Date Reviewed: 12/10/2020 Reviewed by: Jovana Sepulveda ROUGE MIXER - Fully Assessed Reason for Visit: Nurse [...] Encounter Status:Closed by CALLI LIVE on 12/17/20 [facility] CNOVon 12-10-2020 CNOV Office Visit (PAINMN) ---- JOVANA XIE ([id number]) 1970 F Date Time Provider Department 12/10/20 [...] internal providers or by letter via the [place] Postal Service for external providers. Chief Complaint: Back pain History of Present Illness: Jovana Xie is a 50 year old who presents to [facility] Pain Management Department for a [...] was being treated by pain management at [facility] and was receiving steroid injections with moderate [...] prior to (more content not included)... Normal [facility] OT-CT ABD/PELVIS WO CON IMPO RTon 10-17-2020 OT-CT ABD/PELVIS WO CON IMPORT Images were obtained outside of [facility] [id number] [id number] Normal [facility] Vital Signs Date Time Vital Sign Value Performing Clinician Facility 06-12-2024 12:56-0500 Body mass index (BMI) [Ratio] 50.29 kg/m2 Aparna Briseno [employer] Work Phone: [facility] 06-12-2024 12:56-0500 Body weight 132.9 kg Aparna Briseno [employer] Work Phone: [facility] 06-12-2024 12:56-0500 Diastolic blood pressure 102 mm[Hg] Aparna Briseno [employer] Work Phone: [facility] 06-12-2024 12:56-0500 Heart rate 69 /min Aparna Briseno [employer] Work Phone: [facility] 06-12-2024 12:56-0500 SaO2% (BldA) [Mass fraction] 94 % Aparna Briseno [employer] Work Phone: [facility] 06-12-2024 12:56-0500 Systolic blood pressure 154 mm[Hg] Aparna Briseno [employer] Work Phone: [facility] 04-07-2024 12:19-0500 Body mass index (BMI) [Ratio] 48.41 kg/m2 Christopher Cuba DO Work Phone: [facility] 04-07-2024 12:19-0500 Body weight 127.91 kg Christopher Cuba DO Work Phone: [facility] 04-07-2024 12:19-0500 Diastolic blood pressure 100 mm[Hg] Christopher Cuba DO Work Phone: [facility] 04-07-2024 12:19-0500 Heart rate 96 /min Christopher Cuba DO Work Phone: [facility] 04-07-2024 12:19-0500 SaO2% (BldA) [Mass fraction] 92 % Christopher Cuba DO Work Phone: [facility] 04-07-2024 12:19-0500 Systolic blood pressure 167 mm[Hg] Christopher Cuba DO Work Phone: [facility] 11-14-2023 12:31-0400 Blood Pressure Location Navdeep Valiente [facility] 11-14-2023 12:31-0400 Diastolic blood pressure 83 mm[Hg] Mohamad Mouchli [facility] 11-14-2023 12:31-0400 Heart rate 71 /min Mohamad Mouchli [facility] 11-14-2023 12:31-0400 Respiratory rate 16 /min Mohamad Mouchli [facility] 11-14-2023 12:31-0400 Systolic blood pressure 122 mm[Hg] Mohamad Mouchli [facility] 10-22-2023 11:30-0400 Blood Pressure Location Mohamad Mouchli [facility] 10-22-2023 11:30-0400 Diastolic blood pressure 64 mm[Hg] Mohamad Mouchli [facility] 10-22-2023 11:30-0400 Heart rate 63 /min Mohamad Mouchli [facility] 10-22-2023 11:30-0400 Mean blood pressure 83 mm[Hg] Mohamad Mouchli [facility] 10-22-2023 11:30-0400 Respiratory rate 13 /min Mohamad Mouchli [facility] 10-22-2023 11:30-0400 SaO2% (BldA) [Mass fraction] 93 % Mohamad Mouchli [facility] 10-22-2023 11:30-0400 Systolic blood pressure 122 mm[Hg] Mohamad Mouchli [facility] 10-22-2023 11:20-0400 Blood Pressure Location Mohamad Mouchli [facility] 10-22-2023 11:20-0400 Diastolic blood pressure 63 mm[Hg] Mohamad Mouchli [facility] 10-22-2023 11:20-0400 Heart rate 64 /min Mohamad Mouchli [facility] 10-22-2023 11:20-0400 Mean blood pressure 79 mm[Hg] Mohamad Mouchli [facility] 10-22-2023 11:20-0400 Respiratory rate 12 /min Mohamad Mouchli [facility] 10-22-2023 11:20-0400 SaO2% (BldA) [Mass fraction] 93 % Mohamad Mouchli [facility] 10-22-2023 11:20-0400 Systolic blood pressure 111 mm[Hg] Mohamad Mouchli [facility] 10-22-2023 11:05-0400 Blood Pressure Location Mohamad Mouchli [facility] 10-22-2023 11:05-0400 Diastolic blood pressure 57 mm[Hg] Mohamad Mouchli [facility] 10-22-2023 11:05-0400 Heart rate 64 /min Mohamad Mouchli [facility] 10-22-2023 11:05-0400 Mean blood pressure 72 mm[Hg] Mohamad Mouchli [facility] 10-22-2023 11:05-0400 Respiratory rate 25 /min Mohamad Mouchli [facility] 10-22-2023 11:05-0400 SaO2% (BldA) [Mass fraction] 95 % Mohamad Mouchli [facility] 10-22-2023 11:05-0400 Systolic blood pressure 102 mm[Hg] Chuckd Keirali [facility] 10-22-2023 10:52-0400 Body temperature 98.42 [degF] Chuckd Keirali [facility] 10-22-2023 09:47-0400 Body temperature 97.52 [degF] Chuckd Adanuchli [facility] 10-18-2023 09:31-0400 Blood Pressure Location Mohlaned Keirali [facility] 10-18-2023 09:31-0400 Diastolic blood pressure 82 mm[Hg] Chuckd Adanuchli [facility] 10-18-2023 09:31-0400 Heart rate 76 /min Chuckd Keirali [facility] 10-18-2023 09:31-0400 Systolic blood pressure 118 mm[Hg] Chuckd Keirali [facility] 11-08-2022 09:45-0400 Body height 162.56 cm Charu Moogi Other [facility] [employer] Other 11-08-2022 09:45-0400 Body mass index (BMI) [Ratio] 51.49 kg/m2 Charu Moogi Other [employer] Other 11-08-2022 09:45-0400 Body weight 136.08 kg Charu Moogi Other [employer] Other 10-11-2022 11:15-0400 Body height 162.56 cm Charu Moogi Other [employer] Other 10-11-2022 11:15-0400 Body mass index (BMI) [Ratio] 51.49 kg/m2 Charu Pham Other [employer] Other 10-11-2022 11:15-0400 Body weight 136.08 kg Charu Pham Other [employer] Other 06-21-2022 11:30-0500 Body height 162.56 cm Charu Pham Other [employer] Other 06-21-2022 11:30-0500 Body mass index (BMI) [Ratio] 48.06 kg/m2 Charu Ankit Other [employer] Other 06-21-2022 11:30-0500 Body weight 127.01 kg Charu Pham Other [employer] Other 09-22-2021 14:30-0400 Diastolic blood pressure 77 mm[Hg] MD Charu Pham Work Phone: [facility] 09-22-2021 14:30-0400 Heart rate 65 /min MD Charu Pham Work Phone: [facility] 09-22-2021 14:30-0400 Respiratory rate 16 /min MD Charu Pham Work Phone: [facility] 09-22-2021 14:30-0400 SaO2% (BldA) [Mass fraction] 95 % MD Charu Pham Work Phone: [facility] 09-22-2021 14:30-0400 Systolic blood pressure 131 mm[Hg] MD Charu Pham Work Phone: [facility] 09-22-2021 13:37-0400 Inhaled oxygen flow rate 8 L/min MD Charu Pham Work Phone: [facility] 09-22-2021 12:37-0400 Body height 162.56 cm MD Charu Pham Work Phone: [facility] 09-22-2021 12:37-0400 Body mass index (BMI) [Ratio] 54.1 kg/m2 Charu Pham Work Phone: [facility] 09-22-2021 12:37-0400 Body weight 143 kg Charu Pham Work Phone: [facility] 09-22-2021 11:44-0400 Body temperature 97.6 [degF] Charu Pham Work Phone: [facility] 07-29-2021 09:30-0500 Body height 162.56 cm Charu Pham Other [employer] Other 07-29-2021 09:30-0500 Body mass index (BMI) [Ratio] 53.21 kg/m2 Charu Pham Other [employer] Other 07-29-2021 09:30-0500 Body weight 140.62 kg Charu Calvdominga Other [employer] Other 06-17-2021 09:15-0500 Body height 162.56 cm Charu Pahm Other [employer] Other 06-17-2021 09:15-0500 Body mass index (BMI) [Ratio] 53.21 kg/m2 Charu Calvdominga Other [employer] Other 06-17-2021 09:15-0500 Body weight 140.62 kg Charu Calvdominga Other [employer] Other 05-20-2021 09:30-0500 Body height 162.56 cm Charu Calvdominga Other [employer] Other 05-20-2021 09:30-0500 Body mass index (BMI) [Ratio] 51.49 kg/m2 Charu Pham Other [employer] Other 05-20-2021 09:30-0500 Body weight 136.08 kg Charu Pham Other [employer] Other 03-23-2021 11:00-0400 Body height 162.56 cm Charu Pham Other [employer] Other 03-23-2021 11:00-0400 Body mass index (BMI) [Ratio] 51.15 kg/m2 Charu Pham Other [employer] Other 03-23-2021 11:00-0400 Body weight 135.17 kg Charu Pham Other [employer] Other Encounters Encounter Date Encounter Type Care Provider Facility Start: 12-04-2024 ambulatory Melissa Erazo Facility :[facility] Start: 06-26-2024 ambulatory Edenilson Wise acility:[facility] Start: 06-26-2024 End: 06-26-2024 Lab Drop off Melissa Erazo [facility] Start: 06-26-2024 End: 06-26-2024 ambulatory Melissa Erazo Facility:[facility] Start: 06-24-2024 End: 07-01-2024 ambulatory Melissa Erazo Facility:[facility] [place] Start: 06-12-2024 End: 06-12-2024 Bamboo flowsheet Aparna Briseno [employer] Work Phone: [facility] Start: 06-12-2024 End: 06-12-2024 Bamboo flowsheet Aparna Finn [employer] Work Phone: [facility] Start: 06-12-2024 End: 06-12-2024 Telephone encounter Aparna Briseno [employer] Work Phone: [facility] Start: 06-12-2024 End: 06-12-2024 Office outpatient visit 25 minutes Aparna Finn [employer] Work Phone: [facility] Comment on above: Chronic migraine wit hout aura with status migrainosus, not intractable (CMS/HCC) (Primary Dx); Lumbosacral radiculopathy; Abnormal MRI, lumbar spine; Ulnar neuropathy of left upper extremity Start: 06-12-2024 End: 06-12-2024 ambulatory APARNA BRISENO Not Available Start: 04-17-2024 End: 04-28-2024 ambulatory Melissa Erazo Facility: [facility] Start: 04-15-2024 End: 04-15-2024 ambulatory [facility] Start: 04-07-2024 End: 04-07-2024 Bamboo flowsheet Christopher Cuba DO Work Phone: [facility] [address] [facility] Start: 04-07-2024 End: 04-07-2024 Bamboo flowsheet Christopher Cuba DO Work Phone: [facility] [address] Start: 04-07-2024 End: 04-07-2024 ambulatory CHRISTJAYCE ALCANTARAETT Not Available Start: 04-07-2024 End: 04-07-2024 Office outpatient visit 25 minutes Christopher Cuba DO Work Phone: [facility] [address] Comment on above: Chronic migraine wit hout aura with status migrainosus, not intractable (CMS/HCC) (Primary Dx); Lumbosacral radiculopathy; Ulnar neuropathy of left upper extremity Start: 03-27-2024 End: 03-27-2024 ambulatory Melissa Erazo Facility: [facility] Start: 03-07-2024 End: 03-07-2024 ambulatory YUSRA Velasco [facility] Start: 03-07-2024 End: 03-07-2024 Subsequent [facility] Comment on above: Vulvar itching; 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 Start: 03-05-2024 End: 03-27-2024 ambulatory Melissa Usman Freeman Facility: [facility] [place] Start: 02-19-2024 End: 02-19-2024 ambulatory Melissa AlexSantos Freeman Facility:[facility] [place] Start: 02-15-2024 End: 02-27-2024 ambulatory Melissa Usman Erazo Facility: [facility] Start: 01-16-2024 End: 01-16-2024 ambulatory [facility] Start: 01-07-2024 End: 01-31-2024 ambulatory Melissa Usman Erazo [facility] Start: 12-27-2023 ambulatory Melissa Usman [facility] Facility :CD:[id number] Start: 12-27-2023 End: 12-27-2023 ambulatory Melissa Mary Freeman Facility:[facility] Start: 12-14-2023 End: 12-14-2023 ambulatory [facility] Start: 12-03-2023 End: 12-03-2023 ambulatory Melissa Mary Freeman Facility:[facility] [place] Start: 11-27-2023 End: 11-27-2023 ambulatory Melissa Erazo Facility:[facility] Start: 11-14-2023 End: 11-14-2023 ambulatory Navdeep Valiente Facility:[facility] Start: 11-14-2023 End: 11-14-2023 Patient encounter procedure Navdeep Valiente [facility] Start: 10-30-2023 End: 10-30-2023 ambulatory Melissasandhya Erazo Facility: [facility] [place] Start: 10-25-2023 End: 10-25-2023 ambulatory Melissa Erazo Facility: [facility] Start: 10-22-2023 End: 10-22-2023 ambulatory Navdeep Valiente Facility:[facility] Start: 10-22-2023 End: 10-22-2023 Patient encounter procedure Navdeep Valiente [facility] Start: 10-19-2023 End: 10-19-2023 ambulatory NAVDEEP TALLEY [facility] Start: 10-18-2023 End: 10-18-2023 ambulatory Melissa Erazo Facility:[facility] Start: 10-18-2023 End: 10-18-2023 Patient encounter procedure Navdeep ShirleneSantos Valiente [facility] Start: 09-26-2023 ambulatory Melissa Erazo Facility: [facility] Start: 09-25-2023 End: 09-25-2023 Lab Drop off Melissa Erazo [facility] Start: 09-25-2023 End: 09-25-2023 ambulatory Melissa Erazo Facility:[facility] Start: 11-08-2022 End: 11-08-2022 ambulatory Chrau Pham Other [employer] Other Start: 11-08-2022 Office outpatient vi sit 15 minutes Charu Calvey [facility] Start: 10-27-2022 End: 10-28-[address] ALEM PASCUAL Facility: Start: 10-11-2022 Office outpatient vi sit 15 minutes Charu Calvey [facility] Start: 10-11-2022 End: 10-11-2022 ambulatory MD Elvia Sweeney Work Phone: [facility] Work Phone: Start: 10-11-2022 End: 10-11-2022 Patient encounter procedure MD Elvia Sweeney Work Phone: [facility] Start: 09-25-2022 End: 09-25-2022 Lab Drop off Melissa Erazo [facility] Start: 01-18-2023 Office outpatient vi sit 15 minutes Charu Calvey [facility] Start: 06-21-2022 End: 06-21-2022 ambulatory MD Elvia Sweeney Work Phone: [facility] Work Phone: Start: 06-21-2022 End: 06-21-2022 Patient encounter procedure MD Elvia Sweeney Work Phone: [facility] Start: 12-27-2021 End: 12-28-[address] ELVIA SWEENEY . Facility:[facility] Start: 12-01-2021 End: 12-02-[address] ELVIA SWEENEY . Facility:[facility] Start: 11-30-2021 End: 12-01-[address] ELVIA SWEENEY . Facility:[facility] Start: 11-29-2021 End: 11-30-[address] ELVIA SWEENEY . Facility:[facility] Start: 11-25-2021 End: 11-25-2021 ambulatory BERRY VIRGEN Facility:[facility] Start: 11-23-2021 Encounter for preprocedural laboratory examination DR BRAD SHORE [facility] Start: 11-21-2021 End: 11-21-[address] BRAD SHORE Facility:[facility] Start: 11-21-2021 End: 11-21-2021 Encounter for preprocedural laboratory examination DR BRAD SHORE Facility:[facility] Start: 09-22-2021 End: 09-22-2021 Admission to same day surgery center MD Charu Pham Work Phone: [facility] [place] Start: 09-20-2021 End: 09-20-2021 Patient encounter procedure MD Charu Pham Work Phone: [facility] Start: 09-15-2021 End: 09-15-2021 Patient encounter procedure MD Charu Pham Work Phone: [facility] Mph-Lpg[facility] Start: 07-29-2021 End: 07-29-2021 ambulatory Charu Pham Other [employer] Other Start: 07-29-2021 Office outpatient vi sit 15 minutes Charu Pham [facility] Start: 06-17-2021 End: 06-17-2021 ambulatory Charu Pham Other [employer] Other Start: 06-17-2021 Postop follow up vis it related to original px Charuruth Pham [facility] Start: 05-20-2021 End: 05-20-2021 ambulatory Charu Pham Other [employer] Other Start: 05-20-2021 Postop follow up vis it related to original px Charuruth Pham [facility] Start: 03-23-2021 Encounter for other preprocedural examination Charu Pham [facility] Start: 03-23-2021 Office outpatient ne w 45 minutes Charu Pham [facility] Start: 02-02-2021 End: 02-02-2021 Subsequent hospital visit by physician [facility] Comment on above: Facet arthropathy, l umbar [M47.816] Start: 01-27-2021 End: 01-27-2021 Subsequent hospital visit by physician [facility] (1.5t) Work Phone: Radiology Comment on above: Pathological fractur e, other site, initial encounter for fracture [M84.48XA] Procedures Date Procedure Procedure Detail Performing Clinician [...] views Aparna Boudreaux MD Work Phone: Start: 01-27-2021 Mri spinal canal lumbar w/o & w/contr lin Ramirez APRN.TREATING INSPECTOR Work Phone: Start: 06-04-2005 Cardiac catheter (physical [...] Treatment Date Care Activity Detail Author Start: 07-31-2024 End: 07-31-2024 Patient encounter procedure 07/31/2024 1:00 PM EST Office Visit [facility] [address] [place] [phone] Aparna Briseno NP [address] [place] [phone] [facility] Start: 07-18-2024 ambulatory Ambulatory Facility: [facility]ine[facility] Start: 06-12-2024 End: 06-12-2025 MR Lumbar spine WO and W contrast IV MR lumbar spine w and wo contrast Imaging Routine Lumbosacral radiculopathy Abnormal MRI, lumbar spine Expected: 06/12/2024 (Approximate), Expires: 06/12/2025 [facility] Work Phone: Comment on above: Expected: 06/12/2024 (Approximate), Expires: 06/12/2025 Start: 06-12-2024 End: 06-12-2024 Patient encounter procedure [facility] Comment on above: Arrived Start: 02-03-2024 COVID-19 Vaccine ( season) COVID-19 Vaccine ( season) [facility] Start: 02-03-2024 Covid-19 Vaccine ( season) Covid-19 Vaccine ( season) [facility] Start: 02-03-2024 Influenza vaccination Influenza Vacc ine (#1) [facility] Start: 01-03-2024 Influenza vaccination Flu vaccine (# 1) [facility] Start: 02-02-2023 Influenza vaccination INFLUENZA (#1) [facility] Start: 06-04-2022 DEPRESSION ASSESSMENT DEPRESSION ASS ESSMENT [facility] Start: 2021 Shingles vaccine (1 of 2) Shingles vaccine (1 of 2) [facility] Start: 2021 SHINGRIX VACCINE (1 of 2) SHINGRIX VACCINE (1 of 2) [facility] Start: 2016 COLOGUARD (FIT-DNA) COLOGUARD (FIT-D NA) [facility] Start: 2016 Colonoscopy COLONOSCOPY [facility] Start: 2016 COLORECTAL CANCER SCREENING COLORECTAL CANCER SCREENING [facility] Start: [address] COLONOGRAPHY [facility] Start: 2016 DIABETES SCREEN DIABETES SCREEN [facility] Start: 2016 Diabetes Screening Diabetes Screenin g [facility] Start: 2016 FECAL OCCULT BLOOD FECAL OCCULT BLOO D [facility] Start: 2016 [facility]id [facility] Start: 2016 LIPID SCREEN LIPID SCREEN [facility] Start: 2016 Screening for malign ant neoplasm of colon [facility] Start: 2016 [facility]OSCOPY [facility] Start: 2011 Lipid panel Lipids DUNCAN [employer] [facility] Start: 2011 Mammography MAMMOGRAM [facility] Start: 2011 Screening for malign ant neoplasm of breast [facility] Start: 2006 Diabetes screen Diabetes screen [facility] Start: 2001 HPV TESTING HPV TESTING [facility] Start: 1992 PAP TESTING PAP TESTING [facility] Start: 1992 Screening for malign ant neoplasm of cervix Cervical Cancer Screening [facility] Start: 1990 DTaP/Tdap/Td vaccine (1 - Tdap) DTaP/Tdap/Td vaccine (1 - Tdap) [facility] Start: 1990 Hepatitis B Vaccine (1 of 3 - 19+ 3-dose series) Hepatitis B Vaccine (1 of 3 - 19+ 3-dose series) [facility] Start: 1990 Urine microalbumin profile [facility] Start: 1989 Anxiety Screening Anxiety Screening [facility] Start: 1989 Depression Screening Depression Scre ening [facility] Start: 1989 HEPATITIS C SCREENING HEPATITIS C SC REENING [facility] Start: 1989 Hepatitis C screening C [facility] Start: 1989 HIV SCREENING HIV SCREENING [facility] Start: 1989 HIV screening HIV Screening [facility] Start: 1986 HIV screening HIV screen [facility] Start: 1983 Depression Screen Depression Screen [facility] Start: 1977 PNEUMOCOCCAL (1 - PCV) PNEUMOCOCCAL (1 - PCV) [facility] Start: 1977 Pneumococcal 0-64 ye ars Vaccine (1 of 2 - PCV) Pneumococcal 0-64 years Vaccine (1 of 2 - PCV) [facility] Start: 1971 COVID-19 VACCINE (#1) COVID-19 VACCI NE (#1) [facility] Start: 1971 HEPATITIS B (1 of 3 - 3-dose series) HEPATITIS B (1 of 3 - 3-dose series) [facility] End: 03-07-2024 Culture, Genital [facility] Comment on above: 1 Occurrences starti ng 03/07/2024 until 03/07/2024 End: 03-07-2024 Cytopathology procedure, preparation of smear, genital source PAP SMEAR Lab Routine 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 1 Occurrences starting 03/07/2024 until 03/07/2024 [facility] Comment on above: 1 Occurrences starti ng 03/07/2024 until 03/07/2024 Patient referral [facility] Work Phone: Payers Date Payer Category Payer Medicare [id number] 2023 Self-pay [id number] 2022 Medicare MEDICARE [id number] 2017 Medicaid [id number]. [id number] 1971 Unknown [id number] 2.16.840.1.550348.3.579.2.593 1971 Unknown [id number] 2.16.840.1.726754.3.579.2.593 1971 Unknown [id number] 2.16.840.1.834389.3.579.2.593 1971 Unknown [id number] 2.16.840.1.523954.3.579.2.593 1971 Unknown [id number] 2.16.840.1.752287.3.579.2.593 1971 Unknown [id number] 2.16.840.1.211285.3.579.2.593 1971 Unknown [id number] 2.16.840.1.067822.3.579.2.593 1971 Unknown [id number] 2.16.840.1.981089.3.579.2.593 1971 Unknown [id number] 2.16.840.1.485235.3.579.2.593 1971 Unknown [id number] 2.16.840.1.790115.3.579.2.173 1971 Unknown [id number] 2.16.840.1.074565.3.579.2.1259 1971 Unknown [id number] 2.16.840.1.041735.3.579.2.1259 1971 Unknown [id number] 2.16.840.1.031259.3.579.2.727 1971 Unknown [id number] 2.16.840.1.859446.3.579.2.727 1971 Unknown [id number] 2.16.840.1.375725.3.579.2.727 1971 Unknown [id number] 2.16.840.1.387773.3.579.2.727 1971 Unknown [id number] 2.16.840.1.799567.3.579.2.727 1971 Unknown [id number] 2.16.840.1.911387.3.579.2.727 1971 Unknown [id number] 2.16.840.1.986888.3.579.2.727 1971 Unknown [id number] 2.16.840.1.478932.3.579.2.727 1971 Unknown [id number] 2.16.840.1.148231.3.579.2.727 1971 Unknown [id number] 2.16.840.1.555712.3.579.2.727 1971 Unknown [id number] 2.16.840.1.033745.3.579.2.727 1971 Unknown [id number] 2.16.840.1.330084.3.579.2.727 1971 Unknown [id number] 2.16.840.1.488241.3.579.2.727 1971 Unknown [id number] 2.16.840.1.844020.3.579.2.727 1971 Unknown [id number] 2.16.840.1.580135.3.579.2.727 1971 Unknown [id number] 2.16.840.1.525429.3.579.2.727 1971 Unknown [id number] 2.16.840.1.640915.3.579.2.727 1971 Unknown [id number] 2.16.840.1.365771.3.579.2.727 1971 Unknown [id number] 2.16.840.1.475631.3.579.2.727 1971 Unknown [id number] 2.16.840.1.218398.3.579.2.727 1971 Unknown [id number] 2.16.840.1.368937.3.579.2.727 1971 Unknown [id number] 2.16.840.1.012479.3.579.2.727 1959 Medicaid [id number] 1958 Medicare [id number] 2.16.840.1.680186.19 Unknown [facility] [id number] Unknown [employer] [id number] Unknown [id number] 2.16.840.1.475475.3.579.2.531 Social History Date Type Detail Facility Start: 09-15-2021 End: 09-22-2021 Tobacco smoking status GAIS Smoker (finding) [facility] Start: 1970 Sex Assigned At Female F [facility] Start: 12-10-2020 End: 10-25-2023 Sex Assigned At [facility] Start: 09-25-2022 Tobacco smoking status Heavy t obacco smoker (finding) [facility] Tobacco smoking status Never [facility] Start: 12-10-2020 End: 10-25-2023 Tobacco smoking status NHIS Smokes tobacco daily [facility] History of tobacco use Cigarette Smoker C [facility] Start: 12-10-2020 End: 10-25-2023 Cigarettes smoked current (pack per day) - Reported 0.5 [facility] Start: 01-29-2020 End: 12-10-2020 Tobacco use and exposure Smokeless tobacco non-user [facility] Start: 12-10-2020 Alcohol intake Lifetime non-d joey (finding) [facility] Start: 12-14-2020 Gender identity Identifies as female gender (finding) [facility] Start: 12-14-2020 Sexual orientation Heterosexual (fin ding) [facility] Start: 12-28-2020 End: 01-27-2021 Exposure to SARS-CoV-2 (event) Not sure [facility] Start: 09-25-2023 End: 11-14-2023 Tobacco smoking status Ex-smoker (finding) [facility] Start: 03-07-2024 Alcoholic beverage intake Current drinker of alcohol (finding) [facility] Start: 01-29-2020 Alcohol Comment social [facility] Start: 1970 Sex assigned at Not on file [facility] Start: 06-26-2024 Tobacco smoking status Light t obacco smoker (finding) [facility] Comment on above: smoked less than a 1 /2 pack a day. Goals Date Patient Goal Desired Activity /State 01-07-2024 Functional Status Date Assessment Result Facility 11-14-2023 Functional Status N/A [facility] 10-22-2023 Functional Status N/A [facility] 10-18-2023 Functional Status N/A [facility] Clinical Notes 12-10-2020 to 06-26-2024 Telephone Encounter - Aparna Briseno, [employer] - 06/12/2024 3:03 PM ESTTelephone Encounter - Aparna Briseno, [employer] - 06/12/2024 3:03 PM ESTTelephone Encounter - Sheron Heck, KAN - 06/12/2024 2:54 PM EST Note Date & Type Note Facility 06-26-2024 Note Patient Education Nutrition BMI for Adults Body mass index (BMI) is a number found using a person's weight and height. BMI can help tell how much of a person's weight is made up of fat. BMI does not measure body fat directly. It is used instead of tests that directly measure body fat, which can be difficult and expensive. What are BMI measurements used for? BMI is useful to: ??? Find out if your weight puts you at higher risk for medical problems. ??? Help recommend changes, such as in diet and exercise. This can help you reach a healthy weight. BMI screening can be done again to see if these changes are working. How is BMI calculated? Your height and weight are measured. The BMI is found from those numbers. This can be done with U.S. or metric measurements. Note that charts and online BMI calculators are available to help you find your BMI quickly and easily without doing these calculations. To calculate your BMI in U.S. measurements: 1. Measure your weight in pounds (lb). 2. Multiply the number of pounds by 703. ??? So, for an adult who weighs 150 lb, multiply that number by 703: 150 x 703, which equals 105,450. 3. Measure your height in inches. Then multiply that number by itself to get a measurement called inches squared. ??? So, for an adult who is 70 inches tall, the inches squared measurement is 70 inches x 70 inches, which equals 4,900 inches squared. 4. Divide the total from step 2 (number of lb x 703) by the total from step 3 (inches squared): 105,450 ? 4,900 = 21.5. This is your BMI. To calculate your BMI in metric measurements: 1. Measure your weight in kilograms (kg). ??? For this example, the weight is 70 kg. 2. Measure your height in meters (m). Then multiply that number by itself to get a measurement called meters squared. ??? So, for an adult who is 1.75 m tall, the meters squared measurement is 1.75 m x 1.75 m, which equals 3.1 meters squared. 3. Divide the number of kilograms (your weight) by the meters squared number. In this example: 70 ? 3.1 = 22.6. This is your BMI. What do the results mean? BMI charts are used to see if you are underweight, normal weight, overweight, or obese. The following guidelines will be used: ??? Underweight: BMI less than 18.5. ??? Normal weight: BMI between 18.5 and 24.9. ??? Overweight: BMI between 25 and 29.9. ??? Obese: BMI of 30 or above. BMI is a tool and cannot diagnose a condition. Talk with your health care provider about what your BMI means for you. Keep these notes in mind: ??? Weight includes fat and muscle. Someone with a muscular build, such as an athlete, may have a BMI that is higher than 24.9. In cases like these, BMI is not a correct measure of body fat. ??? If you have a BMI of 25 or higher, your provider may need to do more testing to find out if excess body fat is the cause. ??? BMI is measured the same way for males and females. Females usually have more body fat than males of the same height and weight. Where to find more information For more information about BMI, including tools to quickly find your BMI, go to: ??? Centers for Disease Control and Prevention: cdc.gov ??? [place] Heart Association: heart.org ??? National Heart, Lung, and Blood [place]: nhlbi.nih.gov This information is not intended to replace advice given to you by your health care provider. Make sure you discuss any questions you have with your health care provider. Document Revised: 02/08/2023 Document Reviewed: 02/01/2023 [employer] Patient Education ? 2023 [place]. [facility] 06-12-2024 Telephone encounter Note Thank you! [facility] 06-12-2024 Miscellaneous Notes Thank you! I spoke with Madeline from Dr. Erazo's office. Patient has an appointment in a few weeks, but will send a message over to the provider to see if he would like to see her sooner. The patient's blood pressure was significantly elevated at her appointment today (154/102) and also at the prior appointment (167/100). She was asymptomatic. However, this is concerning to me, as chronic hypertension can result in various adverse health effects. Can you please make her primary care provider aware and ask them to schedule an appointment with the patient to address this and help improve blood pressure control? If she does not have a PCP, I would recommend a referral for this. documented in this encounter [facility] 06-12-2024 Telephone encounter Note I spoke with Madeline from Dr. Erazo's office. Patient has an appointment in a few weeks, but will send a message over to the provider to see if he would like to see her sooner. [facility] 06-12-2024 Telephone encounter Note The patient's blood pressure was significantly elevated at her appointment today (154/102) and also at the prior appointment (167/100). She was asymptomatic. However, this is concerning to me, as chronic hypertension can result in various adverse health effects. Can you please make her primary care provider aware and ask them to schedule an appointment with the patient to address this and help improve blood pressure control? If she does not have a PCP, I would recommend a referral for this. [facility] 06-12-2024 Instructions Aparna Briseno NP - 06/12/2024 1:40 PM EST - MRI of the lumbar spine ([facility]) - Stop duloxetine documented in this encounter [facility] 04-15-2024 Note [place] Electrophysiology Consult Note [place] Cardiology - [facility] Reason for visit: Palpitations HPI: Jovana Xie is a 54 y.o. year old with past medical history of hypertension, hyperlipidemia, COPD, YU, diabetes mellitus with a previous history of atrial fibrillation has been seen by cardiology before she has been mentioned to have SVT but I do not have any records of that but previously had a stress test there was some mention of runs of SVT and PACs. She been known to have normal ejection fraction and given this she was referred to me for further evaluation. Recently she was noted to have atrial fibrillation with a heart rate in the 170s she was recently in her PCP. Dr. Erazo's office where this was noted and she improved to the ER and by the time she was noted to be in the ER she was in sinus rhythm. Patient feels that she can easily trigger her SVT by laying on the left side and a cough can terminate the tachycardia . She subsequently had an event monitor placed which was reviewed by me and showed up multiple episodes of SVT with a questionable evidence of A-fib on 10/20/2023 that was likely a PAC setting of SVT EKG 02/19/2024 shows sinus rhythm Prior EKGs from 01/16/2024 12/25/2023 11/27/2023 and 10/19/2023 were all normal PMH: Past Medical History: Diagnosis Date Asthma Dyspnea Hyperlipidemia Hypertension Insulin resistance Palpitations PSH: Past Surgical History: Procedure Laterality Date CHOLECYSTECTOMY HYSTERECTOMY SH: Social Determinants of Health Tobacco Use: High Risk (02/16/2023) Patient History Smoking Tobacco Use: Every Day Smokeless Tobacco Use: Never Passive Exposure: Not on file Alcohol Use: Not on file Financial Resource Strain: Not on file Food Insecurity: Not on file Transportation Needs: Not on file Physical Activity: Not on file Stress: Not on file Social Connections: Not on file Intimate Partner Violence: Unknown (07/26/2023) [place] Safety & Environment Fear of Current or Ex-Partner: Not on file Emotionally Abused: Not on file Physically Abused: Not on file Sexually Abused: Not on file Physically or Sexually Abused: Not on file Depression: Not on file Housing Stability: Not on file Utilities: Not on file Allergies: Allergies Allergen Reactions Dexamethasone Other HAIR LOSS Duloxetine Nausea And Vomiting Hydrocodone-Acetaminophen Lisinopril Penicillins Other HIGH FEVER-CHILLS Weight: 127kg Visit Vitals BP (!) 156/102 (BP Location: Right wrist, Patient Position: Sitting) Pulse 96 Ht 1.626 m (5' 4 ) Wt 127 kg (280 lb) SpO2 95% BMI 48.06 kg/m??? Smoking Status Every Day BSA 2.4 m??? Meds: Current Outpatient Medications on File Prior to [...] gabapentin (Neurontin) 100 mg capsule if needed. losartan (Cozaar) 100 mg tablet Take 100 mg by mouth in the morning. metFORMIN (Glucophage) 500 mg tablet metformin 500 mg tablet TAKE 1 TABLET BY MOUTH EVERY DAY nebivolol (Bystolic) 10 mg tablet Take 1 tablet (10 mg) by mouth in the morning. 90 tablet 3 rimegepant (Nurtec ODT) 75 mg tablet,disintegrating Nurtec ODT 75 mg disintegrating tablet TAKE 1 TABLET AT ONSET OF MIGRAINE, MAX 1 TABLET DAILY 2 DAYS PER WEEK semaglutide (Ozempic) 0.25 mg or 0.5 mg(2 mg/1.5 mL) pen injector Ozempic 0.25 mg or 0.5 mg (2 mg/1.5 mL) subcutaneous pen injector INJECT 0.25MG SUBCUTANEOUSLY EVERY WEEK 1 each carvedilol (Coreg) 25 mg tablet Take 1 tablet (25 mg) by mouth with breakfast and with evening meal. (Patient not taking: Reported on 04/15/2024) 180 tablet 3 hydroCHLOROthiazide (HYDRODiuril) 25 mg tablet Take 25 mg by mouth in the morning. omeprazole (PriLOSEC) [address] capsule omeprazole 40 mg capsule,delayed release TAKE 1 CAPSULE BY MOUTH EVERY MORNING 30 TO 60 MINUTES PRIOR TO BREAKFAST No current facility-administered medications on file prior to visit. ROS: Review of Systems Constitutional: Positive for malaise/fatigue. Cardiovascular: Positive for dyspnea on exertion, irregular heartbeat and palpitations. All other systems reviewed and are negative. Physical Exam: Constitutional General Appearance: well-nourished, well-developed, appears stated age Level of Distress: comfortable Psychiatric Mental Status: alert, normal affect Orientation: oriented to time, place, and person Insight: good judgement Eyes Lids a (more content not included)... [facility] 04-07-2024 History of Present illness Narrative Images from the original note were not included. Subjective Jovana Xie, 54 y.o., female Patients presents today for a follow up for migraines and back pain. She was last seen March 2023. Patient is here today with her . Patient states she was incarcerated for some time and has not been able to come. Patient states she is having migraines 5-6 times a month. She states the nurtec is helpful although she has to take two pills at times. She states her back pain has come back. She has had two falls which she thinks is why her pain has increased. This is in her lower back. She states ice has been helpful. She states her incision from her back surgery 7-8 years ago has been very itchy. Review of Systems Constitutional: Negative for appetite change, fatigue and fever. Respiratory: Negative for cough, shortness of breath and wheezing. Cardiovascular: Negative for chest pain, palpitations and leg swelling. Gastrointestinal: Negative for abdominal pain, constipation, diarrhea and nausea. Musculoskeletal: Positive for back pain. Negative for arthralgias, gait problem and myalgias. Neurological: Positive for headaches. Negative for dizziness, tremors and numbness. Past Medical History: Diagnosis Date Cervicalgia CTS (carpal tunnel syndrome) Diabetes mellitus (CMS/HCC) Disruptions of 24 hour sleep-wake cycle Disturbance of skin sensation Dizziness Elevated blood pressure reading Headache Migraine (CMS/HCC) Pain in limb Past Surgical History: Procedure Laterality Date BACK SURGERY NERVE SURGERY Bilateral Median nerve decompression surgery PARTIAL HYSTERECTOMY TONSILLECTOMY Family History Problem Relation Name Age of Onset Diabetes Other Social History Tobacco Use Smoking status: Every Day Current packs/day: 0.50 Types: Cigarettes Smokeless tobacco: Not on file Substance Use Topics Alcohol use: Not on file Allergies: Dexamethasone Vitals: 04/07/24 1219 BP: (!) 167/100 Pulse: 96 SpO2: 92% Body mass index is 48.41 kg/m . weight: 282 lb Neurologic exam: Mental status: Awake, alert to person, place and time. Recent and remote memory are intact. Language is fluent without aphasia. Attention and concentration are normal. Fund of knowledge is appropriate for level of education. Cranial nerves: CN II: Visual acuity is normal. Visual lund full to confrontation. CN III, IV, : pupils equal round and reactive to light. Extraocular movements intact. No ptosis present. CN V: Facial sensation is normal. CN VII: Full and symmetric facial movement. CN VIII: Hearing is normal to finger rub bilaterally: CN IX and X: Palate elevates symmetrically. CN XI: Shoulder shrug is normal bilaterally. CN XII: Tongue is midline without atrophy or fasciculation. Motor: RUE Strength deltoid, , biceps , triceps , wrist extensors , wrist flexor , heating and refrigeration inspector strength 5/5. LUE Strength deltoid , biceps , triceps , wrist extensors , wrist flexor , heating and refrigeration inspector strength 5/5. RLE Strength illopsoas, quadriceps, tibialis anterior, and gastrocnemius strength 5/5. LLE Strength illopsoas, quadriceps, tibialis anterior, and gastrocnemius strength 5/5. Normal tone x4 extremities. Bulk is normal. Sensory: Sensation is intact to light touch throughout Four extremities. Reflexes: RUE biceps reflex 1+ brachioradialis reflex 2+ . LUE biceps reflex 1+ brachioradialis reflex 2+ . RLE knee reflex 0 . LLE knee reflex 0 . Bustos's sign negative. Coordination: [id number] testing and rapid alternating movements are normal Gait: Normal Review and summary of old records: X-ray hips and sacroiliac joints at [facility] on 10/27/22: No acute bone abnormality or significant degenerative changes of the hip joints. Unremarkable sacroiliac joints. CPAP compliance report from 03/06/22: Revealed poor compliance. PSG and CPAP titration at [facility] on 12/27/21: Mild sleep apnea with CPAP titration at 9cm H2O EMG of RUE at [facility] on 08/10/21: Moderate median neuropathy. EMG of LUE on 10/18/20: Left ulnar neuropathy consistent with cubital tunnel syndrome. Left median neuropathy, mild. [facility] Bone Scan on 05/07/20: No suspicious radiotracer uptake within the skeletal structures with specific attention to the lumbar spine. Incidental mild uptake corresponding to degenerative facet arthropathy at L5-S1. MRI lumbar spine with contrast on 04/21/20: Nonspecific, nonenhancing 1.6 cm round, subtle area with an L4 which remains hypointense on T1 and T2. The lack of enhancement weighs against neoplasm. MRI lumbar spine w/o contrast on 11/18/19: Area of hypointense signal in the L4 vertebral body, indeterminate. Postcontrast MRI recommended. Degenerative changes resulting in foraminal stenosis at L3-L4 and L4-L5. EMG of BLE and 11/05/19: Mild bilateral S1 radiculopathies. Assessment/Plan Diagnoses and all orders for this visit: Chronic migraine without aura with status migrainosus, not intractable (CMS/HCC) It is my impression that the patient has episodic migraine. Has had 3-4 headaches per month recently for which Nurtec is highly effective. The patient was incarcerated and off medication and wishes to get back to her previous medication regimen that was very helpful for her headaches. We do need to avoid things that are cognitively impairing however. The patient had previously tried and failed propranolol, topiramate, Cymbalta, gabapentin and others for prevention. The patient had trialed and failed sumatriptan and naratriptan for abortive therapy. PLAN: - STOP topamax due to work finding difficulty. - restart duloxetine at 30mg PO every day - Continue Nurtec 75 mg ODT as needed for migraine . Proper use discussed. - Triptans and DHEs are contraindicated due to uncontrolled hypertension - Adequate hydration, sleep hygiene, and regular physical activity encouraged as tolerated Lumbosacral radiculopathy History of lumbosacral radiculopathy. BLE EMG on 11/05/19 revealed bilateral S1 radiculopathies. Lumbar spine MRI in 11/2019 revealed degenerative changes resulting in foraminal stenosis at L3-L4 and L4-L5. This is consistent with the patient's symptoms of low back pain with radiation to the lateral hips and paresthesias. Also, with BLE weakness. Probable diabetic polyneuropathy to some extent as well. The patient previously was on gabapentin 100 mg p.o. t.I.d.. Higher doses were not able to be tolerated. Even lower doses the patient is now refusing this secondary to weight gain which I think is a good idea and it can also be cognitively impairing. PLAN: - I recommended PT referral. Patient declined. - Reportedly, pain management refused to treat her. I wonder if this is due to her THC use. - Stopped gabapentin - Continue topiramate - restart duloxetine per above - I encouraged ongoing weight loss Ulnar neuropathy of left upper extremity EMG on 10/18/20 revealed a left ulnar neuropathy. Symptoms improved following decompressive surgery with Dr. Pham. Her was present for the visit today and provided additional details and history. I suggest smoking cessation. Pt has been fully educated on their diagnosis, treatment options, follow up plan, and return instructions documented in this encounter [facility] 01-16-2024 Note Pt is here for follo w up from having a stress test, an echo. Review of Systems Cardiovascular: Positive for leg swelling and palpitations. Respiratory: Positive for shortness of breath. [facility] 01-16-2024 Note Cardiovascular Medic [facility] SUBJECTIVE Chief Complaint Patient presents with Atrial Fibrillation Cardiac Stress Test ECHO Jovana Xie is a 53 y.o. female here for follow-up. HPI PMHx: HLD, HTN, COPD, YU, paroxysmal a.fib, DM, SVT She is here to follow-up on her recent testing - she underwent an ECHO, stress test and sleep study. Her ECHO and stress test were unremarkable. Sleep study was abnormal. She was unable to tolerate the masks they were trying to apply. BP running 130-140/80-90s at home, she states it is the best it has been She continues to have intermittent palpitations. Feels like there's a butterfly in her chest having a seizure. She gets SOB with exertion. She feels like her medications are making her gain weight. Denies CP, orthopnea, PND, syncope, LE edema, bleeding issues. Patient Active Problem List Diagnosis Hypertension Asthma Chronic pain syndrome Controlled type 2 diabetes mellitus without complication, without long-term current use of insulin ([facility]/HCC) Diabetes mellitus type II, controlled (CMS/HCC) Derangement of knee EVANS (dyspnea on exertion) Extrinsic asthma with status asthmaticus Headache Hemorrhoids Low back pain Metabolic syndrome X Morbid obesity ([facility]/HCC) Obesity, Class III, BMI 40-49.9 (morbid obesity) (CMS/HCC) Osteoarthritis Pain in right foot Pain in thumb joint with movement of right hand Raynaud's phenomenon without gangrene Psoriasis Palpitations Sciatica Smoker Unilateral primary osteoarthritis, left knee Ulnar neuropathy Steatosis of liver Vitamin D3 deficiency Colon cancer screening Paroxysmal atrial fibrillation (CMS/HCC) Carpal tunnel syndrome on both sides Carpal tunnel syndrome, left Chronic GERD Colon polyp Constipation, outlet dysfunction Cubital tunnel syndrome Hypersomnia Lumbar disc herniation Lumbar facet arthropathy Migraine without aura and without status migrainosus, not intractable YU (obstructive sleep apnea) Paresthesia Pelvic floor dysfunction S/P cholecystectomy S/P hysterectomy Atypical chest pain Past Medical History: Diagnosis Date Asthma Dyspnea Hyperlipidemia Hypertension Insulin resistance Palpitations Family History Problem Relation Name Age of Onset Coronary artery disease Mother Other (pacemaker) Mother Social History Tobacco Use Smoking status: Every Day Packs/day: .5 Types: Cigarettes Smokeless tobacco: Never Substance Use Topics Alcohol use: Not Currently Allergies Allergen Reactions Dexamethasone Other HAIR LOSS Hydrocodone-Acetaminophen Lisinopril Penicillins Other HIGH FEVER-CHILLS Review of Systems Constitutional: Positive for malaise/fatigue. Negative for chills, decreased appetite, fever and weight gain. Cardiovascular: Positive for dyspnea on exertion, irregular heartbeat and palpitations. Negative for chest pain, leg swelling, near-syncope, orthopnea, paroxysmal nocturnal dyspnea and syncope. Hematologic/Lymphatic: Negative for bleeding problem. Does not bruise/bleed easily. OBJECTIVE Visit Vitals BP (!) 141/92 Pulse 81 Ht 1.626 m (5' 4 ) Wt 125 kg (276 lb) SpO2 93% BMI 47.38 kg/m??? Smoking Status Every Day BSA 2.38 m??? Medications: Current Outpatient Medications: albuterol 90 mcg/actuation inhaler, albuterol sulfate HFA 90 mcg/actuation aerosol inhaler, Disp: , Rfl: apixaban (Eliquis) 5 mg tablet, Take 1 tablet (5 mg) by mouth in the morning and at bedtime., Disp: 60 tablet, Rfl: 3 carvedilol (Coreg) 25 mg tablet, Take 1 tablet (25 mg) by mouth with breakfast and with evening meal., Disp: 180 tablet, Rfl: 3 famotidine (Pepcid) 20 mg tablet, famotidine 20 mg tablet TAKE 1 TABLET BY MOUTH EVERY DAY AT BEDTIME FOR 30 DAYS, Disp: , Rfl: hydroCHLOROthiazide (HYDRODiuril) 25 mg tablet, Take 25 mg by mouth in the morning., Disp: , Rfl: losartan (Cozaar) 100 mg tablet, Take 100 mg by mouth in the morning., Disp: , Rfl: metFORMIN (Glucophage) 500 mg tablet, metformin 500 mg tablet TAKE 1 TABLET BY MOUTH EVERY DAY, Disp: , Rfl: rimegepant (Nurtec ODT) 75 mg tablet,disintegrating, Nurtec ODT 75 mg disintegrating tablet TAKE 1 TABLET AT ONSET OF MIGRAINE, MAX 1 TABLET DAILY 2 DAYS PER WEEK, Disp: , Rfl: semaglutide (Ozempic) 0.25 mg or 0.5 mg(2 mg/1.5 mL) pen injector, Ozempic 0.25 mg or 0.5 mg (2 mg/1.5 mL) subcutaneous pen injector INJECT 0.25MG SUBCUTANEOUSLY EVERY WEEK, Disp: 1 each, Rfl: Advair Diskus 250-50 mcg/dose diskus inhaler, INHALE 1 PUFF BY MOUTH TWICE A DAY *RINSE MOUTH AFTER USE*, Disp: , Rfl: budesonide-formoteroL (Symbicort) 160-4.5 mcg/actuation inhaler, Symbicort 160 mcg-4.5 mcg/actuation HFA aerosol inhaler, Disp: , Rfl: gabapentin (Neurontin) 100 mg capsule, if needed., Disp: , Rfl: omeprazole (PriLOSEC) [address] capsule, omeprazole 40 mg capsule,delayed release TAKE 1 CAPSULE BY MOUTH EVERY MORNING 30 TO 60 MINUTES P (more content not included)... [facility] 12-15-2023 Note In light of recurren t chest pain and EVANS, risk factors of HTN, DM, current smoker and obesity. Further testing with echocardiogram and stress test ordered. [facility] 12-15-2023 Note In light of EVANS, piter st pain, new onset a fib will order echocardiogram for cardiac evaluation of cardiac and valvular function, and lexiscan for cardiac perfusion- she states that she is not able to walk a treadmill r/t SOB. [facility] 12-15-2023 Note Hypertension is unch anged. Continue medications as prescribed Blood pressure will be reassessed at the next regular appointment. [facility] 12-15-2023 Note Pt states that she w as diagnosed with YU in the past and know that she needs to wear a Cpap- but she was not able to wear in the past and states she needs to be re-evaluated and f/U with sleep medicine [facility] 12-14-2023 Note Patient here for fol [...] All other systems reviewed and are negative. [facility] 12-14-2023 Note UTP CARDIOLOGY PROGR ESS [...] 130/88 and HR 141. She was in care home for 3 months and has lost 35# since last visit. Had labs recently for Dr. Erazo. She said since she wasn't getting all her meds while in care home, Dr. Erazo wanted to start from scratch [...] pen injector INJECT (more content not included)... [facility] 12-14-2023 Note [id number]- 3 fema le, HTN, DM Continue eliquis anticoagulation, and coreg Event monitor to be reviewed by Dr Pedraza RTC with Dr Pedraza in 1-3 months [facility] 12-03-2023 Note Patient Education Cardiovascular Atrial [...] these instructions at home: Medicines ? Take rtnm-reg-sgjlwcu and prescription medicines only as told by [...] A seizure. Thes (more content not included)... [facility] 10-23-2023 Note [id number] [facility] 10-22-2023 Evaluation + Plan note Extrac olesya from: Title:ANES Post General Author:Nolan Santiago DO Date:10/22/23 Plan Transfer/Discharge: Patient exhibiting no signs of N/V. Hydration status is adequate. Extracted from: Title:Jack Basic PRE Author:Jordin Santiago DO Date:10/22/23 Plan [employer] [employer] Anesthesiologists (ASA) physical status classification: Class III. Anesthetic Preoperative Plan: Anesthesia General. Future Appointments Appointment Date:10/30/2023 09:45:00 AM Scheduled Provider:Melissa Erazo MD Location:[facility] Appointment Type:[facility]05-20-2024 Hospital Discharge instructions Patient Education 10/22/2023 [...] reduce GERD symptoms. Medicines. These may include: ?Wdje-hzn-ojtnlwp antacids. ?Medicines that make your stomach empty [...] may include: ?Fatty foods, like fried foods. ?[place]a fruits, like oranges or lemon. ?Other foods [...] Do not drink alcohol. General instructions Take tvyd-cmy-kvkogai and prescription medicines only as told by [...] provider. Document Revised: 07/18/2022 Document Reviewed: 07/18/2022 [employer] Patient Education 2022 [employer]. 10/22/2023 11:00:06 Diverticulosis MAGR (CUSTOM) Diverticulosis Many [...] unsweetened, w/added ascorbic acid 1 cup 0.5 [place] 1 cup 0.7 Vegetables Cooked Green beans 1 cup 4.0 Carrots 1/2 cup sliced 2.3 Peas 1 cup 8.8 Potato (baked, with skin) 1 medium potato 3.8 Raw Pleasant [place] (with peel) 1 cucumber 1.5 Lettuce 1 [...] 8.7 Peanuts 1/2 cup 7.9 Chart from [facility] 2013. SEEK IMMEDIATE MEDICAL CARE IF: [...] Reference. Available at http://www.nal.usda.gov/fnic/foodcomp/search/. Information adapted from: [facility] Patient Information 2009 [employer]. documistic 2012 http://www.[employer]/contents/tuukjmtkxizd-ptazjaj-tldvvu-the-basics 10/22/2023 11:00:00 Colon Polyps Colon Polyps Colon [...] hard liquor (44 mL). General instructions Take gupu-kqo-yfusjln and prescription medicines only as told by [...] provider. Document Revised: 09/08/2020 Document Reviewed: 09/08/2020 [employer] Patient Education 2022 [place]. 10/22/2023 10:59:59 Colonoscopy, Care After Surgery Salam [...] day. 10/22/2023 10:59:56 Endoscopy, Care After Procedure [facility] Endoscopy Care After Procedure Please read the instructions outlined below and refer to this sheet in the next few weeks. These discharge instructions provide you with general information on caring [facility] Your doctor may also give [...] Document Re-Released: 11/12/2006 ExitCare Patient Information 2009 [employer]. Follow Up Care 10/18/2023 10:35:15 With:Navdeep Valiente Address: [address], [address] [place] [phone] Business (1) When:1 to 2 weeks Comments:Call for any problems. [facility] Subjective Jovana [...] 130/88 and HR 141. She was in care home for 3 months and has lost 35# since last visit. Had labs recently for Dr. Erazo. She said since she wasn't getting all her meds while in care home, Dr. Erazo wanted to start from scratch [...] complication, without long-term current use of insulin ([facility]) Diabetes mellitus type II, controlled ([facility]) Derangement of knee Dyspnea Extrinsic asthma with status asthmaticus Headache Hemorrhoids Low back pain Metabolic syndrome X Morbid obesity ([facility]) Obesity, Class III, BMI 40-49.9 (morbid obesity) ([facility]) Osteoarthritis Pain in right foot Pain in [...] Echo: 07/06/2021 Normal ventricu (more content not included)...[facility]06-07-2023 Evaluation note* Encounter Date Diagnosis Assessment Notes Treatment Notes Treatment Clinical Notes Nov, Right hand pain (ICD-10 - M79.641) Nov, Trigger thumb, right thumb (ICD-10 - M65.311) Patient is progressing well. May return for repeat injection or to discuss surgical release if recurs. Call with questions/concerns. [employer] Other [id number] NotePROCEDURE: XR HIPS ARMAAN 3_4V WO PELVIS, [...] Electronically authenticated by: ALEM PASCUAL Date: 2022-10-27 09:15[facility]05-26-2023 NotePROCEDURE: XR HIPS ARMAAN 3_4V WO PELVIS, [...] Electronically authenticated by: ALEM PASCUAL Date: 2022-10-27 09:15[facility]05-10-2023 Evaluation note* Encounter Date Diagnosis Assessment Notes [...] followup with neurosurgeon regarding left hand/arm numbness [employer] Other 01-18-2023 Evaluation note* Encounter Date Diagnosis [...] further treatment options. Call with questions/concerns . [employer] Other 02-25-2022 Evaluation note* Encounter Date Diagnosis Assessment Notes Treatment Notes Treatment Clinical Notes Jul, Cubital tunnel syndrome on left (ICD-10 - G56.22) Patient doing well, progress as tolerated Jul, Left carpal tunnel syndrome (ICD-10 - G56.02) Jul, Other specified postprocedural states (ICD-10 - Z98.890) Jul, Numbness of right hand (ICD-10 - R20.0) We will refer patient for EMG right upper extremity [employer] Other 12-17-2021 Evaluation note* Encounter Date Diagnosis [...] Other specified postprocedural states (ICD-10 - Z98.890) [employer] Other 10-20-2021 Evaluation note* Encounter Date Diagnosis [...] G56.02) Mar, Pre-op exam (ICD-10 - Z01.818) [employer] Other 09-09-2021 NoteHNO ID: [id number] Author: Maris Ramirez APRN.TREATING INSPECTOR Service: ? Author Type: Nurse Practitioner Type: Progress Notes Filed: 02/11/2021 7:54 AM Note Text: [facility] Virtual Visit Evaluation Patient is identified by name and date of . This is a virtual visit using [employer] video visit. It required patient-provider interaction for the medical decision making as documented below. Date: February 10, 2021 - 7:34 AM Chief Complaint: lower back pain SUBJECTIVE: Jovana Xie is a 50 year old who presents to [facility] for a [...] injections with her local pain physician in [place]. She does not recall the names of [...] areas of pain. Also photos sent via [employer] were reviewed during this visit. New Imaging [...] Obesity, Class III, BMI 40-49.9 (morbid obesity) ([facility]) Jovana Xie is a 50 year old female with lower back pain that intermittently radiates down to her buttocks and posterior legs. She is s/p lumbar decompression surgery approx 4-5 years ago. She states that she was pain free up until about a year and a half ago (more content not included)...[facility]09-01-2021 NoteHNO ID: [id number] Author: RT Nikkie(R) Service: ? Author Type: Patient Services Representative Type: Progress Notes Filed: 02/02/2021 5:23 PM [...] PERIPHERAL IV DATA: Not applicable SIGNED BY: RT Nikkie(R) February 02, 2021 5:23 [facility]08-26-2021 NoteHNO ID: [id number] Author: José Miguel Suarez, kiln placer Service: Radiology Author Type: Patient Services Representative Type: Progress Notes Filed: 01/27/2021 10:27 AM [...] Xie DATE: January 27, 2021 TIME: 10:02 [facility]08-26-2021 History of Present illness Narrative* José Miguel Suarez MRI Tech - 01/27/2021 10:00 AM EDT Radiology Service Progress Note DATE OF SERVICE: [...] Xie DATE: January 27, 2021 TIME: 10:02 AM [facility] NoteHNO ID: [id number] Author: Maegan Angulo MD Service: ? Author [...] internal providers or by letter via the [employer] for external providers. Chief Complaint: Back pain History of Present Illness: Jovana Xie is a 50 year old who presents to [facility] Department for a [...] line specific nursing protocol (more content not included)...[facility] Evaluation + Plan note No data available for this section [facility] Future Appointments Appointment Date:10/25/2023 09:30:00 AM Scheduled Provider:Melissa Erazo MD Location:[facility] Future Appointments Appointment Date:10/22/2023 10:30:00 AM Scheduled Provider: Location:[facility] Appointment Type:Surgery FT Appointment Date:10/25/2023 09:30:00 AM Scheduled Provider:Melissa Erazo MD Location:[facility] Appointment Type:[facility] Evaluation + Plan note Future Appointments Appointment Date:11/27/2023 09:15:00 AM Scheduled Provider:Melissa Erazo MD Location:[facility] Appointment Type:[facility] Evaluation + Plan note Future Appointments Appointment Date:12/04/2024 08:00:00 AM Scheduled Provider: Location:[facility] Appointment Type: Medicare Wellness Subsequent Appointment Date:12/04/2024 08:45:00 AM Scheduled Provider:Melissa Erazo MD Location:[facility] Appointment Type:[facility] evaluation noteNo assessment information available [facility] Work Phone: [facility] Other Evaluation note* Diagnosis Facet arthropathy, lumbar Lumbosacral spondylosis without myelopathy Degenerative disc disease, lumbar Degeneration of lumbar or lumbosacral intervertebral disc documented in this encounter [facility] note* Diagnosis Pathological fracture, other site, initial encounter for fracture documented in this encounter [facility] note* Diagnosis Vulvar itching Pruritus of genital organs 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 documented in this encounter [facility] note* Diagnosis Chronic migraine without aura with status migrainosus, not intractable (CMS/HCC)- Primary Lumbosacral radiculopathy Thoracic or lumbosacral neuritis or radiculitis, unspecified Ulnar neuropathy of left upper extremity [facility] Diagnosis Chronic migraine without aura with status migrainosus, not intractable (CMS/HCC)- Primary Lumbosacral radiculopathy Thoracic or lumbosacral neuritis or radiculitis, unspecified Abnormal MRI, lumbar spine Ulnar neuropathy of left upper extremity documented [facility] this [facility] Narrative - Reported* Type Description Date Medical History CARPAL TUNNEL Medical History HTN Medical History hyperglycemia Surgical History HYSTERECTOMY Surgical History TONSILECTOMY Surgical History BACK SURGERY Surgical History cholecystectomy Surgical History dental surgery Hospitalization History See Above [facility] Other History general Narrative - [facility] Other Hospital Discharge instructions No data available for this section [facility] No data available for this section [facility] Summary Purpose Family History No Family [...] Tunnel Chief Complaint R20.0 Reason for Referral Specialty Diagnoses / Procedures Referred By Chloe t Referred To Contact MR IMAGING Diagnoses Pathological fracture, other site, initial encounter for fracture Procedures MRI LUMBAR SPINE WO/W IVCON MRI, LUMBAR SPINE COMBO Maris Ramirez, SENIOR AGRICULTURAL ASSISTANT.TREATING INSPECTOR [address] [place] [address] Mr Imaging 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 DATE CREATED AUTHOR AUTHOR'S ORGANIZ ATION 06/17/2024 [facility] EPIC DATE CREATED AUTHOR AUTHOR'S ORGANIZ ATION 06/28/2024 [facility] DATE CREATED AUTHOR AUTHOR'S ORGANIZ ATION 06/28/2024 Brick Maikel [facility] DATE CREATED AUTHOR AUTHOR'S ORGANIZ ATION 07/04/2024 [facility] Care Teams (unrecognized sec tion and content) Team Status: Inactive Member Role Status Dates Charu Pham MD Attending Provider Active Elvia Sweeney MD Primary Care Provider Active Team Status: Active Member Role Status Dates Elvia Sweeney MD Primary Care Provider Active Team Status: Inactive Member Role Status Dates Elvia Sweeney MD Primary Care Provider Active Charu Pham MD Attending Provider Active Gta Relationship Specialty Start Date End Date Asha Louis PA-C [address] [place] [address] Referring Neurology 12/09/20 Gta Relationship Specialty Start Date End Date Asha Louis PA-C [address] [place], [place] [id number] Referring Neurology 12/09/20 Gta Relationship Specialty Start Date End Date Ayesha Brink DO [address] [place], [place] [id number] Referring Physician Neurology 04/04/24 Gta Relationship Specialty Start Date End Date Ayesha Brink DO [address] [place] [address] Referring Physician Neurology 04/04/24 Gta Relationship Specialty Start Date End Date Ayesha Brink DO [address] [address] Referring Physician Neurology 04/04/24 Aparna Briseno NP [address] [phone] Nurse Practitioner Neurology 04/07/24 Gta Relationship Specialty Start Date End Date Melissa Erazo MD [address] [place] [address] PCP - General Family Medicine 06/12/24 Ayesha Brink DO [address] [place] [id number] Referring Physician Neurology 04/04/24 Aparna Briseno NP [address] [phone] Nurse Practitioner Neurology 04/07/24 Gta Relationship Specialty Start Date End Date Melissa Erazo MD [address] [place] [address] PCP - General Family Medicine 06/12/24 Ayesha Brink DO [address] [address] Referring Physician Neurology 04/04/24 Aparna Briseno NP [address] [phone] Nurse Practitioner Neurology 11/4/24 Goals (unrecognized section and content) Goals may [...] FOR VISIT (unrecogniz ed section and content) Specialty Diagnoses / Procedures Referred By Contac t Referred To Contact MR IMAGING Diagnoses Pathological fracture, other site, initial encounter for fracture Procedures MRI LUMBAR SPINE WO/W IVCON MRI, LUMBAR SPINE COMBO Maris Ramirez, SENIOR AGRICULTURAL ASSISTANT.TREATING INSPECTOR [address] [place] [address] [place] [id number] Referral ID Status Reason Start Date Expiration Date V isits Requested Visits Authorized [id number] Closed Auto-Generate d Referral 01/13/2021 02/12/2021 1 1 Reason Comments Migraine Back Pain Source Comments (unrecognize d section and content) In the event this informatio n is protected by the Federal Confidentiality of Alcohol and Drug Abuse Patient Records regulations: The Federal rules restrict any use of the information to criminally investigate or prosecute any alcohol or drug abuse patient.[facility] the event this information is protected by the Federal Confidentiality of Alcohol and Drug Abuse Patient Records regulations: The Federal rules restrict any use of the information to criminally investigate or prosecute any alcohol or drug abuse patient.[facility] FOR RECORDS PERTAINING TO PATIENTS [...] BE BASED ON THE PRIMARY CLINICAL RECORDS. [employer] [facility]. provides no warranty or guarantee of the accuracy or completeness of information in this document.
== END 2024-07-08 08:31 | disposition home or self-care (01) ==
LOC: RAD 08:32
PROVIDERS: PCP Family Medicine; Visit Provider Family Medicine
DX: R09.89 Other specified symptoms and signs involving the circulatory and respiratory systems (principal)
CPT/HCPCS: 71046

== ENCOUNTER 2024-08-06 12:11 | Outpatient (OUT) | payer MEDICARE, MEDICAID, SELFPAY ==
--- NOTE | 2024-08-06 12:14 | MR_ITS ---
[address] [address] Patient Name: AGNES ROSSI MRN: [id number] date: 1970 Sex: F Assigned Patient Location: MRI Current Patient Location: MRI Accession/Order Number: [id number] Exam Date: 08/06/2024 16:22 Report Date: 08/06/2024 16:39 At the request of: PAT SCHAEFER NP Procedure: MR lumbar spine wo con EXAMINATION: MRI LUMBAR SPINE WITHOUT IV CONTRAST CLINICAL HISTORY: Lumbosacral Radiculopathy, Abnormal MRI Lumbar Spine COMPARISON: None TECHNIQUE: Multiecho imaging was performed in the sagittal and axial planes without contrast administration. FINDINGS: Vertebral body heights appear maintained. Hemangioma T12 vertebral body. Spinal cord is in normal position without oral cord signal. No paraspinal mass. Visualized retroperitoneum demonstrates no acute process. At L1-L2: No posterior disc pathology. No neural canal or foraminal stenosis. At L2-L3: No posterior disc pathology. No neural canal or foraminal stenosis. At L3-L4: Mild diffuse broad-based disc bulge is present with facet joint degenerative changes causing mild canal and mild left-sided neural foraminal stenosis. At L4-L5: Diffuse broad-based disc bulge is present causing mild canal and moderate right-sided foraminal stenosis. Facet joint degenerative change. At L5-S1: No posterior disc pathology. No neural canal or foraminal stenosis. MR/MR lumbar spine wo con IMPRESSION: Diffuse broad-based disc bulge is present at the level of L4-L5 causing mild canal and moderate right-sided neural foraminal stenosis. Mild diffuse broad-based disc bulge is present at L3-L4 causing mild canal and mild left-sided neural foraminal stenosis. Impression dictated by: Darrel Herr Jr., D.O.08/06/2024 4:39 PM Dictation Location: [place] [address] Electronically authenticated by: [id number] Y Date: 08/06/2024 16:39
--- OUTSIDE RECORDS SUMMARY | 2024-08-06 12:19 | XMS_ITS | CCD ---
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 MiraLAX/prunes Repeat colonoscopy after 5 years EGD/Colon w/ Dr Valiente 10/22/23 Impression and [...] POLYP, SIGMOID COLON, POLYPECTOMY: - Tubular adenoma Review of Systems PHQ Score Initial Depression Screen Score: 0 SCORE All systems reviewed, negative except as mentioned above Physical Exam Vitals & Measurements HR: 79(Peripheral) RR: 14 BP: 152/105 HT: 64 in HT: 162 cm WT: 130 kg WT: 286.601 lb BMI: 49.54 I have reviewed HPI staff note, most recent labs and imaging, I agree with the above documentation with the following additions/exception s : PT with upset stomach from orange pill which she took for acid reflux - lots of coughing and bloating famotidine was not help purple pill was helping constipation still there- using miralax no weight loss yet - gained some weight back General: alert, no acute distress HEENT: atraumatic normocephalic Cardiovascular: regular rate and rhythm, normal peripheral perfusion Respiratory: Lungs CTA, respirations non labored Extremities: no deformity, no trauma Abdomen: Benign, soft, nontender nondistended Assessment/Plan 1. Chronic GERD (K21.9: Gastro-esophageal reflux disease without esophagitis) 2. Body mass index (BMI) of 45.0-49.9 in adult (Z68.42: Body mass index [BMI] 45.0-49.9, adult) 3. Constipation, outlet dysfunction (K59.02: Outlet dysfunction constipation) 4. Colon polyp (K63.5: Polyp of colon) 5. Metabolic syndrome X (E88.810: Metabolic syndrome) Restart Nexium 40 mg daily Patient will benefit from losing weight. Encouraged to continue to work on diet Follow GERD measures and diet Continue MiraLAX as needed for constipation Continue Ozempic for weight loss Follow-up No qualifying data available Problem List/Past Medical History Ongoing Afib Body mass index (BMI) of 45.0-49.9 in adult Chronic GERD Colon cancer screening Colon polyp Constipation, outlet dysfunction Controlled type 2 diabetes mellitus without complication, without long-term current use of insulin Derangement of knee Extrinsic asthma with status asthmaticus Headache Hemorrhoids Hiatal hernia HLD (hyperlipidemia) HTN (hypertension) Metabolic syndrome X Morbid obesity Obesity due to excess calories Osteoarthritis Pain in thumb joint with movement of right hand Pelvic floor dysfunction Polycythemia Psoriasis Raynaud's phenomenon without gangrene Raynauds phenomenon Rhonchi at right lung base S/P cholecystectomy S/P hysterectomy Sciatica Smoker Steatosis [...] Tab, 100 mg= 1 tab(s), Oral, q12hr Lipitor 40 mg Tab, 40 mg= 1 tab(s), Oral, Daily metformin 500 mg Tab, See Instructions Nurtec ODT 75 mg oral tablet, disintegrating, (more content not included)... Normal [facility] Comment on above: Result Comment: Elec tronically Signed By: Steffanie AIKEN, Navdeep Rodríguez\.br\Date and Time Signed: 07/18/24 09:19 EST Ambulatory Visit Summaryon 0 06-26-2024 Ambulatory Visit [...] to provider - Not done Consult with lathe machinist - Not done Review educational material - [...] health - Not met Interventions: Consult with lathe machinist - Not done eat a well balanced [...] Your Medications List omeprazole (omeprazole 40 mg Cap-) Contact prescribing physician if questions or concerns [...] Appointments 2024 8:00 AM EDT With: Where: [address] [address] 2024 8:45 AM EDT With: Castro AIKEN, Melissa Mary Where: [address] [address]- Medications What How Much When Instructions New omeprazole (omeprazole 40 mg Cap-DR) 1 Capsules By Mouth Every day Pickup at [facility]/pharmacy #[id number] Unchanged albuterol (Albuterol (Eqv-Ventolin HFA) 90 mcg/ [...] onset of (more content not included)... Normal [facility] CBC w/ Auto Diffon 5 Basophils/100 WBC (Bld) 0.4 % Normal 0.0-2.0 [facility] Comment on above: Performed By: #### 2 [id number] #### [facility] [address] [place] [address] Basophils/Leukocyt es Auto (Bld) [Pure # fraction] 0.0 E9/L Normal 0.0-0.2 [facility] Comment on above: Performed By: #### 2 [id number] #### [facility] [address] [place] [address] Eosinophils (Bld) [#/Vol] 0.2 E9/L Normal 0.0-0.5 [facility] Comment on above: Performed By: #### 2 [id number] #### [facility] [address] [place] [address] Eosinophils/100 WBC (Bld) 2.5 % Normal 0.0-8.0 [facility] Comment on above: Performed By: #### 2 [id number] #### [facility] [address] [place] [address] Erythrocyte distribution width (RBC) [Ratio] 14.6 % High 10.9-14.2 [facility] Comment on above: Performed By: #### 2 [id number] #### [facility] [address] [place] [address] Hematocrit (Bld) [Volume fraction] 47.5 % High 34.0-46.0 [facility] Comment on above: Performed By: #### 2 [id number] #### [facility] [address] [place] [address] Hemoglobin (Bld) [Mass/Vol] 16.1 g/dL High 12.0-16.0 [facility] Comment on above: Performed By: #### 2 [id number] #### [facility] [address] [place] [address] Lymphocytes (Bld) [#/Vol] 2.6 E9/L Normal 1.0-4.0 [facility] Comment on above: Performed By: #### 2 [id number] #### [facility] [address] [place] [address] Lymphocytes/100 WBC (Bld) 27.5 % Normal 14.0-50.0 [facility] Comment on above: Performed By: #### 2 [id number] #### [facility] [address] [place] [address] MCH (RBC) [Entitic mass] 29.8 pg Normal 27.0-34.0 [facility] Comment on above: Performed By: #### 2 [id number] #### [facility] [address] [place] [address] MCHC (RBC) [Mass/Vol] 34.0 g/dL Normal 31.4-36.0 [facility] Comment on above: Performed By: #### 2 [id number] #### [facility] [address] [place] [address] MCV (RBC) [Entitic vol] 87.6 fL Normal 80.0-100.0 [facility] Comment on above: Performed By: #### 2 [id number] #### [facility] [address] [place] [address] Monocytes (Bld) [#/Vol] 0.8 E9/L Normal 0.2-1.0 [facility] Comment on above: Performed By: #### 2 [id number] #### [facility] [address] [place] [address] Neutrophils (Bld) [#/Vol] 5.7 E9/L Normal 2.0-7.5 [facility] Comment on above: Performed By: #### 2 [id number] #### [facility] [address] [place] [address] Neutrophils/100 WBC (Bld) 61.1 % Normal 36.0-75.0 [facility] Comment on above: Performed By: #### 2 [id number] #### [facility] [address] [place] [address] Platelet 298.0 E9/L Normal 150.0-500.0 [facility] Comment on above: Performed By: #### 2 [id number] #### [facility] [address] [place] [address] Platelet mean volume (Bld) [Entitic vol] 9.6 fL Normal 6.4-10.8 [facility] Comment on above: Performed By: #### 2 842321 #### [facility] [address] [place] [address] RBC (Bld) [#/Vol] 5.4 E12/L Normal 4.3-5.9 [facility] Comment on above: Performed By: #### 2 [id number] #### [facility] [address] [place] [address] WBC corrected for nucl RBC Auto (Bld) [#/Vol] 9.3 E9/L Normal 4.0-11.0 [facility] Comment on above: Performed By: #### 2 [id number] #### [facility]ier[facility] [address] [place] [address] CHEMISTRYOrdered By: SYSTEM SYSTEM on 06-26-2024 Albumin [...] (Bld) [Mass fraction] 5.6 % Normal <=5.9% [facility] ChemAutoSS CMPon 06-26-2024 Albumin [Mass/Vol] 4.2 g/dL Normal 3.3-5.0 [facility] Comment on above: Performed By: #### 2 [id number] #### [facility] [address] [place] [address] Albumin/Globulin (S) [Mass conc ratio] 1.5 Normal 1.1-2.2 [facility] Comment on above: Performed By: #### 2 [id number] #### [facility] [address] [place] [address] ALP [Catalytic activity/Vol] 106 Int._Unit/L High 21-98 [facility] Comment on above: Performed By: #### 2 [id number] #### [facility] [address] [place] [address] ALT No additional P-5'-P [Catalytic activity/Vol] 24 Int._Unit/L Normal 6-46 [facility] Comment on above: Performed By: #### 2 [id number] #### [facility] [address] [place] [address] Anion gap [Moles/Vol] 10 mmol/L Normal 6-16 [facility] Comment on above: Performed By: #### 2 [id number] #### [facility] [address] [place] [address] AST [Catalytic activity/Vol] 18 Int._Unit/L Normal 5-43 [facility] Comment on above: Performed By: #### 2 [id number] #### [facility] [address] [place] [address] Bilirubin [Mass/Vol] 0.5 mg/dL Normal 0.0-1.1 [facility] Comment on above: Performed By: #### 2 [id number] #### [facility] [address] [place] [address] Calcium [Mass/Vol] 10.0 mg/dL Normal 8.9-11.1 [facility] Comment on above: Performed By: #### 2 [id number] #### [facility] [address] [place] [address] Chloride [Moles/Vol] 105 mmol/L Normal 101-111 [facility] Comment on above: Performed By: #### 2 [id number] #### [facility] [address] [place] [address] CO2 [Moles/Vol] 29 mmol/L Normal 21-31 [facility] Comment on above: Performed By: #### 2 [id number] #### [facility] [address] [place] [address] Creatinine [Mass/Vol] 1.0 mg/dL Normal 0.5-1.3 [facility] Comment on above: Performed By: #### 2 [id number] #### [facility] [address] [place] [address] Globulin (S) [Mass/Vol] 2.8 g/dL Normal 1.4-4.0 [facility] Comment on above: Performed By: #### 2 [id number] #### [facility] [address] [place] [address] Glucose [Mass/Vol] 99 mg/dL Normal 55-199 [facility] Comment on above: Performed By: #### 2 [id number] #### [facility] [address] [place] [address] Potassium [Moles/Vol] 4.3 mmol/L Normal 3.5-5.3 [facility] Comment on above: Performed By: #### 2 [id number] #### [facility] [address] [place] [address] Protein [Mass/Vol] 7.0 g/dL Normal 6.0-7.8 [facility] Comment on above: Performed By: #### 2 803232 #### [facility] [address] [place] [address] Sodium [Moles/Vol] 140 mmol/L Normal 135-145 [facility] Comment on above: Performed By: #### 2 [id number] #### [facility] [address] [place] [address] Urea nitrogen [Mass/Vol] 21 mg/dL Normal 5-21 [facility] Comment on above: Performed By: #### 2 [id number] #### [facility] [address] [place] [address] Urea nitrogen/Creatinin e [Mass ratio] 21 No Units High 10-20 [facility] Comment on above: Performed By: #### 2 143566 #### [facility] [address] [place] [address] Family Medicine Office/Clini c Noteon 06-26-2024 Family [...] respiratory issues. - Recommended discussion with a instructional materials director about persistent lung issues. Review of Systems [...] CBC w/ Auto Diff Comprehensive Metabolic Panel [facility] Internal Ambulatory Referral HgbA1c Lipid Panel Microalbumin Level Urine 2. Controlled type 2 diabetes mellitus without complication, without long-term current use of insulin (E11.9: Type 2 diabetes mellitus without complications) Maintain current diabetes regime; Recheck labs at this time. Ordered: CBC w/ Auto Diff Comprehensive Metabolic Panel [facility] Internal Ambulatory Referral HgbA1c Lipid Panel Microalbumin Level Urine 3. Chronic GERD (K21.9: Gastro-esophageal reflux disease without esophagitis) Transition back to omeprazole; if symptoms persist, proceed with EGD referral. Ordered: CBC w/ Auto Diff Comprehensive Metabolic Panel [facility] Internal Ambulatory Referral HgbA1c Lipid Panel Microalbumin Level Urine 4. Smoker (F17.200: Nicotine dependence, unspecified, uncomplicated) Encourage smoking cessation strategies and consider supportive therapies or resources. Ordered: CBC w/ Auto Diff Comprehensive Metabolic Panel [facility] Internal Ambulatory Referral HgbA1c Lipid Panel Microalbumin Level Urine 5. Morbid obesity with BMI of 50.0-59.9, adult (E66.01: Morbid (severe) obesity due to excess calories) Address lifestyle modifications, continue monitoring BMI, and public relations counselor on weight management strategies. Ordered: CBC w/ Auto Diff Comprehensive Metabolic Panel [facility] Internal Ambulatory Referral HgbA1c [...] CXR. Will have patient follow up with pulm navarro (more content not included)... Normal [facility] Comment on above: Result Comment: Elec tronically Signed By: Castro AIKEN, Melissa Dasilvabr\Date and Time Signed: 06/26/24 10:28 EST HEMATOLOGYOrdered [...] Normal 4.0 - 11.0 E9/L Remisol Heme [id number] 06-26-2024 HbA1c (Bld) [Mass fraction] 5.6 % Normal <=5.9 [facility] Comment on above: Performed By: #### 7 [id number] #### [facility] [address] [place] [address] Lipid Panelon 06-26-2024 Cholesterol [Mass/Vol] 228 mg/dL High 120-200 [facility] Comment on above: Performed By: #### 2 [id number] #### [facility] [address] [place] [address] Cholesterol in HDL [Mass/Vol] 41 mg/dL Invalid Interpretation Code [facility] Comment on above: Result Comment: '>= 60 LOW RISK' '<= 40 HIGH RISK' Performed By: #### 2 [id number] #### [facility] [address] [place] [address] Cholesterol in LDL [Mass/Vol] 169 mg/dL High <=129 [facility] Comment on above: Performed By: #### 2 095179 #### [facility] [address] [place] [address] Cholesterol in VLDL [Mass/Vol] 42 mg/dL High 7-40 [facility] Comment on above: Performed By: #### 2 [id number] #### [facility] [address] [place] [address] Triglyceride [Mass/Vol] 209 mg/dL High <=149 [facility] Comment on above: Performed By: #### 2 [id number] #### [facility] [address] [place] [address] U Microalbon 06-26-2024 Albumin DL <= 20 mg/L (U) [Mass/Vol] 7.3 mg/dL High 0.0-1.9 [facility] Comment on above: Performed By: #### 1 [id number] #### [facility] [address] [place] [address] eGFRon 06-26-2024 eGFR 67 mL/min/1.73 m2 Normal >=59 [facility] Comment on above: Performed By: #### 1 [id number] #### [facility] [address] [place] [address] Population Healthon 06-24-19 [facility] Case Information Case Priority: None Programs: -- Referral Source: Mva Operator Referral Reason: Disease management Case Type: Chronic Care Management Risk Score: -- Case Status: Active (January 07, 2024) Date Assigned: December 27, 2023 Assigned By: Rodrigo Khanna Date Enrolled: January 07, 2024 Assigned Primary Personnel: Rodrigo Khanna Assigned Secondary Personnel: -- Case Physician: Melissa Erazo MD Ongoing Afib Atrial fibrillation, rapid Body mass [...] Assessments 01/07/24 12:27:00 Result Name Value Comment [facility] Program Enrollment Verbally agreed to receive [facility] services CCM Written Consent Written consent in progress CCM Verbal Consent By Self 01/07/24 11:00:00 Result Name Value Comment HIPPA Verified Type of Contact Telephone Information Given by Self CM Preferred Spoken Language Emirati CM Preferred Written Language Emirati Preferred Communication Mode Verbal Ability to Read/Write Able to read, Able to write Preferred Salutation MrsSantos Compliance Administrator Called No Preferred Method of Contact Cell Cell Preferred Mailing Address [address] [place] [phone] Best Time to Visit or Contact 7-10 am Best Day to Visit or Contact No preference Appointment Reminders Other secured messaging Preferred Way to Send PHI Other secured messaging Able to Read Emirati Able to read Emirati Learning Style Pref Patient Demonstration Teaching Method [...] community Special Services and Resources Counseling Primary Chha of Home Medication Self Medication Adherence Method Does not use any method Current DME at Home Yes has several items in home: lift chair, walker, cane, shower chair, motor scooter Currently Receiving Skilled Services No Skilled Service Needs Anticipated No B (more content not included)... Normal [facility] 04-17-20 [facility] Case Information Case Priority: None Programs: -- Referral Source: Mva Operator Referral Reason: Disease management Case Type: Chronic [...] Assessments 01/07/24 12:27:00 Result Name Value Comment [facility] Program Enrollment Verbally agreed to receive [facility] services CCM Written Consent Written consent in progress CCM Verbal Consent By Self 01/07/24 11:00:00 Result Name Value Comment HIPPA Verified Type of Contact Telephone Information Given by Self CM Preferred Spoken Language Emirati CM Preferred Written Language Emirati Preferred Communication Mode Verbal Ability to Read/Write Able to read, Able to write Preferred Salutation MrsSantos Compliance Administrator Called No Preferred Method of Contact Cell Cell Preferred Mailing Address [address] [place] [phone] Best Time to Visit or Contact 7-10 am Best Day to Visit or Contact No preference Appointment Reminders Other secured messaging Preferred Way to Send PHI Other secured messaging Able to Read Emirati Able to read Emirati Learning Style Pref Patient Demonstration Teaching Method [...] community Special Services and Resources Counseling Primary Chha of Home Medication Self Medication Adherence Method Does not use any method Current DME at Home Yes has several items in home: lift chair, walker, cane, shower chair, motor scooter Currently Receiving Skilled Services No Skilled Service Needs Anticipated No Barriers to Care None Home Barriers None (more content not included)... Normal [facility] Office Visiton 04-15-2024 Follow-up visit [id number] Jovana Xie 1970 F Date Provider Department Center 04/15/2024 ADA SOTELO TENZIN Arboleda Family History Problem Relation Age of Onset Coronary artery disease Mother Other Mother Family Status - Relation Status Age at Mother Level of Service:220[address] [place] OFFICE/OUTPATIENT NEW MODERATE MDM 45 MINUTES Normal [facility] Family Medicine Office/Clini c Noteon 03-27-2024 [...] she states was recently adjusted by her bench precision assembler to reduce medication load. Her history includes [...] Colon kiki (more content not included)... Normal [facility] Comment on above: Result Comment: Elec tronically Signed By: Castro AIKEN, Melissa Mary\.br\Date and Time Signed: 03/27/24 13:25 EDT Cult,Genitalon 03-10-2024 Cult,Genital Specimen Description .VAGINA Special Requests Site: Genital Culture NORMAL URO-GENITAL SAMMIE NEGATIVE FOR NEISSERIA GONORRHOEAE Report Status FINAL 03/10/2024 [facility] Comment on above: Performed By: #### G EC #### [employer] [address] [place] [address] Range Management Specialist: Caio James MD [facility] [address] [place] [address] Range Management Specialist: Eulalia Montelongo MD Cytology Reporton 03-07-2024 Cytology report Cyto stain.thin prep Doc (Cvx/Vag) (NOTE) Path Number: [id number] DIAGNOSIS Imaged ThinPrep Pap - Vaginal (1 monolayer slide): Specimen Adequacy: Satisfactory for evaluation. Descriptive Diagnosis: Negative for intraepithelial lesion or malignancy. Cytotech Screener: EY Electronically Signed Out Usman Culp CT(ASCP) ey/03/20/2024 Source of Specimen: A: Imaged ThinPrep Pap - Vaginal (1 monolayer slide) HPV Reflex?............ ..........HPV if Abnormal Clinical History Processing Lab: [place] [id number] Interpretation performed at [place] [id number] This Pap Test has been evaluated with [...] GYNECOLOGIC CYTOLOGY REPORT Patient Name: JOVANA XIE [facility] Rec: [id number] [facility] CONSULTING PATHOLOGISTS [facility] ANATOMIC PATHOLOGY [address] [place], [place] [id number] [facility] 03-05-20 [facility] Case Information Case Priority: None Programs: -- Referral Source: Mva Operator Referral Reason: Disease management Case Type: Chronic Care Management Risk Score: -- Case Status: Active (January 07, 2024) Date Assigned: December 27, 2023 Assigned By: Rodrigo Khanna Date Enrolled: January 07, 2024 Assigned Primary Personnel: Rodrigo Khanna Assigned Secondary Personnel: -- Case Physician: Melissa Erazo MD Ongoing Afib Atrial fibrillation, rapid Body mass [...] CCM Program Enrollment Verbally agreed to receive CCM services CCM Written Consent Written consent in progress CCM Verbal Consent By Self 01/07/24 11:00:00 Result Name Value Comment HIPPA Verified Type of Contact Telephone Information Given by Self CM Preferred Spoken Language Emirati CM Preferred Written Language Emirati Preferred Communication Mode Verbal Ability to Read/Write Able to read, Able to write Preferred Salutation MrsSantos Compliance Administrator Called No Preferred Method of Contact Cell Cell Preferred Mailing Address [address] [place] [phone] Best Time to Visit or Contact 7-10 am Best Day to Visit or Contact No preference Appointment Reminders Other secured messaging Preferred Way to Send PHI Other secured messaging Able to Read Emirati Able to read Emirati Learning Style Pref Patient Demonstration Teaching Method [...] community Special Services and Resources Counseling Primary Chha of Home Medication Self Medication Adherence Method Does not use any method Current DME at Home Yes has several items in home: lift chair, walker, cane, shower chair, motor scooter Currently Receiving Skilled Ser (more content not included)... Normal [facility] Family Medicine Office/Clini c Noteon 02-19-2024 Family [...] malignant neoplasm of female breast: Mother. Normal [facility] Comment on above: Result Comment: Elec tronically Signed By: Castro AIKEN, Melissa Peterson.br\Date and Time Signed: 02/19/24 14:39 EDT Population Health 02-15-20 Population [facility] Population Health Case Information Case Priority: None Programs: -- Referral Source: Mva Operator Referral Reason: Disease management Case Type: Chronic Care Management Risk Score: -- Case Status: Active (January 07, 2024) Date Assigned: December 27, 2023 Assigned By: Rodrigo Khanna Date Enrolled: January 07, 2024 Assigned Primary Personnel: Rodrigo Khanna Assigned Secondary Personnel: -- Case Physician: Melissa Erazo MD Ongoing Afib Body mass index (BMI) of [...] CCM Program Enrollment Verbally agreed to receive [facility] services CCM Written Consent Written consent in progress CCM Verbal Consent By Self 01/07/24 11:00:00 Result Name Value Comment HIPPA Verified Type of Contact Telephone Information Given by Self CM Preferred Spoken Language Emirati CM Preferred Written Language Emirati Preferred Communication Mode Verbal Ability to Read/Write Able to read, Able to write Preferred Salutation Compliance Administrator Called No Preferred Method of Contact Cell Cell Preferred Mailing Address [address] [place] [address] [phone] Best Time to Visit or Contact 7-10 am Best Day to Visit or Contact No preference Appointment Reminders Other secured messaging Preferred Way to Send PHI Other secured messaging Able to Read Emirati Able to read Emirati Learning Style Pref Patient Demonstration Teaching Method [...] community Special Services and Resources Counseling Primary Chha of Home Medication Self Medication Adherence Method Does not use any method Current DME at Home Yes has several items in home: lift chair, walker, cane, shower chair, motor scooter Currently Receiving Skilled Services No Skilled Service Needs Anticipate (more content not included)... Normal [facility] 36on 01-24-2024 36 Please let patient know I discussed with pharmacy about her meds and concern for weight gain. Carvedilol does have the potential to cause weight but it is a low risk. We could try her on a different medication to see if this helps. Would recommend switching to nebivolol 10mg daily. This may also help her shortness of breath. Thanks! Normal [facility] Telephoneon 01-24-2024 Telephone [id number] Jovana Xie 1970 F Date Provider Department Center 01/24/[address] Family History Problem Relation Age of Onset Coronary artery disease Mother Other Mother Family Status - Relation Status Age at Mother [facility] Office Visiton 01-16-2024 Follow-up visit [id number] Jovana Xie 1970 Date Provider Department Center 01/16/2024 GRISEL MELÉNDEZ TENZIN [facility] Family History Problem Relation Age of Onset Coronary artery disease Mother Other Mother Family Status - Relation Status Age at Mother Level of Service:19365 [place] OFFICE/OUTPATIENT ESTABLISHED MOD MDM 30 MIN Reason for Visit and Comments: Atrial Fibrillation [80] Cardiac Stress Test [489] ECHO [Other] [facility] 36on 01-08-2024 36 Regarding stress test result from 12/26/2023: FLY Melgar MA Stress test did not show any ischemia Did note some premature atrial beat and tachycardia No acute concerns. Patient informed. She has follow up 01/16/2024. [facility] Population Health 01-07-20 [facility] Case Information Case Priority: None Programs: -- Referral Source: Mva Operator Referral Reason: Disease management Case Type: Chronic [...] CCM Program Enrollment Verbally agreed to receive [facility] services CCM Written Consent Written consent in progress CCM Verbal Consent By Self 01/07/24 11:00:00 Result Name Value Comment HIPPA Verified Type of Contact Telephone Information Given by Self CM Preferred Spoken Language Emirati CM Preferred Written Language Emirati Preferred Communication Mode Verbal Ability to Read/Write Able to read, Able to write Preferred Salutation MrsSantos Compliance Administrator Called No Preferred Method of Contact Cell Cell Preferred Mailing Address [address] [place] [address] [phone] Best Time to Visit or Contact 7-10 am Best Day to Visit or Contact No preference Appointment Reminders Other secured messaging Preferred Way to Send PHI Other secured messaging Able to Read Emirati Able to read Emirati Learning Style Pref Patient Demonstration Teaching Method [...] community Special Services and Resources Counseling Primary Chha of Home Medication Self Medication Adherence Method Does not use any method Current DME at Home Yes has several items in home: lift chair, walker, cane, shower chair, motor scooter Currently Receiving Skilled Services No Skilled Service Needs Anticipated No Barriers to Care N (more content not included)... Normal [facility] Population Health Population Health Problems Ongoing Afib [...] - Comments: - - Intervention Frequency Status Dental Officer Learn About Home Safety to Prevent Falls or Injury - - Not done - - Review educational material - - Not done - - Goal: Reduce and/or prevent episodes of breakthrough afb and avoid complications Start Date: 2023 Target: - - Status: Not met Barriers: - - Comments: - - Intervention Frequency Status Dental Officer Review educational materials - - Not done [...] - Comments: - - Intervention Frequency Status Dental Officer Review educational material - - Not done - - take medications as prescribed - - Not done - - Complete daily foot checks and report any abnormal findings to provider - - Not done - - Consult with lathe machinist - - Not done - - Try to increase daily activity levels when back pain allows - - Not done - - Goal: Maintain therapeutic BP and prevent complications Start Date: 2023 Target: - - Status: Not met Barriers: - - Comments: - - Intervention Frequency Status Dental Officer Review educational material - - Not done [...] - Comments: - - Intervention Frequency Status Dental Officer complete daily stretching exercises - - Not [...] - Comments: - - Intervention Frequency Status Dental Officer Consult with lathe machinist - - Not done - - eat a well balanced diet rich in protein and avoid foods high in saturated fat - - Not done - - increase low impact exercise as tolerated - - Not done - - Normal [facility] Family Medicine Office/Clini c Noteon 12-27-2023 Family [...] part is December 31 Has appt with Professor Of Fine Art- December 13 History of Present Illness - [...] WEEKLY, # 9 mL, Refills(s) 3, Pharmacy: [facility]/pharmacy #[id number], 161.5, cm, 12/27/23 14:02:00 EDT, Height/Length [...] Primary malignant neoplasm of female breast: Mother. [facility] Comment on above: Result Comment: Elec tronically Signed By: Castro AIKEN, Melissa Mary\.br\Date and Time Signed: 12/27/23 14:23 EDT Patient Letter [facility] 2023 Patient Letter [facility] Patient Letter [facility] December 24, 2023 JOVANA XIE [address] [place] [id number] : 1970 Our office has been trying to reach you, when you receive this letter please give [place] [address] [facility] 37on 12-14-2023 37 Increase Carvedilol to 25 mg twice a day Call office for any concerns- increased fatigue, shortness of breath, lightheadedness/diz ziness or any concerns Orders for sleep study, stress test and echcocardiogram Normal [facility] Office Visiton 12-14-2023 Follow-up visit [id number] Jovana Xie 1970 F Date Provider Department Center 12/14/2023 MEGAN GUO [facility] Family History Problem Relation Age of Onset Coronary artery disease Mother Other Mother Family Status - Relation Status Age at Mother Level of Service:36437 NH OFFICE/OUTPATIENT ESTABLISHED MOD MDM 30 MIN Normal [facility] Family Medicine Office/Clini c Noteon 12-13-2023 [...] CDC-Falls Prevention and home safety screening reviewed. [place] Advance Directives reviewed. Patient provided with education [...] follow up visits. Patient follows up with Professor Of Fine Art, last visit notes available in chart and [...] DM medica (more content not included)... Normal [facility] Comment on above: Result Comment: Elec tronically [...] Follow-Up Appointments 2023 2:00 PM EDT With: Castro AIKEN, Melissa Mary Where: [facility] Normal [address] [place] [address]- \.br\ Medications\.br\ What How Much When Instructions\.br\ [...] \.br\ Some fast-acting carbs are:\.br\ ? \.br [facility] Consultation Noteon 11-28-19 24 Consultation Note [id number] 1C#1.00TIFF Normal [facility] Ambulatory Visit Summaryon 0 11-27-2023 Ambulatory Visit [...] Follow-Up Appointments Sunday 11:00 AM EDT Where: [facility] Family Medicine Lizz Normal [facility] Family Medicine Office/Clini c Noteon 11-27-2023 Family Medicine Office/Clinic Note HPI Staff Jovana is a 53 year old female presenting for one month follow up htn Patient is here for follow up on hypertension. How often are you checking your blood pressure? Daily What are your average readings? feels it's good Yearly BMP: 09/25/23 questions/concerns; says the kwabena slater is driving her nuts, has appt [...] to the ER - Concerns discussed with [facility] that its when she coughs that [...] malignant neoplasm of female breast: Mother. Normal [facility] Comment on above: Result Comment: Elec tronically Signed By: Castro AIKEN, Melissa Mary\.br\Date and Time Signed: 11/27/23 [...] oz glass (more content not included)... Normal [facility] RAD - CT Reporton 11-15-2023 RAD - CT Report [id number] F#1.00TIFF Normal [facility] Ambulatory Visit Summaryon 0 11-14-2023 Ambulatory Visit Summary JOVANA XIE :1970 Visit Date:11/14/2023 Ambulatory Visit Instructions Your Diagnosis Chronic GERD Constipation Colon polyp S/P hysterectomy S/P cholecystectomy Obesity due to excess calories Hiatal hernia Your Care Team Attending Physician - Steffanie AIKEN, Navdeep Rodríguez Primary Care Physician - Castro AIKEN, Melissa Mary This Is Your Medications List Contact prescribing physician if questions or concerns apixaban (Eliquis 5 mg oral tablet) carvedilol (Coreg 12.5 mg Tab) losartan (losartan 100 mg Tab) metformin (metformin 500 mg Tab) omeprazole (omeprazole 20 mg iAdan-) rimegepant (Nurtec ODT 75 mg oral tablet, [...] AM EDT With: Melissa Erazo MD Where: [facility] Family Medicine [place] Normal [facility] Gastroenterology Office/Clin ic Noteon 11-14-2023 Gastroenterology Office/Clinic [...] 50 mg (more content not included)... Normal [facility] Comment on above: Result Comment: Elec tronically Signed By: Steffanie AIKEN, Navdeep Rodríguez\.br\Date and Time Signed: 11/14/23 12:56 EDT Consultation Noteon 11-01-19 Consultation Note [id number] 8#1.00TIFF Normal [facility] Family Medicine Office/Clini c Noteon 10-30-2023 Family [...] and down Yearly BMP: 09/25/23 questions/concerns: saw bench precision assembler and wearing a heart monitor. she was called yesterday by bench precision assembler [facility] and he put her on a [...] atrial fibrillation) - As above - Please slat pickler the elquis. 4. Colon polyp (K63.5: Polyp of colon) - Per Patient. - Following with GI. Orders: metoprolol, 25 mg = 1 tab(s), Oral, Daily, # 90 tab(s), Refills(s) 0, Pharmacy: [facility]/pharmacy #[id number], 162, cm, 10/30/23 9:51:00 EDT, Height/Length [...] Primary malignant neoplasm of female breast: Mother. [facility] Comment on above: Result Comment: Elec tronically Signed By: Castro AIKEN, Melissa Peterson.br\Date and Time Signed: 10/30/23 10:17 EDT IntraOperative Documentson 0 10-26-2023 IntraOperative Documents [id number]#1.00TIFF [facility] Postoperative Documentson Postoperative Documents [id number]#1.00TIFF [facility] Consenton 10-23-2023 Consent [id number] 67#1.00TIFF [facility] Discharge Instructionson Discharge Instructions [id number] 80#1.00TIFF [facility] Main OR Intraoperative Recor don 10-23-2023 Main OR Intraoperative Record IntraOp Document Type FT Summary Primary Physician: Steffanie AIKEN, Navdeep Rodríguez Finalized Date/Time: 10/23/23 11:51:00 Pt. Name: JOVANA XIE/Sex: 1970 Female Med Rec #: [id number] Physician: Navdeep Valiente MD Financial #: [id number] Pt. Type: O Room/Bed: / Admit/Disch: 10/22/23 [...] Attendee Kylee CEE, Pa Oliveira, Camille Clemons DRUM PULLER, Radha Abebe Role Performed Anesthesiologist Scrub - Primary Staff - Other City Recorder Time In 10/22/23 10:23:00 10/22/23 10:23:00 10/22/23 10:23:00 Time Out 10/22/23 10:51:00 10/22/23 10:51:00 10/22/23 10:51:00 Procedure EGD AND COLONOSCOPY(.) EGD AND COLONOSCOPY(.) EGD AND COLONOSCOPY(.) Comments supervising help in room Last Modified By: Kannan RN, Maki Brunner RN, Maki Liu RN 10/22/23 10:49:13 10/22/23 10:49:13 10/22/23 10:49:13 Entry 4 Entry 5 Case Attendee Steffanie AIKEN, Maki Campos RN Role Performed Surgeon - Primary Custom Shoe Designer And Maker - Primary Time In 10/22/23 10:23:00 10/22/23 10:23:00 Time Out 10/22/23 10:51:00 10/22/23 10:51:00 Procedure EGD AND COLONOSCOPY(.) EGD AND COLONOSCOPY(.) Comments Last Modified By: Kannan Maki SWAIN RN, Angela 10/22/23 10:49:13 10/22/23 10:49:13 Perioperative [...] and tissue Entry 1 Skin Integrity Intact, [place], Warm, and Skin Abnormality No Dry Outcomes Met? Yes Last Modified By: Maki Brunner RN 10/22/23 10:29:47 Post-Care Text: The patient is free from signs and symptoms of injury caused by extraneous objects Patient Positioning FT Pre-Care Text: Identifies physical alterations that require additional precautions for procedure-specific (more content not included)... [facility] Consent for Treatmenton 10-03 Consent for Treatment [id number] 5A#1.00TIFF [facility] Discharge Instructionson Discharge Instructions JOVANA XIE [...] Appointments Sunday. 2023 9:45 AM EDT With: Castro AIKEN, Melissa Mary [facility] Comment on above: Result Comment: Elec tronically Signed By: Daniel SWAIN, Lorri\.br\Date and Time Signed: 10/22/23 11:00 EDT NISHDon 10-22-2023 Esophagogastroduod enoscopy Patient: JOVANA XIE Age: [...] WEEKLY, # 9 mL, Refills(s) 3, Pharmacy: [id number], 162, cm, 09/25/23 13:12:00 EDT, Height/Length Dosing, 121.7, kg, 09/25/23 13:12:00 EDT, Weight Dosing hydrochlorothiazide 25 mg Tab: 25 mg = 1 tab(s), Oral, Daily, # 90 tab(s), Refills(s) 0, Pharmacy: [facility], 162, cm, 09/25/23 13:12:00 EDT, Height/Length Dosing, 121.7, kg, 09/25/23 13:12:00 EDT, Weight Dosing losartan 100 mg Tab: 100 mg = 1 tab(s), Oral, Daily, # 90 tab(s), Refills(s) 0, Pharmacy: [facility], 162, cm, 09/25/23 13:12:00 EDT, Height/Length Dosing, 121.7, kg, 09/25/23 13:12:00 EDT, Weight Dosing metformin 500 mg Tab: See Instructions, TAKE 1 TABLET BY MOUTH EVERY DAY, # 90 tab(s), Refills(s) 3, Pharmacy: [facility] [id number], 162, cm, 09/25/22 11:02:00 EDT, Height/Length Dosing, [...] duodenum. Images Procedure images: Rec1_hd_video_2023_ _[id number]. jpg Rec1_hd_video_2023_ _[id number]. jpg Rec1_hd_video_2023_ _[id number]. jpg Rec1_hd_video_2023_ _[id number]. jpg Rec1_hd_video_2023_ _[id number]. jpg Rec1_hd_video_2023_ _[id number]. jpg . Post-Procedure Complications: none. Estimated blood loss: minimal. Specimens: sent to pathology. Devices/ implants: none left in place. Impression and Plan gastropathy Nonobstructing Schatzki's ring Hiatal hernia Recommendations: -Resume previous diet -Resume home medications -Avoid NSAIDs -Await pathology results, follow in GI clinic in 1-2 after discharge Normal [facility] Comment on above: Other Comment: Latha sim Attachment - attachment storage system not supported [id number] Can be viewed in source systemMissing Attachment - attachment storage system not supported [id number] Can be viewed in source systemMissing Attachment - attachment storage system not supported [id number] Can be viewed in source systemMissing Attachment - attachment storage system not supported [id number] Can be viewed in source systemMissing Attachment - attachment storage system not supported [id number] Can be viewed in source systemMissing Attachment - attachment storage system not supported [id number] Can be viewed in source system Colonoscopy Procedure Report Patient: JOVANA XIE Age: 53 years Sex: Female : 1970 Associated Diagnoses: None Author: MouchNavdeep villavicencio MD Pre-Procedure Procedure Date 10/22/2023 10:52:00 . Procedure Type: Colonoscopy with removal of tumor(s), polyp(s), or other lesion(s) by cold snare technique. Procedure provider Performed by Navdeep Valiente MD. Current history and physical Documented on chart. Cardiac catheter ([id number]) in 2005 at 36 Years. MANDI BSO - Total abdominal hysterectomy and bilateral salpingo-oophorecto my ([id number]) on 01/15/2004 at 33 Years. Tonsillectomy and adenoidectomy ([id number]). Arthroscopy ([id number]). Comments: 09/01/2022 10:00 EDT Daija Beyer LPN left and right, separate times History of lumbar spine surgery ([id number]). Comments: 09/01/2022 10:01 Daija Mendosa LPN L4-L5 disc December 2015. Past Medical History No active or resolved past medical history items have been selected or recorded.. Family History Patient was adopted. Diabetes mellitus type 1 Father Primary malignant neoplasm of female breast Mother . Procedure History Cardiac catheter ([id number]) in 2005 at 36 Years. MANDI BSO - Total abdominal hysterectomy and bilateral salpingo-oophorecto my ([id number]) on 01/15/2004 at 33 Years. Tonsillectomy and adenoidectomy ([id number]). Arthroscopy ([id number]). Comments: 09/01/2022 10:00 EDT Daija Beyer LPN left and right, separate times History of lumbar spine surgery ([id number]). Comments: 09/01/2022 10:01 Daija Mendosa LPN L4-L5 [...] WEEKLY, # 9 mL, Refills(s) 3, Pharmacy: [facility], 162, cm, 09/25/23 13:12:00 EDT, Height/Length Dosing, 121.7, kg, 09/25/23 13:12:00 EDT, Weight Dosing hydrochlorothiazide 25 mg Tab: 25 mg = 1 tab(s), Oral, Daily, # 90 tab(s), Refills(s) 0, Pharmacy: [facility], 162, cm, 09/25/23 13:12:00 EDT, Height/Length Dosing, 121.7, kg, 09/25/23 13:12:00 EDT, Weight Dosing losartan 100 mg Tab: 100 mg = 1 tab(s), Oral, Daily, # 90 tab(s), Refills(s) 0, Pharmacy: [facility], 162, cm, 09/25/23 13:12:00 EDT, Height/Length Dosing, 121.7, kg, 09/25/23 13:12:00 EDT, Weight Dosing metformin 500 mg Tab: See Instructions, TAKE 1 TABLET BY MOUTH EVERY DAY, # 90 tab(s), Refills(s) 3, Pharmacy: [facility] [id number], 162, cm, 09/25/22 11:02:00 EDT, Height/Length Dosing, 138.5, kg, 09/25/22 11:02:00 EDT, Weight Dosing Documented Medications Documented [facility] ODT 75 mg oral tablet, disintegratin mg [...] cold snare completely Images Procedure images: Rec1_hd_video_2023_ _[id number]. jpg Rec1_hd_video_2023_ _[id number]. jpg Rec1_hd_video_2023_ _[id number]. jpg Rec1_hd_video_2023_ _[id number]. jpg Rec1_hd_video_2023_ _[id number]. jpg Rec1_hd_video_2023_ _[id number]. jpg Rec1_hd_video_2023_ _[id number]. jpg Rec1_hd_video_20 (more content not included)... [facility] Comment on above: Other Comment: Latha sim Attachment - attachment storage system not supported [id number] Can be viewed in source systemMissing Attachment - attachment storage system not supported [id number] Can be viewed in source systemMissing Attachment - attachment storage system not supported [id number] Can be viewed in source systemMissing Attachment - attachment storage system not supported [id number] Can be viewed in source systemMissing Attachment - attachment storage system not supported [id number] Can be viewed in source systemMissing Attachment - attachment storage system not supported [id number] Can be viewed in source systemMissing Attachment - attachment storage system not supported [id number] Can be viewed in source systemMissing Attachment - attachment storage system not supported [id number] Can be viewed in source system Esophagogastroduod enoscopy Patient: JOVANA XIE Age: 53 years Sex: Female : 1970 Associated Diagnoses: None Author: Navdeep Valiente MD Pre-Procedure Procedure Date 10/22/2023 10:52:00 . Procedure Type: Colonoscopy with removal of tumor(s), polyp(s), or other lesion(s) by cold snare technique. Procedure provider Performed by Navdeep Valiente MD. Current history and physical Documented on chart. Cardiac catheter ([id number]) in 2005 at 36 Years. MANDI BSO - Total abdominal hysterectomy and bilateral salpingo-oophorecto my ([id number]) on 01/15/2004 at 33 Years. Tonsillectomy and adenoidectomy ([id number]). Arthroscopy ([id number]). Comments: 09/01/2022 10:00 Daija Mendosa LPN left and right, separate times History of lumbar spine surgery ([id number]). Comments: 09/01/2022 10:01 Daija Mendosa LPN L4-L5 disc December 2015. Past Medical History No active or resolved past medical history items have been selected or recorded.. Family History Patient was adopted. Diabetes mellitus type 1 Father Primary malignant neoplasm of female breast Mother . Procedure History Cardiac catheter ([id number]) in 2005 at 36 Years. MANDI BSO - Total abdominal hysterectomy and bilateral salpingo-oophorecto my ([id number]) on 01/15/2004 at 33 Years. Tonsillectomy and adenoidectomy ([id number]). Arthroscopy ([id number]). Comments: 09/01/2022 10:00 Daija Mendosa LPN left and right, separate times History of lumbar spine surgery ([id number]). Comments: 09/01/2022 10:01 EDT - Zara MILLERDaija [...] WEEKLY, # 9 mL, Refills(s) 3, Pharmacy: [facility], 162, cm, 09/25/23 13:12:00 EDT, Height/Length Dosing, 121.7, kg, 09/25/23 13:12:00 EDT, Weight Dosing hydrochlorothiazide 25 mg Tab: 25 mg = 1 tab(s), Oral, Daily, # 90 tab(s), Refills(s) 0, Pharmacy: [facility], 162, cm, 09/25/23 13:12:00 EDT, Height/Length Dosing, 121.7, kg, 09/25/23 13:12:00 EDT, Weight Dosing losartan 100 mg Tab: 100 mg = 1 tab(s), Oral, Daily, # 90 tab(s), Refills(s) 0, [facility] [facility], 162, cm, 09/25/23 13:12:00 EDT, Height/Length Dosing, 121.7, kg, 09/25/23 13:12:00 EDT, Weight Dosing metformin 500 mg Tab: See Instructions, TAKE 1 TABLET BY MOUTH EVERY DAY, # 90 tab(s), Refills(s) 3, Pharmacy: [facility] [id number], 162, cm, 09/25/22 11:02:00 EDT, Height/Length Dosing, [...] jpg Rec_hd_video__[id number]. jpg Rec_hd_video__[id number]. jpg Rec_hd_video__[id number]. jpg Rec_hd_video__[id number]. jpg Rec1_hd_video_20 (more content not included)... Normal [facility] Comment on above: Other Comment: Latha sim Attachment - attachment storage system not supported [id number] Can be viewed in source systemMissing Attachment - attachment storage system not supported [id number] Can be viewed in source systemMissing Attachment - attachment storage system not supported [id number] Can be viewed in source systemMissing Attachment - attachment storage system not supported [id number] Can be viewed in source systemMissing Attachment - attachment storage system not supported [id number] Can be viewed in source systemMissing Attachment - attachment storage system not supported [id number] Can be viewed in source systemMissing Attachment - attachment storage system not supported [id number] Can be viewed in source systemMissing Attachment - attachment storage system not supported [id number] Can be viewed in source system Main OR PACU I Recordon 05- Main OR PACU I Record PACU Phase I Document Type FT Summary Primary Physician: Navdeep Valiente MD Finalized Date/Time: 10/22/23 12:06:11 Pt. Name: JOVANA XIE/Sex: 1970 Female Med Rec #: [id number] Physician: Navdeep Valiente MD Financial #: [id number] Pt. Type: O Room/Bed: / Admit/Disch: 10/22/23 [...] Signed By: Lorri Sanchez RN 10/22/23 12:06 [facility] Main OR Preoperative Recordo n 10-22-2023 Main OR Preoperative Record Holding Area Document Type FT Summary Primary Physician: Navdeep Valiente MD Finalized Date/Time: 10/22/23 09:34:35 Pt. Name: JOVANA XIE/Sex: 1970 Female Med Rec #: [id number] Physician: Navdeep Valiente MD Financial #: [id number] Pt. Type: O Room/Bed: / Admit/Disch: 10/22/23 [...] By: Fely Leon RN 10/22/23 09:34 Normal [facility] Monitor Recordon 10-22-2023 Monitor Record [id number]..[id number] Normal [facility] Monitor Record [id number]..[id number] Normal [facility] Patient Education - [employer]on 0 10-22-2023 Patient [...] unsweetened, w/added ascorbic acid 1 cup 0.5 [place] 1 cup 0.7 Vegetables Cooked Green beans 1 cup 4.0 Carrots 1/2 cup sliced 2.3 Peas 1 cup 8.8 Potato (baked, with skin) 1 medium potato 3.8 Raw [place] (with peel) 1 cucumber 1.5 Lettuce 1 [...] 8.7 Peanuts 1/2 cup 7.9 Chart from [facility] 2013. SEEK IMMEDIATE MEDICAL CARE IF: You [...] Nutrient Database for Standard Reference. Available at http://www.Canines.usda .gov/fnic/foodcomp/ search/. Information adapted from: [facility]? Patient Information ?2009 [employer]. [facility] 2012 http://www.[employer] ([place])/contents/diver eyeuliw-pslvnxv-xbi onf-lwj-lpuuir Colonoscopy Care After Surgery Please read the [...] and progress (more content not included)... Normal [facility] Progress Note-Physicianon Progress Note-Physician Patient: JOVANA XIE [...] WEEKLY, # 9 mL, Refills(s) 3, Pharmacy: [facility], 162, cm, 09/25/23 13:12:00 EDT, Height/Length Dosing, 121.7, kg, 09/25/23 13:12:00 EDT, Weight Dosing hydrochlorothiazide 25 mg Tab: 25 mg = 1 tab(s), Oral, Daily, # 90 tab(s), Refills(s) 0, Pharmacy: [facility], 162, cm, 09/25/23 13:12:00 EDT, Height/Length Dosing, 121.7, kg, 09/25/23 13:12:00 EDT, Weight Dosing losartan 100 mg Tab: 100 mg = 1 tab(s), Oral, Daily, # 90 tab(s), Refills(s) 0, Pharmacy: [facility], 162, cm, 09/25/23 13:12:00 EDT, Height/Length Dosing, 121.7, kg, 09/25/23 13:12:00 EDT, Weight Dosing metformin 500 mg Tab: See Instructions, TAKE 1 TABLET BY MOUTH EVERY DAY, # 90 tab(s), Refills(s) 3, Pharmacy: [facility], 162, cm, 09/25/22 11:02:00 EDT, Height/Length Dosing, [...] list: All Problems Asthma / SNOMED CT 578072673 / Confirmed Body mass index (BMI) of 45.0-49.9 in adult / SNOMED CT 6996204110 / Confirmed Chronic GERD / SNOMED CT 119543111 / Confirmed Colon cancer screening / SNOMED CT 844509318 / Confirmed Constipation, outlet dysfunction / SNOMED CT 59655973 / Confirmed Controlled type 2 diabetes mellitus without complication, without long-term current use of insulin / SNOMED CT 377921682 / Confirmed Derangement of knee / SNOMED CT 834195992 / Confirmed Diabetes mellitus type II, controlled / SNOMED CT 837858333 / Confirmed Extrinsic asthma with status asthmaticus / SNOMED CT 7683141880 / Confirmed Headache / SNOMED CT 81297532 / Confirmed Hemorrhoids / SNOMED CT 053303412 / Confirmed HTN (hypertension) / SNOMED CT 1283491731 / Confirmed Metabolic syndrome X / SNOMED CT 768822020 / Confirmed Morbid obesity / SNOMED CT 781775318 / Confirmed Osteoarthritis / SNOMED CT 0572079068 / Confirmed idiopathic Pain in thumb joint with movement of right hand / SNOMED CT 041137315 / Confirmed Pelvic floor dysfunction / SNOMED CT 5212491455 / Confirmed Psoriasis / SNOMED CT 74364468 / Confirmed Raynaud's phenomenon without gangrene / SNOMED CT 399263388 / Confirmed Raynauds phenomenon / SNOMED CT 900669313 / Confirmed isolated, primary S/P cholecystectomy / SNOMED CT 7906681678 / Confirmed S/P hysterectomy / SNOMED CT 296280984 / Confirmed Sciatica / SNOMED CT 53912186 / Confirmed Smoker / SNOMED CT 089147225 / Confirmed Steatosis of liver / SNOMED CT 678675209 / Confirmed 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 Normal [facility] Comment on above: Result Comment: Elec tronically [...] WEEKLY, # 9 mL, Refills(s) 3, Pharmacy: [facility], 162, cm, 09/25/23 13:12:00 EDT, Height/Length Dosing, 121.7, kg, 09/25/23 13:12:00 EDT, Weight Dosing hydrochlorothiazide 25 mg Tab: 25 mg = 1 tab(s), Oral, Daily, # 90 tab(s), Refills(s) 0, Pharmacy: [facility], 162, cm, 09/25/23 13:12:00 EDT, Height/Length Dosing, 121.7, kg, 09/25/23 13:12:00 EDT, Weight Dosing losartan 100 mg Tab: 100 mg = 1 tab(s), Oral, Daily, # 90 tab(s), Refills(s) 0, Pharmacy: [facility], 162, cm, 09/25/23 13:12:00 EDT, Height/Length Dosing, 121.7, kg, 09/25/23 13:12:00 EDT, Weight Dosing metformin 500 mg Tab: See Instructions, TAKE 1 TABLET BY MOUTH EVERY DAY, # 90 tab(s), Refills(s) 3, Pharmacy: [facility], 162, cm, 09/25/22 11:02:00 EDT, Height/Length Dosing, [...] list: All Problems Asthma / SNOMED CT 802907841 / Confirmed Body mass index (BMI) of 45.0-49.9 in adult / SNOMED CT 0371252632 / Confirmed Chronic GERD / SNOMED CT 627554171 / Confirmed Colon cancer screening / SNOMED CT 117758076 / Confirmed Constipation, outlet dysfunction / SNOMED CT 39511679 / Confirmed Controlled type 2 diabetes mellitus without complication, without long-term current use of insulin / SNOMED CT 656014057 / Confirmed Derangement of knee / SNOMED CT 667055791 / Confirmed Diabetes mellitus type II, controlled / SNOMED CT 663967306 / Confirmed Extrinsic asthma with status asthmaticus / SNOMED CT 5518062548 / Confirmed Headache / SNOMED CT 92599482 / Confirmed Hemorrhoids / SNOMED CT 567125372 / Confirmed HTN (hypertension) / SNOMED CT 3150645985 / Confirmed Metabolic syndrome X / SNOMED CT 606720749 / Confirmed Morbid obesity / SNOMED CT 568826274 / Confirmed Osteoarthritis / SNOMED CT 8478674823 / Confirmed idiopathic Pain in thumb joint with movement of right hand / SNOMED CT 754680530 / Confirmed Pelvic floor dysfunction / SNOMED CT 6873065914 / Confirmed Psoriasis / SNOMED CT 75447650 / Confirmed Raynaud's phenomenon without gangrene / SNOMED CT 309908085 / Confirmed Raynauds phenomenon / SNOMED CT 051732555 / Confirmed isolated, primary S/P cholecystectomy / SNOMED CT 2659383148 / Confirmed S/P hysterectomy / SNOMED CT 582404523 / Confirmed Sciatica / SNOMED CT 46031913 / Confirmed Smoker / SNOMED CT 907129257 / Confirmed Steatosis of liver / SNOMED CT 361709740 / Confirmed 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 Normal [facility] Comment on above: Result Comment: Elec tronically Signed By: Campbell Santiago DO.br\Date and Time Signed: 10/22/23 09:59 EDT Consent for Procedure/Surger yon 10-19-2023 Consent for Procedure/Surgery [id number]#[id number] Normal [facility] Office Visiton 10-19-2023 Follow-up visit [id number] Jovana Xie A 1970 F Date Provider Department Center 10/19/2023 [id number] [facility] Family History Problem Relation Age of Onset Coronary artery disease Mother Other Mother Family Status - Relation Status Age at Mother Level of Service:65676 [place] OFFICE/OUTPATIENT ESTABLISHED MOD MDM 30 MIN Normal [facility] Ambulatory Visit Summaryon 0 10-18-2023 Ambulatory [...] AM EDT With: Melissa Erazo MD Where: [facility] Family Medicine [place] Normal [facility] Gastroenterology Office/Clin ic Noteon 10-18-2023 Gastroenterology Office/Clinic [...] why taking: Cardiac history? 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 Normal [facility] Comment on above: Result Comment: Elec tronically [...] Erazo MD. This Is Your Medications List hydrochlorothiazide (hydrochlorothiazid [...] Follow-Up Appointments 2023 9:30 AM EDT With: Castro AIKEN, Melissa Mary Where: [facility] Family Medicine [place] Normal [facility] CBC w/ Auto Diffon 4 Basophils/100 WBC (Bld) 0.3 % Normal 0.0-2.0 [facility] Comment on above: Performed By: #### 2 810008, [id number], 5193093, 84110568 #### [facility] Laboratory [address] [place] [address] Basophils/Leukocyt es Auto (Bld) [Pure # fraction] 0.0 E9/L Normal 0.0-0.2 [facility] Comment on above: Performed By: #### 2 482869, 864864246, 5617383, 54094558 #### [facility] Laboratory [address] [place] [address] Eosinophils (Bld) [#/Vol] 0.5 E9/L Normal 0.0-0.5 [facility] Comment on above: Performed By: #### 2 021448, 905956435, 3917631, 02165118 #### [facility] Laboratory [address] [place] [address] Eosinophils/100 WBC (Bld) 4.4 % Normal 0.0-8.0 [facility] Comment on above: Performed By: #### 2 224455, 262920323, 9035962, 50592520 #### [facility] Laboratory [address] [place] [address] Erythrocyte distribution width (RBC) [Ratio] 15.2 % High 10.9-14.2 [facility] Comment on above: Performed By: #### 2 987596, 676028748, 9893334, 67132705 #### [facility] [address] [place] [address] Hematocrit (Bld) [Volume fraction] 38.6 % Normal 34.0-46.0 [facility] Comment on above: Performed By: #### 2 345157, 136015887, 3785610, 95620274 #### [facility] Laboratory [address] [place] [address] Hemoglobin (Bld) [Mass/Vol] 12.7 g/dL Normal 12.0-16.0 [facility] Comment on above: Performed By: #### 2 134120, 629011917, 7678030, 16728725 #### [facility] [address] [place] [address] Lymphocytes (Bld) [#/Vol] 2.5 E9/L Normal 1.0-4.0 [facility] Comment on above: Performed By: #### 2 566527, 893796009, 0144406, 68384148 #### [facility] [address] [place] [address] Lymphocytes/100 WBC (Bld) 23.7 % Normal 14.0-50.0 [facility] Comment on above: Performed By: #### 2 942059, 151984216, 5661662, 22281422 #### [facility] [address] [place] [address] 97347 MCH (RBC) [Entitic mass] 29.0 pg Normal 27.0-34.0 [facility] Comment on above: Performed By: #### 2 434871, 345025189, 4170182, 14136452 #### [facility] [address] [place] [address] MCHC (RBC) [Mass/Vol] 33.0 g/dL Normal 31.4-36.0 [facility] Comment on above: Performed By: #### 2 933259, 015244133, 1619092, 94859727 #### [facility] [address] [place] [address] 70680 MCV (RBC) [Entitic vol] 88.1 fL Normal 80.0-100.0 [facility] Comment on above: Performed By: #### 2 743909, 388047949, 8993844, 87319332 #### [facility] [address] [place] [address] Monocytes (Bld) [#/Vol] 0.6 E9/L Normal 0.2-1.0 [facility] Comment on above: Performed By: #### 2 955848, 753084695, 2875238, 64690354 #### [facility] [address] [place] [address] 72[address] Neutrophils (Bld) [#/Vol] 7.0 E9/L Normal 2.0-7.5 [facility] Comment on above: Performed By: #### 2 428603, 478125190, 3219795, 28627064 #### [facility] [address] [place] [address] 58818 Neutrophils/100 WBC (Bld) 65.8 % Normal 36.0-75.0 [facility] Comment on above: Performed By: #### 2 228048, 197595388, 3500442, 48375285 #### [facility] [address] [place] [address] Platelet 344.0 E9/L Normal 150.0-500.0 [facility] Comment on above: Performed By: #### 2 692061, 918161988, 1278438, 53992021 #### [facility] [address] [place] [address] 77065 Platelet mean volume (Bld) [Entitic vol] 8.9 fL Normal 6.4-10.8 [facility] Comment on above: Performed By: #### 2 152609, 178656650, 1915753, 19699110 #### [facility] [address] [place] [address] 67[address] RBC (Bld) [#/Vol] 4.4 E12/L Normal 4.3-5.9 [facility] Comment on above: Performed By: #### 2 184635, 605662046, 0678943, 17369571 #### [facility] [address] [place] [address] WBC corrected for nucl RBC Auto (Bld) [#/Vol] 10.6 E9/L Normal 4.0-11.0 [facility] Comment on above: Performed By: #### 2 730841, 157805245, 9609068, 76294351 #### [facility] [address] [place] [address] CHEMISTRYOrdered By: SYSTEM SYSTEM on 09-25-2023 Albumin [...] (Bld) [Mass fraction] 5.2 % Normal <=5.9% [facility] ChemAutoSS CMPon 09-25-2023 Albumin [Mass/Vol] 3.5 g/dL Normal 3.3-5.0 [facility] Comment on above: Performed By: #### 2 677815, 871657768, 8682656, 67687838 ####[facility] [address] [place] [address] Albumin/Globulin (S) [Mass conc ratio] 1.2 Normal 1.1-2.2 [facility] Comment on above: Performed By: #### 2 222170, 960998221, 8818414, 10609090 ####[facility] [address] [place] [address] ALP [Catalytic activity/Vol] 99 Int._Unit/L High 21-98 [facility] Comment on above: Performed By: #### 2 968627, 964261987, 6404027, 40178763 ####[facility] [address] [place] [address] ALT No additional P-5'-P [Catalytic activity/Vol] 30 Int._Unit/L Normal 6-46 [facility] Comment on above: Performed By: #### 2 846206, 145904618, 6287759, 95393922 ####[facility] [address] [place] [address] Anion gap [Moles/Vol] 11 mmol/L Normal 6-16 [facility] Comment on above: Performed By: #### 2 752427, 242065122, 5373531, 24135824 ####[facility] [address] [place] [address] AST [Catalytic activity/Vol] 20 Int._Unit/L Normal 5-43 [facility] Comment on above: Performed By: #### 2 779113, 714048787, 6574228, 90189760 ####[facility] [address] [place] [place] [address] Bilirubin [Mass/Vol] 0.5 mg/dL Normal 0.0-1.1 [facility] Comment on above: Performed By: #### 2 040118, 000990188, 8482845, 37230848 ####[facility] [address] [place] [address] Calcium [Mass/Vol] 9.4 mg/dL Normal 8.9-11.1 [facility] Comment on above: Performed By: #### 2 291499, 633684254, 1294400, 41461184 ####[facility] [address] [address] Chloride [Moles/Vol] 104 mmol/L Normal 101-111 [facility] Comment on above: Performed By: #### 2 809940, 906693886, 4760743, 57244405 ####[facility] [address] [place] [place] [address] CO2 [Moles/Vol] 26 mmol/L Normal 21-31 [facility] Comment on above: Performed By: #### 2 748380, 523753537, 4309100, 70170058 ####[facility] [address] [place] [address] Creatinine [Mass/Vol] 0.8 mg/dL Normal 0.5-1.3 [facility] Comment on above: Performed By: #### 2 832485, 062296352, 6104992, 06848560 ####[facility] [address] [place] [address] Globulin (S) [Mass/Vol] 3.0 g/dL Normal 1.4-4.0 [facility] Comment on above: Performed By: #### 2 842666, 261774922, 8440891, 92884540 ####[facility] [address] [place] [address] Glucose [Mass/Vol] 113 mg/dL Normal 55-199 [facility] Comment on above: Performed By: #### 2 069318, 126338561, 4642567, 22233372 ####[facility] [address] [place] [address] Potassium [Moles/Vol] 4.3 mmol/L Normal 3.5-5.3 [facility] Comment on above: Performed By: #### 2 421508, 045068950, 1545604, 65389527 ####[facility] [address] [place] [address] Protein [Mass/Vol] 6.5 g/dL Normal 6.0-7.8 [facility] Comment on above: Performed By: #### 2 236600, 654667868, 7438980, 36745728 ####[facility] [address] [place] [address] Sodium [Moles/Vol] 137 mmol/L Normal 135-145 [facility] Comment on above: Performed By: #### 2 500387, 932775806, 8207113, 88233810 ####[facility] [address] [place] [address] Urea nitrogen [Mass/Vol] 20 mg/dL Normal 5-21 [facility] Comment on above: Performed By: #### 2 693772, 022528204, 8559638, 76153831 ####[facility] [address] [place] [address] Urea nitrogen/Creatinin e [Mass ratio] 25 No Units High 10-20 [facility] Comment on above: Performed By: #### 2 081278, 268967610, 9516456, 03094590 ####[facility] [address] [place] [address] Family Medicine Office/Clini c Noteon 09-25-2023 Family [...] Daily, # 90 tab(s), Refills(s) 0, Pharmacy: [facility], 162, cm, 09/25/23 13:12:00 EDT, Height/Length Dosing, 121.7, kg, 09/25/23 13:12:00 EDT, Weight Dosing CBC w/ Auto Diff Comprehensive Metabolic Panel [facility] Internal Ambulatory Referral HgbA1c Microalbumin Level Urine 2. Morbid obesity (E66.01: Morbid (severe) obesity due to excess calories) - Diet and exercise advised Ordered: hydrochlorothiazide , 25 mg = 1 tab(s), Oral, Daily, # 90 tab(s), Refills(s) 0, Pharmacy: [facility], 162, cm, 09/25/23 13:12:00 EDT, Height/Length Dosing, 121.7, kg, 09/25/23 13:12:00 EDT, Weight Dosing CBC w/ Auto Diff Comprehensive Metabolic Panel [facility] Internal Ambulatory Referral HgbA1c Microalbumin Level Urine 3. HTN (hypertension) (I10: Essential (primary) hypertension) - Will increase the losartan and add HCTZ. - Follow up in 1 month Ordered: hydrochlorothiazide , 25 mg = 1 tab(s), Oral, Daily, # 90 tab(s), Refills(s) 0, Pharmacy: [facility], 162, cm, 09/25/23 13:12:00 EDT, Height/Length Dosing, 121.7, kg, 09/25/23 13:12:00 EDT, Weight Dosing CBC w/ Auto Diff Comprehensive Metabolic Panel [facility] Internal Ambulatory Referral HgbA1c Microalbumin Level Urine 4. Colon cancer screening (Z12.11: Encounter for screening for malignant neoplasm of colon) - Will send for colonoscopy Ordered: hydrochlorothiazide , 25 mg = 1 tab(s), Oral, Daily, # 90 tab(s), Refills(s) 0, Pharmacy: [facility], 162, cm, 09/25/23 13:12:00 EDT, Height/Length Dosing, 121.7, kg, 09/25/23 13:12:00 EDT, Weight Dosing CBC w/ Auto Diff Comprehensive Metabolic Panel [facility] Internal Ambulatory Referral HgbA1c Microalbumin Level Urine 5. Derangement of knee (M23.90: Unspecified internal derangement of unspecified knee) - Use of cane PRN. - Follow up next month Ordered: hydrochlorothiazide , 25 mg = 1 tab(s), Oral, Daily, # 90 tab(s), Refills(s) 0, Pharmacy: [facility], 162, cm, 09/25/23 13:12:00 EDT, Height/Length Dosing, 121.7, kg, 09/25/23 13:12:00 EDT, Weight Dosing CBC w/ Auto Diff Comprehensive Metabolic Panel [facility] Internal Ambulatory Referral HgbA1c Microalbumin Level Urine 6. Body mass index (BMI) of 45.0-49.9 in adult (Z68.42: Body mass index [BMI] 45.0-49.9, adult) - BMI education discussed. - Diet and exercise advised. Ordered: hydrochlorothiazide , 25 mg = 1 tab(s), Oral, Daily, # 90 tab(s), Refills(s) 0, Pharmacy: [facility], 162, cm, 09/25/23 13:12:00 EDT, Height/Length Dosing, 121.7, kg, 09/25/23 13:12:00 EDT, Weight Dosing Orders: losartan, 100 mg = 1 tab(s), Oral, Daily, # 90 tab(s), Refills(s) 0, Pharmacy: [facility], 162, cm, 09/25/23 13:12:00 EDT, Height/Length Dosing, 121.7, kg, 09/25/23 13:12:00 EDT, Weight Dosing semaglutide, See Instructions, INJECT 1 MG SUBCUANEOUSLY WEEKLY, # 9 mL, Refills(s) 3, Pharmacy: [id number], 162, cm, 09/25/23 13:12:00 [...] with st (more content not included)... Normal [facility] Comment on above: Result Comment: Elec tronically Signed By: Castro AIKEN, Melissa Peterson.br\Date and Time Signed: 09/25/23 [...] Normal 4.0 - 11.0 E9/L Remisol Heme [id number] 09-25-2023 HbA1c (Bld) [Mass fraction] 5.2 % Normal <=5.9 [facility] Comment on above: Performed By: #### 2 [id number], [id number] ####[facility] [id number] [place] [address] Patient Educationon 09-25-19 Patient Education Nutrition BMI [...] numbers. This can be done either in [place] or metric measurements. Note that charts and online BMI calculators are available to help you find your BMI quickly and easily without having to do these calculations yourself. To calculate your BMI in [place] ([place] measurements: 1. Measure your weight in [...] for Disease Control and Prevention: www.cdc.gov ? [place] [employer]: www.heart.org ? National Heart, Lung, and Blood Flushing: www.nhlbi.nih.gov Summary ? Body mass index (BMI) is a number that is calculated from a person's weight and height. ? BMI may help estimate how much of a person's weight is composed of fat. BMI can help identify those who may be at higher risk for certain medical problems. ? BMI can be measured using [place] measurements or metric measurements. ? BMI charts are used to identify whether you are underweight, normal weight, overweight, or obese. This information is not intended to replace advice given to you by your health care provider. Make sure you discuss any questions you have with your health care provider. Document Revised: 02/11/2020 Document Reviewed: 12/19/2019 [employer] Patient Education ? 2022 [employer] Normal [facility] U Microalbon 09-25-2023 Albumin DL <= 20 mg/L (U) [Mass/Vol] 0.7 mg/dL Normal 0.0-1.9 [facility] Comment on above: Performed By: #### 1 [id number] ####[facility] [id number] [place] [address] eGFRon 09-25-2023 eGFR 88 mL/min/1.73 m2 Normal >=59 [facility] Comment on above: Order Comment: Order added by Discern Expert. Performed By: #### 2 [id number] ####[facility] [id number] [place] [address] CT LUNG CANCER SCREENINGon 0 10-27-2022 CT [...] by: ALEM PASCUAL Date: 2022-10-27 09:10 Normal [facility] HEMOGLOBINon 10-27-2022 Hemoglobin (Bld) [Mass/Vol] 14.8 g/dL Normal 12.0-16.0 [facility] Comment on above: Performed By: #### H GB #### [facility] [address] [address] [address] Eron Spencer XR hand BI 3Von 10-11-2022 XR hand BI 3V [facility] [employer] Other XR hand BI 3V [facility] [employer] Other XR hand BI 3V [address] [place] [address] [employer] Other XR hand BI 3V [address] [employer] Other XR hand BI 3V XRay Report [employer] [facility] [employer] Other XR hand BI 3V Signed [employer] Other XR hand BI 3V Patient: Jovana Xie MR#: [id number] Howes [employer] Other XR hand BI 3V 585 [employer] Other XR hand BI 3V : 1970 Acct:[id number] [employer] Other XR hand BI 3V Age/Sex: 52 / F ADM Date: 10/11/22 We[employer] Other XR hand BI 3V Loc: [facility] Room: Type: [facility] [employer] Other XR hand BI 3V Attending Dr: Charu Pham MD [employer] Other XR hand BI 3V Copies to: Charu Pham MD [employer] Other XR hand BI 3V Ordering Provider: Charu Pham MD [employer] Other XR hand BI 3V Date of Service: 10/11/22 We[employer] Other XR hand BI 3V XR/XR hand BI 3V: Right hand pain [employer] Other XR hand BI 3V BILATERAL HANDS - 4 views each [employer] Other XR hand BI 3V COMPARISON: None [employer] Other XR hand BI 3V CLINICAL DATA: Bilateral hand pain, greatest at the right first carpometacarpal joint. Numbness at [employer] Other XR hand BI 3V the left third through fifth fingers. [employer] Other XR hand BI 3V AP, lateral, oblique and supplemental AP views of the thumbs were obtained. There are no acute [employer] Other XR hand BI 3V fractures or dislocation. No disproportionate joint space narrowing or prominent hypertrophy is [employer] Other XR hand BI 3V seen. There are no focal soft tissue abnormalities. [employer] Other XR hand BI 3V XR/XR hand BI 3V [employer] Other XR hand BI 3V IMPRESSION: [employer] Other XR hand BI 3V NO ACUTE BONY FINDINGS. We[employer] Other XR hand BI 3V Impression dictated by: Daina Downs M.D.10/11/2022 2:43 PM [employer] Other XR hand BI 3V Dictation Location: [place] [address] [employer] Other XR hand BI 3V Transcribed By: DEANGELO 10/11/22 1443 [employer] Other XR hand BI 3V Dictated By: Daina Downs MD 10/11/22 1442 [employer] Other XR hand BI 3V Signed By: We[employer] Other XR hand BI 3V 10/11/22 1443 [employer] Other XR cerv spine AP/LAT/FLX/EXT on 06-21-2022 XR cerv spine AP/LAT/FLX/EXT [facility] [employer] Other XR cerv spine AP/LAT/FLX/EXT [facility] [employer] Other XR cerv spine AP/LAT/FLX/EXT [address] [place] [address] [employer] Other XR cerv spine AP/LAT/FLX/[place] [address] [employer] Other XR cerv spine AP/LAT/FLX/EXT XRay Report [employer] Other XR cerv spine AP/LAT/FLX/EXT Signed [employer] Other XR cerv spine AP/LAT/FLX/EXT Patient: Jovana Xie MR#: [id number] [employer] Other XR cerv spine AP/LAT/FLX/EXT 585 [employer] Other XR cerv spine AP/LAT/FLX/EXT : 1970 Acct:[id number] [employer] Other XR cerv spine AP/LAT/FLX/EXT Age/Sex: 52 / F ADM Date: 06/21/22 We[employer] Other XR cerv spine AP/LAT/FLX/EXT Loc: [facility] Room: Type: REG CLI [employer] Other XR cerv spine AP/LAT/FLX/EXT Attending Dr: Charu Pham MD [employer] Other XR cerv spine AP/LAT/FLX/EXT Copies to: Charu Pham MD [employer] Other XR cerv spine AP/LAT/FLX/EXT Ordering Provider: Charu Pham MD [employer] Other XR cerv spine AP/LAT/FLX/EXT Date of Service: 06/21/22 We[employer] Other XR cerv spine AP/LAT/FLX/EXT XR/XR cerv spine AP/LAT/FLX/EXT: Numbness of left hand [employer] Other XR cerv spine AP/LAT/FLX/EXT AP with lateral neutral, flexion extension views of the cervical spine [employer] Other XR cerv spine AP/LAT/FLX/EXT HISTORY: Cervical spine pain. Numbness and tingling of the arms [employer] Other XR cerv spine AP/LAT/FLX/EXT COMPARISON: None [employer] Other XR cerv spine AP/LAT/FLX/EXT Cervical lordosis is adequate. [employer] Other XR cerv spine AP/LAT/FLX/EXT No acute cervical spine fracture identified. [employer] Other XR cerv spine AP/LAT/FLX/EXT No cervical spine listhesis identified. [employer] Other XR cerv spine AP/LAT/FLX/EXT Disc spaces are adequate. [employer] Other XR cerv spine AP/LAT/FLX/EXT Facets are in adequate alignment. [employer] Other XR cerv spine AP/LAT/FLX/EXT No hypermobility with flexion and extension views. [employer] Other XR cerv spine AP/LAT/FLX/EXT The dens is intact. [employer]bs Other XR cerv spine AP/LAT/FLX/EXT The craniocervical junction is unremarkable. [employer] Other XR cerv spine AP/LAT/FLX/EXT No paraspinal soft tissue abnormality seen. Benign posterior soft tissue calcification at C7 level. [employer] Other XR cerv spine AP/LAT/FLX/EXT XR/XR cerv spine AP/LAT/FLX/EXT [employer] Other XR cerv spine AP/LAT/FLX/EXT IMPRESSION: No hypermobility. No acute cervical spine fracture. Webs Other XR cerv spine AP/LAT/FLX/EXT Impression dictated by: Dvein Norwood M.D.06/21/2022 3:15 PM We[employer] Other XR cerv spine AP/LAT/FLX/EXT Dictation Location: [place] [address] [employer] Other XR cerv spine AP/LAT/FLX/EXT Transcribed By: PWS 06/21/22 [facility] We[employer] Other XR cerv spine AP/LAT/FLX/EXT Dictated By: Dvein Norwood DO 06/21/22 [facility] [employer] Other XR cerv spine AP/LAT/FLX/EXT Signed By: Webs Other XR cerv spine AP/LAT/FLX/EXT 06/21/22 [facility] We[employer] Other PAP ACOG PANEL 2: 30 to 65on 12-06-2021 . . Normal [facility] Comment on above: Result Comment: Perf ormed at: WB Performed By: #### 4 [id number] #### [facility] [address] [place] [address] Dr. Eron Spencer Age Gdln ACOG Testing 30-65 Normal [facility] Comment on above: Performed By: #### 4 [id number] #### [facility] [address] [address] [address] Eron Spencer DIAGNOSIS: Comment Normal [facility] Comment on above: Result Comment: NEGA TIVE FOR INTRAEPITHELIAL LESION OR MALIGNANCY. THIS SPECIMEN WAS RESCREENED PART OF OUR PRESS DEPARTMENT MANAGER PROGRAM. Performed at: WB Performed By: #### 4 [id number] #### [facility] [address] [place] [address] Dr. Eron Spencer HPV Aptima Negative Normal Negative [facility] Comment on above: Result Comment: This nucleic acid amplification test detects fourteen high-risk HPV types (16,18,31,33,35,39,45,51,52,56,58,59,66,68) without differentiation. Performed at: =G Performed By: #### 4 [id number] #### [facility] [address] [place] [address] Dr. Eron Spencer Methodology: Comment Normal [facility] Comment on above: Result Comment: This liquid based ThinPrep(R) pap test was screened with the use of an image guided system. Performed at: WB Performed By: #### 4 [id number] #### [facility] [address] [place] [address] Dr. Eron Spencer Note: Comment Normal [facility] Comment on above: Result Comment: The Pap smear is a screening test designed to aid in the detection of premalignant and malignant conditions of the uterine cervix. It is not a diagnostic procedure and should not be used as the sole means of detecting cervical cancer. Both false-positive and false-negative reports do occur. . Performed at: WB Performed By: #### 4 [id number] #### [facility] [address] [place] [address] Dr. Eron Spencer Performed by: Comment Normal [facility] Comment on above: Result Comment: Kimberly Duarte, Silk Screen Painter (ASCP) Performed at: WB Performed By: #### 4 [id number] #### [facility] [address] [place] [address] Dr. Eron Spencer QC reviewed by: Comment Normal [facility] Comment on above: Result Comment: Israel Velazquez, Supervisory Silk Screen Painter (ASCP) Performed at: WB Performed By: #### 4 [id number] #### [facility] [address] [place], [place] [address] Dr. Eron Spencer Specimen adequacy: Comment Normal [facility] Comment on above: Result Comment: Sati sfactory for evaluation. No endocervical component is identified. Performed at: WB Performed By: #### 4 [id number] #### [facility] [address] [place], [place] [address] Dr. Eron Spencer MG MAMM SCREEN 3D ARMAAN CADon 12-01-2021 MG MAMM SCREEN 3D ARMAAN CAD Patient: JOVANA XIE Exam Date: 12/01/2021 : 1970 Gender:F Ordering : DR ELVIA SWEENEY . Admission #: [id number] Family : Order #: [id number] CLICK HERE TO VIEW EXAM RADIOLOGY REPORT PROCEDURE: MAMMOGRAM SCREENING 3D BILATERAL CAD COMPARISON: DIGITIZED_MAMMO, 04/15/2010. MG MAMM SCREEN ARMAAN W CAD, 09/19/2016. INDICATIONS: Screening mammography Calculator Name NCI Breast Cancer Risk Assessment Tool 5 Year Breast Cancer Risk 0.90% Lifetime Breast Cancer Risk 8.80% Personal Breast Cancer No Personal Ovarian Cancer No Treatments None Family Cancers None LOCATION: [facility] BREAST COMPOSITION: Heterogeneously dense,which may obscure small [...] MD on 12/01/2021 at 11:45 Normal [facility] CBC AUTO DIFFon 11-30-2021 BASO # 0.0 103/ul Normal 0.0-0.1 [facility] Comment on above: Performed By: #### L IPID, CMP #### [facility] [address], [place] [address] Dr. Eron Spencer Basophils/100 WBC (Bld) 0.4 % Normal 0.2-2.0 [facility] Comment on above: Performed By: #### L IPID, CMP #### [facility] [address] [place] [address] Dr. Eron Spencer EO # 0.2 103/ul Normal 0.0-0.7 [facility] Comment on above: Performed By: #### L IPID, CMP #### [facility] [address] [place] [address] Dr. Eron Spencer Eosinophils/100 WBC (Bld) 2.0 % Normal 0.9-7.0 [facility] Comment on above: Performed By: #### L IPID, CMP #### [facility] [address] [place] [address] Dr. Eron Spencer Erythrocyte distribution width (RBC) [Ratio] 14.0 % Normal 11.0-15.0 [facility] Comment on above: Performed By: #### L IPID, CMP #### [facility] [address] [place] [address] Dr. Eron Spencer Hematocrit (Bld) [Volume fraction] 46.7 % Normal 36.0-48.0 [facility] Comment on above: Performed By: #### L IPID, CMP #### [facility] [address] [place] [address] Dr. Eron Spencer Hemoglobin (Bld) [Mass/Vol] 15.3 g/dL Normal 12.0-16.0 [facility] Comment on above: Performed By: #### L IPID, CMP #### [facility] [address] [place] [address] Dr. Eron Spencer IG # 0.03 10e3/ul Normal 0.00-0.03 [facility] Comment on above: Performed By: #### L IPID, CMP #### [facility] [address] [place] [address] Dr. Eron Spencer IG % 0.3 % Normal 0.0-0.5 [facility] Comment on above: Performed By: #### L IPID, CMP #### [facility] [address] [place] [address] Dr. Eron Spencer LYMPH # 2.7 103/ul Normal 1.2-3.8 [facility] Comment on above: Performed By: #### L IPID, CMP #### [facility] [address] [place] [address] Dr. Eron Spencer Lymphocytes/100 WBC (Bld) 29.7 % Normal 20.5-60.0 [facility] Comment on above: Performed By: #### L IPID, CMP #### [facility] [address] [place] [address] Dr. Eron Spencer MANUAL DIFF REQ NO Normal [facility] Comment on above: Performed By: #### L IPID, CMP #### [facility] [address] [place] [address] Dr. Eron Spencer MCH (RBC) [Entitic mass] 27.7 pg Normal 26.7-34.0 [facility] Comment on above: Performed By: #### L IPID, CMP #### [facility] [address] [place] [address] Dr. Eron Spencer MCHC (RBC) [Mass/Vol] 32.8 g/dL Normal 29.9-35.2 [facility] Comment on above: Performed By: #### L IPID, CMP #### [facility] [address] [place] [address] Dr. Eron Spencer MCV (RBC) [Entitic vol] 84.6 fL Normal 81.0-99.0 [facility] Comment on above: Performed By: #### L IPID, CMP #### [facility] [address] [place] [address] Dr. Eron Spencer MONO # 0.6 103/ul Normal 0.3-0.8 [facility] Comment on above: Performed By: #### L IPID, CMP #### [facility] [address] [place] [address] Dr. Eron Spencer Monocytes/100 WBC (Bld) 7.0 % Normal 1.7-12.0 [facility] Comment on above: Performed By: #### L IPID, CMP #### [facility] [address] [address] [address] Eron Spencer NEUT # 5.4 103/ul Normal 1.4-6.5 [facility] Comment on above: Performed By: #### L IPID, CMP #### [facility] [address] [place] [address] Dr. Eron Spencer Neutrophils/100 WBC (Bld) 60.6 % Normal 43.0-75.0 [facility] Comment on above: Performed By: #### L IPID, CMP #### [facility] [address] [address] [address] Eron Spencer Platelet mean volume (Bld) [Entitic vol] 10.1 fL Normal 9.5-13.5 [facility] Comment on above: Performed By: #### L IPID, CMP #### [facility] [address] [place] [address] Dr. Eron Spencer PLT 297 103/ul Normal 150-450 [facility] Comment on above: Performed By: #### L IPID, CMP #### [facility] [address] [place] [address] Dr. Eron Spencer RBC 5.52 106/ul Critically high 4.20-5.40 [facility] Comment on above: Performed By: #### L IPID, CMP #### [facility] [address] [place] [address] Dr. Eron Spencer WBC 9.0 103/ul Normal 4.0-11.0 [facility] Comment on above: Performed By: #### L IPID, CMP #### [facility] [address] [place] [address] Dr. Eron Spencer GLYCOHEMOGLOBIN A1Con 2021 ADA RECOMMENDATION SEE BELOW Normal [facility] Comment on above: Result Comment: ADA RECOMMENDED LIMIT 4.0 - 6.0 ADA THERAPEUTIC TARGET < 7.0 ACTION SUGGESTED > 7.0 Performed By: #### A 1C #### [facility] [address] [place] [address] Dr. Eron Spencer Glucose [Mass/Vol] 117 mg/dL Normal [facility] Comment on above: Performed By: #### A 1C #### [facility] [address] [address] [address] Eron Spencer HbA1c (Bld) [Mass fraction] 5.7 % Normal 4.5-6.2 [facility] Comment on above: Performed By: #### A 1C #### [facility] [address] [place] [address] Dr. Eron Spencer LIPID PROFILEon 11-30-2021 CHOL-HDL RATIO NORM SEE BELOW Normal [facility] Comment on above: Result Comment: 3.3 - 4.4 LOW RISK 4.4 - 7.1 AVERAGE RISK 7.1 - 11.0 MODERATE RISK >11.0 HIGH RISK Performed By: #### L IPID, CMP #### [facility] [address] [place] [address] Dr. Eron Spencer Cholesterol [Mass/Vol] 187 mg/dL Normal <=200 [facility] Comment on above: Performed By: #### L IPID, CMP #### [facility] [address] [place] [address] Dr. Eron Spencer Cholesterol in HDL [Mass/Vol] 42 mg/dL Normal 40-60 [facility] Comment on above: Performed By: #### L IPID, CMP #### [facility] [address] [place] [address] Dr. Eron Spencer Cholesterol in LDL [Mass/Vol] 127.4 mg/dL Normal [facility] Comment on above: Performed By: #### L IPID, CMP #### [facility] [address] [place] [address] Dr. Eron Spencer Cholesterol.total/ Cholesterol in HDL [Mass ratio] 4.5 {ratio} Normal [facility] Comment on above: Performed By: #### L IPID, CMP #### [facility] [address] [place] [address] Dr. Eron Spencer HDL NORMAL > or = 60 mg/dl - LOW CARDIOVASCULAR RISK <40 mg/dl - HIGH CARDIOVASCULAR RISK Normal [facility] Comment on above: Performed By: #### L IPID, CMP #### [facility] [address] [address] [address] Eron Spencer LDL CALC NORMAL SEE BELOW Normal [facility] Comment on above: Result Comment: <100 mg/dl OPTIMAL 100 - 129 mg/dl NEAR OR ABOVE OPTIMAL 130 - 159 mg/dl BORDERLINE HIGH 160 - 189 mg/dl HIGH >190 mg/dl VERY HIGH Performed By: #### L IPID, CMP #### [facility] [address] [address] [address] Eron Spencer Triglyceride [Mass/Vol] 88 mg/dL Normal <=150 [facility] Comment on above: Performed By: #### L IPID, CMP #### [facility] [address] [address] [address] Eron Spencer VLDL CALC 17.6 mg/dL Normal [facility] Comment on above: Performed By: #### L IPID, CMP #### [facility] [address] [place] [address] Dr. Eron Spencer PROF 14(COMP METB)on 022 Albumin [Mass/Vol] 3.3 g/dL Critically low 3.4-5.0 [facility] Comment on above: Performed By: #### L IPID, CMP #### [facility] [address] [address] [address] Eron Spencer Albumin/Globulin [Mass ratio] 0.8 {ratio} Normal [facility] Comment on above: Performed By: #### L IPID, CMP #### [facility] [address] [address] [address] Eron Spencer ALP [Catalytic activity/Vol] 132 U/L Critically high 46-116 [facility] Comment on above: Performed By: #### L IPID, CMP #### [facility] [address] [address] [address] Eron Spencer ALT [Catalytic activity/Vol] 79 U/L Critically high 14-59 [facility] Comment on above: Performed By: #### L IPID, CMP #### [facility] [address] [place] [address] Dr. Eron Spencer Anion gap [Moles/Vol] 15.4 mmol/L Normal [facility] Comment on above: Performed By: #### L IPID, CMP #### [facility] [address] [place] [address] Dr. Eron Spencer AST [Catalytic activity/Vol] 44 U/L Critically high 15-37 [facility] Comment on above: Performed By: #### L IPID, CMP #### [facility] [address] [place] [address] Dr. Eron Spencer Bilirubin [Mass/Vol] 0.6 mg/dL Normal 0.2-1.0 [facility] Comment on above: Performed By: #### L IPID, CMP #### [facility] [address] [place] [address] Dr. Eron Spencer Calcium [Mass/Vol] 9.0 mg/dL Normal 8.5-10.1 [facility] Comment on above: Performed By: #### L IPID, CMP #### [facility] [address] [place] [address] Dr. Eron Spencer Chloride [Moles/Vol] 102 mmol/L Normal 98-107 [facility] Comment on above: Performed By: #### L IPID, CMP #### [facility] [address] [place] [address] Dr. Eron Spencer CO2 [Moles/Vol] 24.5 mmol/L Normal 21.0-32.0 [facility] Comment on above: Performed By: #### L IPID, CMP #### [facility] [address] [place] [address] Dr. Eron Spencer Creatinine [Mass/Vol] 0.90 mg/dL Normal 0.55-1.02 [facility] Comment on above: Performed By: #### L IPID, CMP #### [facility] [address] [place] [address] Dr. Eron Spencer EGFR-AF CAMEROONIAN >80 Normal >=60 [facility] Comment on above: Performed By: #### L IPID, CMP #### [facility] [address] [place] [address] Dr. Eron Spencer EGFR-NON AF CAMEROONIAN >66 Normal >=60 [facility] Comment on above: Performed By: #### L IPID, CMP #### [facility] [address] [place] [address] Dr. Eron Spencer Globulin (S) [Mass/Vol] 4.1 g/dL Normal [facility] Comment on above: Performed By: #### L IPID, CMP #### [facility] [address] [place] [address] Dr. Eron Spencer Glucose [Mass/Vol] 96 mg/dL Normal 74-106 [facility] Comment on above: Performed By: #### L IPID, CMP #### [facility] [address] [place] [address] Dr. Eron Spencer Potassium [Moles/Vol] 3.9 mmol/L Normal 3.5-5.1 [facility] Comment on above: Performed By: #### L IPID, CMP #### [facility] [address] [place] [address] Dr. Eron Spencer Protein [Mass/Vol] 7.4 g/dL Normal 6.4-8.2 [facility] Comment on above: Performed By: #### L IPID, CMP #### [facility] [address] [place] [address] Dr. Eron Spencer Sodium [Moles/Vol] 138 mmol/L Normal 136-145 [facility] Comment on above: Performed By: #### L IPID, CMP #### [facility] [address] [place] [address] Dr. Eron Spencer Urea nitrogen [Mass/Vol] 12.0 mg/dL Normal 7.0-18.0 [facility] Comment on above: Performed By: #### L IPID, CMP #### [facility] [address] [place] [address] Dr. Eron Spencer Urea nitrogen/Creatinin e [Mass ratio] 13.3 mg/mg Normal [facility] Comment on above: Performed By: #### L IPID, CMP #### [facility] [address] [place] [address] Dr. Eron Spencer VITAMIN D 25 OHon 11-30-2021 VIT D 25-OH 35.6 ng/mL Normal [facility] Comment on above: Performed By: #### L IPID, CMP #### [facility] [address] [place] [address] Dr. Eron Spencer VIT D RANGES SEE BELOW Normal [facility] Comment on above: Result Comment: <20 ng/mL Vit D deficient 20 - <30 ng/mL Vit D insufficient 30 - 100 ng/mL Vit D sufficient >100 ng/mL Potential Toxicity Performed By: #### L IPID, CMP #### [facility] [address] [place] [address] Dr. Eron Spencer GROUP A STREP CULTUREon 11-03 S. pyogenes Ag Ql (Unsp spec) Culture Observations: NEGATIVE FOR GROUP A STREPTOCOCCUS. Normal [facility] Comment on above: Performed By: #### L IPID, CMP #### [facility] [address] [place] [address] Dr. Eron Spencer STREPT SCREENon 11-25-2021 STREP SCREEN A Negative Normal NEGATIVE [facility] Comment on above: Performed By: #### S SCRN, GRASTCX #### [facility] [address] [place] [address] Dr. Eron Spencer XR CHEST 1 Von [...] CAITLYN WATTS Date: 2021-11-25 15:41 Normal [facility] Covid-19 PCR (CVDTB)on 11-03 SARS-CoV-2 (COVID-19) RNA SAVANNAH+probe Ql (Unsp spec) Not detected Normal NOT DETECTED [facility] Comment on above: Result Comment: This test is not yet approved or cleared by the [place] FDA. When there are no FDA-approved or cleared tests available, and other criteria are met, FDA can make tests available under an emergency access mechanism called an Emergency Use Authorization (EUA). The EUA for this test is supported by the [place] of Health and Human Service's (HHS's) declaration [...] Performed By: #### L IPID, CMP #### [facility] [address] [place] [address] Dr. Eron Spencer Glucose Glucometer (BldC) [M ass/Vol]Ordered By: Charu Pham on 09-22-2021 Glucose [Mass/Vol] 97 mg/dL [facility] Comment on above: Random Glucose Refer ence Range is dependent on time and content of last meal. Glucose of more than 200 mg/dL in a nonstressed, ambulatory subject supports the diagnosis of Diabetes Mellitus. COVID-19 Positive/NegativeOr dered By: Charu Pham on 09-20-2021 SARS-CoV-2 (COVID-19) N gene SAVANNAH+probe Ql (Resp) Negative Negative [facility] Comment on above: Testing for SARS-CoV -2 by RT-PCRThis test was developed and its performance characteristics determined by [employer] and validated at the [facility]. This test has not been [...] 09-15-2021 Basophils (Bld) [#/Vol] 0.1 10*3/uL 0.0-0.2 [facility] Basophils/100 WBC Auto (Bld) Ordered By: Charu Pham on 09-15-2021 Basophils/100 WBC (Bld) 0.6 % [facility] Blood hemoglobin measurement (mass/volume)Ordered By: Charu Pham on 09-15-2021 Hemoglobin (Bld) [Mass/Vol] 13.7 g/dL 11.8-15.4 [facility] Blood leukocytes automated c ount (number/volume)Ordered By: Charu Pham on 09-15-2021 WBC (Bld) [#/Vol] 9.4 10*3/uL 4.5-11.0 [facility] Body fluid albumin measureme nt (mass/volume)Ordered By: Charu Pham on 09-15-2021 Albumin (Body fld) [Mass/Vol] 3.0 g/dL 3.2-5.5 [facility] Creatinine and Glomerular fi ltration rate.predicted panel (S/P/Bld)Ordered By: Charu Pham on 09-15-2021 Creatinine [Mass/Vol] 0.82 mg/dL 0.44-1.03 [facility] Eosinophils Auto (Bld) [#/Vo l]Ordered By: Charu Pham on 09-15-2021 Eosinophils (Bld) [#/Vol] 0.3 10*3/uL 0.0-0.45 [facility] Eosinophils/100 WBC Auto (Bl d)Ordered By: Charu Pham on 09-15-2021 Eosinophils/100 WBC (Bld) 3.1 % [facility] Erythrocyte distribution wid th Auto (RBC) [Ratio]Ordered By: Charu Pham on 09-15-2021 Erythrocyte distribution width (RBC) [Ratio] 15.0 % 11.9-15.3 [facility] Estimated glomerular filtrat ion rate (GFR) non- AmericanOrdered By: Charu Pham on 09-15-2021 GFR/1.73 sq M.predicted among non-blacks MDRD (S/P/Bld) [Vol rate/Area] > 60 mL/Min [facility] Globulin Calc (S) [Mass/Vol] Ordered By: Charu Pham on 09-15-2021 Globulin (S) [Mass/Vol] 2.9 g/dL [facility] Hematocrit Auto (Bld) [Volum e fraction]Ordered By: Charu Pham on 09-15-2021 Hematocrit (Bld) [Volume fraction] 40.8 % 34.0-46.4 [facility] Laboratory - Hematology and Cell countsOrdered By: Charu Pham on 09-15-2021 Nucleated RBC/100 WBC (Bld) [Ratio] 0.0 % 0-0.5 [facility] Lymphocytes Auto (Bld) [#/Vo l]Ordered By: Charu Pham on 09-15-2021 Lymphocytes (Bld) [#/Vol] 2.3 10*3/uL 1.00-4.8 [facility] Lymphocytes/100 WBC Auto (Bl d)Ordered By: Charu Pham on 09-15-2021 Lymphocytes/100 WBC (Bld) 24.5 % [facility] MCH Auto (RBC) [Entitic mass ]Ordered By: Charu Pham on 09-15-2021 MCH (RBC) [Entitic mass] 28.4 pg 24.7-34.3 [facility] MCHC Auto (RBC) [Mass/Vol]Or dered By: Charu Pham on 09-15-2021 MCHC (RBC) [Mass/Vol] 33.6 g/dL 32.0-35.0 [facility] MCV Auto (RBC) [Entitic vol] Ordered By: Charu Pham on 09-15-2021 MCV (RBC) [Entitic vol] 84.6 fL 80-100 [facility] Monocytes Auto (Bld) [#/Vol] Ordered By: Charu Pham on 09-15-2021 Monocytes (Bld) [#/Vol] 0.9 10*3/uL 0.0-0.8 [facility] Monocytes/100 WBC Auto (Bld) Ordered By: Charu Pham on 09-15-2021 Monocytes/100 WBC (Bld) 9.7 % [facility] Neutrophils Auto (Bld) [#/Vo l]Ordered By: Charu Pham on 09-15-2021 Neutrophils (Bld) [#/Vol] 5.9 10*3/uL 1.8-7.7 [facility] Neutrophils/100 WBC Auto (Bl d)Ordered By: Charu Pham on 09-15-2021 Neutrophils/100 WBC (Bld) 62.1 % [facility] No Panel InformationOrdered By: Charu Pham on 09-15-2021 Estimated GFR () > 60 mL/Min [facility] Comment on above: GFR estimated refere nce range: According to KDOQI guidelines, <60 ml/min/1.73m2 is sufficient to diagnose a patient with chronic kidney disease. Pharmacy Creatinine Clearance (Chem N/A [facility] Platelet mean volume Auto (B ld) [Entitic vol]Ordered By: Charu Pham on 09-15-2021 Platelet mean volume (Bld) [Entitic vol] 9.1 fL 6.3-10.7 [facility] Platelets Auto (Bld) [#/Vol] Ordered By: Charu Pham on 09-15-2021 Platelets (Bld) [#/Vol] 285 10*3/uL 150-450 [facility] Protein [Mass/volume] in Ser um or PlasmaOrdered By: Charu Pham on 09-15-2021 Protein [Mass/Vol] 5.9 g/dL 6.1-7.9 [facility] RBC Auto (Bld) [#/Vol]Ordere d By: Charu Pham on 09-15-2021 RBC (Bld) [#/Vol] 4.82 10*6/uL 3.60-5.00 [facility] Serum or plasma alanine martinez otransferase measurement without P-5'-P (enzymatic activiOrdered By: Charu Pham on 09-15-2021 ALT No additional P-5'-P [Catalytic activity/Vol] 59 U/L 10-60 [facility] Serum or plasma albumin/glob ulin mass ratioOrdered By: Charu Pham on 09-15-2021 Albumin/Globulin [Mass ratio] 1.0 {ratio} [facility] Serum or plasma alkaline sera sphatase measurement (enzymatic activity/volume)Ordered By: Charu Pham on 09-15-2021 ALP [Catalytic activity/Vol] 90 U/L 32-92 [facility] Serum or plasma aspartate am inotransferase measurement (enzymatic activity/volume)Ordered By: Charu Pham on 09-15-2021 AST [Catalytic activity/Vol] 40 U/L 10-42 [facility] Serum or plasma calcium khurram urement (mass/volume)Ordered By: Charu Pham on 09-15-2021 Calcium [Mass/Vol] 8.9 mg/dL 8.2-10.2 [facility] Serum or plasma chloride rae surement (moles/volume)Ordered By: Charu Pham on 09-15-2021 Chloride [Moles/Vol] 105 mmol/L 95-114 [facility] Serum or plasma glucose khurram urement (mass/volume)Ordered By: Charu Pham on 09-15-2021 Glucose [Mass/Vol] 94 mg/dL 70-100 [facility] Comment on above: ADA recommended refe rence rangeRandom Glucose Reference Range is dependent on time and content of last meal. Glucose of more than 200 mg/dL in a nonstressed, ambulatory subject supports the diagnosis of Diabetes Mellitus. Serum or plasma potassium me asurement (moles/volume)Ordered By: Charu Pham on 09-15-2021 Potassium [Moles/Vol] 4.3 mmol/L 3.5-5.1 [facility] Serum or plasma sodium measu rement (moles/volume)Ordered By: Charu Pham on 09-15-2021 Sodium [Moles/Vol] 140 mmol/L 136-146 [facility] Serum or plasma total biliru bin measurement (mass/volume)Ordered By: Charu Pham on 09-15-2021 Bilirubin [Mass/Vol] 0.6 mg/dL 0.3-1.2 [facility] Serum or plasma total carbon dioxide measurement (moles/volume)Ordered By: Charu Pham on 09-15-2021 CO2 [Moles/Vol] 25.2 mmol/L 22.0-30.0 [facility] Serum or plasma urea nitroge n measurement (mass/volume)Ordered By: Charu Pham on 09-15-2021 Urea nitrogen [Mass/Vol] 11 mg/dL 02-24 [facility] CNPNon 04-26-2021 CNPN Telephone (JACOBO) ---- JOVANA XIE ([id number]) 1970 F Date Time Provider Department 04/26/21 MAEGAN ANGULO During your visit today, we recorded the following information about you: Calli Live 04/26/2021 10:21 AM Signed Patient called to follow up on records to see if they had been received. Informed patient that they are not in her chart at this time. Encouraged patient to have records sent to [phone]. Calli Live 04/26/2021 11:57 AM Signed Records received and placed on Maris Ramirez's desk for review. Calli Live Allergies As of Date: 04/26/2021 Noted Allergy Reaction DEXAMETHASONE 12/10/2020 8 - GI Upset Comments: HAIR LOSS PENICILLINS 12/10/2020 14 - Other: See Comments Comments: HIGH FEVER-CHILLS Date Reviewed: 02/10/2021 Reviewed by: Maris Ramirez, CESAR.SENIOR ANIMATOR - Fully Assessed Reason for Visit: Nurse [...] by CALLI LIVE on 04/26/21 [facility] 02-11-2021 ILEANAN Telephone (PAINMN) ---- JOVANA XIE ([id number]) 1970 F Date Time Provider Department 02/11/21 MARIS RAMIREZ During your visit today, we recorded the following information about you: Maris Ramirez APRN.ILEANA 02/11/2021 7:37 AM Signed Please advise patient we received a fax from [facility]. It was the discharge page after her MRI. This is not what I had asked her to send. We need the procedure notes from her pain physician to see what procedures she has had done in the past. Thanks, LITTLE Steel APRN.CNP 02/11/2021 7:40 AM Signed Her provider in [place] is [facility]. Also need the EMG. [...] Encounter Status:Closed by MARIS RAMIREZ on 02/11/21 [facility] Tele[facility] (PAINMN) ---- JOVANA XIE ([id number]) 1970 F Date Time Provider Department 02/02/21 MARIS RAMIREZ PAINMN During your visit today, we recorded the following information about you: Maris Ramirez APRN.SENIOR ANIMATOR 02/02/2021 12:33 PM Signed Please advise patient [...] states she will try to get to [facility] today to get films. Calli Live Allergies As of Date: 02/02/2021 Noted Allergy Reaction DEXAMETHASONE 12/10/2020 8 - GI Upset Comments: HAIR LOSS PENICILLINS 12/10/2020 14 - Other: See Comments Comments: HIGH FEVER-CHILLS Date Reviewed: 01/27/2021 Reviewed by: José Miguel Suarez, fire watchman - Fully Assessed Reason for Visit: Results [...] Status:Closed by MARIS RAMIREZ on 02/02/21 Normal [facility] XR LUMBAR 4V AP/LAT/ FLEX/EX Ton [...] lumbar facet arthrosis. Mild lower lumbar spondylosis. 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: RASHMI Transcribe Date/Time: Feb 03 2021 9:38A Dictated by : SAULO ROCA MD This examination was interpreted and the report reviewed and electronically signed by: SAULO ROCA MD on Feb 03 2021 9:44AM EST [id number] Normal [facility] XR LUMBAR MOTION 4V AP/LAT/ FLEX/EXTon 02-02-2021 [facility] MR Lumbar spine WO and W con [...] and assume there are 5 lumbar-type vertebrae. 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: RASHMI Transcribe Date/Time: Jan 27 2021 11:21A Dictated by : MARIELLE SCOTT MD This examination was interpreted and the report reviewed and electronically signed by: MARIELLE SCOTT MD on Jan 27 2021 11:45AM [facility] DIVISION OF RADIOLOGY * * *Final Report* * * DATE OF EXAM: Jan 27 2021 10:37AM [facility] 0304 - MRI LUMBAR SPINE WO/W IVCON [...] within normal limits. DIVISION OF RADIOLOGY Provider, [facility] [place] - 01/27/2021 * * *Final Report* * * DATE OF EXAM: Jan 27 2021 10:37AM [address] 0304 - MRI LUMBAR SPINE WO/W IVCON [...] and assume there are 5 lumbar-type vertebrae. 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: [facility]ENTER[facility] Transcribe Date/Time: Jan 27 2021 11:21A Dictated by : MARIELLE SCOTT MD This examination was interpreted and the report reviewed and electronically signed by: MARIELLE SCOTT MD on Jan 27 2021 11:45AM EST [facility] Radiology Study observation (narrative) [facility] MR Lumbar spine WO and W con trast IVOrdered By: Ccf Provider on 01-27-2021 [facility] MRI LUMBAR SPINE WO/W IVCONo n 01-27-2021 [...] and assume there are 5 lumbar-type vertebrae. 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: [employer] Transcribe Date/Time: Jan 27 2021 11:21A Dictated by : MARIELLE SCOTT MD This examination was interpreted and the report reviewed and electronically signed by: MARIELLE SCOTT MD on Jan 27 2021 11:45AM EST [id number] Normal [facility]N Telephone (PAINMN) ---- JOVANA XIE ([id number]) 1970 F Date Time Provider Department 12/22/20 MARIS RAMIREZ During your visit today, we recorded the following information about you: Maris Ramirez APRN.SENIOR ANIMATOR 12/22/2020 3:00 PM Signed ----- Message from [employer] sent at 12/22/2020 12:17 PM EDT ----- Regarding: Confidential // Denial: PtSantos Xie // // Maegan Silva morning all, The below information is for a peer to peer and appeal for a service you have requested. Peer to Peer Information Is a Peer to Peer available?: Yes Does Peer to Peer need to be scheduled?: No Who can schedule?: N/A Who can complete the Peer to Peer?: , PA, MANAGER SHELL, LN Allowable Peer to Peer timeframe?: 3 business days starting from 12/20/2020 Payer Information Insurance Name: [employer] Insurance P2P option 3 Case #: [id number] Appeal Information Appeal Address: [place]. Attn: Appeals Department [address] [place] [address] Appeal Fax#: [phone] Special Appeal Instruction: Send it attention to: Appeals department and attached any pertinent supporting documenation Allowable Timeframe for Appeal: 90 days from the denial date Facility Information Location: [facility] Tax ID#: [id number] Patient Demographics Patient Last Name: Anne-Marie Patient First Name: Jovana Date of : 1970 Clinical/Denial Information Ordering Provider: Maegan Angulo Approved Services: N/A Denied Services: 35674 - MRI LUMBAR SPINE WO/W IVCON Alternative [...] contact April . Thank you for the attentionSelma. Maris Ramirez APRN.SENIOR ANIMATOR 12/22/2020 3:03 PM Signed Can you check [...] States that she has completed PT at [facility]. Patient given fax number to have records sent to our office. Calli Orellanae Bryce Live 12/24/2020 2:50 PM Signed PT report received from [facility]. Scanned into chart. Calli Wu Jj Ramirez APRN.ILEANA 12/24/2020 4:21 PM Signed I have now spoken to 2 physician reviewers and reviewed previous MRI and advised that PT notes are scanned into [employer]. They are requiring the PT notes be uploaded to [employer]. I sent a message to our authorization folks to have this done. She will need to reschedule the MRI. I sent her a [employer] message advising her of this. Maris Ramirez APRN.CNP Calli L Jj 12/24/2020 4:34 PM Signed Patient notified via phone and verbalizes understanding. She will reschedule. Calli Live Allergies As of Date: 12/22/2020 Noted [...] 20 m (more content not included)... [facility] Telephone (PAINMN) ---- JOVANA XIE ([id number]) 1970 F Date Time Provider Department 12/17/20 [...] Status:Closed by CALLI LIVE on 12/17/20 Normal [facility] CNOVon 12-10-2020 CNOV Office Visit (PAINMN) ---- JOVANA XIE ([id number]) 1970 F Date Time Provider Department 12/10/20 [...] internal providers or by letter via the [employer] for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 Strength deltoid , biceps , triceps , wrist extensors , wrist flexor , rn patient care strength 5/5. RLE Strength illopsoas, quadriceps, tibialis [...] reflex 0 . Bustos's sign negative. Coordination: Ncwjlr-[id number] testing and rapid alternating movements are normal Gait: Normal Review and summary of old records: X-ray hips and sacroiliac joints at [facility] on 10/27/22: No acute bone abnormality or significant degenerative changes of the hip joints. Unremarkable sacroiliac joints. CPAP compliance report from 03/06/22: Revealed poor compliance. PSG and CPAP titration at [facility] on 12/27/21: Mild sleep apnea with CPAP [...] and return instructions documented in this encounter [facility] 01-16-2024 Note Pt is here for follo w up from having a stress test, an echo. Review of Systems Cardiovascular: Positive for leg swelling and palpitations. Respiratory: Positive for shortness of breath. [facility] 01-16-2024 Note Cardiovascular Medic [facility] SUBJECTIVE Chief Complaint Patient presents with Atrial [...] complication, without long-term current use of insulin ([facility]) Diabetes mellitus type II, controlled ([facility]) Derangement of knee EVANS (dyspnea on exertion) Extrinsic asthma with status asthmaticus Headache Hemorrhoids Low back pain Metabolic syndrome X Morbid obesity ([facility]) Obesity, Class III, BMI 40-49.9 (morbid obesity) ([facility]) Osteoarthritis Pain in right foot Pain in thumb joint with movement of right hand Raynaud's phenomenon without gangrene Psoriasis Palpitations Sciatica Smoker Unilateral primary osteoarthritis, left knee Ulnar neuropathy Steatosis of liver Vitamin D3 deficiency Colon cancer screening Paroxysmal atrial fibrillation ([facility]) Carpal tunnel syndrome on both sides Carpal [...] 60 MINUTES P (more content not included)... [facility] 12-15-2023 Note In light of recurren t chest pain and EVANS, risk factors of HTN, DM, current smoker and obesity. Further testing with echocardiogram and stress test ordered. [facility] 12-15-2023 Note In light of EVANS, piter st pain, new onset a fib will order echocardiogram for cardiac evaluation of cardiac and valvular function, and lexiscan for cardiac perfusion- she states that she is not able to walk a treadmill r/t SOB. [facility] 12-15-2023 Note Hypertension is unch anged. Continue medications as prescribed Blood pressure will be reassessed at the next regular appointment. [facility] 12-15-2023 Note Pt states that she w as diagnosed with YU in the past and know that she needs to wear a Cpap- but she was not able to wear in the past and states she needs to be re-evaluated and f/U with sleep medicine [facility] 12-14-2023 Note Patient here for fol [...] All other systems reviewed and are negative. [facility] 12-14-2023 Note UTP CARDIOLOGY PROGR ESS [...] 130/88 and HR 141. She was in long-term for 3 months and has lost 35# since last visit. Had labs recently for Dr. Erazo. She said since she wasn't getting all her meds while in long-term, Dr. Erazo wanted to start from scratch [...] pen injector INJECT (more content not included)... [facility] 12-14-2023 Note [id number]- 3 fema le, HTN, DM Continue eliquis anticoagulation, and coreg Event monitor to be reviewed by Dr Pedraza RTC with Dr Pedraza in 1-3 months [facility] 12-03-2023 Note Patient Education Cardiovascular Atrial [...] these instructions at home: Medicines ? Take vaeh-kwk-ymlutpq and prescription medicines only as told by [...] A seizure. Thes (more content not included)... [facility] 10-23-2023 Note [id number] [facility] 10-22-2023 Evaluation + Plan note Extrac olesya from: Title:ANES Post General Author:Nolan Santiago DO Date:10/22/23 Plan Transfer/Discharge: Patient exhibiting no signs of N/V. Hydration status is adequate. Extracted from: Title:Jack Basic PRE Author:Jordin Santiago DO Date:10/22/23 Plan [place] [employer]esthesiologists (ASA) physical status classification: Class III. Anesthetic Preoperative Plan: Anesthesia General. Future Appointments Appointment Date:10/30/2023 09:45:00 AM Scheduled Provider:Melissa Erazo MD Location:[facility] Appointment Type:[facility]05-20-2024 Hospital Discharge instructions Patient Education 10/22/2023 11:00:14 [...] reduce GERD symptoms. Medicines. These may include: ?Mlpl-mul-xazwkew antacids. ?Medicines that make your stomach empty [...] may include: ?Fatty foods, like fried foods. ?[place] fruits, like oranges or lemon. ?Other foods [...] Do not drink alcohol. General instructions Take lnvy-dne-wzasvas and prescription medicines only as told by [...] provider. Document Revised: 07/18/2022 Document Reviewed: 07/18/2022 [employer] Patient Education 2022 [employer]. 10/22/2023 11:00:06 Diverticulosis MAGR (CUSTOM) Diverticulosis Many [...] unsweetened, w/added ascorbic acid 1 cup 0.5 [place] 1 cup 0.7 Vegetables Cooked Green beans 1 cup 4.0 Carrots 1/2 cup sliced 2.3 Peas 1 cup 8.8 Potato (baked, with skin) 1 medium potato 3.8 Raw [place] (with peel) 1 cucumber 1.5 Lettuce 1 [...] 8.7 Peanuts 1/2 cup 7.9 Chart from [facility] 2013. SEEK IMMEDIATE MEDICAL CARE IF: You [...] Reference. Available at http://www.nal.usda.gov/fnic/foodcomp/search/. Information adapted from: [facility] Patient Information 2009 [employer]. [employer] 2012 http://www.[employer]/contents/rnmuajirrveu-htjpdip-zaucws-the-basics 10/22/2023 11:00:00 Colon Polyps Colon Polyps Colon [...] hard liquor (44 mL). General instructions Take ladx-dji-boiwszc and prescription medicines only as told by [...] provider. Document Revised: 09/08/2020 Document Reviewed: 09/08/2020 [employer] Patient Education 2022 [employer]. 10/22/2023 10:59:59 Colonoscopy, Care After Surgery Salam (CUSTOM) Colonoscopy Care After Surgery Please read the instructions outlined below and refer to this sheet in the next few weeks. These discharge instructions provide you with general information on caring for yourself after you leave [facility]. Your doctor may also give you specific [...] day. 10/22/2023 10:59:56 Endoscopy, Care After Procedure [facility]) Endoscopy Care After Procedure Please read the instructions outlined below and refer to this sheet in the next few weeks. These discharge instructions provide you with general information on caring for yourself after you leave [facility]. Your doctor may also give you specific [...] Document Re-Released: 11/12/2006 ExitCare Patient Information 2009 [employer]. Follow Up Care 10/18/2023 10:35:15 With:Navdeep Valiente Address: [address] [place] [address], [address] [place] [address]- [phone] Business (1) When:1 to 2 weeks Comments:Call for any problems. [facility] [...] 130/88 and HR 141. She was in long-term for 3 months and has lost 35# since last visit. Had labs recently for Dr. Erazo. She said since she wasn't getting all her meds while in long-term, Dr. Erazo wanted to start from scratch [...] complication, without long-term current use of insulin ([facility]) Diabetes mellitus type II, controlled ([facility]) Derangement of knee Dyspnea Extrinsic asthma with status asthmaticus Headache Hemorrhoids Low back pain Metabolic syndrome X Morbid obesity ([facility]) Obesity, Class III, BMI 40-49.9 (morbid obesity) ([facility]) Osteoarthritis Pain in right foot Pain [...] Echo: 07/06/2021 Normal ventricu (more content not included)...[facility]06-07-2023 Evaluation note* Encounter Date Diagnosis Assessment Notes Treatment Notes Treatment Clinical Notes Nov, Right hand pain (ICD-10 - M79.641) Nov, Trigger thumb, right thumb (ICD-10 - M65.311) Patient is progressing well. May return for repeat injection or to discuss surgical release if recurs. Call with questions/concerns. [facility] Other 05-26-2023 NotePROCEDURE: XR HIPS ARMAAN 3_4V [...] Electronically authenticated by: ALEM PASCUAL Date: 2022-10-27 09:15[facility]05-26-2023 NotePROCEDURE: XR HIPS ARMAAN 3_4V WO PELVIS, [...] Electronically authenticated by: ALEM PASCUAL Date: 2022-10-27 09:15[facility]05-10-2023 Evaluation note* Encounter Date Diagnosis Assessment Notes [...] followup with neurosurgeon regarding left hand/arm numbness [facility] 01-18-2023 Evaluation note* Encounter Date Diagnosis [...] further treatment options. Call with questions/concerns . [facility] Other 02-25-2022 Evaluation note* Encounter Date Diagnosis Assessment Notes Treatment Notes Treatment Clinical Notes Jul, Cubital tunnel syndrome on left (ICD-10 - G56.22) Patient doing well, progress as tolerated Jul, Left carpal tunnel syndrome (ICD-10 - G56.02) Jul, Other specified postprocedural states (ICD-10 - Z98.890) Jul, Numbness of right hand (ICD-10 - R20.0) We will refer patient for EMG right upper extremity [facility] 12-17-2021 Evaluation note* Encounter Date Diagnosis [...] Other specified postprocedural states (ICD-10 - Z98.890) [facility] 10-20-2021 Evaluation note* Encounter Date Diagnosis [...] G56.02) Mar, Pre-op exam (ICD-10 - Z01.818) [facility] 09-09-2021 NoteHNO ID: [id number] Author: Maris Ramirez APRN.SENIOR ANIMATOR Service: ? Author Type: Nurse Practitioner Type: Progress Notes Filed: 02/11/2021 7:54 AM Note Text: [facility] Virtual Visit Evaluation Patient is identified by name and date of . This is a virtual visit using [employer] video visit. It required patient-provider interaction for the medical decision making as documented below. Date: February 10, 2021 - 7:34 AM Chief Complaint: lower back pain SUBJECTIVE: Jovana Xie is a 50 year old who presents to [facility] for a follow up [...] injections with her local pain physician in [place]. She does not recall the names of [...] areas of pain. Also photos sent via Plivo were reviewed during this visit. New Imaging [...] Obesity, Class III, BMI 40-49.9 (morbid obesity) ([facility]) Jovana Xie is a 50 year old female with lower back pain that intermittently radiates down to her buttocks and posterior legs. She is s/p lumbar decompression surgery approx 4-5 years ago. She states that she was pain free up until about a year and a half ago (more content not included)...[facility]09-01-2021 NoteHNO ID: [id number] Author: RT Nikkie(R) Service: ? Author Type: Pets Salesperson Type: Progress Notes Filed: 02/02/2021 5:23 PM [...] BY: RT Nikkie(R) February 02, 2021 5:23 [facility]08-26-2021 NoteHNO ID: [id number] Author: José Miguel Suarez, fire watchman Service: Radiology Author Type: Pets Salesperson Type: Progress Notes Filed: 01/27/2021 10:27 AM [...] Xie DATE: January 27, 2021 TIME: 10:02 [facility]08-26-2021 History of Present illness Narrative* Daniela SHABANA Valdez - 01/27/2021 10:00 AM EDT Radiology Service [...] 2021 TIME: 10:02 AM [facility] NoteHNO ID: [id number] Author: Maegan Angulo MD Service: ? Author [...] internal providers or by letter via the [employer] for external providers. Chief Complaint: Back pain History of Present Illness: Jovana Xie is a 50 year old who presents to [facility] for a follow up [...] line specific nursing protocol (more content not included)...[facility] Evaluation + Plan note No data available for this section [facility] Future Appointments Appointment Date:10/25/2023 09:30:00 AM Scheduled Provider:Melissa Erazo MD Location[facility] Future Appointments Appointment Date:10/22/2023 10:30:00 AM Scheduled Provider: Location:[facility] Appointment Type:Surgery FT Appointment Date:10/25/2023 09:30:00 AM Scheduled Provider:Melissa Erazo MD Location:[facility] Appointment Type:[facility] Evaluation + Plan note Future Appointments Appointment Date:11/27/2023 09:15:00 AM Scheduled Provider:Melissa Erazo MD Location:[facility] Appointment Type:[facility] Evaluation + Plan note Future Appointments Appointment Date:12/04/2024 08:00:00 AM Scheduled Provider: Location:[facility] Appointment Type: Medicare Wellness Subsequent Appointment Date:12/04/2024 08:45:00 AM Scheduled Provider:Melissa Erazo MD Location:[facility] Appointment Type:[facility] evaluation noteNo assessment information available [facility] Work Phone: evaluation noteNort [employer] Other evaluation note* Diagnosis Facet arthropathy, lumbar Lumbosacral spondylosis without myelopathy Degenerative disc disease, lumbar Degeneration of lumbar or lumbosacral intervertebral disc documented in this encounter [facility] note* Diagnosis Pathological fracture, other site, initial encounter for fracture documented in this encounter [facility] note* Diagnosis Vulvar itching Pruritus of genital organs [employer] exam for high-risk Medicare patient documented in [...] History dental surgery Hospitalization [facility] [employer] Other History general Narrative - [facility] Other Hospital Discharge instructions No data available for this section [facility] No data available for this section [facility] Summary Purpose Family History No [...] Specialty Diagnoses / Procedures Referred By Chloe xavier Referred To Contact MR IMAGING Diagnoses Pathological fracture, other site, initial encounter for fracture Procedures MRI LUMBAR SPINE WO/W IVCON MRI, LUMBAR SPINE COMBO Maris Ramirez, ROLLER TURNER.SENIOR ANIMATOR [address] [place] [address] [facility] [place] [address] Referral ID Status Reason Start Date Expiration Date V isits Requested Visits Authorized [id number] Closed Auto-Generate d Referral 01/13/2021 02/12/2021 1 1 Reason Refer to OLIVIA or Dr Padmini nath for EMG right upper ext Diagnosis 1 Numbness of right orjas nd (R20.0) Referral Organization [facility] Referring Provider First Name Charu Referring Provider Last Name Ankit Referring Provider Specialty Hand Surger y Referred Organization Unknown Facility Referred Provider Specialty Neurology Referral Priority Routine Additional Source Comments INFORMATION SOURCE (unrecogn ized section and content) DATE CREATED AUTHOR [facility]20[facility] DATE CREATED AUTHOR AUTHOR'S ORGANIZ ATION 11/10/2022 [facility] [place] [facility] DATE CREATED AUTHOR AUTHOR'S ORGANIZ ATION 03/22/2024 [facility] DATE CREATED AUTHOR AUTHOR'S ORGANIZ ATION 04/17/2024 [facility] DATE CREATED AUTHOR AUTHOR'S ORGANIZ ATION 06/17/2024 [facility] DATE CREATED AUTHOR AUTHOR'S ORGANIZ ATION 06/28/2024 [facility] DATE CREATED AUTHOR AUTHOR'S ORGANIZ ATION 07/24/2024 [facility] DATE CREATED AUTHOR AUTHOR'S ORGANIZ ATION 07/29/2024 [facility] DATE CREATED AUTHOR AUTHOR'S ORGANIZ ATION 07/30/2024 [facility] Care Teams (unrecognized sec tion and content) Team Status: Inactive Member Role Status Dates Charu Pham MD Attending Provider Active Elvia Sweeney MD Primary Care Provider Active Team Status: Active Member Role Status Dates Elvia Sweeney MD Primary Care Provider Active Team Status: Inactive Member Role Status Dates Elvia Sweeney MD Primary Care Provider Active Charu Pham MD Attending Provider Active Dental Instrument Maker Relationship Specialty Start Date End Date Asha Louis PA-C [address] [place] [address] Referring Neurology 12/09/20 Dental Instrument Maker Relationship Specialty Start Date End Date Asha Louis PA-C [address] [place] [id number] Referring Neurology 12/09/20 Dental Instrument Maker Relationship Specialty Start Date End Date Ayesha Brink DO [address] [place] [id number] Referring Physician Neurology 04/04/24 Dental Instrument Maker Relationship Specialty Start Date End Date Ayesha Brink DO [address] [place] [address] Referring Physician Neurology 04/04/24 Dental Instrument Maker Relationship Specialty Start Date End Date Ayesha Brink DO [address] [address] Referring Physician Neurology 04/04/24 Aparna Briseno NP [address] [phone] Nurse Practitioner Neurology 04/07/24 Dental Instrument Maker Relationship Specialty Start Date End Date Melissa Erazo MD [address] [place] [address] PCP - General Family Medicine 06/12/24 Ayesha Brink DO [address] [address] Referring Physician Neurology 04/04/24 Aparna Briseno NP [address] [phone] Nurse Practitioner Neurology 04/07/24 Dental Instrument Maker Relationship Specialty Start Date End Date Melissa Erazo MD [address] [place] [address] PCP - General Family Medicine 06/12/24 Ayesha Brink DO [address] [address] Referring Physician Neurology 04/04/24 Aparna Briseno NP [address] [phone] Nurse Practitioner Neurology 04/07/24 Goals (unrecognized section and content) Goals may [...] IVCON MRI, LUMBAR SPINE COMBO Maris Ramirez, ROLLER TURNER.SENIOR ANIMATOR [address] [place] [address] [place] [address] Referral ID Status Reason Start Date Expiration Date V isits Requested Visits Authorized [id number] Closed Auto-Generate d Referral 01/13/2021 02/12/2021 1 1 Reason Comments Migraine Back Pain Source Comments (unrecognize d section and content) In the event this informatio n is protected by the Federal Confidentiality of Alcohol and Drug Abuse Patient Records regulations: The Federal rules restrict any use of the information to criminally investigate or prosecute any alcohol or drug abuse patient.[facility] CenterIn the event this information is protected by the Federal Confidentiality of Alcohol and Drug Abuse Patient Records regulations: The Federal rules restrict any use of the information to criminally investigate or prosecute any alcohol or drug abuse patient.[facility] FOR RECORDS PERTAINING TO PATIENTS WHO ARE [...] BE BASED ON THE PRIMARY CLINICAL RECORDS. [facility] [employer] [facility] provides no warranty or guarantee of the accuracy or completeness of information in this document.
== END 2024-08-06 12:12 | disposition home or self-care (01) ==
PROVIDERS: PCP Family Medicine; Visit Provider Nurse Practitioner Family
DX: M54.17 Radiculopathy, lumbosacral region (principal); R93.7 Abnormal findings on diagnostic imaging of other parts of musculoskeletal system; M51.369 Other intervertebral disc degeneration, lumbar region without mention of lumbar back pain or lower extremity pain; M48.062 Spinal stenosis, lumbar region with neurogenic claudication
CPT/HCPCS: 72148

== ENCOUNTER 2025-04-21 10:46 | Outpatient (OUT) | payer OTHER, MEDICAID, SELFPAY ==
--- OUTSIDE RECORDS SUMMARY | 2025-04-21 10:58 | XMS_ITS | CCD ---
Author Organization [facility] [place] [facility] Care Team Providers Care Care Administrative Tech Name Role Phone MD Charu Pham Attending Provider MD Elvia Sweeney Primary Care Provider [phone] Charu Pham Unavailable MD Elvia Sweeney Primary Care Provider MD Charu Pham Attending Provider [phone] SANAZ, ELVIA Alex Primary Care Physician MD [...] ELVIA Alex Attending Unavailable SWEENEY ., DR ELIVA Alex Consulting Unavailable SWEENEY ., DR ELVIA Alex Primary Care Unavailable [place], DR EULALIA West Consulting Unavailable Renaldo SNEHAL, Asha Unavailable Melissa Erazo. Primary Care Physician Unavailable Primary Care Provider UnavailYUSRA Otero Referring Unavailable Ayesha Brink DO Unavailable Finn SENIOR GENETIC COUNSELOR, Aparna Unavailable Melissa Erazo MD Primary Care Provider Provider MD, Conversion Primary Care Provider Un available APARNA BRISENO Attending Unavailable AYESHA BRINK Attending Unavailable APARNA BRISENO Attending Unavailable NESTOR, CONOR Referring Unavailable PROVIDER, CONVERSION Primary Care Unavailable NESTOR, CONOR Attending Unavailable BRISENO APARNA Referring Unavailable PROVIDER, CONVERSION Primary Care Unavailable PROVIDER, CONVERSION Primary Care Unavailable NESTOR, COONR Referring Unavailable PROVIDER, CONVERSION Primary Care Unavailable Elvia Sweeney MD Primary Care Provider [phone] Edenilson Moyer MD Attending Provider [phone] Finn DIVISION MERCHANDISE MANAGER-[employer] HELPER-Aparna Carrillo Attending Provider Melissa Erazo MD Primary Care Provider Elvia Sweeney MD Primary Care Provider [phone] Edenilson Moyer MD Attending Provider [phone] Melissa Erazo Primary Care Unavailable Aparna Briseno Admitting Unavailable Aparna Briseno Attending Unavailable Elvia Sweeney Primary Care Unavailable Edenilson Moyer Admitting Unavailab Edenilson Caballero Attending Unavailab Melissa Payne Attending Unavailable Melissa Erazo Attending Unavailable DEYSI RO Attending Unavailable Melissa Erazo Admitting Unavailable Melissa Erazo Attending Unavailable Melissa Erazo Attending Unavailable Melissa Erazo Attending Unavailable Melissa Erazo Attending Unavailable Melissa Erazo Admitting Unavailable JIA, DIRECTOR FOUNDATION DEYSI A Admitting Unavailabl e JIA, DIRECTOR FOUNDATION DEYSI A Attending Unavailabl e JIA, DIRECTOR FOUNDATION DEYSI A Admitting Unavailabl e JIA, DIRECTOR FOUNDATION DEYSI A Attending Unavailabl e Navdeep Valiente Attending Unavailable JIA, DIRECTOR FOUNDATION DEYSI A Attending Unavailabl e JIA, DIRECTOR FOUNDATION DEYSI A Attending Unavailbabatunde e Melissa Erazo Attending Unavailable Melissa Erazo Attending Unavailable Melissa Erazo Attending Unavailable Melissa Erazo Attending Unavailable Mariana Gorman Attending Unavailable JIA, DIRECTOR FOUNDATION DEYSI A Attending Unavailabl e JIA, DIRECTOR FOUNDATION DEYSI A Attending Unavailabl e JIA, DIRECTOR FOUNDATION DEYSI A Attending UnavailADA Hall Attending Unavailable MILO, ADA Attending Unavailable MILO, ADA Attending Unavailable Allergies Allergy ClassificationReported Allergen(s)Allergy TypeDate of OnsetReaction(s) Facility (20 sources)Dexamethasone; Translations: [dexamethasone]Drug [id number] Unknown (qualifier value), GI Upset, Nausea And Vomiting, Other (See Comments) [facility]Comment on above:Reaction: vomiting, diarrhea, hair loss (20 sources)Penicillins; Translations: [Penicillins]Allergy to substance 20-91-4975Wydpi: See Comments, Unknown, OtherTri[facility] (5 sources)Penicillins (Antibiotic)Propensity to adverse reactionshiSaint [facility] Other (12 sources)Penicillin; Translations: [penicillin]Drug AllergyUnknown (qualifier value)[facility] (10 sources)predniSONE; Translations: [prednisone]Drug AllergyUnknown (qualifier value)[facility] (12 sources)Acetaminophen / HYDROcodone; Translations: [HYDROCODONE-ACETAMINOPHEN]Drug [id number] [facility] (5 sources)Lisinopril; Translations: [lisinopril]Drug Ielwaig55-09-5261XHA [facility] (6 sources)DULoxetine; Translations: [DULOXETINE]Drug Dvmdfdy62-02-0029Ydpima And VomitingAudrain Medical Center (5 sources)LisinoprilPropensity to adverse bovslgfbp61-66-3738[facility] (3 sources)Acetaminophen / HYDROcodone; Translations: [acetaminophen-hydrocodone][facility] (3 sources)Dexamethasone; Translations: [Decadron][facility]rug [facility]City [facility] Medications Current Medications MedicationDrug Class(es)DatesSig (Normalized)Sig (Original)3 ML semaglutide 1.34 MG/ML Pen Injector [Ozempic] (6 sources)Start: 33-10-9779zddxkt 1 mg by subcutaneous injection every week Ozempic (1 mg dose) 4 mg/3 mL subcutaneous solution See Instructions, INJECT 1 MG SUBCUANEOUSLY WEEKLY, # 9 mL, Refills(s) 3, [id number].5, cm, 12/27/23 14:02:00 EDT, Height/Length Dosing, 124.4, kg, 12/27/23 14:02:00 EDT, Weight Dosing Start Date: 12/27/23 Status: OrderedStart: 09-25-2023 inject 1 mg by subcutaneous injection every weekOzempic (1 mg dose) 4 mg/3 mL subcutaneous solution See Instructions, INJECT 1 MG SUBCUANEOUSLY WEEKLY, # 9 mL, Refills(s) 3, Pharmacy: [id number], 162, cm, 09/25/23 13:12:00 EDT, Height/Length Dosing, 121.7, kg, 09/25/23 13:12:00 EDT, Weight Dosing Start Date: 09/25/23 Status: Orderedacetaminophen 300 mg / codeine phosphate 30 mg oral tablet (7 sources)Opioid AgonistStart: 22-59-6396oazs 1 tablet by mouth once daily as neededacetaminophen-codeine (TYLENOL #3) 300-30 MG per tablet TAKE 1 TABLET BY MOUTH ONE TIME A DAY NEEDED. MUST LAST 30 DAYS. 11/17/2019 ActiveStart: 02-14-2018 End: 89-12-5384dhsk 1 tablet by mouth every four to six hours as needed for pain Acetaminophen-Codeine 300-30 mg tablet Discontinued 1 TAB PO EVERY 4-6 HOURS as needed for Pain February 14, 2018 12:00am April 01, 2021 11:05am acetaminophen 325 mg / HYDROcodone bitartrate 5 mg oral tablet (12 sources)Opioid AgonistStart: 87-55-8258ukry 1 tablet by mouth every four to six hours as needed for painStart: 04-14-2021 End: 23-94-5836ssum 1 tablet by mouth every four to six hours as needed for pain Hydrocodone-Acetaminophen 5-325 mg tablet Discontinued 1 - 2 TAB PO EVERY 4-6 HOURS as needed for pain 30 4 April 14, 2021 September 15, 2021 1:33pm acetaminophen 325 mg / oxyCODONE hydrochloride 5 mg oral tablet (2 sources)Opioid AgonistStart: 89-52-6779bqfEACQCG-acetaminophen (PERCOCET) 5- 325 mg per tablet Indications: Spinal stenosis, lumbar region TAKE 1 TABLET TWICE DAILY NEEDED FOR PAIN 60 tablet 0 06/23/2016 [id number] 200 actuat albuterol 0.09 mg/actuat metered dose inhaler (20 sources)beta2-Adrenergic AgonistStart: 25-54-4952yqly 2 puff(s) by mouth every four hours as neededalbuterol sulfate HFA 108 (90 Base) MCG/ACT inhaler TAKE 2 PUFFS BY MOUTH EVERY 4 HOURS NEEDED 12/29/2019 ActiveStart: 02-14-2018 albuterol (PROVENTIL) 2.5 mg /3 mL (0.083 %) nebulizer solution Albuterol Sulfate Active 1 INH Inhalation EVERY 4-6 HOURS February 14, 2018 11:07am 02/14/2018 ActiveStart: 59-86-0026ohin 1 puff(s) by inhalation every four to six hoursAlbuterol Sulfate Active 1 PUFF INHALATION EVERY 4-6 HOURS February 14, 2018 12:07pmStart: 62-42-0542Gqmvv: 49-92-5627knua 1 puff(s) by inhalation every four to six hours as neededStart: 88-47-8372nzdm 1 puff(s) by inhalation every four to six hoursAlbuterol Sulfate Active 1 PUFF INHALATION EVERY 4-6 HOURS February 14, 2018 12:00amStart: 55-75-7476ajvb 1 puff(s) by inhalation every four to six hoursAlbuterol Sulfate Active 1 PUFF INHALATION EVERY 4-6 HOURS February 13, 2018 11:00pmStart: 89-93-4408eloj 2 puff(s) by inhalation every four hours as neededVENTOLIN HFA 90 mcg/actuation inhaler Inhale 2 puffs every 4 (four) hours as needed. 11 04/13/2016 Activetake 1 puff(s) by inhalation every four hoursalbuterol HFA 90 mcg/act inhaler Inhale 1 puff every 4 (four) hours if needed Activetake 2 puff(s) by inhalation every four hours as needed Albuterol Sulfate HFA 108 (90 Base) MCG/ACT INHALE 2 PUFFS EVERY 4 HOURS NEEDED Inhalation for 17 Days ActiveComment on above:Albuterol Sulfate Active 1 INH Inhalation EVERY 4-6 HOURS February 14, 2018 11:07amAlbuterol (Eqv- Ventolin HFA) 90 mcg/inh inhalation aerosol (2 sources)Start: 51-47-3119udec 2 puff(s) by inhalation every six hours Albuterol (Eqv-Ventolin HFA) 90 mcg/inh inhalation aerosol 2 puff(s), Inhalation, q6hr Shortness ofbreath or wheezing, Refill(s) 0 Start Date: 01/07/24 Status: Orderedapixaban 5 mg oral tablet (13 sources)Factor Xa InhibitorStart: 35-78-3247yosl 1 tablet by mouth twice dailyEliquis 5 mg oral tablet 5 mg = 1 tab(s), Oral, BID, Refills(s) 0 Start Date: 10/30/23 Status: Orderedtake 1 tablet by mouth in the morningapixaban (Eliquis) 2.5 MG tablet Take 2.5 mg by mouth in the morning and 2.5 mg before bedtime. Activeatorvastatin 40 mg oral tablet (11 sources)HMG-CoA Reductase InhibitorStart: 65-98-0668sogx 1 tablet by mouth at bedtimeatorvastatin (Lipitor) 40 MG tablet Take 40 mg by mouth at bedtime 02/16/2023 Activebetamethasone 0.5 mg/ml / clotrimazole 10 mg/ml topical cream (1 source)Azole Antifungal, CorticosteroidStart: 56-80-4461qunyhatfcock- betamethasone (LOTRISONE) 1-0.05 % cream Indications: Vulvar itching Apply topically 2times daily as needed for vulvar itching, not to exceed 6 weeks of continuous usage 45 g 1 03/07/2024 Uevkxn04 actuat budesonide 0.16 mg/actuat / formoterol fumarate 0.0045 mg/actuat metered dose inhaler (12 sources)Corticosteroid, beta2-Adrenergic AgonistStart: 54-11-2279gmol 2 puff(s) by inhalation twice dailySYMBICORT 160-4.5 mcg/actuation inhaler Inhale 2 Puffs as instructed twice daily. 11/26/2020 ActiveStart: 28-71-3395ymyi 2 puff(s) by mouth twice dailySYMBICORT 160-4.5 MCG/ACT AERO TAKE TWO PUFFS BY MOUTH TWICE DAILY 12/25/2019 ActiveStart: 02-14-2018 End: 46-15-1337zmmv 1 puff(s) by inhalation every four to six hoursBudesonide- Formoterol (Symbicort) 160-4.5 mcg/actuation HFA aerosol inhaler Discontinued 1 PUFF INHALATION EVERY 4-6 HOURS February 14, 2018 12:07pm April 01, 2021 11:05amStart: 02-14-2018 End: 87-86-3769dqbf 1 puff(s) by inhalation every four to six hours as needed Budesonide-Formoterol (Symbicort) 160-4.5 mcg/actuation HFA aerosol inhaler Discontinued 1 PUFF INHALATION EVERY 4-6 HOURS as needed for Shortness Of Breath February 14, 2018 12:00am March 11:05amStart: 02-14-2018 End: 39-50-4512ipmw 1 puff(s) by inhalation every four to six hoursBudesonide- Formoterol (Symbicort) 160-4.5 mcg/actuation HFA aerosol inhaler Discontinued 1 PUFF INHALATION EVERY 4-6 HOURS February 14, 2018 12:00am April 01, 2021 11:05amStart: 02-14-2018 End: 69-38-4160yruj 1 puff(s) by inhalation every four to six hoursBudesonide- Formoterol (Symbicort) 160-4.5 mcg/actuation HFA aerosol inhaler Discontinued 1 PUFF INHALATION EVERY 4-6 HOURS February 13, 2018 11:00pm April 01, 2021 10:05ambudesonide-formoteroL (SYMBICORT) 160-4.5 mcg/actuation inhaler Active take 2 puff(s) by mouth twice dailySymbicort 160-4.5 MCG/ACT INHALE 2 PUFFS BY MOUTH TWICE A DAY Inhalation for 30 Days ActiveComment on above:Inhale 2 Puffs as instructed twice daily.carvedilol 25 mg oral tablet (11 sources)alpha-Adrenergic Pranay, beta-Adrenergic BlockerStart: 12-14-2023 take 1 tablet by mouth at dinnercarvedilol (COREG) 25 MG tablet TAKE 1 TABLET BY MOUTH WITH BREAKFAST AND EVENING MEAL 12/14/2023 ActiveStart: 46-36-9952mbzy 1 tablet by mouth in the morningcarvedilol (Coreg) 12.5 MG tablet Take 12.5 mg by mouth in the morning and 12.5 mg in the evening. Take with meals. 12/20/2022 Activecephalexin 500 mg oral capsule (12 sources)Cephalosporin AntibacterialStart: 09-15-2021 End: 21-87-3084jxhb 1 capsule by mouth three times dailyStart: 09-15-2021 End: 81-63-1347Rpnxvoseum Discontinued MG September 15, 2021 12:00am September 15, 2021 2:19pmcholecalciferol 0.125 mg oral capsule (17 sources)Vitamin DStart: 67-02-6245zeyz 1 capsule by mouth once daily cholecalciferol, vitamin D3, (VITAMIN D3) 5,000 units capsule Take 1 tablet by mouth. Activedicyclomine hydrochloride 20 mg oral tablet (2 sources)AnticholinergicStart: 19-87-6655mhcz 1 tablet by mouth every six hours as needed for paindicyclomine (BENTYL) 20 mg tablet TAKE 1 TABLET BY MOUTH EVERY 6 HOURS NEEDED FOR ABDOMINAL PAIN10/17/2020 ActiveComment on above: TAKE 1 TABLET BY MOUTH EVERY 6 HOURS NEEDED FOR ABDOMINAL PAINdoxepin hydrochloride 10 mg oral capsule (1 source)Tricyclic Antidepressantdoxepin (SINEquan) 10 mg capsule Take 1 capsule (10 mg total) by mouth. Activedoxycycline hyclate 100 mg oral tablet (17 sources)Tetracycline-class DrugStart: 91-51-8163byak 1 tablet by mouth twice dailyStart: 04-14-2021 End: 05-51-3483vkmf 1 tablet by mouth twice dailyDoxycycline Hyclate 100 mg tablet Discontinued 100 MG PO Twice daily 03 08April 14, 2021 1:00am September 15, 2021 1:31pmStart: 02-14-2018 End: 98-76-7667wgzw 1 capsule by mouth twice dailyDoxycycline Hyclate 100 mg capsule Discontinued 100 MG PO Twice daily 23 03February 14, 2018 12:00am February 23, 2018 12:00am February 24, 2018 12:02amDULoxetine 30 mg delayed release oral capsule (20 sources)Serotonin and Norepinephrine Reuptake InhibitorStart: 04-01-2021 End: 35-27-7572rjql 2 capsules by mouth once daily at bedtimeStart: 04-01-2021 take 60 mg by mouth once daily at bedtimeDuloxetine Active 60 MG PO Daily at bedtime April 01, 2021 12:00am End: 10-85-0588VPGogbpqfa (CYMBALTA) 60 mg capsule Take 1 tablet by mouth. Activetake 1 capsule by mouth every twenty-four hoursDULoxetine HCl 30 MG 1 capsule Orally Once a day Activeduloxetine 30 mg Cap-DR (1 source)Start: 04-24-8739kkah 1 capsule by mouth once dailyduloxetine 30 mg Cap-DR 30 mg, Oral, Daily, Refills(s) 0 Start Date: 09/01/22 Status: Ordered famotidine 20 mg oral tablet (20 sources)Histamine-2 Receptor AntagonistStart: 33-38-7388snlj 1 tablet by mouth once dailyStart: 05-16-2016 End: 71-15-0049nxmt 1 tablet by mouth once dailyFamotidine 40 mg tablet Discontinued 40 MG PO Daily February 14, 2018 12:00am April 01, 2021 11:02amStart: 20-75-9921xfxhdomspl (PEPCID) 40 mg tablet Famotidine Active 40 MG Oral Daily February 14, 2018 11:07am 05/16/2016 ActiveComment on above: Famotidine Active 40 MG Oral Daily February 14, 2018 11:07amflecainide acetate 100 mg oral tablet (7 sources)AntiarrhythmicStart: 36-95-5799xqxu 1 tablet by mouth every twelve hoursflecainide 100 mg Tab 100 mg = 1 tab(s), Oral, q12hr, Refills(s) 0 Start Date: 04/17/24 Status: Orderedgabapentin 100 mg oral capsule (19 sources)Anti-epileptic AgentStart: 11-26-2020 End: 88-02-3639wyix 1 capsule by mouth three times dailyComment on above:Take 100 mg by mouth three times daily.hydroCHLOROthiazide 25 mg oral tablet (3 sources)Thiazide DiureticStart: 55-82-7462cnpb 1 tablet by mouth once daily hydrochlorothiazide 25 mg Tab 25 mg = 1 tab(s), Oral, Daily, # 90 tab(s), Refills(s) 0, Pharmacy: [id number], 162, cm, 09/25/23 13:12:00 EDT, Height/Length Dosing, 121.7, kg, 09/25/23 13:12:00 EDT, Weight Dosing Start Date: 09/25/23 Status: OrderedhydroCHLOROthiazide 12.5 mg / lisinopril 20 mg oral tablet (3 sources)Thiazide Diuretic, Angiotensin Converting Enzyme Inhibitortake 1 tablet by mouth every twenty-four hoursLisinopril-hydroCHLOROthiazide 20-12.5 MG 1 tablet Orally Once a day Activetake 1 tablet by mouth every twenty-four hours ipratropium bromide 0.2 mg/ml inhalation solution (1 source)Anticholinergicipratropium (ATROVENT) 0.02 % nebulizer solution 3 (three) times a day. Activelosartan potassium 100 mg oral tablet (20 sources)Angiotensin 2 Receptor BlockerStart: 56-78-3594yemc 1 tablet by mouth once dailylosartan 100 mg Tab 100 mg = 1 tab(s), Oral, Daily, # 90 tab(s), Refills(s) 0, Pharmacy: [id number], 162, cm, 09/25/23 13:12:00 EDT, Height/Length Dosing, 121.7, kg, 09/25/23 13:12:00 EDT, Weight Dosing Start Date: 09/25/23 Status: OrderedStart: 56-99-7077xxra 1 tablet by mouth once daily take 1 tablet by mouth once dailylosartan (Cozaar) 50 MG tablet Take 1 tablet by mouth Daily ActiveLosartan Potassium Activemeloxicam 15 mg oral tablet (6 sources)Nonsteroidal Anti-inflammatory DrugStart: 12-18-2024 End: 42-53-1060tylx 1 tablet by mouth once dailyStart: 10-09-2024 End: 69-85-7462omhs 1 tablet by mouth once dailymeloxicam (Mobic) 15 MG tablet Indications: Lumbar spondylosis Take 1 tablet (15 mg) by mouth Daily30 tablet 1 10/09/2024 12/08/2024 ActiveStart: 08-19-2024 End: 53-40-6725ygih 1 tablet by mouth once dailymeloxicam (Mobic) 7.5 MG tablet Indications: Lumbar spondylosis Take 1 tablet (7.5 mg) by mouth Daily 30 tablet 1 08/19/2024 10/09/2024 Discontinued (Dose adjustment)metFORMIN hydrochloride 500 mg oral tablet (20 sources)BiguanideStart: 48-20-0651wpkp 1 tablet by mouth once dailyComment on above:Metformin Active 500 MG Oral Daily February 14, 2018 11:07am metoclopramide 10 mg oral tablet (3 sources)Dopamine-2 Receptor AntagonistStart: 10-03-5253unjc 1 tablet by mouth every six hours as needed for nausea and vomitingmetoclopramide (REGLAN) 10 MG tablet TAKE 1 TABLET ORALLY EVERY 6 HOURS NEEDED FOR NAUSEA AND VOMITING FOR 3 DAYS 02/19/2024 ActiveComment on above:Take 10 mg by mouth every 6 hours as needed.minocycline 100 mg oral capsule (2 sources)Tetracycline-class Drugtake 1 capsule by mouth once daily at mealtime minocycline (MINOCIN,DYNACIN) 100 mg capsule TAKE 1 CAPSULE BY MOUTH EVERY DAY WITH FOOD Activetake 1 capsule by mouth every twelve hoursMinocycline HCl 100 MG 1 capsule Orally every 12 hrs Activemontelukast 10 mg oral tablet (17 sources)Leukotriene Receptor AntagonistStart: 05-96-8035xwsb 1 tablet by mouth once dailymontelukast (SINGULAIR) 10 mg tablet Take 10 mg by mouth once daily. 11/26/2020 ActiveComment on above:Take 10 mg by mouth once daily. nebivolol 10 mg oral tablet (1 source)Start: 75-27-8575uwwt 1 tablet by mouth twice dailynebivolol 10 mg Tab 10 mg = 1 tab(s), Oral, BID, Refills(s) 0 Start Date: 02/19/24 Status: Ordered Nurtec (3 sources)Nurtec ActiveNurtec Not-Takingnystatin 100 unt/mg topical powder (3 sources)Polyene AntifungalStart: 63-00-4833vkqdrqwh (MYCOSTATIN) 388754 UNIT/GM powder Indications: Intertrigo Apply topically 3 times daily as needed for skin rash 30 g 5 03/07/2024 ActiveStart: 21-52-0593adzdpnhg (MYCOSTATIN) powder APPLY TO AFFECTED AREA 4 TIMES A DAY NEEDED 12/29/2019 ActiveComment on above:APPLY TO AFFECTED AREA 4 TIMES A DAY NEEDEDomeprazole 40 mg delayed release oral capsule (20 sources)Proton Pump InhibitorStart: 96-76-4256ncmm 1 capsule by mouth once daily in the morningomeprazole (PriLOSEC) 40 mg capsule TAKE 1 CAPSULE BY MOUTH EVERY MORNING 30 TO 60 MINUTES PRIOR TOBREAKFAST 06/26/2024 ActiveStart: 47-93-5955hicfscetvd 20 mg Cap-DR 20 mg = 1 cap(s), Oral, Daily, Refills(s) 0, Control of stomach acid Start Date: 09/01/22 Status: OrderedStart: 04-01-2021 End: 58-65-9991okxm 1 capsule by mouth once daily in the morningOmeprazole 20 mg capsule,delayed release(DR/EC) Discontinued 20 MG PO Every morning April 01, 2021 12:00am September 15, 2021 1:43pmondansetron 4 mg disintegrating oral tablet (1 source)Serotonin-3 Receptor AntagonistStart: 38-85-4536vzzvpfiuxfq (ZOFRAN- ODT) 4 MG disintegrating tablet DISSOLVE 1 TABLET UNDER THE TONGUE EVERY 4 HOURS NEEDED FOR NAUSEA/VOMITING FOR 3 DAYS 02/19/2024 ActiveOzempic (3 sources)Ozempic ActiveOZEMPIC, 1 MG/DOSE, 4 MG/3ML SOPN sc injection (1 source)Start: 82-86-9681MBHDXDR, 1 MG/DOSE, 4 MG/3ML SOPN sc injection 02/22/2024 ActivePARoxetine hydrochloride 20 mg oral tablet (2 sources)Serotonin Reuptake InhibitorStart: 00-54-7008ypya 1 tablet by mouth once dailyPARoxetine (PAXIL) 20 MG tablet Indications: Menopausal syndrome (hot flashes) Take 1 tablet by mouth daily 30 tablet 5 03/07/2024 Activepolyethylene glycol 3350 17866 mg powder for oral solution (12 sources)Osmotic LaxativeStart: 31-97-0271aaty 17 g by mouth once daily polyethylene glycol 3350 Oral Pwdr for Recon 17 gm, Oral, Daily, Refills(s) 0 Start Date: 09/01/22 Status: Orderedrimegepant 75 mg disintegrating oral tablet (20 sources)Start: 51-11-8045wwse 1 tablet under the tongue onceNurtec ODT 75 mg oral tablet, disintegrating 75 mg = 1 tab(s), SubLingual, Once, at onset of migraine, Refills(s) 0, Migraine headache Start Date: 09/25/22 Status: Ordered Start: 09-15-2021 End: .25 mg, 0.5 mg dose 1.5 ml semaglutide 1.34 mg/ml pen injector (11 sources)Start: 98-18-5590sdqpgobbcwo (OZEMPIC) 0.25 mg or 0.5 mg(2 mg/1.5 mL) pen injector INJECT 0.25MG SUBCUTANEOUSLY EVERY WEEK 12/14/2023 ActiveStart: 62-06-7969vfssta 1 mg by subcutaneous injection every weekOzempic 2 mg/1.5 mL (1 mg dose) subcutaneous solution 1 mg, SubCutaneous, qWeek, 6 EA, Refill(s) 0, [id number], 162, cm, 09/25/22 11:02:00 EDT, Height/Length Dosing, 138.5, kg, 09/25/22 11:02:00 EDT, Weight Dosing Start Date: 09/25/22 Status: Ordered Semaglutide (2 sources)Start: 96-84-0163Zxtuk: 12-45-0610Fkpcldwdbdn (Ozempic) 1 mg/dose (4 mg/3 mL) pen injector Active MG SUBCUT December 18, 2024 12:00am Complies with drug therapysertraline 25 mg oral tablet (3 sources)Serotonin Reuptake InhibitorStart: 78-88-7571tvwn 1 tablet by mouth once daily in the morningsertraline (ZOLOFT) 25 mg tablet TAKE 1 TABLET BY MOUTH EVERY DAY IN THE MORNING 12/26/2019 ActiveComment on above:TAKE 1 TABLET BY MOUTH EVERY DAY IN THE MORNINGSUMAtriptan 100 mg oral tablet (10 sources)Serotonin-1b and Serotonin-1d Receptor AgonistStart: 10-04-2020 SUMAtriptan ActiveComment on above:TAKE 1 TAB AT ONSET OF MIGRAINE,MAY REPEAT IN 2 HRS MAX 2 TABS/DAY, 2 TIMES A WEEKtopiramate 50 mg oral tablet (20 sources)Start: 04-01-2021 End: 28-50-2167emtt 1 tablet by mouth twice dailyStart: 81-29-2901mbof 1 tablet by mouth twice dailytopiramate (TOPAMAX) 25 mg tablet Take 25 mg by mouth twice daily. 12/01/2020 Activetake 1 tablet by mouth every twenty-four hoursTopamax 50 MG 1 tablet Orally Once a day ActiveComment on above:Take 25 mg by mouth twice daily.verapamil hydrochloride 180 mg extended release oral tablet (15 sources)Calcium Channel BlockerStart: 12-20-2022 End: 57-65-5030jyyw 1 tablet by mouth once dailyverapamil SR (Calan SR) 180 MG ER tablet Take 1 tablet by mouth Daily 12/20/2022 04/07/2024 Discontinued (Therapy completed)Start: 04-01-2021 End: 41-32-6216Xeonhpsbh 120 mg tablet extended release Discontinued 120 MG PO 1700 April 01, 2021 12:00am September 15, 2021 2:19pmtake 1 tablet by mouth every eight hoursVerapamil HCl 120 MG 1 tablet Orally Three times a day Not-TakingVitamin D3 (1 source)Vitamin D3 Active Completed/Discontinued Medications MedicationDrug Class(es)DatesSig (Normalized)Sig (Original)benzonatate 100 mg oral capsule (6 sources)Non-narcotic AntitussiveStart: 02-14-2018 End: 52-71-9680brto 1 capsule by mouth three times daily as needed for cough Benzonatate (Tessalon Perles) 100 mg capsule Discontinued 100 MG PO Three times daily as needed forcough 20 February 14, 2018 12:57pm February 18, 2018 12:00am February 19, 2018 12:01amtriamcinolone acetonide 40 mg/ml injectable suspension (2 sources)CorticosteroidStart: 26-65-9812Pdvilwm-40 October, 20 mg Problems Active Problems Problem ClassificationProblemDateDocumented DateEpisodic/ChronicAbdominal hernia (4 sources)Diaphragmatic hernia; Translations: [Diaphragmatic hernia without obstruction or gangrene]Onset: 01-47-3015ShszmemoSbkyvx (15 sources)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; Translations: [Asthma]Onset: [id number] dysrhythmias (5 sources)Atrial fibrillation; Translations: [Atrial Fibrillation]Onset: [id number] dysrhythmias (2 sources)Palpitations; Translations: [Palpitations]Onset: 93-06-6212Vfezpdwu Diabetes mellitus with complications (1 source)Type 2 diabetes mellitus with unspecified complications; Translations: [TYPE 2 DM W/UNS COMPLICATIONS]Onset: 08-97-8984GswemggVgwjisyi mellitus without complication (12 sources)Type 2 diabetes mellitus; Translations: [Type 2 diabetes mellitus without complication]17-48-0237NlhjeupIgtlelove of lipid metabolism (4 sources)Pure hypercholesterolemia, unspecified; Translations: [Hyperlipidemia]Onset: 008362-56-1473AqmmaabNwqaijliqa disorders (8 sources)Gastroesophageal reflux disease without esophagitis; Translations: [Gastro-esophageal reflux disease without esophagitis]Onset: 99-93-1273Qswvqkj Essential hypertension (19 sources)Hypertensive disorder; Translations: [Essential hypertension]Onset: 505688-04-0218UhazhovAzzsoahy; including migraine (20 sources)Migraine without aura, not refractory ; Translations: [Migraine without aura, not intractable, without status migrainosus]Onset: 10-25-2023 21-40-6497LldzdzkQddqqqdz; including migraine (7 sources)Tdhriwwo10-98-2093KefalivwKqsetxixckw (7 sources)Praptfpxbep01-41-4281MparqxmvDjasl disorders and dislocations; trauma-related (7 sources)Derangement of lrnh58-20-5309CrohaxjUvbnalg and fatigue (2 sources)Fatigue; Translations: [Fatigue]Onset: 66-98-8719AwunugoqDjscayehxab deficiencies (8 sources)Deficiency of vitamin D3; Translations: [Vitamin D deficiency, unspecified]Onset: 403202-11-1539NitwjiwTpvhtqzdgzdqqz (8 sources)Osteoarthritis; Translations: [Osteoarthritis of left knee joint] Onset: 337826-84-2275AamctdwGgbeygh on above:idiopathicOther and unspecified benign neoplasm (5 sources)Polyp of colon; Translations: [Polyp of colon]Onset: 11-09-2023 EpisodicOther circulatory disease (14 sources)Raynaud's mgqmbeuiwh62-84-4650SeyatbrNsrhvky on above:isolated, primaryOther circulatory disease (2 sources)Wheeze - hubsqsx29-40-7008BcmgpxlfXvysf connective tissue disease (7 sources)Thumb joint painful on uxfhpxjv75-37-5868UijtasomDepod connective tissue disease (2 sources)Pain in right handEpisodicOther connective tissue disease (2 sources)Trigger thumb, right thumbEpisodicOther connective tissue disease (1 source)Disorder of muscle; Translations: [Other specified disorders of muscle]Onset: 01-27-3127HzraakqsOqrdr connective tissue disease (5 sources)Pelvic floor pvpzrtacqfe44-89-7902VnurbgbiHrqyu gastrointestinal disorders (2 sources)Constipation by outlet obstruction; Translations: [Outlet dysfunction constipation]Onset: 45-10-1600GcpfaqyxSjdwm gastrointestinal disorders (5 sources)Wcorkxrwdscz46-37-8940UxrsdityVijfp gastrointestinal disorders (1 source)Constipation, unspecified; Translations: [Constipation, unspecified] Onset: 27-91-8344AovfhuahOhbdv hematologic conditions (1 source)Qgddormxcxljhb49-05-0737OggllkceNsese inflammatory condition of skin (7 sources)Lemqudyeu72-62-6709NplpdzvFbwzl inflammatory condition of skin (1 source)Pruritus of vulva; Translations: [Pruritus vulvae]23-28-0273Odkqcykd Other inflammatory condition of skin (1 source)Pruritus vulvae; Translations: [Pruritus vulvae]Onset: 03-07-2024 EpisodicOther liver diseases (7 sources)Steatosis of -99-5512IsyuvevDbkiy liver diseases (1 source)Fatty (change of) liver, not elsewhere classified; Translations: [FATTY CHANGE LIVER NEC]Onset: 30-58-9355CqyzorhGvnzy lower respiratory disease (1 source)Apnea; Translations: [Apnea, not elsewhere classified]Onset: 01-56-7348EuhodjqbUqpfw lower respiratory disease (2 sources)Shortness of breath; Translations: [Shortness of Breath]Onset: 26-49-1512MoeyjnhxXsuqz nervous system disorders (6 sources)Carpal tunnel syndrome; Translations: [Carpal tunnel syndrome, unspecified upper limb]26-42-2310GcltryuGuuuc nervous system disorders (6 sources)Ulnar nerve entrapment at elbow; Translations: [Lesion of ulnar nerve, unspecified upper limb]79-27-4446OdbfbbcValwe nervous system disorders (12 sources)Lesion of ulnar nerve, left upper limb; Translations: [Cubital tunnel syndrome on left]Onset: 03-23-2021 Resolved: 03-54-3465UtntuukLpixz nervous system disorders (16 sources)Carpal tunnel syndrome of left wrist; Translations: [Carpal tunnel syndrome, left upper limb]Onset: 080505-33-2608MsvryfsLorjr nervous system disorders (5 sources)Carpal tunnel syndrome, left upper limb; Translations: [Left carpal tunnel syndrome G56.02]Onset: 03-23-2021 Resolved: 27-98-8789BqpalwbWzdah nervous system disorders (12 sources)Carpal tunnel syndrome of right wrist; Translations: [Carpal tunnel syndrome, right upper limb]Onset: 107790-32-3380ApddrhfYjvzq nervous system disorders (1 source)Carpal tunnel syndrome, right upper limbChronicOther nervous system disorders (16 sources)Ulnar neuropathy; Translations: [Lesion of ulnar nerve, unspecified upper limb]Onset: 372631-03-1510KzxehixZnztseq on above:left armOther nervous system disorders (10 sources)Chronic pain syndrome; Translations: [Chronic pain syndrome]Onset: 903935-79-9892TehjyniPvufg nervous system disorders (17 sources)Ulnar neuropathy of left arm; Translations: [Lesion of ulnar nerve, left upper limb]Onset: 665251-06-1273DrgffktNmorp nervous system disorders (13 sources)Bilateral carpal tunnel syndrome; Translations: [Carpal tunnel syndrome, bilateral upper limbs]Onset: 105244-89-5078KuzauhqEpsqv nervous system disorders (2 sources)Thoracic dnavfmmpwy29-37-6212UkunijhGhhfy nervous system disorders (6 sources)Pain in limb; Translations: [Other acute postprocedural pain] 91-34-0554XvgehpbtYtmjh nervous system disorders (2 sources)Anesthesia of skinOnset: 07-29-2021 Resolved: 74-19-5672HrbzqnojQuxwv nervous system disorders (1 source)Paresthesia of skin; Translations: [Paresthesia of skin]Onset: 16-82-9876NokzjugiInsjh non-traumatic joint disorders (4 sources)Pain in unspecified hip; Translations: [PAIN IN UNSPECIFIED HIP] Onset: 18-02-7987GhrilfdzLuzir nutritional; endocrine; and metabolic disorders (8 sources)Metabolic syndrome X; Translations: [Metabolic syndrome]Onset: 029516-38-4666YzcgpirFqpex nutritional; endocrine; and metabolic disorders (8 sources)Morbid obesity; Translations: [Morbid (severe) obesity due to excess calories]Onset: 489757-81-7823YcryqknAkftt nutritional; endocrine; and metabolic disorders (1 source)Metabolic syndrome; Translations: [METABOLIC SYNDROME]Onset: 79-21-2997DbndvqlQuoyd nutritional; endocrine; and metabolic disorders (9 sources)Body mass index 40+ - severely obese; Translations: [Morbid (severe) obesity due to excess calories]Onset: 028800-62-0868ThbzdvpElwum nutritional; endocrine; and metabolic disorders (10 sources)Obesity; Translations: [Other obesity due to excess calories]Onset: 73-75-0760JwhkjcyUxono nutritional; endocrine; and metabolic disorders (3 sources)Obesity caused by energy yaoiiphde23-95-1083JvjshnoVtedt screening for suspected conditions (not mental disorders or infectious disease) (17 sources)Encounter for screening mammogram for malignant neoplasm of breast; Translations: [Encounter for screening for malignant neoplasm of cervix]Onset: 87-60-2573OirskxxdEcmkzhuklgah fracture (1 source)Pathological fracture; Translations: [Pathological fracture, other site, initial encounter for fracture]37-29-0218AwjqwirdMevaukgk codes; unclassified (4 sources)Obstructive sleep apnea (adult) (pediatric); Translations: [OBSTRUCTIVE SLEEP APNEA]Onset: 95-68-0766AankwcdBzajeopk codes; unclassified (1 source)Idiopathic hypersomnia with long sleep time; Translations: [IDIO HYPERSOMNIA W/LONG SLEEP TIME]Onset: 80-59-5525IdmfpgkNpjfbxhx codes; unclassified (9 sources)Obstructive sleep apnea syndrome; Translations: [Obstructive sleep apnea (adult) (pediatric)]Onset: 896486-93-4864SscovujWndfiqsz codes; unclassified (9 sources)Hypersomnia; Translations: [Hypersomnia, unspecified]Onset: 046447-79-2250KrkmtxaWpyqjwkf codes; unclassified (4 sources)Other specified postprocedural statesOnset: 05-20-2021 Resolved: 57-80-5556MckahmduGtlkfkok codes; unclassified (2 sources)Acquired absence of organ; Translations: [Acquired absence of other specified parts of digestive tract]Onset: 74-68-5045XvvdswxeCaltsuel codes; unclassified (2 sources)Pelvic organ finding; Translations: [Acquired absence of both cervix and uterus]Onset: 00-79-5722GacimoqgBbvbdgba codes; unclassified (1 source)Patient encounter status; Translations: [Other specified personal risk factors, not elsewhere classified]58-30-3271AwnyxmocPnutbgkf codes; unclassified (1 source)Other specified personal risk factors, not elsewhere classified; Translations: [Other specified personal risk factors, not elsewhere classified] Onset: 20-28-2905PbjjpatyUpurbemt codes; unclassified (1 source)Pain, unspecified; Translations: [Pain, unspecified]Onset: 08-22-2024 EpisodicResidual codes; unclassified (2 sources)Confusional state; Translations: [Disorientation, unspecified] 72-48-5359PzohtpzgGkvqfsfefdw; intervertebral disc disorders; other back problems (20 sources)Arthropathy of lumbar facet joint; Translations: [Spondylosis without myelopathy or radiculopathy, lumbar region]Onset: ChronicSpondylosis; intervertebral disc disorders; other back problems (19 sources)Sciatica; Translations: [Low back pain]Onset: EpisodicSubstance-related disorders (11 sources)Smoker; Translations: [Nicotine dependence, cigarettes, with unspecified nicotine-induced disorders]Onset: hronic Unclassified (2 sources)COUGH, UNSPECIFIED; Translations: [COUGH, UNSPECIFIED]Onset: 56-36-7726Thsibchnegyg (1 source)CONTACT W/AND (SUSP) EXPOS COVID-19; Translations: [CONTACT W/AND (SUSP) EXPOS COVID-19]Onset: 29-97-8707Gdbdzspdrcnc (6 sources)Patient encounter iceoxd39-25-0392Lmivxjtsvvib (1 source)Low back pain, unspecified; Translations: [Low back pain, unspecified] Onset: 86-12-1736Nfxrqgjziqcr (1 source)Supraventricular tachycardia, unspecified; Translations: [Supraventricular tachycardia, unspecified]Onset: 09-23-2024 Past or Other Problems Problem ClassificationProblemDateDocumented DateEpisodic/ChronicOther connective tissue disease (1 source)Pain in right foot; Translations: [Pain in right foot]Onset: 266197-95-7087JroaohnuTzsyl nervous system disorders (9 sources)Paresthesia; Translations: [Paresthesia of skin]Onset: 10-25-2023 40-84-9688RpvekqmeIualu upper respiratory infections (1 source)Acute upper respiratory infection, unspecified; Translations: [ACUTE UP RESPIRATORY INFECTION UNS]Onset: 76-54-2691LgixhmvuQsoiwizl codes; unclassified (9 sources)Insomnia; Translations: [Insomnia, unspecified]Onset: 10-25-2023 49-54-4057FovyhruoYhxngbvefsnp (1 source)COUGH, UNSPECIFIED; Translations: [COUGH, UNSPECIFIED]Onset: 44-12-3532Jefdodmmyvie (1 source)Supraventricular tachycardia, unspecified; Translations: [Supraventricular tachycardia, unspecified]Onset: 09-23-2024 Results Test NameValueInterpretationReference RangeFacilityAmbulatory Visit Summaryon 65-15-8928Tkshrkqcfa Visit SummaryAmbulatory Visit Summary JOVANA XIE :1970 Visit Date:04/06/2025 Ambulatory Visit Instructions Your Diagnosis Diabetic neuropathy These Are Your Goals Reduce Fall Risk - Not met Interventions: Learn About Home Safety to Prevent Falls or Injury - Progressing Review educational material - Not done Reduce [...] report any abnormal findings to provider - Progressing Consult with field handyman - Not done Review educational material - [...] pickles, chips, olives, or adding extra salt -Progressing Decrease back pain and maintain/ improve mobility - Not met Interventions: Partake in low impact activity 2-3 days per week (as tolerated) such as: swim, yoga, walk... - Not done Use heating pad or icepack as needed for soothing comfort - Progressing complete daily stretching exercises - Not done Trend weight down to improve overall health - Not met Interventions: Consult with field handyman - Not done eat a well balanced diet rich in protein and avoid foods high in saturated fat - Not done increase low impact exercise as tolerated - Not done Your Care Team Attending Physician - DEYSI RO CNP Primary Care Physician - DEYSI RO CNP This Is Your Medications List Misc Prescription (Glucometer) Misc Prescription (Lancets) Misc Prescription (Test strips) albuterol (Albuterol (Eqv-Ventolin HFA) 90 mcg/inh inhalation aerosol) apixaban (Eliquis 5 mg oral tablet) atorvastatin (atorvastatin 40 mg Tab) flecainide (flecainide 100 mg Tab) meloxicam metformin (metformin 500 mg Tab) omeprazole (omeprazole 40 mg Cap-DR) pregabalin (Lyrica 50 mg Cap) rimegepant (Nurtec ODT 75 mg oral tablet, disintegrating) semaglutide (Ozempic (1 mg dose) 4 mg/3 mL subcutaneous solution) Procedures Performed Colonoscopy (10/22/2023), Esophagogastroduodenoscopy (10/22/2023), Cardiac catheter (2005), MANDI BSO- Total abdominal hysterectomy and bilateral salpingo- oophorectomy (01/15/2004), Arthroscopy, History of lumbar spine surgery, Tonsillectomy and adenoidectomy. Discharge Vitals Temperature (Temporal Artery) 36.5 ???C Heart Rate (Peripheral) 88 Respiratory Rate 18 Blood Pressure 140/78 Height 162 cm Height 64 in Weight 124.5 kg Weight 274.475 lb BMI 47.44 What to do next Scheduled Follow-Up Appointments Sunday2025 1:00 PM EST With: Mariana Gorman DO Where: [address] [id number] Sunday2025 8:00 AM EDT With: Where: [address] [phone]- You Need to Schedule the Following Appointments Follow Up with Mariana Gorman When: Within 3 months Comments: Diabetes Where: [address] [place] [phone] Business (1) Medications What How Much When Why Instructions Unchanged albuterol (Albuterol (Eqv-Ventolin HFA) 90 mcg/ inh inhalation aerosol) 2 Puffs Inhalation Every 6 hours as needed for Shortness of breath or wheezing Unchanged apixaban (Eliquis 5 mg oral tablet) 1 Tablets By Mouth 2 times a day Unchanged atorvastatin (atorvastatin 40 mg Tab) See instructions TAKE 1 TABLET BY MOUTH EVERY DAY Unchanged flecainide (flecainide 100 mg Tab) 1 Tablets By Mouth Every 12 hours Unchanged meloxicam 7.5 Milligram By Mouth Every day Unchanged metformin (metformin 500 mg Tab) See instructions TAKE 1 TABLET BY MOUTH EVERY DAY Unchanged Misc Prescription (Glucometer) See instructions Neuropathy Controlled type 2 diabetes mellitus without complication, without long-term current use of insulin BMI 45.0-49.9, adult Smoker Glucometer to test blood sugar TID PRN E11.9 Unchanged Misc Prescription (Lancets) See instructions Neuropathy Controlled type 2 diabetes mellitus without complication, without long-term current use of insulin BMI 45.0-49.9, adult Smoker Test blood sugar TID PRN E11.9 Unchanged Misc Prescription (Test strips) See instructions Controlled (more content not included)...[facility] Medicine Office/Clinic Noteon 49-55-1077Pcxdvd Medicine Office/Clinic NoteFafrancisc[facility]/Clinic Note Chief Complaint The patient presents for a medication refill for her neuropathy. The patient presents for a medication refill for her neuropathy. HPI Staff Patient presents for 4 week follow up neuropathy On Lyrica Medication agreement: 03/09/25 Urine Drug Screen: 03/09/25 pt states she loves lyrica, works great, she can do more things and is sleeping History of Present Illness 55 year old female presenting for a medication refill and follow-up. The patient was started on Lyrica at her last visit for neuropathy. She reports the medication has been a game changer and her symptoms of numbness and tingling are significantly reduced. The patient is scheduled for a heart ablation soon. She has a history of diabetes and owns a glucometer but is unsure how to use it. She is encouraged to schedule a nurse visit for assistance in learning how to use the glucometer. Review of Systems PHQ Score Initial Depression Screen Score: 0 SCORE - Neurologic: Reports significant decrease in numbness and tingling. Physical Exam Vitals & Measurements T: 36.5 ???C(Temporal Artery) HR: 88(Peripheral) RR: 18 BP: 140/78 HT: 64 in HT: 162 cm WT: 274.475 lb WT: 124.5 kg BMI: 47.44 General: alert, no acute distress Cardiovascular: regular rate and rhythm, normal peripheral perfusion Respiratory: Lungs CTA, respirations non labored Extremities: no deformity, no trauma Neurological: oriented x 4, LOC appropriate for age speech normal Assessment/Plan 1. Diabetic neuropathy (E11.40: Type 2 diabetes mellitus with diabetic neuropathy, unspecified) - The patient reports significant improvement in symptoms of numbness and tingling with Lyrica, stating she loves it. - A prescription refill for Lyrica will be provided. - [place]AR[place] reviewed and found to be appropriate - F/U in 3 months Orders: pregabalin, 50 mg = 1 cap(s), Oral, TID, # 90 cap(s), Refills(s) 2, Pharmacy: [facility]/pharmacy #[id number], 162, cm, 04/06/25 13:31:00 EST, Height/Length Dosing, 124.5, kg, 04/06/25 13:31:00 EST, Weight Dosing Follow-up With When Contact Information Mariana Gorman Within 3 months [address] [place] [address]- [phone] Business (1) Additional Instructions: Diabetes Patient Education Peripheral Neuropathy Problem List/Past Medical History Ongoing Afib BMI 45.0-49.9, adult Body mass index (BMI) of 45.0-49.9 in adult Chronic GERD Colon cancer screening Colon polyp Constipation, outlet dysfunction Derangement of knee Headache Hemorrhoids Hiatal hernia HLD (hyperlipidemia) HTN (hypertension) Metabolic syndrome X Mild persistent asthma Morbid obesity Morbid obesity with BMI of 45.0-49.9, adult Obesity, morbid, BMI 40.0-49.9 YU (obstructive sleep apnea) Osteoarthritis Pain in thumb joint with movement of right hand Pelvic floor dysfunction Polycythemia Psoriasis Raynaud's phenomenon without gangrene Raynauds phenomenon Rhonchi at right lung base S/P cholecystectomy S/P hysterectomy Sciatica Smoker Steatosis of liver Type 2 diabetes mellitus with polyneuropathy Ulnar neuropathy Vitamin D3 deficiency Historical Asthma Procedure/Surgical History Colonoscopy (10/22/2023), Esophagogastroduodenoscopy (10/22/2023), Cardiac catheter (2005), MANDI BSO- Total abdominal hysterectomy and bilateral salpingo- oophorectomy (01/15/2004), Arthroscopy, History of lumbar spine surgery, Tonsillectomy and adenoidectomy. Medications Albuterol (Eqv-Ventolin HFA) 90 mcg/inh inhalation aerosol, 2 puff(s), Inhalation, q6hr, PRN atorvastatin 40 mg Tab, See Instructions, 4 refills Eliquis 5 mg oral tablet, 5 mg= 1 tab(s), Oral, BID flecainide 100 mg Tab, 100 mg= 1 tab(s), Oral, q12hr Glucometer, See Instructions Lancets, See Instructions Lyrica 50 mg Cap, 50 mg= 1 cap(s), Oral, TID, 2 refills meloxicam, 7.5 mg, Oral, Daily metformin 500 mg Tab, See Instructions, 3 refills Nurtec ODT 75 mg oral tablet, disintegrating, 75 mg= 1 tab(s), SubLingual, Once omeprazole 40 mg Cap-DR, See Instructions Ozempic (1 mg dose) 4 mg/3 mL subcutaneous solution, See Instructions, 2 refills Test strips, See Instructions Allergies Decadron (Unknown) predniSONE (Unknown) acetaminophen-hydrocodone (Nausea) lisinopril (Unknown) penicillin (Unknown) Social History Alcohol - Denies Alcohol Use, 12/03/2023 Past, 1-2 times per year, 12/04/2024 Substance Abuse - Denies Substance Abuse, 12/03/2023 Never, 12/04/2024 Tobacco 10 or more cigarettes (1/2 pack or more)/day in last 30 days Tobacco Use:. Current vaping or e-cigarette use Smokeless Tobacco Use:. Cigarettes, Yes, 03/09/2025 Family History Patient was adopted Immunizations Vaccine Date Status Comments influenza virus vaccine, inactivated - Not Given Patient RefusesNormalCity HospitalComment on above:Result Comment: Electronically Signed By: DEYSI RO CNP\.br\Date and Time Signed: 04/06/25 14:22 ESTOffice Visiton 56-66-1473Keargn-up [id number] Jovana Xie 1970 F Date Provider Department Center 03/31/2025 Marisa-ADA PEDRAZA TENZIN [facility] Family History Problem Relation Age of Onset Coronary artery disease Mother Other Mother Family Status - Relation Status Age at Mother Father Level of Service:81611 MS OFFICE/OUTPATIENT ESTABLISHED MOD MDM 30 MIN Reason for Visit and Comments: Follow-up [386207] - Patient is here today for a 6 month follow up Hypertension [011676] Atrial Fibrillation [80] Migraine [701430] Hyperlipidemia [182] Shortness of Breath [868031] - SOB/EVANS with and without activity and being out in the cold Fatigue [46] - Increased fatigue Palpitations [] - Palpitations/racing heart/flutterNormalUniBarnesville HospitalOrders Onlyon 95-00-2161Dscodl [id number] Jovana Xie Shirlene 1970 F Date Provider Department Center 03/31/2025 Artuhr-CHERYLE IRELAND TENZIN [facility] Family History Problem Relation Age of Onset Coronary artery disease Mother Other Mother Family Status - Relation Status Age at Mother Father DeceasedNormalUniBarnesville HospitalAmbulatory Visit Summary on 24-59-2142Qwjnsojqas Visit SummaryAmbulatory Visit Summary JOVANA XIE :1970 Visit Date:03/09/2025 Ambulatory Visit Instructions Your Diagnosis Neuropathy Controlled type 2 diabetes mellitus without complication, without long-term current use of insulin BMI 45.0-49.9, adult Smoker These Are Your Goals Reduce Fall Risk - Not met Interventions: Learn About Home Safety to Prevent Falls or Injury - Progressing Review educational material - Not done Reduce [...] report any abnormal findings to provider - Progressing Consult with field handyman - Not done Review educational material - [...] pickles, chips, olives, or adding extra salt -Progressing Decrease back pain and maintain/ improve mobility - Not met Interventions: Partake in low impact activity 2-3 days per week (as tolerated) such as: swim, yoga, walk... - Not done Use heating pad or icepack as needed for soothing comfort - Progressing complete daily stretching exercises - Not done Trend weight down to improve overall health - Not met Interventions: Consult with field handyman - Not done eat a well balanced diet rich in protein and avoid foods high in saturated fat - Not done increase low impact exercise as tolerated - Not done Your Care Team Attending Physician - DEYSI RO CNP Primary Care Physician - DEYSI RO CNP This Is Your Medications List albuterol (Albuterol (Eqv-Ventolin HFA) 90 mcg/inh inhalation aerosol) apixaban (Eliquis 5 mg oral tablet) atorvastatin (atorvastatin 40 mg Tab) flecainide (flecainide 100 mg Tab) meloxicam metformin (metformin 500 mg Tab) omeprazole (omeprazole 40 mg Cap-DR) pregabalin (Lyrica 50 mg Cap) rimegepant (Nurtec ODT 75 mg oral tablet, disintegrating) semaglutide (Ozempic (1 mg dose) 4 mg/3 mL subcutaneous solution) Procedures Performed Colonoscopy (10/22/2023), Esophagogastroduodenoscopy (10/22/2023), Cardiac catheter (2005), MANDI BSO- Total abdominal hysterectomy and bilateral salpingo- oophorectomy (01/15/2004), Arthroscopy, History of lumbar spine surgery, Tonsillectomy and adenoidectomy. Discharge Vitals Heart Rate (Peripheral) 90 Blood Pressure 138/80 Height 162 cm Height 64 in Weight 123.2 kg Weight 271.609 lb BMI 46.94 What to do next Scheduled Follow-Up Appointments Sunday 1:20 PM EST With: DEYSI RO CNP Where: [address] [address]- Sunday2025 8:00 AM EDT With: Where: [address] [address]- Medications What How Much When Why Instructions New pregabalin (Lyrica 50 mg Cap) 1 Capsules By Mouth 3 times a day Neuropathy Controlled type 2 diabetes mellitus without complication, without long-term current use of insulin Pickup at [facility]/pharmacy #[id number] Unchanged albuterol (Albuterol (Eqv-Ventolin HFA) 90 mcg/ inh inhalation aerosol) 2 Puffs Inhalation Every 6 hours as needed for Shortness of breath or wheezing Unchanged apixaban (Eliquis 5 mg oral tablet) 1 Tablets By Mouth 2 times a day Unchanged atorvastatin (atorvastatin 40 mg Tab) See instructions TAKE 1 TABLET BY MOUTH EVERY DAY Unchanged flecainide (flecainide 100 mg Tab) 1 Tablets By Mouth Every 12 hours Unchanged meloxicam 7.5 Milligram By Mouth Every day Unchanged metformin (metformin 500 mg Tab) See instructions TAKE 1 TABLET BY MOUTH EVERY DAY Unchanged omeprazole (omeprazole 40 mg Cap-DR) See instructions TAKE 1 CAPSULE BY MOUTH EVERY DAY Unchanged rimegepant (Nurtec ODT 75 mg oral tablet, disintegrating) 1 Tablets Sublingual Once at onset of migraine Unchanged semaglutide (Ozempic (1 mg dose) 4 mg/ 3 mL subcutaneous solution) See instructions INJECT 1 MG SUBCUANEOUSLY WEEKLY Pharmacy Information [facility]/pharmacy #[id number]: [address], [place] [phone] Allergies Decadron (Unknown) predniSONE (Unknown) acetaminophen-hydrocodone (Nausea) lisinopril (Unknown) penicillin (more content not included)...[facility] Medicine Office/Clinic Noteon [id number] Medicine Office/Clinic NoteFafranciscan children's Medicine Office/Clinic Note Chief Complaint burning to bilateral feet The patient reports burning and numbness in the feet. HPI Staff Burning to bilateral feet. refills: Eliquis and would like to decrease omeprazole to 20 mg Onset: 2months ago Location: bilateral feet Characteristics: burning sensation to feet and worsens at night time Relieved by: feet soaks and tylenol History of Present Illness 55-year-old female presenting with neuropathy symptoms, including burning and numbness in the feet.These symptoms have recently worsened, and she has not found relief with previous medications such as gabapentin, which she took several years ago for back-related issues. The patient reports that the gabapentin caused drowsiness without alleviating the burning sensation. The patient has a history of type 2 diabetes mellitus, which is currently controlled without the use of insulin. She has undergone an EMG in the past, which confirmed the diagnosis of diabetic neuropathy. The patient has experienced difficulty in maintaining consistent care with a neurologist due to frequent changes in providers. Review of Systems PHQ Score Initial Depression Screen Score: 0 SCORE - Neurological: Reports burning and numbness in the feet, denies relief from gabapentin. Physical Exam Vitals & Measurements HR: 90(Peripheral) BP: 138/80 SpO2: 96% HT: 162 cm HT: 64 in WT: 123.2 kg WT: 271.609 lb BMI: 46.94 General: alert, no acute distress ENMT: TM's clear, oral mucosa moist, no pharyngeal erythema or exudate Cardiovascular: regular rate and rhythm, normal peripheral perfusion Respiratory: Lungs CTA, respirations non labored Extremities: no deformity, no trauma Neurological: oriented x 4, LOC appropriate for age speech normal Assessment/Plan 1. Neuropathy (G62.9: Polyneuropathy, unspecified) - Consider trial of Lyrica for neuropathy management, pending urine drug screen results. - Medication Agreement & UDS completed today in the office - OARRS reviewed and found to be appropriate - Letter completed for PO - F/U in 4 weeks Ordered: Misc Prescription, Lancets, See Instructions, 100 EA, 0, Test blood sugar TID PRN E11.9, [id number], Supply, 162, cm, 03/09/25 13:29:00 EDT, Height/Length Dosing, 123.2, kg, 03/09/25 13:29:00EDT, Weight Dosing Misc Prescription, Glucometer, See Instructions, 1 EA, 0, Glucometer to test blood sugar TID PRN E11.9, [id number], Supply, 162, cm, 03/09/25 13:29:00 EDT, Height/Length Dosing, 123.2, kg, 03/09/25 13:29:00 EDT, Weight Dosing pregabalin, 50 mg = 1 cap(s), Oral, TID, # 90 cap(s), Refills(s) 0, Pharmacy: [id number], 162, cm, 03/09/25 13:29:00 EDT, Height/Length Dosing, 123.2, kg, 03/09/25 13:29:00 EDT, Weight Dosing Current tobacco smoker 1034F Dilated retinal eye exam WITHOUT retinopathy documented and reviewed Drug Screen POC 66784 HBA1C <7.0 Most Recent Level 3044F Influenza immunization status assessed 1030F Most recent diastolic blood pressure 80-89 mm Hg 3079F Systolic BP 130-139 mm Hg (Most Recent) 3075F 2. Controlled type 2 diabetes mellitus without complication, without long-term current use of insulin (E11.9: Type 2 diabetes mellitus without complications) - Continue current management plan for diabetes, monitor blood glucose levels regularly. Ordered: Misc Prescription, Lancets, See Instructions, 100 EA, 0, Test blood sugar TID PRN E11.9, [id number], Supply, 162, cm, 03/09/25 13:29:00 EDT, Height/Length Dosing, 123.2, kg, 03/09/25 13:29:00EDT, Weight Dosing Misc Prescription, Test strips, See Instructions, 100 EA, 0, Test blood sugar TID PRN E11.9, [id number], Supply, 162, cm, 03/09/25 13:29:00 EDT, Height/Length Dosing, 123.2, kg, 03/09/25 13:29:00 EDT, Weight Dosing Misc Prescription, Glucometer, See Instructions, 1 EA, 0, Glucometer to test blood sugar TID PRN E11.9, [id number], Supply, 162, cm, 03/09/25 13:29:00 EDT, Height/Length Dosing, 123.2, kg, 03/09/25 13:29:00 EDT, Weight Dosing pregabalin, 50 mg = 1 cap(s), Oral, TID, # 90 cap(s), Refills(s) 0, Pharmacy: [id number], 162, cm, 03/09/25 13:29:00 EDT, Height/Length Dosing, 123.2, kg, 03/09/25 13:29:00 EDT, Weight Dosing Drug Screen POC 11672 3. BMI 45.0-49.9, adult (Z68.42: Body mass index [BMI] 45.0-49.9, adult) BMI 46.94 Ordered: Misc Prescription, Lancets, See Instructions, 100 EA, 0, Test blood sugar TID PRN E11.9, [id number], Supply, 162, cm, 03/09/25 13:29:00 EDT, Height/Length Dosing, 123.2, kg, 03/09/25 13:29:00EDT, Weight Dosing Misc Prescription, Glucometer, See Instructions, 1 EA, 0, Glucometer to test blood sugar TID PRN E11.9, [id number], Supply, 162, cm, 03/09/25 13:29:00 EDT, Height/Length Dosing, 123.2, kg, 03/09/25 13:29:00 EDT, Weight Dosing Drug Screen POC 17873 4. Smoker (F17.200: Nicotine dependence, unspecified, uncomplicated) We strongly recommend to quit tobacco use. Cigarette smoking harms nearly e (more content not included)...[facility] SystemComment on above: Result Comment: Electronically Signed By: DEYSI RO CNP\.br\Date and Time Signed: 03/09/25 14:13 EDTPatient Letter FTon [id number] Letter FTPatient [place] [facility] [place] [place] [address] : 1970 To Whom It May Concern: I have prescribed Lyrica for Jovana due to her neuropathy, if you have any questions please contact my office[place] [address] [facility] Population [facility] Case Information Case Priority: None Programs: -- Referral Source: Software Licensing Specialist Referral Reason: Disease management Case Type: Chronic Care Management Risk Score: -- Case Status: Active (January 07, 2024) Date Assigned: December 27, 2023 Assigned By: Rodrigo Khanna Date Enrolled: January 07, 2024 Assigned Primary Personnel: Rodrigo Khanna Assigned Secondary Personnel: -- Case Physician: DEYSI RO CNP Problems Ongoing Afib BMI 45.0-49.9, adult Body mass index (BMI) of 45.0-49.9 in adult Chronic GERD Colon cancer screening Colon polyp Constipation, outlet dysfunction Controlled type 2 diabetes mellitus without complication, without long-term current use of insulin Derangement of knee Extrinsic asthma with status asthmaticus Headache Hemorrhoids Hiatal hernia HLD (hyperlipidemia) HTN (hypertension) Metabolic syndrome X Morbid obesity Morbid obesity with BMI of 45.0-49.9, adult Obesity due to excess calories Obesity, morbid, BMI 40.0-49.9 Osteoarthritis Pain in thumb joint with movement of right hand Pelvic floor dysfunction Polycythemia Psoriasis Raynaud's phenomenon without gangrene Raynauds phenomenon Rhonchi at right lung base S/P cholecystectomy S/P hysterectomy Sciatica Smoker Steatosis of liver Ulnar neuropathy Vitamin D3 deficiency Historical Asthma Procedure/Surgical History Colonoscopy (10/22/2023), Esophagogastroduodenoscopy (10/22/2023), Cardiac catheter (2005), MANDI BSO- Total abdominal hysterectomy and bilateral salpingo- oophorectomy (01/15/2004), Arthroscopy, History of lumbar spine surgery, Tonsillectomy and adenoidectomy. Home Medications Albuterol (Eqv-Ventolin HFA) 90 mcg/inh inhalation aerosol, 2 puff(s), Inhalation, q6hr, PRN atorvastatin 40 mg Tab, See Instructions Eliquis 5 mg oral tablet, 5 mg= 1 tab(s), Oral, BID flecainide 100 mg Tab, 100 mg= 1 tab(s), Oral, q12hr meloxicam, 7.5 mg, Oral, Daily metformin 500 mg Tab, See Instructions, 3 refills Nurtec ODT 75 mg oral tablet, disintegrating, 75 mg= 1 tab(s), SubLingual, Once omeprazole 40 mg Cap-DR, See Instructions Ozempic (1 mg dose) 4 mg/3 mL subcutaneous solution, See Instructions, 2 refills Allergies Decadron (Unknown) predniSONE (Unknown) acetaminophen-hydrocodone (Nausea) lisinopril (Unknown) penicillin (Unknown) Social History Alcohol - Denies Alcohol Use, 12/03/2023 Past, 1-2 times per year, 12/04/2024 Substance Abuse - Denies Substance Abuse, 12/03/2023 Never, 12/04/2024 Tobacco 5-9 cigarettes (between 1/4 to 1/2 pack)/day in last 30 days Tobacco Use:. Never Smokeless Tobacco Use:. Cigarettes, 12/11/2024 Family History Patient was adopted Screenings and Assessments 01/07/24 12:27:00 Result Name Value Comment CCM Program Enrollment Verbally agreed to receive CCM services CCM Written Consent Written consent in progress CCM Verbal Consent By Self 01/07/24 11:00:00 Result Name Value Comment HIPPA Verified Type of Contact Telephone Information Given by Self CM Preferred Spoken Language Pakistani CM Preferred Written Language Pakistani Preferred Communication Mode Verbal Ability to Read/Write Able to read, Able to write Preferred Salutation Molder Punch Called No Preferred Method of Contact Cell Cell Preferred Mailing Address [address] [place] [address] [phone] Best Time to Visit or Contact 7-10 am Best Day to Visit or Contact No preference Appointment Reminders Other secured messaging Preferred Way to Send PHI Other secured messaging Able to Read Pakistani Able to read Pakistani Learning Style Pref Patient Demonstration Teaching Method [...] community Special Services and Resources Counseling Primary Administration Intern of Home Medication Self Medication Adherence Method Does not use any method Current DME at Home Yes has several items in home: lift chair, walker, cane, shower chair, motor scooter Currently Receiving Skilled (more content not included)...[facility] Diffon [id number] Absolute0.1 E9/LNormal 0.0-0.2FProMedica Flower HospitalComment on above:Performed By: #### [id number] #### [facility] [address], [place] [address]Jryilbvwv/100 WBC (Bld)0.6 %Normal0.0-2.0City HospitalComment on above:Performed By: #### [id number] #### [facility] [address], [place] [address]Nhr Absolute0.3 E9/LNormal0.0-0.5FProMedica Flower Hospital Comment on above:Performed By: #### [id number] #### [facility] [address] [place] [address] 514[address]Anwksyfrnsr/100 WBC (Bld)2.5 %Normal0.0-8.0City HospitalComment on above:Performed By: #### [id number] #### [facility] [address] [place] [address] 50[address]Zzbnmakggcu distribution width (RBC) [Ratio]15.4 %High10.9-14.2 City HospitalComment on above:Performed By: #### [id number] #### [facility] [address] [place] [address] 818[address]Jwtwgbrgje (Bld) [Volume fraction]48.4 %High34.0-46.0City HospitalComment on above:Performed By: #### [id number] #### [facility] [address] [place] [address] 219[address]Crewteyxta (Bld) [Mass/Vol]15.8 g/gWKllaqq04.0-16.0City HospitalComment on above:Performed By: #### [id number] #### [facility] [address] [place] [address] 376[address]Pjiwe Absolute3.1 E9/LNormal1.0-4.0[facility] Comment on above:Performed By: #### [id number] #### [facility] [address] [place] [address] 94163Hbktidlxrjm/100 WBC (Bld)29.1 %Uwadcd18.0-50.0City HospitalComment on above:Performed By: #### [id number] #### [facility] [address] [place] [address] 20959CWM (RBC) [Entitic mass]29.9 ulZciekt46.0-34.0City HospitalComment on above:Performed By: #### [id number] #### [facility] [address], [place] [address]HCMY (RBC) [Mass/Vol]32.7 g/jRKiuftt66.4-36.0City HospitalComment on above:Performed By: #### [id number] #### [facility] [address] [place] [address] 23379JIK (RBC) [Entitic vol]91.4 cSHqidzt91.0-100.0City HospitalComment on above:Performed By: #### [id number] #### [facility] [address] [place] [address] 64676Ydnz Absolute0.7 E9/LNormal0.2-1.0[facility] Comment on above:Performed By: #### [id number] #### [facility] [address] [place] [address] 59241Zvspjwcwt/100 WBC (Bld)6.6 %Normal4.0-14.0City HospitalComment on above:Performed By: #### [id number] #### [facility] [address] [place] [address] 553[address]Lypzbz Absolute6.6 E9/LNormal2.0-7.5FProMedica Flower Hospital Comment on above:Performed By: #### [id number] #### [facility] [address] [place] [address] 96897Wditun Auto61.2 %Smabsn79.0-75.0[facility] Comment on above:Performed By: #### [id number] #### [facility] [address] [place] [address] 945[address]Gsfqjzbz570.0 E9/GXjwjlp712.0-500.0[facility] Comment on above:Performed By: #### [id number] #### [facility] [address] [place] [address] 38004Duxtdipn mean volume (Bld) [Entitic vol]9.5 fLNormal6.4-10.8 [facility] HospitalComment on above:Performed By: #### [id number] #### [facility] [address], [place] [address]YNL9.3 E12/LNormal4.3-5.9City HospitalComment on above:Performed By: #### [id number] #### [facility] [address], [place] [address]HMD61.8 E9/LNormal4.0-11.0City HospitalComment on above:Performed By: #### [id number] #### [facility] [address], [place] [address]NVEfw 13-97-7035Upckwxk [Mass/Vol]4.1 g/dLNormal3.3-5.0City HospitalComment on above:Performed By: #### [id number] #### [facility] [address] [place] [address] 83493Txrsknq/Globulin [Mass ratio]1.4 {ratio}Normal1.1-2.2FProMedica Flower HospitalComment on above:Performed By: #### [id number] #### [facility] [address], [place] [address]Prm Oink877 Int._Unit/QYger76-63TlpwwsCity Hospital Comment on above:Performed By: #### [id number] #### [facility] [address], [place] [address]IBU73 Int._Unit/LNormal6-46City HospitalComment on above:Performed By: #### [id number] #### [facility] [address], [place] [address]Nxtxv gap [Moles/Vol]11 mmol/LNormal6-16City HospitalComment on above:Performed By: #### [id number] #### [facility] [address], [place] [address]TZK43 Int._Unit/LNormal5-43City HospitalComment on above:Performed By: #### [id number] #### [facility] [address], [place] [address]Tkri Total0.4 mg/dLNormal0.0-1.1FProMedica Flower Hospital Comment on above:Performed By: #### [id number] #### [facility] [address], [place] [address]LHN/Creat Ratio23 No TvmwrXvqf49-14OtybjtCity Hospital Comment on above:Performed By: #### [id number] #### [facility] [address], [place] [address]Ubeskki [Mass/Vol]9.5 mg/dLNormal8.9-11.1FProMedica Flower HospitalComment on above:Performed By: #### [id number] #### [facility] [address], [place] [address]Gsdvlpaw [Moles/Vol]107 mmol/GWsjrho702-826UdpozrCity HospitalComment on above:Performed By: #### [id number] #### [facility] [address], [place] [address]EF2 [Moles/Vol]22 mmol/UZumebb37-79EbiyeoCity Hospital Comment on above:Performed By: #### [id number] #### [facility] [address], [place] [address]Wflblkfqsh [Mass/Vol]0.9 mg/dLNormal0.5-1.3FProMedica Flower HospitalComment on above:Performed By: #### [id number] #### [facility] [address], [place] [address]Rxisyotb (S) [Mass/Vol]2.9 g/dLNormal1.4-4.0City HospitalComment on above:Performed By: #### [id number] #### [facility] [address], [place] [address]Kmvyohf [Mass/Vol]117 mg/qUObkybk35-310DdzxraCity HospitalComment on above:Performed By: #### [id number] #### [facility] [address], [place] [address]Kulxosbte [Moles/Vol]4.3 mmol/LNormal3.5-5.3FProMedica Flower HospitalComment on above:Performed By: #### [id number] #### [facility] [address], [place] [address]Aizsxjv [Mass/Vol]7.0 g/dLNormal6.0-7.8City HospitalComment on above:Performed By: #### [id number] #### [facility] [address], [place] [address]Pragbp [Moles/Vol]136 mmol/FPjjhqe480-747JtxszyCity HospitalComment on above:Performed By: #### [id number] #### [facility] [address], [place] [address]Pbbe nitrogen [Mass/Vol]21 mg/dLNormal5-21City HospitalComment on above:Performed By: #### [id number] #### [facility] [address], [place] [address]Ugatml Medicine Office/Clinic Noteon [id number] Medicine Office/Clinic NoteFami Medicine Office/Clinic Note Chief Complaint Establish Care & Follow Up The patient presents for a six-month follow-up and to establish care with a new provider. HPI Staff Former Dr Erazo pt. Here today for 6m follow up & to establish care with [place]. Hx of Afib, DM, GERD Does see cardio. Last consult back in September. *Ozempic therapy. Last Hgb A1C %: 5.6 % (06/26/24 10:43:00) Last Eye Exam 10/21/24 Referral to Gastro @ [facility] with Dr Erazo due to GERD. Consult completed 07/18/24. She was restarted on Nexium 40mg QD therapy. Needs refill of Eliquis. History of Present Illness 54-year-old female presenting for a six-month follow-up and to establish care with a new provider. She has a history of type 2 diabetes mellitus, which is currently well- controlled with a recent A1cof 5.6%. Her medication regimen includes metformin and Ozempic, and she reports adherence to her prescribed medications. The patient also has a history of supraventricular tachycardia (SVT) for which she takes Eliquis. She denies any recent episodes of palpitations or chest pain. Additionally, she is being treated for hyperlipidemia with atorvastatin. She reports no adverse effects from her current lipid-lowering therapy. The patient is a smoker, which is a significant risk factor for her cardiovascular health. She has not reported any attempts to quit smoking recently. In terms of preventative care, she is up-to-date with her mammograms and colonoscopy screenings. Review of Systems PHQ Score Initial Depression Screen Score: 0 SCORE - Cardiovascular: Denies chest pain or palpitations. - Respiratory: Denies dyspnea or cough. - Gastrointestinal: Reports normal bowel movements. Physical Exam Vitals & Measurements T: 36.9 ???C(Oral) HR: 70(Peripheral) RR: 20 BP: 138/84 SpO2: 96% HT: 162 cm HT: 64 in WT: 127 kg WT: 279.987 lb BMI: 48.39 General: alert, no acute distress Skin: warm, dry Head: no trauma, normocephalic Neck: Trachea midline, no adenopathy, no tenderness Eye: normal conjunctiva, sclera clear ENMT: TM's clear, oral mucosa moist, no pharyngeal erythema or exudate Cardiovascular: regular rate and rhythm, normal peripheral perfusion Respiratory: Lungs CTA, respirations non labored Chest wall: no deformity. Gastrointestinal: soft, non distended, no tenderness, no guarding. Back: No tenderness, Normal ROM, Normal alignment. Extremities: no deformity, no trauma Neurological: oriented x 4, LOC appropriate for age, CN II-XII intact, motor strength equal & normal bilaterally, sensation equal & normal bilaterally, speech normal Psychiatric: cooperative, affect appropriate for age, normal judgement, normal psychiatric thoughts. Assessment/Plan 1. Controlled type 2 diabetes mellitus without complication, without long-term current use of insulin (E11.9: Type 2 diabetes mellitus without complications) - Continue current medication regimen with metformin and Ozempic. - Plan to monitor A1c levels regularly. Awaiting laboratory results Ordered: CBC w/ Auto Diff Comprehensive Metabolic Panel HgbA1c Thyroid Stimulating Hormone 2. HLD (hyperlipidemia) (E78.5: Hyperlipidemia, unspecified) - Continue atorvastatin therapy. Awaiting laboratory results Ordered: CBC w/ Auto Diff Comprehensive Metabolic Panel HgbA1c Thyroid Stimulating Hormone 3. Encounter to establish care with new provider (Z76.89: Persons encountering health services in other specified circumstances) Ordered: CBC w/ Auto Diff Comprehensive Metabolic Panel HgbA1c Thyroid Stimulating Hormone 4. BMI 45.0-49.9, adult (Z68.42: Body mass index [BMI] 45.0-49.9, adult) - Discussed the importance of weight management and potential lifestyle modifications. Ordered: CBC w/ Auto Diff Comprehensive Metabolic Panel HgbA1c Thyroid Stimulating Hormone 5. Smoker (F17.200: Nicotine dependence, unspecified, uncomplicated) - Discussed smoking cessation strategies. Ordered: CBC w/ Auto Diff Comprehensive Metabolic Panel HgbA1c Thyroid Stimulating Hormone Wellness examination (Z00.00: Encounter for general adult medical examination without abnormal findings) Ordered: Lab Specimen Collect [id number] Follow-up With When Contact Information DEYSI RO CNP, FAM Within [address] [place], [place] [id number] Business (1) Additional Instructions: Diabetes Patient Education Blood Glucose Monitoring, Adult Problem List/Past Medical History Ongoing Afib BMI 45.0-49.9, adult Body mass index (BMI) of 45.0-49.9 in adult Chronic GERD Colon cancer screening Colon polyp Constipation, outlet dysfunction Controlled type 2 diabetes mellitus without complication, without long-term current use of insulin Derangement of knee Extrinsic asthma with status asthmaticus Headache Hemorrhoids Hiatal hernia HLD (hyperlipidemia) HTN (hypertension) Metabolic syndrome X Morbid obe (more content not included)...[facility] Comment on above:Result Comment: Electronically Signed By: DEYSI RO CNP\.br\Date and Time Signed: 12/12/24 09:38 MDBVkqW5cbc 70-94-8513PhN5i (Bld) [Mass fraction]5.4 %Normal<=5.9City HospitalComment on above: Performed By: #### [id number] #### [facility] [address] [place] [address]XLLrw 19-46-2642BEX Qn1.50 m[IU]/LNormal0.34-5.60City HospitalComment on above:Performed By: #### [id number] #### [facility] [address], [place] [address]xFHXgi [id number] mL/min/1.73 z1Unlndq>=59[facility] CampusComment on above:Performed By: #### [id number] #### [facility] [address], [place] [address]Fnuoxutzfh Visit Summaryon 14-94-7552Hxmncbeojm Visit Summary Ambulatory Visit Summary JOVANA XIE :1970 Visit Date:12/04/2024 Ambulatory Visit Instructions Your Diagnosis Encounter for Medicare annual examination with abnormal findings Afib Body mass index (BMI) of 45.0-49.9 in adult, Body mass index [BMI] 45.0-49.9, adult Morbid obesity, Morbid obesity with BMI of 45.0-49.9, adult Controlled type 2 diabetes mellitus without complication, without long-term current use of insulin HLD (hyperlipidemia) HTN (hypertension) Chronic GERD Financial problem Current every day smoker These Are Your Goals Reduce Fall Risk [...] to provider - Not done Consult with field handyman - Not done Review educational material - [...] pickles, chips, olives, or adding extra salt -Progressing Decrease back pain and maintain/ improve mobility - Not met Interventions: Partake in low impact activity 2-3 days per week (as tolerated) such as: swim, yoga, walk... - Not done Use heating pad or icepack as needed for soothing comfort - Progressing complete daily stretching exercises - Not done Trend weight down to improve overall health - Not met Interventions: Consult with field handyman - Not done eat a well balanced diet rich in protein and avoid foods high in saturated fat - Not done increase low impact exercise as tolerated - Not done Your Care Team Attending Physician - Melissa Erazo MD Primary Care Physician - Melissa Erazo MD This Is Your Medications List albuterol (Albuterol (Eqv-Ventolin HFA) 90 mcg/inh inhalation aerosol) apixaban (Eliquis 5 mg oral tablet) atorvastatin (atorvastatin 40 mg Tab) flecainide (flecainide 100 mg Tab) meloxicam metformin (metformin 500 mg Tab) omeprazole (omeprazole 40 mg Cap-DR) rimegepant (Nurtec ODT 75 mg oral tablet, disintegrating) semaglutide (Ozempic (1 mg dose) 4 mg/3 mL subcutaneous solution) Procedures Performed Colonoscopy (10/22/2023), Esophagogastroduodenoscopy (10/22/2023), Cardiac catheter (2005), MANDI BSO- Total abdominal hysterectomy and bilateral salpingo- oophorectomy (01/15/2004), Arthroscopy, History of lumbar spine surgery, Tonsillectomy and adenoidectomy. Discharge Vitals Heart Rate (Peripheral) 58 Blood Pressure 160/80 Height 162 cm Height 64 in Weight 126.0 kg Weight 277.782 lb BMI 48.01 What to do next Scheduled Follow-Up Appointments 2024 2:20 PM EDT With: DEYSI RO CNP Where: [address] [id number]- [id number] 8:00 AM EDT With: Where: [address] [address]- Medications What How Much When Instructions Unchanged albuterol (Albuterol (Eqv-Ventolin HFA) 90 mcg/ inh inhalation aerosol) 2 Puffs Inhalation Every 6 hours as needed for Shortness of breath or wheezing Unchanged apixaban (Eliquis 5 mg oral tablet) 1 Tablets By Mouth 2 times a day Unchanged atorvastatin (atorvastatin 40 mg Tab) See instructions TAKE 1 TABLET BY MOUTH EVERY DAY Unchanged flecainide (flecainide 100 mg Tab) 1 Tablets By Mouth Every 12 hours Unchanged meloxicam 7.5 Milligram By Mouth Every day Unchanged metformin (metformin 500 mg Tab) See instructions TAKE 1 TABLET BY MOUTH EVERY DAY Unchanged omeprazole (omeprazole 40 mg Cap-DR) See instructions TAKE 1 CAPSULE BY MOUTH EVERY DAY Unchanged rimegepant (Nurtec ODT 75 mg oral tablet, disintegrating) 1 Tablets Sublingual Once at onset of migraine Unchanged semaglutide (Ozempic (1 mg dose) 4 mg/ 3 mL subcutaneous solution) See instructions INJECT 1 MG SUBCUANEOUSLY WEEKLY Allergies Decadron (Unknown) predniSONE (Unknown) acetaminophen-hydrocodone (Nausea) lisinopril (Unknown) penicillin (Unknown) Problems Ongoing - Any problem that you are currently r (more content not included)... [facility]Cl[facility]on 12-04-2024 Family Medicine Office/Clinic NoteFafranciscan children's Medicine Office/Clinic Note Chief Complaint Subsequent Medicare Wellness Review of Systems PHQ Score Initial Depression Screen Score: 0 SCORE Physical Exam Vitals & Measurements HR: 58(Peripheral) BP: 160/80 HT: 162 cm HT: 64 in WT: 126.0 kg WT: 277.782 lb BMI: 48.01 Procedure I was in the office and available for consultation and to provide direct supervision at the time ofthis visit. I have provided supervision of the care team and have reviewed this chart and office note and agree with the plan of care. Assessment/Plan 1. Encounter for Medicare annual examination with abnormal findings (Z00.01: Encounter for general adult medical examination with abnormal findings) Patient in office today for her Subsequent Medicare Wellness Visit. A customized and personalized print out of all the current AHRQ USPSTF???s recommendations for preventative services and all current CDC recommended immunizations, relevant risk recommendations and the following patient brochures were given. Reviewed What can I expect during my Medicare preventative care visit CDC-Falls Prevention and home safety screening reviewed. Patient denies any falls in last 12 months, voices no worry about falling, exhibits no problems with sitting and standing. Pt voices understanding with keeping walk way area free of clutter to prevent tripping and/or falling. [place] Advance Directives reviewed, paperwork given previously. Patient has not completed. Encouragedto bring into office once completed to have scanned into chart. Patient denies any problems with ADL???s and Instrumental ADL???s. Cognitive screening completed with memory and clock face drawing. Immunization Record reviewed with the patient. Discussed Shingrix vaccine and availability, declined further information on it. No COVID vaccines have been administered. Immunization record is up to date. Allergies and medications reviewed and up to date. Patient denies concerns with taking medication as prescribed, reviewed OTC medications with patient with medication list up to date. Blood tests were reviewed:UTD Colonoscopy up to date, last was (10/22/[address] Valiente), due for repeat 5 years. Patient reports she had recent Mammogram. Called [facility] Last Mammogram was 12/14/2023, repeat will be due 1 year. Report in chart. @ 8, 8:30 am). Reviewed concerns with bladder control over past 6 months with no concerns. Reviewed pain symptoms with patient: 08/11, back pain, takes meloxicam as directed and Tylenol as needed. Reviewed all outside providers that patient follows. Last visit summary notes available in chart and/or have been requested. Follow up scheduled: 12/11/2024. AWV has been scheduled: 12/07/2025. Abnormal Blood Pressure readin/80, second reading 150/90. Patient reports blood pressure as normally high for years . Patient denies signs or symptoms of heart attack. Medicare provides yearly screening for alcohol and depression concerns. This is completed during our Medicare wellness visit for those who do not have a current diagnosis of depression or concerns with alcohol use. I spent a total of (12) minutes on this date of service which included preparing to see the patient, face to face patient care, completing clinical documentation, obtaining and/or reviewing separately obtained history, counseling and educating the patient with handouts. Explanations were provided with reviewing questionnaires. AUDIT risk assessment screening completed, risk score(0) with patient denying concerns with use. Completed PHQ-2 risk assessment for depression with risk score(0), negative findings. Patient has been reminded to notify the provider if there would be a change or concerns with symptoms with fear, unable to sleep, worrying too much or feeling down and/or sad with lost of interest with daily activities. Will continue to monitor with screening yearly during Medicare wellness visits. 2. Afib (I48.91: Unspecified atrial fibrillation) Patient denies having episodes with irregular or fast/rapid heartbeat. Heart rate in office today is (58 and regular.) Taking medications (flecainide and Eliquis.) Denies concerns with increased fatigue and/or sudden change in weight. No pain to chest or belly region. Patients are at higher risk ofthis condition if you smoke, are older, have diabetes, or are overweight. Voices understanding withsymptoms to monitor for and follow instructions about medicines, diet, exercise, and follow up visits. Patient follows up with [facility], last visit notes available in chart and have been reviewed. Cardiac Healthy Nutrition reviewed with patient. 3. Body mass index (BMI) of 45.0-49.9 in adult, (Z68.42: Body mass index [BMI] 45.0-49.9, adult)Body mass index [BMI] 45.0-49.9, adult The standard range for ages 18 and older is >=18.5 and < 25 kg/m2. Your BMI (48.0) today was above this range, this falls in the morbid obese category and there are medical benefits to weight loss. BMI monitoring is helpful (more content not included)...[facility] SystemComment on above:Result Comment: Electronically Signed By: DEYSI RO CNP\.br\Date and Time Signed: 12/04/24 10:20 EDT\.br\Electronically Co-Signed By: Sophie Cano\.br\Date and Time Co-Signed: 12/04/24 09:24[facility] [place] [facility] Case Information Case Priority: None Programs: -- Referral Source: Software Licensing Specialist Referral Reason: Disease management Case Type: Chronic Care Management Risk Score: -- Case Status: Active (January 07, 2024) Date Assigned: December 27, 2023 Assigned By: Rodrigo Khanna Date Enrolled: January 07, 2024 Assigned Primary Personnel: Rodrigo Khanna Assigned Secondary Personnel: -- Case Physician: Ross MD, Melissa E. Problems Ongoing Afib Body mass index (BMI) [...] deficiency Historical Asthma Procedure/Surgical History Colonoscopy (10/22/2023), Esophagogastroduodenoscopy (10/22/2023), Cardiac catheter (2005), MANDI BSO- Total abdominal hysterectomy and bilateral salpingo- oophorectomy (01/15/2004), Arthroscopy, History of lumbar spine surgery, [...] CCM Program Enrollment Verbally agreed to receive [facility] services CCM Written Consent Written consent in progress CCM Verbal Consent By Self 01/07/24 11:00:00 Result Name Value Comment HIPPA Verified Type of Contact Telephone Information Given by Self CM Preferred Spoken Language Pakistani CM Preferred Written Language Pakistani Preferred Communication Mode Verbal Ability to Read/Write Able to read, Able to write Preferred Salutation MrsSantos Molder Punch Called No Preferred Method of Contact Cell Cell Preferred Mailing Address [address] [place] [phone] Best Time to Visit or Contact 7-10 am Best Day to Visit or Contact No preference Appointment Reminders Other secured messaging Preferred Way to Send PHI Other secured messaging Able to Read Pakistani Able to read Pakistani Learning Style Pref Patient Demonstration Teaching Method [...] community Special Services and Resources Counseling Primary Administration Intern of Home Medication Self Medication Adherence Method Does not use any method Current DME at Home Yes has several items in home: lift chair, walker, cane, shower chair, motor scooter Cu (more content not included)...[facility] SystemOffice Visiton [id number] Jovana Xie 1970 F Date Provider Department Center 09/23/2024 ADA SOTELO Family History Problem Relation Age of Onset Coronary artery disease Mother Other Mother Family Status - Relation Status Age at Mother Father Level of Service:79866 MS OFFICE/OUTPATIENT ESTABLISHED LOW MDM 20 [facility] THORACIC SPINE WO CONTon [id number] THORACIC SPINE WO CONTMR THORACIC SPINE WO CONT MR THORACIC SPINE WO CONT 09/12/2024 6:20 AM INDICATION: Thoracic myelopathy COMPARISON: None TECHNIQUE: Multiplanar multisequence MR images of the thoracic spine without contrast were obtained. FINDINGS: NUMBERING/ALIGNMENT: There are 12 thoracic type rib-bearing vertebrae. Normal kyphosis, no CT can spondylolisthesis. Facet alignment is appropriate. Vertebral body heights are well-maintained. BONE MARROW: Multiple vertebral body hemangiomas, largest lies within L1. SPINAL CORD: Spinal cord signal and morphology is normal. SOFT TISSUES: Unremarkable paraspinal soft tissues. Posterior lung subsegmental atelectasis. DEGENERATIVE FINDINGS: Mild multilevel degenerative changes of the thoracic spine with disc desiccation in the upper and mid thoracic spine. No significant thecal sac stenosis or neural foraminal stenosis throughout. IMPRESSION: Mild multilevel degenerative changes of the thoracic spine without significant thecal sac stenosis or neural foraminal stenosis. ? Approved by Resident Eulalia Potter MD on 09/15/2024 10:39 AM I, Joselito Calderón MD have personally reviewed the image(s) and agree with and/or edited the report Finalized by Joselito Calderón MD on 09/15/2024 12:41 [facility] XR SPINE LUMB BENDING ONLY 2-3 VWSon [id number] SPINE LUMB BENDING ONLY 2-3 VWSXR SPINE LUMB BENDING ONLY 2-3 VWS XR SPINE LUMB BENDING ONLY 2-3 VWS History: Low back pain, unspecified back pain laterality, unspecified chronicity, unspecified whether sciatica present Impression: * No acute findings. * No fracture or destructive lesion. * Diffuse disc disease and facet arthritis. . Similar to December 16, 2015 * Stable flexion-extension with particular attention to the lumbosacral junction where there is a grade 1 anterospondylolisthesis. * Consider MRI if you suspect occult process Finalized by Houston Larsen MD on 08/22/2024 1:52 [facility] MR LUMBAR SPINE WO CONon [id number] [address] Magnetic Resonance Report Signed Patient: JOVANA XIE MR#: [id number] : 1970 Acct:[id number] Age/Sex: 54 / F ADM Date: 08/06/24 Loc: MRI Attending Dr: Aparna Briseno NP Ordering Physician: Aparna Briseno NP Date of Service: 08/06/24 Procedure(s): MR lumbar spine wo con Accession Number(s): [id number] cc: Aparna Briseno NP; MELISSA ERAZO [place] [id number] Patient Name: JOVANA XIE MRN: [id number] date: 1970 Sex: F Assigned Patient Location: MRI Current Patient Location: MRI Accession/Order Number: [id number] Exam Date: 08/06/2024 16:22 Report Date: 08/06/2024 16:39 At the request of: APARNA BRISENO NP Procedure: MR lumbar spine wo con EXAMINATION: MRI LUMBAR SPINE WITHOUT IV CONTRAST CLINICAL HISTORY: Lumbosacral Radiculopathy, Abnormal MRI Lumbar Spine COMPARISON: None TECHNIQUE: Multiecho imaging was performed in the sagittal and axial planes without contrast administration. FINDINGS: Vertebral body heights appear maintained. Hemangioma T12 vertebral body. Spinal cord is in normal position without oral cord signal. No paraspinal mass. Visualized retroperitoneum demonstrates no acute process. At L1-L2: No posterior disc pathology. No neural canal or foraminal stenosis. At L2-L3: No posterior disc pathology. No neural canal or foraminal stenosis. At L3-L4: Mild diffuse broad-based disc bulge is present with facet joint degenerative changes causing mild canal and mild left-sided neural foraminal stenosis. At L4-L5: Diffuse broad-based disc bulge is present causing mild canal and moderate right-sided foraminal stenosis. Facet joint degenerative change. At L5-S1: No posterior disc pathology. No neural canal or foraminal stenosis. MR/MR lumbar spine wo con IMPRESSION: Diffuse broad-based disc bulge is present at the level of L4-L5 causing mild canal and moderate right-sided neural foraminal stenosis. Mild diffuse broad-based disc bulge is present at L3-L4 causing mild canal and mild left-sided neural foraminal stenosis. Impression dictated by: Darrel Herr Jr., D.O.08/06/2024 4:39 PM Dictation Location: [place] [address] Electronically authenticated by: [id number] Y Date: 08/06/2024 16:39 Dictated By: Darrel Herr M.D. Signed By: 08/06/24 1642 DD/ 1639 TD/TT: Thermite Welder:TBHRadiology, Radiologist, MD - 08/06/2024 [place] [address] Magnetic Resonance Report Signed Patient: JOVANA XIE MR#: [id number] : 1970 Acct:[id number] Age/Sex: 54 / F ADM Date: 08/06/24 Loc: MRI Attending Dr: Aparna Briseno NP Ordering Physician: Aparna Briseno NP Date of Service: 08/06/24 Procedure(s): MR lumbar spine wo con Accession Number(s): [id number] cc: Aparna Briseno NP; MELISSA ERAZO [place] [id number] Patient Name: JOVANA XIE MRN: [id number] date: 1970 Sex: F Assigned Patient Location: MRI Current Patient Location: MRI Accession/Order Number: [id number] Exam Date: 08/06/2024 16:22 Report Date: 08/06/2024 16:39 At the request of: APARNA BRISENO NP Procedure: MR lumbar spine wo con EXAMINATION: MRI LUMBAR SPINE WITHOUT IV CONTRAST CLINICAL HISTORY: Lumbosacral Radiculopathy, Abnormal MRI Lumbar Spine COMPARISON: None TECHNIQUE: Multiecho imaging was performed in the sagittal and axial planes without contrast administration. FINDINGS: Vertebral body heights appear maintained. Hemangioma T12 vertebral body. Spinal cord is in normal position without oral cord signal. No paraspinal mass. Visualized retroperitoneum demonstrates no acute process. At L1-L2: No posterior disc pathology. No neural canal or foraminal stenosis. At L2-L3: No posterior disc pathology. No neural canal or foraminal stenosis. At L3-L4: Mild diffuse broad-based disc bulge is present with facet joint degenerative changes causing mild canal and mild left-sided neural foraminal stenosis. At L4-L5: Diffuse broad-based disc bulge is present causing mild canal and moderate right-sided foraminal stenosis. Facet joint degenerative change. At L5-S1: No posterior disc pathology. No neural canal or foraminal stenosis. MR/MR lumbar spine wo con IMPRESSION: Diffuse broad-based disc bulge is present at the level of L4-L5 causing mild canal and moderate right-sided neural foraminal stenosis. Mild diffuse broad-based disc bulge is present at L3-L4 causing mild canal and mild left-sided neural foraminal stenosis. Impression dictated by: Darrel Herr Jr., D.OSantos08/06/2024 4:39 PM Dictation Location: [employer] Electronically authenticated by: [id number] Y Date: 08/06/2024 16:39 Dictated By: Darrel Herr M.D. Signed By: 08/06/24 1642 DD/ 1639 TD/TT: Thermite Welder: [facility]OSPITALRon HealthcareRadiology Study observation (narrative)[facility] LUM[facility] SP[facility] WO CONOrdered By: Radiologist Radiology on [id number] [facility] Center Work Phone: [facility] [place] [phone] Sale To [facility] Case Information Case Priority: None Programs: -- Referral Source: Software Licensing Specialist Referral Reason: Disease management Case Type: Chronic [...] deficiency Historical Asthma Procedure/Surgical History Colonoscopy (10/22/2023), Esophagogastroduodenoscopy (10/22/2023), Cardiac catheter (2005), MANDI BSO- Total abdominal hysterectomy and bilateral salpingo- oophorectomy (01/15/2004), Arthroscopy, History of lumbar spine surgery, [...] Given by Self CM Preferred Spoken Language Pakistani CM Preferred Written Language Pakistani Preferred Communication Mode Verbal Ability to Read/Write Able to read, Able to write Preferred Salutation MrsSantos Molder Punch Called No Preferred Method of Contact Cell Cell Preferred Mailing Address [address] [place] [phone] Best Time to Visit or Contact 7-10 am Best Day to Visit or Contact No preference Appointment Reminders Other secured messaging Preferred Way to Send PHI Other secured messaging Able to Read Pakistani Able to read Pakistani Learning Style Pref Patient Demonstration Teaching Method [...] community Special Services and Resources Counseling Primary Administration Intern of Home Medication Self Medication Adherence Method Does not use any method Current DME at Home Yes has several items in home: lift chair, walker, cane, shower chair, motor scooter Cu (more content not included)...[facility] SystemAmbulatory Visit Summaryon [id number] Visit SummaryAmbulatory Visit Summary JOVANA XIE :1970 Visit Date:07/18/2024 [...] to provider - Not done Consult with field handyman - Not done Review educational material - [...] health - Not met Interventions: Consult with field handyman - Not done eat a well balanced [...] 500 mg Tab) omeprazole (omeprazole 40 mg Aidan-) rimegepant (Nurtec ODT 75 mg oral tablet, disintegrating) semaglutide (Ozempic (1 mg dose) 4 mg/3 mL subcutaneous solution) Procedures Performed Colonoscopy (10/22/2023), Esophagogastroduodenoscopy (10/22/2023), Cardiac catheter (2005), MANDI BSO- Total abdominal hysterectomy and bilateral salpingo- oophorectomy (01/15/2004), Arthroscopy, History of lumbar spine surgery, Tonsillectomy and adenoidectomy. Discharge Vitals Heart Rate (Peripheral) 79 Respiratory Rate 14 Blood Pressure 152/105 Height 64 in Height 162 cm Weight 286.601 lb Weight 130 kg BMI 49.54 What to do next Scheduled Follow-Up Appointments 2024 8:00 AM EDT With: Where: [address] [address]- 2024 8:45 AM EDT With: Freeman AIKEN, Melissa Mary Where: [address] [address]- Medications What How Much When Why Instructions [...] By Mouth Every day Derangement of knee Contactprescribing physician if questions or concerns Unchanged flecainide [...] predniSONE (Unknown) penicillin (Unknown) (more content not included)...NormalWakemed [facility] Hospitaler [facility] CampusGastroenterology Office/Clinic Noteon [id number] Office/Clinic Note Gastroenterology Office/Clinic Note Chief Complaint [...] or dysplasia - Negative for H. pylori (immunohistochemical staining) Note: Appropriate positive controls reviewed for [...] with the above documentation with the following additions/exceptions : PT with upset stomach from orange [...] deficiency Historical Asthma Procedure/Surgical History Colonoscopy (10/22/2023), Esophagogastroduodenoscopy (10/22/2023), Cardiac catheter (2005), MANDI BSO- Total abdominal hysterectomy and bilateral salpingo- oophorectomy (01/15/2004), Arthroscopy, History of lumbar spine surgery, Tonsillectomy and adenoidectomy. Medications Albuterol (Eqv-Ventolin HFA) 90 mcg/inh inhalation aerosol, 2 puff(s), Inhalation, q6hr, PRN Eliquis 5 mg oral tablet, 5 mg= 1 tab(s), Oral, BID flecainide 100 mg Tab, 100 mg= 1 tab(s), Oral, q12hr Lipitor 40 mg Tab, 40 mg= 1 tab(s), Oral, Daily metformin 500 mg Tab, See Instructions Nurte ODT 75 mg oral tablet, disintegrating, (more content not included)... [facility] Health SystemComment on above:Result Comment: Electronically Signed By: Steffanie AIKEN, Navdeep Conteh.br\Date and Time Signed: 07/18/2508:19 EST Ambulatory Visit Summaryon 67-40-3549Hsrsympxal Visit SummaryAmbulatory Visit Summary OJVANA XIE :1970 Visit Date:06/26/2024 Ambulatory Visit Instructions [...] to provider - Not done Consult with field handyman - Not done Review educational material - [...] health - Not met Interventions: Consult with field handyman - Not done eat a well balanced [...] Erazo MD This Is Your Medications List omeprazole (omeprazole [...] 20 mg Tab) Procedures Performed Colonoscopy (10/22/2023), Esophagogastroduodenoscopy (10/22/2023), Cardiac catheter (2005), MANDI BSO- Total abdominal hysterectomy and bilateral salpingo- oophorectomy (01/15/2004), Arthroscopy, History of lumbar spine surgery, Tonsillectomy and adenoidectomy. Discharge Vitals Temperature (Oral) 36.8 ???C Heart Rate (Peripheral) 90 Respiratory Rate 22 Blood Pressure 136/84 Height 161.5 cm Height 64 in Weight 131.1 kg Weight 289.026 lb BMI 50.26 What to do next Scheduled Follow-Up Appointments 2024 8:00 AM EDT With: Where: [address] [id number]- 2024 8:45 AM EDT With: Melissa Erazo MD Where: [address] [address]- Medications What How Much When Instructions New omeprazole (omeprazole 40 mg Cap-DR) 1 Capsules By Mouth Every day Pickup at [facility]/pharmacy #[id number] Unchanged albuterol (Albuterol (Eqv-Ventolin HFA) 90 mcg/ [...] Once at onset of (more content not included)...[facility] w/ Auto Diffon 81-95-7672Qxnbmpxbs/100 WBC (Bld)0.4 %Normal 0.0-2.0City HospitalComment on above:Performed By: #### [id number] #### [facility] [address] [place] [address]Umjkwhctl/Leukocytes Auto (Bld) [Pure # fraction]0.0 E9/LNormal 0.0-0.2[facility] CampusComment on above:Performed By: #### [id number] #### [facility] [address] [place], [place] [address]Tldozkqcpaz (Bld) [#/Vol]0.2 E9/LNormal0.0-0.5[facility] CampusComment on above:Performed By: #### [id number] #### [facility] [address], [place] [address]Fslsuzakdce/100 WBC (Bld)2.5 %Normal0.0-8.0City HospitalComment on above:Performed By: #### [id number] #### [facility] [address] [place], [place] [address]Ufuxwezhxyi distribution width (RBC) [Ratio]14.6 %High10.9-14.2 City HospitalComment on above:Performed By: #### [id number] #### [facility] [address] [place] [address]Nfytoxlhpn (Bld) [Volume fraction]47.5 %High34.0-46.0City HospitalComment on above:Performed By: #### [id number] #### [facility] [address] [place] [address]Fjddorvtwr (Bld) [Mass/Vol]16.1 g/iHGkgw29.0-16.0City HospitalComment on above:Performed By: #### [id number] #### [facility] [address] [place] [address]Tcndtsivscp (Bld) [#/Vol]2.6 E9/LNormal1.0-4.0City HospitalComment on above:Performed By: #### [id number] #### [facility] [address] [place] [address]Jggrtagclfw/100 WBC (Bld)27.5 %Xadcva24.0-50.0City HospitalComment on above:Performed By: #### [id number] #### [facility] [address] [place] [address]DWA (RBC) [Entitic mass]29.8 saUujxsx83.0-34.0City HospitalComment on above:Performed By: #### [id number] #### [facility] [address] [place] [address]OBGK (RBC) [Mass/Vol]34.0 g/iVIkthjf84.4-36.0City HospitalComment on above:Performed By: #### [id number] #### [facility] [address] [place] [address]13[address]HDZ (RBC) [Entitic vol]87.6 sHXfkdef24.0-100.0City HospitalComment on above:Performed By: #### [id number] #### [facility] [address] [place] [address]Yhfxtswbh (Bld) [#/Vol]0.8 E9/LNormal0.2-1.0City HospitalComment on above:Performed By: #### [id number] #### [facility] [address] [place] [address]Davegaomvec (Bld) [#/Vol]5.7 E9/LNormal2.0-7.5FProMedica Flower HospitalComment on above:Performed By: #### [id number] #### [facility] [address] [place] [address]Dhovcziqagr/100 WBC (Bld)61.1 %Gfqaau69.0-75.0City HospitalComment on above:Performed By: #### [id number] #### [facility] [address] [place] [address] 33757Xmyrsnnu256.0 E9/XKymjom612.0-500.0[facility] Comment on above:Performed By: #### [id number] #### [facility] [address] [place] [address] 57421Evfrjxcy mean volume (Bld) [Entitic vol]9.6 fLNormal6.4-10.8 City HospitalComment on above:Performed By: #### [id number] #### [facility] [address] [place] [address] 98091CMX (Bld) [#/Vol]5.4 E12/LNormal4.3-5.9City HospitalComment on above:Performed By: #### [id number] #### [facility] [address] [place] [address] 42654ZYI corrected for nucl RBC Auto (Bld) [#/Vol]9.3 E9/LNormal 4.0-11.0City HospitalComment on above:Performed By: #### [id number] #### [facility] [address] [place], [place] [address]VDPBGDUMLMhacanw By: SYSTEM SYSTEM on 43-84-9947Wcvekhd [Mass/Vol]4.2 g/dLNormal3.3 - 5.0 gm/dLRemisol ChemAlbumin DL <= 20 mg/L (U) [Mass/Vol]7.3 mg/dLHigh0.0 - 1.9 mg/dLRemisol ChemAlbumin/Globulin [Mass ratio] 1.5 {ratio}Normal1.1 - 2.2Remisol ChemALP [Catalytic activity/Vol]106 [iU]/dHigh 21 - 98 Int._Unit/LRemisol ChemALT No additional P-5'-P [Catalytic activity/Vol] 24 [iU]/dNormal6 - 46 Int._Unit/LRemisol ChemAnion gap [Moles/Vol]10 mmol/L Normal6 - 16 mEq/LRemisol ChemAST [Catalytic activity/Vol]18 [iU]/dNormal5 - 43 Int._Unit/LRemisol ChemBilirubin [Mass/Vol]0.5 mg/dLNormal0.0 - 1.1 mg/dLRemisol ChemCalcium [Mass/Vol]10.0 mg/dLNormal8.9 - 11.1 mg/dLRemisol ChemChloride [Moles/Vol]105 mmol/GOdvbab392 - 111 mmol/LRemisol ChemCholesterol [Mass/Vol]228 mg/uMJifl565 - 200 mg/dLRemisol ChemCholesterol in HDL [Mass/Vol]41 mg/dL Invalid Interpretation CodeRemisol ChemComment on above:Result Comment: '>= 60 LOW RISK' '<= 40 HIGH RISK'Cholesterol in LDL [Mass/Vol]169 mg/dLHigh<=129mg/dLRemisol ChemCholesterol in VLDL [Mass/Vol]42 mg/dLHigh7 - 40 mg/dLRemisol ChemCO2 [Moles/Vol]29 mmol/OHvdbzz52 - 31 mmol/LRemisol ChemCreatinine [Mass/Vol]1.0 mg/dLNormal0.5 - 1.3 mg/dLRemisol ZzatvIWN31 mL/min/1.73 p4Fyiryr>=59mL/min/1.73 w5Erchjpa ChemGlobulin (S) [Mass/Vol]2.8 g/dLNormal1.4 - 4.0 gm/dLRemisol Chem Glucose [Mass/Vol]99 mg/cDSxbizd84 - 199 mg/dLRemisol ChemPotassium [Moles/Vol] 4.3 mmol/LNormal3.5 - 5.3 mmol/LRemisol ChemProtein [Mass/Vol]7.0 g/dLNormal6.0 - 7.8 gm/dLRemisol ChemSodium [Moles/Vol]140 mmol/MEhddrg947 - 145 mmol/LRemisol ChemTriglyceride [Mass/Vol]209 mg/dLHigh<=149mg/dLRemisol ChemUrea nitrogen [Mass/Vol]21 mg/dLNormal5 - 21 mg/dLRemisol ChemUrea nitrogen/Creatinine [Mass ratio]21 mg/buWzrs37 - 20Remisol ChemCHEMISTRYOrdered By: Lorri Hanson on 72-30-4441PcQ4l (Bld) [Mass fraction]5.6 %Normal<=5.9%[facility] ChemAutoSSCMPon 17-36-2682Wfanmpf [Mass/Vol]4.2 g/dLNormal3.3-5.0[facility] Comment on above:Performed By: #### [id number] #### Matt [facility] [address] [place], [place] [address]Niqigzs/Globulin (S) [Mass conc ratio]1.5Uhybnw7.1-2.2[facility] CampusComment on above:Performed By: #### [id number] #### [facility] [address], [place] [address]QJF [Catalytic activity/Vol]106 Int._Unit/QUqrj43-02CbyazcCity HospitalComment on above:Performed By: #### [id number] #### [facility] [address], [place] [address]AQE No additional P-5'-P [Catalytic activity/Vol]24 Int._Unit/L Normal6-46City HospitalComment on above:Performed By: #### [id number] #### [facility] [address], [place] [address]Yjcuw gap [Moles/Vol]10 mmol/LNormal6-16City HospitalComment on above:Performed By: #### [id number] #### [facility] [address], [place] [address]XOC [Catalytic activity/Vol]18 Int._Unit/LNormal5-43City HospitalComment on above:Performed By: #### [id number] #### [facility] [address], [place] [address]Uyjbcggvl [Mass/Vol]0.5 mg/dLNormal0.0-1.1FProMedica Flower HospitalComment on above:Performed By: #### [id number] #### [facility] [address] [place] [address] 269[address]Vubpogk [Mass/Vol]10.0 mg/dLNormal8.9-11.1FProMedica Flower HospitalComment on above:Performed By: #### [id number] #### [facility] [address] [place] [address] 614[address]Uxwajpwq [Moles/Vol]105 mmol/WOknkyh143-753PehodlCity HospitalComment on above:Performed By: #### [id number] #### [facility] [address], [place] [address]PP5 [Moles/Vol]29 mmol/RSbkxck69-23KusaqcCity Hospital Comment on above:Performed By: #### [id number] #### [facility] [address] [place] [address]Xmjvemlikz [Mass/Vol]1.0 mg/dLNormal0.5-1.3FProMedica Flower HospitalComment on above:Performed By: #### [id number] #### [facility] [address] [place] [address]Txcxmatk (S) [Mass/Vol]2.8 g/dLNormal1.4-4.0City HospitalComment on above:Performed By: #### [id number] #### [facility] [address], [place] [address]Gvgxmbv [Mass/Vol]99 mg/xAQnyzro61-091NqybmeCity HospitalComment on above:Performed By: #### [id number] #### [facility] [address], [place] [address]Zklszkzle [Moles/Vol]4.3 mmol/LNormal3.5-5.3FProMedica Flower HospitalComment on above:Performed By: #### [id number] #### [facility] [address] [place] [address] 69[address]Cayrjhr [Mass/Vol]7.0 g/dLNormal6.0-7.8City HospitalComment on above:Performed By: #### [id number] #### [facility] [address], [place] [address]Xplcwh [Moles/Vol]140 mmol/YUxxyyo102-800PkigwpCity HospitalComment on above:Performed By: #### [id number] #### [facility] [address] [place] [address]Jxqm nitrogen [Mass/Vol]21 mg/dLNormal5-21City HospitalComment on above:Performed By: #### [id number] #### [facility] [address] [place] [address]79[address]Sjqs nitrogen/Creatinine [Mass ratio]21 No PnsqnXbdd12-24PtdthhCity HospitalComment on above:Performed By: #### [id number] #### [facility] [address] [place] [address]Tiebqs Medicine Office/Clinic Noteon 88-84-1047Vxysck Medicine Office/Clinic NoteFafranciscan children's Medicine Office/Clinic Note Chief Complaint Persistent right-sided [...] an unclear source potentially due to a musclestrain or rib issue. She has a history of chronic GERD, previously managed with omeprazole, which alleviated symptoms but was switched to famotidine. Current symptoms might necessitate a referral nan esophagogastroduodenoscopy (EGD) due to suboptimal control with the [...] respiratory issues. - Recommended discussion with a material flow analyst about persistent lung issues. Review of Systems [...] level of consciousness appropriate for age, CN II- XII intact, motor strength equal & normal bilaterally, speech normal Abdomen: Soft, Non-tender, Non-distended, + Bowel sounds Assessment/Plan 1. Afib (I48.91: Unspecified atrial fibrillation) Continue current anticoagulation therapy with Eliquis. Emphasize fall prevention and immediate evaluation if head trauma occurs. Ordered: CBC w/ Auto Diff Comprehensive Metabolic Panel [facility] [place] Ambulatory Referral HgbA1c Lipid Panel Microalbumin Level Urine 2. Controlled type 2 diabetes mellitus without complication, without long-term current use of insulin (E11.9: Type 2 diabetes mellitus without complications) Maintain current diabetes regime; Recheck labs at this time. Ordered: CBC w/ Auto Diff Comprehensive Metabolic Panel [facility] [place] Ambulatory Referral HgbA1c Lipid Panel Microalbumin Level Urine 3. Chronic GERD (K21.9: Gastro-esophageal reflux disease without esophagitis) Transition back to omeprazole; if symptoms persist, proceed with EGD referral. Ordered: CBC w/ Auto Diff Comprehensive Metabolic Panel [facility] [place] Ambulatory Referral HgbA1c Lipid Panel Microalbumin Level Urine 4. Smoker (F17.200: Nicotine dependence, unspecified, uncomplicated) Encourage smoking cessation strategies and consider supportive therapies or resources. Ordered: CBC w/ Auto Diff Comprehensive Metabolic Panel [facility] [place] Ambulatory Referral HgbA1c Lipid Panel Microalbumin Level Urine 5. Morbid obesity with BMI of 50.0-59.9, adult (E66.01: Morbid (severe) obesity due to excess calories) Address lifestyle modifications, continue monitoring BMI, and senior genetic counselor on weight management strategies. Ordered: CBC w/ Auto Diff Comprehensive Metabolic Panel [facility] [place] Ambulatory Referral HgbA1c Lipid Panel Microalbumin Level Urine 6. Body mass index [BMI] 50.0-59.9, adult (Z68.43: Body mass index [BMI] 50.0- 59.9, adult) Monitor weight status and consider dietary and lifestyle interventions for managing obesity. Ordered: CBC w/ Auto Diff Comprehensive Metabolic Panel HgbA1c Lipid Panel Microalbumin Level Urine 7. Rhonchi at right lung base (R09.89: Other specified symptoms and signs involving the circulatoryand respiratory systems) Found on exam. With the pain pt need a CXR. Will have patient follow up with pulcharu briceño (more contentnot included)...[facility]ita Health SystemComment on above:Result Comment: Electronically Signed By: Freeman AIKEN, Melissa Mary\.br\Date and Time Signed: 06/26/24 10:28 ESTHEMATOLOGYOrdered By: SYSTEM SYSTEM on 54-07-5038Vaqekpkbl/100 WBC (Bld)0.4 %Normal0.0 - 2.0 %Remisol Heme Basophils/Leukocytes Auto (Bld) [Pure # fraction]0.0 E9/LNormal0.0 - 0.2 E9/L Remisol HemeEosinophils (Bld) [#/Vol]0.2 E9/LNormal0.0 - 0.5 E9/LRemisol Heme Eosinophils/100 WBC (Bld)2.5 %Normal0.0 - 8.0 %Remisol HemeErythrocyte distribution width (RBC) [Ratio]14.6 %High10.9 - 14.2 %Remisol HemeHematocrit (Bld) [Volume fraction]47.5 %High34.0 - 46.0 %Remisol HemeHemoglobin (Bld) [Mass/Vol]16.1 g/yLIniy98.0 - 16.0 gm/dLRemisol HemeLymphocytes (Bld) [#/Vol]2.6 E9/LNormal1.0 - 4.0 E9/LRemisol HemeLymphocytes/100 WBC (Bld)27.5 %Sbnijq56.0 - 50.0 %Remisol HemeMCH (RBC) [Entitic mass]29.8 zfAokmyw64.0 - 34.0 pgRemisol HemeMCHC (RBC) [Mass/Vol]34.0 g/bMIcmief31.4 - 36.0 gm/dLRemisol HemeMCV (RBC) [Entitic vol]87.6 lBQbjmtz00.0 - 100.0 fLRemisol HemeMonocytes (Bld) [#/Vol]0.8 E9/LNormal0.2 - 1.0 E9/LRemisol HemeMonocytes/100 WBC (Bld)8.5 %Normal4.0 - 14.0 %Remisol HemeNeutrophils (Bld) [#/Vol]5.7 E9/LNormal2.0 - 7.5 E9/LRemisol Heme Neutrophils/100 WBC (Bld)61.1 %Pzxxju12.0 - 75.0 %Remisol EbaqOgdtscue182.0 E9/L Uuplmk428.0 - 500.0 E9/LRemisol HemePlatelet mean volume (Bld) [Entitic vol]9.6 fLNormal6.4 - 10.8 fLRemisol HemeRBC (Bld) [#/Vol]5.4 E12/LNormal4.3 - 5.9 E12/L Remisol HemeWBC corrected for nucl RBC Auto (Bld) [#/Vol]9.3 E9/LNormal4.0 - 11.0 E9/LRemisol XtrnPymO3tec 30-42-6070CgK1k (Bld) [Mass fraction]5.6 %Normal <=5.9City HospitalComment on above:Performed By: #### [id number] #### [facility] [address], [place] [address]Mvdde Panelon 53-31-0553Unljyojqfxj [Mass/Vol]228 mg/dLHigh 120-200City HospitalComment on above:Performed By: #### [id number] #### [facility] [address], [place] [address]Igiknweafjv in HDL [Mass/Vol]41 mg/dLInvalid Interpretation CodeCity HospitalComment on above:Result Comment: '>= 60 LOW RISK' '<= 40 HIGH RISK'Performed By: #### [id number] #### [facility] [address], [place] [address]Qfkxvczuvqp in LDL [Mass/Vol]169 mg/dLHigh<=129City HospitalComment on above:Performed By: #### [id number] #### [facility] [address], [place] [address]Yzqhoxnxdga in VLDL [Mass/Vol]42 mg/dLHigh7-40City HospitalComment on above:Performed By: #### [id number] #### [facility] [address], [place] [address]Sryxalcdmrqw [Mass/Vol]209 mg/dLHigh<=149City HospitalComment on above:Performed By: #### [id number] #### [facility] [address], [place] [address]H Microalbon 24-55-5286Wsbjjnw DL <= 20 mg/L (U) [Mass/Vol]7.3 mg/dLHigh0.0-1.9City HospitalComment on above:Performed By: #### [id number] #### [facility] [address], [place] [address]tHZPtf 01-56-6795hYMH68 mL/min/1.73 n9Zknfkp>=59City HospitalComment on above:Performed By: #### [id number] #### [facility] [address], [place] [address]Qmsnesfrdx Healthon 07-62-3130VhdsxbhdlsWellSpan Surgery [facility] Case Information Case Priority: None Programs: -- Referral Source: Software Licensing Specialist Referral Reason: Disease management Case Type: Chronic [...] deficiency Historical Asthma Procedure/Surgical History Colonoscopy (10/22/2023), Esophagogastroduodenoscopy (10/22/2023), Cardiac catheter (2005), MANDI BSO- Total abdominal hysterectomy and bilateral salpingo- oophorectomy (01/15/2004), Arthroscopy, History of lumbar spine surgery, [...] Assessments 01/07/24 12:27:00 Result Name Value Comment [facility] Program Enrollment Verbally agreed to receive [facility] services CCM Written Consent Written consent in progress CCM Verbal Consent By Self 01/07/24 11:00:00 Result Name Value Comment HIPPA Verified Type of Contact Telephone Information Given by Self CM Preferred Spoken Language Pakistani CM Preferred Written Language Pakistani Preferred Communication Mode Verbal Ability to Read/Write Able to read, Able to write Preferred Salutation MrsSantos Molder Punch Called No Preferred Method of Contact Cell Cell Preferred Mailing Address [address] [place] [address] [phone] Best Time to Visit or Contact 7-10 am Best Day to Visit or Contact No preference Appointment Reminders Other secured messaging Preferred Way to Send PHI Other secured messaging Able to Read Pakistani Able to read Pakistani Learning Style Pref Patient Demonstration Teaching Method [...] community Special Services and Resources Counseling Primary Administration Intern of Home Medication Self Medication Adherence Method Does not use any method Current DME at Home Yes has several items in home: lift chair, walker, cane, shower chair, motor scooter Currently Receiving Skilled Services No Skilled Service Needs Anticipated No B (more content not included)...[facility] 17-19-8062GvzzqtbszrJefferson Health Northeast Case Information Case Priority: None Programs: -- Referral Source: Software Licensing Specialist Referral Reason: Disease management Case Type: Chronic [...] deficiency Historical Asthma Procedure/Surgical History Colonoscopy (10/22/2023), Esophagogastroduodenoscopy (10/22/2023), Cardiac catheter (2005), MANDI BSO- Total abdominal hysterectomy and bilateral salpingo- oophorectomy (01/15/2004), Arthroscopy, History of lumbar spine surgery, [...] Assessments 01/07/24 12:27:00 Result Name Value Comment [facility] Program Enrollment Verbally agreed to receive [facility] services [facility] Written Consent Written consent in progress [facility] Verbal Consent By Self 01/07/24 11:00:00 Result Name Value Comment HIPPA Verified Type of Contact Telephone Information Given by Self CM Preferred Spoken Language Pakistani CM Preferred Written Language Pakistani Preferred Communication Mode Verbal Ability to Read/Write Able to read, Able to write Preferred Salutation MrsSantos Molder Punch Called No Preferred Method of Contact Cell Cell Preferred Mailing Address [address] [place] [address] [phone] Best Time to Visit or Contact 7-10 am Best Day to Visit or Contact No preference Appointment Reminders Other secured messaging Preferred Way to Send PHI Other secured messaging Able to Read Pakistani Able to read Pakistani Learning Style Pref Patient Demonstration Teaching Method [...] community Special Services and Resources Counseling Primary Administration Intern of Home Medication Self Medication Adherence Method Does not use any method Current DME at Home Yes has several items in home: lift chair, walker, cane, shower chair, motor scooter Currently Receiving Skilled Services No Skilled Service Needs Anticipated No Barriers to Care None Home Barriers None (more content not included)...[facility] SystemOffice Visit on 68-74-6350Edjdmo-up [id number] Jovana Xie Shirlene 1970 F Date Provider Department Center 04/15/2024 [facility] Family History Problem Relation Age of Onset Coronary artery disease Mother Other Mother Family Status - Relation Status Age at Mother Level of Service:76609 MS OFFICE/OUTPATIENT NEW MODERATE MDM 45 MINUTESNormal [facility] ClinicFafr[facility]isc[facility] Office/Clinic Noteon 01-50-9777Aqlgrd Medicine Office/Clinic NoteFafranciscan children's Medicine Office/Clinic Note HPI Staff Jovana is [...] she states was recently adjusted by her electronic imaging system operator to reduce medication load. Her history includes [...] level of consciousness appropriate for age, CN II- XII intact, motor strength equal & normal bilaterally, [...] advised to continue on blood thinners, and herblood pressure is well controlled. Routine monitoring of [...] DAY , # 90 tab(s), Refills(s) 0, [facility]acy:[id number], 161.5, cm, 12/27/23 14:02:00 EDT, Height/Length Dosing, 124.4, kg, 12/27/23 14:02:00 EDT, Weight Dosing Pt should be on a statin. Pt states she was recently taken off. Follow-up No qualifying data available Problem List/Past Medical History Ongoing Afib Atrial fibrillation, rapid Body mass index (BMI) of 45.0-49.9 in adult Chronic GERD Colon cancer screening Colon kiki (more content not included)...[facility] Health SystemComment on above:Result Comment: Electronically Signed By: Freeman AIKEN, Melissa Peterson.br\Date and Time Signed: 03/27/24 13:25 EDTCult,Genitalon 70-27-4364Ohkz,GenitalSpecimen Description .VAGINA Special Requests Site: Genital Culture NORMAL URO-GENITAL SAMMIE NEGATIVE FOR NEISSERIA GONORRHOEAE Report Status FINAL 03/10/2024NormalDetwiler Memorial HospitalComment on above: Performed By: #### GE #### [facility] Quu [address] [place] [address] [id number] Rx Specialist: Caio James MD [facility] [address] [address] Rx Specialist: Eulalia Montelongo [facility] Reporton [id number] report Cyto stain.thin prep Doc (Cvx/Vag)(NOTE) Path Number: [id number] DIAGNOSIS Imaged ThinPrep Pap - Vaginal (1 monolayer slide): Specimen Adequacy: Satisfactory for evaluation. Descriptive Diagnosis: Negative for intraepithelial lesion or malignancy. Cytotech Screener: EY Electronically Signed Out Usman BURKETT(ASCP) ey/03/20/2024 Source of Specimen: A: Imaged ThinPrep Pap - Vaginal (1 monolayer slide) HPV Reflex?......................HPV if Abnormal Clinical History Processing Lab: [place] [id number] Interpretation performed at [address] [phone] This Pap Test has been evaluated with the assistance of the [employer] Pap Test Imaging System. The Pap smear is a screening test primarily for squamous epithelial lesions, which is subject to both false negative and false positive results. Your patient should be reminded to consult you immediately if she experiences any suspicious signs or symptoms, regardless of her Pap smear result. GYNECOLOGIC CYTOLOGY REPORT Patient Name: JOVANA XIE [facility] Rec: [id number] [facility] ANATOMIC PATHOLOGY [address] [place] [address]. [place], [place] [address] NormalDetwiler Memorial HospitalCHEMISTRYOrdered By: SYSTEM SYSTEM on 66-40-3445Bcagoiy [Mass/Vol]3.5 g/dLNormal3.3 - 5.0 gm/dLRemisol ChemAlbumin DL <= 20 mg/L (U) [Mass/Vol]0.7 mg/dLNormal0.0 - 1.9 mg/dLRemisol Chem Albumin/Globulin [Mass ratio]1.2 {ratio}Normal1.1 - 2.2Remisol ChemALP [Catalytic activity/Vol]99 [iU]/dHigh21 - 98 Int._Unit/LRemisol ChemALT No additional P-5'-P [Catalytic activity/Vol]30 [iU]/dNormal6 - 46 Int._Unit/L Remisol ChemAnion gap [Moles/Vol]11 mmol/LNormal6 - 16 mEq/LRemisol ChemAST [Catalytic activity/Vol]20 [iU]/dNormal5 - 43 Int._Unit/LRemisol ChemBilirubin [Mass/Vol]0.5 mg/dLNormal0.0 - 1.1 mg/dLRemisol ChemCalcium [Mass/Vol]9.4 mg/dL Normal8.9 - 11.1 mg/dLRemisol ChemChloride [Moles/Vol]104 mmol/RWonrqf574 - 111 mmol/LRemisol ChemCO2 [Moles/Vol]26 mmol/OXmvqvx30 - 31 mmol/LRemisol Chem Creatinine [Mass/Vol]0.8 mg/dLNormal0.5 - 1.3 mg/dLRemisol FmnffWDZ68 mL/min/1.73 a3Nmyppe>=59mL/min/1.73 z5Mdriawq ChemGlobulin (S) [Mass/Vol]3.0 g/dLNormal1.4 - 4.0 gm/dLRemisol ChemGlucose [Mass/Vol]113 mg/wYHiptup22 - 199 mg/dLRemisol ChemPotassium [Moles/Vol]4.3 mmol/LNormal3.5 - 5.3 mmol/LRemisol ChemProtein [Mass/Vol]6.5 g/dLNormal6.0 - 7.8 gm/dLRemisol ChemSodium [Moles/Vol]137 mmol/IHxlgmm502 - 145 mmol/LRemisol ChemUrea nitrogen [Mass/Vol] 20 mg/dLNormal5 - 21 mg/dLRemisol ChemUrea nitrogen/Creatinine [Mass ratio]25 mg/rdMvfh79 - 20Remisol ChemCHEMISTRYOrdered By: Leny Crabtree on 09-25-2023 HbA1c (Bld) [Mass fraction]5.2 %Normal<=5.9%[facility] ChemAutoSSHEMATOLOGYOrdered By: SYSTEM SYSTEM on 51-51-7223Kxlfuarxx/100 WBC (Bld)0.3 %Normal0.0 - 2.0 %Remisol HemeBasophils/Leukocytes Auto (Bld) [Pure # fraction]0.0 E9/LNormal0.0 - 0.2 E9/LRemisol HemeEosinophils (Bld) [#/Vol]0.5 E9/LNormal0.0 - 0.5 E9/LRemisol HemeEosinophils/100 WBC (Bld)4.4 %Normal0.0 - 8.0 %Remisol HemeErythrocyte distribution width (RBC) [Ratio]15.2 %High10.9 - 14.2 %Remisol HemeHematocrit (Bld) [Volume fraction]38.6 %Lnjwua16.0 - 46.0 %Remisol HemeHemoglobin (Bld) [Mass/Vol]12.7 g/zLIckczn09.0 - 16.0 gm/dLRemisol HemeLymphocytes (Bld) [#/Vol] 2.5 E9/LNormal1.0 - 4.0 E9/LRemisol HemeLymphocytes/100 WBC (Bld)23.7 %Normal 14.0 - 50.0 %Remisol HemeMCH (RBC) [Entitic mass]29.0 jeXpkiaj11.0 - 34.0 pg Remisol HemeMCHC (RBC) [Mass/Vol]33.0 g/rSGnsdix00.4 - 36.0 gm/dLRemisol HemeMCV (RBC) [Entitic vol]88.1 aWDknsac52.0 - 100.0 fLRemisol HemeMonocytes (Bld) [#/Vol]0.6 E9/LNormal0.2 - 1.0 E9/LRemisol HemeMonocytes/100 WBC (Bld)5.8 % Normal4.0 - 14.0 %Remisol HemeNeutrophils (Bld) [#/Vol]7.0 E9/LNormal2.0 - 7.5 E9/LRemisol HemeNeutrophils/100 WBC (Bld)65.8 %Ncleht82.0 - 75.0 %Remisol Heme Rsdnwoeq364.0 E9/QYlfhmw126.0 - 500.0 E9/LRemisol HemePlatelet mean volume (Bld) [Entitic vol]8.9 fLNormal6.4 - 10.8 fLRemisol HemeRBC (Bld) [#/Vol]4.4 E12/L Normal4.3 - 5.9 E12/LRemisol HemeWBC corrected for nucl RBC Auto (Bld) [#/Vol] 10.6 E9/LNormal4.0 - 11.0 E9/LRemisol HemeCT LUNG CANCER SCREENINGon 10-27-2022 CT LUNG CANCER SCREENINGEXAMINATION: CT LUNG CANCER SCREENING HISTORY: Nicotine dependence [...] Electronically authenticated by: ALEM PASCUAL Date: 2022-10-27 09:10[facility] NorthHEMOGLOBINon [id number] (Bld) [Mass/Vol]14.8 g/dL Rrqlxh57.0-16.0The [facility]ita Health SystemComment on above:Performed By: #### HGB #### [facility] [address] [place] [address] [address] Eron SpencerXR hand BI 3Von [id number] hand BI 3VFIRELANDS [facility] SnapMD Other XR hand BI 3VFRSt. Anthony's Hospital SnapMD Other XR hand BI [id number] [facility] SnapMD Other XR hand BI 3VSandnorah [facility]12413YlyqvSwedish Medical Center Issaquah SnapMD Other XR hand BI 3VXRSaint Thomas Hickman [facility] SnapMD Other XR hand BI 3VSignedMiami Hel[employer] Other XR hand BI 3VPatient: Jovana Xie MR#: [id number] [facility] SnapMD Other XR hand BI [id number] [place] [address] SnapMD Other XR hand BI 3VDOB: 1970 Acct:[id number] Hel[employer] Other XR hand BI 3VAge/Sex: 52 / F ADM Date: 10/11/22[place] [employer] Other XR hand BI 3VLoc: SOXD Room: Type: [facility] Helium Other XR hand BI 3VAttending Dr: Charu Pham [facility] Helium Other xr hand BI 3VCopies to: Charu Pham MDMiami Helium Other XR hand BI 3VOrdering Provider: Charu Pham MD [place] [employer] Other xr hand BI 3VDate of Service: 10/11/22[place] [employer] Other XR hand BI 3VAccession #: ([id number]) XR/XR hand BI 3V: Right hand [facility] Helium Other XR hand BI 3VBILATERAL HANDS - 4 views eachMiami Helium Other XR hand BI 3VCOMPARISON: NoneMiami Helium Other xr hand BI 3VCLINICAL DATA: Bilateral hand pain, greatest at the right first carpometacarpal joint. Numbness atMiami [employer] Other xr hand BI 3Vthe left third through fifth fingers. First Coverage Other xr hand BI 3VAP, lateral, oblique and supplemental AP views of the thumbs were obtained. There are no acuteMiami [employer]ium Other XR hand BI 3Vfractures or dislocation. No disproportionate joint space narrowing or prominent hypertrophy isMi[place] [employer] Other xr hand BI 3Vseen. There are no focal soft tissue abnormalities.First Cover[employer] Other xr hand BI 3VORDER #: [id number] XR/XR hand BI 3VMiami Helium Other xr hand BI 3VIMPRESSION:First Coverage Other xr hand BI 3VNO ACUTE BONY FINDINGS.First Cover[employer] Other xr hand BI 3VImpression dictated by: Daina Downs M.D.10/11/2022 2:43 [facility] Hel[employer] Other xr hand BI 3VDictation Location: [id number] Hel[employer] Other xr hand BI 3VTranscribed By: DEANGELO 10/11/[address] [place] [address] Hel[employer] Other xr hand BI 3VDictated By: Daina Downs MD 10/11/[address] [place] [address] Hel[employer] Other xr hand BI 3VSigned By:First Cover[employer] Other xr hand BI 3V10/11/22 [facility] Other xr cerv spine AP/LAT/FLX/EXTon 52-27-0626CR cerv spine AP/LAT/FLX/EXTUK Healthcare Helium Other xr cerv spine AP/LAT/FLX/EXTCedars-[facility] Helium Other xr cerv spine AP/LAT/FLX/CFB6[address] [place] [address] Hel[employer] Other xr cerv spine AP/LAT/FLX/EXTSandessexsachi [address] Helium Other xr cerv spine AP/LAT/FLX/EXTXRManatee Memorial Hospital Helium Other xr cerv spine AP/LAT/FLX/EXTSiSSM [facility] Helium Other xr cerv spine AP/LAT/FLX/EXTPatient: Jovana Xie MR#: [id number] Hel[employer] Other xr cerv spine AP/LAT/FLX/ZHH282Lidiz Helium Other xr cerv spine AP/LAT/FLX/EXTDOB: 1970 Acct:[id number] Helium Other xr cerv spine AP/LAT/FLX/EXTAge/Sex: 52 / F ADM Date: 06/21/22[place] [employer] Other xr cerv spine AP/LAT/FLX/EXTLoc: SOXD Room: Type: [facility] Hel[employer] Other xr cerv spine AP/LAT/FLX/EXTAttending Dr: Charu Pham MDMiami Helium Other xr cerv spine AP/LAT/FLX/EXTCopies to: Charu Pham MDMiami [employer] Other xr cerv spine AP/LAT/FLX/EXTOrdering Provider: Charu Pham MDMiami [employer] Other XR cerv spine AP/LAT/FLX/EXTDate of Service: 06/21/22 First Cover[employer] Other xr cerv spine AP/LAT/FLX/EXTAccession #: ([id number]) XR/XR cerv spine AP/LAT/FLX/EXT: Numbness of left handNort Helium Other xr cerv spine AP/LAT/FLX/EXTAP with lateral neutral, flexion extension views of the cervical spineNoFocaloid Technologies Private Limited Other xr cerv spine AP/LAT/FLX/EXTHISTORY: Cervical spine pain. Numbness and tingling of the armsNoKangou Other xr cerv spine AP/LAT/FLX/EXTCOMPARISON: NoneNomissouri baptist hospital-sullivan Helium Other xr cerv spine AP/LAT/FLX/EXTCervical lordosis is adequate.First Coverage Other xr cerv spine AP/LAT/FLX/EXTNo acute cervical spine fracture identified.First Coverage Other xr cerv spine AP/LAT/FLX/EXTNo cervical spine listhesis identified.First Coverage Other xr cerv spine AP/LAT/FLX/EXTDisc spaces are adequate. First Coverage Other xr cerv spine AP/LAT/FLX/EXTFacets are in adequate alignment.First Coverage Other xr cerv spine AP/LAT/FLX/EXTNo hypermobility with flexion and extension views.First Coverage Other XR cerv spine AP/LAT/FLX/EXTThe dens is intact.First Coverage Other xr cerv spine AP/LAT/FLX/EXTThe craniocervical junction is unremarkable.First Coverage Other xr cerv spine AP/LAT/FLX/EXTNo paraspinal soft tissue abnormality seen. Benign posterior soft tissue calcification at C7 level.First Coverage Other xr cerv spine AP/LAT/FLX/EXTORDER #: [id number] XR/XR cerv spine AP/LAT/FLX/EXTMiami Helium Other xr cerv spine AP/LAT/FLX/EXTIMPRESSION: No hypermobility. No acute cervical spine fracture.First Coverage Other xr cerv spine AP/LAT/FLX/EXTImpression dictated by: Devin Norwood M.D.06/21/2022 3:15 [facility] Helium Other xr cerv spine AP/LAT/FLX/EXTDictation Location: [address] Helium Other xr cerv spine AP/LAT/FLX/EXTTranscribed By: [facility] 06/21/[address] [place] [address] Hel[employer] Other xr cerv spine AP/LAT/FLX/EXTDictated By: Devin Norwood DO 06/21/[address] [place] [address] Helium Other xr cerv spine AP/LAT/FLX/EXTSigned By:First Coverage Other xr cerv spine AP/LAT/FLX/EXT06/21/22 [facility] Other pap ACOG PANEL 2: 30 to 65on 12-06-2021..NormalThe [facility] SystemComment on above:Result Comment: Performed at: WBPerformed By: #### [id number] #### [facility] [address] [address] [address] Eron Barth Gdln ACOG Mfgicxk21-26AnxsnzYdpProMedica Fostoria Community HospitalComment on above:Performed By: #### [id number] #### [facility] [address] [address] [address] Eron SpencerDIAGNOSIS:CommentSelect Medical Specialty Hospital - Cincinnati NorthComment on above: Result Comment: NEGATIVE FOR INTRAEPITHELIAL LESION OR MALIGNANCY. THIS SPECIMEN WAS RESCREENED PART OF OUR HEARING AID SPECIALIST PROGRAM. Performed at: WBPerformed By: #### [id number] #### [facility] [address] [place] [address] Dr. Eron SpencerHPV AptimaNegativeNormalNegativeThe [facility] on above:Result Comment: This nucleic acid amplification test detects fourteen high-risk HPV types (16,18,31,33,35,39,45,51,52,56,58,59,66,68) without differentiation. Performed at: =GPerformed By: #### [id number] #### [facility] [address] [place] [address] Dr. Eron SpencerMethodology:CommentFlower Hospital on above: Result Comment: This liquid based ThinPrep(R) pap test was screened with the use of an image guided system. Performed at: WBPerformed By: #### [id number] #### [place] [address] Dr[address] Eron SpencerNote:CommentFlower Hospital on above:Result Comment: The Pap smear is a screening test designed to aid in the detection of premalignant and malignant conditions of the uterine cervix. It is not a diagnostic procedure and should not be used as the sole means of detecting cervical cancer. Both false-positive and false-negative reports do occur. . Performed at: WBPerformed By: #### [id number] #### [facility] [address] [place] [address] Dr. Eron SpencerPerformed by:CommentFlower Hospital on above: Result Comment: Kimberly Duarte, Commercial Loan Processor (ASCP) Performed at: WBPerformed By: #### [id number] #### [facility] [address] [place] [address] Dr. Eron SpencerQC reviewed by:[facility] on above:Result Comment: Bernice Velazquez, Supervisory Commercial Loan Processor (ASCP) Performed at: WBPerformed By: #### [id number] #### [facility] [address] [place] [address] Dr. Eron Shineimenenita adequacy:CommentNoProMedica Fostoria Community HospitalCommunson healthcare grayling hospital on above:Result Comment: Satisfactory for evaluation. No endocervical component is identified. Performed at: WBPerformed By: #### [id number] #### [facility] [address] [place] [address] Dr. Eron SpencerMG MAMM SCREEN 3D ROMI CADon [id number] MAMM SCREEN 3D ROMI CAD Patient: JOVANA IXE Exam Date: 12/01/2021 : 1970 Gender:F Ordering : DR ELVIA SWEENEY . Admission #: [id number] Family : Order #: [id number] CLICK HERE TO VIEW EXAM RADIOLOGY REPORT PROCEDURE: MAMMOGRAM SCREENING 3D BILATERAL CAD COMPARISON: DIGITIZED_MAMMO, 04/15/2010. MG MAMM SCREEN ROMI W CAD, 09/19/2016. INDICATIONS: Screening mammography Calculator Name NCI Breast Cancer Risk Assessment Tool 5 Year Breast Cancer Risk 0.90% Lifetime Breast Cancer Risk 8.80% Personal Breast Cancer No Personal Ovarian Cancer No Treatments None Family Cancers None LOCATION: [facility] BREAST COMPOSITION: Heterogeneously dense,which may obscure small [...] by: Eulalia Sanderson MD on 12/01/2021 at 11:45NoProMedica Fostoria Community HospitalCB AUTO DIFFon 18-60-1196HZGE #0.0 103/ulNormal0.0-0.1The [facility] SystemComment on above:Performed By: #### LIPID, CMP #### [facility] [address] [address] [address] Eron SpencerBasophils/100 WBC (Bld)0.4 %Normal0.2-2.0[facility] Comment on above:Performed By: #### LIPID, CMP #### [facility] [address] [place] [address] Dr. Eron Lombardi #0.2 103/ulNormal0.0-0.7The [facility] SystemComment on above: Performed By: #### LIPID, CMP #### [facility] [address] [place] [address] Dr. Eron Rhoadesosinophils/100 WBC (Bld)2.0 %Normal0.9-7.0[facility] Comment on above:Performed By: #### LIPID, CMP #### [facility] [address] [place] [address] Dr. Eron Herrerathrocyte distribution width (RBC) [Ratio]14.0 %Jahoiu23.0-15.0 The [facility] SystemComment on above:Performed By: #### LIPID, CMP #### [facility] [address] [place] [address] Dr. Eron SpencerHematocrit (Bld) [Volume fraction]46.7 %Iquuts71.0-48.0The [facility] SystemComment on above:Performed By: #### LIPID, CMP #### [facility] [address] [place] [address] Dr. Eron SpencerHemoglobin (Bld) [Mass/Vol]15.3 g/hKGpicnz55.0-16.0The [facility] SystemComment on above:Performed By: #### LIPID, CMP #### [facility] [address] [place] [address] Dr. Eron Sauceda #0.03 10e3/ulNormal0.00-0.03The [facility] SystemComment on above:Performed By: #### LIPID, CMP #### [facility] [address] [place] [address] Dr. Eron Sauceda %0.3 %Normal0.0-0.5The [facility] SystemComment on above: Performed By: #### LIPID, CMP #### [facility] [address] [place] [address] Dr. Eron Augustin #2.7 103/ulNormal1.2-3.8The [facility] SystemComment on above:Performed By: #### LIPID, CMP #### [facility] [address] [place] [address] Dr. Eron Moraleshocytes/100 WBC (Bld)29.7 %Fqwvag98.5-60.0The [facility] SystemComment on above:Performed By: #### LIPID, CMP #### [facility] [address] [place] [address] Dr. Eron Chan DIFF REQNONormalThe [facility] Health SystemComment on above: Performed By: #### LIPID, CMP #### [facility] [address] [place] [address] Dr. Eron Guillen (RBC) [Entitic mass]27.7 slXjlqic35.7-34.0The [facility] SystemComment on above:Performed By: #### LIPID, CMP #### [facility] [address] [place] [address] Dr. Eron Guillen (RBC) [Mass/Vol]32.8 g/qTZotcvn83.9-35.2The [facility] SystemComment on above:Performed By: #### LIPID, CMP #### [facility] [address] [place] [address] Dr. Eron Guillen (RBC) [Entitic vol]84.6 rQRfnoyn13.0-99.0The [facility] SystemComment on above:Performed By: #### LIPID, CMP #### [facility] [address] [place] [address] Dr. Eron Owen #0.6 103/ulNormal0.3-0.8The [facility] SystemComment on above:Performed By: #### LIPID, CMP #### [facility] [address] [place] [address] Dr. Eron Fernándezocytes/100 WBC (Bld)7.0 %Normal1.7-12.0The [facility] Comment on above:Performed By: #### LIPID, CMP #### [facility] [address] [place] [address] Dr. Eron Bush #5.4 103/ulNormal1.4-6.5The Corey Hospitalment on above:Performed By: #### LIPID, CMP #### [facility] [address] [address] [address] Eron Brownutrophils/100 WBC (Bld)60.6 %Rrhthy17.0-75.0The [facility] SystemComment on above:Performed By: #### LIPID, CMP #### [facility] [address] [place] [address] Dr. Eron SpencerPlatelet mean volume (Bld) [Entitic vol]10.1 fLNormal9.5-13.5The [facility] SystemComment on above:Performed By: #### LIPID, CMP #### [facility] [address] [place] [address] Dr. Eron SpencerPLT297 103/ulNbjerd511-569Kly [facility] on above: Performed By: #### LIPID, CMP #### [facility] [address] [place] [address] Dr. Eron SpencerRBC5.52 106/ulCritically high4.20-5.40The [facility] Comment on above:Performed By: #### LIPID, CMP #### [facility] [address] [place] [address] Dr. Eron SpencerWBC9.0 103/ulNormal4.0-11.0The [facility] on above: Performed By: #### LIPID, CMP #### [facility] [address] [place] [address] Dr. Eron SpencerGLYCOHEMOGLOBIN A1Con 70-48-1096GFT RECOMMENDATIONSEE BELOWNormal The [facility] SystemCommunson healthcare grayling hospital on above:Result Comment: ADA RECOMMENDED LIMIT 4.0 - 6.0 ADA THERAPEUTIC TARGET < 7.0 ACTION SUGGESTED > 7.0Performed By: #### A1C #### [facility] [address] [place] [address] Dr. Eron SpencerGlucose [Mass/Vol]117 mg/dLSelect Medical Specialty Hospital - Cincinnati NorthComment on above:Performed By: #### A1C #### [facility] [address] [address] [address] Eron SpencerHbA1c (Bld) [Mass fraction]5.7 %Normal4.5-6.2Holzer HospitalComment on above:Performed By: #### A1C #### [facility] [address] [address] [address] Eron GuajardoID PROFILEon 54-38-2458TWWX-HDL RATIO NORMSEE [facility] - CincinnatiComment on above:Result Comment: 3.3 - 4.4 LOW RISK 4.4 - 7.1 AVERAGE RISK 7.1 - 11.0 MODERATE RISK >11.0 HIGH RISKPerformed By: #### LIPID, CMP #### [facility] [address] [place] [address] Dr. Eron SpencerCholesterol [Mass/Vol]187 mg/dLNormal<=200The [facility] Comment on above:Performed By: #### LIPID, CMP #### [facility] [address] [address] [address] Eron Gonzalezesterol in HDL [Mass/Vol]42 mg/xJTcbvnd51-44Lpo [facility] SystemCommunson healthcare grayling hospital on above:Performed By: #### LIPID, CMP #### [facility] [address] [address] [address] Eron SpencerCholesterol in LDL [Mass/Vol]127.4 mg/dLSelect Medical Specialty Hospital - Cincinnati NorthComment on above:Performed By: #### LIPID, CMP #### [facility] [address] [address] [address] Eron Gonzalezesterol.total/Cholesterol in HDL [Mass ratio]4.5 {ratio} NormalThe [facility] Health SystemComment on above:Performed By: #### LIPID, CMP #### [facility] [address] [address] [address] Eron SpencerHDL NORMAL> or = 60 mg/dl - LOW CARDIOVASCULAR RISK <40 mg/dl - HIGH CARDIOVASCULAR RISKNoProMedica Fostoria Community HospitalComment on above:Performed By: #### LIPID, CMP #### [facility] [address] [place] [address] Dr. Eron Choudhury CALC NORMALSEE BELOWSelect Medical Specialty Hospital - Cincinnati NorthComment on above:Result Comment: <100 mg/dl OPTIMAL 100 - 129 mg/dl NEAR OR ABOVE OPTIMAL 130 - 159 mg/dl BORDERLINE HIGH 160 - 189 mg/dl HIGH >190 mg/dl VERY HIGH Performed By: #### LIPID, CMP #### [facility] [address] [place] [address] Dr. Eron SpencerTriglyceride [Mass/Vol]88 mg/dLNormal<=150The [facility] Comment on above:Performed By: #### LIPID, CMP #### [facility] [address] [place] [address] Dr. Eron TamezLDL CALC17.6 mg/dLNoProMedica Fostoria Community HospitalComment on above: Performed By: #### LIPID, CMP #### [facility] [address] [place] [address] Dr. Eron SpencerPROF 14(COMP METB)on 06-21-2277Qpmryvk [Mass/Vol]3.3 g/dL Critically low3.4-5.0The [facility] SystemCommunson healthcare grayling hospital on above:Performed By: #### LIPID, CMP #### [facility] [address] [place] [address] Dr. Eron SpencerAlbumin/Globulin [Mass ratio]0.8 {ratio}NormalThe [facility] SystemComment on above:Performed By: #### LIPID, CMP #### [facility] [address] [place] [address] Dr. Eron Pabon [Catalytic activity/Vol]132 U/LCritically umlw48-247Kam [facility] on above:Performed By: #### LIPID, CMP #### [facility] [address] [place] [address] Dr. Eron Guy [Catalytic activity/Vol]79 U/LCritically xmji56-62Rnv Lizz HospitalComment on above:Performed By: #### LIPID, CMP #### [facility] [address] [address] [address] Eron Jaquezon gap [Moles/Vol]15.4 mmol/LNormalHolzer Hospital Comment on above:Performed By: #### LIPID, CMP #### [facility] [address] [address] [address] Eron SpencerAST [Catalytic activity/Vol]44 U/LCritically ywfl47-92Hiw [facility] SystemComment on above:Performed By: #### LIPID, CMP #### [facility] [address] [address] [address] Eron SpencerBilirubin [Mass/Vol]0.6 mg/dLNormal0.2-1.0[facility] Comment on above:Performed By: #### LIPID, CMP #### [facility] [address] [address] [address] Eron SpencerCalcium [Mass/Vol]9.0 mg/dLNormal8.5-10.1[facility] Comment on above:Performed By: #### LIPID, CMP #### [facility] [address] [address] [address] Eron SpencerChloride [Moles/Vol]102 mmol/IGikutv59-876AcqHolzer Hospital Comment on above:Performed By: #### LIPID, CMP #### [facility] [address] [address] [address] Eron SpencerCO2 [Moles/Vol]24.5 mmol/KVifphh77.0-32.0The [facility] Comment on above:Performed By: #### LIPID, CMP #### [facility] [address] [address] [address] Eron SpencerCreatinine [Mass/Vol]0.90 mg/dLNormal0.55-1.02The Corey Hospitalment on above:Performed By: #### LIPID, CMP #### [facility] [address] [address] [address] Eron RhoadesGFR-AF RUSSIAN>80Normal>=60The Lizz HospitalComment on above:Performed By: #### LIPID, CMP #### [facility] [address] [address] [address] Eron Holly-NON AF RUSSIAN>66Normal>=60The [facility] Health SystemComment on above:Performed By: #### LIPID, CMP #### [facility] [address] [address] [address] Eron SpencerGlobulin (S) [Mass/Vol]4.1 g/dLNormalThe [facility] SystemComment on above:Performed By: #### LIPID, CMP #### [facility] [address] [address] [address] Eron SpencerGlucose [Mass/Vol]96 mg/lUZrzhga87-982Bog [facility] Comment on above:Performed By: #### LIPID, CMP #### [facility] [address] [address] [address] Eron SpencerPotassium [Moles/Vol]3.9 mmol/LNormal3.5-5.1[facility] Comment on above:Performed By: #### LIPID, CMP #### [facility] [address] [address] [address] Eron SpencerProtein [Mass/Vol]7.4 g/dLNormal6.4-8.2[facility] Comment on above:Performed By: #### LIPID, CMP #### [facility] [address] [address] [address] Eron SpencerSodium [Moles/Vol]138 mmol/ZLhisbg598-415EqzHolzer Hospital Comment on above:Performed By: #### LIPID, CMP #### [facility] [address] [address] [address] Eron SpencerUrea nitrogen [Mass/Vol]12.0 mg/dLNormal7.0-18.0The [facility] SystemComment on above:Performed By: #### LIPID, CMP #### [facility] [address] [address] [address] Eron SpencerUrea nitrogen/Creatinine [Mass ratio]13.3 mg/mgNormalThe Lizz HospitalComment on above:Performed By: #### LIPID, CMP #### [facility] [address] [place] [address] Dr. Eron SpencerVITAMIN D 25 OHon 97-83-7627LGL D 25-OH35.6 ng/mLNormalHolzer HospitalComment on above:Performed By: #### LIPID, CMP #### [facility] [address] [place] [address] Dr. Eron Ga RANGESSEE BELOWSelect Medical Specialty Hospital - Cincinnati NorthComment on above: Result Comment: <20 ng/mL Vit D deficient 20 - <30 ng/mL Vit D insufficient 30 - 100 ng/mL Vit D sufficient >100 ng/mL Potential ToxicityPerformed By: #### LIPID, CMP #### [facility] [address] [place] [address] Dr. Eron SpencerGROUP A STREP CULTUREon 11-25-2021. pyogenes Ag Ql (Unsp spec) Culture Observations: NEGATIVE FOR GROUP A STREPTOCOCCUS.NormalHolzer HospitalComment on above: Performed By: #### LIPID, CMP #### [facility] [address] [place] [address] Dr. Eron SpencerSTREPT SCREENon 54-87-5708EKOCJ SCREEN ANegativeNormalNEGATIVEHolzer HospitalCommunson healthcare grayling hospital on above:Performed By: #### SSCRN, GRASTCX #### [facility] [address] [place] [address] Dr. Eron SpencerXR CHEST 1 Von 19-38-1646EI CHEST 1 VEXAM: XR CHEST 1 V HISTORY: COUGH EXAM: XR CHEST 1 V INDICATION: 51 years old Female COUGH COMPARISON: September 14, 2021 FINDINGS: The cardiac silhouette is normal. There is no pulmonary edema. The lungs are clear. There is no pneumonia. There is no pneumothorax. There is no abnormal foreign body. IMPRESSION: There is no acute abnormality. Electronically authenticated by: CAITLYN WATTS Date: 2021-11-25 15:41[facility] NorthCovid-19 PCR (CVDTBH)on 39-68-6914WIEH-CoV-2 (COVID-19) RNA SAVANNAH+probe Ql (Unsp spec)Not detectedNormalNOT DETECTEDThe [facility] Comment on above:Result Comment: This test is not yet approved or cleared by the [place] FDA. When there are no FDA-approved or cleared tests available, and other criteria are met, FDA can make tests available under an emergency access mechanism called an Emergency Use Authorization (EUA). The EUA for this test is supported by the [place] of Health and Human Service's (HHS's) declaration that circumstances exist to justify the emergency use of in vitro diagnostics for the detection and/or diagnosis of the virus that causes COVID- 19. This EUA will remain in effect (meaning [...] of clinical signs and symptoms consistent with SARS-CoV-2.Performed By: #### LIPID, CMP #### [facility] [address] [place] [address] Dr. Eron SpencerGlucose Glucometer (dC) [Mass/Vol]Ordered By: Charu Pham on 16-29-5876Aklfsge [Mass/Vol]97 mg/dLTrihealth Mccullough-Hyde Memorial HospitalComment on above:Random Glucose Reference Range is dependent on time and content of last meal. Glucose of more than 200 mg/dL in a nonstressed, ambulatory subject supports the diagnosis of Diabetes Mellitus.COVID-19 Positive/NegativeOrdered By: Charu Pham on 49-86-4301ZMRN-CoV-2 (COVID-19) N gene SAVANNAH+probe Ql (Resp) NegativeNegativeTrihealth Mccullough-Hyde Memorial HospitalComment on above:Testing for SARS-CoV-2 by RT-PCRThis test was developed and its performance characteristics determined by [employer] ([employer]) and validated at the [facility]. This test has not been FDA cleared or approved. This test has been authorized by FDA under an Emergency Use Authorization (EUA). This test has been validated in accordance with the FDA's Guidance Document (Policy for Diagnostics Testing in Laboratories Certified to Perform High Complexity Testing under CLIA prior to Emergency Use Authorization for Coronavirus Disease- 2019 during the Public Health Emergency) issued on September 04, 2019. This test is only authorized for the duration of time the declaration that circumstances exist justifying the authorization of the emergency use of in vitro diagnostic tests for detection of SARS-CoV-2 virus and/or diagnosis of COVID-19 infection under section 564(b)(1) of the Act, 21 U.S.C. 360bbb-3(b)(1), unless the authorization is terminated or revoked sooner.Basophils Auto (Bld) [#/Vol] Ordered By: Charu Pham on 92-86-7573Zrmftmgve (Bld) [#/Vol]0.1 10*3/uL 0.0-0.2FThe Christ HospitalBasophils/100 WBC Auto (Bld)Ordered By: Charu Pham on 77-45-5868Xembidsti/100 WBC (Bld)0.6 %[facility] HospitalBlood hemoglobin measurement (mass/volume)Ordered By: Charu Pham on 82-69-4406Bglzgjkufk (Bld) [Mass/Vol]13.7 g/dL11.8-15.4FThe Christ HospitalBlood leukocytes automated count (number/volume)Ordered By: Charu Pham on 08-55-3519YCU (Bld) [#/Vol]9.4 10*3/uL4.5-11.0[facility] HospitalBody fluid albumin measurement (mass/volume)Ordered By: Charu Pham 49-49-8308Zngvrxi (Body fld) [Mass/Vol]3.0 g/dL3.2-5.5 [facility] HospitalCreatinine and Glomerular filtration rate.predicted panel (S/P/Bld)Ordered By: Charu Pham on 48-52-5369Ilfyboksdc [Mass/Vol]0.82 mg/dL0.44-1.03[facility] Memorial HospitalEosinophils Auto (Bld) [#/Vol]Ordered By: Charu Pham on 68-42-9789Vyjjnnszjbx (Bld) [#/Vol] 0.3 10*3/uL0.0-0.45[facility] HospitalEosinophils/100 WBC Auto (Bld)Ordered By: Charu Pham on 45-52-4707Llbewbvwene/100 WBC (Bld)3.1 % [facility] HospitalErythrocyte distribution width Auto (RBC) [Ratio]Ordered By: Charu Pham on 39-32-3058Mktghicnwpk distribution width (RBC) [Ratio]15.0 %11.9-15.3FThe Christ HospitalEstimated glomerular filtration rate (GFR) non- AmericanOrdered By: Charu Pham on 28-78-9219JVX/1.73 sq M.predicted among non-blacks MDRD (S/P/Bld) [Vol rate/Area]> 60 mL/MinTrihealth Mccullough-Hyde Memorial HospitalGlobulin Calc (S) [Mass/Vol]Ordered By: Charu Pham on 37-83-3808Pefefaax (S) [Mass/Vol]2.9 g/dLTrihealth Mccullough-Hyde Memorial HospitalHematocrit Auto (Bld) [Volume fraction] Ordered By: Charu Pham on 38-56-8996Gmohakiehp (Bld) [Volume fraction]40.8 % 34.0-46.4FThe Christ HospitalLaboratory - Hematology and Cell countsOrdered By: Charu Pham on 62-75-2738Percozhny RBC/100 WBC (Bld) [Ratio]0.0 %0-0.5FThe Christ HospitalLymphocytes Auto (Bld) [#/Vol] Ordered By: Charu Pham on 48-32-9616Dqqfgdxuvjd (Bld) [#/Vol]2.3 10*3/uL 1.00-4.8[facility] HospitalLymphocytes/100 WBC Auto (Bld)Ordered By: Charu Pham on 23-97-7650Xileutdaulp/100 WBC (Bld)24.5 %[facility] Auto (RBC) [Entitic mass]Ordered By: Charu Pham on 93-17-9943VMR (RBC) [Entitic mass]28.4 pg24.7-34.3FThe Christ HospitalMC Auto (RBC) [Mass/Vol]Ordered By: Charu Pham on 27-74-0068FBYU (RBC) [Mass/Vol]33.6 g/dL32.0-35.0[facility] HospitalMCV Auto (RBC) [Entitic vol]Ordered By: Charu Pham on 27-66-8063QRS (RBC) [Entitic vol]84.6 wW06-453AuukiggkrTrihealth Mccullough-Hyde Memorial HospitalMonocytes Auto (Bld) [#/Vol] Ordered By: Charu Pham on 78-45-1673Jobdfdmjz (Bld) [#/Vol]0.9 10*3/uL 0.0-0.8[facility] HospitalMonocytes/100 WBC Auto (Bld)Ordered By: Charu Pham on 78-31-8162Irwwvbqpj/100 WBC (Bld)9.7 %[facility] HospitalNeutrophils Auto (Bld) [#/Vol]Ordered By: Charu Pham on 11-19-9471Zljjzbesnfc (Bld) [#/Vol]5.9 10*3/uL1.8-7.7FThe Christ HospitalNeutrophils/100 WBC Auto (Bld)Ordered By: Charu Pham on 09-15-2021 Neutrophils/100 WBC (Bld)62.1 %[facility] HospitalNo Panel InformationOrdered By: Charu Pham on 50-68-6179Oorhnxdzq GFR ()> 60 mL/MinTrihealth Mccullough-Hyde Memorial HospitalComment on above:GFR estimated reference range: According to KDOQI guidelines, <60 ml/min/1.73m2 is sufficient todiagnose a patient with chronic kidney disease.Pharmacy Creatinine Clearance (ChemN/[facility] HospitalPlatelet mean volume Auto (Bld) [Entitic vol]Ordered By: Charu Pham on 18-27-6944Lvwvrdiz mean volume (Bld) [Entitic vol]9.1 fL6.3-10.7FThe Christ HospitalPlatelets Auto (Bld) [#/Vol]Ordered By: Charu Pham on 79-73-5754Bovpwaqfi (Bld) [#/Vol]285 10*3/oD441-392OhmwhbemdTrihealth Mccullough-Hyde Memorial HospitalProtein [Mass/volume] in Serum or PlasmaOrdered By: Charu Pham on 43-94-8459Jzlxgyd [Mass/Vol]5.9 g/dL6.1-7.9 [facility] HospitalRBC Auto (Bld) [#/Vol]Ordered By: Charu Pham on 68-54-9792AUB (Bld) [#/Vol]4.82 10*6/uL3.60-5.00[facility] Hospitalerum or plasma alanine aminotransferase measurement without P-5'-P (enzymatic activiOrdered By: Charu Pham on 91-78-7528NSZ No additional P-5'-P [Catalytic activity/Vol]59 U/X37-55OuoxjnlsvGeorgetown Behavioral Hospitalerum or plasma albumin/globulin mass ratioOrdered By: Charu Pham on 34-12-3061Yulaybl/Globulin [Mass ratio]1.0 {ratio}[facility] Hospitalerum or plasma alkaline phosphatase measurement (enzymatic activity/volume)Ordered By: Charu Pham on 29-21-3645XUA [Catalytic activity/Vol]90 U/G82-23WvwqohuokGeorgetown Behavioral Hospitalerum or plasma aspartate aminotransferase measurement (enzymatic activity/volume)Ordered By: Charu Pham on 39-51-8914SQL [Catalytic activity/Vol]40 U/E97-43MslynfavtGeorgetown Behavioral Hospitalerum or plasma calcium measurement (mass/volume)Ordered By: Charu Pham 45-58-2406Yvxkjly [Mass/Vol]8.9 mg/dL8.2-10.2FDunlap Memorial Hospitalerum or plasma chloride measurement (moles/volume) Ordered By: Charu Pham 06-41-7011Eybyurgy [Moles/Vol]105 mmol/L95-114 [facility] Hospitalerum or plasma glucose measurement (mass/volume)Ordered By: Charu Pham on 20-21-8733Osuwhup [Mass/Vol]94 mg/dL 70-100[facility] HospitalComment on above:ADA recommended reference rangeRandom Glucose Reference Range is dependent on time and content of last meal. Glucose of more than 200 mg/dL in a nonstressed, ambulatory subject supports the diagnosisof Diabetes Mellitus.Serum or plasma potassium measurement (moles/volume)Ordered By: Charu Pham on 95-15-6898Hwzcomaur [Moles/Vol]4.3 mmol/L3.5-5.1FDunlap Memorial Hospitalerum or plasma sodium measurement (moles/volume)Ordered By: Charu Pham on 80-50-5323Rfdjrl [Moles/Vol]140 mmol/A701-335WwdnzuplhGeorgetown Behavioral Hospitalerum or plasma total bilirubin measurement (mass/volume)Ordered By: Charu Pham on 61-71-4146Dkgucxguu [Mass/Vol]0.6 mg/dL0.3-1.2FThe Christ Hospital Serum or plasma total carbon dioxide measurement (moles/volume)Ordered By: Charu Pham on 82-99-2603GX6 [Moles/Vol]25.2 mmol/L22.0-30.0[facility] Hospitalerum or plasma urea nitrogen measurement (mass/volume) Ordered By: Charu Pham on 22-73-1488Gnlx nitrogen [Mass/Vol]11 mg/dL9-23 [facility] HospitalCNPNon 88-82-8903PZVIVqjtiesag (JACOBO) JOVANA XIE ([id number]) 1970 F Date Time Provider Department 04/26/21 MAEGAN ANGULO During your visit today, we recorded the following information about you: Calli Live 04/26/2021 10:21 AM Signed Patient called to follow up on records to see if they had been received. Informed patient that they are not in her chart at this time. Encouraged patient to have records sent to [phone]. Calli Live 04/26/2021 11:57 AM Signed Records received and placed on Maris Ramirez's desk for review. Calli Live Allergies As of Date: 04/26/2021 Noted Allergy Reaction DEXAMETHASONE 12/10/2020 8 - GI Upset Comments: HAIR LOSS PENICILLINS 12/10/2020 14 - Other: See Comments Comments: HIGH FEVER-CHILLS Date Reviewed: 02/10/2021 Reviewed by: Maris Ramirez APRN.[employer]OUND[employer] - Fully Assessed Reason for Visit: Nurse [...] 12/10/2020 Encounter Status:Closed by CALLI LIVE on 04/26/21NoMercy Health Fairfield HospitalBhumi 20-72-1756ZMOEFogjocetx (PAINMN) JOVANA XIE ([id number]) 1970 F Date Time Provider Department 02/11/21 MARIS RAMIREZ During your visit today, we recorded the following information about you: Maris Ramirez APRN.ILEANA 02/11/2021 7:37 AM Signed Please advise patient we received a fax from [facility]. It was the discharge page after her MRI. This is not what I had asked her to send. We need the procedure notes from her pain physician to see what procedures she has had done in the past. Thanks, Maris Ramirez APRN.ILEANA Ramirez APRN.CNP 02/11/2021 7:40 AM Signed Her provider in [place] is [facility]. Also need the EMG. [...] 12/10/2020 Encounter Status:Closed by MARIS RAMIREZ on 02/11/21[facility] 34-66-8203HNDZSvrnqtyqv (PAINMN) JOVANA XIE ([id number]) 1970 F Date Time Provider Department 02/02/21 MARIS RAMIREZ PAINMN During your visit today, we recorded the following information about you: Maris Ramirez APRN.DIRECT[employer] FOUNDATION 02/02/2021 12:33 PM Signed Please advise patient [...] states she will try to get to [facility] today to get films. Calli Live Allergies As of Date: 02/02/2021 Noted Allergy Reaction DEXAMETHASONE 12/10/2020 8 - GI Upset Comments: HAIR LOSS PENICILLINS 12/10/2020 14 - Other: See Comments Comments: HIGH FEVER-CHILLS Date Reviewed: 01/27/2021 Reviewed by: José Miguel Suarez, floral manager - Fully Assessed Reason for Visit: Results [...] 12/10/2020 Encounter Status:Closed by MARIS RAMIREZ on 02/02/21NoMer[facility] Hospital XR LUMBAR 4V AP/LAT/ FLEX/EXTon 95-43-2372VH LUMBAR 4V AP/LAT/ FLEX/EXT* * *Final Report* * * DATE OF [...] lumbar facet arthrosis. Mild lower lumbar spondylosis. Thermite Welder: PSCB Transcribe Date/Time: Feb 03 2021 9:38A Dictated by : SAULO ROCA MD This examination was interpreted and the report reviewed and electronically signed by: SAULO ROCA MD on Feb 03 2021 9:44AM EST [id number]_IDCSIACNNormalPremier HealthXR LUMBAR MOTION 4V AP/LAT/ FLEX/EXTon 14-23-8515Rymlwqsrq ClinicMR Lumbar spine WO and W contrast Agueda 15-11-7736RYWSNMTCOI: 1. Degenerative changes of the lumbar spine [...] and assume there are 5 lumbar-type vertebrae. Thermite Welder: PSCB Transcribe Date/Time: Jan 27 2021 11:21A Dictated by : MARIELLE SCOTT MD This examination was interpreted and the report reviewed and electronically signed by: MARIELLE SCOTT MD on Jan 27 2021 11:45AM [facility] DIVISION OF RADIOLOGY* * *Final Report* * * DATE OF EXAM: Jan 27 2021 10:37AM [facility] 0304 - MRI LUMBAR SPINE WO/W IVCON [...] wings are within normal limits. DIVISION OF RADIOLOGYProvider, [facility] [place] - 01/27/2021 * * *Final Report* * * DATE OF EXAM: Jan 27 2021 10:37AM [facility] 0304 - MRI LUMBAR SPINE WO/W IVCON [...] and assume there are 5 lumbar-type vertebrae. Thermite Welder: RASHMI Transcribe Date/Time: Jan 27 2021 11:21A Dictated by : MARIELLE SCOTT MD This examination was interpreted and the report reviewed and electronically signed by: MARIELLE SCOTT MD on Jan 27 2021 11:45AM EST [facility] ClinicRadiology Study observation (narrative)[facility] Lumbar spine WO and W contrast IVOrdered By: Ccf Provider on 09-64-1183Tasojxgzi ClinicMRI LUMBAR SPINE WO/W IVCONon 93-26-7382CKX LUMBAR SPINE WO/W IVCON* * *Final Report* * * DATE OF [...] and assume there are 5 lumbar-type vertebrae. Thermite Welder: [facility]OSPITALChayo Transcribe Date/Time: Jan 27 2021 11:21A Dictated by : MARIELLE SCOTT MD This examination was interpreted and the report reviewed and electronically signed by: MARIELLE SCOTT MD on Jan 27 2021 11:45AM EST [id number] Memorial Hospitalon 43-05-1588WITH Telephone (PAINMN) JOVANA XIE ([id number]) 1970 F Date Time Provider Department 12/22/20 MARIS RAMIREZ PAINJUNIOR During your visit today, we recorded the following information about you: Maris Ramirez APRN.DIRECT[employer] FOUNDATION 12/22/2020 3:00 PM Signed ----- Message from [employer] sent at 12/22/2020 12:17 PM EDT ----- [...] complete the Peer to Peer?: Dr, PA, SENIOR GENETIC COUNSELOR, LN Allowable Peer to Peer timeframe?: 3 business days starting from 12/20/2020 Payer Information Insurance Name: [employer] P2P option 3 Case #: [id number] Appeal Information Appeal Address: [employer]. Attn: Appeals Department [address] [place] [address] Appeal Fax#: [phone] Special Appeal Instruction: Send it attention to: Appeals department and attached any pertinent supporting documenation Allowable Timeframe for Appeal: 90 days from the denial date Facility Information Location: [facility] Tax ID#: [id number] Patient Demographics Patient Last Name: Anne-Marie Patient First Name: Jovana Date of : 1970 Clinical/Denial Information Ordering Provider: Maegan Angulo Approved Services: N/A Denied Services: 44143 - MRI LUMBAR SPINE WO/W IVCON Alternative [...] contact April . Thank you for the attention, [place]. Maris Ramirez APRN.CNP 12/22/2020 3:03 PM Signed [...] States that she has completed PT at [facility]. Patient given fax number to have records sent to our office. Calli Live 12/24/2020 2:50 PM Signed PT report received from [facility]. Scanned into chart. Calli Ramirez APRN.CNP 12/24/2020 4:21 PM Signed I have now spoken to 2 physician reviewers and reviewed previous MRI and advised that PT notes are scanned into Epic. They are requiring the PT notes be uploaded to [employer]. I sent a message to our authorization folks to have this done. She will need to reschedule the MRI. I sent her a [employer] message advising her of this. [employer] [...] dicyclomine (BENTYL) 20 m (more content not included)...NormalPaulding County HospitalPNon 95-45-0075FKGSQwymuyxhc (PAINMN) JOVANA XIE ([id number]) 1970 F Date Time Provider Department 12/17/20 MAEGAN ANGULO (HIST) PAINJUNIOR During your visit today, we recorded the [...] 12/10/2020 Encounter Status:Closed by CALLI LIVE on 12/17/20[facility] [id number] Visit (JACOBO) JOVANA XIE ([id number]) 1970 F Date Time Provider Department 12/10/20 [...] internal providers or by letter via the [employer] Postal Service for external providers. Chief Complaint: Back pain History of Present Illness: Jovana Xie is a 50 year old who [facility] for a follow [...] saline lock prior to (more content not included)...NormalHol[facility] Health System-CT ABD/PELVIS WO CON IMPORTon 96-68-2331CC-CT ABD/PELVIS WO CON IMPORTImages were obtained outside of [facility] [id number] Health Vital Signs Date TimeVital SignValuePerforming VukmoamxgBbrzbjvx12-82-3629 13:44-0400Body lexpup191.56 cmElvia Sweeney MD Work Phone: 1(978)[address] [place], [place] 0386907-17-2025 13:44-0400 Body mass index (BMI) [Ratio]47.2 kg/m2Elvia Sweeney MD Work Phone: 1(201)[address] [place], [place] 0386907-17-2025 13:44-0400 Body ysnglz911.73 kgElvia Sweeney MD Work Phone: 1(073)[address] [place], [place] 0386907-17-2025 13:44-0400 Diastolic blood uujrtqlx64 mm[Hg]Elvia Sweeney MD Work Phone: 1(772)[address] [place], [place] 0386907-17-2025 13:44-0400 Heart rate79 /Scott Sweeney MD Work Phone: 1(867)[address] [place], [place] 0386907-17-2025 13:44-0400 Respiratory rate16 /Scott Sweeney MD Work Phone: [phone])[address] [place], [place] 0386907-17-2025 13:44-0400 SaO2% (BldA) [Mass fraction]90 %Elvia Sweeney MD Work Phone: [phone])[address] [place], [place] 0386907-17-2025 13:44-0400 Systolic blood qvyxchsw606 mm[Hg]Elvia Sweeney MD Work Phone: 1(236)[address] [place], [place] [address]386903-21-2025 08:34-0400 Body xyzsvi440.6 cmLonny Sykes MD Work Phone: [facility]03-21-2025 08:34-0400Body mass index (BMI) [Ratio]48.06 kg/q2EggarfiLonny Sykes MD Work Phone: [facility]03-21-2025 08:34-0400Body hiyhop280.01 kgLonny Sykes MD Work Phone: [facility]03-21-2025 08:34-0400Diastolic blood nagcvaak26 mm[Hg]Lonny Sykes MD Work Phone: [facility]03-21-2025 08:34-0400Heart rate 71 /minLonny Sykes MD Work Phone: [facility]03-21-2025 08:34-0400Systolic blood cqgfdont569 mm[Hg]Lonny Sykes MD Work Phone: [facility]02-14-2025 08:43-0500Diastolic blood yoxqhgmz915 mm[Hg]Navdeep Valiente [phone]-Iunql[address] [place], [place] 7653702-14-2025 08:43-0500Mean blood lsomdfra364 mm[Hg]Navdeep Valiente [phone]-Fxtuz[address] [place], [place] 4005702-14-2025 08:43-0500Systolic blood mm[Hg]Navdeep Valiente [phone]-Ahyuu[address] [place], [place] 4005702-14-2025 08:37-0500Blood Pressure LocationMobillie Valiente [phone]-Sknfd[address] [place], [place] 7653702-14-2025 08:37-0500Diastolic blood peiztrrp077 mm[Hg]Navdeep Valiente 454-6732Ihyqkr-Eamit[address] [place], [place] 4005702-14-2025 08:37-0500Heart rate79 /minMoninaad Steffanie [phone]-Fmdyh[address] [place], [place] 4005702-14-2025 08:37-0500Respiratory rate14 /minMohamad Steffanie [phone]-VtlmkAkron [facility]02-14-2025 08:37-0500Systolic blood uomkymap202 mm[Hg]Navdeep Valiente [phone]-VqymeAkron Children'S Hospital01-09-2025 12:56-0500Body mass index (BMI) [Ratio]50.29 kg/o7SqguhAparna Briseno SENIOR GENETIC COUNSELOR Work Phone: [facility] CenterAdxlwmfthc55-09-5225 12:56-0500Body .9 kgAparna Briseno SENIOR GENETIC COUNSELOR Work Phone: [facility] CenterVswikocfnb57-45-5378 12:56-0500Diastolic blood xqfbargf904 mm[Hg]Aparna Briseno SENIOR GENETIC COUNSELOR Work Phone: [facility] CenterKbdznfjyfa86-92-9036 12:56-0500Heart rate69 /min Aparna Briseno SENIOR GENETIC COUNSELOR Work Phone: 1(606)[facility] [place]6[facility] CenterEjfdsssgcs87-04-3169 12:56-3923CeA7% (BldA) [Mass fraction]94 %Aparna Briseno SENIOR GENETIC COUNSELOR Work Phone: [facility] CenterVhmztakwdz74-34-9739 12:56-0500Systolic blood ocylkqjc180 mm[Hg]Aparna Briseno SENIOR GENETIC COUNSELOR Work Phone: [facility] CenterMybssktgzx79-57-2634 12:19-0500Body mass index (BMI) [Ratio]48.41 kg/n3Fdjghlkuedh Hassett DO Work Phone: [facility] CenterZmzgwrczid69-31-6523 12:19-0500Body dyzwog456.91 kgChristopher Cuba DO Work Phone: [phone] [place], [place] [address]Gbmkwbwazp29-58-6686 12:19-0500Diastolic blood toztlrvv710 mm[Hg]Christedmond Pittmanett DO Work Phone: [facility] CenterPmtgoplalg24-47-9327 12:19-0500Heart rate96 /min Christizaer Cuba DO Work Phone: [facility] CenterDponiksmpc19-42-0610 12:19-4102FyK8% (BldA) [Mass fraction]92 %Christizaer Cuba DO Work Phone: [facility] CenterGfbjnsshcr99-00-5999 12:19-0500Systolic blood jfttphus506 mm[Hg]Ayesha Brink DO Work Phone: [facility] CenterErhyqncmkv29-23-6169 12:31-0400Blood Pressure LocationMohamad Mouchli 138-5108Fkajvd-Mrqru[address] [place], [place] 4005706-12-2024 12:31-0400Diastolic blood drhhkyye79 mm[Hg]Mohamad Mouchli [phone]-Idrgs[address] [place], [place] 4005706-12-2024 12:31-0400Heart rate71 /minMohamad Mouchli [address] [place], [place] 5612806-12-2024 12:31-0400Respiratory rate16 /minMohamad Mouchli [address] [place], [place] 5612806-12-2024 12:31-0400Systolic blood ahegpxlw456 mm[Hg]Mohamad Mouchli [address] [place], [place] 5612805-20-2024 11:30-0400Blood Pressure LocationMohamad Mouchli [address] [place], [place] 7705305-20-2024 11:30-0400 Diastolic blood xpnurotp99 mm[Hg]Mohamad Mouchli [address] [place], [place] 7705305-20-2024 11:30-0400Heart rate63 /minMohamad Mouchli [address] [place], [place] 7705305-20-2024 11:30-0400Mean blood onhuznrx93 mm[Hg]Mohamad Mouchli [address] [place], [place] 7705305-20-2024 11:30-0400 Respiratory rate13 /minMohamad Mouchli [address] [place], [place] 7705305-20-2024 11:30-3643TaV9% (BldA) [Mass fraction]93 %Mohamad Mouchli [facility]05-20-2024 11:30-0400 Systolic blood aaxknwbj383 mm[Hg]Mohamad Mouchli [address] [place], [place] 7705305-20-2024 11:20-0400Blood Pressure LocationMohamad Mouchli [address] [place], [place] 7705305-20-2024 11:20-0400 Diastolic blood lewkjsrx15 mm[Hg]Mohamad Mouchli [address] [place], [place] 7705305-20-2024 11:20-0400Heart rate64 /minMohamad Mouchli [address]05-20-2024 11:20-0400Mean blood mm[Hg]Mohamad Mouchli [address] [place], [place] 7705305-20-2024 11:20-0400 Respiratory rate12 /minMohamad Mouchli [address] [place], [place] 7705305-20-2024 11:20-7235EdI2% (BldA) [Mass fraction]93 %Mohamad Mouchli [address] [place], [place] 7705305-20-2024 11:20-0400 Systolic blood mm[Hg]Mohamad Mouchli [address] [place], [place] 7705305-20-2024 11:05-0400Blood Pressure LocationMohamad Mouchli [address] [place], [place] 7705305-20-2024 11:05-0400 Diastolic blood feikpfip20 mm[Hg]Mohamad Mouchli [address] [place], [place] 7705305-20-2024 11:05-0400Heart rate64 /minMohamad Mouchli [address] [place], [place] 7705305-20-2024 11:05-0400Mean blood jxrdfehq64 mm[Hg]Chucklex Keirali [facility]05-20-2024 11:05-0400 Respiratory rate25 /minAdanhamad Adanlanli [address] [place], [place] 7705305-20-2024 11:05-4233MxP0% (BldA) [Mass fraction]95 %Chucklex Keirali [address] [place], [place] 7705305-20-2024 11:05-0400 Systolic blood sngqntpo880 mm[Hg]Chucklex Keirali [address] [place], [place] 7705305-20-2024 10:52-0400Body gtktltsmoov28.42 [degF]Chucklex Keirali [address] [place], [place] 7705305-20-2024 09:47-0400Body jhaxkmvrhro03.52 [degF]Chucklex Keirali [address] [place], [place] 7705305-16-2024 09:31-0400Blood Pressure LocationMoninaad Keirali [phone]-Nvpbt[address] [place], [place] 4005705-16-2024 09:31-0400Diastolic blood dorxsbhu26 mm[Hg]Chucklex Keirali 702-0986Yfdcyl-Qhtjg[address] [place], [place] 4005705-16-2024 09:31-0400Heart rate76 /minJhoanaad Keirali 675-3380Xhahaj-Sivys[address] [place], [place] 4005705-16-2024 09:31-0400Systolic blood dsgtolwv590 mm[Hg]Chuckd Keirali [phone]-Hjfzl[address] [place], [place] 4005706-07-2023 09:45-0400Body .56 [facility]alexy Pham Other [employer] Other 06-07-2023 09:45-0400Body mass index (BMI) [Ratio] 51.49 kg/x3Nyfwrkb [employer] Other [employer] Other 06-07-2023 09:45-0400Body kjkqpi724.08 kgColleen Calvey Other [employer] Other 05-10-2023 11:15-0400Body frldav081.56 cmColleen Calvey Other [employer] Other 05-10-2023 11:15-0400Body mass index (BMI) [Ratio] 51.49 kg/z8Dtanvmi [employer] Other [employer] Other 05-10-2023 11:15-0400Body ymrszd341.08 kgColleen Calvey Other [employer] Other 01-18-2023 11:30-0500Body huryqc310.56 cmColleen Calvdominga Other [employer] Other 01-18-2023 11:30-0500Body mass index (BMI) [Ratio] 48.06 kg/b4Ursblmj Calvdominga Other [employer] Other 01-18-2023 11:30-0500Body odjahz571.01 kgColleen Calvdominga Other [employer] Other 04-21-2022 14:30-0400Diastolic blood hmdmllwo68 mm[Hg] MD Box Ankit Work Phone: [facility]04-21-2022 14:30-0400 Heart rate65 /min Charu Pham Work Phone: [facility]04-21-2022 14:30-0400 Respiratory rate16 /minMD Charu Pham Work Phone: [facility]04-21-2022 14:30-0400 SaO2% (BldA) [Mass fraction]95 %MD Charu Pham Work Phone: [facility]04-21-2022 14:30-0400 Systolic blood hpeyzmdl272 mm[Hg]MD Charu Pham Work Phone: 1([phone])[address]04-21-2022 13:37-0400 Inhaled oxygen flow rate8 L/min Charu Pham Work Phone: 1(905)[address]04-21-2022 12:37-0400 Body ogookd209.56 cmMD Charu Pham Work Phone: 0(186)[address]04-21-2022 12:37-0400 Body mass index (BMI) [Ratio]54.1 kg/m2MD Charuruth Pham Work Phone: 3(356)825-[address] [place], [place] 3833004-21-2022 12:37-0400 Body ciyruc074 kgMD Charu Pham Work Phone: 7(390)401-[address] [place], [place] 3833004-21-2022 11:44-0400 Body dwqootzxqnp21.6 [degF]MD Charu Pham Work Phone: 7(609)[address]02-25-2022 09:30-0500 Body ynptdb410.56 [facility] Pham Other [employer] Other 02-25-2022 09:30-0500Body mass index (BMI) [Ratio] 53.21 kg/r8Ypayqrojames Pham Other [employer] Other 02-25-2022 09:30-0500Body ylnknl890.62 kgCojames Pham Other [employer] [facility] [employer] Other 01-14-2022 09:15-0500Body xenlzs348.56 [facility] [employer] Other [employer] Other 01-14-2022 09:15-0500Body mass index (BMI) [Ratio] 53.21 kg/v4Fzsblri [employer] Other [employer] Other 01-14-2022 09:15-0500Body xslfak470.62 kgColleen Calvey Other [employer] Other 12-17-2021 09:30-0500Body coqxri040.56 cmColleen Calvdominga Other [employer] Other 12-17-2021 09:30-0500Body mass index (BMI) [Ratio] 51.49 kg/l8Eijfgmd Calvey Other [employer] Other 12-17-2021 09:30-0500Body .08 kgColleen Calvey Other [employer] Other 10-20-2021 11:00-0400Body kbubri747.56 cmColleen Calvdominga Other [employer] Other 10-20-2021 11:00-0400Body mass index (BMI) [Ratio] 51.15 kg/o7Ugkspfz Calvey Other [employer] Other 10-20-2021 11:00-0400Body cubhoj734.17 kgColleen Calvey Other [employer] Other Encounters Encounter DateEncounter TypeCare ProviderFacilityStart: 48-82-1152fptqwektdphernan MurrybsFacility:FT ADRYAN BellevueStart: 04-06-2025 End: 91-15-1243srphnbpedhIGP DEYSI A LEHMANNFacility:FT FM BellevueStart: 03-31-2025 End: 05-34-5014tdbkkyaojmKVCT [facility] Systemtart: 03-09-2025 End: 17-48-7624yluewveyrbTOY DEYSI A LEHMANNFacility:FT FM BellevueStart: 2025 End: 35-24-2362ovmozidmqbQGZ DEYSI A LEHMANNFacility:FT FM BellevueStart: 12-64-5867kvqagzgnyqJca E KnightFacility:[facility] Hospitaltart: 12-31-2024 End: 94-36-4986Wizutdf encounter Gabriela Briseno APRN-FNP-C-EMG Work Phone: Start: 12-31-2024 End: 19-88-3699csbbepciqtDhvfyq E Ross MD Work Phone: [facility] Work Phone: Start: 17-26-9921Seevscfhdt Carolyn HUGO CredibleStart: 12-18-2024 End: 97-56-0614uxkejuquzbNaxBettina Sweeney MD Work Phone: [facility] Work Phone: Start: 12-18-2024 End: 59-15-0925Irbhhrz encounter Gabriela Briseno APRN-FNP-C-FPG Neurology [place] Work Phone: Start: 12-11-2024 End: 24-03-5785xxczpatjuzALOSPE A LEHMANNFacility:FT FM BellevueStart: 12-04-2024 End: 34-22-7152jjxratfesyNqasfv E. RossFacility:FT FM BellevueStart: 11-24-2024 Registered Carolyn HUGO CredibleStart: 10-21-2024 End: 61-39-9945qtmpzpolnvOjmjrp E. RossFacility:FT FM BellevueStart: 10-09-2024 End: 72-55-4319Gyhnjyzon encounterSsteffanie Briseno SENIOR GENETIC COUNSELOR Work Phone: aNA BELLEVUEStart: 09-23-2024 End: 34-79-1976mulnaoqvssHZTY CHAProMedica Fostoria Community Hospitaltart: 09-12-2024 End: 41-28-6539uzobdpbjomWJQWGYD A [facility] Hospitaltart: 09-10-2024 End: 43-35-9320lsqwpxxqtoOxnbnv E. RossFacility:FT BellueStart: 08-22-2024 End: 05-65-4669ocwesycjnzLKUQOHU A [facility] Centertart: 08-22-2024 End: 40-07-3190Bqumhf outpatient visit 25 minutesLonny Sykes MD Work Phone: [facility] NeuroSurgeryComment on above: Thoracic myelopathy (Primary Dx)Start: 08-20-2024 End: 88-81-5269Iwapus OnlyLonny Sykes MD Work Phone: [facility] NeuroSurgeryComment on above:Low back pain, unspecified back pain laterality, unspecified chronicity, unspecified whether sciatica present (Primary Dx)Start: 08-19-2024 End: 81-96-3558blgkdvicrwGFTHW FINNNot AvailableStart: 08-06-2024 End: 95-56-9860Neupybele Result EncounterSsteffanie Briseno SENIOR GENETIC COUNSELOR Work Phone: noms External Department UnsolicitedStart: 08-06-2024 End: 19-53-2033Adcilwoez Result Nicolás Briseno SENIOR GENETIC COUNSELOR Work Phone: noms External Department UnsolicitedStart: 07-22-2024 End: 88-75-2116vobkbnnrzlWeidnu E. RossFacility:FT evueStart: 07-18-2024 End: 17-03-2510umdpiaeikgNksvvya A. MouchliFacility:Rey DHStart: 07-18-2024 End: 36-25-7014Wuhexwk encounter procedureNavdeep Valiente [phone]-IodhcBellevue Hospital [facility] Start: 06-26-2024 End: 53-64-8927Iaj Drop Yousufaguila AlexSantos Freeman [facility] Start: 06-26-2024 End: 08-45-3344vnkswtsfskNxvqly E. RossFacility:FT FM BellevueStart: 06-24-2024 End: 64-25-0559inlihtqdgsEojjmk E. RossFacility:FT FM BellevueStart: 06-12-2024 End: 84-30-5778Wisqpm flowsDonny Briseno SENIOR GENETIC COUNSELOR Work Phone: ana BELLEVUEStart: 06-12-2024 End: 24-16-8050Nusgqk Kiara Briseno SENIOR GENETIC COUNSELOR Work Phone: aNA BELLEVUEStart: 06-12-2024 End: 88-00-3708Mnwihhpbg Paulinesteffanie Briseno SENIOR GENETIC COUNSELOR Work Phone: ana BELLEVUEStart: 06-12-2024 End: 31-91-4831Fgssox outpatient visit 25 minutesSasregey Briseno SENIOR GENETIC COUNSELOR Work Phone: ana BELLEVUEComment on above:Chronic migraine without aura with status migrainosus, not intractable (CMS/HCC) (Primary Dx); Lumbosacral radiculopathy; Abnormal MRI, lumbar spine; Ulnar neuropathy of left upper extremityStart: 06-12-2024 End: 99-76-7151huddharudyNVBKH CARROLLNot AvailableStart: 04-17-2024 End: 65-76-1215vkzlievsqlCodhwk E. RossFacility:FT FM BellevueStart: 04-15-2024 End: 08-23-8641titsnosgxjBVQB CHACKWyandot Memorial Hospitaltart: 04-07-2024 End: 56-53-0295Jwavfyshan Brink DO Work Phone: [facility]OMS ZAMUDIO [facility] ROUTEStart: 04-07-2024 End: 47-01-2373Zzvzbm flowsheetChristopher Cuba DO Work Phone: no [place] [facility] ROUTEStart: 04-07-2024 End: 50-70-4497bwiygfdpkeVRVAYKMPARW HASSETTNot AvailableStart: 04-07-2024 End: 78-18-7462Xfrmjy outpatient visit 25 minutesChristopher Cuba DO Work Phone: no[facility] ROUTEComment on above:Chronic migraine without aura with status migrainosus, not intractable (CMS/HCC) (Primary Dx); Lumbosacral radiculopathy; Ulnar neuropathy of left upper extremityStart: 03-27-2024 End: 82-91-9703vuldtvpaanMwwwhi E. RossFacility:[facility] Hospitaltart: 03-07-2024 End: 39-57-9397ukezktwmtwYXTHIS W HEDGEshiva Tallapoosa HospitalStart: 03-07-2024 End: 35-76-9145Syexfqlrvw hospital [facility] by [facility] LaboratoryComment on above:Vulvar itching; CREATIVE/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 exam for high-risk Medicare patientStart: 11-14-2023 End: 78-94-5584Ielapgx encounter procedureNavdeep Valiente 149-5749Kxresy-MvgggBellevue Hospital [facility] Start: 10-22-2023 End: 75-07-3342Dgvospt encounter procedureNavdeep Valiente [facility] Start: 10-18-2023 End: 86-40-2491Ypkrjqm encounter procedureNavdeep Valiente [phone]-SscogBellevue Hospital [facility]est[facility] Start: 09-25-2023 End: 63-31-2080Gfl Drop Yareli Erazo [facility] Start: 11-08-2022 End: 99-93-4542xzxodaknqdRjfsgqx Calvey Other [facility] [employer] Other Start: 45-17-4348Yxstlo outpatient visit 15 minutes Charu CalveyFPG [facility] OrthopedicsStart: 10-27-2022 End: 49-81-5530sptpjyejezBH ALEM Amado ANKURFacility:S8Mezbp: 29-98-4530Wcgzew outpatient visit 15 minutesColleen CalveyFPG [facility] OrthopedicsStart: 10-11-2022 End: 48-85-8992zmkynazogkBY Kim E Knight Work Phone: [facility] Work Phone: Start: 10-11-2022 End: 17-74-0336Zdwhyxe encounter procedureMD Elvia Sweeney Work Phone: [facility]-XRay [facility] Start: 09-25-2022 End: 49-90-6556Jpb Drop Yareli Usman Erazo [facility] Start: 35-38-7848Mvjtph outpatient visit 15 minutes Charu CalveyFPG [facility] OrthopedicsStart: 06-21-2022 End: 11-51-7804jpgbmkkvqlOB Kim E Knight Work Phone: [facility] Work Phone: Start: 06-21-2022 End: 77-13-6354Bbicjci encounter procedureMD Elvia Sweeney Work Phone: [facility] Start: 12-27-2021 End: 67-33-5819cwshpkdsmnVF KIM E KNIGHT .Facility:P9Ghsin: 12-01-2021 End: 19-65-3047rermckguduMJ KIM E KNIGHT .Facility:N8Vjees: 11-30-2021 End: 61-68-0343qshcrfdmwrWW KIM E KNIGHT .Facility:P0Oqpgy: 11-29-2021 End: 99-05-6299vkfsptduqeSV KIM E KNIGHT .Facility:E9Wsyki: 11-25-2021 End: 57-51-2608ezulyrsbtwCIYISGV D A[facility] MOUNTAIN ISLANDKOFacility:J5Mwpgx: 34-22-4493Aypgwajnr for preprocedural laboratory examinationDR [facility] Start: 11-21-2021 End: 92-40-6894seaoffvunrLE [facility]iumcility:B7Gfkvy: 11-21-2021 End: 58-48-8870Tfzimelnc for preprocedural laboratory examinationDR [facility] Kaufmanity:P8Zbhko: 09-22-2021 End: 72-70-4209Dftvbrsmw to same day surgery centerMD Charu Pham Work Phone: [facility] CenterStart: 09-20-2021 End: 56-85-4896Nxrsell encounter procedureMD Charu Pham Work Phone: [facility] Dev-Jkn-Pcovwjqh Testing Start: 09-15-2021 End: 37-40-2975Pwesdrl encounter procedureMD Charu Pham Work Phone: [facility] Dhy-Wgz-Gofwdyfq Testing Start: 07-29-2021 End: 97-18-7205ohgxxnrrifPmugdec Calvey Other [employer] Other Start: 40-11-4916Jlujyg outpatient visit 15 minutes Charu CalveyFPG [facility] OrthopedicsStart: 06-17-2021 End: 07-77-7747bprntfusavAagwbtz [place] Other [employer] Other Start: 01-35-9460Plqhfa follow up visit related to original pxCollalexy CalveyFPG [facility] OrthopedicsStart: 05-20-2021 End: 44-38-7038sawkbxagaoObhkifq [place] Other [place] [employer] Other Start: 09-34-4744Cnacds follow up visit related to original pxCollalexy Ruby OrthopedicsStart: 52-99-2256Bzktkzlfm for other preprocedural examinationColleen Max [facility] OrthopedicsStart: 79-23-0129Zmiddz outpatient new 45 minutesColleen [facility] Start: 02-02-2021 End: 32-24-9069Onrplxxgww hospital visit by physicianXr [facility]Rad[facility] Comment on above:Facet arthropathy, lumbar [M47.816]Start: 01-27-2021 End: 62-98-3423Itfedajukl hospital visit by physicianMri [facility] Corinna (1.5t) Work Phone: RadiologyComment on above:Pathological fracture, other site, initial encounter for fracture [M84.48XA] Procedures DateProcedureProcedure DetailPerforming ClinicianStart: 11-10-4825Kzrwuk-up visitFollow-upPAUL CHACKOStart: 93-78-4539Xigmxu-up visitFollow-upMICHAEBryce Garber HEALYStart: 51-26-4491RJ LUMBAR SPINE WO Snehal Briseno NP Work Phone: Start: 84-53-4294Rimjkfmpkej observation [Identifier] in Cervix by Cyto stainLonny Sykes MD Work Phone: Start: 41-09-8910SffwbqfuunzAjpxmwb Mouchmaye Start: 34-34-7242QcxouqjksjnpsexpahqnhuuhojZnbdsvm Mouchmaye Start: 79-58-3344Pidxt X-ray of bilateral handsMD Elvia Sweeney Work Phone: Start: 15-66-9649Q-ray of cervical spineMD Elvia Sweeney Work Phone: Start: 84-99-2628Bavlurhzxnnhu of median nerveMD Charu Pham Work Phone: Start: 17-68-3077Fimby spine lumbosacral minimum 4 viewsAparna Boudreaux MD Work Phone: Start: 81-60-8815Dki spinal canal lumbar w/o & w/contr Steff Ramirez APRN.CNP Work Phone: Start: 57-23-7071Swpgivb catheter (physical object) Melissa Erazo Start: 70-08-7396Umece abdominal hysterectomy with bilateral salpingo-oophorectomyMelissa Erazo Arthroscopymagda Erazo Comment on above:left and right, separate timesH/O: hysterectomyS/P hysterectomyMohamad Mouchli History of cholecystectomyS/P cholecystectomyMohamad Mouchmaye History of operative procedure on lumbar spinal structureSaguila Erazo Comment on above:L4-L5 disc December 2015Tonsillectomy and adenoidectomyMelissa Erazo Plan of Treatment DateCare ActivityDetailAuthorStart: 39-71-8832Vgvfqjmbz for malignant neoplasm of cervixPap SmearProMedica Mercy [facility] SystemStart: 54-40-3141ldundsmnksMympsdoclg Facility:[facility] Theotart: 40-17-2809Xteoa BMI ScreeningAdult BMI Screening [facility] SystemStart: 68-62-1983Ohaonep ScreeningTobacco Screening ProMCuyuna [facility] SystemStart: 46-64-0864vhnfbmltmpWtmihcahmkWobmdwzs:[facility] Theotart: 12-18-2024 End: 77-59-9409Kprtiwp encounter zyvwzxnxv52/17/2025 1:40 PM EDT Office Visit OLIVIA ZAMUDIO [address] [place] [phone] Aparna Briseno NP [address] [place] [phone] OLIVIA Arroyo: 09-18-2024 End: 55-73-7047Ngadswn encounter vyvrnbafm07/17/2025 9:00 AM EDT Office Visit OLIVIA RUBY [address] [address] [place] [phone] Aparna Briseno, FLY [address] [facility] [place] [phone] OLIVIA BAIRDYStart: 09-12-2024 End: 90-24-8118Nbnpsbs encounter /11/2025 6:45 AM EDT Appointment [facility] - [facility] Imaging [address] [place] [address] [facility] - MRI ImagingStart: 08-22-2024 End: 55-89-5722VM Thoracic spine WO contrastMR thoracic spine without contrast Imaging Routine Thoracic myelopathy Expected: 08/22/2024, Expires: 08/22/2025 [facility] Work Phone: Comment on above:Expected: 08/22/2024, Expires: 08/22/2025Start: 08-22-2024 End: 14-39-6014Uccsebs encounter bbxcjugyx56/21/2025 8:00 AM EDT Office Visit [facility] [address] [place] [phone] Lonny Sykes MD [address] [place] [phone] [facility] NeuroSurgeryStart: 08-20-2024 End: 94-22-4734CQ Lumbar spine Views AP W right bending and W left bendingX-ray spine lumbar flexion and extension only 2 to 3 views Imaging Routine Low Back Pain, Unspecified Back Pain Laterality, Unspecified Chronicity, Unspecified Whether Sciatica Present Expected: 08/20/2024, Expires: 08/20/2025[facility] Work Phone: Comment on above:Expected: 08/20/2024, Expires: 08/20/2025Start: 07-31-2024 End: 56-59-0968Igltaqj encounter /27/2025 1:00 PM EST Office Visit OLIVIA ZAMUDIO [address] [place] [phone] Aparna Briseno NP [address] [place] [phone] OLIVIA COFFMANtart: 06-12-2024 End: 83-54-6873SI Lumbar spine WO and W contrast IVMR lumbar spine w and wo contrast Imaging Routine Lumbosacral radiculopathy Abnormal MRI, lumbar spine Expected: 06/12/2024 (Approximate), Expires: 06/12/2025[facility] Work Phone: comment on above:Expected: 06/12/2024 (Approximate), Expires: 06/12/2025Start: 06-12-2024 End: 75-96-1022Bozqyyq encounter procedureNOGA [place] STATE ROUTEComment on above:ArrivedStart: 42-01-0243TRFCS-19 Vaccine ( season)COVID-19 Vaccine ( season)[facility]Start: 74-45-1153Jxxko-19 Vaccine ( season)Covid-19 Vaccine ( season)[facility]: 50-63-9254Ourgqevbl vaccinationWexner Medical Centertart: 01-03-2024 Influenza vaccinationFlu vaccine (#1)[facility] Healthart: 02-02-2023 Influenza vaccinationINFLUENZA (#1)[facility] Cent[facility]art: 78-89-3346GKUQVVGRHB ASSESSMENTDEPRESSION ASSESSMENTWexner Medical Centertart: 29-82-2375Yoedygskdhvlmm of varicella zoster vaccineZoster (Shingles) Vaccine (1 of 2)[facility] CenterStratoscaleRidgeview Le [facility] SystemStart: 05-19-7876Sbitdamd vaccine (1 of 2)Shingles vaccine (1 of 2)[facility]ITALStart: 82-01-1891NFUWXZIZ VACCINE (1 of 2)SHINGRIX VACCINE (1 of 2)[facility] Cent[facility]art: 33-39-3573UDBTZLPNX (FIT-DNA)COLOGUARD (FIT-DNA) [facility]art: 01-25-9720RrfdgrnviaxPFSGESATFBUZqhukokud ClinicStart: 52-90-1760QIWWOYIUVX CANCER SCREENINGCOLORECTAL CANCER SCREENINGThe [facility] Start: 50-13-7695RJ COLONOGRAPHYCT COLONOGRAPHYWexner Medical Centertart: 2016 DIABETES SCREENDIABETES SCREENWexner Medical Centertart: 32-98-4152Xzjzcjjb ScreeningDiabetes ScreeningWexner Medical Centertart: 59-62-1523FQVVP OCCULT BLOOD FECAL OCCULT BLOODWexner Medical Centertart: 66-33-6622Pwdzp panelLipid Screening [facility]ertart: 88-42-2464HAVSI SCREENLIPID SCREENWexner Medical Centertart: 10-25-1923Gfumiubvu for malignant neoplasm of colonWexner Medical Centertart: 94-79-5150ICADAXEGEZRFILSIQSPPKGNWMDFrrnsfokw ClinicStart: 13-31-5572Xjxmb panel LipidsCARILION FRANKLIN MEMORIAL HOSPITALStart: 82-11-3304XphttwsqfmrMIZWSZOQLAdpoypwda ClinicStart: 42-91-6264Xcvlotpix for malignant neoplasm of breastW[facility]ner Medical Centertart: 63-25-6495Ayymkqoz screenDiabetes screenBON [facility] Start: 26-18-8727LXN TESTINGHPV TESTINGWexner Medical Centertart: 06-74-9430BBS TESTINGPAP TESTINGWexner Medical Centertart: 47-25-1690Madooohrp for malignant neoplasm of cervixWexner Medical Centertart: 68-40-6220ETqQ,Tdap and Td Vaccines (1 - Tdap)DTaP,Tdap and Td Vaccines (1 - Tdap)[facility] CAretart: 66-72-5839MRgT/Tdap/Td vaccine (1 - Tdap)DTaP/Tdap/Td vaccine (1 - Tdap)[facility]ITALStart: 96-13-7105Numabdfno B Vaccine (1 of 3 - 19+ 3-dose series)Hepatitis B Vaccine (1 of 3 - 19+ 3-dose series)[facility]art: 63-99-5318Kelcq microalbumin profileWexner Medical Centertart: 06-84-1365Ssghl BMI Follow Up PlanAdult BMI Follow Up PlanFormerly [facility], [facility] CAretart: 1989 Adult BMI ScreeningAdult BMI ScreeningFormerly [facility], [facility] CAretart: 1989 Anxiety ScreeningAnxiety ScreeningWexner Medical Centertart: 27-34-8268Ppcqifaekt ScreeningDepression ScreeningWexner Medical Centertart: 72-26-7276ONFQANVAV C SCREENINGHEPATITIS C SCREENINGWexner Medical Centertart: 76-47-5711Iaqbmnngu C screeningWexner Medical Centertart: 62-02-5526XCR SCREENINGHIV SCREENINGWexner Medical Centertart: 36-59-5669OXG screeningHIV ScreeningWexner Medical Centertart: 64-86-9823PIN screeningHIV screenBON [facility] Hospitalart: 1983 Depression ScreenDepression ScreenLewisGale Hospital Pulaski: 1983 Depression ScreeningDepression ScreeningFormerly [facility] CAretart: 1983 Tobacco ScreeningTobacco ScreeningFormerly [facility], later [facility] CAretart: 1977 PNEUMOCOCCAL (1 - PCV)PNEUMOCOCCAL (1 - PCV)[facility] Cent[facility]: 1977 Pneumococcal 0-64 years Vaccine (1 of 2 - PCV)Pneumococcal 0-64 years Vaccine (1 of 2 - PCV)[facility]: 14-14-5929LPCOG-19 VACCINE (#1)COVID- 19 VACCINE (#1)[facility]: 25-60-0934UADXYLOCO B (1 of 3 - 3-dose series)HEPATITIS B (1 of 3 - 3-dose series)[facility]: 1971 Tobacco CounselingTobacco CounselingTrinity Health System [facility] End: 01-45-2616Lxdedcm, GenitalBON [facility] on above:1 Occurrences starting 03/07/2024 until 03/07/2024 End: 12-87-3309Lofdugounvvsz procedure, preparation of smear, genital sourcePAP SMEAR Lab Routine CREATIVE/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 exam for high-risk Medicare patient 1 Occurrences starting 03/07/2024 until 03/07/2024ON [facility] on above:1 Occurrences starting 03/07/2024 until 03/07/2024ElectromyographyTrihealth Mccullough-Hyde Memorial HospitalPatient referralFlower Hospital Work Phone: Payers DatePayer CategoryPayerPolicy ID2025Medicare (Managed Care) [id number] 2025Medicare [place] [employer] Member Subscriber Plan / Payer (Effective 2024-Present) Name: Tameka Xie ID: [id number] Relation to Subscriber: Self Name: Jovana Xie Subscriber ID: [id number] ID: [id number] (NAIC) Type: Not on file Address: [facility] [address] [place] [id number] 2022MedicareMEDICARE [id number] 2018Medicaid [id number] 2003Medicaid [place] [id number] 2.16840.1.373595.3.57[id number] 2.16840.1.254555.3.57[id number] 2.160.1.536878.3.57[id number] 2.16840.1.144089.3.57[id number] 2.16840.1.411387.3.57[id number] 2.16840.1.577326.3.57[id number] 2.16840.1.476770.3.57[id number] 2.16840.1.573294.3.57[id number] 2.840.1.045764.3.579.2.14898-97-1982Rvqtbpw97003727 2.16840.1.864242.3.57[id number] 2.16840.1.759790.3.57[id number] 2.16840.1.056706.3.57[id number] 2.16840.1.779364.3.579.[id number] 2.16.840.1.458886.3.579.[id number] 2.16.840.1.071215.3.57[id number] 2.16.840.1.847149.3.57[id number] 2.16.840.1.565883.3.57[id number] 2.840.1.779777.3.57[id number] 2.0.1.511438.3.57[id number] 2.840.1.805313.3.579.[id number] 2.840.1.615839.3.579.2.[id number] 2.840.1.299966.3.579.2.97878-18-5997Bpbxuol29094940 2.0.1.502945.3.57[id number] 2.840.1.595352.3.57[id number] 2.840.1.008316.3.579.2.19945-27-0454Eoslyls32784806 2.16840.1.218828.3.579.2.71623-46-3219Bxyscus96546950 2.16840.1.399256.3.57[id number] 2.16.840.1.439239.3.579.2.90100-28-6413Nuwrgvy26249558 2..840.1.947381.3.579.2.20055-57-1932Rhftipo61166921 2..0.1.966040.3.579.2.01139-64-9247Jmphezy27278483 2.0.1.459914.3.579.[id number] 2.0.1.595485.3.579.2.07102-46-3507Nlgwwtj18593999 2.0.1.714260.3.579.2.01068-09-1854Mvofjkb30661008 2.0.1.009603.3.579.2.21151-59-7948Bxhzdjc85884956 2..1.117567.3.579.2.67314-59-7266Ztxpmwh06266353 2..1.722513.3.579.2.727 [id number] 2..1.706497.19UnknoParkview [id number] 2j40cdn8-22s6-68ff-wh6q-9dyh25455041VzcyrocLjxtxdtl Nknrtfwru175-76-7807 y1831x07-88s1-82sn-2519-0ea164543pa4Bjvqmfh19697808 2.840.1.9[id number] 2.840.1.156919.3.579.2.531 Social History DateTypeDetailFacilityStart: 09-15-2021 End: 46-78-4642Mljncig smoking status NHISSmoker (finding)[facility] Hospitaltart: 45-36-6553Cey Assigned At [facility] CenterFeSelect Medical Specialty Hospital - Cantontart: 12-10-2020 End: 07-04-8239Ynk Assigned At [facility] Hospitaltart: 42-72-0118Wirxdbv smoking statusHeavy tobacco smoker (finding)[facility] HospitalueTobacco smoking statusNeverWvumedicine Barnesville HospitalueStart: 12-10-2020 End: 60-27-2242Qmvurqd smoking status NHISSmokes tobacco dailyThe [facility] Hospital History of tobacco useCigarette SmokerWexner Medical Centertart: 12-10-2020 End: 46-15-7727Ebqlqkexvw smoked current (pack per day) - Reported0.5Ct[facility] ClinicStart: 12-10-2020 End: 07-10-4931Makwodh use and exposureSmokeless tobacco non-userWexner Medical Centertart: 32-92-3633Ngycyzw intakeLifetime non-drinker (finding)[facility]: 73-65-8147Wwfzhf identityIdentifies as female gender (finding) [facility]: 13-17-1426Mjponf orientationHeterosexual (finding) [facility]: 12-28-2020 End: 26-83-4982Vfvwdkgn to SARS-CoV-2 (event)Not sureWexner Medical Centertart: 09-25-2023 End: 61-74-9775Bbjlbrw smoking statusEx-smoker (finding)[facility] AvonueStart: 03-07-2024 End: 19-47-4218Bgppbeqtb beverage intakeCurrent drinker of alcohol (finding)[facility]: [facility] End: 44-67-2286Boxfevw CommentsocialCARILION FRANKLIN MEMORIAL HOSPITALStart: 45-12-5715Lcm assigned at birthNot on [facility]Start: 06-26-2024 End: 70-15-0268Plgwujb smoking statusLight tobacco smoker (finding)[facility] BellevueComment on above:smoked less than a 1/2 pack a day.Start: 00-03-3986PurMqtwbr (finding)[facility] SystemStart: 05-57-4959Bhazvijnl beverage intakeEx-drinker (finding)[facility] Goals DatePatient GoalDesired Activity/[id number] Functional Status XlycPwutbfiddiZqtetzGutcqaoe82-43-7184Qaxjxhhctv StatusN/[facility] [id number] StatusN/[facility] Hiegsy66-77-6533Ktrdoibjdl StatusN/[facility] 94-79-6998Fygsvzllrv StatusN/[facility] Clinical Notes 12-10-2020 to 04-06-2025 Note Date & SxraAwgvNolypzfr00-43-8276 NotePatient Education Neurology Peripheral Neuropathy Peripheral neuropathy is a type of nerve damage. It affects nerves that carry signals between the spinal cord and the arms, legs, and the rest of the body (peripheral nerves). It does not affect nerves in the spinal cord or brain. In peripheral neuropathy, one nerve or a group of nerves may be damaged. Peripheral neuropathy is a broad category that includes many specific nerve disorders, like diabetic neuropathy, hereditary neuropathy, and carpal tunnel syndrome. What are the causes? This condition may be caused by: ??? Certain diseases, such as: ? Diabetes. This is the most common cause of peripheral neuropathy. ? Autoimmune diseases, such as rheumatoid arthritis and systemic lupus erythematosus. ? Nerve diseases that are passed from parent to child (inherited). ? Kidney disease. ? Thyroid disease. ??? Other causes may include: ? Nerve injury. ? Pressure or stress on a nerve that lasts a long time. ? Lack (deficiency) of B vitamins. This can result from alcoholism, poor diet, or a restricted diet. ? Infections. ? Some medicines, such as cancer medicines (chemotherapy). ? Poisonous (toxic) substances, such as lead and mercury. ? Too little blood flowing to the legs. In some cases, the cause of this condition is not known. What are the signs or symptoms? Symptoms of this condition depend on which of your nerves is damaged. ??? Symptoms in the legs, hands, and arms can include: ? Loss of feeling (numbness) in the feet, hands, or both. ? Tingling in the feet, hands, or both. ? Burning pain. ? Very sensitive skin. ? Weakness. ? Not being able to move a part of the body (paralysis). ? Clumsiness or poor coordination. ? Muscle twitching. ? Loss of balance. ??? Symptoms in other parts of the body can include: ? Not being able to control your bladder. ? Feeling dizzy. ? Sexual problems. How is this diagnosed? Diagnosing and finding the cause of peripheral neuropathy can be difficult. Your health care provider will take your medical history and do a physical exam. A neurological exam will also be done. This involves checking things that are affected by your brain, spinal cord, and nerves (nervous system). For example, your health care provider will check your reflexes, how you move, and what you can feel. You may have other tests, such as: ??? Blood tests. ??? Electromyogram (EMG) and nerve conduction tests. These tests check nerve function and how well the nerves are controlling the muscles. ??? Imaging tests, such as a CT scan or MRI, to rule out other causes of your symptoms. ??? Removing a small piece of nerve to be examined in a lab (nerve biopsy). ??? Removing and examining a small amount of the fluid that surrounds the brain and spinal cord (lumbar puncture). How is this treated? Treatment for this condition may involve: ??? Treating the underlying cause of the neuropathy, such as diabetes, kidney disease, or vitamin deficiencies. ??? Stopping medicines that can cause neuropathy, such as chemotherapy. ??? Medicine to help relieve pain. Medicines may include: ? Prescription or qhzj-afq-nfkayri pain medicine. ? Anti-seizure medicine. ? Antidepressants. ? Pain-relieving patches that are applied to painful areas of skin. ??? Surgery to relieve pressure on a nerve or to destroy a nerve that is causing pain. ??? Physical therapy to help improve movement and balance. ??? Devices to help you move around (assistive devices). Follow these instructions at home: Medicines ??? Take rbch-ygd-wdklcck and prescription medicines only as told by your health care provider. Do not take any other medicines without first asking your health care provider. ??? Ask your health care provider if the medicine prescribed to you requires you to avoid driving or using machinery. Lifestyle ??? Do not use any products that contain nicotine or tobacco. These products include cigarettes, chewing tobacco, and vaping devices, such as e-cigarettes. Smoking keeps blood from reaching damaged nerves. If you need help quitting, ask your health care provider. ??? Avoid or limit alcohol. Too much alcohol can cause a vitamin B deficiency, and vitamin B is needed for healthy nerves. ??? Eat a healthy diet. This includes: ? Eating foods that are high in fiber, such as beans, whole grains, and fresh fruits and vegetables. ? Limiting foods that are high in fat and processed sugars, such as fried or sweet foods. General instructions ??? If you have diabetes, work closely with your health care provider to keep your blood sugar under control. ??? If you have numbness in your feet: ? Check every day for signs of injury or infection. Watch for redness, warmth, and swelling. ? Wear padded socks and comfortable shoes. These help protect your feet. ??? Develop a good support system. Living with perip (more content not included)...[facility] NoteUT Electrophysiology Consult Note [facility] Reason for visit: Palpitations 03/31/2025 Pt wants to proceed with EPS. Review of Systems Constitutional: Positive for malaise/fatigue. Cardiovascular: Positive for dyspnea on exertion. Respiratory: Positive for shortness of breath. 09/23/24 She had MRI which revealed mild multilevel degenerative changes of the thoracic spine without significant thecal sac stenosis or neural foraminal stenosis. She wants those issues addressed. She felt good with Flecanide but had one or 2 breakthrough episodes. Prior HPI: Jovana Xie is a 55 y.o. year old with past medical history [...] that was likely a PAC setting of SVT. EKG 02/19/2024 shows sinus rhythm Prior EKGs from 01/16/2024 12/25/2023 11/27/2023 and 10/19/2023 were all normal PMH: Past Medical History: Diagnosis Date Asthma Dyspnea Hyperlipidemia Hypertension Insulin resistance Palpitations PSH: Past Surgical History: Procedure Laterality Date CHOLECYSTECTOMY HYSTERECTOMY SH: Social Drivers of Health Tobacco Use: High Risk (03/31/2025) Patient History Smoking Tobacco Use: Every Day Smokeless Tobacco Use: Never Passive Exposure: Not on file Alcohol Use: Not on file Financial Resource Strain: Not on file Food Insecurity: No Food Insecurity (08/22/2024) Received from [facility] Hunger Screening Within the past 12 months we worried whether our food would run out before we got money to buy more.: Never True Within the past 12 months the food we bought just didn't last and we didn't have money to get more.: Never True Transportation Needs: Not on file Physical Activity: Not on file Stress: Not on file Social Connections: Not on file Intimate Partner Violence: Unknown (07/26/2023) [place] [employer] Fear of Current or Ex-Partner: Not on file Emotionally Abused: Not on file Physically Abused: Not on file Sexually Abused: Not on file Physically or Sexually Abused: Not on file Depression: Not on file Housing Stability: Not on file Utilities: Not on file Health Literacy: Not on file Allergies: Allergies Allergen Reactions Dexamethasone Other HAIR LOSS Duloxetine Nausea And Vomiting Hydrocodone-Acetaminophen Lisinopril Penicillins Other HIGH FEVER-CHILLS Weight: 125kg Visit Vitals BP (!) 148/105 (BP Location: Right arm, Patient Position: Sitting) Pulse 95 Ht 1.626 m (5' 4 ) Wt 125 kg (276 lb) SpO2 96% BMI 47.38 kg/m??? Smoking Status Every Day BSA 2.38 m??? Meds: Current Outpatient Medications on File Prior to Visit Medication Sig Dispense Refill albuterol 90 mcg/actuation inhaler albuterol sulfate HFA 90 mcg/actuation aerosol inhaler atorvastatin (Lipitor) 40 mg tablet Take 40 mg by mouth in the morning. budesonide-formoteroL (Symbicort) 160-4.5 mcg/actuation inhaler Symbicort 160 mcg-4.5 mcg/actuation HFA aerosol inhaler famotidine (Pepcid) 20 mg tablet famotidine 20 mg tablet TAKE 1 TABLET BY MOUTH EVERY DAY AT BEDTIME FOR 30 DAYS Lyrica 50 mg capsule Take 50 mg by mouth three times daily. meloxicam (Mobic) 7.5 mg tablet Take 1 tablet by mouth in the morning. (Patient taking differently: Take 15 mg by mouth in the morning.) metFORMIN (Glucophage) 500 mg tablet metformin 500 [...] INJECT 0.25MG SUBCUTANEOUSLY EVERY WEEK 1 each Advair Diskus 250-50 mcg/dose diskus inhaler INHALE 1 PUFF BY MOUTH TWICE A DAY *RINSE MOUTH AFTER USE* (Patient not taking: Reported on 1 (more content not included)...[facility]10-06-2025 NotePatient Education Neurology Diabetic Neuropathy Diabetic neuropathy refers to nerve damage that is caused by diabetes. Over time, people with diabetes can develop nerve damage throughout the body. There are several types of diabetic neuropathy: ??? Peripheral neuropathy. This is the most common type of diabetic neuropathy. It damages the nerves that carry signals between the spinal cord and other parts of the body (peripheral nerves). This usually affects nerves in the feet, legs, hands, and arms. ??? Autonomic neuropathy. This type causes damage to nerves that control involuntary functions (autonomic nerves). Involuntary functions are functions of the body that you do not control. They include heartbeat, body temperature, blood pressure, urination, digestion, sweating, sexual function, or response to changes in blood glucose. ??? Focal neuropathy. This type of nerve damage affects one area of the body, such as an arm, a leg, or the face. The injury may involve one nerve or a small group of nerves. Focal neuropathy can be painful and unpredictable. It occurs most often in older adults with diabetes. This often develops suddenly, but usually improves over time and does not cause long-term problems. ??? Proximal neuropathy. This type of nerve damage affects the nerves of the thighs, hips, buttocks, or legs. It causes severe pain, weakness, and muscle (atrophy), usually in the thigh muscles. It is more common among older men and people who have type 2 diabetes. The length of recovery timemay vary. What are the causes? Peripheral, autonomic, and focal neuropathies are caused by diabetes that is not well controlled with treatment. The cause of proximal neuropathy is not known, but it may be caused by inflammation related to uncontrolled blood glucose levels. What are the signs or symptoms? Peripheral neuropathy Peripheral neuropathy develops slowly over time. When the nerves of the feet and legs no longer work, you may experience: ??? Burning, stabbing, or aching pain in the legs or feet. ??? Pain or cramping in the legs or feet. ??? Loss of feeling (numbness) and inability to feel pressure or pain in the feet. This can lead to: ? Thick calluses or sores on areas of constant pressure. ? Ulcers. ? Reduced ability to feel temperature changes. ??? Foot deformities. ??? Muscle weakness. ??? Loss of balance or coordination. Autonomic neuropathy The symptoms of autonomic neuropathy vary depending on which nerves are affected. Symptoms may include: ??? Problems with digestion, such as: ? Nausea or vomiting. ? Poor appetite. ? Bloating. ? Diarrhea or constipation. ? Trouble swallowing. ? Losing weight without trying to. ??? Problems with the heart, blood, and lungs, such as: ? Dizziness, especially when standing up. ? Fainting. ? Shortness of breath. ? Irregular heartbeat. ??? Bladder problems, such as: ? Trouble starting or stopping urination. ? Leaking urine. ? Trouble emptying the bladder. ? Urinary tract infections (UTIs). ??? Problems with other body functions, such as: ? Sweat. You may sweat too much or too little. ? Temperature. You might get hot easily. Or, you might feel cold more than usual. ? Sexual function. Men may not be able to get or maintain an erection. Women may have vaginal dryness and difficulty with arousal. Focal neuropathy Symptoms affect only one area of the body. Common symptoms include: ??? Numbness. ??? Tingling. ??? Burning pain. ??? Prickling feeling. ??? Very sensitive skin. ??? Weakness. ??? Inability to move (paralysis). ??? Muscle twitching. ??? Muscles getting smaller (wasting). ??? Poor coordination. ??? Double or blurred vision. Proximal neuropathy ??? Sudden, severe pain in the hip, thigh, or buttocks. Pain may spread from the back into the legs(sciatica). ??? Pain and numbness in the arms and legs. ??? Tingling. ??? Loss of bladder control or bowel control. ??? Weakness and wasting of thigh muscles. ??? Difficulty getting up from a seated position. ??? Abdominal swelling. ??? Unexplained weight loss. How is this diagnosed? Diagnosis varies depending on the type of neuropathy your health care provider suspects. Peripheral neuropathy Your health care provider will do a neurologic exam. This exam checks your reflexes, how you move, and what you can feel. You may have other tests, such as: ??? Blood tests. ??? Tests of the fluid that surrounds the spinal cord (lumbar puncture). ??? CT scan. ??? MRI. ??? Checking the nerves that control muscles (electromyogram, or EMG). ??? Checking how quickly signals pass through your nerves (nerve conduction study). ??? Checking a small piece of a nerve using a microscope (biopsy). Autonomic neuropathy You may have tests, such as: ??? Tests to measure your blood pressure and heart rate. You may be secured to an exam table that moves you from a lying position to an upright position (tab (more content not included)...[facility]07-17-2025 Evaluation note* Diagnosis Onset Date Resolution Status Admit Date Confusion acuteJuly 2024 1:37pmAbnormal MRI, lumbar spinechronicJuly 2024 1:37pmCarpal tunnel syndrome, bilateralchronicJuly 2024 1:37pmEpisodic migrainechronicJuly 2024 1:37pmLumbosacral radiculopathychronicJuly 2024 1:37pmUlnar neuropathy of left upper extremitychronicJuly 2024 1:37pm [facility] Work Phone: [phone]) [phone] NotePatient Education Endocrinology Blood Glucose Monitoring, Adult To manage your diabetes, you will need to keep track of your blood sugar (glucose). Check your blood glucose as often as told. Keep a record of your results over time. This can help you: ??? Know when to adjust your diabetes management plan with your health care provider. ??? See how food, exercise, illness, and medicines affect your blood glucose. ??? Know what your blood glucose is at any time. Your provider will set specific goals for your blood glucose levels. In many cases, these goals maybe: ??? Before meals (preprandial): 80?130 mg/dL (4.4?7.2 mmol/L). ??? After meals (postprandial): below 180 mg/dL (10 mmol/L). ??? A1C level: less than 7%. Supplies needed: ??? Blood glucose meter. ??? Test strips for your meter. Each meter has its own strips. You must use the strips that came with your meter. ??? A needle to prick your finger (lancet). Do not use a lancet more than once. ??? A device that holds the lancet (lancing device). ??? A journal or logbook to write down your results. How to check your blood glucose Checking your blood glucose 1. Wash your hands with soap and water for at least 20 seconds. 2. Prick the side of your finger with the lancet. Do not prick the tip of your finger. Do not use the same finger more than once. 3. Gently rub the finger until a small drop of blood appears. 4. Follow the instructions that came with the meter about how to insert the test strip, apply bloodto the strip, and use the meter. 5. Write down your result and any notes. Using alternative sites Some meters let you use other areas of your body (alternative sites) to test your blood. The most common places are the forearm, the thigh, and the palm of your hand. Alternative sites may not be as accurate as your fingers. The result you get may also be delayed. Use the finger only, and do not use alternative sites, if: ??? You think you have low blood glucose (hypoglycemia). ??? You sometimes do not know that your blood glucose is getting low (hypoglycemia unawareness). General tips and recommendations Blood glucose log ??? Write down the result each time you check your blood glucose. Note anything that may be affecting your blood glucose. This can help you and your provider: ? Look for patterns over time. ? Adjust your management plan as needed. ??? Check if your meter has an junaid or lets you download your records to a computer. Most meters keep a record of glucose readings in the meter. If you have type 1 diabetes: ??? You may need to check your blood glucose 4 or more times a day. Check your blood glucose as often as told by your provider. This may include: ? Before each meal and snack. ? Two hours after a meal. ? Before bedtime. ? If you have symptoms of hypoglycemia. ? After treating your hypoglycemia. ? Before doing things that have a risk of injury, such as driving or using machinery. ? Before and after exercise. ? Between 2:00 a.m. and 3:00 a.m., as told. ??? You may need to check your blood glucose more often, such as up to 6?10 times a day, if: ? You have diabetes that is not well controlled. ? You are ill. ? You have a history of severe hypoglycemia. ? You have hypoglycemia unawareness. If you have type 2 diabetes: ??? You may need to check your blood glucose 2 or more times a day. Check your blood glucose as often as told by your provider. This may include: ? Before and after exercise. ? Before doing things that have a risk of injury, such as driving or using machinery. ??? You may need to check your blood glucose more often if: ? Your medicine is being adjusted. ? Your diabetes is not well controlled. ? You are ill. General tips ??? Make sure you always have your supplies with you. ??? After you use a few boxes of test strips, adjust (calibrate) your blood glucose meter. Follow the instructions that came with your meter. ??? If you have questions or need help, all blood glucose meters have a 24-hour hotline phone number that you can call. Also contact your provider with any questions or concerns. Where to find more information ??? The [place] [employer]: diabetes.org ??? The Association of Diabetes [employer] & Education Specialists: diabeteseducator.org Contact a health care provider if: ??? Your blood glucose is at or above 240 mg/dL (13.3 mmol/L) for 2 days in a row. ??? You have been sick or have had a fever for 2 days or longer and are not getting better. ??? You have any of these problems for more than 6 hours: ? You cannot eat or drink. ? You have nausea or vomiting. ? You have diarrhea. Get help right away if: ??? Your blood glucose is lower than 54 mg/dL (3 mmol/L). ??? You become confused, or you have trouble thinking clearly. ??? You have trouble breathing. ??? You have moderate to high ketone levels in y (more content not included)... [facility]07[facility]25 NotePatient Education Cardiovascular Managing Your Hypertension Hypertension, also called high blood pressure, is when the force of the blood pressing against the mcdonald of the arteries is too strong. Arteries are blood vessels that carry blood from your heart throughout your body. Hypertension forces the heart to work harder to pump blood and may cause the arteries to become narrow or stiff. Understanding blood pressure readings A blood pressure reading includes a higher number over a lower number: ??? The first, or top, number is called the systolic pressure. It is a measure of the pressure in your arteries as your heart beats. ??? The second, or bottom number, is called the diastolic pressure. It is a measure of the pressurein your arteries as the heart relaxes. For most people, a normal blood pressure is below 120/80. Your personal target blood pressure may vary depending on your medical conditions, your age, and other factors. Blood pressure is classified into four stages. Based on your blood pressure reading, your health care provider may use the following stages to determine what type of treatment you need, if any. Systolic pressure and diastolic pressure are measured in a unit called millimeters of mercury (mmHg). Normal ??? Systolic pressure: below 120. ??? Diastolic pressure: below 80. Elevated ??? Systolic pressure: 120?129. ??? Diastolic pressure: below 80. Hypertension stage 1 ??? Systolic pressure: 130?139. ??? Diastolic pressure: 80?89. Hypertension stage 2 ??? Systolic pressure: 140 or above. ??? Diastolic pressure: 90 or above. How can this condition affect me? Managing your hypertension is very important. Over time, hypertension can damage the arteries and decrease blood flow to parts of the body, including the brain, heart, and kidneys. Having untreated or uncontrolled hypertension can lead to: ??? A heart attack. ??? A stroke. ??? A weakened blood vessel (aneurysm). ??? Heart failure. ??? Kidney damage. ??? Eye damage. ??? Memory and concentration problems. ??? Vascular dementia. What actions can I take to manage this condition? Hypertension can be managed by making lifestyle changes and possibly by taking medicines. Your health care provider will help you make a plan to bring your blood pressure within a normal range. You may be referred for counseling on a healthy diet and physical activity. Nutrition ??? Eat a diet that is high in fiber and potassium, and low in salt (sodium), added sugar, and fat.An example eating plan is called the DASH diet. DASH stands for Dietary Approaches to Stop Hypertension. To eat this way: ? Eat plenty of fresh fruits and vegetables. Try to fill one-half of your plate at each meal with fruits and vegetables. ? Eat whole grains, such as whole-wheat pasta, brown rice, or whole-grain bread. Fill about one-fourth of your plate with whole grains. ? Eat low-fat dairy products. ? Avoid fatty cuts of meat, processed or cured meats, and poultry with skin. Fill about one-fourth of your plate with lean proteins such as fish, chicken without skin, beans, eggs, and tofu. ? Avoid pre-made and processed foods. These tend to be higher in sodium, added sugar, and fat. ??? Reduce your daily sodium intake. Many people with hypertension should eat less than 1,500 mg ofsodium a day. Lifestyle ??? Work with your health care provider to maintain a healthy body weight or to lose weight. Ask what an ideal weight is for you. ??? Get at least 30 minutes of exercise that causes your heart to beat faster (aerobic exercise) most days of the week. Activities may include walking, swimming, or biking. ??? Include exercise to strengthen your muscles (resistance exercise), such as weight lifting, as part of your weekly exercise routine. Try to do these types of exercises for 30 minutes at least 3 days a week. ??? Do not use any products that contain nicotine or tobacco. These products include cigarettes, chewing tobacco, and vaping devices, such as e-cigarettes. If you need help quitting, ask your health care provider. ??? Control any long-term (chronic) conditions you have, such as high cholesterol or diabetes. ??? Identify your sources of stress and find ways to manage stress. This may include meditation, deep breathing, or making time for fun activities. Alcohol use ??? Do not drink alcohol if: ? Your health care provider tells you not to drink. ? You are , may be , or are planning to become . ??? If you drink alcohol: ? Limit how much you have to: ? 0?1 drink a day for women. ? 0?2 drinks a day for men. ? Know how much alcohol is in your drink. In the [place] one drink equals one 12 oz bottle of beer (355 mL), one 5 oz glass of wine (148 mL), or one 1? oz glass of hard liquor (44 mL). Medicines Your health care provider may prescribe medicine if lifestyle changes are not enough (more content not included)...[facility]05-08-[facility]25 Telephone encounter Note* Telephone Encounter - Aparna Briseno NP - 10/09/2024 10:00 AM EDT [facility]. [id number] Miscellaneous Notes* Telephone Encounter - Aparna Briseno NP - 10/09/2024 10:00 AM EDT Prescription sent. * Telephone Encounter - Bhavna Ghotra - 10/09/2024 9:47 AM EDT Patient is agreeable to the higher dose, [facility]. Advised to call with S/E. * Telephone Encounter - Aparna Briseno NP - 10/09/2024 9:03 AM EDT We could try an increase to meloxicam 15 mg daily. Would she like me to send in the increased dose?I would advise her to notify our office if she experiences any adverse effects. * Telephone Encounter - Consuelo Montaño - 10/09/2024 8:46 AM EDT [facility] due to not being able to make it to [facility] ....says that meloxicam does work but does not last, requesting to know if that can be adjusted? documented in this encounterAud[facility] [id number] Telephone encounter Note* Telephone Encounter - Bhavna Ghotra - 10/09/2024 9:47 AM EDT Patient is agreeable to the higher dose, [facility]. Advised to call with S/E. [facility] [id number] Telephone encounter Note* Telephone Encounter - Aparna Briseno NP - 10/09/2024 9:03 AM EDT We could try an increase to meloxicam 15 mg daily. Would she like me to send in the increased dose?I would advise her to notify our office if she experiences any adverse effects. [id number] Telephone encounter Note* Telephone Encounter - Consuelo Montaño - 10/09/2024 8:46 AM EDT Patient calls to [employer] appt due to not being able to make it to [facility] ....says that meloxicam does work but does not last, requesting to know if that can be adjusted? [facility] [employer] Work Phone: [phone]) 342-127804-22-2025 NoteUT Electrophysiology Consult Note [facility] Reason for visit: Palpitations 09/23/24 She had MRI which revealed mild multilevel degenerative changes of the thoracic spine without significant thecal sac stenosis or neural foraminal stenosis. She wants those issues addressed. She felt good with Flecanide but had one or 2 breakthrough episodes. Prior HPI: Jovana Xie is a 54 y.o. [...] that was likely a PAC setting of SVT. EKG 02/19/2024 shows sinus rhythm Prior EKGs from 01/16/2024 12/25/2023 11/27/2023 and 10/19/2023 were all normal PMH: Past Medical History: Diagnosis Date Asthma Dyspnea Hyperlipidemia Hypertension Insulin resistance Palpitations PSH: Past Surgical History: Procedure Laterality Date CHOLECYSTECTOMY HYSTERECTOMY SH: Social Determinants of Health Tobacco Use: High Risk (08/22/2024) Received from [facility] Patient History Smoking Tobacco Use: Every Day Smokeless Tobacco Use: Unknown Passive Exposure: Not on file Alcohol Use: Not on file Financial Resource Strain: Not on file Food Insecurity: No Food Insecurity (08/22/2024) Received from [facility] Hunger Screening Within the past 12 months we worried whether our food would run out before we got money to buy more.: Never True Within the past 12 months the food we bought just didn't last and we didn't have money to get more.: Never True Transportation Needs: Not on file Physical Activity: Not on file Stress: Not on file Social Connections: Not on file Intimate Partner Violence: Unknown (07/26/2023) [place] Safety & Environment Fear of Current or Ex-Partner: Not on file Emotionally Abused: Not on file Physically Abused: Not on file Sexually Abused: Not on file Physically or Sexually Abused: Not on file Depression: Not on file Housing Stability: Not on file Utilities: Not on file Health Literacy: Not on file Allergies: Allergies Allergen Reactions Dexamethasone Other HAIR LOSS Duloxetine Nausea And Vomiting Hydrocodone-Acetaminophen Lisinopril Penicillins Other HIGH FEVER-CHILLS Weight: No weight available Visit Vitals Ht 1.626 m (5' 4 ) BMI 48.06 kg/m??? Smoking Status Every Day BSA 2.4 m??? Meds: Current Outpatient Medications on File Prior to Visit Medication Sig Dispense Refill atorvastatin (Lipitor) 40 mg tablet Take 40 mg by mouth in the morning. meloxicam (Mobic) 7.5 mg tablet Take 1 tablet by mouth in the morning. PARoxetine (Paxil) 20 mg tablet Take 1 tablet by mouth in the morning. Advair Diskus 250-50 mcg/dose diskus inhaler INHALE 1 PUFF BY MOUTH TWICE A DAY *RINSE MOUTH AFTER USE* albuterol 90 mcg/actuation inhaler albuterol sulfate HFA 90 mcg/actuation aerosol inhaler apixaban (Eliquis) 5 mg tablet Take 1 tablet (5 mg) by mouth in the morning and at bedtime. 60 tablet 3 budesonide-formoteroL (Symbicort) 160-4.5 mcg/actuation inhaler Symbicort 160 mcg-4.5 mcg/actuation HFA aerosol inhaler carvedilol (Coreg) 25 mg tablet Take 1 tablet (25 mg) by mouth with breakfast and with evening meal. (Patient not taking: Reported on 04/15/2024) 180 tablet 3 famotidine (Pepcid) 20 mg tablet famotidine 20 mg tablet TAKE 1 TABLET BY MOUTH EVERY DAY AT BEDTIME FOR 30 DAYS flecainide (Tambocor) 100 mg tablet Take 1 tablet (100 mg) by mouth two times daily. 60 tablet 11 gabapentin (Neurontin) 100 mg capsule if needed. [...] mouth in the morning. 90 tablet 3 omeprazole (PriLOSEC) [address] capsule omeprazole 40 mg capsule,delayed release TAKE 1 CAPSULE BY MOUTH EVERY MORNING 30 TO 60 MINUTES PRIOR TO BREAKFAST rimegepant (Nurtec ODT) 75 mg (more content not included)...[facility]03-21-2025 History of Present illness Narrative* Lonny Sykes MD - 08/22/2024 8:00 AM EDT Images from the original note were not included. [facility] [address] [place] [address], [address] [place] [address] * FOLLOW-UP NOTE ? 08/22/2024 Patient: Jovana Xie 1970 [id number] Physician: Lonny Sykes MD, FACS CHIEF COMPLAINT Severe right-sided back pain. HISTORY OF PRESENT ILLNESS Jovana Xie is a 54 y.o. female. She was in her normal state health until about 2-3 months ago. She fell backward and hurt her back. She had pain in the midthoracic area that radiated down the right side of her chest. Nothing down the legs. Nothing in the neck or upper extremities. She has not noted any bowel or bladder complaints. However she does feel like her gait is off. She does get symptoms down both legs after standing for any period of time. ALLERGIES Allergies Allergen Reactions Penicillins Vicodin [Hydrocodone-Acetaminophen] VITAL SIGNS BP (!) 153/98 Pulse 71 Ht 162.6 cm (5' 4 ) Wt 127 kg (280 lb) BMI 48.06 kg/m PHYSICAL EXAMINATION She is alert and oriented x3 without any issues of memory concentration attention span and fund of knowledge. Her cranial nerves are intact. No signs of any blunted affect. Good range of motion of the neck without any tenderness. Excellent strength in the upper extremities. She has been a diabetic for a long time and she is areflexic in the upper extremities. No Bustos's. No real sensory loss. She does have midthoracic tenderness around T8. No signs of any change in the skin. Low back has good range of motion. No spasms. Does have bilateral iliopsoas weakness at 3/5. Distal sensory loss as well. And she is ataxic. No distal weakness is noted. MRI / IMAGES Her lumbar MRI shows she has some minor changes. But no severe compromise of the roots at any levels. No instability on flexion-extension views. IMPRESSSION / PLAN With this midthoracic tenderness and iliopsoas weakness and no upper extremity weakness she is going to need an MRI of her thoracic spine. We will get her set up for that. I will also check EMG studies of the lower extremities with a longstanding diabetes. Electronically signed by: Lonny Sykes MD, FACS This note was created with the assistance of a speech recognition program with the goal of generating a timely record of the patient encounter. Inadvertent computerized professional employer consultant errors related to syntax, spelling, homophones, and/or inaudibility may be present. documented in this encounterCleveland Clinic Hillcrest HospitalHelmedix [id number] Instructions* Patient Instructions* Deb Williamson CMA - 08/22/2024 8:00 AM EDT Patient was seen today in clinic and given a neurology referral order emg/ncs bilateral lower extremities, and a mri thoracic without contrast order. Patient to call for results above is completed sp documented in this encounterCleveland Clinic Hillcrest HospitalNanofiber Solutions [facility] [id number] NotePatient Education Nutrition BMI for Adults Body mass [...] This can help you reach a healthy weight.BMI screening can be done again to see if these changes are working. How is BMI calculated? Your height and weight are measured. The BMI is found from those numbers. This can be done with U.S. or metric measurements. Note that charts and online BMI calculators are available to help you findyour BMI quickly and easily without doing these [...] measurement is 1.75 m x 1.75 m, whichequals 3.1 meters squared. 3. Divide the number of kilograms (your weight) by the meters squared number. In this example: 70 ?3.1 = 22.6. This is your BMI. What [...] for Disease Control and Prevention: cdc.gov ??? [place] Heart Association: heart.org ??? National Heart, Lung, and Blood [place]: nhlbi.nih.gov This information is not intended to replace advice given to you by your health care provider. Make sure you discuss any questions you have with your health care provider. Document Revised: 02/08/2023 Document Reviewed: 02/01/2023 [employer]pre[employer]) Patient Education ? 2023 [employer].[facility] 06-12-2024 Telephone encounter Note* Telephone Encounter - Aparna Briseno NP - 06/12/2024 3:03 PM EST Thank you! [facility] [id number] Miscellaneous Notes* Telephone Encounter - Aparna Briseno NP - 06/12/2024 3:03 PM EST Thank you! * Telephone Encounter - Sheron Heck MA - 06/12/2024 2:54 PM EST I spoke with Madeline from Dr. Erazo's office. Patient has an appointment in a few weeks, but will send a message over to the provider to see if he would like to see her sooner. * Telephone Encounter - Aparna Briseno NP - 06/12/2024 2:44 PM EST The patient's blood pressure was significantly elevated at her appointment today (154/102) and alsoat the prior appointment (167/100). She was asymptomatic. However, this is concerning to me, as chronic hypertension can result in various adverse health effects. Can you please make her primary careprovider aware and ask them to schedule an appointment with the patient to address this and help improve blood pressure control? If she does not have a PCP, I would recommend a referral for this. documented in this encounterAudrain Medical [id number] Telephone encounter Note* Telephone Encounter - Sheron Heck MA - 06/12/2024 2:54 PM EST I spoke with Madeline from Dr. Erazo's office. Patient has an appointment in a few weeks, but will send a message over to the provider to see if he would like to see her sooner. [facility] [id number] Telephone encounter Note* Telephone Encounter - Aparna Briseno NP - 06/12/2024 2:44 PM EST The patient's blood pressure was significantly elevated at her appointment today (154/102) and alsoat the prior appointment (167/100). She was asymptomatic. However, this is concerning to me, as chronic hypertension can result in various adverse health effects. Can you please make her primary careprovider aware and ask them to schedule an appointment with the patient to address this and help improve blood pressure control? If she does not have a PCP, I would recommend a referral for this. [facility] [id number] Instructions* Patient Instructions* Aparna Briseno NP - 06/12/2024 1:40 PM EST - MRI of the lumbar spine ([facility]) - Stop duloxetine documented in this encounterAudrain Medical [id number] NoteUT Electrophysiology Consult Note [place] [facility] Reason for visit: Palpitations HPI: Jovana [...] on file Intimate Partner Violence: Unknown (07/26/2023) [place] Safety & Environment Fear of Current or [...] judgement Eyes Lids a (more content not included)...[facility] 04-07-2024 History of Present illness Narrative* Ayesha Brink DO - 04/07/2024 12:15 PM EST Images from the original note were not included. Subjective Jovana Anne-Marie, 54 y.o., female Patients presents today for [...] , wrist extensors , wrist flexor , prosthetic assistant strength 5/5. LUE Strength deltoid , biceps , triceps , wrist extensors , wrist flexor , prosthetic assistant strength 5/5. RLE Strength illopsoas, quadriceps, tibialis [...] reflex 0 . Bustos's sign negative. Coordination: Tbsqcm-qp-vfkq testing and rapid alternating movements are normal Gait: Normal Review and summary of old records: X-ray hips and sacroiliac joints at [facility] on 10/27/22: No acute bone abnormality or significant degenerative changes of the hip joints. Unremarkable sacroiliac joints. CPAP compliance report from 03/06/22: Revealed poor compliance. PSG and CPAP titration at [facility] on 12/27/21: Mild sleep apnea with CPAP [...] helpful for her headaches. We do need toavoid things that are cognitively impairing however. The [...] secondary to weight gain which I think heather good idea and it can also be [...] plan, and return instructions documented in this encounterAudrain Medical [id number] Evaluation + Plan note Extracted from:Title:ANES Post GeneralAuthor:Campbell Santiago DODate:10/22/23 Plan Transfer/Discharge: Patient exhibiting no signs of N/V. Hydration status is adequate. Extracted from:Title:Jack Basic PREAuthor:Campbell Santiago DODate: 10/22/23 Plan [place] Society of Anesthesiologists (ASA) physical status classification: Class III. Anesthetic Preoperative Plan: Anesthesia General. Future Appointments Appointment Date:10/30/2023 09:45:00 AM Scheduled Provider:Melissa Erazo MD Location:[facility] Appointment Type:[facility]05-20-2024 Hospital Discharge instructions Patient Education 10/22/2023 [...] reduce GERD symptoms. Medicines. These may include: ?Sqvh-rrk-dtkyxjq antacids. ?Medicines that make your stomach empty [...] may include: ?Fatty foods, like fried foods. ?[place] fruits, like oranges or lemon. ?Other foods [...] Do not drink alcohol. General instructions Take mprv-ifs-rvzzfgt and prescription medicines only as told by [...] provider. Document Revised: 07/18/2022 Document Reviewed: 07/18/2022 [employer] (previously [employer]) Patient Education 2022 [employer]. 10/22/2023 11:00:06 Diverticulosis MAGR (CUSTOM) Diverticulosis Many [...] unsweetened, w/added ascorbic acid 1 cup 0.5 [place] 1 cup 0.7 Vegetables Cooked Green beans 1 cup 4.0 Carrots 1/2 cup sliced 2.3 Peas 1 cup 8.8 Potato (baked, with skin) 1 medium potato 3.8 Raw [place] (with peel) 1 cucumber 1.5 Lettuce 1 [...] 8.7 Peanuts 1/2 cup 7.9 Chart from [facility] 2013. SEEK IMMEDIATE MEDICAL CARE IF: [...] Reference. Available at http://www.nal.usda.gov/fnic/foodcomp/search/. Information adapted from: [facility] Patient Information 2009 Ali. [facility] CenterAscension Technology Group 2012 http://www.[employer]/contents/abcoycngbita-mspeokr-cwgcol-the-basics 10/22/2023 11:00:00 Colon Polyps Colon Polyps Colon [...] hard liquor (44 mL). General instructions Take weiw-wwr-pewksjb and prescription medicines only as told by [...] provider. Document Revised: 09/08/2020 Document Reviewed: 09/08/2020 [employer]previously [employer]) Patient Education 2022 [employer] ([employer]viously [employer] 10/22/2023 10:59:59 Colonoscopy, Care After Surgery Salam [...] day. 10/22/2023 10:59:56 Endoscopy, Care After Procedure [facility] [place] Endoscopy Care After Procedure Please read the instructions outlined below and refer to this sheet in the next few weeks. These discharge instructions provide you with general information on [facility] Your doctor may also give you [...] Document Re-Released: 11/12/2006 ExitCare Patient Information 2009 Ali. Follow Up Care 10/18/2023 10:35:15 With:Navdeep Valiente Address: [address] [place] [address] [address] [place] [phone] Business (1) When:1 to 2 weeks Comments:Call for any problems. [facility]06-07-2023 Evaluation note* Encounter Date Diagnosis Assessment Notes Treatment Notes Treatment Clinical Notes Nov, Right hand pain (ICD-10 - M79.64 1) Nov,Trigger thumb, right thumb (ICD-10 - M65.311)Patient is progressing well. May return for repeat injection or to discuss surgical release if recurs. Call with questions/concerns. [employer] Other 05-26-2023 NotePROCEDURE: XR HIPS ROMI 3_4V WO PELVIS, XR SACROILIAC JOINT 3 [...] Electronically authenticated by: ALEM PASCUAL Date: 2022-10-27 09:15[facility]05-26-2023 NotePROCEDURE: XR HIPS ROMI 3_4V WO PELVIS, XR SACROILIAC JOINT 3 [...] Electronically authenticated by: ALEM PASCUAL Date: 2022-10-27 09:15[facility]05-10-2023 Evaluation note* Encounter Date Diagnosis Assessment Notes Treatment Notes Treatment Clinical Notes October, Right hand pain (ICD-10 - M79.64 1) October,Trigger thumb, right thumb (ICD-10 - M65.311)This appears to trigger finger. We discussed the cause of this condition and the treatment options.We discussed stretching of the finger as well as massage of the palmar MCP region. We discussed theuse of cortisone injection into the palmar aspect of the hand at the trigger site can be helpful inrelieving painful symptoms. We also discussed the option [...] followup with neurosurgeon regarding left hand/arm numbness [employer] Other 01-18-2023 Evaluation note* Encounter Date Diagnosis Assessment Notes Treatment Notes Treatment Clinical Notes Jun, Cubital tunnel syndrome on left (ICD-10 - G56.22) Jun,Right carpal tunnel syndrome (ICD-10 - G56.01) Jun,Left carpal tunnel syndrome (ICD-10 - G56.02) Jun,Other specified postprocedural states (ICD-10 - Z98.890) Jun,Numbness of left hand (ICD-10 - R20.0)Discussed patient may be experiencing some level of compression at the cervical spine, versus neuropathy secondary to her diabetes. Extensive discussion about current condition and treatment options available. Based on relatively benign cervical spine radiographs, it appears more likely this is a neuropathy. We will have patient follow up with neurology as scheduled for further treatment options.Call with questions/concerns. [employer] Other 02-25-2022 Evaluation note* Encounter Date Diagnosis Assessment Notes Treatment Notes Treatment Clinical Notes Jul, Cubital tunnel syndrome on left (ICD-10 - G56.22) Patient doing well, progress as tolerated Jul,Left carpal tunnel syndrome (ICD-10 - G56.02) Jul,ther specified postprocedural states (ICD-10 - Z98.890) Jul,Numbness of right hand (ICD-10 - R20.0) We will refer patient for EMG right upper extremity [employer] Other 12-17-2021 Evaluation note* Encounter Date Diagnosis Assessment Notes Treatment Notes Treatment Clinical Notes May, Cubital tunnel syndrome on left (ICD-10 - G56.22) Patient is healing well and improving as expected. We will continue to give this more healing time.She can continue with activity as tolerated without restrictions. We will follow up with the patient in about 4 weeks. May,eft carpal tunnel syndrome (ICD-10 - G56.02) May,Other specified postprocedural states (ICD-10 - Z98.890) [employer] Other 10-20-2021 Evaluation note* Encounter Date Diagnosis Assessment Notes Treatment Notes Treatment Clinical Notes Mar, Cubital tunnel syndrome on left (ICD-10 - G56.22) EMG was reviewed. Based on location of pain and exam findings we will proceed with a left cubital tunnel release and a left carpal tunnel release. Risks and benefits of procedure explained to patient; patient verbalizes understanding. Mar,eft carpal tunnel syndrome (ICD-10 - G56.02) Mar,re-op exam (ICD-10 - Z01.818) [employer] Other 09-09-2021 NoteHNO ID: [id number] Author: Maris Ramirez APRN.[employer]OUNDATION Service: ? Author Type: Nurse Practitioner Type: Progress Notes Filed: 02/11/2021 7:54 AM Note Text: Chronic Pain Clinic Virtual Visit Evaluation Patient is identified by name and date of . This is a virtual visit using [employer] video visit. It required patient-provider interaction for the medical decision making as documented below. Date: February 10, 2021 - 7:34 AM Chief Complaint: lower back pain SUBJECTIVE: Jovana Xie is a 50 year old who presents to [facility] for a follow [...] injections with her local pain physician in [place]. She does not recall the names of [...] areas of pain. Also photos sent via [employer] were reviewed during this visit. New Imaging [...] Obesity, Class III, BMI 40-49.9 (morbid obesity) ([facility]) Jovana Xie is a 50 year old female with lower back pain that intermittently radiates down to her buttocks and posterior legs. She is s/p lumbar decompression surgery approx 4-5 years ago. She states that she was pain free up until about a year and a half ago (more content not included)...[facility]09-01-2021 NoteHNO ID: [id number] Author: RT Nikkie(R) Service: ? Author Type: Hydrology Technician Type: Progress Notes Filed: 02/02/2021 5:23 PM [...] BY: RT Nikkie(R) February 02, 2021 5:23 [facility]08-26-2021 NoteHNO ID: [id number] Author: José Miguel Suarez, floral manager Service: Radiology Author Type: Hydrology Technician Type: Progress Notes Filed: 01/27/2021 10:27 AM [...] Xie DATE: January 27, 2021 TIME: 10:02 [facility]08-26-2021 History of Present illness Narrative* José Miguel [...] 2021 TIME: 10:02 AM [facility] NoteHNO ID: [id number] Author: Maegan Angulo MD Service: ? Author [...] internal providers or by letter via the [employer] Service for external providers. Chief Complaint: Back pain History of Present Illness: Jovana Xie is a 50 year old who presents to [facility] for a follow [...] line specific nursing protocol (more content not included)...[facility] Evaluation + Plan note No data available for this section [facility] Future Appointments Appointment Date:10/25/2023 09:30:00 AM Scheduled Provider:Melissa Erazo MD [facility] App[facility]ments Appointment Date:10/22/2023 10:30:00 AM Scheduled Provider: Location:[facility] Appointment Type:Surgery FT Appointment Date:10/25/2023 09:30:00 AM Scheduled Provider:Melissa Erazo MD Location:[facility] Appointment Type:[facility] Evaluation + Plan note Future Appointments Appointment Date:11/27/2023 09:15:00 AM Scheduled Provider:Melissa Erazo MD Location:[facility] Appointment Type:[facility] Evaluation + Plan note Future Appointments Appointment Date:12/04/2024 08:00:00 AM Scheduled Provider: Location:[facility] Appointment Type: Medicare Wellness Subsequent Appointment Date:12/04/2024 08:45:00 AM Scheduled Provider:Melissa Erazo MD Location:[facility] Appointment Type:[facility] Evaluation noteNo assessment information available [facility] Work Phone: Evaluation noteNort [employer] Other Evaluation note* Diagnosis Facet arthropathy, lumbar Lumbosacral spondylosis without myelopathy Degenerative disc disease, lumbar Degeneration of lumbar or lumbosacral intervertebral disc [facility] Diagnosis Pathological fracture, other site, initial encounter for fracture [facility] Diagnosis Vulvar itching Pruritus of genital organs CREATIVE/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 exam for high-risk Medicare patient [facility]* Diagnosis Chronic migraine without aura with status migrainosus, not intractable (CMS/HCC) - Primary Lumbosacral radiculopathy Thoracic or lumbosacral neuritis or radiculitis, unspecified Ulnar neuropathy of left upper extremity documented [facility] this encounter [facility]* Diagnosis Chronic migraine without aura with status migrainosus, not intractable (CMS/HCC) - Primary Lumbosacral radiculopathy Thoracic or lumbosacral neuritis or radiculitis, unspecified Abnormal MRI, lumbar spine Ulnar neuropathy of left upper extremity documented in this encounter [facility]* Diagnosis Low back pain, unspecified back pain laterality, unspecified chronicity, unspecified whether sciatica present- Primary [facility] Diagnosis Thoracic myelopathy- Primary [facility]* Diagnosis Lumbar spondylosis Lumbosacral spondylosis without myelopathy documented in this encounter [facility]* Diagnosis Onset Date Resolution Status Admit Date Abnormal MRI, lumbar spine chronicJuly 2024 1:37pmCarpal tunnel syndrome, bilateralchronicJuly 2024 1:37pmEpisodic migrainechronicJuly 2024 1:37pmLumbosacral radiculopathychronicJuly 2024 1:37pmUlnar neuropathy of left upper extremitychronicJuly 2024 1:37pm [facility] Work Phone: History general Narrative - Reported* Type Description Date Medical History CARPAL TUNNEL Medical HistoryHTNMedical HistoryhyperglycemiaSurgical HistoryHYSTERECTOMY Surgical HistoryTONSILECTOMYSurgical HistoryBACK SURGERYSurgical History cholecystectomySurgical Historydental surgeryHospitalization HistorySee Above [facility] [place] SnapMD Other History general Narrative - ReportedNoSouthwood [facility]iatric Hospital Snap[facility] Other Hospital Discharge instructions No data available for this section [facility] HospitalInstructionsNot on filedocumented in this encounter [facility] SystemProgress note No data available for this section [facility] HospitalReason for referral (narrative)No reason for referral information availableUniversity Hospitals Beach[facility] Work Phone: Summary Purpose Family History No Family History Records Found Relationship Condition Age at Onset Recorded Date/T priya Not Specified Adopted Unknown daughterLupusUnknownfamily memberHeart diseaseUnknown Advance Directives No Advanced Directives Records Found Advance Directive Response Recorded Date/ Time Advance Directives No February 12:34pm Advance Directive Response Recorded Date/ Time Advance Directives No February 11:34am Advance Directive Response Recorded Date/ Time Advance Directives No December 18 1:31pm Chief Complaint and Reason for Visit Chief Complaint Carpal Tunnel Carpal Tunnel Chief Complaint Carpal Tunnel Carpal Tunnel Carpal Tunnel Chief Complaint R20.0 Chief Complaint Admit Date November 24, 2024 3:48 pm Reason for Visit Admit Date Abnormal MRI, lumbar spine December 18 1:37pm Carpal tunnel syndrome, bilateral December 022024 1:37pm Episodic migraine December 18, 2024 1:37 pm Lumbosacral radiculopathy December 18 1:37pm Ulnar neuropathy of left upper extremity December 18, 2024 1:37pm Chief Complaint Admit Date December 23, 2024 3:48 pm R20.2 December 31, 2024 8:46 am Reason for Visit Admit Date Confusion December 18, 2024 1:37 pm Abnormal MRI, lumbar spine December 18 1:37pm Carpal tunnel syndrome, bilateral December 022024 1:37pm Episodic migraine December 18, 2024 1:37 pm Lumbosacral radiculopathy December 18 1:37pm Ulnar neuropathy of left upper extremity December 18, 2024 1:37pm Reason for Referral SpecialtyDiagnoses / ProceduresReferred By ContactReferred To ContactMR IMAGING Diagnoses Pathological fracture, other site, initial encounter for fracture Procedures MRI LUMBAR SPINE WO/W IVCON MRI, LUMBAR SPINE COMBO Maris Ramirez, DIVISION MERCHANDISE MANAGER.[employer] [address] [place] [place] [address] [place] [address] Referral IDStatusReasonStart DateExpiration DateVisits RequestedVisits [id number] Auto-Generated Referral Reason Refer to OL[facility] or Dr Padmini nath for EMG right upper ext Diagnosis 1 Numbness of right rojas nd (R20.0) Referral Organization [facility] Referring Provider First Name Charu Referring Provider Last Name Ankit Referring Provider Specialty Hand Surger y Referred Organization Unknown Facility Referred Provider Specialty Neurology Referral Priority Routine Additional Source Comments INFORMATION SOURCE (unrecogn ized section and content) DATE CREATED AUTHOR 07/07/2021 [facility] DATE CREATED AUTHOR AUTHOR'S ORGANIZ ATION 11/10/2022 [facility] DATE CREATED AUTHOR AUTHOR'S ORGANIZ ATION 03/22/2024 [facility] DATE CREATED AUTHOR AUTHOR'S ORGANIZ ATION 06/28/2024 [facility] DATE CREATED AUTHOR AUTHOR'S ORGANIZ ATION 08/21/2024 [facility] DATE CREATED AUTHOR AUTHOR'S ORGANIZ ATION 08/23/2024 [facility] DATE CREATED AUTHOR AUTHOR'S ORGANIZ ATION 08/23/2024 [facility] DATE CREATED AUTHOR AUTHOR'S ORGANIZ ATION 09/16/2024 [facility] DATE CREATED AUTHOR AUTHOR'S ORGANIZ ATION 12/17/2024 [facility] DATE CREATED AUTHOR AUTHOR'S ORGANIZ ATION 01/24/2025 [facility] DATE CREATED AUTHOR AUTHOR'S ORGANIZ ATION 03/10/2025 [facility] DATE CREATED AUTHOR AUTHOR'S ORGANIZ ATION 04/02/2025 [facility] DATE CREATED AUTHOR AUTHOR'S ORGANIZ ATION 04/07/2025 [facility] DATE CREATED AUTHOR AUTHOR'S ORGANIZ ATION 04/11/2025 [facility] Care Teams (unrecognized sec tion and content) Team Status: Active Member Role Status Dates Melissa Erazo MD Primary Care Provider Active Team Status: Inactive Member Role Status Dates Aparna Briseno , [employer]ES[employer] HELPER-C Attending Provider Active Start: December 18, 2024 End: December 18, 2024Gianna Nunez Care ProviderActiveStart: December 18, 2024 End: December 18, 2024 Team Status: Active Member Role Status Dates Elvia Sweeney MD Primary Care Provider Active S tart: December 23, 2024 Chiki Light ProviderActiveStart: December 23, 2024 Team Status: Inactive Member Role Status Dates Melissa Erazo MD Primary Care Provider Active Start: December 31, 2024 End: December 31, 2024Aparna Briseno APRN-FNP-CAttending ProviderActiveStart: December 31, 2024 End: December 31, 2024 Team Status: Inactive Member Role Status Dates Charu Pham MD Attending Provider Active Gianna Erwin Care ProviderActive Team Status: Active Member Role Status Dates Elvia Sweeney MD Primary Care Provider Active Team Status: Inactive Member Role Status Dates Elvia Sweeney MD Primary Care Provider Active Chiki Serrato ProviderActiveTeam MemberRelationshipSpecialty Start DateEnd Date Asha Louis PA-C [address] [place] [address] ReferringNeurology12/09/20Team MemberRelationshipSpecialtyStart DateEnd Date Asha Louis PA-C [address] [place] [address] ReferringNeurology12/09/20Team MemberRelationshipSpecialtyStart DateEnd Date Ayesha Brink DO [address] [place] [address] Referring GqgkesnjkNdiiwsrpp08/1/24Team MemberRelationshipSpecialtyStart DateEnd Date Ayesha Brink DO [address] [address] Referring XeskaccifPzivckeqi27/1/24Team MemberRelationshipSpecialtyStart DateEnd Date Ayesha Brink DO [address] [address] Referring AyzzcmbxjRpuetejzp37/1/24 Aparna Briseno NP [address] [phone] Nurse ZpvkscuqbpeaVkjhtlhbi35/4/24Team MemberRelationshipSpecialtyStart DateEnd Date Melissa Erazo MD [address] [phone] PCP - GeneralFamily Medicine06/12/24 Ayesha Brink DO [address] [phone] Referring LkktjmdjtBwxcucvil03/1/24 Aparna Briseno NP [address] [phone] Nurse YkmbndvlfllqXbsuetfxt03/4/24Team MemberRelationshipSpecialtyStart DateEnd Date Melissa Erazo MD [address] [place] [address] PCP - GeneralFamily Medicine06/12/24 Ayesha Brink DO [address] [address] Referring WkntsclusRgrglwudv24/1/24 Aparna Briseno NP [address] [phone] Nurse RqqbxxlbmzteTejupbbug89/4/24Team MemberRelationshipSpecialtyStart DateEnd Date Melissa Erazo MD [address] [phone] PCP - [facility]Van [facility] Centerly Medicine06/12/24 Ayesha Brink DO [address] [phone] Referring CjwxrsnckLxjwtpolk48/1/24 Aparna Briseno NP [address] [phone] Nurse RthvvtaarcdwLqolcfyru85/4/24Team MemberRelationshipSpecialtyStart DateEnd Date Provider, Conversion, PCP - General08/11/13Team MemberRelationshipSpecialtyStart DateEnd Date Provider, Conversion, PCP - General08/11/13Team MemberRelationshipSpecialtyStart DateEnd Date Melissa Erazo MD [address] [phone] PCP - [facility] Medicine06/12/24 Ayesha Brink DO [address] [phone] Referring RjoierrnyAaqmfjdsf89/1/24 Aparna Briseno NP [address] [phone] Nurse GjjzrruwyykwJjicuuwpl13/4/24 Team Status: Active Member Role Status Dates Elvia Sweeney MD Primary Care Provider Active S tart: November 24, 2024 Edenilson Moyer MDAttending ProviderActiveStart: November 24, 2024 Goals (unrecognized section and content) Goals may be documented in a n alternate sectionNo InformationNo InformationNo InformationGoals may be documented in an alternate sectionNo Information No data available for this sectionGoals may be documented in an alternate sectionNo InformationNo Information No data available for this section No data available for this section No data available for this section No data available for this sectionNot on filedocumented as of this encounterNot on filedocumented as of this encounterGoals may be documented in an alternate sectionGoals may be documented in an alternate section REASON FOR VISIT (unrecogniz ed section and content) SpecialtyDiagnoses / ProceduresReferred By ContactReferred To ContactMR IMAGING Diagnoses Pathological fracture, other site, initial encounter for fracture Procedures MRI LUMBAR SPINE WO/W IVCON MRI, LUMBAR SPINE COMBO Maris Ramirez APRN.[employer] [address] [place] [address] [place] [address] Referral IDStatusReasonStart DateExpiration DateVisits RequestedVisits [id number] Auto-Generated Referral /[id number]pw PainReasonCommentsFollow-upEp/barber shop manager last seen 17 lumbar films [facility] not w/c emailed pkt &xray ok per HealySpecialtyDiagnoses / ProceduresReferred By ContactReferred To Contact Neurosurgery Diagnoses Lumbosacral radiculopathy Procedures [id number] (SNOMED CT) - AMB REFERRAL TO NEUROSURGERY Aparna Briseno APRN-DIRECTOR FOUNDATION [address] [phone] Phone: tel: fax: Lonny Sykes MD [address] [facility] [address] [place] [address] Phone: tel: fax: Referral IDStatusReasonStart DateExpiration DateVisits RequestedVisits [id number] Review/ Source Comments (unrecognize d section and content) In the event this informatio n is protected by the Federal Confidentiality of Alcohol and Drug Abuse Patient Records regulations: The Federal rules restrict any use of the information to criminally investigate or prosecute any alcohol or drug abuse patient.[facility]In the event this information is protected by the Federal Confidentiality of Alcohol and Drug Abuse Patient Records regulations: The Federal rules restrict any use of the information to criminally investigate or prosecute any alcohol or drug abuse patient.[facility] FOR RECORDS PERTAINING TO PATIENTS WHO [...] BE BASED ON THE PRIMARY CLINICAL RECORDS. [employer] [facility]. provides no warranty or guarantee of the accuracy or completeness of information in this document.
[2025-04-21 11:15] LABS: Hematocrit 46.9 % (36.0-48.0); Hemoglobin 15.6 g/dL (12.0-16.0); Immature Granulocytes Abs Auto 0.03 10^3/uL (0.00-0.03); Immature Granulocytes Pct Auto 0.3 % (0.0-0.5); Lymphocytes Absolute Auto 2.9 10^3/uL (1.2-3.8); Mean Corpuscular HGB Conc 33.3 g/dL (29.9-35.2); Mean Corpuscular Hemoglobin 29.8 pg (26.7-34.0); Mean Corpuscular Volume 89.7 fL (81.0-99.0); Platelet Count 249 10^3/uL (150-450); Red Blood Count 5.23 10^6/uL (4.20-5.40); White Blood Count 10.4 10^3/uL (4.0-11.0)
[2025-04-21 12:14] LABS: Anion Gap 12.8; Blood Urea Nitrogen 20.0 mg/dL (7.0-18.0); Calcium 9.3 mg/dL (8.5-10.1); Carbon Dioxide 25.1 mmol/L (21.0-32.0); Chloride 107 mmol/L (98-107); Estimated GFR (African America >60 (>=60 mL/min/1.73m^2); Estimated GFR (Non-African Ame 56 (>=60 mL/min/1.73m^2); Glucose 129 mg/dL (74-106); Potassium 3.9 mmol/L (3.5-5.1); Sodium 141 mmol/L (136-145)
== END 2025-04-21 10:47 | disposition home or self-care (01) ==
LOC: LAB 10:53
PROVIDERS: PCP Nurse Practitioner Family; Visit Provider Internal Medicine Cardiovascular Disease
DX: R00.2 Palpitations (principal)
CPT/HCPCS: 36415; 80048; 85025